=== PATIENT | male | born 1955 | race Caucasian/White ===

== ENCOUNTER 2018-07-28 13:56 | Inpatient (IN) | payer OTHER ==
[2018-07-28] MEDS ORDERED: ACETAMINOPHEN 1000 MG/100 ML VIAL (NON FORMULARY) IVPB ONE (15:03)
--- NOTE | 2018-07-28 15:04 | PDOC ---
History of Present Illness - General Chief Complaint: SIRS, Suspected/Possible Stated Complaint: FEVER/FAMILY REQUEST Time Seen by Provider: 07/28/18 15:02 History Source: Sibling (Sister), Care Home Records - History of Present Illness Initial Comments: Pt is a 62 yo M, with PMH of [facility]per family[facility]". Pt is accompanied by his sister, who states the pt has difficulty eating at baseline (on regular and thin liquid diet), but has not eaten or drank anything for the past 2 days. She states he has also had a fever, and that the residential has not been treating him. She states he has had "strokes in the past from his medications", and that over the past few months, the pt has become more non-verbal, does not follow commands, his extremities are flexed, and there are many days that he does not eat. Pt is not able to provide any history. Of note, the residential records state that the pt temperature was 100.5 on his vital signs, with no recorded Tylenol given today. Past history of alcohol abuse, no cigarettes or illicit drug use per family. No recent travel. Unknown sick contacts at the residential. Surgical: no relevant history. Family: no relevant history. 07/28/18 19:02 Past History - Travel Traveled outside of the country in the last 30 days: No Close contact w/someone who was outside of country & ill: No - Past Medical History Allergies/Adverse Reactions: Allergies Allergy/AdvReac Type Severity Reaction Status Date / Time No Known Allergies Allergy Verified 07/28/18 14:24 Home Medications: Ambulatory Orders Ascorbic Acid [C-500] 500 mg PO DAILY 07/28/18 Aspirin [ASA -] 81 mg PO DAILY 07/28/18 Atorvastatin Calcium [Lipitor] 10 mg PO HS 07/28/18 Divalproex Sodium 250 mg PO BID 07/28/18 Donepezil HCl 10 mg PO DAILY 07/28/18 Haloperidol 2.5 mg PO BID 07/28/18 Haloperidol Decanoate [Haloperidol Decanoate 100] 100 mg IM MONTHLY 07/28/18 Quetiapine Fumarate [Quetiapine Fumarate ER] 300 mg PO HS 07/28/18 Zinc Sulfate 220 mg PO DAILY 07/28/18 Cardiac Disorders: Yes (ashd) COPD: No Dementia: Yes Hypercholesterolemia: Yes Psychiatric Problems: Yes (anxiety schiophrenia bi polor) - Suicide/Smoking/Psychosocial Hx Smoking History: Never smoked Have you smoked in the past 12 months: No Information on smoking cessation initiated: No Hx Alcohol Use: No Drug/Substance Use Hx: No Review of Systems - Review of Systems Able to Perform ROS?: No (clinical condition) Is the patient limited Albanian proficient: Yes *Physical Exam - Vital Signs Last Vital Signs Temp Pulse Resp BP Pulse Ox 103.4 F H 101 H 20 123/64 94 L 07/28/18 14:25 07/28/18 14:25 07/28/18 14:25 07/28/18 14:25 07/28/18 14:25 - Physical Exam General Appearance: Yes: Nourished, Appropriately Dressed, Mild Distress (Pt febrile, diaphoretic, extremities held in flexion.) HEENT: positive: EOMI, VICTORIA, Normal ENT Inspection, Pharynx Normal. negative: Normal Voice (pt non-verbal), Scleral Icterus (R), Scleral Icterus (L), Pharyngeal Erythema, Tonsillar Exudate, Tonsillar Erythema, Nasal Congestion, Rhinorrhea Neck: positive: Trachea midline, Rigid (pt holding extremities and neck rigidly) , Supple. negative: Tender, Lymphadenopathy (R), Lymphadenopathy (L) Respiratory/Chest: positive: Lungs Clear, Normal Breath Sounds. negative: Chest Tender, Respiratory Distress, Accessory Muscle Use, Crackles, Wheezing Cardiovascular: positive: Regular Rhythm, S1, S2, Tachycardia. negative: Regular Rate, Edema, JVD, Murmur Vascular Pulses: Carotid (R): 4+, Carotid (L): 4+ Gastrointestinal/Abdominal: positive: Normal Bowel Sounds, Flat, Soft. negative : Tender, Organomegaly, Pulsatile Mass, Distended, Guarding, Rebound Rectal Exam: positive: deferred Lymphatic: negative: Adenopathy, Tenderness Musculoskeletal: positive: Normal Inspection. negative: CVA Tenderness Extremity: positive: Normal Capillary Refill, Normal Inspection, Pelvis Stable, Other (rigidity of arms and legs, pt will grab examiner's hands, but arms are held flexed). negative: Normal Range of Motion, Tender, Pedal Edema, Erythema Integumentary: positive: Normal Color, Warm, Clammy, Diaphoresis, Other (mild pressure ulcer (stage 1) on L heel that appears to have blood blister). negative: Dry, Jaundice, Cold, Rash Neurologic: positive: Alert, Normal Response, Motor Strength 5/5, Other (Pt will grab examiner's hands, non-verbal (at baseline), has eyes open during examination. Unable to assess lens maker as pt will not follow commands.). negative: lens maker II-XII NML intact, Fully Oriented, Normal Mood/Affect Moderate Sedation - Procedure Monitoring Vital Signs: Procedure Monitoring Vital Signs Temperature 103.4 F H 07/28/18 14:25 Pulse Rate 101 H 07/28/18 14:25 Respiratory Rate 20 07/28/18 14:25 Blood Pressure 123/64 07/28/18 14:25 O2 Sat by Pulse Oximetry (%) 94 L 07/28/18 14:25 ED Treatment Course - LABORATORY CBC & Chemistry Diagram: 07/28/18 15:25 07/28/18 15:25 Medical Decision Making - Medical Decision Making Pt was seen at bedside, also will be seen by attending Dr. Vu. Pt presenting from [facility] "per family's request". Pt is accompanied by his sister, who states the pt has difficulty eating at baseline (on regular and thin liquid diet), but has not eaten or drank anything for the past 2 days. She states he has also had a fever, and that the residential has not been treating him. She states he has had "strokes in the past from his medications", and that over the past few months, the pt has become more non-verbal, does not follow commands, his extremities are flexed, and there are many days that he does not eat. Pt is not able to provide any history. Of note, the residential records state that the pt temperature was 100.5 on his vital signs, with no recorded Tylenol given today. Rectal temp 103.4, 94% on RA. PE showed pt Considering sepsis (UTI vs pneumonia) vs viral infection (influenza) vs NMS (pt on Haldol, seroquel for bipolar) Ordered work-up including septic work-up/parra-cultures, influenza swab, CT head non-contrast and chest x-ray. Provided [interventions/meds] for improvement of [pain/symptom control]. Will continue to reassess pt and monitor for symptomatic improvement. ECG: HR 98, intervals WNL. No significant ST segment elevations or depressions. Flipped T wave in V3, no prior ECG for comparison. 07/28/18 15:57 CBC showed WBC 11.6 UA negative Trop .02 Pending chemistry and head CT read. 07/28/18 16:53 Moderate atrophy and moderate ventricular dilatation. The lateral and third ventricles are slightly more dilated than the fourth likely due to central atrophy and less likely due to normal pressure hydrocephalus or aqueduct of Sylvius narrowing/stenosis. Moderate periventricular chronic microvascular ischemic disease changes. No mass lesion, gross acute infarct or intracranial hemorrhage are identified. Correlate clinically to determine further evaluation and follow-up. 07/28/18 17:17 Chest x-ray also appears clear, no focal infiltrate. CMP: Na 150, Cl 119, AST 91, ALT 157 07/28/18 17:18 Considering no source of infection, likely NMS. Dantrolene contraindicated due to elevated liver enzymes (pt has history of alcohol abuse). Will provide 1 mg IV ativan. 07/28/18 17:25 CK 534 Spoke with Poison Control Center, other options may be bromocriptine and amantadine. Tox Fellow will return call. 07/28/18 18:05 Repeat rectal temp 102.5. Will continue with plan for passive re-cooling, fluid hydration, and ativan as needed. Spoke with Tox Fellow at Poison Control. Suggested step-up to ICU admission, as pt can become hyperthermic quickly, and needs frequent rectal temperature readings. Suggested to stick with ativan PRN as needed, fluid hydration, and to stop the haldol medication. Spoke with ICU resident who will come to see the pt. Repeat rectal temp 102.5. Will continue with plan for passive re-cooling, fluid hydration, and ativan as needed. 07/28/18 18:58 Pt has been accepted for ICU admission. Bed is ready upstairs. Pt is stable at this time. 07/28/18 19:43 *DC/Admit/Observation/Transfer Diagnosis at time of Disposition: Neuroleptic malignant syndrome, Fever of unknown origin - Discharge Dispostion Condition at time of disposition: Guarded Decision to Admit order: Yes - Referrals - Patient Instructions - Post Discharge Activity
[2018-07-28] MEDS ORDERED: ACETAMINOPHEN INJECTION 100 ML IVPB ONE (15:19)
[2018-07-28] MEDS ORDERED: SODIUM CHLORIDE 2,000 ML IV STA (15:20)
[2018-07-28 16:16] LABS: BASO % 0.5 % (0-2.0); HEMATOCRIT 41.3 % (35.4-49); HEMOGLOBIN 14.1 GM/dL (11.7-16.9); MCHC 34.2 g/dl (32.0-35.9); MEAN CELL VOLUME 90.7 fl (80-96); MEAN PLT VOLUME 10.2 fl (7.5-11.1); MONO % 8.3 % (3.8-10.2); NEUT % 73.2 % (42.8-82.8); PLATELET COUNT 287 K/MM3 (134-434); RBC 4.55 M/mm3 (4.00-5.60); RDW 14.4 % (11.9-15.9); WHITE BLOOD COUNT 11.6 K/mm3 (4.0-10.0)
--- NOTE | 2018-07-28 16:19 | EKG ---
Test Reason : Blood Pressure : / mmHG Vent. Rate : 098 BPM Atrial Rate : 098 BPM P-R Int : 130 ms QRS Dur : 074 ms QT Int : 354 ms P-R-T Axes : 051 -02 -05 degrees QTc Int : 451 ms NORMAL SINUS RHYTHM NONSPECIFIC ST ABNORMALITY NO PREVIOUS ECGS AVAILABLE Confirmed by MD ROGELIO, GABBIE ([id number]) on 07/28/2018 4:18:50 PM Referred By: Confirmed By:GABBIE MERCADO MD
[2018-07-28 16:35] LABS: INR 1.36 (0.83-1.09); PROTHROMBIN TIME (PATIENT) 16.1 SEC (9.7-13.0)
[2018-07-28 16:38] LABS: ACTIVATED PTT 28.2 SECONDS (25.2-36.5)
[2018-07-28 16:38] LABS: URINE APPEARANCE CLEAR; URINE BILIRUBIN NEGATIVE (<2.0 mg/dL); URINE COLOR AMBER; URINE GLUCOSE (UA) NEGATIVE (NEGATIVE); URINE KETONE TRACE (NEGATIVE); URINE LEUK ESTERASE NEGATIVE (NEGATIVE); URINE NITRITE NEGATIVE (NEGATIVE); URINE PROTEIN NEGATIVE (NEGATIVE); URINE UROBILINOGEN 4.0 E.U/dl mg/dL (0.2-1.0)
--- NOTE | 2018-07-28 16:47 | PDOC ---
Attending Attestation - Resident Resident Name: Crissy Hall - ED Attending Attestation I have performed the following: I have examined & evaluated the patient, The case was reviewed & discussed with the resident, I agree w/resident's findings & plan, Exceptions are as noted - HPI HPI: 07/28/18 16:42 62 M with h/o dementia, CVAs presenting to ED with altered mental status and poor PO. Pt is current resident at [facility]. Family member states that the pt has not eaten or drank anything in several days. She notes that pt was previously alert and ambulatory, though with baseline dementia. However, over the past few months, she notes that the [facility] has been giving him large amounts of medication to keep him sedated. Pt is on Haldol BID, as well as seroquel and weekly haldol depo injection. Pt now has been exhibiting muscle rigidity and not taking any PO due to difficulty swallowing. - Physicial Exam PE: 07/28/18 16:48 GENERAL: unresponsive HEAD: No signs of trauma EYES: PERRLA, EOMI, sclera anicteric, conjunctiva clear ENT: Auricles normal inspection, hearing grossly normal, nares patent, oropharynx clear without exudates. Moist mucosa NECK: Nontender, no stepoffs, Normal ROM, supple, no lymphadenopathy, JVD, or masses LUNGS: Breath sounds equal, clear to auscultation bilaterally. No wheezes, and no crackles HEART: Regular rate and rhythm, normal S1 and S2, no murmurs, rubs or gallops ABDOMEN: Soft, nontender, normoactive bowel sounds. No guarding, no rebound. No masses EXTREMITIES: no edema. No clubbing or cyanosis. No cords, erythema, or tenderness NEUROLOGICAL: + muscle rigidity SKIN: Warm, Dry, normal turgor, no rashes or lesions noted. - Critical Care Time Total Critical Care Time: 45 Critical Care Statement: The care of this patient involved high complexity decision making to prevent further life threatening deterioration of the patient 's condition and/or to evaluate & treat vital organ system(s) failure or risk of failure. - Medical Decision Making 07/28/18 16:48 62 M with fevers and AMS. Febrile and tachycardic in ED. Will perform septic work up. Pt with rigidity on exam, was given high dose antipsychotics at [facility] - consider NMS. - Labs, cultures - CXR, UA - CT head - IVF, tylenol, abx - admit 07/28/18 17:42 UA wnl CXR with no obvious consolidation. Source of fever unclear at this time. Cannot r/o meningitis as pt unable to cooperate with LP. Will empirically cover with vanc/zosyn Will also tx for neuroleptic malignant syndrome given high dose antipsychotics and muscle rigidity Cannot give dantrolene due to elevated LFTs and hepatotoxicity Will give ativan IV Will notify poison control Admit to hospital
[2018-07-28 17:05] LABS: ALK PHOS 212 U/L (45-117); ANION GAP 7 MMOL/L (8-16); BILIRUBIN,TOTAL 0.7 mg/dL (0.2-1); BLOOD UREA NITROGEN 18 mg/dL (7-18); CALCIUM 8.6 mg/dL (8.5-10.1); CHLORIDE 119 mmol/L (98-107); CO2 24 mmol/L (21-32); CREATININE 0.9 mg/dL (0.55-1.3); GLUCOSE,RANDOM 114 mg/dL (74-106); POTASSIUM 4.7 mmol/L (3.5-5.1); SGOT/AST 91 U/L (15-37); SGPT/ALT 157 U/L (13-61); SODIUM 150 mmol/L (136-145)
[2018-07-28] MEDS ORDERED: LORazepam 2 MG/ML SDV VIAL ONE (17:24)
[2018-07-28] MEDS ORDERED: ACETAMINOPHEN 325 MG TABLET (FP) PO PRN (18:15)
[2018-07-28] MEDS ORDERED: SODIUM CHLORIDE 1,000 ML IV SCH ×2 (18:15→19:54)
[2018-07-28] MEDS ORDERED: PIPERACILLIN/TAZOB 3.375 GM 3.375 GM in DEXTROSE 5%-WATER - 50 ML IVPB ONE (18:18)
[2018-07-28] MEDS ORDERED: VANCOMYCIN 1,250 MG in DEXTROSE 5%-WATER - 250 ML IVPB ONE (18:18)
[2018-07-28] MEDS ORDERED: PIPERACILLIN/TAZOB 3.375 GM 3.375 GM/50 ML BAG IVPB ONE (18:30)
--- NOTE | 2018-07-28 18:35 | HP ---
CHIEF COMPLAINT: altered mental status, poor intake of oral foods and fluids and high grade fever PCP: Dr. Theresa Estes HISTORY OF PRESENT ILLNESS: 62 year old male who is a resident at [facility] with history of dementia, prior alcohol abuse, CVA's, and hyperlipidemia who presented to the ER with an altered mental status, poor oral intake of oral foods and fluids. Family at bedside reported he has been on haldol and seroquel and has been more lethargic with increased muscle rigidity. He presents with a fever of 103.4. CXR and urinalysis is negative. Labs notable for WBC 11.6, normal lactic acid level, sodium 150, chloride 19, ast 91, alt 157 and creatine kinase 534 and a normal troponin. CT scan of head with moderate atrophy and no acute findings of infarct or hemorrhage. EKG showing a normal sinus rhythm with no signs of ischemia, nonspecific ST changes and no prolongation of Qtc. ER has spoke with Poison Control and was given one dosage of IV lorazepam. He has significant hyperthermia and is going to be evaluated by Critical Care Team for a possible ICU admission. He was started on broad spectrum IV antibiotics. He was admitted for a further sepsis workup. ER course was notable for: (1) Fever on unknown etiology / ?Neuroleptic Malignant Syndrome given was taking high dosages of antipsychotics and with increased muscle rigidity (2) Altered Mental Status/Lethargy /Poor Nutrition Recent Travel: Denies PAST MEDICAL HISTORY: Dementia Alcohol Abuse CVA's Hyperlipidemia PAST SURGICAL HISTORY: none Social History: Smoking:Family denies Alcohol:prior history of alcohol abuse Drugs: Family denies Family History: Allergies No Known Allergies Allergy (Verified 07/28/18 14:24) HOME MEDICATIONS: Home Medications Medication Instructions Recorded Ascorbic Acid [C-500] 500 mg PO DAILY 07/28/18 Aspirin [ASA -] 81 mg PO DAILY 07/28/18 Atorvastatin Calcium [Lipitor] 10 mg PO HS 07/28/18 Divalproex Sodium 250 mg PO BID 07/28/18 Donepezil HCl 10 mg PO DAILY 07/28/18 Haloperidol 2.5 mg PO BID 07/28/18 Haloperidol Decanoate [Haloperidol 100 mg IM MONTHLY 07/28/18 Decanoate 100] Quetiapine Fumarate [Quetiapine 300 mg PO HS 07/28/18 Fumarate ER] Zinc Sulfate 220 mg PO DAILY 07/28/18 REVIEW OF SYSTEMS Unable to obtain accurate ROS due to patient mental status CONSTITUTIONAL: Absent: fever, chills, diaphoresis, generalized weakness, malaise, loss of appetite, weight change HEENT: Absent: rhinorrhea, nasal congestion, throat pain, throat swelling, difficulty swallowing, mouth swelling, ear pain, eye pain, visual changes CARDIOVASCULAR: Absent: chest pain, syncope, palpitations, irregular heart rate, lightheadedness , peripheral edema RESPIRATORY: Absent: cough, shortness of breath, dyspnea with exertion, orthopnea, wheezing, stridor, hemoptysis GASTROINTESTINAL: Absent: abdominal pain, abdominal distension, nausea, vomiting, diarrhea, constipation, melena, hematochezia GENITOURINARY: Absent: dysuria, frequency, urgency, hesitancy, hematuria, flank pain, genital pain MUSCULOSKELETAL: Absent: myalgia, arthralgia, joint swelling, back pain, neck pain SKIN: Absent: rash, itching, pallor HEMATOLOGIC/IMMUNOLOGIC: Absent: easy bleeding, easy bruising, lymphadenopathy, frequent infections ENDOCRINE: Absent: unexplained weight gain, unexplained weight loss, heat intolerance, cold intolerance NEUROLOGIC: Absent: headache, focal weakness or paresthesias, dizziness, unsteady gait, seizure, mental status changes, bladder or bowel incontinence, muscle rigidity PSYCHIATRIC: Absent: anxiety, depression, suicidal or homicidal ideation, hallucinations. PHYSICAL EXAMINATION Vital Signs - 24 hr 07/28/18 07/28/18 07/28/18 14:25 16:05 18:07 Temperature 103.4 F H 102.5 F H Pulse Rate 101 H Pulse Rate [ 95 H Right Radial] Respiratory 20 20 20 Rate Blood Pressure 123/64 Blood Pressure 138/83 [Left Arm] O2 Sat by Pulse 94 L 98 98 Oximetry (%) GENERAL: febrile, awake, does not follow simple commands,no acute distress HEAD: normal with no signs of trauma EYES: eyes equal round and reactive EARS, NOSE, THROAT: ears normal, nares patent, no drainage NECK: supple LUNGS: breath sounds equal, no wheezes, and no crackles, no accessory muscle use HEART: rate tachycardic and rhythm normal, S1 and S2 without murmur ABDOMEN: soft, nontender, not distended, no acute abdomen MUSCULOSKELETAL: limited range of motion at all joints. UPPER EXTREMITIES: no cyanosis. No clubbing. no peripheral edema LOWER EXTREMITIES: 2+ pulses, warm, well-perfused. calf tenderness. No peripheral edema NEUROLOGICAL: no focal deficits SKIN: warm, dry, normal turgor, no rashes or lesions noted, normal capillary refill Laboratory Results - last 24 hr 07/28/18 07/28/18 07/28/18 15:25 15:25 15:25 WBC 11.6 H RBC 4.55 Hgb 14.1 Hct 41.3 MCV 90.7 MCH 31.0 MCHC 34.2 RDW 14.4 Plt Count 287 MPV 10.2 Absolute Neuts (auto) 8.4 H Neutrophils % 73.2 Lymphocytes % 18.0 Monocytes % 8.3 Eosinophils % 0.0 Basophils % 0.5 Nucleated RBC % 0 PT with INR 16.10 H INR 1.36 H PTT (Actin FS) 28.2 VBG pH POC VBG pCO2 POC VBG pO2 Mixed VBG HCO3 Sodium 150 H Potassium 4.7 Chloride 119 H Carbon Dioxide 24 Anion Gap 7 L BUN 18 Creatinine 0.9 Creat Clearance w eGFR > 60 Random Glucose 114 H Lactic Acid Calcium 8.6 Total Bilirubin 0.7 AST 91 H ALT 157 H Alkaline Phosphatase 212 H Creatine Kinase Creatine Kinase Index CK-MB (CK-2) Troponin I Total Protein 8.0 Albumin 3.0 L Urine Color Urine Appearance Urine pH Ur Specific Whitney Urine Protein Urine Glucose (UA) Urine Ketones Urine Blood Urine Nitrite Urine Bilirubin Urine Urobilinogen Ur Leukocyte Esterase 07/28/18 07/28/18 07/28/18 15:25 15:25 15:50 WBC RBC Hgb Hct MCV MCH MCHC RDW Plt Count MPV Absolute Neuts (auto) Neutrophils % Lymphocytes % Monocytes % Eosinophils % Basophils % Nucleated RBC % PT with INR INR PTT (Actin FS) VBG pH POC VBG pCO2 POC VBG pO2 Mixed VBG HCO3 Sodium Potassium Chloride Carbon Dioxide Anion Gap BUN Creatinine Creat Clearance w eGFR Random Glucose Lactic Acid 1.6 Calcium Total Bilirubin AST ALT Alkaline Phosphatase Creatine Kinase 534 H Creatine Kinase Index 0.3 CK-MB (CK-2) 1.9 Troponin I 0.02 Total Protein Albumin Urine Color Danya Urine Appearance Clear Urine pH 5.0 Ur Specific Whitney 1.028 Urine Protein Negative Urine Glucose (UA) Negative Urine Ketones Trace H Urine Blood Negative Urine Nitrite Negative Urine Bilirubin Negative Urine Urobilinogen 4.0 e.u/dl Ur Leukocyte Esterase Negative 07/28/18 16:00 WBC RBC Hgb Hct MCV MCH MCHC RDW Plt Count MPV Absolute Neuts (auto) Neutrophils % Lymphocytes % Monocytes % Eosinophils % Basophils % Nucleated RBC % PT with INR INR PTT (Actin FS) VBG pH Cancelled POC VBG pCO2 Cancelled POC VBG pO2 Cancelled Mixed VBG HCO3 Cancelled Sodium Potassium Chloride Carbon Dioxide Anion Gap BUN Creatinine Creat Clearance w eGFR Random Glucose Lactic Acid Calcium Total Bilirubin AST ALT Alkaline Phosphatase Creatine Kinase Creatine Kinase Index CK-MB (CK-2) Troponin I Total Protein Albumin Urine Color Urine Appearance Urine pH Ur Specific Whitney Urine Protein Urine Glucose (UA) Urine Ketones Urine Blood Urine Nitrite Urine Bilirubin Urine Urobilinogen Ur Leukocyte Esterase CT scan of head 07/28/2018 Moderate atrophy and moderate ventricular dilatation. The lateral and third ventricles are slightly more dilated than the fourth likely due to central atrophy and less likely due to normal pressure hydrocephalus or aqueduct of Sylvius narrowing/stenosis. Moderate periventricular chronic microvascular ischemic disease changes. No mass lesion, gross acute infarct or intracranial hemorrhage are identified. Correlate clinically to determine further evaluation and follow-up. ASSESSMENT/PLAN: This is a 62 year old male resident at [facility] with history of dementia, prior alcohol abuse, CVA's, and hyperlipidemia who presented to the ER with an altered mental status, poor oral intake of oral foods and fluids , increased lethargy and muscle rigidity. He presented with a fever of 103.4. CXR and urinalysis is negative. Labs notable for WBC 11.6, normal lactic acid level, sodium 150, chloride 119, ast 91,and alt 157. Fever of Unknown Etiology/?Neuroleptic Malignant Syndrome UA negative, CXR with no consolidations. Mild leukocytosis and differential is normal. Lactic acid level normal. Blood cultures are pending. No evidence of hypotension. ID consulted- Dr. Fontanez. Continue with IV vancomycin and pippercillin. Continue with Tylenol 650 mg every 4hr with close monitoring of liver enzymes. Repeat CMP in am. Will check echocardiogram to exclude vegetations. CVA Statin placed on hold in setting of elevated LFT's. Continue aspirin. Hyperlipidemia Stain placed on hold, elevated LFT's. Resume once LFT's improve. DVT Prophylaxsis Lovenox ordered. Malnutrition/Hypoalbuminia IVF started at NS at 50 cc/hr, monitor electrolytes. Altered Mental Status CT scan of head with no acute findings of infarct or hemorrhage. Haldol and Seroquel placed on hold. FEN NPO, IVF,monitor electrolytes. Advance as tolerated. Visit type - Emergency Visit Emergency Visit: Yes ED Registration Date: 07/28/18 Care time: The patient presented to the Emergency Department on the above date and was hospitalized for further evaluation of their emergent condition. - New Patient This patient is new to me today: Yes Date on this admission: 07/28/18 - Critical Care Critical Care patient: No
[2018-07-28] MEDS ORDERED: ACETAMINOPHEN 650 MG SUPP.RECT PR ONE (19:21)
[2018-07-28] MEDS ORDERED: ENOXAPARIN NA (PORCINE) 40 MG/0.4 ML DISP.SYRIN SQ SCH (19:45)
[2018-07-28] MEDS ORDERED: SODIUM CHLORIDE 1,000 ML IV STA (19:52)
[2018-07-28] MEDS ORDERED: ACETAMINOPHEN 650 MG SUPP.RECT ONE (19:53)
--- NOTE | 2018-07-28 20:09 | CONSULT ---
Consult Consult Specialty:: Pulm/CCM Referred by:: Madison Lopez Reason for Consultation:: Suspected NMS vs. Meningitis vs. Seizure - History of Present Illness Chief Complaint: Poor PO intake and AMS History of Present Illness: Briefly, 62 yo M [place] resident h/o dementia, ?seizure on depakote, psychiatric disorder on seroquel and haldol both IM depot and oral, alcohol abuse, CVA with unknown residual sequela p/w worsening AMS and poor PO intake. Per family at bedside, patient has poor food intake for 1 month and he has to be fed, his lower extremities have also appeared contracted for 1 month for unknown reason, at baseline he opens eyes but has been responsive to painful stimuli only in the past month. Family decided to bring the patient in for investigation. Patient is receiving PO haldol 2.5mg BID and depot IM injection weekly per chart. Family is uncertain how long the patient has been on anti-psychotic medications. At [place], pt's temp was 100F and did not decrease with tylenol. In the ED, his temp was 103.4F and improved marginally to 102.5F with IV tylenol. Sepsis work-up has been negative. Family denies pt having cough, diarrhea, URI, sacral ulcer. 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 Cardio/Vascular: Yes: Hyperlipdemia Gastrointestinal: Yes: Other (poor po intake) - Alcohol/Substance Use Hx Alcohol Use: No - Smoking History Smoking history: Never smoked Have you smoked in the past 12 months: No Home Medications - Allergies Allergies/Adverse Reactions: Allergies Allergy/AdvReac Type Severity Reaction Status Date / Time No Known Allergies Allergy Verified 07/28/18 14:24 - Home Medications Home Medications: Ambulatory Orders Ascorbic Acid [C-500] 500 mg PO DAILY 07/28/18 Aspirin [ASA -] 81 mg PO DAILY 07/28/18 Atorvastatin Calcium [Lipitor] 10 mg PO HS 07/28/18 Divalproex Sodium 250 mg PO BID 07/28/18 Donepezil HCl 10 mg PO DAILY 07/28/18 Haloperidol 2.5 mg PO BID 07/28/18 Haloperidol Decanoate [Haloperidol Decanoate 100] 100 mg IM MONTHLY 07/28/18 Quetiapine Fumarate [Quetiapine Fumarate ER] 300 mg PO HS 07/28/18 Zinc Sulfate 220 mg PO DAILY 07/28/18 Review of Systems Unable to obtain ROS, reason: Unresponsive Physical Exam Vital Signs: Vital Signs Temperature 102.5 F H 07/28/18 18:07 Pulse Rate 95 H 07/28/18 18:07 Respiratory Rate 20 07/28/18 18:07 Blood Pressure 138/83 07/28/18 18:07 O2 Sat by Pulse Oximetry (%) 98 07/28/18 18:07 HENT: Yes: Atraumatic, Normocephalic Neck: Yes: Supple, Trachea Midline Cardiovascular: Yes: Regular Rate and Rhythm, S1, S2. No: Murmur Respiratory: Yes: Regular, CTA Bilaterally Gastrointestinal: Yes: Normal Bowel Sounds, Soft. No: Distention, Tenderness Extremities: Yes: Other (both legs are hyperflexed, feet are plantarflexed) Edema: No Neurological: Yes: Lethargy, Unresponsive. No: Alert, Oriented Labs: CBC, BMP 07/28/18 15:25 07/28/18 15:25 Imaging - Results X-ray: Image Reviewed EKG: Image Reviewed Assessment/Plan 62 yo M [place] resident h/o dementia, ?seizure on depakote, psychiatric disorder on seroquel and haldol both IM depot and oral, alcohol abuse, CVA with unknown residual sequela admitted to ICU for acute on chronic AMS, hyperthermia, and possible meningitis. Neuro: Altered mental status ( NMS, meningitis or seizure disorder ) 1. worsening with chronic lower extremities rigidity, AMS, high grade temp refractory to IV tylenol 2. hold offending anti-psychotic medications 3. aggressive and supportive care: give dantrolene, fluids, cooling blankets, continuous temp monitoring, daily complete lab work, ativan PRN 4. low threshold for intubation and use of paralytics should severe dysautonomia occurs 5. EEG to r/o nonconvulsive status epilepticus 6. Neurology consult CVA 1. cont. asa Psychiatric disorder 1. hold all anti-psychotic medications ID: Fever of unknown origin 1. sepsis workup negative, need to r/o meningitis but LP is delayed due to pt unable to cooperate 2. fluid resusitation 4. will initiate empiric coverage for bacterial meningitis 5. isolation and droplet precaution for now 6. ID consult GI: Elevated LFTs 1. unknown baseline 2. alcohol abuse vs. drug/toxin vs. NAFLD vs. muscle injury 3. check GGT 3. cont. to trend LFTs and daily coag ppx: lovenox Dispo: will admit to ICU [place] PGY3 ICU resident Visit type - Emergency Visit Emergency Visit: Yes ED Registration Date: 07/28/18 Care time: The patient presented to the Emergency Department on the above date and was hospitalized for further evaluation of their emergent condition. - New Patient This patient is new to me today: Yes Date on this admission: 07/28/18 - Critical Care Critical Care patient: Yes Total Critical Care Time (in minutes): 40 Critical Care Statement: The care of this patient involved high complexity decision making to prevent further life threatening deterioration of the patient 's condition and/or to evaluate & treat vital organ system(s) failure or risk of failure.
[2018-07-28] MEDS ORDERED: DANTROLENE SODIUM 20 MG VIAL IVPUSH ONE (20:59)
[2018-07-28] MEDS ORDERED: PNEUMOC 13-VAL CONJ-DIP CRM/PF 0.5 ML DISP.SYRIN IM ONE (21:39)
[2018-07-28] MEDS ORDERED: DIVALPROEX SODIUM 250 MG TABLET E.C. PO SCH (22:00)
[2018-07-28] MEDS ORDERED: ATORVASTATIN CA 10 MG TABLET (FP) PO SCH (22:00)
[2018-07-28] MEDS: AMPICILLIN - 2 GM in SODIUM CHLORIDE 100 ML IVPB SCH (22:39)
[2018-07-28] MEDS: MUPIROCIN 2% TOPICAL OINTMENT FOR DECOLONIZATION NS SCH (22:40)
[2018-07-28] MEDS ORDERED: DEXTROSE 5%-WATER 100 ML IVPB ONE (22:44)
[2018-07-28] MEDS: CHLORHEXIDINE GLUCONATE 4% CLEANSER FOR DECOLONIZATION TP SCH (22:46)
[2018-07-28] MEDS: CEFTRIAXONE 2 GM in DEXTROSE 5%-WATER 100 ML IVPB SCH ×2 (22:46→22:47)
[2018-07-28] MEDS: DEXAMETHASONE SOD PHOSPHATE 10 MG/1 ML VIAL IVPB SCH (22:46)
[2018-07-28] MEDS ORDERED: DANTROLENE SODIUM IVPUSH ONE (23:45)
[2018-07-29] MEDS: VALPROATE SODIUM 500 MG/5 ML VIAL IVPB SCH ×3 (00:31→21:58)
[2018-07-29] MEDS ORDERED: PT OWN MED DRAWER 7, Y5N ONE ×5 (00:44→19:52)
[2018-07-29] MEDS: AMPICILLIN - 2 GM in SODIUM CHLORIDE 100 ML IVPB SCH ×6 (01:56→20:15)
[2018-07-29] MEDS: DEXAMETHASONE SOD PHOSPHATE 10 MG/1 ML VIAL IVPB SCH ×4 (02:19→21:58)
[2018-07-29 05:57] LABS: BASO % 0.2 % (0-2.0); HEMOGLOBIN 12.2 GM/dL (11.7-16.9); LYMPH % 7.8 % (8-40); MCH 31.6 pg (25.7-33.7); MCHC 34.9 g/dl (32.0-35.9); MEAN CELL VOLUME 90.3 fl (80-96); MEAN PLT VOLUME 10.1 fl (7.5-11.1); MONO % 1.1 % (3.8-10.2); NEUT % 90.9 % (42.8-82.8); PLATELET COUNT 214 K/MM3 (134-434); RBC 3.88 M/mm3 (4.00-5.60); RDW 13.9 % (11.9-15.9); WHITE BLOOD COUNT 7.7 K/mm3 (4.0-10.0)
[2018-07-29] MEDS ORDERED: VANCOMYCIN 1 GM in D5W (PRE-DOCKED) 1,000 MG/250 ML IVPB ONE (06:00)
[2018-07-29 06:24] LABS: INR 1.29 (0.83-1.09); PROTHROMBIN TIME (PATIENT) 15.3 SEC (9.7-13.0)
[2018-07-29 06:29] LABS: ALBUMIN 2.5 g/dl (3.4-5.0); BILIRUBIN,DIRECT 0.2 mg/dL (0.0-0.2); BILIRUBIN,TOTAL 0.6 mg/dL (0.2-1); TOT PROT 6.5 g/dl (6.4-8.2)
[2018-07-29 06:31] LABS: ALBUMIN 2.6 g/dl (3.4-5.0); ALK PHOS 162 U/L (45-117); ANION GAP 5 MMOL/L (8-16); BILIRUBIN,TOTAL 0.6 mg/dL (0.2-1); BLOOD UREA NITROGEN 15 mg/dL (7-18); CALCIUM 7.9 mg/dL (8.5-10.1); CHLORIDE 121 mmol/L (98-107); CO2 25 mmol/L (21-32); CREATININE 0.6 mg/dL (0.55-1.3); GLUCOSE,RANDOM 145 mg/dL (74-106); MAGNESIUM 2.5 mg/dL (1.8-2.4); POTASSIUM 4.3 mmol/L (3.5-5.1); SGOT/AST 64 U/L (15-37); SGPT/ALT 119 U/L (13-61); SODIUM 151 mmol/L (136-145); TOT PROT 6.6 g/dl (6.4-8.2)
[2018-07-29] MEDS: DEXTROSE 5%-WATER - 1,000 ML IV SCH (07:15)
--- NOTE | 2018-07-29 07:30 | PN ---
Physical Exam: SUBJECTIVE: Patient seen and examined OBJECTIVE: Vital Signs Period Temp Pulse Resp BP Sys/Cortes Pulse Ox Last 24 Hr 99.2 F-103.4 F 72-101 16-25 110-138/64-83 94-98 GENERAL: Awake, not responsive, opens eyes spontaneously HEAD: No signs of trauma, normocephalic, atraumatic EYES: pupils 2mm b/l, reactive, does not track ENT: Nares patent, oropharynx clear without exudates. Moist mucosa LUNGS: No distress, speaks full sentences, clear to auscultation bilaterally HEART: Regular rate and rhythm, normal S1 and S2, no murmurs appreciated, peripheral pulses normal and equal bilaterally ABDOMEN: Soft, non-distended, normoactive bowel sounds EXTREMITIES: Rigid extremities, does not move spontaneously, can passively range w/ moderate resistance NEUROLOGICAL: Not verbal, does not follow commands, does not withdraw to pain, rigid SKIN: Warm, Dry ASSESSMENT/PLAN: The patient is a 62[place] resident w/ a PMH of Alzheimer's dementia, seizure ( Depakote), EtOH abuse, Schizophrenia, BD, and anxiety disorder on seroquel and haldol (IM & PO), CVA with unknown residual sequela who was admitted to the ICU for acute on chronic AMS, hyperthermia, and possible meningitis. Neuro Altered mental status ( NMS, meningitis or seizure disorder ) Worsening with chronic lower extremities rigidity, AMS, high grade temp refractory to IV tylenol -Hold offending anti-psychotic medications -s/p dantrolene x1 -Plan for LP today -EEG ordered to r/o occult status epilepticus -Neurology consulted Hx of CVA -Aspirin 81mg PO DAILY Schizophrenia -Antipsychotics held BD Alzheimer's dementia -Valproate 250mg IV BID -Donepezil 10mg PO Qhs CV HLD -Hold home statin for transaminitis Pulm Maintaining oxygenation on 2L NC GI Transaminitis w/ unknown baseline EtOH abuse vs. drug/toxin vs. NAFLD vs. muscle injury -Banana bag -Thiamine, folate, MVI Nutrition Hx of Vit B deficiency, ascorbic acid deficiency -Ascorbic Acid (Vitamin C -) 500 mg PO DAILY ART -Zinc Sulfate (Orazinc -) 220 mg PO DAILY ART -Nutrition consulted IVF -D5W Heme DVT Ppx -Hep 5000u SQ Q8H to start s/p LP ID Fever of unknown origin -Cont. D5W -Ampicillin 2g IV Q4H -Ceftriaxone 2g IV BID -Acetaminophen 650 mg PO Q4H PRN -Isolation and droplet precaution -ID consulted Code status -Full code Dispo: Patient continues to require ICU level of care NOK: Patient w/ 2 sisters, no adult children Mary Kate Alejandre [phone] Visit type - Emergency Visit Emergency Visit: Yes ED Registration Date: 07/28/18 Care time: The patient presented to the Emergency Department on the above date and was hospitalized for further evaluation of their emergent condition. - New Patient This patient is new to me today: Yes Date on this admission: 07/29/18 - Critical Care Critical Care patient: Yes Total Critical Care Time (in minutes): 40 Critical Care Statement: The care of this patient involved high complexity decision making to prevent further life threatening deterioration of the patient 's condition and/or to evaluate & treat vital organ system(s) failure or risk of failure.
[2018-07-29] MEDS ORDERED: DEXTROSE 5%-WATER 100 ML IVPB ONE ×2 (09:49→19:53)
--- NOTE | 2018-07-29 09:57 | CON.NEURO ---
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 Cardio/Vascular: Yes: Hyperlipdemia Gastrointestinal: Yes: Other (poor po intake) - Alcohol/Substance Use Hx Alcohol Use: No - Smoking History Smoking history: Never smoked Have you smoked in the past 12 months: No Home Medications - Allergies Allergies/Adverse Reactions: Allergies Allergy/AdvReac Type Severity Reaction Status Date / Time No Known Allergies Allergy Verified 07/28/18 14:24 - Home Medications Home Medications: Ambulatory Orders Ascorbic Acid [C-500] 500 mg PO DAILY 07/28/18 Aspirin [ASA -] 81 mg PO DAILY 07/28/18 Atorvastatin Calcium [Lipitor] 10 mg PO HS 07/28/18 Divalproex Sodium 250 mg PO BID 07/28/18 Donepezil HCl 10 mg PO DAILY 07/28/18 Haloperidol 2.5 mg PO BID 07/28/18 Haloperidol Decanoate [Haloperidol Decanoate 100] 100 mg IM MONTHLY 07/28/18 Quetiapine Fumarate [Quetiapine Fumarate ER] 300 mg PO HS 07/28/18 Zinc Sulfate 220 mg PO DAILY 07/28/18 Physical Exam-Neuro Vital Signs: Vital Signs Temperature 99.2 F 07/29/18 06:00 Pulse Rate 72 07/29/18 06:00 Respiratory Rate 18 07/29/18 06:00 Blood Pressure 113/74 07/29/18 06:00 O2 Sat by Pulse Oximetry (%) 97 07/28/18 21:12 Labs: CBC, BMP 07/29/18 05:15 07/29/18 05:15 INR, PTT INR 1.29 (0.83-1.09) H 07/29/18 05:15 Assessment/Plan cc Altered mental status HPI 62 year old male history of Dementia, alcohol abuse, storke, HLD . Patient was in senior care and was brought to hospital as he was having mental status detioration. [place] has ct head showed cortical atrophy and found to have high grade fever and suspected to have NMS and dantrolene was given Patient was given medication for menigitis and no psinal tap was done. His wbc is coming dwon and has been febrile. He is not waking up . PAST MEDICAL HISTORY: Dementia Alcohol Abuse CVA's Hyperlipidemia PAST SURGICAL HISTORY: none Social History: Smoking:Family denies Alcohol:prior history of alcohol abuse Drugs: Family denies Family History: Allergies No Known Allergies Allergy (Verified 07/28/18 14:24) HOME MEDICATIONS: Home Medications Medication Instructions Recorded Ascorbic Acid [C-500] 500 mg PO DAILY 07/28/18 Aspirin [ASA -] 81 mg PO DAILY 07/28/18 Atorvastatin Calcium [Lipitor] 10 mg PO HS 07/28/18 Divalproex Sodium 250 mg PO BID 07/28/18 Donepezil HCl 10 mg PO DAILY 07/28/18 Haloperidol 2.5 mg PO BID 07/28/18 Haloperidol Decanoate [Haloperidol 100 mg IM MONTHLY 07/28/18 Decanoate 100] Quetiapine Fumarate [Quetiapine 300 mg PO HS 07/28/18 Fumarate ER] Zinc Sulfate 220 mg PO DAILY 07/28/18 ROS FH reviewed in chart NEUROLOGICAL EXAMINATION VSS and febrile Paitient is not responding to verbal stimuli He is wincing to pain, and there is less face movement to painful stimuli( due to previous stroke) There is rigidity in upper and lower extrmeity pupils reactive mild terminal neck stiffness( part of generalized rigidity) Assessment/Plan 62 year old male history of alcohol abuse, dementia with behavior disturbance on two antipsychotic medicaitons ( haldol and seroquel) in [place]. He is brought with high fever, rigidity , slightly high cpk and AMS. Suspected to have NMS and Possible Meningitis . My impression is Possible NMS ( Neuroleptic Malignant syndrome) vs Meningitis ( Less Likely) Plan: hold antipsychotic Medicaitons, iv fluid and supportive care - may obtain SPinal tap for rule out meningits - may add folic acid, thiamine and mvi - EEG to rule out subclinical status - MRI of brain can be obtained Thanking you so much Junior Heart MD
[2018-07-29] MEDS: CEFTRIAXONE 2 GM in DEXTROSE 5%-WATER 100 ML IVPB SCH ×2 (09:58→21:58)
[2018-07-29] MEDS: ASPIRIN 81 MG CHEWABLE TABLETS PO SCH (09:59)
[2018-07-29] MEDS: ASCORBIC ACID 500 MG TABLET (FP) PO SCH (10:00)
[2018-07-29] MEDS: MUPIROCIN 2% TOPICAL OINTMENT FOR DECOLONIZATION NS SCH ×2 (10:00→21:58)
[2018-07-29] MEDS ORDERED: ASCORBIC ACID 500 MG PO SCH (10:00)
[2018-07-29] MEDS ORDERED: PNEUMOCOCCAL 23 VACCINE 0.5 ML VIAL IM ONE (10:00)
[2018-07-29] MEDS: ZINC SULFATE 220 MG CAPSULE (FP) PO SCH (10:00)
[2018-07-29] MEDS ORDERED: FOLIC ACID INJECTION - 1 MG, THIAMINE HCL 100 MG, MULTIVIT INJECTION ADULT 10 ML in SOD... IVPB ONE (12:09)
--- NOTE | 2018-07-29 12:47 | PN ---
Teaching Attending Note Name of Resident: Boston Araujo ATTENDING PHYSICIAN STATEMENT I saw and evaluated the patient. I reviewed the resident's note and discussed the case with the resident. I agree with the resident's findings and plan as documented. SUBJECTIVE: Pt seen and examined in the ICU. Remains lethargic with rigidity. Fever curve trending down. OBJECTIVE: Vital Signs Period Temp Pulse Resp BP Sys/Cortes Pulse Ox Last 24 Hr 98.7 F-103.4 F 65-101 16-25 105-138/64-85 94-100 Intake & Output 07/26/18 07/27/18 07/28/18 07/29/18 23:59 23:59 23:59 23:59 Intake Total 1250 1450 Output Total 240 Balance 1010 1450 Weight 66.8 kg Gen: lethargic Heart: RRR Lung: decreased breath sounds at the bases Abd: soft, nontender Ext: no edema CBC, BMP 07/29/18 05:15 07/29/18 05:15 Active Medications Acetaminophen (Tylenol -) 650 mg PO Q4H PRN PRN Reason: FEVER Ascorbic Acid (Vitamin C -) 500 mg PO DAILY COUNT INCLUDES THE [facility] Last Admin: 07/29/18 10:00 Dose: Not Given Aspirin (Asa -) 81 mg PO DAILY COUNT INCLUDES THE [facility] Last Admin: 07/29/18 09:59 Dose: Not Given Chlorhexidine Gluconate (Hibiclens For Decolonization -) 1 applic TP HS COUNT INCLUDES THE [facility] Last Admin: 07/28/18 22:46 Dose: 1 applic Dexamethasone Sodium Phosphate (Decadron Injection -) 10 mg IVPB Q6H COUNT INCLUDES THE [facility] Last Admin: 07/29/18 09:59 Dose: 10 mg Donepezil HCl (Aricept -) 10 mg PO [facility] Ampicillin Sodium 2 gm/ Sodium (Chloride) 100 mls @ 200 mls/hr IVPB Q4H COUNT INCLUDES THE [facility]; Protocol Last Admin: 07/29/18 09:59 Dose: 200 mls/hr Ceftriaxone Sodium 2 gm/ (Dextrose) 100 mls @ 100 mls/hr IVPB BID COUNT INCLUDES THE [facility] Last Admin: 07/29/18 09:58 Dose: 100 mls/hr Dextrose (D5w -) 1,000 mls @ 42 mls/hr IV ASDIR COUNT INCLUDES THE [facility] Last Admin: 07/29/18 07:15 Dose: 42 mls/hr Folic Acid 1 mg/ Thiamine HCl 100 mg/ Multivitamins/Minerals 10 ml/ Sodium Chloride 1,000 mls @ 125 mls/hr IVPB ONCE ONE Stop: 07/29/18 20:08 Mupirocin (Bactroban Ointment (For Decolonization) -) 1 applic NS BID COUNT INCLUDES THE [facility] Stop: 08/02/18 21:59 Last Admin: 07/29/18 10:00 Dose: Not Given Thiamine HCl (Vitamin B1 Injection -) 200 mg IVPB DAILY COUNT INCLUDES THE [facility] Valproate Sodium (Depacon Injection -) 250 mg IVPB BID COUNT INCLUDES THE [facility] Last Admin: 07/29/18 10:00 Dose: 250 mg Zinc Sulfate (Orazinc -) 220 mg PO DAILY COUNT INCLUDES THE [facility] Last Admin: 07/29/18 10:00 Dose: Not Given ASSESSMENT AND PLAN: Altered Mental Status r/o Neuroleptic Malignant Syndrome r/o Acute Meningitis r/o Seizures Seizure Disorder h/o CVA Schizophrenia Alzheimer's Dementia - received dantrolene - IVF - LP if can obtain consent - EEG - continue empiric antibiotics - f/u cultures - O2 to keep SpO2 >90% - aspiration precautions - increase free water - DVT prophylaxis - continue ICU monitoring critical care time spent in reviewing chart, evaluating patient and formulating plan 35 min
--- NOTE | 2018-07-29 15:52 | CON.ID ---
Consult Consult Specialty:: infectious diseases Referred by:: hospitalist Reason for Consultation:: sepsis - History of Present Illness Chief Complaint: ams History of Present Illness: 62 year old male who is a resident at [facility] with history of dementia, prior alcohol abuse, CVA's, and hyperlipidemia who presented to the ER with an altered mental status, poor oral intake of oral foods and fluids. Family at bedside reported he has been on haldol and seroquel and has been more lethargic with increased muscle rigidity. He presents with a fever of 103.4. CXR and urinalysis is negative. Labs notable for WBC 11.6, normal lactic acid level, sodium 150, chloride 19, ast 91, alt 157 and creatine kinase 534 and a normal troponin. CT scan of head with moderate atrophy and no acute findings of infarct or hemorrhage. EKG showing a normal sinus rhythm with no signs of ischemia, nonspecific ST changes and no prolongation of Qtc. ER has spoke with Poison Control and was given one dosage of IV lorazepam. 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 Cardio/Vascular: Yes: Hyperlipdemia Gastrointestinal: Yes: Other (poor po intake) - Alcohol/Substance Use Hx Alcohol Use: No - Smoking History Smoking history: Never smoked Have you smoked in the past 12 months: No Home Medications - Allergies Allergies/Adverse Reactions: Allergies Allergy/AdvReac Type Severity Reaction Status Date / Time No Known Allergies Allergy Verified 07/28/18 14:24 - Home Medications Home Medications: Ambulatory Orders Ascorbic Acid [C-500] 500 mg PO DAILY 07/28/18 Aspirin [ASA -] 81 mg PO DAILY 07/28/18 Atorvastatin Calcium [Lipitor] 10 mg PO HS 07/28/18 Divalproex Sodium 250 mg PO BID 07/28/18 Donepezil HCl 10 mg PO DAILY 07/28/18 Haloperidol 2.5 mg PO BID 07/28/18 Haloperidol Decanoate [Haloperidol Decanoate 100] 100 mg IM MONTHLY 07/28/18 Quetiapine Fumarate [Quetiapine Fumarate ER] 300 mg PO HS 07/28/18 Zinc Sulfate 220 mg PO DAILY 07/28/18 Review of Systems Unable to obtain ROS, reason: unable to obtain Physical Exam Vital Signs: Vital Signs Temperature 99.7 F H 07/29/18 14:00 Pulse Rate 70 07/29/18 14:00 Respiratory Rate 18 07/29/18 14:00 Blood Pressure 108/76 07/29/18 14:00 O2 Sat by Pulse Oximetry (%) 100 07/29/18 09:00 Constitutional: Yes: Other (non verbal,contracted) Eyes: Yes: Conjunctiva Clear Cardiovascular: Yes: Regular Rate and Rhythm Respiratory: Yes: Regular, On Nasal O2, Poor Air Entry (bases), Rhonchi Gastrointestinal: Yes: Normal Bowel Sounds, Soft Musculoskeletal: Yes: WNL Extremities: Yes: Other (contracted) Neurological: Yes: Alert, Other Psychiatric: Yes: Other Labs: CBC, BMP 07/29/18 05:15 07/29/18 05:15 Imaging - Results Chest X-ray: Report Reviewed, Image Reviewed Cat Scan: Report Reviewed, Image Reviewed Assessment/Plan after looking at the history and to see how the patient came with along with infection i am worried that the symptoms could be due to drugs which patient was been given for agitation also now patient is coughing and producing sputum Altered Mental Status r/o Neuroleptic Malignant Syndrome r/o Seizures Seizure Disorder h/o CVA Schizophrenia Alzheimer's Dementia drug reaction plan would continue abx if patient does not spike then will pull of ampicillin also please send sputum cx hydration hyperthermia mgmt rest as per icu cc 45 min
--- NOTE | 2018-07-29 16:45 | PN ---
Physical Exam: SUBJECTIVE: Patient seen and examined Unable to obtain any ROS as patient being non verbal at this time. OBJECTIVE: Vital Signs Period Temp Pulse Resp BP Sys/Cortes Pulse Ox Last 24 Hr 98.7 F-102.5 F 65-95 16-25 105-138/69-85 96-100 GENERAL: in no acute distress. HEAD: Normal with no signs of trauma. EYES: PERRL, extraocular movements intact, sclera anicteric, conjunctiva clear. No ptosis. ENT: Ears normal, nares patent, oropharynx clear without exudates, moist mucous membranes. NECK: Trachea midline, full range of motion, supple. LUNGS: Breath sounds equal, clear to auscultation bilaterally, no wheezes, no crackles, no accessory muscle use. HEART: Regular rate and rhythm, S1, S2 without murmur, rub or gallop. ABDOMEN: Soft, nontender, nondistended, normoactive bowel sounds, no guarding, no rebound, no hepatosplenomegaly, no masses. EXTREMITIES: 2+ pulses, warm, well-perfused, no edema. NEUROLOGICAL: Cranial nerves II through XII grossly intact. gait not observed. AAOX1-2 SKIN: Warm, dry, normal turgor, no rashes or lesions noted Laboratory Results - last 24 hr 07/28/18 07/28/18 07/28/18 15:25 15:25 15:25 WBC 11.6 H RBC 4.55 Hgb 14.1 Hct 41.3 MCV 90.7 MCH 31.0 MCHC 34.2 RDW 14.4 Plt Count 287 MPV 10.2 Absolute Neuts (auto) 8.4 H Neutrophils % 73.2 Lymphocytes % 18.0 Monocytes % 8.3 Eosinophils % 0.0 Basophils % 0.5 Nucleated RBC % 0 PT with INR INR PTT (Actin FS) 28.2 Sodium 150 H Potassium 4.7 Chloride 119 H Carbon Dioxide 24 Anion Gap 7 L BUN 18 Creatinine 0.9 Creat Clearance w eGFR > 60 Random Glucose 114 H Lactic Acid Calcium 8.6 Magnesium Total Bilirubin 0.7 Direct Bilirubin GGT AST 91 H ALT 157 H Alkaline Phosphatase 212 H Creatine Kinase Creatine Kinase Index CK-MB (CK-2) Troponin I C-Reactive Protein Total Protein 8.0 Albumin 3.0 L Urine Color Urine Appearance Urine pH Ur Specific [place] Urine Protein Urine Glucose (UA) Urine Ketones Urine Blood Urine Nitrite Urine Bilirubin Urine Urobilinogen Ur Leukocyte Esterase Influenza A (Rapid) Influenza B (Rapid) RSV Rapid 07/28/18 07/28/18 07/28/18 15:25 15:25 15:50 WBC RBC Hgb Hct MCV MCH MCHC RDW Plt Count MPV Absolute Neuts (auto) Neutrophils % Lymphocytes % Monocytes % Eosinophils % Basophils % Nucleated RBC % PT with INR INR PTT (Actin FS) Sodium Potassium Chloride Carbon Dioxide Anion Gap BUN Creatinine Creat Clearance w eGFR Random Glucose Lactic Acid 1.6 Calcium Magnesium Total Bilirubin Direct Bilirubin GGT AST ALT Alkaline Phosphatase Creatine Kinase 534 H Creatine Kinase Index 0.3 CK-MB (CK-2) 1.9 Troponin I 0.02 C-Reactive Protein 4.2 H Total Protein Albumin Urine Color [place] Urine Appearance Clear Urine pH 5.0 Ur Specific [place] 1.028 Urine Protein Negative Urine Glucose (UA) Negative Urine Ketones Trace H Urine Blood Negative Urine Nitrite Negative Urine Bilirubin Negative Urine Urobilinogen 4.0 e.u/dl Ur Leukocyte Esterase Negative Influenza A (Rapid) Influenza B (Rapid) RSV Rapid 07/28/18 07/29/18 07/29/18 18:10 05:15 05:15 WBC 7.7 RBC 3.88 L Hgb 12.2 Hct 35.0 L D MCV 90.3 MCH 31.6 MCHC 34.9 RDW 13.9 Plt Count 214 D MPV 10.1 Absolute Neuts (auto) 7.0 Neutrophils % 90.9 H Lymphocytes % 7.8 L D Monocytes % 1.1 L D Eosinophils % 0.0 Basophils % 0.2 Nucleated RBC % 0 PT with INR INR PTT (Actin FS) Sodium 151 H Potassium 4.3 Chloride 121 H Carbon Dioxide 25 Anion Gap 5 L BUN 15 Creatinine 0.6 Creat Clearance w eGFR > 60 Random Glucose 145 H Lactic Acid Calcium 7.9 L Magnesium 2.5 H Total Bilirubin 0.6 Direct Bilirubin GGT AST 64 H ALT 119 H Alkaline Phosphatase 162 H Creatine Kinase Creatine Kinase Index CK-MB (CK-2) Troponin I C-Reactive Protein 2.9 H Total Protein 6.6 Albumin 2.6 L Urine Color Urine Appearance Urine pH Ur Specific [place] Urine Protein Urine Glucose (UA) Urine Ketones Urine Blood Urine Nitrite Urine Bilirubin Urine Urobilinogen Ur Leukocyte Esterase Influenza A (Rapid) Negative Influenza B (Rapid) Negative RSV Rapid 07/29/18 07/29/18 07/29/18 05:15 05:15 05:15 WBC RBC Hgb Hct MCV MCH MCHC RDW Plt Count MPV Absolute Neuts (auto) Neutrophils % Lymphocytes % Monocytes % Eosinophils % Basophils % Nucleated RBC % PT with INR 15.30 H INR 1.29 H PTT (Actin FS) 28.0 Sodium Potassium Chloride Carbon Dioxide Anion Gap BUN Creatinine Creat Clearance w eGFR Random Glucose Lactic Acid Calcium Magnesium Total Bilirubin 0.6 Direct Bilirubin 0.2 GGT 111 H AST 61 H ALT 121 H Alkaline Phosphatase 159 H Creatine Kinase 352 H Creatine Kinase Index 0.7 CK-MB (CK-2) 2.6 Troponin I C-Reactive Protein Total Protein 6.5 Albumin 2.5 L Urine Color Urine Appearance Urine pH Ur Specific [place] Urine Protein Urine Glucose (UA) Urine Ketones Urine Blood Urine Nitrite Urine Bilirubin Urine Urobilinogen Ur Leukocyte Esterase Influenza A (Rapid) Influenza B (Rapid) RSV Rapid 07/29/18 08:30 WBC RBC Hgb Hct MCV MCH MCHC RDW Plt Count MPV Absolute Neuts (auto) Neutrophils % Lymphocytes % Monocytes % Eosinophils % Basophils % Nucleated RBC % PT with INR INR PTT (Actin FS) Sodium Potassium Chloride Carbon Dioxide Anion Gap BUN Creatinine Creat Clearance w eGFR Random Glucose Lactic Acid Calcium Magnesium Total Bilirubin Direct Bilirubin GGT AST ALT Alkaline Phosphatase Creatine Kinase Creatine Kinase Index CK-MB (CK-2) Troponin I C-Reactive Protein Total Protein Albumin Urine Color Urine Appearance Urine pH Ur Specific [place] Urine Protein Urine Glucose (UA) Urine Ketones Urine Blood Urine Nitrite Urine Bilirubin Urine Urobilinogen Ur Leukocyte Esterase Influenza A (Rapid) Influenza B (Rapid) RSV Rapid Negative Active Medications Generic Name Dose Route Start Last Admin Trade Name Freq PRN Reason Stop Dose Admin Acetaminophen 650 mg 07/28/18 18:15 Tylenol - PO Q4H PRN FEVER Ascorbic Acid 500 mg 07/29/18 10:00 07/29/18 10:00 Vitamin C - PO Not Given DAILY ART Aspirin 81 mg 07/29/18 10:00 07/29/18 09:59 Asa - PO Not Given DAILY ART Chlorhexidine Gluconate 1 applic 07/28/18 22:00 07/28/18 22:46 Hibiclens For Decolonization - TP 1 applic HS ART Administration Dexamethasone Sodium Phosphate 10 mg 07/28/18 21:00 07/29/18 16:11 Decadron Injection - IVPB 10 mg Q6H ART Administration Donepezil HCl 10 mg 07/29/18 22:00 Aricept - PO HS ART Ampicillin Sodium 2 gm/ Sodium 100 mls @ 200 mls/hr 07/28/18 21:00 07/29/18 16:10 Chloride IVPB 200 mls/hr Q4H ART Administration Protocol Ceftriaxone Sodium 2 gm/ 100 mls @ 100 mls/hr 07/28/18 21:00 07/29/18 09:58 Dextrose IVPB 100 mls/hr BID ART Administration Dextrose 1,000 mls @ 42 mls/hr 07/29/18 06:45 07/29/18 07:15 D5w - IV 42 mls/hr ASDIR ART Administration Folic Acid 1 mg/ Thiamine HCl 1,000 mls @ 125 mls/hr 07/29/18 12:09 07/29/18 14:08 100 mg/ Multivitamins/Minerals IVPB 07/29/18 20:08 125 mls/hr 10 ml/ Sodium Chloride ONCE ONE Administration Vancomycin HCl 1,250 mg/ 250 mls @ 250 mls/2 hr 07/30/18 10:00 Dextrose IVPB Q24H [facility] Protocol Mupirocin 1 applic 07/28/18 22:00 07/29/18 10:00 Bactroban Ointment (For Decolonization) - NS 08/02/18 21:59 Not Given BID ART Thiamine HCl 200 mg 07/30/18 10:00 Vitamin B1 Injection - IVPB DAILY ART Valproate Sodium 250 mg 07/28/18 23:30 07/29/18 10:00 Depacon Injection - IVPB 250 mg BID ART Administration Zinc Sulfate 220 mg 07/29/18 10:00 07/29/18 10:00 Orazinc - PO Not Given DAILY ART ASSESSMENT/PLAN: 62 year old male who is a resident at [facility] with history of dementia, prior alcohol abuse, CVA's, and hyperlipidemia who presented to the ER with an altered mental status, poor oral intake of oral foods and fluids. Family at bedside reported he has been on haldol and seroquel and has been more lethargic with increased muscle rigidity. He presents with a fever of 103.4. CXR and urinalysis is negative. Labs notable for WBC 11.6, normal lactic acid level, sodium 150, chloride 19, ast 91, alt 157 and creatine kinase 534 and a normal troponin. CT scan of head with moderate atrophy and no acute findings of infarct or hemorrhage. EKG showing a normal sinus rhythm with no signs of ischemia, nonspecific ST changes and no prolongation of Qtc. ER has spoke with Poison Control and was given one dosage of IV lorazepam. patient hyperthermic and getting cooling blankets the above history obtained from the charts as patients mental condition is retarded and he is non verbal currently according to the staff it seems patient was initially agitated and his haldol dose was increased before patient had come to the hospital currently patient has also started rosie cough and patient has yellowish sputum production # AMS 2/2 metabolic encephalopathy 2/2 Possible NMS vs Meningitis. Agree with current abx regimen assuming Meningitis. Pending LP if clinically amenable. Would check blood cx, sputum cx to r/o bacterimia. Trend CPK. Check rEEG. # HLD/ CVA > keep holding statin for now. DVT/GI PPX. Case d/w house staff. Visit type - Emergency Visit Emergency Visit: Yes ED Registration Date: 07/28/18 Care time: The patient presented to the Emergency Department on the above date and was hospitalized for further evaluation of their emergent condition. - New Patient This patient is new to me today: Yes Date on this admission: 07/29/18 - Critical Care Critical Care patient: Yes Total Critical Care Time (in minutes): 35 Critical Care Statement: The care of this patient involved high complexity decision making to prevent further life threatening deterioration of the patient 's condition and/or to evaluate & treat vital organ system(s) failure or risk of failure. - Discharge Referral Referred to [facility] Med [facility].C.: No
[2018-07-29] MEDS: CHLORHEXIDINE GLUCONATE 4% CLEANSER FOR DECOLONIZATION TP SCH (21:58)
[2018-07-29] MEDS: DONEPEZIL HCL 10 MG TABLET (FP) PO SCH (21:58)
[2018-07-30] MEDS: AMPICILLIN - 2 GM in SODIUM CHLORIDE 100 ML IVPB SCH ×6 (00:18→21:42)
[2018-07-30] MEDS: DEXAMETHASONE SOD PHOSPHATE 10 MG/1 ML VIAL IVPB SCH ×4 (04:00→19:46)
[2018-07-30] MEDS ORDERED: PT OWN MED DRAWER 7, Y5N ONE ×5 (04:56→16:51)
[2018-07-30 05:46] LABS: BASO % 0.2 % (0-2.0); HEMOGLOBIN 11.8 GM/dL (11.7-16.9); MCHC 31.9 g/dl (32.0-35.9); MEAN CELL VOLUME 90.9 fl (80-96); MEAN PLT VOLUME 10.1 fl (7.5-11.1); NEUT % 86.8 % (42.8-82.8); PLATELET COUNT 230 K/MM3 (134-434); RBC 4.07 M/mm3 (4.00-5.60); RDW 13.5 % (11.9-15.9); WHITE BLOOD COUNT 10.2 K/mm3 (4.0-10.0)
[2018-07-30] MEDS: DEXTROSE 5%-WATER - 1,000 ML IV SCH (07:00)
--- NOTE | 2018-07-30 07:06 | PN ---
Physical Exam: SUBJECTIVE: Patient seen and examined. Non-verbal OBJECTIVE: Vital Signs Period Temp Pulse Resp BP Sys/Cortes Pulse Ox Last 24 Hr 98.7 F-100.2 F 65-79 13-24 104-130/65-85 100-100 GENERAL: Awake, not responsive, opens eyes spontaneously HEAD: No signs of trauma, normocephalic, atraumatic EYES: pupils 2mm b/l, reactive, does not track ENT: Nares patent, oropharynx clear without exudates. Moist mucosa LUNGS: No distress, speaks full sentences, clear to auscultation bilaterally HEART: Regular rate and rhythm, normal S1 and S2, no murmurs appreciated, peripheral pulses normal and equal bilaterally ABDOMEN: Soft, non-distended, normoactive bowel sounds EXTREMITIES: Rigid extremities, does not move spontaneously, can passively range w/ moderate resistance NEUROLOGICAL: Not verbal, does not follow commands, does not withdraw to pain, rigid SKIN: Warm, Dry ASSESSMENT/PLAN: The patient is a 62M [facility] resident w/ a PMH of Alzheimer's dementia, seizure ( Depakote), EtOH abuse, Schizophrenia, BD, and anxiety disorder on seroquel and haldol (IM & PO), CVA with unknown residual sequela who was admitted to the ICU for acute on chronic AMS, hyperthermia, and possible meningitis. Neuro Altered mental status ( NMS v seizure disorder, meningitis not likely) Worsening with chronic lower extremities rigidity, AMS, high grade temp refractory to IV tylenol -Anti-psychotic medications held -s/p dantrolene x1 -EEG performed, pending read -Neurology consulted -Dexamethasone 6mg IV Q8H -Pending MRI Seizure-like vs dystonic reaction activity 07/30/2018 -Improved s/p Ativan and Benztropine x1 each w/ subsequent improvement in rigidity and tremors Hx of CVA -Aspirin 81mg PO DAILY Schizophrenia -Antipsychotics held BD Alzheimer's dementia -Valproate 250mg IV BID -Donepezil 10mg PO Qhs CV HLD -Hold home statin for transaminitis Pulm Maintaining oxygenation on 2L NC GI Transaminitis w/ unknown baseline EtOH abuse vs. drug/toxin vs. NAFLD vs. muscle injury -s/p Banana bag -Thiamine, folate, MVI Nutrition Hx of Vit B deficiency, ascorbic acid deficiency -Ascorbic Acid (Vitamin C -) 500 mg PO DAILY ART -Zinc Sulfate (Orazinc -) 220 mg PO DAILY ART -Nutrition consulted --Plan for TF if pt unable to tolerate PO IVF -D5W Heme DVT Ppx -Hep 5000u SQ Q8H ID Fever of unknown origin -Cont. D5W -Ampicillin 2g IV Q4H -Ceftriaxone 2g IV BID -Acetaminophen 650 mg PO Q4H PRN -Isolation and droplet precaution -ID consulted -Blood Cx NGTD Code status -Full code Dispo: Patient continues to require ICU level of care NOK: Patient w/ 2 sisters, no adult children Mary Kate Alejandre [phone] Visit type - Emergency Visit Emergency Visit: Yes ED Registration Date: 07/28/18 Care time: The patient presented to the Emergency Department on the above date and was hospitalized for further evaluation of their emergent condition. - New Patient This patient is new to me today: No - Critical Care Critical Care patient: Yes Total Critical Care Time (in minutes): 35 Critical Care Statement: The care of this patient involved high complexity decision making to prevent further life threatening deterioration of the patient 's condition and/or to evaluate & treat vital organ system(s) failure or risk of failure.
[2018-07-30 07:25] LABS: ALBUMIN 2.4 g/dl (3.4-5.0); ALK PHOS 127 U/L (45-117); ANION GAP 7 MMOL/L (8-16); BILIRUBIN,TOTAL 0.4 mg/dL (0.2-1); BLOOD UREA NITROGEN 18 mg/dL (7-18); CALCIUM 8.2 mg/dL (8.5-10.1); CHLORIDE 116 mmol/L (98-107); CO2 28 mmol/L (21-32); CREATININE 0.7 mg/dL (0.55-1.3); GLUCOSE,RANDOM 133 mg/dL (74-106); MAGNESIUM 2.4 mg/dL (1.8-2.4); POTASSIUM 4.1 mmol/L (3.5-5.1); SGOT/AST 26 U/L (15-37); SGPT/ALT 82 U/L (13-61); SODIUM 151 mmol/L (136-145); TOT PROT 6.3 g/dl (6.4-8.2)
[2018-07-30] MEDS ORDERED: DEXTROSE 5%-WATER 100 ML IVPB ONE ×2 (08:24→21:32)
--- NOTE | 2018-07-30 09:03 | PN ---
Physical Exam: SUBJECTIVE: Patient seen and examined in the ICU. Eyes open, in no acute distress. slight response when i asked him to squeeze my hands, but otherwise, not responding OBJECTIVE: brain mri ordered to further evaluate Vital Signs Period Temp Pulse Resp BP Sys/Cortes Pulse Ox Last 24 Hr 98.7 F-100.2 F 68-79 13-24 104-130/65-85 100-100 GENERAL: in no acute distress. min responsive to verbal and tactile stimuli HEAD: Normal with no signs of trauma. EYES: PERRL, extraocular movements intact, sclera anicteric, conjunctiva clear. No ptosis. ENT: Ears normal, nares patent, oropharynx clear without exudates, moist mucous membranes. NECK: Trachea midline, full range of motion, supple. LUNGS: Breath sounds equal, clear to auscultation anteriorly HEART: Regular rate and rhythm per nuclear monitoring technician ABDOMEN: Soft, nontender, nondistended, normoactive bowel sounds EXTREMITIES: no edema. NEUROLOGICAL: AMS, unable to respond to commands PSYCH: calm Laboratory Results - last 24 hr 07/29/18 07/30/18 07/30/18 08:30 05:15 05:15 WBC 10.2 H RBC 4.07 Hgb 11.8 Hct 37.0 MCV 90.9 MCH 29.0 MCHC 31.9 L RDW 13.5 Plt Count 230 MPV 10.1 Absolute Neuts (auto) 8.8 H Neutrophils % 86.8 H Lymphocytes % 10.0 D Monocytes % 3.0 L D Eosinophils % 0.0 Basophils % 0.2 Nucleated RBC % 0 Sodium 151 H Potassium 4.1 Chloride 116 H Carbon Dioxide 28 Anion Gap 7 L BUN 18 Creatinine 0.7 Creat Clearance w eGFR > 60 Random Glucose 133 H Calcium 8.2 L Phosphorus 4.0 Magnesium 2.4 Total Bilirubin 0.4 AST 26 ALT 82 H Alkaline Phosphatase 127 H Total Protein 6.3 L Albumin 2.4 L RSV Rapid Negative Active Medications Generic Name Dose Route Start Last Admin Trade Name Freq PRN Reason Stop Dose Admin Acetaminophen 650 mg 07/28/18 18:15 Tylenol - PO Q4H PRN FEVER Ascorbic Acid 500 mg 07/29/18 10:00 07/29/18 10:00 Vitamin C - PO Not Given DAILY ART Aspirin 81 mg 07/29/18 10:00 07/29/18 09:59 Asa - PO Not Given DAILY ART Chlorhexidine Gluconate 1 applic 07/28/18 22:00 07/29/18 21:58 Hibiclens For Decolonization - TP 1 applic HS ART Administration Dexamethasone Sodium Phosphate 10 mg 07/28/18 21:00 07/30/18 04:00 Decadron Injection - IVPB 10 mg Q6H ART Administration Donepezil HCl 10 mg 07/29/18 22:00 07/29/18 21:58 Aricept - PO Not Given HS ART Ampicillin Sodium 2 gm/ Sodium 100 mls @ 200 mls/hr 07/28/18 21:00 07/30/18 05:42 Chloride IVPB 200 mls/hr Q4H ART Administration Protocol Ceftriaxone Sodium 2 gm/ 100 mls @ 100 mls/hr 07/28/18 21:00 07/29/18 21:58 Dextrose IVPB 100 mls/hr BID ART Administration Dextrose 1,000 mls @ 42 mls/hr 07/29/18 06:45 07/29/18 07:15 D5w - IV 42 mls/hr ASDIR ART Administration Vancomycin HCl 1,250 mg/ 250 mls @ 250 mls/2 hr 07/30/18 10:00 Dextrose IVPB Q24H ART Protocol Mupirocin 1 applic 07/28/18 22:00 07/29/18 21:58 Bactroban Ointment (For Decolonization) - NS 08/02/18 21:59 1 applic BID ART Administration Thiamine HCl 200 mg 07/30/18 10:00 Vitamin B1 Injection - IVPB DAILY ART Valproate Sodium 250 mg 07/28/18 23:30 07/29/18 21:58 Depacon Injection - IVPB 250 mg BID ART Administration Zinc Sulfate 220 mg 07/29/18 10:00 07/29/18 10:00 Orazinc - PO Not Given DAILY ART ASSESSMENT/PLAN: Patient is a 62 year old male with history of dementia, prior alcohol abuse, CVA 's, and hyperlipidemia. He presented to the ED with an altered mental status, poor oral intake of oral foods and fluids. Patient was reportedly on haldol and seroquel and has been more lethargic with increased muscle rigidity. He presents with a fever of 103.4. CXR and urinalysis is negative. Labs notable for WBC 11.6, normal lactic acid level, sodium 150, chloride 19, ast 91, alt 157 and creatine kinase 534 and a normal troponin. CT scan of head with moderate atrophy and no acute findings of infarct or hemorrhage. EKG showing a normal sinus rhythm with no signs of ischemia, nonspecific ST changes and no prolongation of Qtc. Per ED notes, patient was initially agitated and his haldol dose was increased ID: Acute metabolic encephalopathy of unclear etiology Meningitis vs neuroleptic malignant syndrome On ceftriaxone, ampicillin and vancomycin Possible LP Blood cultures and sputum cultures negative Trend CPK Neuro following head ct negative. Brain mri ordered Renal Hypernatremia @ 151 On D5 @ 42cc/hr Neuro: Seizure Disorder h/o CVA Schizophrenia Alzheimer's Dementia fen on d5 @ 42 cc/hr monitor electrolytes nutrition as tolerated, if unable: start clinimax full code Visit type - Emergency Visit Emergency Visit: Yes ED Registration Date: 07/28/18 Care time: The patient presented to the Emergency Department on the above date and was hospitalized for further evaluation of their emergent condition. - New Patient This patient is new to me today: Yes Date on this admission: 07/30/18 - Critical Care Critical Care patient: Yes Total Critical Care Time (in minutes): 45 Critical Care Statement: The care of this patient involved high complexity decision making to prevent further life threatening deterioration of the patient 's condition and/or to evaluate & treat vital organ system(s) failure or risk of failure.
[2018-07-30] MEDS: ZINC SULFATE 220 MG CAPSULE (FP) PO SCH (09:04)
[2018-07-30] MEDS: ASPIRIN 81 MG CHEWABLE TABLETS PO SCH (09:04)
[2018-07-30] MEDS: ASCORBIC ACID 500 MG TABLET (FP) PO SCH (09:04)
[2018-07-30] MEDS: CEFTRIAXONE 2 GM in DEXTROSE 5%-WATER 100 ML IVPB SCH ×2 (09:20→21:45)
[2018-07-30] MEDS: VALPROATE SODIUM 500 MG/5 ML VIAL IVPB SCH ×2 (09:20→21:44)
[2018-07-30] MEDS: VANCOMYCIN 1,250 MG in DEXTROSE 5%-WATER - 250 ML IVPB SCH (09:20)
[2018-07-30] MEDS: THIAMINE HCL 200 MG/2 ML VIAL IVPB SCH (09:21)
[2018-07-30] MEDS: MUPIROCIN 2% TOPICAL OINTMENT FOR DECOLONIZATION NS SCH ×2 (09:23→21:43)
[2018-07-30] MEDS ORDERED: ACETAMINOPHEN 1000 MG/100 ML VIAL (NON FORMULARY) IVPB PRN (09:24)
[2018-07-30] MEDS ORDERED: LORazepam 2 MG/ML SDV VIAL ONE (09:50)
[2018-07-30] MEDS ORDERED: LORazepam 2 MG/ML SDV VIAL IVPUSH ONE (09:50)
[2018-07-30] MEDS ORDERED: BENZTROPINE MESYLATE 2 MG/2 ML INJECTION IM ONE (09:52)
--- NOTE | 2018-07-30 11:58 | PN ---
Teaching Attending Note Name of Resident: Boston Araujo ATTENDING PHYSICIAN STATEMENT I saw and evaluated the patient. I reviewed the resident's note and discussed the case with the resident. I agree with the resident's findings and plan as documented. SUBJECTIVE: Pt seen and examined in the ICU. Episode of shaking with ?sustained contractions. Low grade temp this AM. Given ativan, benztropine and benadryl with improvement. OBJECTIVE: Vital Signs Period Temp Pulse Resp BP Sys/Cortes Pulse Ox Last 24 Hr 99.3 F-100.2 F 65-79 13-24 104-130/65-85 100-100 Intake & Output 07/27/18 07/28/18 07/29/18 07/30/18 23:59 23:59 23:59 23:59 Intake Total 1250 1918 2134 Output Total 240 Balance 1010 1918 2134 Weight 66.8 kg 66.678 kg Gen: nonverbal, less rigid Heart: RRR Lung: decreased breath sounds at the bases Abd: soft, nontender Ext: no edema CBC, BMP 07/30/18 05:15 07/30/18 05:15 Active Medications Acetaminophen (Tylenol -) 650 mg PO Q4H PRN PRN Reason: FEVER Acetaminophen (Ofirmev Injection -) 1,000 mg IVPB Q6H PRN PRN Reason: FEVER Ascorbic Acid (Vitamin C -) 500 mg PO DAILY [facility] Last Admin: 07/30/18 09:04 Dose: Not Given Aspirin (Asa -) 81 mg PO DAILY [facility] Last Admin: 07/30/18 09:04 Dose: Not Given Chlorhexidine Gluconate (Hibiclens For Decolonization -) 1 applic TP [facility] Last Admin: 07/29/18 21:58 Dose: 1 applic Dexamethasone Sodium Phosphate (Decadron Injection -) 10 mg IVPB Q6H [facility] Last Admin: 07/30/18 09:19 Dose: 10 mg Diphenhydramine HCl (Benadryl Injection -) 50 mg IVPUSH Q6HPO [facility] Last Admin: 07/30/18 11:32 Dose: Not Given Donepezil HCl (Aricept -) 10 mg PO [facility] Last Admin: 07/29/18 21:58 Dose: Not Given Ampicillin Sodium 2 gm/ Sodium (Chloride) 100 mls @ 200 mls/hr IVPB Q4H [facility]; Protocol Last Admin: 07/30/18 09:18 Dose: 200 mls/hr Ceftriaxone Sodium 2 gm/ (Dextrose) 100 mls @ 100 mls/hr IVPB BID [facility] Last Admin: 07/30/18 09:20 Dose: 100 mls/hr Dextrose (D5w -) 1,000 mls @ 42 mls/hr IV ASDIR [facility] Last Admin: 07/30/18 07:00 Dose: 42 mls/hr Vancomycin HCl 1,250 mg/ (Dextrose) 250 mls @ 250 mls/2 hr IVPB Q24H [facility]; Protocol Last Admin: 07/30/18 09:20 Dose: 250 mls/2 hr Mupirocin (Bactroban Ointment (For Decolonization) -) 1 applic NS BID [facility] Stop: 08/02/18 21:59 Last Admin: 07/30/18 09:23 Dose: 1 applic Thiamine HCl (Vitamin B1 Injection -) 200 mg IVPB DAILY [facility] Last Admin: 07/30/18 09:21 Dose: 200 mg Valproate Sodium (Depacon Injection -) 250 mg IVPB BID [facility] Last Admin: 07/30/18 09:20 Dose: 250 mg Zinc Sulfate (Orazinc -) 220 mg PO DAILY [facility] Last Admin: 07/30/18 09:04 Dose: Not Given ASSESSMENT AND PLAN: Altered Mental Status r/o Neuroleptic Malignant Syndrome r/o Dystonic Reaction r/o Acute Meningitis although less likely r/o Seizures Seizure Disorder h/o CVA Schizophrenia Alzheimer's Dementia - continue benztropine, benadryl x 2-3 days - IVF - EEG - will defer LP as less likely infectious at this time - empiric antibiotics per ID - f/u cultures - O2 to keep SpO2 >90% - aspiration precautions - increase free water - DVT prophylaxis - continue ICU monitoring critical care time spent in reviewing chart, evaluating patient and formulating plan 35 min
[2018-07-30] MEDS: HEPARIN NA (PORCINE) 5,000 UNITS/ML 1ML VIAL SQ SCH ×2 (13:09→21:43)
--- NOTE | 2018-07-30 14:22 | PN ---
Progress Note, Physician History of Present Illness: family in room patient remaining stable no other issues fever settling down - Current Medication List Current Medications: Active Medications Acetaminophen (Tylenol -) 650 mg PO Q4H PRN PRN Reason: FEVER Acetaminophen (Ofirmev Injection -) 1,000 mg IVPB Q6H PRN PRN Reason: FEVER Ascorbic Acid (Vitamin C -) 500 mg PO DAILY [facility] Last Admin: 07/30/18 09:04 Dose: Not Given Aspirin (Asa -) 81 mg PO DAILY [facility] Last Admin: 07/30/18 09:04 Dose: Not Given Benztropine Mesylate (Cogentin Injection -) 2 mg IM BID [facility] Stop: 08/02/18 21:59 Chlorhexidine Gluconate (Hibiclens For Decolonization -) 1 applic TP HS [facility] Last Admin: 07/29/18 21:58 Dose: 1 applic Dexamethasone Sodium Phosphate (Decadron Injection -) 6 mg IVPB Q8H [facility] Last Admin: 07/30/18 13:09 Dose: 6 mg Diphenhydramine HCl (Benadryl Injection -) 50 mg IVPUSH Q6HPO [facility] Last Admin: 07/30/18 11:32 Dose: Not Given Donepezil HCl (Aricept -) 10 mg PO HS [facility] Last Admin: 07/29/18 21:58 Dose: Not Given Heparin Sodium (Porcine) (Heparin -) 5,000 unit SQ TID [facility] Last Admin: 07/30/18 13:09 Dose: 5,000 unit Ampicillin Sodium 2 gm/ Sodium (Chloride) 100 mls @ 200 mls/hr IVPB Q4H [facility]; Protocol Last Admin: 07/30/18 12:57 Dose: 200 mls/hr Ceftriaxone Sodium 2 gm/ (Dextrose) 100 mls @ 100 mls/hr IVPB BID [facility] Last Admin: 07/30/18 09:20 Dose: 100 mls/hr Dextrose (D5w -) 1,000 mls @ 42 mls/hr IV ASDIR [facility] Last Admin: 07/30/18 07:00 Dose: 42 mls/hr Vancomycin HCl 1,250 mg/ (Dextrose) 250 mls @ 250 mls/2 hr IVPB Q24H [facility]; Protocol Last Admin: 07/30/18 09:20 Dose: 250 mls/2 hr Mupirocin (Bactroban Ointment (For Decolonization) -) 1 applic NS BID [facility] Stop: 08/02/18 21:59 Last Admin: 07/30/18 09:23 Dose: 1 applic Thiamine HCl (Vitamin B1 Injection -) 200 mg IVPB DAILY [facility] Last Admin: 07/30/18 09:21 Dose: 200 mg Valproate Sodium (Depacon Injection -) 250 mg IVPB BID [facility] Last Admin: 07/30/18 09:20 Dose: 250 mg Zinc Sulfate (Orazinc -) 220 mg PO DAILY [facility] Last Admin: 07/30/18 09:04 Dose: Not Given - Objective Vital Signs: Vital Signs Temperature 98.0 F 07/30/18 14:00 Pulse Rate 53 L 07/30/18 14:00 Respiratory Rate 20 07/30/18 14:00 Blood Pressure 111/85 07/30/18 14:00 O2 Sat by Pulse Oximetry (%) 100 07/30/18 08:00 Constitutional: Yes: No Distress, Calm Cardiovascular: Yes: Regular Rate and Rhythm Respiratory: Yes: Regular, Poor Air Entry Gastrointestinal: Yes: Normal Bowel Sounds, Soft Musculoskeletal: Yes: WNL Extremities: Yes: Other Neurological: Yes: Lethargy, Other Psychiatric: Yes: Other Labs: CBC, BMP 07/30/18 05:15 07/30/18 05:15 INR, PTT INR 1.29 (0.83-1.09) H 07/29/18 05:15 - ....Imaging Chest X-ray: Report Reviewed, Image Reviewed Assessment/Plan after looking at the history and to see how the patient came with along with infection i am worried that the symptoms could be due to drugs which patient was been given for agitation also now patient is coughing and producing sputum Altered Mental Status r/o Neuroleptic Malignant Syndrome r/o Seizures Seizure Disorder h/o CVA Schizophrenia Alzheimer's Dementia drug reaction plan can stop vanco and ceftriaxone continue amp nutrition rest as per icu close watch cc 40 min
--- NOTE | 2018-07-30 18:08 | PN ---
Progress Note (short form) - Note Progress Note: 62 year old male history of Dementia, alcohol abuse, storke, HLD . Patient was in prison and was brought to hospital as he was having mental status detioration. Compa has ct head showed cortical atrophy and found to have high grade fever and suspected to have NMS and dantrolene was given Patient was given medication for menigitis and no psinal tap was done. His wbc is coming dwon and has been febrile. Spoke to Sister at bedside, and he has been non verbal for a long time. After benztropine , his rigidity has improved. There is no high grade fever NEUROLOGICAL EXAMINATION VSS and febrile Paitient is not responding to verbal stimuli, winces to pain There is rigidity in upper and lower extrmeity, appears to be less rigid then yesterday. pupils reactive mild terminal neck stiffness( part of generalized rigidity) Assessment/Plan 62 year old male history of alcohol abuse, dementia with behavior disturbance on two antipsychotic medicaitons ( haldol and seroquel) in [place]. He has history of seizure disorder and schizophrenia. He is brought with high fever, rigidity , slightly high cpk and AMS. Suspected to have NMS and Possible Meningitis . My impression is Possible NMS ( Neuroleptic Malignant syndrome) vs Meningitis ( Less Likely) Plan: hold antipsychotic Medicaitons, iv fluid and supportive care and continue benztropine and benadryl - may add folic acid, thiamine and mvi -would follow up on EEG - MRI of brain can be obtained once stable Thanking you so much Junior [facility] MD
[2018-07-30] MEDS: DONEPEZIL HCL 10 MG TABLET (FP) PO SCH (21:28)
[2018-07-30] MEDS: CHLORHEXIDINE GLUCONATE 4% CLEANSER FOR DECOLONIZATION TP SCH (21:43)
[2018-07-30] MEDS: BENZTROPINE MESYLATE 2 MG/2 ML INJECTION IM SCH (21:44)
[2018-07-31] MEDS: AMPICILLIN - 2 GM in SODIUM CHLORIDE 100 ML IVPB SCH ×6 (00:17→20:49)
[2018-07-31] MEDS ORDERED: PT OWN MED DRAWER 7, Y5N ONE ×5 (00:22→21:33)
[2018-07-31] MEDS: DEXAMETHASONE SOD PHOSPHATE 10 MG/1 ML VIAL IVPB SCH ×3 (04:39→20:49)
[2018-07-31 06:25] LABS: BASO % 0.1 % (0-2.0); LYMPH % 12.7 % (8-40); MCH 29.4 pg (25.7-33.7); MCHC 32.4 g/dl (32.0-35.9); MEAN CELL VOLUME 90.8 fl (80-96); MEAN PLT VOLUME 10.6 fl (7.5-11.1); MONO % 6.5 % (3.8-10.2); NEUT % 80.7 % (42.8-82.8); PLATELET COUNT 173 K/MM3 (134-434); RBC 3.75 M/mm3 (4.00-5.60); RDW 13.4 % (11.9-15.9); WHITE BLOOD COUNT 7.2 K/mm3 (4.0-10.0)
[2018-07-31] MEDS: HEPARIN NA (PORCINE) 5,000 UNITS/ML 1ML VIAL SQ SCH ×3 (06:25→22:01)
[2018-07-31] MEDS: DEXTROSE 5%-WATER - 1,000 ML IV SCH (07:00)
[2018-07-31 07:21] LABS: ALBUMIN 2.2 g/dl (3.4-5.0); ALK PHOS 100 U/L (45-117); ANION GAP 9 MMOL/L (8-16); BILIRUBIN,TOTAL 0.3 mg/dL (0.2-1); BLOOD UREA NITROGEN 16 mg/dL (7-18); CHLORIDE 113 mmol/L (98-107); CO2 26 mmol/L (21-32); CREATININE 0.6 mg/dL (0.55-1.3); GLUCOSE,RANDOM 132 mg/dL (74-106); MAGNESIUM 2.4 mg/dL (1.8-2.4); PHOSPHOROUS 2.8 mg/dL (2.5-4.9); POTASSIUM 3.6 mmol/L (3.5-5.1); SGOT/AST 16 U/L (15-37); SGPT/ALT 57 U/L (13-61); SODIUM 148 mmol/L (136-145); TOT PROT 5.6 g/dl (6.4-8.2)
--- NOTE | 2018-07-31 09:05 | PN ---
Physical Exam: SUBJECTIVE: Patient seen and examined at bed side , o acute events over night , no seizure activity , had some rigidity responds to painful stimuli , non verbal , had some spontaneous swallowing movement and eyelid grimacing. OBJECTIVE: Vital Signs Period Temp Pulse Resp BP Sys/Cortes Pulse Ox Last 24 Hr 96 F-100.2 F 45-65 10-23 96-114/65-85 98 GENERAL: non verbal , responds to painful stimuli HEAD: NC/AT EYES: PERRL, sclera anicteric, ENT:dry mucous membranes. NECK: some rigidity with movement but better than day 1 LUNGS: CTA B/L HEART: sinus wanda , S1, S2 without murmur, rub or gallop. ABDOMEN: Soft, nontender, nondistended, normoactive bowel sounds,no guarding EXTREMITIES: 2+ pulses, warm, well-perfused, no edema. little rigidity withpassive movement , babinski upward NEUROLOGICAL:no focal deficit other vigil not able to assess , gait not observed. SKIN: Warm, dry, Laboratory Results - last 24 hr 07/31/18 07/31/18 05:30 05:30 WBC 7.2 RBC 3.75 L Hgb 11.0 L Hct 34.0 L MCV 90.8 MCH 29.4 MCHC 32.4 RDW 13.4 Plt Count 173 D MPV 10.6 Absolute Neuts (auto) 5.8 Neutrophils % 80.7 Lymphocytes % 12.7 D Monocytes % 6.5 D Eosinophils % 0.0 Basophils % 0.1 Nucleated RBC % 0 Sodium 148 H Potassium 3.6 Chloride 113 H Carbon Dioxide 26 Anion Gap 9 BUN 16 Creatinine 0.6 Creat Clearance w eGFR > 60 Random Glucose 132 H Calcium 8.0 L Phosphorus 2.8 Magnesium 2.4 Total Bilirubin 0.3 AST 16 ALT 57 Alkaline Phosphatase 100 Total Protein 5.6 L Albumin 2.2 L Active Medications Generic Name Dose Route Start Last Admin Trade Name Freq PRN Reason Stop Dose Admin Acetaminophen 650 mg 07/28/18 18:15 Tylenol - PO Q4H PRN FEVER Acetaminophen 1,000 mg 07/30/18 09:24 Ofirmev Injection - IVPB Q6H PRN FEVER Ascorbic Acid 500 mg 07/29/18 10:00 07/30/18 09:04 Vitamin C - PO Not Given DAILY [facility] Aspirin 81 mg 07/29/18 10:00 07/30/18 09:04 Asa - PO Not Given DAILY [facility] Benztropine Mesylate 2 mg 07/30/18 22:00 07/30/18 21:44 Cogentin Injection - IM 08/02/18 21:59 2 mg BID [facility] Administration Chlorhexidine Gluconate 1 applic 07/28/18 22:00 07/30/18 21:43 Hibiclens For Decolonization - TP 1 applic HS [facility] Administration Dexamethasone Sodium Phosphate 6 mg 07/30/18 12:15 07/31/18 04:39 Decadron Injection - IVPB 6 mg Q8H [facility] Administration Diphenhydramine HCl 50 mg 07/30/18 10:45 07/31/18 06:24 Benadryl Injection - IVPUSH 50 mg Q6HPO [facility] Administration Donepezil HCl 10 mg 07/29/18 22:00 07/30/18 21:28 Aricept - PO Not Given HS [facility] Heparin Sodium (Porcine) 5,000 unit 07/30/18 14:00 07/31/18 06:25 Heparin - SQ 5,000 unit TID [facility] Administration Ampicillin Sodium 2 gm/ Sodium 100 mls @ 200 mls/hr 07/28/18 21:00 07/31/18 04:39 Chloride IVPB 200 mls/hr Q4H [facility] Administration Protocol Ceftriaxone Sodium 2 gm/ 100 mls @ 100 mls/hr 07/28/18 21:00 07/30/18 21:45 Dextrose IVPB 100 mls/hr BID [facility] Administration Dextrose 1,000 mls @ 42 mls/hr 07/29/18 06:45 07/30/18 07:00 D5w - IV 42 mls/hr ASDIR [facility] Administration Vancomycin HCl 1,250 mg/ 250 mls @ 250 mls/2 hr 07/30/18 10:00 07/30/18 09:20 Dextrose IVPB 250 mls/2 hr Q24H [facility] Administration Protocol Mupirocin 1 applic 07/28/18 22:00 07/30/18 21:43 Bactroban Ointment (For Decolonization) - NS 08/02/18 21:59 1 applic BID [facility] Administration Thiamine HCl 200 mg 07/30/18 10:00 07/30/18 09:21 Vitamin B1 Injection - IVPB 200 mg DAILY [facility] Administration Valproate Sodium 250 mg 07/28/18 23:30 07/30/18 21:44 Depacon Injection - IVPB 250 mg BID [facility] Administration Zinc Sulfate 220 mg 07/29/18 10:00 07/30/18 09:04 Orazinc - PO Not Given DAILY [facility] CBC, BMP 07/31/18 05:30 07/31/18 05:30 ASSESSMENT/PLAN: The patient is a 62M [facility] resident w/ a PMH of Alzheimer's dementia, seizure ( Depakote), EtOH abuse, Schizophrenia, BD, and anxiety disorder on seroquel and haldol (IM & PO), CVA with unknown residual sequela who was admitted to the ICU for acute on chronic AMS, hyperthermia, and possible meningitis. #Neuro -Acute metabolic encephalopathy , Altered mental status ( NMS,vs dystonia less likely meningitis or seizure disorder ) * Hold Haloperidol and seraquel * given dantrolene NA x1 * deffer LP for now * EEG pending reading * MRI pending reading * Neurology consulted * cont Benadryl, Benztropin schedulled and Ativan PRN * pt is less regid today compare to day of admission -Hx of CVA * cont Aspirin 81mg PO DAILY -Schizophrenia * Antipsychotics held BD -Alzheimer's dementia * resume Valproate 250mg IV BID * resume Donepezil 10mg PO Qhs #CV -HLD * cont home statin #Pulm * Maintaining oxygenation on 2L NC #GI -Transaminitis w/ unknown baseline * EtOH abuse vs. drug/toxin vs. NAFLD vs. muscle injury * Banana bag * Thiamine, folate, MVI -Nutrition * Hx of Vit B deficiency, ascorbic acid deficiency * Ascorbic Acid (Vitamin C -) 500 mg PO DAILY [facility] * Zinc Sulfate (Orazinc -) 220 mg PO DAILY [facility] * Nutrition consulted will start NGT with enteral feed of Vitals 1.2 @ rate of 20 with goal of 40 for first 24 hours and free water 30 # * IVFD5W @ 42 CC * Enetral feed and free water #Heme * DVT Ppx Hep 5000u SQ Q8H to start s/p LP * GI protonix #ID -Fever of unknown origin, resolved * Cont. D5W * C/W Ampicillin 2g IV Q4H * cont Ceftriaxone 2g IV BID * Acetaminophen 650 mg PO Q4H PRN * DC Isolation * ID consulted Dr Reddy #Code status -Full code Dispo: monitor on regular floor Victor M Moore PGY 2 Visit type - Emergency Visit Emergency Visit: Yes ED Registration Date: 07/28/18 Care time: The patient presented to the Emergency Department on the above date and was hospitalized for further evaluation of their emergent condition. - New Patient This patient is new to me today: No - Critical Care Critical Care patient: Yes Total Critical Care Time (in minutes): 45 Critical Care Statement: The care of this patient involved high complexity decision making to prevent further life threatening deterioration of the patient 's condition and/or to evaluate & treat vital organ system(s) failure or risk of failure.
[2018-07-31] MEDS ORDERED: DEXTROSE 5%-WATER 100 ML IVPB ONE (09:20)
[2018-07-31] MEDS: ASPIRIN 81 MG CHEWABLE TABLETS PO SCH (09:23)
[2018-07-31] MEDS: ASCORBIC ACID 500 MG TABLET (FP) PO SCH (09:23)
[2018-07-31] MEDS: ZINC SULFATE 220 MG CAPSULE (FP) PO SCH (09:23)
[2018-07-31] MEDS: VANCOMYCIN 1,250 MG in DEXTROSE 5%-WATER - 250 ML IVPB SCH (09:25)
[2018-07-31] MEDS: CEFTRIAXONE 2 GM in DEXTROSE 5%-WATER 100 ML IVPB SCH (09:25)
[2018-07-31] MEDS: VALPROATE SODIUM 500 MG/5 ML VIAL IVPB SCH ×2 (09:25→21:58)
[2018-07-31] MEDS: BENZTROPINE MESYLATE 2 MG/2 ML INJECTION IM SCH ×2 (09:26→22:06)
[2018-07-31] MEDS: MUPIROCIN 2% TOPICAL OINTMENT FOR DECOLONIZATION NS SCH ×2 (09:26→22:06)
[2018-07-31] MEDS: THIAMINE HCL 200 MG/2 ML VIAL IVPB SCH (09:27)
[2018-07-31] MEDS ORDERED: LORazepam 2 MG/ML SDV VIAL IVPUSH ONE (11:24)
--- NOTE | 2018-07-31 12:27 | PN ---
Teaching Attending Note Name of Resident: Victor M Moore ATTENDING PHYSICIAN STATEMENT I saw and evaluated the patient. I reviewed the resident's note and discussed the case with the resident. I agree with the resident's findings and plan as documented. SUBJECTIVE: Pt seen and examined in the ICU. Still some rigidity. Pt nonverbal. No further fevers recorded. OBJECTIVE: Vital Signs Period Temp Pulse Resp BP Sys/Cortes Pulse Ox Last 24 Hr 96 F-98.8 F 45-53 10-20 96-119/66-85 96-98 Intake & Output 07/28/18 07/29/18 07/30/18 07/31/18 23:59 23:59 23:59 23:59 Intake Total 1250 1918 3258 220 Output Total 240 Balance 1010 1918 3258 220 Weight 66.8 kg 66.678 kg 69.536 kg Gen: nonverbal, NAD, rigid Heart: RRR Lung: decreased breath sounds at the bases Abd: soft, nontender Ext: no edema CBC, BMP 07/31/18 05:30 07/31/18 05:30 Active Medications Acetaminophen (Tylenol -) 650 mg PO Q4H PRN PRN Reason: FEVER Acetaminophen (Ofirmev Injection -) 1,000 mg IVPB Q6H PRN PRN Reason: FEVER Ascorbic Acid (Vitamin C -) 500 mg PO DAILY [facility] Last Admin: 07/31/18 09:23 Dose: Not Given Aspirin (Asa -) 81 mg PO DAILY [facility] Last Admin: 07/31/18 09:23 Dose: Not Given Benztropine Mesylate (Cogentin Injection -) 2 mg IM BID [facility] Stop: 08/02/18 21:59 Last Admin: 07/31/18 09:26 Dose: 2 mg Chlorhexidine Gluconate (Hibiclens For Decolonization -) 1 applic TP [facility] Last Admin: 07/30/18 21:43 Dose: 1 applic Dexamethasone Sodium Phosphate (Decadron Injection -) 6 mg IVPB Q8H [facility] Last Admin: 07/31/18 04:39 Dose: 6 mg Diphenhydramine HCl (Benadryl Injection -) 50 mg IVPUSH Q6HPO [facility] Last Admin: 07/31/18 06:24 Dose: 50 mg Donepezil HCl (Aricept -) 10 mg PO [facility] Last Admin: 07/30/18 21:28 Dose: Not Given Heparin Sodium (Porcine) (Heparin -) 5,000 unit SQ TID [facility] Last Admin: 07/31/18 06:25 Dose: 5,000 unit Ampicillin Sodium 2 gm/ Sodium (Chloride) 100 mls @ 200 mls/hr IVPB Q4H [facility]; Protocol Last Admin: 07/31/18 09:24 Dose: 200 mls/hr Ceftriaxone Sodium 2 gm/ (Dextrose) 100 mls @ 100 mls/hr IVPB BID [facility] Last Admin: 07/31/18 09:25 Dose: 100 mls/hr Dextrose (D5w -) 1,000 mls @ 42 mls/hr IV ASDIR [facility] Last Admin: 07/31/18 07:00 Dose: 42 mls/hr Vancomycin HCl 1,250 mg/ (Dextrose) 250 mls @ 250 mls/2 hr IVPB Q24H [facility]; Protocol Last Admin: 07/31/18 09:25 Dose: 250 mls/2 hr Mupirocin (Bactroban Ointment (For Decolonization) -) 1 applic NS BID [facility] Stop: 08/02/18 21:59 Last Admin: 07/31/18 09:26 Dose: 1 applic Thiamine HCl (Vitamin B1 Injection -) 200 mg IVPB DAILY [facility] Last Admin: 07/31/18 09:27 Dose: 200 mg Valproate Sodium (Depacon Injection -) 250 mg IVPB BID [facility] Last Admin: 07/31/18 09:25 Dose: 250 mg Zinc Sulfate (Orazinc -) 220 mg PO DAILY [facility] Last Admin: 07/31/18 09:23 Dose: Not Given ASSESSMENT AND PLAN: Altered Mental Status r/o Neuroleptic Malignant Syndrome r/o Dystonic Reaction r/o Acute Meningitis although less likely r/o Seizures Seizure Disorder h/o CVA Schizophrenia Alzheimer's Dementia - continue benztropine, benadryl x 2-3 days - will defer LP as less likely infectious at this time - empiric antibiotics per ID - f/u cultures - O2 to keep SpO2 >90% - aspiration precautions - place NGT and start enteral feeds - enteral free water - DVT prophylaxis - can monitor on floor
[2018-07-31] MEDS ORDERED: FOLIC ACID INJECTION - 1 MG, THIAMINE HCL 100 MG, MULTIVIT INJECTION ADULT 10 ML in SOD... IVPB ONE (14:26)
--- NOTE | 2018-07-31 14:40 | PN ---
Progress Note, Physician - Current Medication List Current Medications: Active Medications Acetaminophen (Tylenol -) 650 mg PO Q4H PRN PRN Reason: FEVER Acetaminophen (Ofirmev Injection -) 1,000 mg IVPB Q6H PRN PRN Reason: FEVER Ascorbic Acid (Vitamin C -) 500 mg PO DAILY [facility] Last Admin: 07/31/18 09:23 Dose: Not Given Aspirin (Asa -) 81 mg PO DAILY [facility] Last Admin: 07/31/18 09:23 Dose: Not Given Benztropine Mesylate (Cogentin Injection -) 2 mg IM BID [facility] Stop: 08/02/18 21:59 Last Admin: 07/31/18 09:26 Dose: 2 mg Chlorhexidine Gluconate (Hibiclens For Decolonization -) 1 applic TP HS [facility] Last Admin: 07/30/18 21:43 Dose: 1 applic Dexamethasone Sodium Phosphate (Decadron Injection -) 6 mg IVPB Q8H [facility] Last Admin: 07/31/18 12:31 Dose: 6 mg Diphenhydramine HCl (Benadryl Injection -) 50 mg IVPUSH Q6HPO [facility] Last Admin: 07/31/18 12:32 Dose: 50 mg Donepezil HCl (Aricept -) 10 mg PO HS [facility] Last Admin: 07/30/18 21:28 Dose: Not Given Heparin Sodium (Porcine) (Heparin -) 5,000 unit SQ TID [facility] Last Admin: 07/31/18 13:00 Dose: 5,000 unit Ampicillin Sodium 2 gm/ Sodium (Chloride) 100 mls @ 200 mls/hr IVPB Q4H [facility]; Protocol Last Admin: 07/31/18 12:36 Dose: 200 mls/hr Dextrose (D5w -) 1,000 mls @ 42 mls/hr IV ASDIR [facility] Last Admin: 07/31/18 07:00 Dose: 42 mls/hr Folic Acid 1 mg/ Thiamine HCl 100 mg/ Multivitamins/Minerals 10 ml/ Sodium Chloride 1,000 mls @ 125 mls/hr IVPB ONCE ONE Stop: 07/31/18 22:25 Mupirocin (Bactroban Ointment (For Decolonization) -) 1 applic NS BID [facility] Stop: 08/02/18 21:59 Last Admin: 07/31/18 09:26 Dose: 1 applic Thiamine HCl (Vitamin B1 Injection -) 200 mg IVPB DAILY [facility] Last Admin: 07/31/18 09:27 Dose: 200 mg Valproate Sodium (Depacon Injection -) 250 mg IVPB BID [facility] Last Admin: 07/31/18 09:25 Dose: 250 mg Zinc Sulfate (Orazinc -) 220 mg PO DAILY [facility] Last Admin: 07/31/18 09:23 Dose: Not Given - Objective Vital Signs: Vital Signs Temperature 99.8 F H 07/31/18 14:00 Pulse Rate 46 L 07/31/18 14:00 Respiratory Rate 18 07/31/18 14:00 Blood Pressure 117/76 07/31/18 14:00 O2 Sat by Pulse Oximetry (%) 96 07/31/18 08:00 Constitutional: Yes: No Distress, Calm Cardiovascular: Yes: Regular Rate and Rhythm Respiratory: Yes: Regular, Rhonchi Gastrointestinal: Yes: Normal Bowel Sounds, Soft, Other (ng tube in place) Musculoskeletal: Yes: WNL Extremities: Yes: Other Neurological: Yes: Alert, Other Labs: CBC, BMP 07/31/18 05:30 07/31/18 05:30 INR, PTT INR 1.29 (0.83-1.09) H 07/29/18 05:15 Assessment/Plan after looking at the history and to see how the patient came with along with infection i am worried that the symptoms could be due to drugs which patient was been given for agitation also now patient is coughing and producing sputum Altered Mental Status r/o Neuroleptic Malignant Syndrome r/o Seizures Seizure Disorder h/o CVA Schizophrenia Alzheimer's Dementia drug reaction plan can stop vanco and ceftriaxone continue amp nutrition patient improving will deescale all abx
--- NOTE | 2018-07-31 18:10 | PN ---
Physical Exam: SUBJECTIVE: Patient seen and examined at the bedside. discussed poc with sister who wishes patient not to return to same nursing facility. SW aware and provided her with a list of other facilities. per sister, patient can speak a few words and make his needs known. OBJECTIVE: ngt for tube feeds Vital Signs Period Temp Pulse Resp BP Sys/Cortes Pulse Ox Last 24 Hr 96 F-99.8 F 45-53 10-20 103-119/66-84 96-98 GENERAL: in no acute distress. min responsive to verbal and tactile stimuli HEAD: Normal with no signs of trauma. EYES: PERRL, extraocular movements intact, sclera anicteric, conjunctiva clear. No ptosis. ENT: Ears normal, nares patent, oropharynx clear without exudates, moist mucous membranes. NECK: Trachea midline, full range of motion, supple. LUNGS: Breath sounds equal, clear to auscultation anteriorly HEART: Regular rate and rhythm per personnel monitor ABDOMEN: Soft, nontender, nondistended, normoactive bowel sounds EXTREMITIES: no edema. NEUROLOGICAL: AMS, unable to respond to commands Laboratory Results - last 24 hr 07/31/18 07/31/18 05:30 05:30 WBC 7.2 RBC 3.75 L Hgb 11.0 L Hct 34.0 L MCV 90.8 MCH 29.4 MCHC 32.4 RDW 13.4 Plt Count 173 D MPV 10.6 Absolute Neuts (auto) 5.8 Neutrophils % 80.7 Lymphocytes % 12.7 D Monocytes % 6.5 D Eosinophils % 0.0 Basophils % 0.1 Nucleated RBC % 0 Sodium 148 H Potassium 3.6 Chloride 113 H Carbon Dioxide 26 Anion Gap 9 BUN 16 Creatinine 0.6 Creat Clearance w eGFR > 60 Random Glucose 132 H Calcium 8.0 L Phosphorus 2.8 Magnesium 2.4 Total Bilirubin 0.3 AST 16 ALT 57 Alkaline Phosphatase 100 Creatine Kinase 70 Total Protein 5.6 L Albumin 2.2 L Active Medications Generic Name Dose Route Start Last Admin Trade Name Freq PRN Reason Stop Dose Admin Acetaminophen 650 mg 07/28/18 18:15 Tylenol - PO Q4H PRN FEVER Acetaminophen 1,000 mg 07/30/18 09:24 Ofirmev Injection - IVPB Q6H PRN FEVER Ascorbic Acid 500 mg 07/29/18 10:00 07/31/18 09:23 Vitamin C - PO Not Given DAILY [facility] Aspirin 81 mg 07/29/18 10:00 07/31/18 09:23 Asa - PO Not Given DAILY [facility] Benztropine Mesylate 2 mg 07/30/18 22:00 07/31/18 09:26 Cogentin Injection - IM 08/02/18 21:59 2 mg BID [facility] Administration Chlorhexidine Gluconate 1 applic 07/28/18 22:00 07/30/18 21:43 Hibiclens For Decolonization - TP 1 applic HS [facility] Administration Dexamethasone Sodium Phosphate 6 mg 07/30/18 12:15 07/31/18 12:31 Decadron Injection - IVPB 6 mg Q8H [facility] Administration Diphenhydramine HCl 50 mg 07/30/18 10:45 07/31/18 17:10 Benadryl Injection - IVPUSH 50 mg Q6HPO [facility] Administration Donepezil HCl 10 mg 07/29/18 22:00 07/30/18 21:28 Aricept - PO Not Given HS [facility] Heparin Sodium (Porcine) 5,000 unit 07/30/18 14:00 07/31/18 13:00 Heparin - SQ 5,000 unit TID [facility] Administration Ampicillin Sodium 2 gm/ Sodium 100 mls @ 200 mls/hr 07/28/18 21:00 07/31/18 16:43 Chloride IVPB 200 mls/hr Q4H [facility] Administration Protocol Dextrose 1,000 mls @ 42 mls/hr 07/29/18 06:45 07/31/18 07:00 D5w - IV 42 mls/hr ASDIR ART Administration Folic Acid 1 mg/ Thiamine HCl 1,000 mls @ 125 mls/hr 07/31/18 14:26 07/31/18 16:42 100 mg/ Multivitamins/Minerals IVPB 07/31/18 22:25 125 mls/hr 10 ml/ Sodium Chloride ONCE ONE Administration Mupirocin 1 applic 07/28/18 22:00 07/31/18 09:26 Bactroban Ointment (For Decolonization) - NS 08/02/18 21:59 1 applic BID [facility] Administration Thiamine HCl 200 mg 07/30/18 10:00 07/31/18 09:27 Vitamin B1 Injection - IVPB 200 mg DAILY [facility] Administration Valproate Sodium 250 mg 07/28/18 23:30 07/31/18 09:25 Depacon Injection - IVPB 250 mg BID [facility] Administration Zinc Sulfate 220 mg 07/29/18 10:00 07/31/18 09:23 Orazinc - PO Not Given DAILY [facility] ASSESSMENT/PLAN: Patient is a 62 year old male with history of dementia, prior alcohol abuse, CVA 's, and hyperlipidemia. He presented to the ED with an altered mental status, poor oral intake of oral foods and fluids. Patient was reportedly on haldol and seroquel and has been more lethargic with increased muscle rigidity. He presents with a fever of 103.4. Labs notable for WBC 11.6, normal lactic acid level, sodium 150, chloride 19, ast 91, alt 157 and creatine kinase 534 and a normal troponin. CT scan of head with moderate atrophy and no acute findings of infarct or hemorrhage. EKG showing a normal sinus rhythm with no signs of ischemia, nonspecific ST changes and no prolongation of Qtc. Per ED notes, patient was initially agitated and his haldol dose was increased at nursing facility. ID: Acute metabolic encephalopathy of unclear etiology Meningitis vs neuroleptic malignant syndrome On ceftriaxone, ampicillin and vancomycin Possible LP Blood cultures and sputum cultures negative Trend CPK Neuro following head ct negative. Brain mri reviewed, no acute findings Renal Hypernatremia, improving On D5 @ 42cc/hr Neuro: Seizure Disorder h/o CVA Schizophrenia Alzheimer's Dementia Unable to assess neuro status in the setting of acute metabolic enceph. fen on d5 @ 42 cc/hr monitor electrolytes nutrition as tolerated, if unable: start clinimax full code Visit type - Emergency Visit Emergency Visit: Yes ED Registration Date: 07/28/18 Care time: The patient presented to the Emergency Department on the above date and was hospitalized for further evaluation of their emergent condition. - New Patient This patient is new to me today: No - Critical Care Critical Care patient: Yes Total Critical Care Time (in minutes): 60 Critical Care Statement: The care of this patient involved high complexity decision making to prevent further life threatening deterioration of the patient 's condition and/or to evaluate & treat vital organ system(s) failure or risk of failure.
[2018-07-31] MEDS: DONEPEZIL HCL 10 MG TABLET (FP) PO SCH (22:06)
[2018-07-31] MEDS: CHLORHEXIDINE GLUCONATE 4% CLEANSER FOR DECOLONIZATION TP SCH (22:06)
[2018-08-01] MEDS: AMPICILLIN - 2 GM in SODIUM CHLORIDE 100 ML IVPB SCH ×6 (00:34→21:47)
[2018-08-01] MEDS ORDERED: ACETAMINOPHEN 325 MG TABLET (FP) PO PRN (01:53)
[2018-08-01] MEDS: DEXAMETHASONE SOD PHOSPHATE 4 MG/1 ML VIAL IVPB SCH ×3 (03:47→21:51)
[2018-08-01] MEDS: DEXTROSE 5%-WATER - 1,000 ML IV SCH (04:42)
[2018-08-01] MEDS: HEPARIN NA (PORCINE) 5,000 UNITS/ML 1ML VIAL SQ SCH ×3 (05:49→21:50)
[2018-08-01 07:05] LABS: BASO % 0.3 % (0-2.0); HEMATOCRIT 38.4 % (35.4-49); HEMOGLOBIN 12.4 GM/dL (11.7-16.9); LYMPH % 4.7 % (8-40); MCHC 32.2 g/dl (32.0-35.9); MEAN PLT VOLUME 10.5 fl (7.5-11.1); MONO % 5.3 % (3.8-10.2); NEUT % 89.7 % (42.8-82.8); PLATELET COUNT 186 K/MM3 (134-434); RBC 4.27 M/mm3 (4.00-5.60); RDW 13.8 % (11.9-15.9); WHITE BLOOD COUNT 9.5 K/mm3 (4.0-10.0)
[2018-08-01 08:39] LABS: ALBUMIN 2.6 g/dl (3.4-5.0); ALK PHOS 109 U/L (45-117); ANION GAP 6 MMOL/L (8-16); BILIRUBIN,TOTAL 0.6 mg/dL (0.2-1); BLOOD UREA NITROGEN 13 mg/dL (7-18); CALCIUM 8.2 mg/dL (8.5-10.1); CHLORIDE 109 mmol/L (98-107); CO2 27 mmol/L (21-32); CREATININE 0.7 mg/dL (0.55-1.3); GLUCOSE,RANDOM 128 mg/dL (74-106); MAGNESIUM 2.3 mg/dL (1.8-2.4); PHOSPHOROUS 2.5 mg/dL (2.5-4.9); POTASSIUM 3.3 mmol/L (3.5-5.1); SGOT/AST 65 U/L (15-37); SGPT/ALT 83 U/L (13-61); SODIUM 142 mmol/L (136-145); TOT PROT 6.1 g/dl (6.4-8.2)
[2018-08-01] MEDS ORDERED: MUPIROCIN 2% TOPICAL OINTMENT FOR DECOLONIZATION NS SCH (10:00)
[2018-08-01] MEDS: ASPIRIN 81 MG CHEWABLE TABLETS PO SCH (10:29)
[2018-08-01] MEDS: ASCORBIC ACID 500 MG TABLET (FP) PO SCH (10:29)
[2018-08-01] MEDS: ZINC SULFATE 220 MG CAPSULE (FP) PO SCH (10:30)
[2018-08-01] MEDS: VALPROATE SODIUM 500 MG/5 ML VIAL IVPB SCH ×2 (10:31→21:48)
[2018-08-01] MEDS: BENZTROPINE MESYLATE 2 MG/2 ML INJECTION IM SCH ×2 (10:34→21:48)
--- NOTE | 2018-08-01 11:14 | PN ---
Progress Note (short form) - Note Progress Note: 62 year old male history of Dementia, alcohol abuse, storke, HLD . Patient was in long-term and was brought to hospital as he was having mental status detioration. Compa has ct head showed cortical atrophy and found to have high grade fever and suspected to have NMS and dantrolene was given Patient was given medication for menigitis and no psinal tap was done. His wbc is coming dwon and has been febrile. S There is no high grade fever now EEG reviewed there no epileptic seizure, there is muscle artifact vs sharp waves , suggest to rpeat Patient is trying to talk and has ng tube in place NEUROLOGICAL EXAMINATION VSS and febrile Paitient is not responding to verbal stimuli, winces to pain There is rigidity in upper and lower extrmeity, appears to be less rigid than admission pupils reactive mild terminal neck stiffness( part of generalized rigidity) mri of brain is normal eeg reviewed : generalized encephalopathy and muscle artifacts vs sharp wave, sugges to repeat Assessment/Plan 62 year old male history of alcohol abuse, dementia with behavior disturbance on two antipsychotic medicaitons ( haldol and seroquel) in [place]. He has history of seizure disorder and schizophrenia. He is brought with high fever, rigidity , slightly high cpk and AMS. Suspected to have NMS less likey to be meningitis clinically has improved. EEG showed multiple muslce artifacts, and ? sharp wave, but no epileptic seizure or status epilepticus . There is evidence of encephalopathy Suggest to repeat eeg continue supportive care Thanking you so much Toni Heart MD
--- NOTE | 2018-08-01 11:37 | PN ---
Physical Exam: SUBJECTIVE: Patient seen and examined at the bedside. more awake and alert. sister present. OBJECTIVE: patient more awake and alert, but not at his baseline per sister mittens applied so that patient does not pull at his feeding tube or IVF, he had attempted earlier. Vital Signs Period Temp Pulse Resp BP Sys/Cortes Pulse Ox Last 24 Hr 97.7 F-99.8 F 46-69 17-22 113-148/68-97 98 GENERAL: in no acute distress. eyes open, more awake, recognized his sister. HEAD: Normal with no signs of trauma. EYES: PERRL, extraocular movements intact, sclera anicteric, conjunctiva clear. No ptosis. ENT: Ears normal, nares patent, oropharynx clear without exudates, moist mucous membranes. NECK: Trachea midline, full range of motion, supple. LUNGS: Breath sounds equal, clear to auscultation anteriorly HEART: Regular rate and rhythm ABDOMEN: Soft, nontender, nondistended, normoactive bowel sounds EXTREMITIES: no edema. NEUROLOGICAL: lethargic, but overall more improved. Laboratory Results - last 24 hr 07/31/18 08/01/18 08/01/18 05:30 06:30 06:30 WBC 9.5 RBC 4.27 Hgb 12.4 Hct 38.4 MCV 90.0 MCH 29.0 MCHC 32.2 RDW 13.8 Plt Count 186 MPV 10.5 Absolute Neuts (auto) 8.5 H Neutrophils % 89.7 H Lymphocytes % 4.7 L D Monocytes % 5.3 Eosinophils % 0.0 Basophils % 0.3 Nucleated RBC % 0 Sodium 148 H 142 Potassium 3.6 3.3 L Chloride 113 H 109 H Carbon Dioxide 26 27 Anion Gap 9 6 L BUN 16 13 Creatinine 0.6 0.7 Creat Clearance w eGFR > 60 > 60 Random Glucose 132 H 128 H Calcium 8.0 L 8.2 L Phosphorus 2.8 2.5 Magnesium 2.4 2.3 Total Bilirubin 0.3 0.6 AST 16 65 H ALT 57 83 H Alkaline Phosphatase 100 109 Creatine Kinase 70 76 Total Protein 5.6 L 6.1 L Albumin 2.2 L 2.6 L Vitamin B12 992 H Serum Folate 14 Active Medications Generic Name Dose Route Start Last Admin Trade Name Freq PRN Reason Stop Dose Admin Acetaminophen 650 mg 08/01/18 01:53 Tylenol - PO Q4H PRN FEVER Ascorbic Acid 500 mg 08/01/18 10:00 08/01/18 10:29 Vitamin C - PO 500 mg DAILY ART Administration Aspirin 81 mg 08/01/18 10:00 08/01/18 10:29 Asa - PO 81 mg DAILY ART Administration Benztropine Mesylate 2 mg 08/01/18 10:00 08/01/18 10:34 Cogentin Injection - IM 08/02/18 21:59 2 mg BID ART Administration Dexamethasone Sodium Phosphate 6 mg 08/01/18 04:00 08/01/18 03:47 Decadron Injection - IVPB 6 mg Q8H ART Administration Diphenhydramine HCl 50 mg 08/01/18 06:00 08/01/18 05:48 Benadryl Injection - IVPUSH 50 mg Q6HPO ART Administration Donepezil HCl 10 mg 08/01/18 22:00 Aricept - PO HS ART Heparin Sodium (Porcine) 5,000 unit 08/01/18 06:00 08/01/18 05:49 Heparin - SQ 5,000 unit TID ART Administration Ampicillin Sodium 2 gm/ Sodium 100 mls @ 200 mls/hr 08/01/18 05:00 08/01/18 09:52 Chloride IVPB 200 mls/hr Q4H ART Administration Protocol Dextrose 1,000 mls @ 42 mls/hr 08/01/18 01:53 08/01/18 04:42 D5w - IV Not Given ASDIR ART Thiamine HCl 200 mg 08/01/18 10:00 Vitamin B1 Injection - IVPB DAILY [facility] Valproate Sodium 250 mg 08/01/18 10:00 08/01/18 10:31 Depacon Injection - IVPB 250 mg BID ART Administration Zinc Sulfate 220 mg 08/01/18 10:00 08/01/18 10:30 Orazinc - PO 220 mg DAILY ART Administration ASSESSMENT/PLAN: Patient is a 62 year old male with history of dementia, prior alcohol abuse, CVA 's, and hyperlipidemia. He presented to the ED with an altered mental status, poor oral intake of oral foods and fluids. Patient was reportedly on haldol and seroquel and has been more lethargic with increased muscle rigidity. He presents with a fever of 103.4. Labs notable for WBC 11.6, normal lactic acid level, sodium 150, chloride 19, ast 91, alt 157 and creatine kinase 534 and a normal troponin. CT scan of head with moderate atrophy and no acute findings of infarct or hemorrhage. EKG showing a normal sinus rhythm with no signs of ischemia, nonspecific ST changes and no prolongation of Qtc. Per ED notes, patient was initially agitated and his haldol dose was increased at nursing facility. ID: Acute metabolic encephalopathy of unclear etiology Meningitis vs neuroleptic malignant syndrome On ampicillin Hold seroquel and haldol cont Benadryl, Benztropin scheduled Blood cultures and sputum cultures negative Trend CPK Neuro following head ct negative. Brain mri reviewed, no acute findings Renal Hypernatremia, improving On D5 @ 42cc/hr Neuro: Seizure Disorder h/o CVA Schizophrenia Alzheimer's Dementia Unable to assess neuro status in the setting of acute metabolic enceph. however , he is more awake today. On ASA 81mg antisychotics held On Valproate 250mg IV BID, Donepezil 10mg PO hs Family reports patient is more awake and alert. GI elevated ast/alt hx of etoh abuse on thiamine, folate, multivitamin fen no ivf monitor electrolytes on vital 1.2 ngt feeds. swallow eval when more awake Visit type - Emergency Visit Emergency Visit: Yes ED Registration Date: 07/28/18 Care time: The patient presented to the Emergency Department on the above date and was hospitalized for further evaluation of their emergent condition. - New Patient This patient is new to me today: No - Critical Care Critical Care patient: No - Discharge Referral Referred to [facility] Med [facility].C.: No
[2018-08-01] MEDS: THIAMINE HCL 200 MG/2 ML VIAL IVPB SCH (12:14)
--- NOTE | 2018-08-01 16:32 | PN ---
Progress Note, Physician History of Present Illness: stable wbc is normal awake alert looks like base line - Current Medication List Current Medications: Active Medications Acetaminophen (Tylenol -) 650 mg PO Q4H PRN PRN Reason: FEVER Ascorbic Acid (Vitamin C -) 500 mg PO DAILY [facility] Last Admin: 08/01/18 10:29 Dose: 500 mg Aspirin (Asa -) 81 mg PO DAILY [facility] Last Admin: 08/01/18 10:29 Dose: 81 mg Benztropine Mesylate (Cogentin Injection -) 2 mg IM BID [facility] Stop: 08/02/18 21:59 Last Admin: 08/01/18 10:34 Dose: 2 mg Dexamethasone Sodium Phosphate (Decadron Injection -) 6 mg IVPB Q8H [facility] Last Admin: 08/01/18 13:13 Dose: 6 mg Diphenhydramine HCl (Benadryl Injection -) 50 mg IVPUSH Q6HPO [facility] Last Admin: 08/01/18 12:18 Dose: 50 mg Donepezil HCl (Aricept -) 10 mg PO [facility] Heparin Sodium (Porcine) (Heparin -) 5,000 unit SQ TID [facility] Last Admin: 08/01/18 14:15 Dose: 5,000 unit Ampicillin Sodium 2 gm/ Sodium (Chloride) 100 mls @ 200 mls/hr IVPB Q4H [facility]; Protocol Last Admin: 08/01/18 14:15 Dose: 200 mls/hr Dextrose (D5w -) 1,000 mls @ 42 mls/hr IV ASDIR [facility] Last Admin: 08/01/18 04:42 Dose: Not Given Thiamine HCl (Vitamin B1 Injection -) 200 mg IVPB DAILY [facility] Last Admin: 08/01/18 12:14 Dose: 200 mg Valproate Sodium (Depacon Injection -) 250 mg IVPB BID [facility] Last Admin: 08/01/18 10:31 Dose: 250 mg Zinc Sulfate (Orazinc -) 220 mg PO DAILY [facility] Last Admin: 08/01/18 10:30 Dose: 220 mg - Objective Vital Signs: Vital Signs Temperature 97.9 F 08/01/18 14:36 Pulse Rate 70 08/01/18 14:36 Respiratory Rate 18 08/01/18 14:36 Blood Pressure 103/53 L 08/01/18 14:36 O2 Sat by Pulse Oximetry (%) 100 08/01/18 09:00 Constitutional: Yes: No Distress, Calm Cardiovascular: Yes: S1, S2 Respiratory: Yes: Poor Air Entry Gastrointestinal: Yes: Normal Bowel Sounds, Soft, Other (ng tube in place) Musculoskeletal: Yes: WNL Extremities: Yes: Other Neurological: Yes: Alert, Other Psychiatric: Yes: Other Labs: CBC, BMP 08/01/18 06:30 08/01/18 06:30 INR, PTT INR 1.29 (0.83-1.09) H 07/29/18 05:15 Assessment/Plan after looking at the history and to see how the patient came with along with infection i am worried that the symptoms could be due to drugs which patient was been given for agitation also now patient is coughing and producing sputum Altered Mental Status r/o Neuroleptic Malignant Syndrome r/o Seizures Seizure Disorder h/o CVA Schizophrenia Alzheimer's Dementia drug reaction plan can stop vanco and ceftriaxone continue amp nutrition patient improving will stop abx
[2018-08-01] MEDS ORDERED: PT OWN MED DRAWER 7, Y5N ONE ×2 (16:46→21:13)
[2018-08-01] MEDS: DONEPEZIL HCL 10 MG TABLET (FP) PO SCH (21:50)
[2018-08-01] MEDS ORDERED: CHLORHEXIDINE GLUCONATE 4% CLEANSER FOR DECOLONIZATION TP SCH (22:00)
[2018-08-02] MEDS ORDERED: PT OWN MED DRAWER 7, Y5N ONE ×4 (01:38→20:40)
[2018-08-02] MEDS: DEXTROSE 5%-WATER - 1,000 ML IV SCH ×2 (01:44→21:57)
[2018-08-02] MEDS: AMPICILLIN - 2 GM in SODIUM CHLORIDE 100 ML IVPB SCH ×4 (01:44→15:22)
[2018-08-02] MEDS: DEXAMETHASONE SOD PHOSPHATE 4 MG/1 ML VIAL IVPB SCH ×3 (04:59→21:56)
[2018-08-02] MEDS: HEPARIN NA (PORCINE) 5,000 UNITS/ML 1ML VIAL SQ SCH ×3 (06:39→21:56)
[2018-08-02 07:47] LABS: BASO % 0.3 % (0-2.0); EOS % 0.1 % (0-4.5); HEMATOCRIT 39.5 % (35.4-49); HEMOGLOBIN 12.6 GM/dL (11.7-16.9); LYMPH % 7.4 % (8-40); MCH 28.7 pg (25.7-33.7); MCHC 31.8 g/dl (32.0-35.9); MEAN CELL VOLUME 90.3 fl (80-96); MEAN PLT VOLUME 11.2 fl (7.5-11.1); MONO % 5.1 % (3.8-10.2); NEUT % 87.1 % (42.8-82.8); PLATELET COUNT 199 K/MM3 (134-434); RBC 4.38 M/mm3 (4.00-5.60); RDW 13.9 % (11.9-15.9); WHITE BLOOD COUNT 14.8 K/mm3 (4.0-10.0)
[2018-08-02 08:14] LABS: ALBUMIN 2.8 g/dl (3.4-5.0); ALK PHOS 120 U/L (45-117); ANION GAP 9 MMOL/L (8-16); BILIRUBIN,TOTAL 0.5 mg/dL (0.2-1); BLOOD UREA NITROGEN 12 mg/dL (7-18); CALCIUM 8.3 mg/dL (8.5-10.1); CHLORIDE 103 mmol/L (98-107); CO2 28 mmol/L (21-32); CREATININE 0.6 mg/dL (0.55-1.3); GLUCOSE,RANDOM 127 mg/dL (74-106); MAGNESIUM 2.3 mg/dL (1.8-2.4); POTASSIUM 3.5 mmol/L (3.5-5.1); SGOT/AST 37 U/L (15-37); SGPT/ALT 79 U/L (13-61); SODIUM 139 mmol/L (136-145); TOT PROT 6.5 g/dl (6.4-8.2)
[2018-08-02] MEDS: ASPIRIN 81 MG CHEWABLE TABLETS PO SCH (12:16)
[2018-08-02] MEDS: ASCORBIC ACID 500 MG TABLET (FP) PO SCH (12:16)
[2018-08-02] MEDS: ZINC SULFATE 220 MG CAPSULE (FP) PO SCH (12:16)
[2018-08-02] MEDS: THIAMINE HCL 200 MG/2 ML VIAL IVPB SCH (12:17)
[2018-08-02] MEDS: VALPROATE SODIUM 500 MG/5 ML VIAL IVPB SCH ×2 (12:18→21:56)
[2018-08-02] MEDS: BENZTROPINE MESYLATE 2 MG/2 ML INJECTION IM SCH (12:19)
--- NOTE | 2018-08-02 13:39 | PN ---
Progress Note, Physician History of Present Illness: patient clinically looks stable wbc has jumped up but patient looks comfortable - Current Medication List Current Medications: Active Medications Acetaminophen (Tylenol -) 650 mg PO Q4H PRN PRN Reason: FEVER Ascorbic Acid (Vitamin C -) 500 mg PO DAILY [facility] Last Admin: 08/02/18 12:16 Dose: 500 mg Aspirin (Asa -) 81 mg PO DAILY [facility] Last Admin: 08/02/18 12:16 Dose: 81 mg Benztropine Mesylate (Cogentin Injection -) 2 mg IM BID [facility] Stop: 08/02/18 21:59 Last Admin: 08/02/18 12:19 Dose: 2 mg Dexamethasone Sodium Phosphate (Decadron Injection -) 6 mg IVPB Q8H [facility] Last Admin: 08/02/18 12:16 Dose: 6 mg Diphenhydramine HCl (Benadryl Injection -) 50 mg IVPUSH Q6HPO [facility] Last Admin: 08/02/18 12:16 Dose: 50 mg Donepezil HCl (Aricept -) 10 mg PO HS [facility] Last Admin: 08/01/18 21:50 Dose: 10 mg Heparin Sodium (Porcine) (Heparin -) 5,000 unit SQ TID [facility] Last Admin: 08/02/18 06:39 Dose: 5,000 unit Dextrose (D5w -) 1,000 mls @ 42 mls/hr IV ASDIR [facility] Last Admin: 08/02/18 01:44 Dose: 42 mls/hr Thiamine HCl (Vitamin B1 Injection -) 200 mg IVPB DAILY [facility] Last Admin: 08/02/18 12:17 Dose: 200 mg Valproate Sodium (Depacon Injection -) 250 mg IVPB BID [facility] Last Admin: 08/02/18 12:18 Dose: 250 mg Zinc Sulfate (Orazinc -) 220 mg PO DAILY [facility] Last Admin: 08/02/18 12:16 Dose: 220 mg - Objective Vital Signs: Vital Signs Temperature 97.7 F 08/02/18 06:00 Pulse Rate 58 L 08/02/18 06:00 Respiratory Rate 18 08/02/18 06:00 Blood Pressure 142/70 08/02/18 06:00 O2 Sat by Pulse Oximetry (%) 100 08/01/18 21:00 Constitutional: Yes: No Distress, Calm Cardiovascular: Yes: S1, S2 Respiratory: Yes: Regular Gastrointestinal: Yes: Normal Bowel Sounds, Soft, Other (ng tube in place) Musculoskeletal: Yes: WNL Extremities: Yes: Other Neurological: Yes: Alert, Other Psychiatric: Yes: Alert Labs: CBC, BMP 08/02/18 06:40 08/02/18 06:40 INR, PTT INR 1.29 (0.83-1.09) H 07/29/18 05:15 Assessment/Plan after looking at the history and to see how the patient came with along with infection i am worried that the symptoms could be due to drugs which patient was been given for agitation also now patient is coughing and producing sputum Altered Mental Status r/o Neuroleptic Malignant Syndrome r/o Seizures Seizure Disorder h/o CVA Schizophrenia Alzheimer's Dementia drug reaction mrsa pneumonia patient having mrsa in sputum plan will start patient on vanco close watch rest as per the team monitor wbc
[2018-08-02] MEDS: VANCOMYCIN 1,250 MG in DEXTROSE 5%-WATER - 250 ML IVPB SCH (16:06)
--- NOTE | 2018-08-02 16:25 | CONSULT ---
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 Cardiovascular: Yes: Hyperlipdemia Gastrointestinal: Yes: Other (poor po intake) - Smoking History Smoking history: Never smoked Have you smoked in the past 12 months: No - Alcohol/Substance Use Hx Alcohol Use: No History - Admission Reason For Visit: NEUROLEPTIC MALIGNANT SYND, FEVER OF UNKNOWN ORIGI - Hearing Hearing: Normal Hearing Aide: No With Patient: No Speech Evaluation - Communication Primary Language: KAZAKH Secondary Language: SWEDISH (little ) Communication: Yes: Language Barrier (primary language is [place]an), Visual Deficit (Not reactive to light) Oral Expression Ability: Yes: Moderate Impairment - Speech Production Dysarthria: Yes: Ataxic Apraxia: No Able to Make Needs Known: Yes: Moderately Impaired Intelligibility: Yes: Moderately Impaired - Speech Characteristics Voice Loudness: Mildly Soft/Quiet Voice Pitch: Yes: Limited Variation Voice Phonatory-based Quality: Yes: Tremor Speech Pattern: Impaired Speech Clarity: < 50% Nasal Resonance: Normal Articulation: Yes: Imprecise Rate of Speech: Too Slow Voice, Other Observations: Yes: Mouth Breathing - Language/Auditory Comprehension Follows: Yes: 1 Stage Simple Commands (WFL if directive given in [place]an) Observation: Able to respond to yes/no queries: Yes (intermittant), Yes/No Confusion: No, Comprehends Conversational Speech: Yes, Benefits from Slow Speech : Yes, Benefits from Repetiton: Yes, Benefits from Increased Volume of Speech: Yes - Language/Verbal Expression Aphasia: Yes: Apraxia Able to Respond to Simple Queries: Yes: Moderately Impaired Able to Communicate Wants and Needs: Yes: Moderately Impaired Functional Communication Status: Yes: Moderately Impaired Aware of Errors: No Attempts to Correct Errors: No Use of Gestures: No Written Expression: not examined Oral Expression: limited speech sample Reading Comprehension: not examined Calculations: not examined Attention: Yes: Intact - 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: Moderately Impaired Short Term Memory: Yes: Moderately Impaired - Swallow Evaluation/Bedside Assessment Current Nutritional Intake: NPO Oral Secretions: Yes: WFL Tracheostomy Present: No Patient on Ventilator: No Dentition: Yes: Adequate Facial Symmetry at Rest: Symmetrical Facial Symmetry on Retraction: Symmetrical Facial Movement: Involuntary Sensation: Normal Facial Comment: WFL for speech and swallowing purposes Jaw Position: Closed at Rest Against Resistance Opening: Normal Against Resistance Closing: Normal Lips, Comment: Limited study; appears WNL Lingual Movement: Symmetric, Apraxic Lingual Speed of Movement: Reduced Lingual Movement Strgth Against Opposition: Reduced Lingual Movement Characteristics: Spasms, Writhing, Fasciculations Lingual Comment: Reduced but appears WNL Bite Reflex: Present Velopharyngeal Movement: Normal Laryngeal Elevation: WFL Laryngeal Movement: Able to Palpate Needs Assistance: Yes Rate of Intake: Slow/Holding Bolus Size: Small (pt would not open mouth wide for large bolus) Sensation: Bite Reflex Chewing: WFL Oral Prep Time: WFL A-P Transit: WFL Pocketing: None Timing of Swallow: Delayed (2-4 seconds average, multiple swallow observed) Odynophagia: Pharyngeal Coughing/Throat Clear: No Change in Voice: No Other Findings/Remarks: 62 yo male seen at bedside for swallow eval to r/o dysphagia. 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 Pt is minimally verbal, A&Ox1 somewhat cooperative. PMHX includes advanced dementia, CVA admitted to [facility] for AMS. Limited oral motor examination. Tongue demonstrates spasm like behaviors. Current diet NPO, NGT in place Pt given po trials of pureed only with total assistance revealed reduced acceptance, bolus control adequate, pharyngeal swallow were delayed with multiple swallow observed. No cough observed. Limited study Pt given po trials of ice chips, thin liquids with total assistance was unremarkable for aspiration at this time. Limited study. Recommendations - Speech Evaluation, Impression/Plan Impression: 62 yo male presents with mild to moderate megan-pharyngeal dysphagia for solids and liquids. No overt s/s of aspiration. TIME CLOCK INSPECTOR did not notice a cough reflex. Expressive Language skills and also reduced secondary to advanced dementia. 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 Observe standard aspiration precautions. Continue NGT Short Term Goals: Tolerate NGT feeding at this time without s/s aspiration - Dysphagia Impressions/Plan Swallowing Skills: Impaired Dysphagia Impressions: Moderate Impairment, Risk of Aspiration, Refused PO Trials *Silent aspiration: cannot be R/O at bedside Dysphagia Treatment Plan: Other (Provide oral care as needed.) Dysphagia Evaluation Summary: Pt is more alert today. NO airway protection observed during this session. Continue NPO status at this time. Maintain NGT. Observe standard aspiration precautions. Results given verbally to extension service specialist in charge Liya and to pcp via chart. TIME CLOCK INSPECTOR to follow up. - Recommendations Diet Consistency: NPO Liquids: NPO
--- NOTE | 2018-08-02 16:52 | PN ---
Progress Note (short form) - Note Progress Note: 62 year old male history of Dementia, alcohol abuse, storke, HLD . Patient was in custodial and was brought to hospital as he was having mental status detioration. Compa has ct head showed cortical atrophy and found to have high grade fever and suspected to have NMS and dantrolene was given Patient was given medication for menigitis and no psinal tap was done. His wbc is coming dwon and has been febrile. EEG reviewed there no epileptic seizure, there is muscle artifact vs sharp waves , suggest to rpeat Patient is feeling better and able to respond, when I asked "how you doing" he said ," he is doing good" and smiled. NEUROLOGICAL EXAMINATION VSS and febrile He is repsonding to verbal stimuli There is rigidity in upper and lower extrmeity, appears to be less rigid than admission pupils reactive mild terminal neck stiffness( part of generalized rigidity) mri of brain is normal eeg reviewed : generalized encephalopathy and muscle artifacts vs sharp wave, sugges to repeat Assessment/Plan 62 year old male history of alcohol abuse, dementia with behavior disturbance on two antipsychotic medicaitons ( haldol and seroquel) in [place]. He has history of seizure disorder and schizophrenia. He is brought with high fever, rigidity , slightly high cpk and AMS. Suspected to have NMS less likey to be meningitis clinically has improved markedly and now responding to verbal stimuli repeat eeg Thanking you so much Toni Heart MD
--- NOTE | 2018-08-02 17:20 | PN ---
Physical Exam: SUBJECTIVE: Patient seen and examined at the bedside. OBJECTIVE: Vital Signs Period Temp Pulse Resp BP Sys/Cortes Pulse Ox Last 24 Hr 97.6 F-98 F 58-66 18-22 102-142/52-84 100-100 GENERAL: in no acute distress. eyes open, more awake, recognized his sister and saying some words in swedish. HEAD: Normal with no signs of trauma. EYES: PERRL, extraocular movements intact, sclera anicteric, conjunctiva clear. No ptosis. ENT: Ears normal, nares patent, oropharynx clear without exudates, moist mucous membranes. NECK: Trachea midline, full range of motion, supple. LUNGS: Breath sounds equal, clear to auscultation anteriorly HEART: Regular rate and rhythm ABDOMEN: Soft, nontender, nondistended, normoactive bowel sounds EXTREMITIES: no edema. NEUROLOGICAL: lethargic, but overall more improved. Laboratory Results - last 24 hr 08/02/18 08/02/18 06:40 06:40 WBC 14.8 H RBC 4.38 Hgb 12.6 Hct 39.5 MCV 90.3 MCH 28.7 MCHC 31.8 L RDW 13.9 Plt Count 199 MPV 11.2 H Absolute Neuts (auto) 12.9 H Neutrophils % 87.1 H Lymphocytes % 7.4 L D Monocytes % 5.1 Eosinophils % 0.1 D Basophils % 0.3 Nucleated RBC % 0 Sodium 139 Potassium 3.5 Chloride 103 Carbon Dioxide 28 Anion Gap 9 BUN 12 Creatinine 0.6 Creat Clearance w eGFR > 60 Random Glucose 127 H Calcium 8.3 L Magnesium 2.3 Total Bilirubin 0.5 AST 37 ALT 79 H Alkaline Phosphatase 120 H Total Protein 6.5 Albumin 2.8 L Active Medications Generic Name Dose Route Start Last Admin Trade Name Freq PRN Reason Stop Dose Admin Acetaminophen 650 mg 08/01/18 01:53 Tylenol - PO Q4H PRN FEVER Ascorbic Acid 500 mg 08/01/18 10:00 08/02/18 12:16 Vitamin C - PO 500 mg DAILY ART Administration Aspirin 81 mg 08/01/18 10:00 08/02/18 12:16 Asa - PO 81 mg DAILY ART Administration Benztropine Mesylate 2 mg 08/01/18 10:00 08/02/18 12:19 Cogentin Injection - IM 08/02/18 21:59 2 mg BID ART Administration Dexamethasone Sodium Phosphate 6 mg 08/01/18 04:00 08/02/18 12:16 Decadron Injection - IVPB 6 mg Q8H ART Administration Diphenhydramine HCl 50 mg 08/01/18 06:00 08/02/18 12:16 Benadryl Injection - IVPUSH 50 mg Q6HPO ART Administration Donepezil HCl 10 mg 08/01/18 22:00 08/01/18 21:50 Aricept - PO 10 mg HS ART Administration Heparin Sodium (Porcine) 5,000 unit 08/01/18 06:00 08/02/18 06:39 Heparin - SQ 5,000 unit TID ART Administration Dextrose 1,000 mls @ 42 mls/hr 08/01/18 01:53 08/02/18 01:44 D5w - IV 42 mls/hr ASDIR ART Administration Vancomycin HCl 1,250 mg/ 250 mls @ 250 mls/2 hr 08/02/18 15:00 Dextrose IVPB Q24H ART Protocol Thiamine HCl 200 mg 08/01/18 10:00 08/02/18 12:17 Vitamin B1 Injection - IVPB 200 mg DAILY ART Administration Valproate Sodium 250 mg 08/01/18 10:00 08/02/18 12:18 Depacon Injection - IVPB 250 mg BID ART Administration Zinc Sulfate 220 mg 08/01/18 10:00 08/02/18 12:16 Orazinc - PO 220 mg DAILY ART Administration ASSESSMENT/PLAN: Patient is a 62 year old male with history of dementia, prior alcohol abuse, CVA 's, and hyperlipidemia. He presented to the ED with an altered mental status, poor oral intake of oral foods and fluids. Patient was reportedly on haldol and seroquel and has been more lethargic with increased muscle rigidity. He presents with a fever of 103.4. Labs notable for WBC 11.6, normal lactic acid level, sodium 150, chloride 19, ast 91, alt 157 and creatine kinase 534 and a normal troponin. CT scan of head with moderate atrophy and no acute findings of infarct or hemorrhage. EKG showing a normal sinus rhythm with no signs of ischemia, nonspecific ST changes and no prolongation of Qtc. Per ED notes, patient was initially agitated and his haldol dose was increased at nursing facility. ID: Acute metabolic encephalopathy of unclear etiology Meningitis vs neuroleptic malignant syndrome cont Benadryl, Benztropin scheduled Blood cultures and sputum cultures negative, +mrsa on sputum, started back on vancomycin. Neuro following, ID following. head ct negative. Brain mri reviewed, no acute findings Renal Hypernatremia, improving On D5 @ 42cc/hr Neuro: Seizure Disorder h/o CVA Schizophrenia Alzheimer's Dementia Unable to assess neuro status in the setting of acute metabolic enceph. however , he is more awake today and attempting to speak to his sister. On ASA 81mg antisychotics held On Valproate 250mg IV BID, Donepezil 10mg PO hs Family reports patient is more awake and alert. GI elevated ast/alt hx of etoh abuse on thiamine, folate, multivitamin fen no ivf monitor electrolytes on vital 1.2 ngt feeds. swallow eval when more awake Visit type - Emergency Visit Emergency Visit: Yes ED Registration Date: 07/28/18 Care time: The patient presented to the Emergency Department on the above date and was hospitalized for further evaluation of their emergent condition. - New Patient This patient is new to me today: No - Critical Care Critical Care patient: No - Discharge Referral Referred to [facility] Med P.C.: No
[2018-08-02] MEDS: DONEPEZIL HCL 10 MG TABLET (FP) PO SCH (21:57)
[2018-08-03] MEDS: DEXTROSE 5%-WATER - 1,000 ML IV SCH (05:08)
[2018-08-03] MEDS: HEPARIN NA (PORCINE) 5,000 UNITS/ML 1ML VIAL SQ SCH ×3 (05:11→21:44)
[2018-08-03] MEDS: DEXAMETHASONE SOD PHOSPHATE 4 MG/1 ML VIAL IVPB SCH ×3 (05:11→20:42)
[2018-08-03 09:51] LABS: BASO % 0.1 % (0-2.0); HEMATOCRIT 39.3 % (35.4-49); HEMOGLOBIN 13.3 GM/dL (11.7-16.9); LYMPH % 2.8 % (8-40); MCH 30.3 pg (25.7-33.7); MCHC 33.7 g/dl (32.0-35.9); MEAN CELL VOLUME 89.9 fl (80-96); MEAN PLT VOLUME 11.7 fl (7.5-11.1); MONO % 2.5 % (3.8-10.2); NEUT % 94.6 % (42.8-82.8); PLATELET COUNT 209 K/MM3 (134-434); RBC 4.38 M/mm3 (4.00-5.60); RDW 14.3 % (11.9-15.9)
[2018-08-03] MEDS ORDERED: PT OWN MED DRAWER 7, Y5N ONE (09:55)
[2018-08-03] MEDS: ASPIRIN 81 MG CHEWABLE TABLETS PO SCH (10:02)
[2018-08-03] MEDS: ASCORBIC ACID 500 MG TABLET (FP) PO SCH (10:02)
[2018-08-03] MEDS: THIAMINE HCL 200 MG/2 ML VIAL IVPB SCH (10:02)
[2018-08-03] MEDS: ZINC SULFATE 220 MG CAPSULE (FP) PO SCH (10:02)
[2018-08-03] MEDS: VALPROATE SODIUM 500 MG/5 ML VIAL IVPB SCH ×2 (10:02→21:43)
[2018-08-03 10:24] LABS: ALBUMIN 2.8 g/dl (3.4-5.0); ALK PHOS 119 U/L (45-117); ANION GAP 7 MMOL/L (8-16); BILIRUBIN,TOTAL 0.4 mg/dL (0.2-1); BLOOD UREA NITROGEN 12 mg/dL (7-18); CALCIUM 8.5 mg/dL (8.5-10.1); CHLORIDE 99 mmol/L (98-107); CO2 28 mmol/L (21-32); CREATININE 0.6 mg/dL (0.55-1.3); GLUCOSE,RANDOM 142 mg/dL (74-106); MAGNESIUM 2.5 mg/dL (1.8-2.4); POTASSIUM 4.1 mmol/L (3.5-5.1); SGOT/AST 41 U/L (15-37); SGPT/ALT 73 U/L (13-61); SODIUM 135 mmol/L (136-145); TOT PROT 6.5 g/dl (6.4-8.2)
[2018-08-03 11:21] LABS: ANISOCYTOSIS 0; MACROCYTOSIS 0; PLATELET ESTIMATE NORMAL
[2018-08-03] MEDS: PANTOPRAZOLE SODIUM 40 MG VIAL IVPUSH SCH (13:47)
--- NOTE | 2018-08-03 14:31 | PN ---
Progress Note, Physician History of Present Illness: clinically patient looks stable more interactive wbc has jumped up - Current Medication List Current Medications: Active Medications Acetaminophen (Tylenol -) 650 mg PO Q4H PRN PRN Reason: FEVER Ascorbic Acid (Vitamin C -) 500 mg PO DAILY [facility] Last Admin: 08/03/18 10:02 Dose: 500 mg Aspirin (Asa -) 81 mg PO DAILY [facility] Last Admin: 08/03/18 10:02 Dose: 81 mg Dexamethasone Sodium Phosphate (Decadron Injection -) 6 mg IVPB Q8H [facility] Last Admin: 08/03/18 12:05 Dose: 6 mg Diphenhydramine HCl (Benadryl Injection -) 50 mg IVPUSH Q6HPO [facility] Last Admin: 08/03/18 12:07 Dose: 50 mg Donepezil HCl (Aricept -) 10 mg PO HS [facility] Last Admin: 08/02/18 21:57 Dose: 10 mg Heparin Sodium (Porcine) (Heparin -) 5,000 unit SQ TID [facility] Last Admin: 08/03/18 13:47 Dose: 5,000 unit Dextrose (D5w -) 1,000 mls @ 42 mls/hr IV ASDIR [facility] Last Admin: 08/03/18 05:08 Dose: Not Given Vancomycin HCl 1,250 mg/ (Dextrose) 250 mls @ 250 mls/2 hr IVPB Q24H [facility]; Protocol Last Admin: 08/02/18 16:06 Dose: 250 mls/2 hr Pantoprazole Sodium (Protonix Iv) 40 mg IVPUSH DAILY [facility] Last Admin: 08/03/18 13:47 Dose: 40 mg Thiamine HCl (Vitamin B1 Injection -) 200 mg IVPB DAILY [facility] Last Admin: 08/03/18 10:02 Dose: 200 mg Valproate Sodium (Depacon Injection -) 250 mg IVPB BID [facility] Last Admin: 08/03/18 10:02 Dose: 250 mg Zinc Sulfate (Orazinc -) 220 mg PO DAILY [facility] Last Admin: 08/03/18 10:02 Dose: 220 mg - Objective Vital Signs: Vital Signs Temperature 98 F 08/03/18 13:41 Pulse Rate 85 08/03/18 13:41 Respiratory Rate 16 08/03/18 13:41 Blood Pressure 116/77 08/03/18 13:41 O2 Sat by Pulse Oximetry (%) 98 08/03/18 10:00 Constitutional: Yes: No Distress, Calm Cardiovascular: Yes: Regular Rate and Rhythm Respiratory: Yes: Regular, Poor Air Entry Gastrointestinal: Yes: Normal Bowel Sounds, Soft, Other (ng tube in place) Musculoskeletal: Yes: WNL Extremities: Yes: WNL Neurological: Yes: Alert, Other Psychiatric: Yes: Other Labs: CBC, BMP 08/03/18 09:27 08/03/18 09:27 INR, PTT INR 1.29 (0.83-1.09) H 07/29/18 05:15 Assessment/Plan after looking at the history and to see how the patient came with along with infection i am worried that the symptoms could be due to drugs which patient was been given for agitation also now patient is coughing and producing sputum Altered Mental Status r/o Neuroleptic Malignant Syndrome r/o Seizures Seizure Disorder h/o CVA Schizophrenia Alzheimer's Dementia drug reaction mrsa pneumonia patients wbc is increasing i am worried if patient is aspirating plan continue vanco will add zosyn rest as per the team close monitoring of wbc if wbc goes up will panculture
[2018-08-03] MEDS ORDERED: DEXTROSE 5%-WATER - 50 ML IVPB ONE ×2 (14:57→17:42)
[2018-08-03] MEDS ORDERED: PIPERACILLIN/TAZOBACTAM 3.375 GM VIAL IVPB ONE ×2 (14:57→17:42)
[2018-08-03] MEDS: PIPERACILLIN/TAZOB 3.375 GM 3.375 GM in DEXTROSE 5%-WATER - 50 ML IVPB SCH ×2 (15:13→18:32)
[2018-08-03] MEDS: VANCOMYCIN 1,250 MG in DEXTROSE 5%-WATER - 250 ML IVPB SCH (16:20)
--- NOTE | 2018-08-03 16:41 | PN ---
Physical Exam: SUBJECTIVE: Patient seen and examined OBJECTIVE: Vital Signs Period Temp Pulse Resp BP Sys/Cortes Pulse Ox Last 24 Hr 97.9 F-99.1 F 67-85 16-20 116-150/69-88 98-100 GENERAL: in no acute distress. eyes open, more awake, recognized his sister and saying some words in gibraltarian. HEAD: Normal with no signs of trauma. EYES: PERRL, extraocular movements intact, sclera anicteric, conjunctiva clear. No ptosis. ENT: Ears normal, nares patent, oropharynx clear without exudates, moist mucous membranes. NECK: Trachea midline, full range of motion, supple. LUNGS: Breath sounds equal, clear to auscultation anteriorly HEART: Regular rate and rhythm ABDOMEN: Soft, nontender, nondistended, normoactive bowel sounds EXTREMITIES: no edema. bilateral hips with pressure associated redness, right ear with healed pressure sore, heals reddened. NEUROLOGICAL: lethargic, but overall more improved. Laboratory Results - last 24 hr 08/03/18 08/03/18 09:27 09:27 WBC 18.0 H RBC 4.38 Hgb 13.3 Hct 39.3 MCV 89.9 MCH 30.3 MCHC 33.7 RDW 14.3 Plt Count 209 MPV 11.7 H Absolute Neuts (auto) 17.1 H Neutrophils % 94.6 H Neutrophils % (Manual) 98.0 H Band Neutrophils % 0.0 Lymphocytes % 2.8 L D Lymphocytes % (Manual) 1.0 L Monocytes % 2.5 L Monocytes % (Manual) 1 L Eosinophils % 0.0 D Eosinophils % (Manual) 0.0 Basophils % 0.1 Basophils % (Manual) 0.0 Myelocytes % (Man) 0 Promyelocytes % (Man) 0 Blast Cells % (Manual) 0 Nucleated RBC % 0 Metamyelocytes 0 Hypochromia 0 Platelet Estimate Normal Polychromasia 0 Poikilocytosis 0 Anisocytosis 0 Microcytosis 0 Macrocytosis 0 Sodium 135 L Potassium 4.1 Chloride 99 Carbon Dioxide 28 Anion Gap 7 L BUN 12 Creatinine 0.6 Creat Clearance w eGFR > 60 Random Glucose 142 H Calcium 8.5 Magnesium 2.5 H Total Bilirubin 0.4 AST 41 H ALT 73 H Alkaline Phosphatase 119 H Total Protein 6.5 Albumin 2.8 L Active Medications Generic Name Dose Route Start Last Admin Trade Name Freq PRN Reason Stop Dose Admin Acetaminophen 650 mg 08/01/18 01:53 Tylenol - PO Q4H PRN FEVER Ascorbic Acid 500 mg 08/01/18 10:00 08/03/18 10:02 Vitamin C - PO 500 mg DAILY ART Administration Aspirin 81 mg 08/01/18 10:00 08/03/18 10:02 Asa - PO 81 mg DAILY ART Administration Dexamethasone Sodium Phosphate 6 mg 08/01/18 04:00 08/03/18 12:05 Decadron Injection - IVPB 6 mg Q8H ART Administration Diphenhydramine HCl 50 mg 08/01/18 06:00 08/03/18 12:07 Benadryl Injection - IVPUSH 50 mg Q6HPO ART Administration Donepezil HCl 10 mg 08/01/18 22:00 08/02/18 21:57 Aricept - PO 10 mg HS ART Administration Heparin Sodium (Porcine) 5,000 unit 08/01/18 06:00 08/03/18 13:47 Heparin - SQ 5,000 unit TID ART Administration Dextrose 1,000 mls @ 42 mls/hr 08/01/18 01:53 08/03/18 05:08 D5w - IV Not Given ASDIR ART Vancomycin HCl 1,250 mg/ 250 mls @ 250 mls/2 hr 08/02/18 15:00 08/03/18 16:20 Dextrose IVPB 250 mls/2 hr Q24H ART Administration Protocol Piperacillin Sod/Tazobactam 50 mls @ 100 mls/hr 08/03/18 14:45 08/03/18 15:13 Sod 3.375 gm/ Dextrose IVPB 100 mls/hr Q8H-IV ART Administration Protocol Pantoprazole Sodium 40 mg 08/03/18 13:30 08/03/18 13:47 Protonix Iv IVPUSH 40 mg DAILY ART Administration Thiamine HCl 200 mg 08/01/18 10:00 08/03/18 10:02 Vitamin B1 Injection - IVPB 200 mg DAILY ART Administration Valproate Sodium 250 mg 08/01/18 10:00 08/03/18 10:02 Depacon Injection - IVPB 250 mg BID ART Administration Zinc Sulfate 220 mg 08/01/18 10:00 08/03/18 10:02 Orazinc - PO 220 mg DAILY ART Administration ASSESSMENT/PLAN: Patient is a 62 year old male with history of dementia, prior alcohol abuse, CVA 's, and hyperlipidemia. He presented to the ED with an altered mental status, poor oral intake of oral foods and fluids. Patient was reportedly on haldol and seroquel and has been more lethargic with increased muscle rigidity from [place]. ID: Acute metabolic encephalopathy of unclear etiology, resolved Meningitis vs neuroleptic malignant syndrome cont Benadryl, Benztropin scheduled Blood cultures and sputum cultures negative, +mrsa on sputum, started back on vancomycin. Neuro following, ID following. head ct negative. Brain mri reviewed, no acute findings Renal Hypernatremia, resolving. Neuro: Seizure Disorder h/o CVA Schizophrenia Alzheimer's Dementia On ASA 81mg antisychotics held On Valproate 250mg IV BID, Donepezil 10mg PO hs Family reports patient is more awake and alert. GI elevated ast/alt hx of etoh abuse on thiamine, folate, multivitamin fen no ivf monitor electrolytes on vital 1.2 ngt feeds. swallow eval Visit type - Emergency Visit Emergency Visit: Yes ED Registration Date: 07/28/18 Care time: The patient presented to the Emergency Department on the above date and was hospitalized for further evaluation of their emergent condition. - New Patient This patient is new to me today: No - Critical Care Critical Care patient: No - Discharge Referral Referred to [facility] Med P.C.: No
[2018-08-03] MEDS: DONEPEZIL HCL 10 MG TABLET (FP) PO SCH (21:44)
[2018-08-04] MEDS ORDERED: PIPERACILLIN/TAZOBACTAM 3.375 GM VIAL IVPB ONE ×3 (00:23→17:05)
[2018-08-04] MEDS ORDERED: DEXTROSE 5%-WATER - 50 ML IVPB ONE ×3 (00:23→17:06)
[2018-08-04] MEDS: PIPERACILLIN/TAZOB 3.375 GM 3.375 GM in DEXTROSE 5%-WATER - 50 ML IVPB SCH ×3 (01:51→17:13)
[2018-08-04] MEDS: DEXAMETHASONE SOD PHOSPHATE 4 MG/1 ML VIAL IVPB SCH ×3 (03:51→20:07)
[2018-08-04] MEDS: HEPARIN NA (PORCINE) 5,000 UNITS/ML 1ML VIAL SQ SCH ×3 (05:56→22:16)
[2018-08-04] MEDS: DEXTROSE 5%-WATER - 1,000 ML IV SCH ×2 (05:59→19:30)
[2018-08-04 08:35] LABS: BASO % 0.3 % (0-2.0); HEMATOCRIT 39.3 % (35.4-49); HEMOGLOBIN 12.5 GM/dL (11.7-16.9); LYMPH % 3.2 % (8-40); MCH 28.8 pg (25.7-33.7); MCHC 31.7 g/dl (32.0-35.9); MEAN CELL VOLUME 90.9 fl (80-96); MEAN PLT VOLUME 11.1 fl (7.5-11.1); MONO % 2.7 % (3.8-10.2); NEUT % 93.8 % (42.8-82.8); PLATELET COUNT 197 K/MM3 (134-434); RBC 4.32 M/mm3 (4.00-5.60); WHITE BLOOD COUNT 17.5 K/mm3 (4.0-10.0)
[2018-08-04 09:17] LABS: ALBUMIN 2.6 g/dl (3.4-5.0); ALK PHOS 105 U/L (45-117); ANION GAP 7 MMOL/L (8-16); BILIRUBIN,TOTAL 0.4 mg/dL (0.2-1); BLOOD UREA NITROGEN 12 mg/dL (7-18); CALCIUM 8.3 mg/dL (8.5-10.1); CHLORIDE 103 mmol/L (98-107); CO2 27 mmol/L (21-32); CREATININE 0.5 mg/dL (0.55-1.3); GLUCOSE,RANDOM 140 mg/dL (74-106); MAGNESIUM 2.4 mg/dL (1.8-2.4); POTASSIUM 4.2 mmol/L (3.5-5.1); SGOT/AST 27 U/L (15-37); SGPT/ALT 62 U/L (13-61); SODIUM 138 mmol/L (136-145); TOT PROT 5.9 g/dl (6.4-8.2)
[2018-08-04] MEDS: THIAMINE HCL 200 MG/2 ML VIAL IVPB SCH (10:00)
[2018-08-04 10:03] LABS: ANISOCYTOSIS 0; HELMET CELLS 0; HOWELL-JOLLY BODIES 0; MACROCYTOSIS 0; OVALOCYTE 0; PLATELET ESTIMATE NORMAL; ROULEAU 0; SICKELED CELLS 0; TARGET CELLS 0; TEAR DROP CELLS 0; TOXIC GRANULATION 0
[2018-08-04] MEDS ORDERED: PT OWN MED DRAWER 7, Y5N ONE ×2 (10:17→11:41)
[2018-08-04] MEDS: ASPIRIN 81 MG CHEWABLE TABLETS PO SCH (10:41)
[2018-08-04] MEDS: PANTOPRAZOLE SODIUM 40 MG VIAL IVPUSH SCH (10:41)
[2018-08-04] MEDS: ZINC SULFATE 220 MG CAPSULE (FP) PO SCH (10:41)
[2018-08-04] MEDS: ASCORBIC ACID 500 MG TABLET (FP) PO SCH (10:41)
[2018-08-04] MEDS: VALPROATE SODIUM 500 MG/5 ML VIAL IVPB SCH ×2 (12:00→22:16)
--- NOTE | 2018-08-04 13:08 | PN ---
Progress Note, Physician History of Present Illness: clinically stable responsive awake and alert - Current Medication List Current Medications: Active Medications Acetaminophen (Tylenol -) 650 mg PO Q4H PRN PRN Reason: FEVER Ascorbic Acid (Vitamin C -) 500 mg PO DAILY [facility] Last Admin: 08/04/18 10:41 Dose: 500 mg Aspirin (Asa -) 81 mg PO DAILY [facility] Last Admin: 08/04/18 10:41 Dose: 81 mg Dexamethasone Sodium Phosphate (Decadron Injection -) 6 mg IVPB Q8H [facility] Last Admin: 08/04/18 12:14 Dose: 6 mg Diphenhydramine HCl (Benadryl Injection -) 50 mg IVPUSH Q6HPO [facility] Last Admin: 08/04/18 11:59 Dose: 50 mg Donepezil HCl (Aricept -) 10 mg PO HS [facility] Last Admin: 08/03/18 21:44 Dose: 10 mg Heparin Sodium (Porcine) (Heparin -) 5,000 unit SQ TID [facility] Last Admin: 08/04/18 05:56 Dose: 5,000 unit Dextrose (D5w -) 1,000 mls @ 42 mls/hr IV ASDIR [facility] Last Admin: 08/04/18 05:59 Dose: Not Given Vancomycin HCl 1,250 mg/ (Dextrose) 250 mls @ 250 mls/2 hr IVPB Q24H [facility]; Protocol Last Admin: 08/03/18 16:20 Dose: 250 mls/2 hr Piperacillin Sod/Tazobactam (Sod 3.375 gm/ Dextrose) 50 mls @ 100 mls/hr IVPB Q8H-IV ART; Protocol Last Admin: 08/04/18 10:40 Dose: 100 mls/hr Pantoprazole Sodium (Protonix Iv) 40 mg IVPUSH DAILY [facility] Last Admin: 08/04/18 10:41 Dose: 40 mg Thiamine HCl (Vitamin B1 Injection -) 200 mg IVPB DAILY [facility] Last Admin: 08/04/18 10:00 Dose: 200 mg Valproate Sodium (Depacon Injection -) 250 mg IVPB BID [facility] Last Admin: 08/04/18 12:00 Dose: 250 mg Zinc Sulfate (Orazinc -) 220 mg PO DAILY [facility] Last Admin: 08/04/18 10:41 Dose: 220 mg - Objective Vital Signs: Vital Signs Temperature 98.1 F 08/04/18 04:00 Pulse Rate 67 01/13/19 04:00 Respiratory Rate 18 08/04/18 04:00 Blood Pressure 105/67 08/04/18 04:00 O2 Sat by Pulse Oximetry (%) 98 08/03/18 21:00 Constitutional: Yes: No Distress, Calm Cardiovascular: Yes: Regular Rate and Rhythm Respiratory: Yes: Regular, CTA Bilaterally Gastrointestinal: Yes: Normal Bowel Sounds, Soft, Other (ng tube in place) Musculoskeletal: Yes: WNL Extremities: Yes: WNL Neurological: Yes: Alert, Other Psychiatric: Yes: Other Labs: CBC, BMP 08/04/18 07:30 08/04/18 07:30 INR, PTT INR 1.29 (0.83-1.09) H 07/29/18 05:15 Assessment/Plan after looking at the history and to see how the patient came with along with infection i am worried that the symptoms could be due to drugs which patient was been given for agitation also now patient is coughing and producing sputum Altered Mental Status r/o Neuroleptic Malignant Syndrome r/o Seizures Seizure Disorder h/o CVA Schizophrenia Alzheimer's Dementia drug reaction mrsa pneumonia wbc decreasing plan continue [facility] will add zosyn rest as per the team close monitoring of wbc
[2018-08-04] MEDS: VANCOMYCIN 1,250 MG in DEXTROSE 5%-WATER - 250 ML IVPB SCH (15:37)
--- NOTE | 2018-08-04 16:39 | PN ---
Physical Exam: SUBJECTIVE: Patient seen and examined. tolerating feeds, more awake, no overnight events. OBJECTIVE: repeat swallow evaluation Vital Signs Period Temp Pulse Resp BP Sys/Cortes Pulse Ox Last 24 Hr 97.5 F-98.2 F 63-85 18-18 102-127/56-68 98-98 GENERAL: in no acute distress. eyes open, more awake and alert. HEAD: Normal with no signs of trauma. EYES: PERRL, extraocular movements intact, sclera anicteric, conjunctiva clear. No ptosis. ENT: Ears normal, nares patent, oropharynx clear without exudates, moist mucous membranes. NECK: Trachea midline, full range of motion, supple. LUNGS: Breath sounds equal, clear to auscultation anteriorly HEART: Regular rate and rhythm ABDOMEN: Soft, nontender, nondistended, normoactive bowel sounds EXTREMITIES: no edema. bilateral hips with pressure associated redness, right ear with healed pressure sore, heals reddened. NEUROLOGICAL: lethargic, but overall more improved. Laboratory Results - last 24 hr 08/04/18 08/04/18 07:30 07:30 WBC 17.5 H RBC 4.32 Hgb 12.5 Hct 39.3 MCV 90.9 MCH 28.8 MCHC 31.7 L RDW 14.0 Plt Count 197 MPV 11.1 Absolute Neuts (auto) 16.4 H Neutrophils % 93.8 H Neutrophils % (Manual) 96.0 H Band Neutrophils % 0.0 Lymphocytes % 3.2 L Lymphocytes % (Manual) 1.0 L Monocytes % 2.7 L Monocytes % (Manual) 3 L D Eosinophils % 0.0 Eosinophils % (Manual) 0.0 Basophils % 0.3 Basophils % (Manual) 0.0 Myelocytes % (Man) 0 Promyelocytes % (Man) 0 Blast Cells % (Manual) 0 Nucleated RBC % 0 Metamyelocytes 0 Hypochromia 0 Toxic Granulation 0 Dohle Bodies 0 Platelet Estimate Normal Polychromasia 0 Poikilocytosis 0 Basophilic Stippling 0 Anisocytosis 0 Microcytosis 0 Macrocytosis 0 Spherocytes 0 Sickle Cells 0 Target Cells 0 Tear Drop Cells 0 Ovalocytes 0 Stomatocytes 0 Helmet Cells 0 Ramirez-Gueydan Bodies 0 [place] Rings 0 [place] Cells 0 Acanthocytes (Spur) 0 Rouleaux 0 Fragmented RBCs 0 Schistocytes 0 Sodium 138 Potassium 4.2 Chloride 103 Carbon Dioxide 27 Anion Gap 7 L BUN 12 Creatinine 0.5 L Creat Clearance w eGFR > 60 Random Glucose 140 H Calcium 8.3 L Magnesium 2.4 Total Bilirubin 0.4 AST 27 ALT 62 H Alkaline Phosphatase 105 Total Protein 5.9 L Albumin 2.6 L Active Medications Generic Name Dose Route Start Last Admin Trade Name Freq PRN Reason Stop Dose Admin Acetaminophen 650 mg 08/01/18 01:53 Tylenol - PO Q4H PRN FEVER Ascorbic Acid 500 mg 08/01/18 10:00 08/04/18 10:41 Vitamin C - PO 500 mg DAILY ART Administration Aspirin 81 mg 08/01/18 10:00 08/04/18 10:41 Asa - PO 81 mg DAILY ART Administration Dexamethasone Sodium Phosphate 6 mg 08/01/18 04:00 08/04/18 12:14 Decadron Injection - IVPB 6 mg Q8H ART Administration Diphenhydramine HCl 50 mg 08/01/18 06:00 08/04/18 11:59 Benadryl Injection - IVPUSH 50 mg Q6HPO ART Administration Donepezil HCl 10 mg 08/01/18 22:00 08/03/18 21:44 Aricept - PO 10 mg HS ART Administration Heparin Sodium (Porcine) 5,000 unit 08/01/18 06:00 08/04/18 14:26 Heparin - SQ 5,000 unit TID ART Administration Dextrose 1,000 mls @ 42 mls/hr 08/01/18 01:53 08/04/18 05:59 D5w - IV Not Given ASDIR ART Vancomycin HCl 1,250 mg/ 250 mls @ 250 mls/2 hr 08/02/18 15:00 08/04/18 15:37 Dextrose IVPB 250 mls/2 hr Q24H ART Administration Protocol Piperacillin Sod/Tazobactam 50 mls @ 100 mls/hr 08/03/18 14:45 08/04/18 10:40 Sod 3.375 gm/ Dextrose IVPB 100 mls/hr Q8H-IV ART Administration Protocol Pantoprazole Sodium 40 mg 08/03/18 13:30 08/04/18 10:41 Protonix Iv IVPUSH 40 mg DAILY ART Administration Thiamine HCl 200 mg 08/01/18 10:00 08/04/18 10:00 Vitamin B1 Injection - IVPB 200 mg DAILY ART Administration Valproate Sodium 250 mg 08/01/18 10:00 08/04/18 12:00 Depacon Injection - IVPB 250 mg BID ART Administration Zinc Sulfate 220 mg 08/01/18 10:00 08/04/18 10:41 Orazinc - PO 220 mg DAILY ART Administration ASSESSMENT/PLAN: Patient is a 62 year old male with history of dementia, prior alcohol abuse, CVA 's, and hyperlipidemia. He presented to the ED with an altered mental status, poor oral intake of oral foods and fluids. Patient was reportedly on haldol and seroquel and has been more lethargic with increased muscle rigidity from [place]. ID: Acute metabolic encephalopathy of unclear etiology, resolved Likely neuroleptic malignant syndrome per neurlogy cont Benadryl, Benztropin scheduled Blood cultures and sputum cultures negative, +mrsa on sputum, started back on vancomycin. Neuro following, ID following. head ct negative. Brain mri reviewed, no acute findings Renal Hypernatremia, resolved. Neuro: Seizure Disorder h/o CVA Schizophrenia Alzheimer's Dementia On ASA 81mg antisychotics held On Valproate 250mg IV BID, Donepezil 10mg PO hs GI elevated ast/alt hx of etoh abuse on thiamine, folate, multivitamin fen no ivf monitor electrolytes on vital 1.2 ngt feeds. swallow eval Visit type - Emergency Visit Emergency Visit: Yes ED Registration Date: 07/28/18 Care time: The patient presented to the Emergency Department on the above date and was hospitalized for further evaluation of their emergent condition. - New Patient This patient is new to me today: No - Critical Care Critical Care patient: No - Discharge Referral Referred to [facility] Med P.C.: No
[2018-08-04] MEDS: DONEPEZIL HCL 10 MG TABLET (FP) PO SCH (22:16)
[2018-08-05] MEDS ORDERED: DEXTROSE 5%-WATER - 50 ML IVPB ONE ×3 (00:48→17:59)
[2018-08-05] MEDS ORDERED: PIPERACILLIN/TAZOBACTAM 3.375 GM VIAL IVPB ONE ×3 (00:48→17:59)
[2018-08-05] MEDS: PIPERACILLIN/TAZOB 3.375 GM 3.375 GM in DEXTROSE 5%-WATER - 50 ML IVPB SCH ×3 (02:14→18:13)
[2018-08-05] MEDS: DEXAMETHASONE SOD PHOSPHATE 4 MG/1 ML VIAL IVPB SCH ×3 (03:44→21:53)
[2018-08-05] MEDS: HEPARIN NA (PORCINE) 5,000 UNITS/ML 1ML VIAL SQ SCH ×3 (05:54→21:53)
[2018-08-05 09:58] LABS: BASO % 0.2 % (0-2.0); HEMATOCRIT 40.9 % (35.4-49); HEMOGLOBIN 13.6 GM/dL (11.7-16.9); LYMPH % 3.3 % (8-40); MCH 30.2 pg (25.7-33.7); MCHC 33.4 g/dl (32.0-35.9); MEAN CELL VOLUME 90.6 fl (80-96); MONO % 3.6 % (3.8-10.2); NEUT % 92.9 % (42.8-82.8); PLATELET COUNT 212 K/MM3 (134-434); RBC 4.51 M/mm3 (4.00-5.60); RDW 14.8 % (11.9-15.9); WHITE BLOOD COUNT 15.4 K/mm3 (4.0-10.0)
[2018-08-05] MEDS: PANTOPRAZOLE SODIUM 40 MG VIAL IVPUSH SCH (10:27)
[2018-08-05] MEDS: ZINC SULFATE 220 MG CAPSULE (FP) PO SCH (10:27)
[2018-08-05] MEDS: ASCORBIC ACID 500 MG TABLET (FP) PO SCH (10:27)
[2018-08-05] MEDS: ASPIRIN 81 MG CHEWABLE TABLETS PO SCH (10:27)
[2018-08-05 10:36] LABS: ALK PHOS 112 U/L (45-117); ANION GAP 10 MMOL/L (8-16); BILIRUBIN,TOTAL 0.5 mg/dL (0.2-1); BLOOD UREA NITROGEN 16 mg/dL (7-18); CALCIUM 8.8 mg/dL (8.5-10.1); CHLORIDE 104 mmol/L (98-107); CO2 23 mmol/L (21-32); CREATININE 0.6 mg/dL (0.55-1.3); GLUCOSE,RANDOM 139 mg/dL (74-106); POTASSIUM 4.3 mmol/L (3.5-5.1); SGOT/AST 23 U/L (15-37); SGPT/ALT 64 U/L (13-61); SODIUM 136 mmol/L (136-145); TOT PROT 6.7 g/dl (6.4-8.2)
--- NOTE | 2018-08-05 10:42 | PN ---
Physical Exam: SUBJECTIVE: Patient seen and examined at the bedside. more awake and alert, tolerating feeds. attempting to talk. appears comfortable. OBJECTIVE: Vital Signs Period Temp Pulse Resp BP Sys/Cortes Pulse Ox Last 24 Hr 97.4 F-98.2 F 63-84 18-18 102-155/56-98 98 GENERAL: in no acute distress. eyes open, more awake and alert. HEAD: Normal with no signs of trauma. EYES: PERRL, extraocular movements intact, sclera anicteric, conjunctiva clear. No ptosis. ENT: Ears normal, nares patent, oropharynx clear without exudates, moist mucous membranes - ngt feeds NECK: Trachea midline, full range of motion, supple. LUNGS: Breath sounds equal, clear to auscultation anteriorly HEART: Regular rate and rhythm ABDOMEN: Soft, nontender, nondistended, normoactive bowel sounds EXTREMITIES: no edema. bilateral hips with pressure associated redness, right ear with healed pressure sore, heals reddened. NEUROLOGICAL: awake and more alert, brief eye contract Laboratory Results - last 24 hr 08/04/18 08/05/18 08/05/18 07:30 09:10 09:10 WBC 15.4 H RBC 4.51 Hgb 13.6 Hct 40.9 MCV 90.6 MCH 30.2 MCHC 33.4 RDW 14.8 Plt Count 212 MPV 11.0 Absolute Neuts (auto) 14.3 H Neutrophils % 92.9 H Neutrophils % (Manual) 96.0 H Band Neutrophils % 0.0 Lymphocytes % 3.3 L Lymphocytes % (Manual) 1.0 L Monocytes % 3.6 L Monocytes % (Manual) 3 L D Eosinophils % 0.0 Eosinophils % (Manual) 0.0 Basophils % 0.2 Basophils % (Manual) 0.0 Myelocytes % (Man) 0 Promyelocytes % (Man) 0 Blast Cells % (Manual) 0 Nucleated RBC % 0 Metamyelocytes 0 Hypochromia 0 Toxic Granulation 0 Dohle Bodies 0 Platelet Estimate Normal Polychromasia 0 Poikilocytosis 0 Basophilic Stippling 0 Anisocytosis 0 Microcytosis 0 Macrocytosis 0 Spherocytes 0 Sickle Cells 0 Target Cells 0 Tear Drop Cells 0 Ovalocytes 0 Stomatocytes 0 Helmet Cells 0 [place] Bodies 0 Vincent Rings 0 Darrion Cells 0 Acanthocytes (Spur) 0 Rouleaux 0 Fragmented RBCs 0 Schistocytes 0 Sodium 136 Potassium 4.3 Chloride 104 Carbon Dioxide 23 Anion Gap 10 BUN 16 Creatinine 0.6 Creat Clearance w eGFR > 60 Random Glucose 139 H Calcium 8.8 Total Bilirubin 0.5 AST 23 ALT 64 H Alkaline Phosphatase 112 Total Protein 6.7 Albumin 3.0 L Active Medications Generic Name Dose Route Start Last Admin Trade Name Freq PRN Reason Stop Dose Admin Acetaminophen 650 mg 08/01/18 01:53 Tylenol - PO Q4H PRN FEVER Ascorbic Acid 500 mg 08/01/18 10:00 08/05/18 10:27 Vitamin C - PO 500 mg DAILY ART Administration Aspirin 81 mg 08/01/18 10:00 08/05/18 10:27 Asa - PO 81 mg DAILY ART Administration Dexamethasone Sodium Phosphate 6 mg 08/01/18 04:00 08/05/18 03:44 Decadron Injection - IVPB 6 mg Q8H ART Administration Diphenhydramine HCl 50 mg 08/01/18 06:00 08/05/18 05:54 Benadryl Injection - IVPUSH 50 mg Q6HPO ART Administration Donepezil HCl 10 mg 08/01/18 22:00 08/04/18 22:16 Aricept - PO 10 mg HS ART Administration Heparin Sodium (Porcine) 5,000 unit 08/01/18 06:00 08/05/18 05:54 Heparin - SQ 5,000 unit TID ART Administration Dextrose 1,000 mls @ 42 mls/hr 08/01/18 01:53 08/04/18 19:30 D5w - IV 42 mls/hr ASDIR ART Administration Vancomycin HCl 1,250 mg/ 250 mls @ 250 mls/2 hr 08/02/18 15:00 08/04/18 15:37 Dextrose IVPB 250 mls/2 hr Q24H ART Administration Protocol Piperacillin Sod/Tazobactam 50 mls @ 100 mls/hr 08/03/18 14:45 08/05/18 10:26 Sod 3.375 gm/ Dextrose IVPB 100 mls/hr Q8H-IV ART Administration Protocol Pantoprazole Sodium 40 mg 08/03/18 13:30 08/05/18 10:27 Protonix Iv IVPUSH 40 mg DAILY ART Administration Thiamine HCl 200 mg 08/01/18 10:00 08/04/18 10:00 Vitamin B1 Injection - IVPB 200 mg DAILY ART Administration Valproate Sodium 250 mg 08/01/18 10:00 08/04/18 22:16 Depacon Injection - IVPB 250 mg BID ART Administration Zinc Sulfate 220 mg 08/01/18 10:00 08/05/18 10:27 Orazinc - PO 220 mg DAILY ART Administration ASSESSMENT/PLAN Patient is a 62 year old male with history of dementia, prior alcohol abuse, CVA 's, and hyperlipidemia. He presented to the ED with an altered mental status, poor oral intake of oral foods and fluids. Patient was reportedly on haldol and seroquel and has been more lethargic with increased muscle rigidity from NH. ID: Acute metabolic encephalopathy, Likely neuroleptic malignant syndrome per neurology Rule out seizures, Repeat EEG pending. speech and swallow evaluation. tolerating NGT feeds mental status has improved head ct negative. Brain mri reviewed, no acute findings Mrsa pneumonia Blood cultures negative, +mrsa on sputum, started on vancomycin. ID following. Renal Hypernatremia, resolved. Neuro: Seizure Disorder h/o CVA Schizophrenia Alzheimer's Dementia On ASA 81mg On Valproate 250mg IV BID, Donepezil 10mg PO hs GI elevated ast/alt, trending down hx of etoh abuse on thiamine, folate, multivitamin fen no ivf monitor electrolytes on vital 1.2 ngt feeds. swallow eval ongoing. ngt to be removed pending swallow eval. Visit type - Emergency Visit Emergency Visit: Yes ED Registration Date: 07/28/18 Care time: The patient presented to the Emergency Department on the above date and was hospitalized for further evaluation of their emergent condition. - New Patient This patient is new to me today: No - Critical Care Critical Care patient: No - Discharge Referral Referred to [facility] Med P.C.: No
--- NOTE | 2018-08-05 11:00 | PN ---
Progress Note (short form) - Note Progress Note: 62 year old male history of Dementia, alcohol abuse, storke, HLD . [facility] and was brought to hospital as he was having mental status detioration. Compa has ct head showed cortical atrophy and found to have high grade fever and suspected to have NMS and dantrolene was given Patient has clinically improved and now afebrile . He had swallowing test done , he was able to swallow partially and clinically he has been looking better. EEG reviewed there no epileptic seizure, there is muscle artifact vs sharp waves , suggest to rpeat NEUROLOGICAL EXAMINATION VSS and febrile He is repsonding to verbal stimuli , opens eye and stare. There is rigidity in upper and lower extrmeity, appears to be less rigid than admission pupils reactive mild terminal neck stiffness( part of generalized rigidity) mri of brain is normal eeg reviewed : generalized Encephalopathy likely to be NMS and EEG showed muscle artifacts vs sharp wave, sugges to repeat Assessment/Plan 62 year old male history of alcohol abuse, dementia with behavior disturbance on two antipsychotic medicaitons ( haldol and seroquel) in [place]. He has history of seizure disorder and schizophrenia. Patient has clinically improved. advice to avoid antipsychotic mediaiton. Continue abx as per ID Repeat EEG pending , and speech to follow for swallowing. Thanking you so much Toni Heart MD
[2018-08-05] MEDS: VALPROATE SODIUM 500 MG/5 ML VIAL IVPB SCH ×2 (11:25→22:11)
[2018-08-05 11:32] LABS: ANISOCYTOSIS 2+; MACROCYTOSIS 0; OVALOCYTE 1+; PLATELET ESTIMATE NORMAL; TEAR DROP CELLS 1+
--- NOTE | 2018-08-05 12:58 | PN ---
Progress Note, GENERAL OFFICE DISPATCHER - Note Progress Note: 62 year old male history of alcohol abuse, dementia with behavior disturbance on two antipsychotic medicaitons ( haldol and seroquel) in [place]. He has history of seizure disorder and schizophrenia. Much improved TIM/Responsiveness, readily accepted puree. (-) 3 oz water test. Pt was on puree/thin at [place]. Consider: D/C NGT, Trial of Dys puree/thin liquid/Ensure Enlive Monitor toloerance
[2018-08-05] MEDS: THIAMINE HCL 200 MG/2 ML VIAL IVPB SCH (13:59)
--- NOTE | 2018-08-05 14:34 | PN ---
Progress Note, Physician History of Present Illness: stable awake and alert according to family says he is sweating wbc trending down - Current Medication List Current Medications: Active Medications Acetaminophen (Tylenol -) 650 mg PO Q4H PRN PRN Reason: FEVER Ascorbic Acid (Vitamin C -) 500 mg PO DAILY [facility] Last Admin: 08/05/18 10:27 Dose: 500 mg Aspirin (Asa -) 81 mg PO DAILY [facility] Last Admin: 08/05/18 10:27 Dose: 81 mg Dexamethasone Sodium Phosphate (Decadron Injection -) 6 mg IVPB Q8H [facility] Last Admin: 08/05/18 12:49 Dose: 6 mg Donepezil HCl (Aricept -) 10 mg PO HS [facility] Last Admin: 08/04/18 22:16 Dose: 10 mg Heparin Sodium (Porcine) (Heparin -) 5,000 unit SQ TID [facility] Last Admin: 08/05/18 14:04 Dose: 5,000 unit Vancomycin HCl 1,250 mg/ (Dextrose) 250 mls @ 250 mls/2 hr IVPB Q24H [facility]; Protocol Last Admin: 08/04/18 15:37 Dose: 250 mls/2 hr Piperacillin Sod/Tazobactam (Sod 3.375 gm/ Dextrose) 50 mls @ 100 mls/hr IVPB Q8H-IV [facility]; Protocol Last Admin: 08/05/18 10:26 Dose: 100 mls/hr Pantoprazole Sodium (Protonix Iv) 40 mg IVPUSH DAILY [facility] Last Admin: 08/05/18 10:27 Dose: 40 mg Thiamine HCl (Vitamin B1 Injection -) 200 mg IVPB DAILY [facility] Last Admin: 08/05/18 13:59 Dose: 200 mg Valproate Sodium (Depacon Injection -) 250 mg IVPB BID [facility] Last Admin: 08/05/18 11:25 Dose: 250 mg Zinc Sulfate (Orazinc -) 220 mg PO DAILY [facility] Last Admin: 08/05/18 10:27 Dose: 220 mg - Objective Vital Signs: Vital Signs Temperature 97.4 F L 08/05/18 10:00 Pulse Rate 84 08/05/18 10:00 Respiratory Rate 18 08/05/18 10:00 Blood Pressure 136/86 08/05/18 10:00 O2 Sat by Pulse Oximetry (%) 98 08/04/18 21:00 Constitutional: Yes: No Distress, Calm Cardiovascular: Yes: Regular Rate and Rhythm Respiratory: Yes: Regular, Poor Air Entry Gastrointestinal: Yes: Normal Bowel Sounds, Soft, Other (ng tube in place) Musculoskeletal: Yes: WNL Extremities: Yes: WNL Neurological: Yes: Alert, Oriented Psychiatric: Yes: Alert, Oriented Labs: CBC, BMP 08/05/18 09:10 08/05/18 09:10 INR, PTT INR 1.29 (0.83-1.09) H 07/29/18 05:15 Assessment/Plan after looking at the history and to see how the patient came with along with infection i am worried that the symptoms could be due to drugs which patient was been given for agitation also now patient is coughing and producing sputum Altered Mental Status r/o Neuroleptic Malignant Syndrome r/o Seizures Seizure Disorder h/o CVA Schizophrenia Alzheimer's Dementia drug reaction mrsa pneumonia [facility] rest as per the team close monitoring of wbc check vano trough tomorrow
[2018-08-05] MEDS: VANCOMYCIN 1,250 MG in DEXTROSE 5%-WATER - 250 ML IVPB SCH (15:09)
[2018-08-05] MEDS ORDERED: PT OWN MED DRAWER 7, Y5N ONE (20:48)
[2018-08-05] MEDS: DONEPEZIL HCL 10 MG TABLET (FP) PO SCH (21:53)
[2018-08-06] MEDS ORDERED: DEXTROSE 5%-WATER - 50 ML IVPB ONE ×3 (00:55→18:50)
[2018-08-06] MEDS ORDERED: PIPERACILLIN/TAZOBACTAM 3.375 GM VIAL IVPB ONE ×3 (00:55→18:50)
[2018-08-06] MEDS: PIPERACILLIN/TAZOB 3.375 GM 3.375 GM in DEXTROSE 5%-WATER - 50 ML IVPB SCH ×3 (02:35→18:53)
[2018-08-06] MEDS: DEXAMETHASONE SOD PHOSPHATE 4 MG/1 ML VIAL IVPB SCH ×3 (04:58→21:50)
[2018-08-06] MEDS: HEPARIN NA (PORCINE) 5,000 UNITS/ML 1ML VIAL SQ SCH ×3 (05:00→21:53)
[2018-08-06 07:58] LABS: BASO % 0.1 % (0-2.0); HEMATOCRIT 37.9 % (35.4-49); HEMOGLOBIN 13.1 GM/dL (11.7-16.9); LYMPH % 4.6 % (8-40); MCH 30.8 pg (25.7-33.7); MCHC 34.6 g/dl (32.0-35.9); MEAN CELL VOLUME 89.1 fl (80-96); MONO % 6.7 % (3.8-10.2); NEUT % 88.6 % (42.8-82.8); PLATELET COUNT 295 K/MM3 (134-434); RBC 4.25 M/mm3 (4.00-5.60); RDW 14.7 % (11.9-15.9); WHITE BLOOD COUNT 13.8 K/mm3 (4.0-10.0)
[2018-08-06] MEDS ORDERED: PT OWN MED DRAWER 7, Y5N ONE ×2 (08:28→21:14)
[2018-08-06 08:39] LABS: ALK PHOS 107 U/L (45-117); ANION GAP 9 MMOL/L (8-16); BILIRUBIN,TOTAL 0.5 mg/dL (0.2-1); BLOOD UREA NITROGEN 17 mg/dL (7-18); CALCIUM 8.7 mg/dL (8.5-10.1); CHLORIDE 102 mmol/L (98-107); CO2 25 mmol/L (21-32); CREATININE 0.6 mg/dL (0.55-1.3); GLUCOSE,RANDOM 126 mg/dL (74-106); MAGNESIUM 2.4 mg/dL (1.8-2.4); POTASSIUM 4.4 mmol/L (3.5-5.1); SGOT/AST 19 U/L (15-37); SGPT/ALT 57 U/L (13-61); SODIUM 136 mmol/L (136-145); TOT PROT 6.6 g/dl (6.4-8.2)
[2018-08-06] MEDS: ASCORBIC ACID 500 MG TABLET (FP) PO SCH (10:09)
[2018-08-06] MEDS: ZINC SULFATE 220 MG CAPSULE (FP) PO SCH (10:09)
[2018-08-06] MEDS: PANTOPRAZOLE SODIUM 40 MG VIAL IVPUSH SCH (10:10)
[2018-08-06] MEDS: ASPIRIN 81 MG CHEWABLE TABLETS PO SCH (10:10)
[2018-08-06] MEDS: VALPROATE SODIUM 500 MG/5 ML VIAL IVPB SCH ×2 (11:21→21:52)
[2018-08-06] MEDS: THIAMINE HCL 200 MG/2 ML VIAL IVPB SCH (13:22)
--- NOTE | 2018-08-06 13:48 | PN ---
Progress Note, Physician History of Present Illness: stable wbc trending down removed ng tube now on feeds - Current Medication List Current Medications: Active Medications Acetaminophen (Tylenol -) 650 mg PO Q4H PRN PRN Reason: FEVER Ascorbic Acid (Vitamin C -) 500 mg PO DAILY [facility] Last Admin: 08/06/18 10:09 Dose: 500 mg Aspirin (Asa -) 81 mg PO DAILY [facility] Last Admin: 08/06/18 10:10 Dose: 81 mg Dexamethasone Sodium Phosphate (Decadron Injection -) 6 mg IVPB Q8H [facility] Last Admin: 08/06/18 12:39 Dose: 6 mg Donepezil HCl (Aricept -) 10 mg PO HS [facility] Last Admin: 08/05/18 21:53 Dose: 10 mg Heparin Sodium (Porcine) (Heparin -) 5,000 unit SQ TID [facility] Last Admin: 08/06/18 13:21 Dose: 5,000 unit Vancomycin HCl 1,250 mg/ (Dextrose) 250 mls @ 250 mls/2 hr IVPB Q24H [facility]; Protocol Last Admin: 08/05/18 15:09 Dose: 250 mls/2 hr Piperacillin Sod/Tazobactam (Sod 3.375 gm/ Dextrose) 50 mls @ 100 mls/hr IVPB Q8H-IV [facility]; Protocol Last Admin: 08/06/18 10:17 Dose: 100 mls/hr Pantoprazole Sodium (Protonix Iv) 40 mg IVPUSH DAILY [facility] Last Admin: 08/06/18 10:10 Dose: 40 mg Thiamine HCl (Vitamin B1 Injection -) 200 mg IVPB DAILY [facility] Last Admin: 08/06/18 13:22 Dose: 200 mg Valproate Sodium (Depacon Injection -) 250 mg IVPB BID [facility] Last Admin: 08/06/18 11:21 Dose: 250 mg Zinc Sulfate (Orazinc -) 220 mg PO DAILY [facility] Last Admin: 08/06/18 10:09 Dose: 220 mg - Objective Vital Signs: Vital Signs Temperature 98.7 F 08/06/18 10:00 Pulse Rate 90 08/06/18 10:00 Respiratory Rate 18 08/06/18 10:00 Blood Pressure 156/85 08/06/18 10:00 O2 Sat by Pulse Oximetry (%) 98 08/05/18 21:00 Constitutional: Yes: No Distress, Calm Cardiovascular: Yes: Regular Rate and Rhythm Respiratory: Yes: Regular Gastrointestinal: Yes: Normal Bowel Sounds, Soft Musculoskeletal: Yes: WNL Extremities: Yes: WNL Neurological: Yes: Alert, Other Psychiatric: Yes: Alert, Other Labs: CBC, BMP 08/06/18 06:35 08/06/18 06:35 INR, PTT INR 1.29 (0.83-1.09) H 07/29/18 05:15 Assessment/Plan after looking at the history and to see how the patient came with along with infection i am worried that the symptoms could be due to drugs which patient was been given for agitation also now patient is coughing and producing sputum Altered Mental Status r/o Neuroleptic Malignant Syndrome r/o Seizures Seizure Disorder h/o CVA Schizophrenia Alzheimer's Dementia drug reaction mrsa pneumonia wbc decreasing plan continue abx' asp precautions rest a per the gonzales upright positions
[2018-08-06] MEDS: VANCOMYCIN 1,250 MG in DEXTROSE 5%-WATER - 250 ML IVPB SCH (15:43)
--- NOTE | 2018-08-06 19:55 | PN ---
Progress Note, Physician Chief Complaint: Pt admitted with neuroleptic malignant syndrome. 24HR events: -NGT d/jose. pt tolerating orals -Zosyn added on 08/05, and vancomycin continued. -pt in need of NH placement, family does not want pt to return to his previous NH. -today vanco trough 4.7, - Current Medication List Current Medications: Active Medications Acetaminophen (Tylenol -) 650 mg PO Q4H PRN PRN Reason: FEVER Ascorbic Acid (Vitamin C -) 500 mg PO DAILY [facility] Last Admin: 08/06/18 10:09 Dose: 500 mg Aspirin (Asa -) 81 mg PO DAILY [facility] Last Admin: 08/06/18 10:10 Dose: 81 mg Dexamethasone Sodium Phosphate (Decadron Injection -) 6 mg IVPB Q8H [facility] Last Admin: 08/06/18 12:39 Dose: 6 mg Donepezil HCl (Aricept -) 10 mg PO HS [facility] Last Admin: 08/05/18 21:53 Dose: 10 mg Heparin Sodium (Porcine) (Heparin -) 5,000 unit SQ TID [facility] Last Admin: 08/06/18 13:21 Dose: 5,000 unit Vancomycin HCl 1,250 mg/ (Dextrose) 250 mls @ 250 mls/2 hr IVPB Q24H [facility]; Protocol Last Admin: 08/06/18 15:43 Dose: 250 mls/2 hr Piperacillin Sod/Tazobactam (Sod 3.375 gm/ Dextrose) 50 mls @ 100 mls/hr IVPB Q8H-IV [facility]; Protocol Last Admin: 08/06/18 18:53 Dose: 100 mls/hr Pantoprazole Sodium (Protonix Iv) 40 mg IVPUSH DAILY [facility] Last Admin: 08/06/18 10:10 Dose: 40 mg Thiamine HCl (Vitamin B1 Injection -) 200 mg IVPB DAILY [facility] Last Admin: 08/06/18 13:22 Dose: 200 mg Valproate Sodium (Depacon Injection -) 250 mg IVPB BID [facility] Last Admin: 08/06/18 11:21 Dose: 250 mg Zinc Sulfate (Orazinc -) 220 mg PO DAILY [facility] Last Admin: 08/06/18 10:09 Dose: 220 mg - Objective Vital Signs: Vital Signs Temperature 98 F 08/06/18 14:43 Pulse Rate 87 08/06/18 14:43 Respiratory Rate 18 08/06/18 14:43 Blood Pressure 141/67 08/06/18 14:43 O2 Sat by Pulse Oximetry (%) 98 08/06/18 09:00 Constitutional: Yes: No Distress, Calm Eyes: Yes: Conjunctiva Clear HENT: Yes: Atraumatic, Normocephalic Neck: Yes: Supple Cardiovascular: Yes: Regular Rate and Rhythm Respiratory: Yes: Regular Gastrointestinal: Yes: Normal Bowel Sounds, Soft ...Rectal Exam: Yes: Deferred Musculoskeletal: Yes: Joint Stiffness, Muscle Pain, Muscle Weakness Extremities: Yes: Other (legs are contracted, in addition to fingers on both hands) Edema: No Peripheral Pulses WNL: Yes Peripheral Pulses: Left Radial: 2+, Right Radial: 2+ Neurological: Yes: Alert ...Motor Strength: LUE, LLE, RUE, RLE (strength decreased in all four extremities) Psychiatric: Yes: Alert Labs: CBC, BMP 08/06/18 06:35 08/06/18 06:35 INR, PTT INR 1.29 (0.83-1.09) H 07/29/18 05:15 Problem List - Problems (1) PNA (pneumonia) Assessment/Plan: continue vanco/zosyn for 5day course monitor for aspiration PNA Code(s): J18.9 - PNEUMONIA, UNSPECIFIED ORGANISM (2) Neuroleptic malignant syndrome Assessment/Plan: depakote 250mg BID symptoms have significantly improved. SW will arrange placement to [facility]. Code(s): G21.0 - MALIGNANT NEUROLEPTIC SYNDROME Impression/Plan Impression/Plan: DISPO:transfer to [facility]itentiary care facility once placement is obtained. PPX ASA 81mg daily Dementia: aricept 10mg qhs GI: PPI daily Full code Visit type - Emergency Visit Emergency Visit: Yes ED Registration Date: 07/28/18 Care time: The patient presented to the Emergency Department on the above date and was hospitalized for further evaluation of their emergent condition. - New Patient This patient is new to me today: Yes Date on this admission: 08/06/18 - Critical Care Critical Care patient: No - Discharge Referral Referred to [facility] Med P.C.: No
[2018-08-06] MEDS: DONEPEZIL HCL 10 MG TABLET (FP) PO SCH (21:51)
[2018-08-07] MEDS ORDERED: DEXTROSE 5%-WATER - 50 ML IVPB ONE ×2 (00:56→09:15)
[2018-08-07] MEDS ORDERED: PIPERACILLIN/TAZOBACTAM 3.375 GM VIAL IVPB ONE ×2 (00:56→09:15)
[2018-08-07] MEDS: PIPERACILLIN/TAZOB 3.375 GM 3.375 GM in DEXTROSE 5%-WATER - 50 ML IVPB SCH ×2 (02:35→09:35)
[2018-08-07] MEDS: DEXAMETHASONE SOD PHOSPHATE 4 MG/1 ML VIAL IVPB SCH ×3 (05:13→20:00)
[2018-08-07] MEDS: HEPARIN NA (PORCINE) 5,000 UNITS/ML 1ML VIAL SQ SCH ×3 (05:14→22:27)
[2018-08-07] MEDS: ASCORBIC ACID 500 MG TABLET (FP) PO SCH (09:27)
[2018-08-07] MEDS: ASPIRIN 81 MG CHEWABLE TABLETS PO SCH (09:27)
[2018-08-07] MEDS: ZINC SULFATE 220 MG CAPSULE (FP) PO SCH (09:27)
[2018-08-07] MEDS: PANTOPRAZOLE SODIUM 40 MG VIAL IVPUSH SCH (09:27)
[2018-08-07 09:29] LABS: BASO % 0.1 % (0-2.0); HEMOGLOBIN 13.4 GM/dL (11.7-16.9); LYMPH % 3.7 % (8-40); MCH 30.8 pg (25.7-33.7); MCHC 34.4 g/dl (32.0-35.9); MEAN CELL VOLUME 89.5 fl (80-96); MEAN PLT VOLUME 10.2 fl (7.5-11.1); MONO % 5.6 % (3.8-10.2); NEUT % 90.6 % (42.8-82.8); PLATELET COUNT 320 K/MM3 (134-434); RBC 4.35 M/mm3 (4.00-5.60); WHITE BLOOD COUNT 14.5 K/mm3 (4.0-10.0)
[2018-08-07 10:13] LABS: ANION GAP 7 MMOL/L (8-16); BLOOD UREA NITROGEN 17 mg/dL (7-18); CALCIUM 9.5 mg/dL (8.5-10.1); CHLORIDE 102 mmol/L (98-107); CO2 26 mmol/L (21-32); CREATININE 0.6 mg/dL (0.55-1.3); GLUCOSE,RANDOM 127 mg/dL (74-106); MAGNESIUM 2.3 mg/dL (1.8-2.4); PHOSPHOROUS 3.8 mg/dL (2.5-4.9); POTASSIUM 4.5 mmol/L (3.5-5.1); SODIUM 136 mmol/L (136-145)
--- NOTE | 2018-08-07 10:17 | PN ---
Progress Note, Physician History of Present Illness: clinically patient looks stable wbc has increased patient eating orally - Current Medication List Current Medications: Active Medications Acetaminophen (Tylenol -) 650 mg PO Q4H PRN PRN Reason: FEVER Ascorbic Acid (Vitamin C -) 500 mg PO DAILY [facility] Last Admin: 08/07/18 09:27 Dose: 500 mg Aspirin (Asa -) 81 mg PO DAILY [facility] Last Admin: 08/07/18 09:27 Dose: 81 mg Dexamethasone Sodium Phosphate (Decadron Injection -) 6 mg IVPB Q8H [facility] Last Admin: 08/07/18 05:13 Dose: 6 mg Donepezil HCl (Aricept -) 10 mg PO HS [facility] Last Admin: 08/06/18 21:51 Dose: 10 mg Heparin Sodium (Porcine) (Heparin -) 5,000 unit SQ TID [facility] Last Admin: 08/07/18 05:14 Dose: 5,000 unit Vancomycin HCl 1,250 mg/ (Dextrose) 250 mls @ 250 mls/2 hr IVPB Q24H [facility]; Protocol Last Admin: 08/06/18 15:43 Dose: 250 mls/2 hr Piperacillin Sod/Tazobactam (Sod 3.375 gm/ Dextrose) 50 mls @ 100 mls/hr IVPB Q8H-IV [facility]; Protocol Last Admin: 08/07/18 09:35 Dose: 100 mls/hr Pantoprazole Sodium (Protonix Iv) 40 mg IVPUSH DAILY [facility] Last Admin: 08/07/18 09:27 Dose: 40 mg Thiamine HCl (Vitamin B1 Injection -) 200 mg IVPB DAILY [facility] Last Admin: 08/06/18 13:22 Dose: 200 mg Valproate Sodium (Depacon Injection -) 250 mg IVPB BID [facility] Last Admin: 08/06/18 21:52 Dose: 250 mg Zinc Sulfate (Orazinc -) 220 mg PO DAILY [facility] Last Admin: 08/07/18 09:27 Dose: 220 mg - Objective Vital Signs: Vital Signs Temperature 98.3 F 08/07/18 06:00 Pulse Rate 79 08/07/18 06:00 Respiratory Rate 18 08/07/18 06:00 Blood Pressure 135/76 08/07/18 06:00 O2 Sat by Pulse Oximetry (%) 98 08/06/18 21:00 Constitutional: Yes: No Distress, Calm Cardiovascular: Yes: Regular Rate and Rhythm Respiratory: Yes: Regular, CTA Bilaterally Gastrointestinal: Yes: Normal Bowel Sounds, Soft Musculoskeletal: Yes: WNL Extremities: Yes: WNL Neurological: Yes: Alert, Other Psychiatric: Yes: Other Labs: CBC, BMP 08/07/18 08:48 08/07/18 08:48 INR, PTT INR 1.29 (0.83-1.09) H 07/29/18 05:15 Assessment/Plan after looking at the history and to see how the patient came with along with infection i am worried that the symptoms could be due to drugs which patient was been given for agitation also now patient is coughing and producing sputum Altered Mental Status r/o Neuroleptic Malignant Syndrome r/o Seizures Seizure Disorder h/o CVA Schizophrenia Alzheimer's Dementia drug reaction mrsa pneumonia wbc decreasing plan will switch to oral doxy will switch to augmentin monitor wbc aspiration precautions if wbc increases then abx need to e monitored
[2018-08-07] MEDS ORDERED: PT OWN MED DRAWER 7, Y5N ONE (11:16)
--- NOTE | 2018-08-07 12:00 | PN ---
Progress Note, FINANCE CONTROLLER - Note Progress Note: Selected Entries 08/07/18 08/07/18 08/07/18 02:00 06:00 11:34 Breakfast 50% Temperature 98.2 F 98.3 F Laboratory Tests 08/05/18 08/06/18 08/07/18 09:10 06:35 08:48 WBC 15.4 H 13.8 H 14.5 H WBC noted. CXR (-) Swallow reassessed. Brisk swallow, able to tolerate puree/thin liquid without overt signs of aspiration demonstrated.
[2018-08-07] MEDS: VALPROATE SODIUM 500 MG/5 ML VIAL IVPB SCH (12:12)
[2018-08-07] MEDS: THIAMINE HCL 200 MG/2 ML VIAL IVPB SCH (14:15)
[2018-08-07] MEDS: AMOX TR/POT CLAV 875MG/125MG TABLETS (FP) PO SCH (17:42)
[2018-08-07] MEDS: DOXYCYCLINE HYCLATE 100 MG CAPSULE PO SCH (17:42)
--- NOTE | 2018-08-07 20:58 | PN ---
Progress Note, Physician History of Present Illness: 24 HR EVENTS: - pt being fed by mouth -slight increase in WBC -Discussed option of PEG with family (2 sisters) to decrease aspiration events They are amenable but appear to need more time before arriving at a final decision. -pt seen by language pathologist: conclusion was pt able to tolerate puree/thin liquid without overt signs of aspiration demonstrated. -IV abx switched to oral dosing in preparation for discharge. - Current Medication List Current Medications: Active Medications Acetaminophen (Tylenol -) 650 mg PO Q4H PRN PRN Reason: FEVER Amoxicillin/Clavulanate Potassium (Augmentin - 875mg Tablet) 1 tab PO BID@0800, 1730 [facility] Last Admin: 08/07/18 17:42 Dose: 1 tab Ascorbic Acid (Vitamin C -) 500 mg PO DAILY [facility] Last Admin: 08/07/18 09:27 Dose: 500 mg Aspirin (Asa -) 81 mg PO DAILY [facility] Last Admin: 08/07/18 09:27 Dose: 81 mg Dexamethasone Sodium Phosphate (Decadron Injection -) 6 mg IVPB Q8H [facility] Last Admin: 08/07/18 20:00 Dose: 6 mg Donepezil HCl (Aricept -) 10 mg PO HS [facility] Last Admin: 08/06/18 21:51 Dose: 10 mg Doxycycline Hyclate (Vibramycin -) 100 mg PO BID@1000,1800 [facility] Last Admin: 08/07/18 17:42 Dose: 100 mg Heparin Sodium (Porcine) (Heparin -) 5,000 unit SQ TID [facility] Last Admin: 08/07/18 14:56 Dose: 5,000 unit Pantoprazole Sodium (Protonix Iv) 40 mg IVPUSH DAILY [facility] Last Admin: 08/07/18 09:27 Dose: 40 mg Thiamine HCl (Vitamin B1 Injection -) 200 mg IVPB DAILY [facility] Last Admin: 08/07/18 14:15 Dose: 200 mg Valproate Sodium (Depacon Injection -) 250 mg IVPB BID [facility] Last Admin: 08/07/18 12:12 Dose: 250 mg Zinc Sulfate (Orazinc -) 220 mg PO DAILY@0800 [facility] - Objective Vital Signs: Vital Signs Temperature 99.6 F 08/07/18 18:45 Pulse Rate 89 08/07/18 18:45 Respiratory Rate 18 08/07/18 18:45 Blood Pressure 155/81 08/07/18 18:45 O2 Sat by Pulse Oximetry (%) 98 08/07/18 09:00 Constitutional: Yes: Calm Eyes: Yes: Conjunctiva Clear HENT: Yes: Atraumatic, Normocephalic Neck: Yes: Supple Cardiovascular: Yes: Regular Rate and Rhythm Respiratory: Yes: Regular, Diminished Gastrointestinal: Yes: Normal Bowel Sounds, Soft ...Rectal Exam: Yes: Deferred Musculoskeletal: Yes: Joint Stiffness, Muscle Weakness Extremities: Yes: Other (contracted) Edema: No Peripheral Pulses WNL: Yes Peripheral Pulses: Left Radial: 2+, Right Radial: 2+ Integumentary: Yes: WNL Neurological: Yes: Lethargy, Weakness ...Motor Strength: LUE (motor strength decreased in all four extremities), LLE, RUE, RLE Psychiatric: Yes: Other (non-verbal) Labs: CBC, BMP 08/07/18 08:48 08/07/18 08:48 INR, PTT INR 1.29 (0.83-1.09) H 07/29/18 05:15 Problem List - Problems (1) PNA (pneumonia) Assessment/Plan: pt transitioned to doxy and augmentin from [facility] monitor for aspiration PNA Code(s): J18.9 - PNEUMONIA, UNSPECIFIED ORGANISM (2) Neuroleptic malignant syndrome Assessment/Plan: depakote 250mg BID symptoms have significantly improved. pt to be discharged to [place] with oral decadron taper Code(s): G21.0 - MALIGNANT NEUROLEPTIC SYNDROME Impression/Plan Impression/Plan: DISPO:transfer to [place] in the morning, pt has [facility] [place] [facility] supplements to oral dosing PPX ASA 81mg daily Dementia: aricept 10mg qhs GI: PPI daily Full code Visit type - Emergency Visit Emergency Visit: Yes ED Registration Date: 07/28/18 Care time: The patient presented to the Emergency Department on the above date and was hospitalized for further evaluation of their emergent condition. - New Patient This patient is new to me today: No - Critical Care Critical Care patient: No - Discharge Referral Referred to [facility] Med P.C.: No
[2018-08-07] MEDS ORDERED: PANTOPRAZOLE SOD 40 MG SUSPENSION PACKET PO ONE (21:04)
[2018-08-07] MEDS ORDERED: DIVALPROEX SODIUM 250 MG TABLET E.C. PO SCH (22:00)
[2018-08-07] MEDS: THIAMINE HCL 100 MG TABLET (FP) PO SCH (22:27)
[2018-08-07] MEDS: DONEPEZIL HCL 10 MG TABLET (FP) PO SCH (22:28)
[2018-08-08] MEDS: DEXAMETHASONE SOD PHOSPHATE 4 MG/1 ML VIAL IVPB SCH (03:26)
[2018-08-08] MEDS ORDERED: PT OWN MED DRAWER 7, Y5N ONE (07:42)
[2018-08-08] MEDS: AMOX TR/POT CLAV 875MG/125MG TABLETS (FP) PO SCH (08:15)
[2018-08-08] MEDS: ZINC SULFATE 220 MG CAPSULE (FP) PO SCH (08:25)
[2018-08-08] MEDS: ASPIRIN 81 MG CHEWABLE TABLETS PO SCH (09:05)
[2018-08-08] MEDS: DOXYCYCLINE HYCLATE 100 MG CAPSULE PO SCH (09:06)
[2018-08-08] MEDS: ASCORBIC ACID 500 MG TABLET (FP) PO SCH (09:06)
--- NOTE | 2018-08-08 11:25 | PN ---
Physical Exam: SUBJECTIVE: Patient seen and examined - pt being fed by mouth -slight increase in WBC -Discussed option of PEG with family (2 sisters) to decrease aspiration events They are amenable but appear to need more time before arriving at a final decision. -pt seen by language pathologist: conclusion was pt able to tolerate puree/thin liquid without overt signs of aspiration demonstrated. -IV abx switched to oral dosing in preparation for discharge. OBJECTIVE: Vital Signs Period Temp Pulse Resp BP Sys/Cortes Pulse Ox Last 24 Hr 99.0 F-99.6 F 85-89 18-18 123-155/81-92 98 GENERAL: The patient is awake, alert, and fully oriented, in no acute distress. HEAD: Normal with no signs of trauma. EYES: PERRL, extraocular movements intact, sclera anicteric, conjunctiva clear. No ptosis. ENT: Ears normal, nares patent, oropharynx clear without exudates, moist mucous membranes. NECK: Trachea midline, full range of motion, supple. LUNGS: Breath sounds equal, clear to auscultation bilaterally, no wheezes, no crackles, no accessory muscle use. HEART: Regular rate and rhythm, S1, S2 without murmur, rub or gallop. ABDOMEN: Soft, nontender, nondistended, normoactive bowel sounds, no guarding, no rebound, no hepatosplenomegaly, no masses. EXTREMITIES: 2+ pulses, warm, well-perfused, no edema. NEUROLOGICAL: Cranial nerves II through XII grossly intact. Non verbal gait not observed. PSYCH: Not agitated, at his baseline.. SKIN: Warm, dry, normal turgor, no rashes or lesions noted Active Medications Generic Name Dose Route Start Last Admin Trade Name Freq PRN Reason Stop Dose Admin Acetaminophen 650 mg 08/01/18 01:53 Tylenol - PO Q4H PRN FEVER Amoxicillin/Clavulanate Potassium 1 tab 08/07/18 17:30 08/08/18 08:15 Augmentin - 875mg Tablet PO 1 tab BID@0800,1730 ART Administration Ascorbic Acid 500 mg 08/01/18 10:00 08/08/18 09:06 Vitamin C - PO 500 mg DAILY ART Administration Aspirin 81 mg 08/01/18 10:00 08/08/18 09:05 Asa - PO 81 mg DAILY ART Administration Donepezil HCl 10 mg 08/01/18 22:00 08/07/18 22:28 Aricept - PO 10 mg HS ART Administration Doxycycline Hyclate 100 mg 08/07/18 18:00 08/08/18 09:06 Vibramycin - PO 100 mg BID@1000,1800 ART Administration Heparin Sodium (Porcine) 5,000 unit 08/08/18 14:00 Heparin - SQ TID ART Prednisone 60 mg 08/08/18 10:00 Deltasone - PO DAILY ART Thiamine HCl 100 mg 08/07/18 22:00 08/07/18 22:27 Vitamin B1 - PO 100 mg HS ART Administration Valproate Sodium 250 mg 08/08/18 10:00 Depakene - PO BID ART Zinc Sulfate 220 mg 08/07/18 10:42 08/08/18 08:25 Orazinc - PO 220 mg DAILY@0800 ART Administration ASSESSMENT/PLAN: (1) PNA (pneumonia) pt transitioned to doxy and augmentin from vanco/Zosyn monitor for aspiration PNA (2) Neuroleptic malignant syndrome depakote 250mg BID symptoms have significantly improved. 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 -d/c mittens -transition IV supplements to oral dosing PPX ASA 81mg daily Dementia: aricept 10mg qhs GI: PPI daily Full code Visit type - Emergency Visit Emergency Visit: Yes ED Registration Date: 07/28/18 Care time: The patient presented to the Emergency Department on the above date and was hospitalized for further evaluation of their emergent condition. - New Patient This patient is new to me today: Yes Date on this admission: 08/08/18 - Critical Care Critical Care patient: No - Discharge Referral Referred to [facility] Med P.C.: No
[2018-08-08] MEDS: predniSONE 20 MG TABLET (UD) PO SCH (12:06)
[2018-08-08] MEDS: VALPROATE SODIUM 250 MG/5 ML UNIT DOSE CUP PO SCH ×2 (12:06→22:14)
--- NOTE | 2018-08-08 12:45 | PN ---
Progress Note, EPITAXIAL REACTOR TECHNICIAN - Note Progress Note: Selected Entries 08/07/18 08/07/18 08/07/18 02:00 06:00 11:34 Breakfast 50% Lunch Supper Temperature 98.2 F 98.3 F 08/07/18 08/07/18 08/08/18 13:46 18:45 02:00 Breakfast Lunch 50% Supper 50% Temperature 99.2 F 99.6 F 99.0 F 08/08/18 11:55 Breakfast 50% Lunch Supper Temperature Laboratory Tests 08/05/18 08/06/18 08/07/18 09:10 06:35 08:48 WBC 15.4 H 13.8 H 14.5 H Pt's sister reports that sometimes his mouth is full and he wont swallow. Pt tolerating puree and thin liquids. Educated sister on feeding pt slowly, single sips/1/2 tsn puree at a time, waiting for the swallow reflex beforept relaxes lips and allows more. Suggest: Defer peg. Puree/thin liquids with compensatory strategies. Continue swallowing tx at SNF
--- NOTE | 2018-08-08 13:50 | PN ---
Progress Note, Physician History of Present Illness: Pt seen and examined, events noted. at bedside states that he appears slightly more lethargic today. Temp currently 100.5F. No acute distress noted. - Current Medication List Current Medications: Active Medications Acetaminophen (Tylenol -) 650 mg PO Q4H PRN PRN Reason: FEVER Amoxicillin/Clavulanate Potassium (Augmentin - 875mg Tablet) 1 tab PO BID@0800, 1730 [facility] Last Admin: 08/08/18 08:15 Dose: 1 tab Ascorbic Acid (Vitamin C -) 500 mg PO DAILY [facility] Last Admin: 08/08/18 09:06 Dose: 500 mg Aspirin (Asa -) 81 mg PO DAILY [facility] Last Admin: 08/08/18 09:05 Dose: 81 mg Donepezil HCl (Aricept -) 10 mg PO HS [facility] Last Admin: 08/07/18 22:28 Dose: 10 mg Doxycycline Hyclate (Vibramycin -) 100 mg PO BID@1000,1800 [facility] Last Admin: 08/08/18 09:06 Dose: 100 mg Heparin Sodium (Porcine) (Heparin -) 5,000 unit SQ TID [facility] Prednisone (Deltasone -) 60 mg PO DAILY [facility] Last Admin: 08/08/18 12:06 Dose: 60 mg Thiamine HCl (Vitamin B1 -) 100 mg PO HS [facility] Last Admin: 08/07/18 22:27 Dose: 100 mg Valproate Sodium (Depakene -) 250 mg PO BID [facility] Last Admin: 08/08/18 12:06 Dose: 250 mg Zinc Sulfate (Orazinc -) 220 mg PO DAILY@0800 [facility] Last Admin: 08/08/18 08:25 Dose: 220 mg - Objective Vital Signs: Vital Signs Temperature 99.0 F 08/08/18 02:00 Pulse Rate 88 08/08/18 02:00 Respiratory Rate 18 08/08/18 02:00 Blood Pressure 123/82 08/08/18 02:00 O2 Sat by Pulse Oximetry (%) 98 08/07/18 21:00 Constitutional: Yes: No Distress Eyes: Yes: Conjunctiva Clear Cardiovascular: Yes: Regular Rate and Rhythm Respiratory: Yes: Other (poor inspiratory effort, no wheeze/rhonchi audible) Gastrointestinal: Yes: Normal Bowel Sounds, Soft Extremities: Yes: Other (contracted) Neurological: Yes: Lethargy Labs: CBC, BMP 08/07/18 08:48 08/07/18 08:48 INR, PTT INR 1.29 (0.83-1.09) H 07/29/18 05:15 - ....Imaging Chest X-ray: Report Reviewed Problem List - Problems (1) PNA (pneumonia) Code(s): J18.9 - PNEUMONIA, UNSPECIFIED ORGANISM Assessment/Plan PNA Alzheimers dementia Schizophrenia r/o neuroleptic malignant syndrom r/o seizure d.o. -- Pt with low grade fever today leukocytosis, on steroids -- will restart IV antibiotics -- repeat cbc -- suspect recurrent aspiration, family leaning towards GT placement monitor closely
[2018-08-08] MEDS ORDERED: PIPERACILLIN/TAZOB 3.375 GM 3.375 GM in DEXTROSE 5%-WATER - 50 ML IVPB SCH (14:00)
[2018-08-08] MEDS ORDERED: PIPERACILLIN/TAZOBACTAM 3.375 GM VIAL IVPB ONE ×2 (14:24→20:20)
[2018-08-08] MEDS ORDERED: DEXTROSE 5%-WATER - 50 ML IVPB ONE ×2 (14:24→20:20)
[2018-08-08] MEDS: PIPERACILLIN/TAZOB 3.375 GM 3.375 GM in DEXTROSE 5%-WATER - 50 ML IVPB SCH ×2 (14:40→20:31)
[2018-08-08] MEDS: HEPARIN NA (PORCINE) 5,000 UNITS/ML 1ML VIAL SQ SCH ×2 (14:42→22:15)
[2018-08-08] MEDS: VANCOMYCIN 1 GRAM (PRE-DOCKED) 1,000 MG/250 ML BAG IVPB SCH (15:16)
[2018-08-08 16:29] LABS: BASO % 0.2 % (0-2.0); HEMATOCRIT 39.9 % (35.4-49); HEMOGLOBIN 13.5 GM/dL (11.7-16.9); LYMPH % 3.8 % (8-40); MCH 30.6 pg (25.7-33.7); MCHC 33.8 g/dl (32.0-35.9); MEAN CELL VOLUME 90.7 fl (80-96); MEAN PLT VOLUME 9.9 fl (7.5-11.1); MONO % 5.4 % (3.8-10.2); NEUT % 90.6 % (42.8-82.8); PLATELET COUNT 341 K/MM3 (134-434); RDW 15.6 % (11.9-15.9); WHITE BLOOD COUNT 14.4 K/mm3 (4.0-10.0)
[2018-08-08] MEDS: THIAMINE HCL 100 MG TABLET (FP) PO SCH (22:15)
[2018-08-08] MEDS: DONEPEZIL HCL 10 MG TABLET (FP) PO SCH (22:15)
[2018-08-09] MEDS ORDERED: PIPERACILLIN/TAZOBACTAM 3.375 GM VIAL IVPB ONE ×3 (01:20→16:47)
[2018-08-09] MEDS ORDERED: DEXTROSE 5%-WATER - 50 ML IVPB ONE ×3 (01:20→16:47)
[2018-08-09] MEDS: PIPERACILLIN/TAZOB 3.375 GM 3.375 GM in DEXTROSE 5%-WATER - 50 ML IVPB SCH ×3 (01:47→18:16)
[2018-08-09] MEDS: VANCOMYCIN 1 GRAM (PRE-DOCKED) 1,000 MG/250 ML BAG IVPB SCH ×2 (02:08→17:01)
[2018-08-09] MEDS: HEPARIN NA (PORCINE) 5,000 UNITS/ML 1ML VIAL SQ SCH ×3 (05:17→22:59)
[2018-08-09] MEDS ORDERED: SODIUM CHLORIDE 1,000 ML IV SCH (05:45)
[2018-08-09] MEDS ORDERED: ACETAMINOPHEN 1000 MG/100 ML VIAL (NON FORMULARY) IVPB ONE (06:26)
[2018-08-09] MEDS ORDERED: PT OWN MED DRAWER 7, Y5N ONE (11:38)
[2018-08-09] MEDS: VALPROATE SODIUM 250 MG/5 ML UNIT DOSE CUP PO SCH ×2 (11:51→22:58)
[2018-08-09] MEDS: ZINC SULFATE 220 MG CAPSULE (FP) PO SCH (11:51)
[2018-08-09] MEDS: ASPIRIN 81 MG CHEWABLE TABLETS PO SCH (11:51)
[2018-08-09] MEDS: predniSONE 20 MG TABLET (UD) PO SCH (11:52)
[2018-08-09] MEDS: ASCORBIC ACID 500 MG TABLET (FP) PO SCH (11:52)
--- NOTE | 2018-08-09 12:59 | PN ---
Progress Note, Physician History of Present Illness: events noted from yesterday awake still with low grade fever abx were restarted - Current Medication List Current Medications: Active Medications Acetaminophen (Tylenol -) 650 mg PO Q4H PRN PRN Reason: FEVER Ascorbic Acid (Vitamin C -) 500 mg PO DAILY [facility] Last Admin: 08/09/18 11:52 Dose: 500 mg Aspirin (Asa -) 81 mg PO DAILY [facility] Last Admin: 08/09/18 11:51 Dose: 81 mg Donepezil HCl (Aricept -) 10 mg PO HS [facility] Last Admin: 08/08/18 22:15 Dose: 10 mg Heparin Sodium (Porcine) (Heparin -) 5,000 unit SQ TID [facility] Last Admin: 08/09/18 05:17 Dose: 5,000 unit Vancomycin HCl (Vancomycin (Pre-Docked)) 1,000 mg in 250 mls @ 166.667 mls/hr IVPB Q12H [facility]; Protocol Last Admin: 08/09/18 02:08 Dose: 166.667 mls/hr Piperacillin Sod/Tazobactam (Sod 3.375 gm/ Dextrose) 50 mls @ 100 mls/hr IVPB Q8H-IV [facility]; Protocol Last Admin: 08/09/18 11:50 Dose: 100 mls/hr Dextrose/Sodium Chloride (D5-1/2ns -) 1,000 mls @ 100 mls/hr IV ASDIR [facility] Stop: 08/10/18 10:00 Prednisone (Deltasone -) 60 mg PO DAILY [facility] Last Admin: 08/09/18 11:52 Dose: 60 mg Thiamine HCl (Vitamin B1 -) 100 mg PO HS [facility] Last Admin: 08/08/18 22:15 Dose: 100 mg Valproate Sodium (Depakene -) 250 mg PO BID [facility] Last Admin: 08/09/18 11:51 Dose: 250 mg Zinc Sulfate (Orazinc -) 220 mg PO DAILY@0800 [facility] Last Admin: 08/09/18 11:51 Dose: 220 mg - Objective Vital Signs: Vital Signs Temperature 100.2 F H 08/09/18 08:56 Pulse Rate 112 H 08/09/18 08:56 Respiratory Rate 20 08/09/18 08:56 Blood Pressure 141/92 08/09/18 08:56 O2 Sat by Pulse Oximetry (%) 97 08/08/18 21:00 Constitutional: Yes: No Distress, Calm Cardiovascular: Yes: Regular Rate and Rhythm Respiratory: Yes: Regular, Poor Air Entry Gastrointestinal: Yes: Normal Bowel Sounds, Soft Musculoskeletal: Yes: WNL Extremities: Yes: WNL Neurological: Yes: Alert, Other Labs: CBC, BMP 08/08/18 16:19 08/07/18 08:48 INR, PTT INR 1.29 (0.83-1.09) H 07/29/18 05:15 Assessment/Plan after looking at the history and to see how the patient came with along with infection i am worried that the symptoms could be due to drugs which patient was been given for agitation also now patient is coughing and producing sputum Altered Mental Status r/o Neuroleptic Malignant Syndrome r/o Seizures Seizure Disorder h/o CVA Schizophrenia Alzheimer's Dementia drug reaction mrsa pneumonia wbc decreasing plan continue current abx asp precautions rest as per the team follow trough
[2018-08-09] MEDS ORDERED: DEXTROSE 5%-0.45% SALINE 1,000 ML IV SCH (13:00)
--- NOTE | 2018-08-09 13:30 | PN ---
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 Cough noted, suspected sec tpillage of retained airway into phaynx with aspiration risk. When oral seal was broken, and pt suctioned, lips relaxed. With repeat trials, pt readily accepted single sips of juice puree made by family and ensure.Swallow was brisk without overt signs of aspiration. Upon reassessment, he continues to hold puree in his mouth. He has had a fever, likely which results in oral holding sec to encephalopathy. REC: For now, continue oral liquids, eg Ensure plus, Single sips, wait for swallow before next sip If lips tightly closed, suction oral cavity, r/o oral pooling hold pureed food for now Try to crush meds finely or provide i liquid form, mixed with sweet liquid eg maple syrup, cranberry, oj Consider PEG for supplemental nutrition, hydration, meds. MBS may be beneficial to r/o aspiration in order to continue thin liquids by mouth eg Ensure.
[2018-08-09 14:17] LABS: BASO % 0.1 % (0-2.0); HEMATOCRIT 42.7 % (35.4-49); HEMOGLOBIN 14.1 GM/dL (11.7-16.9); LYMPH % 6.6 % (8-40); MCH 30.3 pg (25.7-33.7); MCHC 33.1 g/dl (32.0-35.9); MEAN CELL VOLUME 91.7 fl (80-96); MEAN PLT VOLUME 9.6 fl (7.5-11.1); MONO % 8.3 % (3.8-10.2); PLATELET COUNT 321 K/MM3 (134-434); RBC 4.66 M/mm3 (4.00-5.60); RDW 15.2 % (11.9-15.9); WHITE BLOOD COUNT 14.8 K/mm3 (4.0-10.0)
[2018-08-09 14:47] LABS: ANION GAP 11 MMOL/L (8-16); BLOOD UREA NITROGEN 23 mg/dL (7-18); CALCIUM 9.1 mg/dL (8.5-10.1); CHLORIDE 104 mmol/L (98-107); CO2 23 mmol/L (21-32); GLUCOSE,RANDOM 172 mg/dL (74-106); MAGNESIUM 2.3 mg/dL (1.8-2.4); PHOSPHOROUS 4.3 mg/dL (2.5-4.9); POTASSIUM 3.9 mmol/L (3.5-5.1); SODIUM 138 mmol/L (136-145)
--- NOTE | 2018-08-09 17:21 | PN ---
Physical Exam: SUBJECTIVE: Patient seen and examined, he is not responsive at this time.he has been spiking fever since yesterday and antibiotics changed back to Iv from Po. OBJECTIVE: He does not look to be in distress, not tachypnic but is diaphoretic. Vital Signs Period Temp Pulse Resp BP Sys/Cortes Pulse Ox Last 24 Hr 99 F-101.2 F 86-112 18-20 117-141/78-92 97 GENERAL: The patient is non responsive, has spontaneous opening of his eyes but does not follow commands. HEAD: Normal with no signs of trauma. EYES: PERRL, extraocular movements intact, sclera anicteric, conjunctiva clear. No ptosis. ENT: Ears normal, nares patent, oropharynx clear without exudates, moist mucous membranes. NECK: Trachea midline, full range of motion, supple. LUNGS: Breath sounds equal, clear to auscultation bilaterally, no wheezes, no crackles, no accessory muscle use. HEART: Regular rate and rhythm, S1, S2 without murmur, rub or gallop. ABDOMEN: Soft, nontender, nondistended, normoactive bowel sounds, no guarding, no rebound, no hepatosplenomegaly, no masses. EXTREMITIES: 2+ pulses, warm, well-perfused, no edema. NEUROLOGICAL: he is contracted and d, moves the muscles of the face but dose not follow commands. PSYCH: Normal mood, normal affect. SKIN: Warm, dry, normal turgor, no rashes or lesions noted Laboratory Results - last 24 hr 08/06/18 08/06/18 08/07/18 16:13 22:01 06:11 WBC RBC Hgb Hct MCV MCH MCHC RDW Plt Count MPV Absolute Neuts (auto) Neutrophils % Lymphocytes % Monocytes % Eosinophils % Basophils % Nucleated RBC % Sodium Potassium Chloride Carbon Dioxide Anion Gap BUN Creatinine Creat Clearance w eGFR POC Glucometer 174 132 150 Random Glucose Calcium Phosphorus Magnesium Vancomycin Peak 08/07/18 08/07/18 08/08/18 11:31 17:40 05:34 WBC RBC Hgb Hct MCV MCH MCHC RDW Plt Count MPV Absolute Neuts (auto) Neutrophils % Lymphocytes % Monocytes % Eosinophils % Basophils % Nucleated RBC % Sodium Potassium Chloride Carbon Dioxide Anion Gap BUN Creatinine Creat Clearance w eGFR POC Glucometer 154 193 165 Random Glucose Calcium Phosphorus Magnesium Vancomycin Peak 01/08/08/18 08/09/18 17:18 22:59 05:21 WBC RBC Hgb Hct MCV MCH MCHC RDW Plt Count MPV Absolute Neuts (auto) Neutrophils % Lymphocytes % Monocytes % Eosinophils % Basophils % Nucleated RBC % Sodium Potassium Chloride Carbon Dioxide Anion Gap BUN Creatinine Creat Clearance w eGFR POC Glucometer 189 123 108 Random Glucose Calcium Phosphorus Magnesium Vancomycin Peak 08/09/18 08/09/18 08/09/18 11:47 13:30 13:30 WBC 14.8 H RBC 4.66 Hgb 14.1 Hct 42.7 MCV 91.7 MCH 30.3 MCHC 33.1 RDW 15.2 Plt Count 321 MPV 9.6 Absolute Neuts (auto) 12.6 H Neutrophils % 85.0 H Lymphocytes % 6.6 L D Monocytes % 8.3 Eosinophils % 0.0 Basophils % 0.1 Nucleated RBC % 0 Sodium 138 Potassium 3.9 Chloride 104 Carbon Dioxide 23 Anion Gap 11 BUN 23 H Creatinine 1.0 Creat Clearance w eGFR > 60 POC Glucometer 119 Random Glucose 172 H Calcium 9.1 Phosphorus Magnesium Vancomycin Peak 08/09/18 08/09/18 13:30 13:30 WBC RBC Hgb Hct MCV MCH MCHC RDW Plt Count MPV Absolute Neuts (auto) Neutrophils % Lymphocytes % Monocytes % Eosinophils % Basophils % Nucleated RBC % Sodium Potassium Chloride Carbon Dioxide Anion Gap BUN Creatinine Creat Clearance w eGFR POC Glucometer Random Glucose Calcium Phosphorus 4.3 Magnesium 2.3 Vancomycin Peak 11.3 L Active Medications Generic Name Dose Route Start Last Admin Trade Name Freq PRN Reason Stop Dose Admin Acetaminophen 650 mg 08/01/18 01:53 Tylenol - PO Q4H PRN FEVER Acetaminophen 1,000 mg 08/09/18 17:10 Ofirmev Injection - IVPB Q6H PRN FEVER Ascorbic Acid 500 mg 08/01/18 10:00 08/09/18 11:52 Vitamin C - PO 500 mg DAILY ART Administration Aspirin 81 mg 08/01/18 10:00 08/09/18 11:51 Asa - PO 81 mg DAILY ART Administration Donepezil HCl 10 mg 08/01/18 22:00 08/08/18 22:15 Aricept - PO 10 mg HS ART Administration Heparin Sodium (Porcine) 5,000 unit 08/08/18 14:00 08/09/18 17:00 Heparin - SQ 5,000 unit TID ART Administration Vancomycin HCl 1,000 mg in 250 mls @ 166.667 mls/hr 08/08/18 14:00 08/09/18 17:01 Vancomycin (Pre-Docked) IVPB 166.667 mls/hr Q12H ART Administration Protocol Piperacillin Sod/Tazobactam 50 mls @ 100 mls/hr 08/08/18 14:30 08/09/18 11:50 Sod 3.375 gm/ Dextrose IVPB 100 mls/hr Q8H-IV ART Administration Protocol Dextrose/Sodium Chloride 1,000 mls @ 100 mls/hr 08/09/18 13:00 08/09/18 17:00 D5-1/2ns - IV 08/10/18 10:00 100 mls/hr ASDIR ART Administration Prednisone 60 mg 08/08/18 10:00 08/09/18 11:52 Deltasone - PO 60 mg DAILY ART Administration Thiamine HCl 100 mg 08/07/18 22:00 08/08/18 22:15 Vitamin B1 - PO 100 mg HS ART Administration Valproate Sodium 250 mg 08/08/18 10:00 08/09/18 11:51 Depakene - PO 250 mg BID ART Administration Zinc Sulfate 220 mg 08/07/18 10:42 08/09/18 11:51 Orazinc - PO 220 mg DAILY@0800 ART Administration ASSESSMENT/PLAN: He is a 62 Y/O M who initially P/W NMS and PNA, was improving and was initiated on augmenting and doxy to be DCed to the [place] with plan for family further deciding on PEG placement as they were not ready to make this decision at this time. since yesterday he has been spiknig high fevers likely in the setting of aspiration pneumonia and per ID recs has been starte don VAnc and zosyn at this time. Fever most likely in the setting of aspiration pneumonia: back on vanco/Zosyn monitor for aspiration PNA pending CXs NMS: depakote 250mg BID symptoms have significantly improved. pt to be discharged to [place] with oral decadron taper Diet: is not taking enough by mouth an has been restarted on IV fluids Dementia: aricept 10mg qhs, unclear the benefit at this time GI: PPI daily Full code dispo: [place] when stable Visit type - Emergency Visit Emergency Visit: No - New Patient This patient is new to me today: No - Critical Care Critical Care patient: No - Discharge Referral Referred to [facility] Med P.C.: No
[2018-08-09] MEDS: ACETAMINOPHEN 1000 MG/100 ML VIAL (NON FORMULARY) IVPB PRN (18:15)
[2018-08-09] MEDS: THIAMINE HCL 100 MG TABLET (FP) PO SCH (22:58)
[2018-08-09] MEDS: DONEPEZIL HCL 10 MG TABLET (FP) PO SCH (22:59)
[2018-08-10] MEDS ORDERED: PIPERACILLIN/TAZOBACTAM 3.375 GM VIAL IVPB ONE ×3 (01:04→17:31)
[2018-08-10] MEDS ORDERED: DEXTROSE 5%-WATER - 50 ML IVPB ONE ×3 (01:04→17:31)
[2018-08-10] MEDS: VANCOMYCIN 1 GRAM (PRE-DOCKED) 1,000 MG/250 ML BAG IVPB SCH ×2 (01:42→16:06)
[2018-08-10] MEDS: PIPERACILLIN/TAZOB 3.375 GM 3.375 GM in DEXTROSE 5%-WATER - 50 ML IVPB SCH ×3 (02:59→19:20)
[2018-08-10] MEDS: HEPARIN NA (PORCINE) 5,000 UNITS/ML 1ML VIAL SQ SCH ×3 (06:53→22:19)
--- NOTE | 2018-08-10 11:47 | HOSP ---
Subjective - Review of Symptoms Events since last encounter: he is still non responsive no distress still running fever Other Systems: ros cant be done due to the mental status Physical Examination Vital Signs: Vital Signs Temperature 99.6 F 08/10/18 06:00 Pulse Rate 93 H 08/10/18 06:00 Respiratory Rate 10 08/10/18 06:00 Blood Pressure 146/75 08/10/18 06:00 O2 Sat by Pulse Oximetry (%) 97 08/09/18 21:00 Constitutional: Yes: No Distress, Calm Neck: Yes: WNL Respiratory: Yes: Regular Gastrointestinal: Yes: Normal Bowel Sounds Neurological: Yes: Unresponsive Labs: CBC, BMP 08/09/18 13:30 08/09/18 13:30 Hospitalist Encounter Assessment: He is a 62 Y/O M who initially P/W NMS and PNA, was improving and was initiated on augmenting and doxy to be DCed to the [facility] with plan for family further deciding on PEG placement as they were not ready to make this decision at this time. since yesterday he has been spiknig high fevers likely in the setting of aspiration pneumonia and per ID recs has been starte don VAnc and zosyn at this time. Fever most likely in the setting of aspiration pneumonia: back on abx vanco and zosyn depakote 250mg BID symptoms have significantly improved. Diet: is not taking enough by mouth an has been restarted on IV fluids Dementia: aricept 10mg qhs, unclear the benefit at this time GI: PPI daily
[2018-08-10] MEDS: VALPROATE SODIUM 250 MG/5 ML UNIT DOSE CUP PO SCH ×2 (12:11→22:19)
[2018-08-10] MEDS: ASPIRIN 81 MG CHEWABLE TABLETS PO SCH (12:11)
[2018-08-10] MEDS: predniSONE 20 MG TABLET (UD) PO SCH (12:11)
[2018-08-10] MEDS: ZINC SULFATE 220 MG CAPSULE (FP) PO SCH (12:12)
[2018-08-10] MEDS: ASCORBIC ACID 500 MG TABLET (FP) PO SCH (12:12)
--- NOTE | 2018-08-10 12:18 | PN ---
Progress Note, Physician History of Present Illness: Pt is less lethargic. No acute distress noted. - Current Medication List Current Medications: Active Medications Acetaminophen (Ofirmev Injection -) 1,000 mg IVPB Q6H PRN PRN Reason: FEVER Last Admin: 08/09/18 18:15 Dose: 1,000 mg Ascorbic Acid (Vitamin C -) 500 mg PO DAILY [facility] Last Admin: 08/10/18 12:12 Dose: 500 mg Aspirin (Asa -) 81 mg PO DAILY [facility] Last Admin: 08/10/18 12:11 Dose: 81 mg Donepezil HCl (Aricept -) 10 mg PO HS [facility] Last Admin: 08/09/18 22:59 Dose: 10 mg Heparin Sodium (Porcine) (Heparin -) 5,000 unit SQ TID [facility] Last Admin: 08/10/18 06:53 Dose: 5,000 unit Vancomycin HCl (Vancomycin (Pre-Docked)) 1,000 mg in 250 mls @ 166.667 mls/hr IVPB Q12H [facility]; Protocol Last Admin: 08/10/18 01:42 Dose: 166.667 mls/hr Piperacillin Sod/Tazobactam (Sod 3.375 gm/ Dextrose) 50 mls @ 100 mls/hr IVPB Q8H-IV [facility]; Protocol Last Admin: 08/10/18 12:11 Dose: 100 mls/hr Prednisone (Deltasone -) 60 mg PO DAILY [facility] Last Admin: 08/10/18 12:11 Dose: 60 mg Thiamine HCl (Vitamin B1 -) 100 mg PO HS [facility] Last Admin: 08/09/18 22:58 Dose: 100 mg Valproate Sodium (Depakene -) 250 mg PO BID [facility] Last Admin: 08/10/18 12:11 Dose: 250 mg Zinc Sulfate (Orazinc -) 220 mg PO DAILY@0800 [facility] Last Admin: 08/10/18 12:12 Dose: 220 mg - Objective Vital Signs: Vital Signs Temperature 99.6 F 08/10/18 06:00 Pulse Rate 93 H 08/10/18 06:00 Respiratory Rate 10 08/10/18 06:00 Blood Pressure 146/75 08/10/18 06:00 O2 Sat by Pulse Oximetry (%) 97 08/09/18 21:00 Constitutional: Yes: No Distress, Other (nonverbal, not following commands) Eyes: Yes: Conjunctiva Clear Cardiovascular: Yes: Regular Rate and Rhythm Respiratory: Yes: Regular Gastrointestinal: Yes: Normal Bowel Sounds, Soft Labs: CBC, BMP 08/09/18 13:30 08/09/18 13:30 INR, PTT INR 1.29 (0.83-1.09) H 07/29/18 05:15 Microbiology 07/30/18 16:30 Sputum - Oropharynx Suctioned Sputum Gram Stain - Final 07/30/18 16:30 Sputum - Oropharynx Suctioned Sputum Sputum Culture - Final S Aureus Yeast Like Organism 07/28/18 15:36 Blood - Peripheral Venous Blood Culture - Final NO GROWTH AFTER 5 DAYS INCUBATION 07/28/18 15:25 Blood - Peripheral Venous Blood Culture - Final NO GROWTH AFTER 5 DAYS INCUBATION 07/28/18 15:50 Urine - Urine - Catheterized Urine Culture - Final NO GROWTH OBTAINED Problem List - Problems (1) PNA (pneumonia) Code(s): J18.9 - PNEUMONIA, UNSPECIFIED ORGANISM Assessment/Plan PNA - likely aspiration Alzheimers dementia Schizophrenia r/o neuroleptic malignant syndrom r/o seizure d.o. -- Tmax 101.6 last night, wbc stable -- cont. antibiotics for now -- continue monitor temps, f/u blood culture results monitor closely
[2018-08-10] MEDS: ACETAMINOPHEN 1000 MG/100 ML VIAL (NON FORMULARY) IVPB PRN ×2 (12:58→22:19)
[2018-08-10 17:42] LABS: URINE APPEARANCE SLCLOUDY; URINE BILIRUBIN NEGATIVE (<2.0 mg/dL); URINE COLOR DKYELLOW; URINE GLUCOSE (UA) NEGATIVE (NEGATIVE); URINE KETONE NEGATIVE (NEGATIVE); URINE LEUK ESTERASE NEGATIVE (NEGATIVE); URINE NITRITE NEGATIVE (NEGATIVE); URINE PROTEIN NEGATIVE (NEGATIVE); URINE UROBILINOGEN NEGATIVE mg/dL (0.2-1.0)
[2018-08-10] MEDS: DONEPEZIL HCL 10 MG TABLET (FP) PO SCH (22:18)
[2018-08-10] MEDS: THIAMINE HCL 100 MG TABLET (FP) PO SCH (22:18)
[2018-08-11] MEDS ORDERED: PIPERACILLIN/TAZOBACTAM 3.375 GM VIAL IVPB ONE ×4 (00:44→23:52)
[2018-08-11] MEDS ORDERED: DEXTROSE 5%-WATER - 50 ML IVPB ONE ×4 (00:44→23:52)
[2018-08-11] MEDS: VANCOMYCIN 1 GRAM (PRE-DOCKED) 1,000 MG/250 ML BAG IVPB SCH ×2 (01:19→13:20)
[2018-08-11] MEDS: PIPERACILLIN/TAZOB 3.375 GM 3.375 GM in DEXTROSE 5%-WATER - 50 ML IVPB SCH ×3 (02:50→18:35)
[2018-08-11] MEDS: HEPARIN NA (PORCINE) 5,000 UNITS/ML 1ML VIAL SQ SCH ×3 (06:10→22:25)
--- NOTE | 2018-08-11 11:59 | PN ---
Physical Exam: SUBJECTIVE: Patient seen and examined still running fever and on abx no distress OBJECTIVE: Vital Signs Period Temp Pulse Resp BP Sys/Cortes Pulse Ox Last 24 Hr 99.2 F-101.8 F 93-112 14-22 111-133/71-77 98 GENERAL: The patient is awake, in no acute distress. HEAD: Normal with no signs of trauma. EYES: PERRL, extraocular movements intact, sclera anicteric, conjunctiva clear. No ptosis. ENT: Ears normal, nares patent, oropharynx clear without exudates, moist mucous membranes. NECK: Trachea midline, full range of motion, supple. LUNGS: Breath sounds equal, clear to auscultation bilaterally, no wheezes, no crackles, no accessory muscle use. HEART: Regular rate and rhythm, S1, S2 without murmur, rub or gallop. ABDOMEN: Soft, nontender, nondistended, normoactive bowel sounds, no guarding, no rebound, no hepatosplenomegaly, no masses. EXTREMITIES: 2+ pulses, warm, well-perfused, no edema. NEUROLOGICAL: alert but not responding PSYCH: Normal mood, normal affect. SKIN: Warm, dry, normal turgor, no rashes or lesions noted Laboratory Results - last 24 hr 08/10/18 08/10/18 16:30 17:57 POC Glucometer 258 Urine Color Dkyellow Urine Appearance Slcloudy Urine pH 5.0 Ur Specific [place] 1.025 Urine Protein Negative Urine Glucose (UA) Negative Urine Ketones Negative Urine Blood Negative Urine Nitrite Negative Urine Bilirubin Negative Urine Urobilinogen Negative Ur Leukocyte Esterase Negative Active Medications Generic Name Dose Route Start Last Admin Trade Name Luz PRN Reason Stop Dose Admin Acetaminophen 1,000 mg 08/09/18 17:10 08/10/18 22:19 Ofirmev Injection - IVPB 1,000 mg Q6H PRN Administration FEVER Ascorbic Acid 500 mg 08/01/18 10:00 08/10/18 12:12 Vitamin C - PO 500 mg DAILY ART Administration Aspirin 81 mg 08/01/18 10:00 08/10/18 12:11 Asa - PO 81 mg DAILY ART Administration Donepezil HCl 10 mg 08/01/18 22:00 08/10/18 22:18 Aricept - PO 10 mg HS ART Administration Heparin Sodium (Porcine) 5,000 unit 08/08/18 14:00 08/11/18 06:10 Heparin - SQ 5,000 unit TID ART Administration Vancomycin HCl 1,000 mg in 250 mls @ 166.667 mls/hr 08/08/18 14:00 08/11/18 01:19 Vancomycin (Pre-Docked) IVPB 166.667 mls/hr Q12H ART Administration Protocol Piperacillin Sod/Tazobactam 50 mls @ 100 mls/hr 08/08/18 14:30 08/11/18 02:50 Sod 3.375 gm/ Dextrose IVPB 100 mls/hr Q8H-IV ART Administration Protocol Potassium Chloride/Dextrose/Sod Cl 10 meq in 1,000 mls @ 100 mls/hr 08/11/18 11:45 D5-1/2ns+10 Meq Kcl - IV ASDIR ART Prednisone 50 mg 08/11/18 11:50 Deltasone - PO DAILY ART Thiamine HCl 100 mg 08/07/18 22:00 08/10/18 22:18 Vitamin B1 - PO 100 mg HS ART Administration Valproate Sodium 250 mg 08/08/18 10:00 08/10/18 22:19 Depakene - PO 250 mg BID ART Administration Zinc Sulfate 220 mg 08/07/18 10:42 08/10/18 12:12 Orazinc - PO 220 mg DAILY@0800 ART Administration ASSESSMENT/PLAN: He is a 62 Y/O M who initially P/W NMS and PNA, admitted for spiknig high fevers likely in the setting of aspiration pneumonia and per ID recs has been starte d on VAnc and zosyn at this time. Fever most likely in the setting of aspiration pneumonia: back on abx vanco and zosyn he is still running high fever despite the abx and seen by id and he is taking prednisone 60 daily and will start on lowering the dose and will lower to 50 and taper from there d/w nurse to use cooling blanket depakote 250mg BID symptoms have significantly improved. Diet: is not taking enough by mouth an has been on starting on IV fluids Dementia: aricept 10mg qhs, unclear the benefit at this time GI: PPI daily
[2018-08-11] MEDS: ZINC SULFATE 220 MG CAPSULE (FP) PO SCH (13:18)
[2018-08-11] MEDS: ASCORBIC ACID 500 MG TABLET (FP) PO SCH (13:18)
[2018-08-11] MEDS: VALPROATE SODIUM 250 MG/5 ML UNIT DOSE CUP PO SCH ×2 (13:18→22:26)
[2018-08-11] MEDS: predniSONE 20 MG TABLET (UD) PO SCH (13:19)
[2018-08-11] MEDS: ASPIRIN 81 MG CHEWABLE TABLETS PO SCH (13:20)
[2018-08-11] MEDS: D5-1/2NS+10 MEQ KCL - 10 MEQ/1,000 ML INFUS.BAG IV SCH (13:41)
--- NOTE | 2018-08-11 15:08 | PN ---
Progress Note, Physician History of Present Illness: Pt remains febrile Tmax 101.8F. Arousable, nonverbal. +occasional cough noted. - Current Medication List Current Medications: Active Medications Acetaminophen (Ofirmev Injection -) 1,000 mg IVPB Q6H PRN PRN Reason: FEVER Last Admin: 08/10/18 22:19 Dose: 1,000 mg Ascorbic Acid (Vitamin C -) 500 mg PO DAILY [facility] Last Admin: 08/11/18 13:18 Dose: 500 mg Aspirin (Asa -) 81 mg PO DAILY [facility] Last Admin: 08/11/18 13:20 Dose: 81 mg Donepezil HCl (Aricept -) 10 mg PO HS [facility] Last Admin: 08/10/18 22:18 Dose: 10 mg Heparin Sodium (Porcine) (Heparin -) 5,000 unit SQ TID [facility] Last Admin: 08/11/18 13:20 Dose: 5,000 unit Vancomycin HCl (Vancomycin (Pre-Docked)) 1,000 mg in 250 mls @ 166.667 mls/hr IVPB Q12H [facility]; Protocol Last Admin: 08/11/18 13:20 Dose: 166.667 mls/hr Piperacillin Sod/Tazobactam (Sod 3.375 gm/ Dextrose) 50 mls @ 100 mls/hr IVPB Q8H-IV ART; Protocol Last Admin: 08/11/18 13:19 Dose: 100 mls/hr Potassium Chloride/Dextrose/Sod Cl (D5-1/2ns+10 Meq Kcl -) 10 meq in 1,000 mls @ 100 mls/hr IV ASDIR [facility] Last Admin: 08/11/18 13:41 Dose: 100 mls/hr Prednisone (Deltasone -) 50 mg PO DAILY [facility] Thiamine HCl (Vitamin B1 -) 100 mg PO HS [facility] Last Admin: 08/10/18 22:18 Dose: 100 mg Valproate Sodium (Depakene -) 250 mg PO BID [facility] Last Admin: 08/11/18 13:18 Dose: 250 mg Zinc Sulfate (Orazinc -) 220 mg PO DAILY@0800 [facility] Last Admin: 08/11/18 13:18 Dose: 220 mg - Objective Vital Signs: Vital Signs Temperature 101 F H 08/11/18 14:00 Pulse Rate 108 H 08/11/18 14:00 Respiratory Rate 20 08/11/18 14:00 Blood Pressure 148/92 08/11/18 14:00 O2 Sat by Pulse Oximetry (%) 98 08/10/18 21:00 Constitutional: Yes: No Distress Eyes: Yes: Conjunctiva Clear Neck: Yes: Supple Cardiovascular: Yes: Tachycardia Respiratory: Yes: Diminished, Other (poor inspiratory effort) Gastrointestinal: Yes: Normal Bowel Sounds, Soft Extremities: Yes: Other (contracted LE) Integumentary: Yes: Other (no open wounds on LEs/Hips) Labs: CBC, BMP 08/09/18 13:30 08/09/18 13:30 INR, PTT INR 1.29 (0.83-1.09) H 07/29/18 05:15 Microbiology 08/09/18 13:55 Blood - Peripheral Venous Blood Culture - Preliminary NO GROWTH OBTAINED AFTER 48 HOURS, INCUBATION TO CONTINUE FOR 3 DAYS. 07/30/18 16:30 Sputum - Oropharynx Suctioned Sputum Gram Stain - Final 07/30/18 16:30 Sputum - Oropharynx Suctioned Sputum Sputum Culture - Final S Aureus Yeast Like Organism 07/28/18 15:36 Blood - Peripheral Venous Blood Culture - Final NO GROWTH AFTER 5 DAYS INCUBATION 07/28/18 15:25 Blood - Peripheral Venous Blood Culture - Final NO GROWTH AFTER 5 DAYS INCUBATION 07/28/18 15:50 Urine - Urine - Catheterized Urine Culture - Final NO GROWTH OBTAINED - ....Imaging Chest X-ray: Report Reviewed Problem List - Problems (1) PNA (pneumonia) Code(s): J18.9 - PNEUMONIA, UNSPECIFIED ORGANISM Assessment/Plan PNA - likely aspiration Alzheimers dementia Schizophrenia r/o neuroleptic malignant syndrom r/o seizure d.o. Pt remains febrile Blood cultures no growth in 48Hrs, f/u repeat Urine culture results pending Concern remains for recurrent aspiration Repeat cbc/bmp today, Vancomycin trough prior to tonight's dose Continue IV antibiotics Monitor closely
[2018-08-11 17:18] LABS: BASO % 0.3 % (0-2.0); HEMATOCRIT 37.5 % (35.4-49); HEMOGLOBIN 12.5 GM/dL (11.7-16.9); LYMPH % 1.8 % (8-40); MCH 30.7 pg (25.7-33.7); MCHC 33.4 g/dl (32.0-35.9); MEAN PLT VOLUME 9.7 fl (7.5-11.1); MONO % 2.8 % (3.8-10.2); NEUT % 95.1 % (42.8-82.8); PLATELET COUNT 214 K/MM3 (134-434); RBC 4.07 M/mm3 (4.00-5.60); RDW 15.7 % (11.9-15.9); WHITE BLOOD COUNT 22.8 K/mm3 (4.0-10.0)
[2018-08-11 17:38] LABS: ANION GAP 13 MMOL/L (8-16); BLOOD UREA NITROGEN 17 mg/dL (7-18); CALCIUM 8.4 mg/dL (8.5-10.1); CHLORIDE 104 mmol/L (98-107); CO2 23 mmol/L (21-32); CREATININE 0.9 mg/dL (0.55-1.3); GLUCOSE,RANDOM 228 mg/dL (74-106); POTASSIUM 3.8 mmol/L (3.5-5.1); SODIUM 139 mmol/L (136-145)
[2018-08-11 18:07] LABS: PLATELET ESTIMATE ADEQUATE
[2018-08-11] MEDS: DONEPEZIL HCL 10 MG TABLET (FP) PO SCH (22:25)
[2018-08-11] MEDS: THIAMINE HCL 100 MG TABLET (FP) PO SCH (22:25)
[2018-08-12] MEDS: VANCOMYCIN 1 GRAM (PRE-DOCKED) 1,000 MG/250 ML BAG IVPB SCH ×2 (01:28→13:17)
[2018-08-12] MEDS: D5-1/2NS+10 MEQ KCL - 10 MEQ/1,000 ML INFUS.BAG IV SCH ×3 (01:28→17:34)
[2018-08-12] MEDS: PIPERACILLIN/TAZOB 3.375 GM 3.375 GM in DEXTROSE 5%-WATER - 50 ML IVPB SCH ×3 (03:17→17:33)
[2018-08-12] MEDS: HEPARIN NA (PORCINE) 5,000 UNITS/ML 1ML VIAL SQ SCH ×3 (05:51→21:35)
[2018-08-12] MEDS ORDERED: PT OWN MED DRAWER 7, Y5N ONE (08:44)
[2018-08-12] MEDS ORDERED: PIPERACILLIN/TAZOBACTAM 3.375 GM VIAL IVPB ONE ×2 (08:52→17:30)
[2018-08-12] MEDS ORDERED: DEXTROSE 5%-WATER - 50 ML IVPB ONE ×2 (08:52→17:31)
[2018-08-12] MEDS: ZINC SULFATE 220 MG CAPSULE (FP) PO SCH (09:00)
[2018-08-12] MEDS: ACETAMINOPHEN 1000 MG/100 ML VIAL (NON FORMULARY) IVPB PRN (09:49)
[2018-08-12] MEDS: VALPROATE SODIUM 250 MG/5 ML UNIT DOSE CUP PO SCH ×2 (09:50→21:34)
[2018-08-12] MEDS: ASPIRIN 81 MG CHEWABLE TABLETS PO SCH (10:38)
[2018-08-12] MEDS: predniSONE 20 MG TABLET (UD) PO SCH (10:38)
[2018-08-12] MEDS: ASCORBIC ACID 500 MG TABLET (FP) PO SCH (10:38)
--- NOTE | 2018-08-12 12:14 | PN ---
Progress Note, [facility] - Note Progress Note: Selected Entries 08/10/18 08/11/18 08/11/18 15:20 02:00 07:00 Breakfast 0 Diet Tolerated Poor Lunch 25% Temperature 99.8 F H 101.8 F H 08/11/18 08/11/18 08/11/18 10:00 11:00 14:00 Breakfast 0 Diet Tolerated Poor Poor Lunch 0 Temperature 101.8 F H 101 F H 08/11/18 08/11/18 08/11/18 18:00 18:46 19:15 Breakfast Diet Tolerated Refused Lunch Temperature 101.0 F H 98.9 F 08/11/18 08/12/18 08/12/18 22:00 02:00 06:00 Breakfast Diet Tolerated Lunch Temperature 99.1 F 100.1 F H 99.4 F 08/12/18 08:59 Breakfast Diet Tolerated Lunch Temperature 101.4 F H Laboratory Tests 08/08/18 08/09/18 08/11/18 16:19 13:30 16:27 WBC 14.4 H 14.8 H 22.8 H Per EMR: Fever most likely in the setting of aspiration pneumonia: back on abx vanco and zosyn he is still running high fever despite the abx and seen by id and he is taking prednisone 60 daily and will start on lowering the dose and will lower to 50 and taper from there CXR (-) Pt presents with brisk swallow with thin liquid. However, Aspiration risk as pt does hold food/liquid in his mouth, with suspected spillage over base of tonque into airway before swallow is initiated. Pt not transferring pureed food with oral holding. Pt's sister feeding puree when I entered, with severe oral holding. REC: M[employer] TID, before meals. For now, continue oral liquids, eg Ensure plus, Single sips, wait for swallow before next sip If lips tightly closed, suction oral cavity, r/o oral pooling hold pureed food for now Try to crush meds finely or provide i liquid form, mixed with sweet liquid eg maple syrup, cranberry, oj Educate sister on using Yankower to suction oral residue. PEG recommended for hydration/medication, and to supplement PO in the future once infection is under control.
[2018-08-12] MEDS ORDERED: VANCOMYCIN 1 GRAM (PRE-DOCKED) 1,000 MG/250 ML BAG IVPB SCH (14:00)
[2018-08-12 14:05] LABS: HEMATOCRIT 35.5 % (35.4-49); MCH 30.8 pg (25.7-33.7); MCHC 33.7 g/dl (32.0-35.9); MEAN CELL VOLUME 91.6 fl (80-96); MEAN PLT VOLUME 9.7 fl (7.5-11.1); PLATELET COUNT 192 K/MM3 (134-434); RBC 3.88 M/mm3 (4.00-5.60); RDW 15.7 % (11.9-15.9); WHITE BLOOD COUNT 19.7 K/mm3 (4.0-10.0)
--- NOTE | 2018-08-12 14:22 | PN ---
Progress Note, Physician History of Present Illness: patient still continues to spike fever vanco trough noted - Current Medication List Current Medications: Active Medications Acetaminophen (Ofirmev Injection -) 1,000 mg IVPB Q6H PRN PRN Reason: FEVER Ascorbic Acid (Vitamin C -) 500 mg PO DAILY [facility] Last Admin: 08/12/18 10:38 Dose: 500 mg Aspirin (Asa -) 81 mg PO DAILY [facility] Last Admin: 08/12/18 10:38 Dose: 81 mg Donepezil HCl (Aricept -) 10 mg PO HS [facility] Last Admin: 08/11/18 22:25 Dose: 10 mg Heparin Sodium (Porcine) (Heparin -) 5,000 unit SQ TID [facility] Last Admin: 08/12/18 13:17 Dose: 5,000 unit Vancomycin HCl (Vancomycin (Pre-Docked)) 1,000 mg in 250 mls @ 166.667 mls/hr IVPB Q12H [facility]; Protocol Last Admin: 08/12/18 13:17 Dose: 166.667 mls/hr Piperacillin Sod/Tazobactam (Sod 3.375 gm/ Dextrose) 50 mls @ 100 mls/hr IVPB Q8H-IV [facility]; Protocol Last Admin: 08/12/18 10:38 Dose: 100 mls/hr Potassium Chloride/Dextrose/Sod Cl (D5-1/2ns+10 Meq Kcl -) 10 meq in 1,000 mls @ 100 mls/hr IV ASDIR [facility] Last Admin: 08/12/18 11:40 Dose: Not Given Prednisone (Deltasone -) 50 mg PO DAILY [facility] Last Admin: 08/12/18 10:38 Dose: 50 mg Thiamine HCl (Vitamin B1 -) 100 mg PO HS [facility] Last Admin: 08/11/18 22:25 Dose: 100 mg Valproate Sodium (Depakene -) 250 mg PO BID [facility] Last Admin: 08/12/18 09:50 Dose: 250 mg Zinc Sulfate (Orazinc -) 220 mg PO DAILY@0800 [facility] Last Admin: 08/12/18 09:00 Dose: 220 mg - Objective Vital Signs: Vital Signs Temperature 101.4 F H 08/12/18 08:59 Pulse Rate 94 H 08/12/18 08:59 Respiratory Rate 20 08/12/18 09:00 Blood Pressure 143/69 08/12/18 08:59 O2 Sat by Pulse Oximetry (%) 97 08/12/18 09:00 Constitutional: Yes: No Distress, Calm Cardiovascular: Yes: S1, S2 Gastrointestinal: Yes: Normal Bowel Sounds, Soft Musculoskeletal: Yes: WNL Extremities: Yes: WNL Neurological: Yes: Alert, Other Labs: CBC, BMP 08/12/18 13:30 INR, PTT INR 1.29 (0.83-1.09) H 07/29/18 05:15 Assessment/Plan after looking at the history and to see how the patient came with along with infection i am worried that the symptoms could be due to drugs which patient was been given for agitation also now patient is coughing and producing sputum Altered Mental Status r/o Neuroleptic Malignant Syndrome r/o Seizures Seizure Disorder h/o CVA Schizophrenia Alzheimer's Dementia drug reaction mrsa pneumonia wbc decreasing plan continue current abx asp precautions rest as per the team will adjust vanco dose
[2018-08-12 14:31] LABS: ALBUMIN 2.6 g/dl (3.4-5.0); ALK PHOS 99 U/L (45-117); ANION GAP 9 MMOL/L (8-16); BILIRUBIN,TOTAL 0.7 mg/dL (0.2-1); BLOOD UREA NITROGEN 16 mg/dL (7-18); CALCIUM 8.3 mg/dL (8.5-10.1); CHLORIDE 104 mmol/L (98-107); CO2 24 mmol/L (21-32); CREATININE 0.8 mg/dL (0.55-1.3); GLUCOSE,RANDOM 157 mg/dL (74-106); MAGNESIUM 2.3 mg/dL (1.8-2.4); PHOSPHOROUS 2.3 mg/dL (2.5-4.9); SGOT/AST 57 U/L (15-37); SGPT/ALT 70 U/L (13-61); SODIUM 138 mmol/L (136-145); TOT PROT 6.1 g/dl (6.4-8.2)
--- NOTE | 2018-08-12 17:27 | PN ---
Progress Note, Physician History of Present Illness: 24 HR events: -WBC downtrending from 22 -->19 -Pt continues to spike fever, Tmax 101.4 - as per speech and swallow, hold puree foods for now. Continue Ensure TID. - Current Medication List Current Medications: Active Medications Acetaminophen (Ofirmev Injection -) 1,000 mg IVPB Q6H PRN PRN Reason: FEVER Ascorbic Acid (Vitamin C -) 500 mg PO DAILY [facility] Last Admin: 08/12/18 10:38 Dose: 500 mg Aspirin (Asa -) 81 mg PO DAILY [facility] Last Admin: 08/12/18 10:38 Dose: 81 mg Donepezil HCl (Aricept -) 10 mg PO HS [facility] Last Admin: 08/11/18 22:25 Dose: 10 mg Heparin Sodium (Porcine) (Heparin -) 5,000 unit SQ TID [facility] Last Admin: 08/12/18 13:17 Dose: 5,000 unit Piperacillin Sod/Tazobactam (Sod 3.375 gm/ Dextrose) 50 mls @ 100 mls/hr IVPB Q8H-IV [facility]; Protocol Last Admin: 08/12/18 10:38 Dose: 100 mls/hr Potassium Chloride/Dextrose/Sod Cl (D5-1/2ns+10 Meq Kcl -) 10 meq in 1,000 mls @ 100 mls/hr IV ASDIR [facility] Last Admin: 08/12/18 11:40 Dose: Not Given Vancomycin HCl 1,250 mg/ (Dextrose) 250 mls @ 166.667 mls/hr IVPB Q24H [facility] Vancomycin HCl (Vancomycin (Pre-Docked)) 1,000 mg in 250 mls @ 166.667 mls/hr IVPB Q24H [facility]; Protocol Prednisone (Deltasone -) 50 mg PO DAILY [facility] Last Admin: 08/12/18 10:38 Dose: 50 mg Thiamine HCl (Vitamin B1 -) 100 mg PO HS [facility] Last Admin: 08/11/18 22:25 Dose: 100 mg Valproate Sodium (Depakene -) 250 mg PO BID [facility] Last Admin: 08/12/18 09:50 Dose: 250 mg Zinc Sulfate (Orazinc -) 220 mg PO DAILY@0800 [facility] Last Admin: 08/12/18 09:00 Dose: 220 mg - Objective Vital Signs: Vital Signs Temperature 98.2 F 08/12/18 15:41 Pulse Rate 91 H 08/12/18 15:41 Respiratory Rate 18 08/12/18 15:41 Blood Pressure 120/71 08/12/18 15:41 O2 Sat by Pulse Oximetry (%) 97 08/12/18 09:00 Constitutional: Yes: No Distress, Calm Eyes: Yes: Conjunctiva Clear HENT: Yes: Atraumatic Neck: Yes: Supple, Trachea Midline Cardiovascular: Yes: Regular Rate and Rhythm Respiratory: Yes: Other (coarse BS b/l) Gastrointestinal: Yes: Normal Bowel Sounds, Soft Musculoskeletal: Yes: Joint Stiffness, Muscle Pain (contractures x 1 extremities ), Muscle Weakness, Other Extremities: Yes: Other (moves only with assistance) Edema: No Peripheral Pulses WNL: Yes Peripheral Pulses: Left Radial: 2+, Right Radial: 2+, Left Doralis Pedis: 2+, Right Dorsalis Pedis: 2+ Integumentary: Yes: WNL Neurological: Yes: Lethargy, Weakness, Other (bedbound,) ...Motor Strength: WNL Psychiatric: Yes: Alert, Oriented Labs: CBC, BMP 08/12/18 13:30 08/12/18 13:30 INR, PTT INR 1.29 (0.83-1.09) H 07/29/18 05:15 Problem List - Problems (1) PNA (pneumonia) Assessment/Plan: continue vanco and Zosyn prednisone 50mg daily trend fever and WBC curve. Code(s): J18.9 - PNEUMONIA, UNSPECIFIED ORGANISM (2) Neuroleptic malignant syndrome Assessment/Plan: depakote 250mg BID continue Zinc/thiamine/vitamin C Code(s): G21.0 - MALIGNANT NEUROLEPTIC SYNDROME Impression/Plan Impression/Plan: DISPO:Full code PPX ASA 81mg daily, heparin SC TID Dementia: aricept 10mg qhs GI: PPI daily Visit type - Emergency Visit Emergency Visit: Yes ED Registration Date: 07/28/18 Care time: The patient presented to the Emergency Department on the above date and was hospitalized for further evaluation of their emergent condition. - New Patient This patient is new to me today: No - Critical Care Critical Care patient: No - Discharge Referral Referred to [facility] Med P.C.: No
[2018-08-12] MEDS: THIAMINE HCL 100 MG TABLET (FP) PO SCH (21:34)
[2018-08-12] MEDS: DONEPEZIL HCL 10 MG TABLET (FP) PO SCH (21:35)
[2018-08-12] MEDS ORDERED: VALPROATE SODIUM 500 MG/5 ML VIAL IVPB ONE (23:39)
[2018-08-13] MEDS ORDERED: PIPERACILLIN/TAZOBACTAM 3.375 GM VIAL IVPB ONE ×3 (00:50→16:49)
[2018-08-13] MEDS ORDERED: DEXTROSE 5%-WATER - 50 ML IVPB ONE ×3 (00:50→16:49)
[2018-08-13] MEDS: PIPERACILLIN/TAZOB 3.375 GM 3.375 GM in DEXTROSE 5%-WATER - 50 ML IVPB SCH ×3 (01:16→17:11)
[2018-08-13] MEDS: VANCOMYCIN 1,250 MG in DEXTROSE 5%-WATER - 250 ML IVPB SCH (02:01)
[2018-08-13] MEDS: HEPARIN NA (PORCINE) 5,000 UNITS/ML 1ML VIAL SQ SCH ×3 (05:15→21:39)
[2018-08-13] MEDS: D5-1/2NS+10 MEQ KCL - 10 MEQ/1,000 ML INFUS.BAG IV SCH ×2 (06:35→13:23)
[2018-08-13] MEDS ORDERED: ACETAMINOPHEN 1000 MG/100 ML VIAL (NON FORMULARY) IVPB ONE (10:22)
--- NOTE | 2018-08-13 10:23 | PN ---
Physical Exam: SUBJECTIVE: Patient seen and examined at the bedside I found him minimally responsive,eyes opened, diffused sweating with tremors. He is non verbal at baseline, but at times has been heard saying a few words. OBJECTIVE: patient minimally responsive, appears to be having seizure: stat head ct has fever of 102.f rectal, will give iv tylenol ativan 1mg pushed by me for possible seizure as he was noted to have tremors ekg stat trop, cbc, lactic, cmp ordered keep npo iv tylenol now flu swab chest xray plan: will review above after resulted. keep npo. discussed possible peg tube placement with his sister and hcp. seizure precautions. Vital Signs Period Temp Pulse Resp BP Sys/Cortes Pulse Ox Last 24 Hr 98.2 F-100.0 F 82-91 18-18 113-144/65-89 97 GENERAL: lethargic with diffused diaphoresis, rigid. appeared as if he was actively having seizure. HEAD: Normal with no signs of trauma. EYES: PERRL, extraocular movements intact, sclera anicteric, conjunctiva clear. No ptosis. ENT: Ears normal, nares patent, oropharynx clear without exudates, dry membranes NECK: Trachea midline, full range of motion, supple. LUNGS: Breath sounds equal, clear to auscultation anteriorly HEART: Regular rate and rhythm-with tachycardia ABDOMEN: Soft, nontender, nondistended, normoactive bowel sounds EXTREMITIES: no edema. bilateral hips with pressure associated redness, right ear with healed pressure sore, heals reddened. NEUROLOGICAL:lethargic, rigid, contracted with diaphoresis. blood sugar during event 124. Laboratory Results - last 24 hr 08/12/18 08/12/18 08/12/18 12:05 13:30 13:30 WBC 19.7 H RBC 3.88 L Hgb 12.0 Hct 35.5 MCV 91.6 MCH 30.8 MCHC 33.7 RDW 15.7 Plt Count 192 MPV 9.7 Sodium 138 Potassium 4.0 Chloride 104 Carbon Dioxide 24 Anion Gap 9 BUN 16 Creatinine 0.8 Creat Clearance w eGFR > 60 POC Glucometer 129 Random Glucose 157 H Calcium 8.3 L Phosphorus 2.3 L Magnesium 2.3 Total Bilirubin 0.7 AST 57 H ALT 70 H Alkaline Phosphatase 99 Total Protein 6.1 L Albumin 2.6 L 08/12/18 22:42 WBC RBC Hgb Hct MCV MCH MCHC RDW Plt Count MPV Sodium Potassium Chloride Carbon Dioxide Anion Gap BUN Creatinine Creat Clearance w eGFR POC Glucometer 114 Random Glucose Calcium Phosphorus Magnesium Total Bilirubin AST ALT Alkaline Phosphatase Total Protein Albumin Active Medications Generic Name Dose Route Start Last Admin Trade Name Freq PRN Reason Stop Dose Admin Acetaminophen 1,000 mg 08/12/18 12:27 Ofirmev Injection - IVPB Q6H PRN FEVER Acetaminophen 1,000 mg 08/13/18 10:22 Ofirmev Injection - IVPB 08/13/18 10:23 ONCE ONE Ascorbic Acid 500 mg 08/01/18 10:00 08/12/18 10:38 Vitamin C - PO 500 mg DAILY [facility] Administration Aspirin 81 mg 08/01/18 10:00 08/12/18 10:38 Asa - PO 81 mg DAILY [facility] Administration Donepezil HCl 10 mg 08/01/18 22:00 08/12/18 21:35 Aricept - PO 10 mg HS [facility] Administration Heparin Sodium (Porcine) 5,000 unit 08/08/18 14:00 08/13/18 05:15 Heparin - SQ 5,000 unit TID [facility] Administration Piperacillin Sod/Tazobactam 50 mls @ 100 mls/hr 08/08/18 14:30 08/13/18 01:16 Sod 3.375 gm/ Dextrose IVPB 100 mls/hr Q8H-IV [facility] Administration Protocol Potassium Chloride/Dextrose/Sod Cl 10 meq in 1,000 mls @ 100 mls/hr 08/11/18 11:45 08/13/18 06:35 D5-1/2ns+10 Meq Kcl - IV 100 mls/hr ASDIR ART Administration Vancomycin HCl 1,250 mg/ 250 mls @ 166.667 mls/hr 08/13/18 02:00 08/13/18 02: 01 Dextrose IVPB 166.667 mls/hr Q24H [facility] Administration Vancomycin HCl 1,000 mg in 250 mls @ 166.667 mls/hr 08/13/18 14:00 Vancomycin (Pre-Docked) IVPB Q24H [facility] Protocol Insulin Aspart 1 vial 08/13/18 11:00 Novolog Vial Sliding Scale - SQ ACHS [facility] Protocol Lorazepam 1 mg 08/13/18 10:30 Ativan Injection - IVPUSH 08/13/18 10:31 ONCE ONE Prednisone 50 mg 08/11/18 11:50 08/12/18 10:38 Deltasone - PO 50 mg DAILY [facility] Administration Thiamine HCl 100 mg 08/07/18 22:00 08/12/18 21:34 Vitamin B1 - PO 100 mg HS ART Administration Valproate Sodium 250 mg 08/13/18 10:15 Depacon Injection - IVPB BID ART Zinc Sulfate 220 mg 08/07/18 10:42 08/12/18 09:00 Orazinc - PO 220 mg DAILY@0800 [facility] Administration ASSESSMENT/PLAN: Patient is a 62 year old male with history of dementia, prior alcohol abuse, CVA 's, and hyperlipidemia. He presented to the ED with an altered mental status, poor oral intake of oral foods and fluids. Patient was reportedly on haldol and seroquel and has been more lethargic with increased muscle rigidity from NH. ID: Acute metabolic encephalopathy: During rounds, patient minimally responsive, appears to be having seizure: stat head ct negative has fever of 102.f rectal, given tylenol iv. parra cultured. on vanco and zosyn. ativan 1mg pushed by me for possible seizure as he was noted to have tremors. now ordered ativan q6 prn lactic acid 2.5, will fluid bolus and keep npo. repeat lactic acid this p.m. all labs reviewed. flu swab pending chest xray unchanged. plan: will review above after resulted. keep npo. discussed possible peg tube placement with his sister and hcp. seizure precautions. Mrsa pneumonia Blood cultures negative, +mrsa on sputum, on vancomycin and zosyn per id. Renal Hypernatremia, resolved. Neuro: Seizure Disorder h/o CVA Schizophrenia Alzheimer's Dementia On ASA 81mg On Valproate 250mg IV BID, Donepezil 10mg PO hs. will convert seizure medication to IV form. GI elevated ast/alt, trending down hx of etoh abuse on thiamine, folate, multivitamin fen no ivf monitor electrolytes keep npo, hydrate today, clinimax tomorrow. swallow eval ongoing. full code Visit type - Emergency Visit Emergency Visit: Yes ED Registration Date: 07/28/18 Care time: The patient presented to the Emergency Department on the above date and was hospitalized for further evaluation of their emergent condition. - New Patient This patient is new to me today: No - Critical Care Critical Care patient: No - Discharge Referral Referred to [facility] Med P.C.: No
[2018-08-13] MEDS ORDERED: LORazepam 2 MG/ML SDV VIAL IVPUSH ONE (10:30)
[2018-08-13] MEDS: ZINC SULFATE 220 MG CAPSULE (FP) PO SCH (10:46)
[2018-08-13] MEDS: ASCORBIC ACID 500 MG TABLET (FP) PO SCH (10:47)
[2018-08-13] MEDS: predniSONE 20 MG TABLET (UD) PO SCH (10:47)
[2018-08-13] MEDS: ASPIRIN 81 MG CHEWABLE TABLETS PO SCH (10:47)
[2018-08-13] MEDS: INSULIN SLIDING SCALE (NOVOLOG) 1 VIAL SQ SCH ×3 (10:48→21:46)
[2018-08-13] MEDS: VALPROATE SODIUM 500 MG/5 ML VIAL IVPB SCH ×2 (11:13→21:39)
[2018-08-13] MEDS: VALPROATE SODIUM 250 MG/5 ML UNIT DOSE CUP PO SCH (11:28)
[2018-08-13 12:01] LABS: BASO % 0.3 % (0-2.0); EOS % 0.2 % (0-4.5); HEMATOCRIT 35.6 % (35.4-49); HEMOGLOBIN 11.9 GM/dL (11.7-16.9); LYMPH % 8.4 % (8-40); MCH 30.7 pg (25.7-33.7); MCHC 33.3 g/dl (32.0-35.9); MEAN PLT VOLUME 9.8 fl (7.5-11.1); NEUT % 85.1 % (42.8-82.8); PLATELET COUNT 186 K/MM3 (134-434); RBC 3.87 M/mm3 (4.00-5.60); RDW 15.5 % (11.9-15.9); WHITE BLOOD COUNT 15.7 K/mm3 (4.0-10.0)
[2018-08-13] MEDS ORDERED: SODIUM CHLORIDE 500 ML IV STA (12:25)
[2018-08-13 12:33] LABS: ALBUMIN 2.6 g/dl (3.4-5.0); ALK PHOS 95 U/L (45-117); ANION GAP 10 MMOL/L (8-16); BILIRUBIN,TOTAL 0.8 mg/dL (0.2-1); BLOOD UREA NITROGEN 13 mg/dL (7-18); CALCIUM 8.5 mg/dL (8.5-10.1); CHLORIDE 106 mmol/L (98-107); CO2 24 mmol/L (21-32); CREATININE 0.7 mg/dL (0.55-1.3); GLUCOSE,RANDOM 118 mg/dL (74-106); SGOT/AST 38 U/L (15-37); SGPT/ALT 69 U/L (13-61); SODIUM 141 mmol/L (136-145)
--- NOTE | 2018-08-13 12:47 | PN ---
Progress Note, Physician History of Present Illness: no new changes says he is comfortable - Current Medication List Current Medications: Active Medications Acetaminophen (Ofirmev Injection -) 1,000 mg IVPB Q6H PRN PRN Reason: FEVER Ascorbic Acid (Vitamin C -) 500 mg PO DAILY [facility] Last Admin: 08/13/18 10:47 Dose: Not Given Aspirin (Asa -) 81 mg PO DAILY [facility] Last Admin: 08/13/18 10:47 Dose: Not Given Donepezil HCl (Aricept -) 10 mg PO HS [facility] Last Admin: 08/12/18 21:35 Dose: 10 mg Heparin Sodium (Porcine) (Heparin -) 5,000 unit SQ TID [facility] Last Admin: 08/13/18 05:15 Dose: 5,000 unit Piperacillin Sod/Tazobactam (Sod 3.375 gm/ Dextrose) 50 mls @ 100 mls/hr IVPB Q8H-IV [facility]; Protocol Last Admin: 08/13/18 10:46 Dose: 100 mls/hr Potassium Chloride/Dextrose/Sod Cl (D5-1/2ns+10 Meq Kcl -) 10 meq in 1,000 mls @ 100 mls/hr IV ASDIR [facility] Last Admin: 08/13/18 06:35 Dose: 100 mls/hr Vancomycin HCl 1,250 mg/ (Dextrose) 250 mls @ 166.667 mls/hr IVPB Q24H [facility] Last Admin: 08/13/18 02:01 Dose: 166.667 mls/hr Vancomycin HCl (Vancomycin (Pre-Docked)) 1,000 mg in 250 mls @ 166.667 mls/hr IVPB Q24H [facility]; Protocol Sodium Chloride (Normal Saline -) 500 mls @ 500 mls/hr IV ASDIR [facility] Stop: 08/13/18 13:24 Insulin Aspart (Novolog Vial Sliding Scale -) 1 vial SQ ACHS [facility]; Protocol Last Admin: 08/13/18 10:48 Dose: Not Given Lorazepam (Ativan Injection -) 1 mg IVPUSH Q6H PRN PRN Reason: seizures Prednisone (Deltasone -) 50 mg PO DAILY [facility] Last Admin: 08/13/18 10:47 Dose: Not Given Thiamine HCl (Vitamin B1 -) 100 mg PO HS [facility] Last Admin: 08/12/18 21:34 Dose: 100 mg Valproate Sodium (Depacon Injection -) 250 mg IVPB BID [facility] Last Admin: 08/13/18 11:13 Dose: 250 mg Zinc Sulfate (Orazinc -) 220 mg PO DAILY@0800 [facility] Last Admin: 08/13/18 10:46 Dose: Not Given - Objective Vital Signs: Vital Signs Temperature 102.0 F H 08/13/18 10:58 Pulse Rate 124 H 08/13/18 10:58 Respiratory Rate 20 08/13/18 10:58 Blood Pressure 148/70 08/13/18 10:58 O2 Sat by Pulse Oximetry (%) 97 08/12/18 21:00 Constitutional: Yes: No Distress, Calm Cardiovascular: Yes: S1, S2 Respiratory: Yes: Regular, CTA Bilaterally Gastrointestinal: Yes: Ascites, Other Musculoskeletal: Yes: WNL Extremities: Yes: Other Wound/Incision: Yes: Dressing Dry and Intact Psychiatric: Yes: Alert Labs: CBC, BMP 08/13/18 11:18 08/13/18 11:18 INR, PTT INR 1.29 (0.83-1.09) H 07/29/18 05:15 Assessment/Plan after looking at the history and to see how the patient came with along with infection i am worried that the symptoms could be due to drugs which patient was been given for agitation also now patient is coughing and producing sputum Altered Mental Status r/o Neuroleptic Malignant Syndrome r/o Seizures Seizure Disorder h/o CVA Schizophrenia Alzheimer's Dementia drug reaction mrsa pneumonia wbc decreasing plan continue current mgmt final plan needs to be made rest as per the team dialysis
--- NOTE | 2018-08-13 13:59 | PN ---
Progress Note, [employer] - Note Progress Note: Selected Entries 08/12/18 08/12/18 08/12/18 02:00 06:00 08:59 Lunch Temperature 100.1 F H 99.4 F 101.4 F H 08/12/18 08/12/18 08/12/18 15:27 15:41 19:00 Lunch 25% Temperature 98.2 F 100.0 F H 08/13/18 08/13/18 08/13/18 02:42 06:43 10:58 Lunch Temperature 99.4 F 98.9 F 102.0 F H Laboratory Tests 08/11/18 08/12/18 08/13/18 16:27 13:30 11:18 WBC 22.8 H 19.7 H 15.7 H Lactic Acid 08/13/18 11:18 WBC Lactic Acid 2.5 H* CT head (-) Medical events noted. Shaking this am. Pt has cough.Upper airway congestion? CXR (-) NPO pending further w/u Discussed PEG with possible PO intake in future following mbs to r/o aspiration.
[2018-08-13] MEDS: SODIUM CHLORIDE 1,000 ML IV SCH (14:45)
[2018-08-13] MEDS: VANCOMYCIN 1 GRAM (PRE-DOCKED) 1,000 MG/250 ML BAG IVPB SCH ×2 (14:47→15:04)
--- NOTE | 2018-08-13 16:20 | EKG ---
Test Reason : Blood Pressure : / mmHG Vent. Rate : 116 BPM Atrial Rate : 116 BPM P-R Int : 124 ms QRS Dur : 064 ms QT Int : 296 ms P-R-T Axes : 045 -30 036 degrees QTc Int : 411 ms POOR DATA QUALITY, INTERPRETATION MAY BE ADVERSELY AFFECTED SINUS TACHYCARDIA LEFT AXIS DEVIATION Tremor artifact ABNORMAL ECG Confirmed by MD ROGELIO, GABBIE ([id number]) on 08/13/2018 4:20:51 PM Referred By: [facility] Confirmed By:GABBIE MERCADO MD
[2018-08-13] MEDS ORDERED: INSULIN (NOVOLOG) ASPART 100 UNITS/ML 10ML VIAL ONE (17:14)
[2018-08-13] MEDS ORDERED: PT OWN MED DRAWER 7, Y5N ONE (17:14)
[2018-08-13] MEDS: DONEPEZIL HCL 10 MG TABLET (FP) PO SCH (21:26)
[2018-08-13] MEDS: THIAMINE HCL 100 MG TABLET (FP) PO SCH (21:27)
[2018-08-13 22:14] LABS: URINE APPEARANCE SLCLOUDY; URINE BILIRUBIN NEGATIVE (<2.0 mg/dL); URINE COLOR DKYELLOW; URINE GLUCOSE (UA) NEGATIVE (NEGATIVE); URINE KETONE NEGATIVE (NEGATIVE); URINE LEUK ESTERASE NEGATIVE (NEGATIVE); URINE NITRITE NEGATIVE (NEGATIVE); URINE PROTEIN 1+ (NEGATIVE); URINE UROBILINOGEN NEGATIVE mg/dL (0.2-1.0)
[2018-08-13 22:34] LABS: CALCIUM OXALATE CRYSTALS RARE /hpf (NONE SEEN); EPI CELLS RARE /HPF (FEW); URINE MUCUS RARE
[2018-08-14] MEDS ORDERED: PIPERACILLIN/TAZOBACTAM 3.375 GM VIAL IVPB ONE ×3 (00:24→18:52)
[2018-08-14] MEDS ORDERED: DEXTROSE 5%-WATER - 50 ML IVPB ONE ×3 (00:24→18:52)
[2018-08-14] MEDS: PIPERACILLIN/TAZOB 3.375 GM 3.375 GM in DEXTROSE 5%-WATER - 50 ML IVPB SCH ×3 (01:22→18:54)
[2018-08-14] MEDS: VANCOMYCIN 1,250 MG in DEXTROSE 5%-WATER - 250 ML IVPB SCH (02:06)
[2018-08-14] MEDS: SODIUM CHLORIDE 1,000 ML IV SCH (05:45)
[2018-08-14] MEDS: HEPARIN NA (PORCINE) 5,000 UNITS/ML 1ML VIAL SQ SCH ×3 (05:45→23:25)
[2018-08-14] MEDS: INSULIN SLIDING SCALE (NOVOLOG) 1 VIAL SQ SCH ×3 (06:03→17:30)
--- NOTE | 2018-08-14 11:14 | PN ---
Progress Note, Physician History of Present Illness: no changes still spiking for fevers - Current Medication List Current Medications: Active Medications Acetaminophen (Ofirmev Injection -) 1,000 mg IVPB Q6H PRN PRN Reason: FEVER Ascorbic Acid (Vitamin C -) 500 mg PO DAILY [facility] Last Admin: 08/13/18 10:47 Dose: Not Given Aspirin (Asa -) 81 mg PO DAILY [facility] Last Admin: 08/13/18 10:47 Dose: Not Given Donepezil HCl (Aricept -) 10 mg PO HS [facility] Last Admin: 08/13/18 21:26 Dose: Not Given Heparin Sodium (Porcine) (Heparin -) 5,000 unit SQ TID [facility] Last Admin: 08/14/18 05:45 Dose: 5,000 unit Piperacillin Sod/Tazobactam (Sod 3.375 gm/ Dextrose) 50 mls @ 100 mls/hr IVPB Q8H-IV [facility]; Protocol Last Admin: 08/14/18 01:22 Dose: 100 mls/hr Vancomycin HCl 1,250 mg/ (Dextrose) 250 mls @ 166.667 mls/hr IVPB Q24H [facility] Last Admin: 08/14/18 02:06 Dose: 166.667 mls/hr Vancomycin HCl (Vancomycin (Pre-Docked)) 1,000 mg in 250 mls @ 166.667 mls/hr IVPB Q24H [facility]; Protocol Last Admin: 08/13/18 15:04 Dose: 166.667 mls/hr Sodium Chloride (Normal Saline -) 1,000 mls @ 100 mls/hr IV ASDIR [facility] Last Admin: 08/14/18 05:45 Dose: 100 mls/hr Insulin Aspart (Novolog Vial Sliding Scale -) 1 vial SQ ACHS [facility]; Protocol Last Admin: 08/14/18 06:03 Dose: Not Given Lorazepam (Ativan Injection -) 1 mg IVPUSH Q6H PRN PRN Reason: seizures Prednisone (Deltasone -) 50 mg PO DAILY [facility] Last Admin: 08/13/18 10:47 Dose: Not Given Thiamine HCl (Vitamin B1 -) 100 mg PO HS [facility] Last Admin: 08/13/18 21:27 Dose: Not Given Valproate Sodium (Depacon Injection -) 250 mg IVPB BID [facility] Last Admin: 08/13/18 21:39 Dose: 250 mg Zinc Sulfate (Orazinc -) 220 mg PO DAILY@0800 [facility] Last Admin: 08/13/18 10:46 Dose: Not Given - Objective Vital Signs: Vital Signs Temperature 99.4 F 08/14/18 06:00 Pulse Rate 90 08/14/18 10:34 Respiratory Rate 20 08/14/18 10:34 Blood Pressure 145/80 08/14/18 10:34 O2 Sat by Pulse Oximetry (%) 98 08/13/18 09:00 Constitutional: Yes: Other Cardiovascular: Yes: S1, S2 Respiratory: Yes: Poor Air Entry Gastrointestinal: Yes: Normal Bowel Sounds, Soft Musculoskeletal: Yes: WNL Extremities: Yes: WNL Neurological: Yes: Alert, Other Labs: CBC, BMP 08/13/18 11:18 08/13/18 11:18 INR, PTT INR 1.29 (0.83-1.09) H 07/29/18 05:15 Assessment/Plan also now patient is coughing and producing sputum Altered Mental Status r/o Neuroleptic Malignant Syndrome r/o Seizures Seizure Disorder h/o CVA Schizophrenia Alzheimer's Dementia drug reaction mrsa pneumonia plan asp precautions final plan monitor fevers continue abx rest as per the team
[2018-08-14] MEDS: predniSONE 20 MG TABLET (UD) PO SCH (11:40)
[2018-08-14] MEDS: ZINC SULFATE 220 MG CAPSULE (FP) PO SCH (11:40)
[2018-08-14] MEDS: ASPIRIN 81 MG CHEWABLE TABLETS PO SCH (11:40)
[2018-08-14] MEDS: ASCORBIC ACID 500 MG TABLET (FP) PO SCH (11:41)
--- NOTE | 2018-08-14 11:56 | PN ---
Physical Exam: SUBJECTIVE: Patient seen and examined at the bedside. Sister present. patient more interactive, but remains rigid. OBJECTIVE: Vital Signs Period Temp Pulse Resp BP Sys/Cortes Pulse Ox Last 24 Hr 98.3 F-99.5 F 82-90 20-20 99-145/66-80 GENERAL: in no acute distress. eyes open, more awake and alert. HEAD: Normal with no signs of trauma. EYES: PERRL, extraocular movements intact, sclera anicteric, conjunctiva clear. No ptosis. ENT: Ears normal, nares patent, oropharynx clear without exudates, moist mucous membranes - ngt feeds NECK: Trachea midline, full range of motion, supple. LUNGS: Breath sounds equal, clear to auscultation anteriorly HEART: Regular rate and rhythm ABDOMEN: Soft, nontender, nondistended, normoactive bowel sounds EXTREMITIES: no edema. bilateral hips with pressure associated redness, right ear with healed pressure sore, heals reddened. NEUROLOGICAL: awake and more alert, brief eye contract Laboratory Results - last 24 hr 08/13/18 08/13/18 08/13/18 11:18 11:18 11:18 WBC 15.7 H RBC 3.87 L Hgb 11.9 Hct 35.6 MCV 92.0 MCH 30.7 MCHC 33.3 RDW 15.5 Plt Count 186 MPV 9.8 Absolute Neuts (auto) 13.3 H Neutrophils % 85.1 H Lymphocytes % 8.4 D Monocytes % 6.0 D Eosinophils % 0.2 D Basophils % 0.3 Nucleated RBC % 0 Sodium 141 Potassium 4.0 Chloride 106 Carbon Dioxide 24 Anion Gap 10 BUN 13 Creatinine 0.7 Creat Clearance w eGFR > 60 POC Glucometer Random Glucose 118 H Lactic Acid 2.5 H* Calcium 8.5 Total Bilirubin 0.8 AST 38 H ALT 69 H Alkaline Phosphatase 95 Troponin I 0.03 Total Protein 6.0 L Albumin 2.6 L Urine Color Urine Appearance Urine pH Ur Specific [place] Urine Protein Urine Glucose (UA) Urine Ketones Urine Blood Urine Nitrite Urine Bilirubin Urine Urobilinogen Ur Leukocyte Esterase Urine WBC (Auto) Urine RBC (Auto) Ur Epithelial Cells Calcium Oxalate Crystal Urine Mucus Influenza A (Rapid) Influenza B (Rapid) 08/13/18 08/13/18 08/13/18 11:20 16:27 20:00 WBC RBC Hgb Hct MCV MCH MCHC RDW Plt Count MPV Absolute Neuts (auto) Neutrophils % Lymphocytes % Monocytes % Eosinophils % Basophils % Nucleated RBC % Sodium Potassium Chloride Carbon Dioxide Anion Gap BUN Creatinine Creat Clearance w eGFR POC Glucometer 119 Random Glucose Lactic Acid Calcium Total Bilirubin AST ALT Alkaline Phosphatase Troponin I 0.05 Total Protein Albumin Urine Color Urine Appearance Urine pH Ur Specific [place] Urine Protein Urine Glucose (UA) Urine Ketones Urine Blood Urine Nitrite Urine Bilirubin Urine Urobilinogen Ur Leukocyte Esterase Urine WBC (Auto) Urine RBC (Auto) Ur Epithelial Cells Calcium Oxalate Crystal Urine Mucus Influenza A (Rapid) Negative Influenza B (Rapid) Negative 08/13/18 08/13/18 08/13/18 21:30 21:43 Unknown WBC RBC Hgb Hct MCV MCH MCHC RDW Plt Count MPV Absolute Neuts (auto) Neutrophils % Lymphocytes % Monocytes % Eosinophils % Basophils % Nucleated RBC % Sodium Potassium Chloride Carbon Dioxide Anion Gap BUN Creatinine Creat Clearance w eGFR POC Glucometer 97 Random Glucose Lactic Acid 1.1 Calcium Total Bilirubin AST ALT Alkaline Phosphatase Troponin I Total Protein Albumin Urine Color Dkyellow Urine Appearance Slcloudy Urine pH 5.0 Ur Specific [place] 1.036 H Urine Protein 1+ H Urine Glucose (UA) Negative Urine Ketones Negative Urine Blood 2+ H Urine Nitrite Negative Urine Bilirubin Negative Urine Urobilinogen Negative Ur Leukocyte Esterase Negative Urine WBC (Auto) 3 Urine RBC (Auto) 153 Ur Epithelial Cells Rare Calcium Oxalate Crystal Rare Urine Mucus Rare Influenza A (Rapid) Influenza B (Rapid) 08/14/18 05:47 WBC RBC Hgb Hct MCV MCH MCHC RDW Plt Count MPV Absolute Neuts (auto) Neutrophils % Lymphocytes % Monocytes % Eosinophils % Basophils % Nucleated RBC % Sodium Potassium Chloride Carbon Dioxide Anion Gap BUN Creatinine Creat Clearance w eGFR POC Glucometer 91 Random Glucose Lactic Acid Calcium Total Bilirubin AST ALT Alkaline Phosphatase Troponin I Total Protein Albumin Urine Color Urine Appearance Urine pH Ur Specific [place] Urine Protein Urine Glucose (UA) Urine Ketones Urine Blood Urine Nitrite Urine Bilirubin Urine Urobilinogen Ur Leukocyte Esterase Urine WBC (Auto) Urine RBC (Auto) Ur Epithelial Cells Calcium Oxalate Crystal Urine Mucus Influenza A (Rapid) Influenza B (Rapid) Active Medications Generic Name Dose Route Start Last Admin Trade Name Freq PRN Reason Stop Dose Admin Acetaminophen 1,000 mg 08/12/18 12:27 Ofirmev Injection - IVPB Q6H PRN FEVER Ascorbic Acid 500 mg 08/01/18 10:00 08/14/18 11:41 Vitamin C - PO Not Given DAILY [facility] Aspirin 81 mg 08/01/18 10:00 08/14/18 11:40 Asa - PO Not Given DAILY [facility] Donepezil HCl 10 mg 08/01/18 22:00 08/13/18 21:26 Aricept - PO Not Given HS [facility] Heparin Sodium (Porcine) 5,000 unit 08/08/18 14:00 08/14/18 05:45 Heparin - SQ 5,000 unit TID [facility] Administration Piperacillin Sod/Tazobactam 50 mls @ 100 mls/hr 08/08/18 14:30 08/14/18 01:22 Sod 3.375 gm/ Dextrose IVPB 100 mls/hr Q8H-IV [facility] Administration Protocol Vancomycin HCl 1,250 mg/ 250 mls @ 166.667 mls/hr 08/13/18 02:00 08/14/18 02: 06 Dextrose IVPB 166.667 mls/hr Q24H [facility] Administration Vancomycin HCl 1,000 mg in 250 mls @ 166.667 mls/hr 08/13/18 14:00 08/13/18 15:04 Vancomycin (Pre-Docked) IVPB 166.667 mls/hr Q24H [facility] Administration Protocol Sodium Chloride 1,000 mls @ 100 mls/hr 08/13/18 13:30 08/14/18 05:45 Normal Saline - IV 100 mls/hr ASDIR [facility] Administration Insulin Aspart 1 vial 08/13/18 11:00 08/14/18 06:03 Novolog Vial Sliding Scale - SQ Not Given ACHS [facility] Protocol Lorazepam 1 mg 08/13/18 10:54 Ativan Injection - IVPUSH Q6H PRN seizures Prednisone 50 mg 08/11/18 11:50 08/14/18 11:40 Deltasone - PO Not Given DAILY [facility] Thiamine HCl 100 mg 08/07/18 22:00 08/13/18 21:27 Vitamin B1 - PO Not Given HS [facility] Valproate Sodium 250 mg 08/13/18 10:15 08/13/18 21:39 Depacon Injection - IVPB 250 mg BID [facility] Administration Zinc Sulfate 220 mg 08/07/18 10:42 08/14/18 11:40 Orazinc - PO Not Given DAILY@0800 [facility] ASSESSMENT/PLAN: Patient is a 62 year old male with history of dementia, prior alcohol abuse, CVA 's, and hyperlipidemia. He presented to the ED with an altered mental status, poor oral intake of oral foods and fluids. Patient was reportedly on haldol and seroquel and has been more lethargic with increased muscle rigidity from [place]. ID: Acute metabolic encephalopathy, improving. mental status improved, but still lethargic and less interactive, febrile 101 today lactic acid now normalized all labs reviewed. flu swab negative chest xray unchanged. Patient to remain on seizure precautions. Mrsa pneumonia Blood cultures negative, +mrsa on sputum, on vancomycin and zosyn per id. monitor fever curve. repeat blood cultures negative. Renal Hypernatremia, resolved. Neuro: Seizure Disorder h/o CVA Schizophrenia Alzheimer's Dementia On ASA 81mg On Valproate 250mg IV BID, Donepezil 10mg PO hs. GI elevated ast/alt, trending down hx of etoh abuse on thiamine, folate, multivitamin fen NS @ 100cc/hr. started on clinimax monitor electrolytes keep npo swallow eval ongoing. full code Visit type - Emergency Visit Emergency Visit: Yes ED Registration Date: 07/28/18 Care time: The patient presented to the Emergency Department on the above date and was hospitalized for further evaluation of their emergent condition. - New Patient This patient is new to me today: No - Critical Care Critical Care patient: No - Discharge Referral Referred to [facility] Med P.C.: No
[2018-08-14] MEDS ORDERED: PT OWN MED DRAWER 7, Y5N ONE ×2 (12:55→22:45)
[2018-08-14] MEDS: VALPROATE SODIUM 500 MG/5 ML VIAL IVPB SCH ×2 (13:14→23:25)
[2018-08-14] MEDS: AMINO ACIDS 4.25%/D5W 1,000 ML IV SCH (14:45)
[2018-08-14] MEDS: VANCOMYCIN 1 GRAM (PRE-DOCKED) 1,000 MG/250 ML BAG IVPB SCH (15:12)
[2018-08-14] MEDS: ACETAMINOPHEN 1000 MG/100 ML VIAL (NON FORMULARY) IVPB PRN (18:55)
[2018-08-14] MEDS: DONEPEZIL HCL 10 MG TABLET (FP) PO SCH (22:47)
[2018-08-14] MEDS: THIAMINE HCL 100 MG TABLET (FP) PO SCH (22:47)
[2018-08-15] MEDS: INSULIN SLIDING SCALE (NOVOLOG) 1 VIAL SQ SCH ×5 (00:03→23:10)
[2018-08-15] MEDS ORDERED: DEXTROSE 5%-WATER - 50 ML IVPB ONE ×2 (01:48→11:48)
[2018-08-15] MEDS ORDERED: PIPERACILLIN/TAZOBACTAM 3.375 GM VIAL IVPB ONE ×2 (01:48→11:48)
[2018-08-15] MEDS: VANCOMYCIN 1,250 MG in DEXTROSE 5%-WATER - 250 ML IVPB SCH (02:30)
[2018-08-15] MEDS: PIPERACILLIN/TAZOB 3.375 GM 3.375 GM in DEXTROSE 5%-WATER - 50 ML IVPB SCH ×2 (03:45→11:51)
[2018-08-15] MEDS: HEPARIN NA (PORCINE) 5,000 UNITS/ML 1ML VIAL SQ SCH ×3 (07:04→22:26)
[2018-08-15] MEDS: AMINO ACIDS 4.25%/D5W 1,000 ML IV SCH ×2 (07:15→12:49)
--- NOTE | 2018-08-15 09:54 | PN ---
Physical Exam: SUBJECTIVE: Patient seen and examined at the bedside. lethargic, eyes opened, can track me at times. has increased temporal wasting. OBJECTIVE: on clinimax still with persistent fevers? has been pancultured. will order doppler to rule out dvt of possible cause of fevers Vital Signs Period Temp Pulse Resp BP Sys/Cortes Pulse Ox Last 24 Hr 98.3 F-101.8 F 82-97 18-20 127-155/68-82 97-97 GENERAL: in no acute distress. eyes open, more awake and alert. HEAD: Normal with no signs of trauma. EYES: PERRL, extraocular movements intact, sclera anicteric, conjunctiva clear. No ptosis. ENT: Ears normal, nares patent, oropharynx clear without exudates, moist mucous membranes - ngt feeds NECK: Trachea midline, full range of motion, supple. LUNGS: Breath sounds equal, clear to auscultation anteriorly HEART: Regular rate and rhythm ABDOMEN: Soft, nontender, nondistended, normoactive bowel sounds EXTREMITIES: no edema. bilateral hips with pressure associated redness, right ear with healed pressure sore, heals reddened. NEUROLOGICAL: awake and more alert, brief eye contract Laboratory Results - last 24 hr 08/14/18 08/14/18 08/14/18 12:06 17:28 23:56 POC Glucometer 88 130 117 08/15/18 07:06 POC Glucometer 101 Active Medications Generic Name Dose Route Start Last Admin Trade Name Freq PRN Reason Stop Dose Admin Acetaminophen 1,000 mg 08/12/18 12:27 08/14/18 18:55 Ofirmev Injection - IVPB 1,000 mg Q6H PRN Administration FEVER Ascorbic Acid 500 mg 08/01/18 10:00 08/14/18 11:41 Vitamin C - PO Not Given DAILY [facility] Aspirin 81 mg 08/01/18 10:00 08/14/18 11:40 Asa - PO Not Given DAILY [facility] Donepezil HCl 10 mg 08/01/18 22:00 08/14/18 22:47 Aricept - PO Not Given HS [facility] Heparin Sodium (Porcine) 5,000 unit 08/08/18 14:00 08/15/18 07:04 Heparin - SQ 5,000 unit TID [facility] Administration Piperacillin Sod/Tazobactam 50 mls @ 100 mls/hr 08/08/18 14:30 08/15/18 03:45 Sod 3.375 gm/ Dextrose IVPB 100 mls/hr Q8H-IV [facility] Administration Protocol Vancomycin HCl 1,250 mg/ 250 mls @ 166.667 mls/hr 08/13/18 02:00 08/15/18 02: 30 Dextrose IVPB 166.667 mls/hr Q24H [facility] Administration Vancomycin HCl 1,000 mg in 250 mls @ 166.667 mls/hr 08/13/18 14:00 08/14/18 15:12 Vancomycin (Pre-Docked) IVPB 166.667 mls/hr Q24H [facility] Administration Protocol Amino Acids 1,000 mls @ 42 mls/hr 08/14/18 12:00 08/15/18 07:15 Clinimix - IV Not Given Q12H [facility] Insulin Aspart 1 vial 08/13/18 11:00 08/15/18 07:15 Novolog Vial Sliding Scale - SQ Not Given ACHS [facility] Protocol Lorazepam 1 mg 08/13/18 10:54 Ativan Injection - IVPUSH Q6H PRN seizures Prednisone 40 mg 08/14/18 12:03 Deltasone - PO DAILY [facility] Thiamine HCl 100 mg 08/07/18 22:00 08/14/18 22:47 Vitamin B1 - PO Not Given HS [facility] Valproate Sodium 250 mg 08/13/18 10:15 08/14/18 23:25 Depacon Injection - IVPB 250 mg BID [facility] Administration Zinc Sulfate 220 mg 08/07/18 10:42 08/14/18 11:40 Orazinc - PO Not Given DAILY@0800 [facility] ASSESSMENT/PLAN: Patient is a 62 year old male with history of dementia, prior alcohol abuse, CVA 's, and hyperlipidemia. He presented to the ED with an altered mental status, poor oral intake of oral foods and fluids. Patient was reportedly on haldol and seroquel and has been more lethargic with increased muscle rigidity from [place]. ID: Acute metabolic encephalopathy, improving. mental status improved, but still lethargic and less interactive, febrile again 101 today. blood and urine cultures negative. lactic acid now normalized chest xray unchanged. Unclear why he is still having fevers. blood and urine cultures are negative and is being covered with vanco and zosyn. Fevers, persistent Patient under treatment for mrs pneumonia but fevers persist. blood and urine cultures negative. lactic acid normal has chronic wounds on hip and foot will order doppler of lower ext to rule out dvt. Mrsa pneumonia Blood cultures negative, +mrsa on sputum, on vancomycin and zosyn per id. repeat blood cultures negative. Renal Hypernatremia, resolved. Neuro: Seizure Disorder h/o CVA Schizophrenia Alzheimer's Dementia On ASA 81mg On Valproate 250mg IV BID, Donepezil 10mg PO hs. GI elevated ast/alt, trending down hx of etoh abuse fen started on clinimax monitor electrolytes keep npo, possible peg tube once no longer febrile. swallow eval ongoing. full code Visit type - Emergency Visit Emergency Visit: Yes ED Registration Date: 07/28/18 Care time: The patient presented to the Emergency Department on the above date and was hospitalized for further evaluation of their emergent condition. - New Patient This patient is new to me today: No - Critical Care Critical Care patient: No - Discharge Referral Referred to [facility] Med P.C.: No
[2018-08-15 10:20] LABS: BASO % 0.2 % (0-2.0); EOS % 0.5 % (0-4.5); HEMATOCRIT 33.4 % (35.4-49); HEMOGLOBIN 11.2 GM/dL (11.7-16.9); LYMPH % 11.1 % (8-40); MCH 30.8 pg (25.7-33.7); MCHC 33.4 g/dl (32.0-35.9); MEAN CELL VOLUME 92.3 fl (80-96); MEAN PLT VOLUME 9.9 fl (7.5-11.1); NEUT % 82.2 % (42.8-82.8); PLATELET COUNT 171 K/MM3 (134-434); RBC 3.62 M/mm3 (4.00-5.60); RDW 15.9 % (11.9-15.9)
[2018-08-15 11:03] LABS: ALBUMIN 2.5 g/dl (3.4-5.0); ALK PHOS 83 U/L (45-117); ANION GAP 6 MMOL/L (8-16); BILIRUBIN,TOTAL 0.6 mg/dL (0.2-1); BLOOD UREA NITROGEN 9 mg/dL (7-18); CHLORIDE 109 mmol/L (98-107); CO2 27 mmol/L (21-32); CREATININE 0.6 mg/dL (0.55-1.3); GLUCOSE,RANDOM 97 mg/dL (74-106); MAGNESIUM 2.6 mg/dL (1.8-2.4); POTASSIUM 3.5 mmol/L (3.5-5.1); SGOT/AST 40 U/L (15-37); SGPT/ALT 49 U/L (13-61); SODIUM 142 mmol/L (136-145); TOT PROT 5.7 g/dl (6.4-8.2)
[2018-08-15] MEDS: ZINC SULFATE 220 MG CAPSULE (FP) PO SCH (11:04)
[2018-08-15] MEDS: predniSONE 20 MG TABLET (UD) PO SCH (11:04)
[2018-08-15] MEDS: ASPIRIN 81 MG CHEWABLE TABLETS PO SCH (11:04)
[2018-08-15] MEDS: ASCORBIC ACID 500 MG TABLET (FP) PO SCH (11:05)
[2018-08-15] MEDS ORDERED: ACETAMINOPHEN 650 MG SUPP.RECT PR ONE (11:41)
[2018-08-15] MEDS ORDERED: PT OWN MED DRAWER 7, Y5N ONE ×4 (11:55→22:46)
[2018-08-15] MEDS: VALPROATE SODIUM 500 MG/5 ML VIAL IVPB SCH ×2 (12:56→22:59)
--- NOTE | 2018-08-15 14:04 | PN ---
Progress Note, Physician History of Present Illness: continues to spike fever clinically awake stable otherwise - Current Medication List Current Medications: Active Medications Acetaminophen (Ofirmev Injection -) 1,000 mg IVPB Q6H PRN PRN Reason: FEVER Last Admin: 08/14/18 18:55 Dose: 1,000 mg Ascorbic Acid (Vitamin C -) 500 mg PO DAILY [facility] Last Admin: 08/15/18 11:05 Dose: Not Given Aspirin (Asa -) 81 mg PO DAILY [facility] Last Admin: 08/15/18 11:04 Dose: Not Given Donepezil HCl (Aricept -) 10 mg PO HS [facility] Last Admin: 08/14/18 22:47 Dose: Not Given Heparin Sodium (Porcine) (Heparin -) 5,000 unit SQ TID [facility] Last Admin: 08/15/18 07:04 Dose: 5,000 unit Piperacillin Sod/Tazobactam (Sod 3.375 gm/ Dextrose) 50 mls @ 100 mls/hr IVPB Q8H-IV [facility]; Protocol Last Admin: 08/15/18 11:51 Dose: 100 mls/hr Vancomycin HCl 1,250 mg/ (Dextrose) 250 mls @ 166.667 mls/hr IVPB Q24H [facility] Last Admin: 08/15/18 02:30 Dose: 166.667 mls/hr Vancomycin HCl (Vancomycin (Pre-Docked)) 1,000 mg in 250 mls @ 166.667 mls/hr IVPB Q24H [facility]; Protocol Last Admin: 08/14/18 15:12 Dose: 166.667 mls/hr Amino Acids (Clinimix -) 1,000 mls @ 42 mls/hr IV Q24H [facility] Last Admin: 08/15/18 12:49 Dose: 42 mls/hr Insulin Aspart (Novolog Vial Sliding Scale -) 1 vial SQ ACHS [facility]; Protocol Last Admin: 08/15/18 13:18 Dose: Not Given Lorazepam (Ativan Injection -) 1 mg IVPUSH Q6H PRN PRN Reason: seizures Prednisone (Deltasone -) 40 mg PO DAILY [facility] Last Admin: 08/15/18 11:04 Dose: Not Given Thiamine HCl (Vitamin B1 -) 100 mg PO HS [facility] Last Admin: 08/14/18 22:47 Dose: Not Given Valproate Sodium (Depacon Injection -) 250 mg IVPB BID [facility] Last Admin: 08/15/18 12:56 Dose: 250 mg Zinc Sulfate (Orazinc -) 220 mg PO DAILY@0800 [facility] Last Admin: 08/15/18 11:04 Dose: Not Given - Objective Vital Signs: Vital Signs Temperature 101.9 F H 08/15/18 11:06 Pulse Rate 92 H 08/15/18 10:40 Respiratory Rate 20 08/15/18 10:40 Blood Pressure 137/71 08/15/18 10:40 O2 Sat by Pulse Oximetry (%) 97 08/14/18 21:00 Constitutional: Yes: No Distress Cardiovascular: Yes: Regular Rate and Rhythm Respiratory: Yes: Regular, On Nasal O2, Poor Air Entry Gastrointestinal: Yes: Normal Bowel Sounds, Soft Musculoskeletal: Yes: WNL Extremities: Yes: WNL Neurological: Yes: Alert, Other Labs: CBC, BMP 08/15/18 09:25 08/15/18 09:25 INR, PTT INR 1.29 (0.83-1.09) H 07/29/18 05:15 Assessment/Plan after looking at the history and to see how the patient came with along with infection i am worried that the symptoms could be due to drugs which patient was been given for agitation also now patient is coughing and producing sputum Altered Mental Status r/o Neuroleptic Malignant Syndrome r/o Seizures Seizure Disorder h/o CVA Schizophrenia Alzheimer's Dementia drug reaction mrsa pneumonia wbc decreasing plan will stop zosyn continue vanco if continues to spike will do imaging studies rest as per the team
[2018-08-15] MEDS: VANCOMYCIN 1 GRAM (PRE-DOCKED) 1,000 MG/250 ML BAG IVPB SCH (14:30)
[2018-08-15] MEDS: DONEPEZIL HCL 10 MG TABLET (FP) PO SCH (22:26)
[2018-08-15] MEDS: THIAMINE HCL 100 MG TABLET (FP) PO SCH (22:26)
[2018-08-16] MEDS ORDERED: PT OWN MED DRAWER 7, Y5N ONE ×4 (01:21→22:16)
[2018-08-16] MEDS: VANCOMYCIN 1,250 MG in DEXTROSE 5%-WATER - 250 ML IVPB SCH (01:35)
[2018-08-16] MEDS: HEPARIN NA (PORCINE) 5,000 UNITS/ML 1ML VIAL SQ SCH ×3 (06:32→22:27)
[2018-08-16] MEDS: INSULIN SLIDING SCALE (NOVOLOG) 1 VIAL SQ SCH ×4 (07:12→22:26)
[2018-08-16] MEDS: ZINC SULFATE 220 MG CAPSULE (FP) PO SCH (08:03)
[2018-08-16 10:30] LABS: BASO % 0.3 % (0-2.0); EOS % 0.2 % (0-4.5); HEMATOCRIT 36.7 % (35.4-49); HEMOGLOBIN 12.9 GM/dL (11.7-16.9); LYMPH % 7.7 % (8-40); MCH 32.4 pg (25.7-33.7); MCHC 35.1 g/dl (32.0-35.9); MEAN CELL VOLUME 92.4 fl (80-96); MEAN PLT VOLUME 9.4 fl (7.5-11.1); NEUT % 85.8 % (42.8-82.8); PLATELET COUNT 185 K/MM3 (134-434); RBC 3.97 M/mm3 (4.00-5.60); RDW 16.2 % (11.9-15.9); WHITE BLOOD COUNT 14.6 K/mm3 (4.0-10.0)
[2018-08-16] MEDS: ASCORBIC ACID 500 MG TABLET (FP) PO SCH (10:52)
[2018-08-16] MEDS: predniSONE 20 MG TABLET (UD) PO SCH (10:52)
[2018-08-16] MEDS: ASPIRIN 81 MG CHEWABLE TABLETS PO SCH (10:52)
[2018-08-16] MEDS: VALPROATE SODIUM 500 MG/5 ML VIAL IVPB SCH ×2 (10:54→22:27)
--- NOTE | 2018-08-16 11:14 | PN ---
Progress Note, Physician History of Present Illness: patient continues to spike fever on vanco no specific causes of fevers all cx are negative - Current Medication List Current Medications: Active Medications Acetaminophen (Ofirmev Injection -) 1,000 mg IVPB Q6H PRN PRN Reason: FEVER Last Admin: 08/14/18 18:55 Dose: 1,000 mg Ascorbic Acid (Vitamin C -) 500 mg PO DAILY [facility] Last Admin: 08/16/18 10:52 Dose: Not Given Aspirin (Asa -) 81 mg PO DAILY [facility] Last Admin: 08/16/18 10:52 Dose: Not Given Donepezil HCl (Aricept -) 10 mg PO HS [facility] Last Admin: 08/15/18 22:26 Dose: Not Given Heparin Sodium (Porcine) (Heparin -) 5,000 unit SQ TID [facility] Last Admin: 08/16/18 06:32 Dose: 5,000 unit Vancomycin HCl 1,250 mg/ (Dextrose) 250 mls @ 166.667 mls/hr IVPB Q24H [facility] Last Admin: 08/16/18 01:35 Dose: 166.667 mls/hr Vancomycin HCl (Vancomycin (Pre-Docked)) 1,000 mg in 250 mls @ 166.667 mls/hr IVPB Q24H [facility]; Protocol Last Admin: 08/15/18 14:30 Dose: 166.667 mls/hr Amino Acids (Clinimix -) 1,000 mls @ 42 mls/hr IV Q24H [facility] Last Admin: 08/15/18 12:49 Dose: 42 mls/hr Insulin Aspart (Novolog Vial Sliding Scale -) 1 vial SQ ACHS [facility]; Protocol Last Admin: 08/16/18 07:12 Dose: Not Given Lorazepam (Ativan Injection -) 1 mg IVPUSH Q6H PRN PRN Reason: seizures Prednisone (Deltasone -) 40 mg PO DAILY [facility] Last Admin: 08/16/18 10:52 Dose: Not Given Thiamine HCl (Vitamin B1 -) 100 mg PO HS [facility] Last Admin: 08/15/18 22:26 Dose: Not Given Valproate Sodium (Depacon Injection -) 250 mg IVPB BID [facility] Last Admin: 08/16/18 10:54 Dose: 250 mg Zinc Sulfate (Orazinc -) 220 mg PO DAILY@0800 [facility] Last Admin: 08/16/18 08:03 Dose: Not Given - Objective Vital Signs: Vital Signs Temperature 99.9 F H 08/16/18 09:29 Pulse Rate 102 H 08/16/18 09:29 Respiratory Rate 18 08/16/18 09:29 Blood Pressure 145/83 08/16/18 09:29 O2 Sat by Pulse Oximetry (%) 96 08/15/18 21:00 Constitutional: Yes: No Distress Cardiovascular: Yes: S1, S2 Respiratory: Yes: Poor Air Entry Gastrointestinal: Yes: Normal Bowel Sounds, Soft Musculoskeletal: Yes: WNL Extremities: Yes: WNL Neurological: Yes: Other Psychiatric: Yes: Other Labs: CBC, BMP 08/16/18 09:50 INR, PTT INR 1.29 (0.83-1.09) H 07/29/18 05:15 Assessment/Plan also now patient is coughing and producing sputum Altered Mental Status r/o Neuroleptic Malignant Syndrome r/o Seizures Seizure Disorder h/o CVA Schizophrenia Alzheimer's Dementia drug reaction mrsa pneumonia plan asp precautions final plan monitor fevers continue abx rest as per the team
[2018-08-16 11:18] LABS: ALBUMIN 2.8 g/dl (3.4-5.0); ALK PHOS 90 U/L (45-117); ANION GAP 11 MMOL/L (8-16); BILIRUBIN,TOTAL 0.6 mg/dL (0.2-1); BLOOD UREA NITROGEN 12 mg/dL (7-18); CALCIUM 8.1 mg/dL (8.5-10.1); CHLORIDE 110 mmol/L (98-107); CO2 24 mmol/L (21-32); CREATININE 0.9 mg/dL (0.55-1.3); GLUCOSE,RANDOM 121 mg/dL (74-106); POTASSIUM 3.7 mmol/L (3.5-5.1); SGOT/AST 36 U/L (15-37); SGPT/ALT 48 U/L (13-61); SODIUM 145 mmol/L (136-145); TOT PROT 6.5 g/dl (6.4-8.2)
--- NOTE | 2018-08-16 11:19 | PN ---
Progress Note, Physician History of Present Illness: patient continues to spike fever plan for g tube - Current Medication List Current Medications: Active Medications Acetaminophen (Ofirmev Injection -) 1,000 mg IVPB Q6H PRN PRN Reason: FEVER Last Admin: 08/14/18 18:55 Dose: 1,000 mg Ascorbic Acid (Vitamin C -) 500 mg PO DAILY [facility] Last Admin: 08/16/18 10:52 Dose: Not Given Aspirin (Asa -) 81 mg PO DAILY [facility] Last Admin: 08/16/18 10:52 Dose: Not Given Donepezil HCl (Aricept -) 10 mg PO HS [facility] Last Admin: 08/15/18 22:26 Dose: Not Given Heparin Sodium (Porcine) (Heparin -) 5,000 unit SQ TID [facility] Last Admin: 08/16/18 06:32 Dose: 5,000 unit Vancomycin HCl 1,250 mg/ (Dextrose) 250 mls @ 166.667 mls/hr IVPB Q24H [facility] Last Admin: 08/16/18 01:35 Dose: 166.667 mls/hr Vancomycin HCl (Vancomycin (Pre-Docked)) 1,000 mg in 250 mls @ 166.667 mls/hr IVPB Q24H [facility]; Protocol Last Admin: 08/15/18 14:30 Dose: 166.667 mls/hr Amino Acids (Clinimix -) 1,000 mls @ 42 mls/hr IV Q24H [facility] Last Admin: 08/15/18 12:49 Dose: 42 mls/hr Insulin Aspart (Novolog Vial Sliding Scale -) 1 vial SQ ACHS [facility]; Protocol Last Admin: 08/16/18 11:14 Dose: Not Given Lorazepam (Ativan Injection -) 1 mg IVPUSH Q6H PRN PRN Reason: seizures Prednisone (Deltasone -) 40 mg PO DAILY [facility] Last Admin: 08/16/18 10:52 Dose: Not Given Thiamine HCl (Vitamin B1 -) 100 mg PO [facility] Last Admin: 08/15/18 22:26 Dose: Not Given Valproate Sodium (Depacon Injection -) 250 mg IVPB BID [facility] Last Admin: 08/16/18 10:54 Dose: 250 mg Zinc Sulfate (Orazinc -) 220 mg PO DAILY@0800 [facility] Last Admin: 08/16/18 08:03 Dose: Not Given - Objective Vital Signs: Vital Signs Temperature 99.9 F H 08/16/18 09:29 Pulse Rate 102 H 08/16/18 09:29 Respiratory Rate 18 08/16/18 09:29 Blood Pressure 145/83 08/16/18 09:29 O2 Sat by Pulse Oximetry (%) 96 08/15/18 21:00 Constitutional: Yes: No Distress Cardiovascular: Yes: Regular Rate and Rhythm Respiratory: Yes: Regular, CTA Bilaterally Gastrointestinal: Yes: Normal Bowel Sounds, Soft Musculoskeletal: Yes: WNL Extremities: Yes: Other Neurological: Yes: Alert, Other Labs: CBC, BMP 08/16/18 09:50 INR, PTT INR 1.29 (0.83-1.09) H 07/29/18 05:15 Assessment/Plan also now patient is coughing and producing sputum Altered Mental Status r/o Neuroleptic Malignant Syndrome r/o Seizures Seizure Disorder h/o CVA Schizophrenia Alzheimer's Dementia drug reaction mrsa pneumonia plan asp precautions final plan monitor fevers continue abx rest as per the team will check vanco trough
--- NOTE | 2018-08-16 12:03 | PN ---
Physical Exam: SUBJECTIVE: Patient seen and examined at the bedside. fevers persist. discussed with id. OBJECTIVE: sinus ct chest/abd/pelvis to rule out abscess - reason for persistent fevers? santyl to right unsteageable Vital Signs Period Temp Pulse Resp BP Sys/Cortes Pulse Ox Last 24 Hr 98.3 F-101.3 F 79-102 15-18 127-164/77-94 96 GENERAL: in no acute distress. eyes open, more awake and alert. HEAD: Normal with no signs of trauma. EYES: PERRL, extraocular movements intact, sclera anicteric, conjunctiva clear. No ptosis. ENT: Ears normal, nares patent, oropharynx clear without exudates, moist mucous membranes - ngt feeds NECK: Trachea midline, full range of motion, supple. LUNGS: Breath sounds equal, clear to auscultation anteriorly HEART: Regular rate and rhythm ABDOMEN: Soft, nontender, nondistended, normoactive bowel sounds EXTREMITIES: no edema. bilateral hips with pressure associated redness, right ear with healed pressure sore, heals reddened. unsteageable on right heel NEUROLOGICAL: awake and more alert, brief eye contract Laboratory Results - last 24 hr 08/15/18 08/15/18 08/15/18 13:04 18:40 23:07 WBC RBC Hgb Hct MCV MCH MCHC RDW Plt Count MPV Absolute Neuts (auto) Neutrophils % Lymphocytes % Monocytes % Eosinophils % Basophils % Nucleated RBC % Sodium Potassium Chloride Carbon Dioxide Anion Gap BUN Creatinine Creat Clearance w eGFR POC Glucometer 113 104 108 Random Glucose Calcium Total Bilirubin AST ALT Alkaline Phosphatase Total Protein Albumin 08/16/18 08/16/18 08/16/18 07:05 09:50 09:50 WBC 14.6 H RBC 3.97 L Hgb 12.9 Hct 36.7 MCV 92.4 MCH 32.4 MCHC 35.1 RDW 16.2 H Plt Count 185 MPV 9.4 Absolute Neuts (auto) 12.5 H Neutrophils % 85.8 H Lymphocytes % 7.7 L D Monocytes % 6.0 Eosinophils % 0.2 Basophils % 0.3 Nucleated RBC % 0 Sodium 145 Potassium 3.7 Chloride 110 H Carbon Dioxide 24 Anion Gap 11 BUN 12 Creatinine 0.9 Creat Clearance w eGFR > 60 POC Glucometer 125 Random Glucose 121 H Calcium 8.1 L Total Bilirubin 0.6 AST 36 ALT 48 Alkaline Phosphatase 90 Total Protein 6.5 Albumin 2.8 L 08/16/18 11:06 WBC RBC Hgb Hct MCV MCH MCHC RDW Plt Count MPV Absolute Neuts (auto) Neutrophils % Lymphocytes % Monocytes % Eosinophils % Basophils % Nucleated RBC % Sodium Potassium Chloride Carbon Dioxide Anion Gap BUN Creatinine Creat Clearance w eGFR POC Glucometer 124 Random Glucose Calcium Total Bilirubin AST ALT Alkaline Phosphatase Total Protein Albumin Active Medications Generic Name Dose Route Start Last Admin Trade Name Freq PRN Reason Stop Dose Admin Acetaminophen 1,000 mg 08/12/18 12:27 08/14/18 18:55 Ofirmev Injection - IVPB 1,000 mg Q6H PRN Administration FEVER Ascorbic Acid 500 mg 08/01/18 10:00 08/16/18 10:52 Vitamin C - PO Not Given DAILY [facility] Aspirin 81 mg 08/01/18 10:00 08/16/18 10:52 Asa - PO Not Given DAILY [facility] Donepezil HCl 10 mg 08/01/18 22:00 08/15/18 22:26 Aricept - PO Not Given HS [facility] Heparin Sodium (Porcine) 5,000 unit 08/08/18 14:00 08/16/18 06:32 Heparin - SQ 5,000 unit TID [facility] Administration Vancomycin HCl 1,250 mg/ 250 mls @ 166.667 mls/hr 08/13/18 02:00 08/16/18 01: 35 Dextrose IVPB 166.667 mls/hr Q24H [facility] Administration Vancomycin HCl 1,000 mg in 250 mls @ 166.667 mls/hr 08/13/18 14:00 08/15/18 14:30 Vancomycin (Pre-Docked) IVPB 166.667 mls/hr Q24H [facility] Administration Protocol Amino Acids 1,000 mls @ 42 mls/hr 08/15/18 11:33 08/15/18 12:49 Clinimix - IV 42 mls/hr Q24H [facility] Administration Insulin Aspart 1 vial 08/13/18 11:00 08/16/18 11:14 Novolog Vial Sliding Scale - SQ Not Given ACHS [facility] Protocol Lorazepam 1 mg 08/13/18 10:54 Ativan Injection - IVPUSH Q6H PRN seizures Prednisone 40 mg 08/14/18 12:03 08/16/18 10:52 Deltasone - PO Not Given DAILY [facility] Thiamine HCl 100 mg 08/07/18 22:00 08/15/18 22:26 Vitamin B1 - PO Not Given HS [facility] Valproate Sodium 250 mg 08/13/18 10:15 08/16/18 10:54 Depacon Injection - IVPB 250 mg BID [facility] Administration Zinc Sulfate 220 mg 08/07/18 10:42 08/16/18 08:03 Orazinc - PO Not Given DAILY@0800 [facility] ASSESSMENT/PLAN: Patient is a 62 year old male with history of dementia, prior alcohol abuse, CVA 's, and hyperlipidemia. He presented to the ED with an altered mental status, poor oral intake of oral foods and fluids. Patient was reportedly on haldol and seroquel and has been more lethargic with increased muscle rigidity from NH. ID: Acute metabolic encephalopathy, improving. mental status improved, but still lethargic and less interactive, febrile again 101 today. blood and urine cultures negative. lactic acid now normalized chest xray unchanged. Unclear why he is still having fevers. blood and urine cultures are negative and is being covered with vanco and zosyn. ct chest, abd/pelvis ordered to further evaluate Negative for dvt Fevers, persistent Patient under treatment for mrs pneumonia but fevers persist despite treatment blood and urine cultures negative. lactic acid normal has chronic wounds on hip and foot right heel with unsteageable wound, will order santyl Mrsa pneumonia Blood cultures negative, +mrsa on sputum, on vancomycin and zosyn per id. repeat blood cultures negative. Renal Hypernatremia, resolved. Neuro: Seizure Disorder h/o CVA Schizophrenia Alzheimer's Dementia On ASA 81mg On Valproate 250mg IV BID, Donepezil 10mg PO hs. GI elevated ast/alt, trending down hx of etoh abuse fen started on clinimax, will order for ngt feeds. and start vital per dietary monitor electrolytes keep npo, possible peg tube next week swallow eval ongoing. full code Visit type - Emergency Visit Emergency Visit: Yes ED Registration Date: 07/28/18 Care time: The patient presented to the Emergency Department on the above date and was hospitalized for further evaluation of their emergent condition. - New Patient This patient is new to me today: No - Critical Care Critical Care patient: No - Discharge Referral Referred to [facility] Med P.C.: No
[2018-08-16] MEDS: ACETAMINOPHEN 1000 MG/100 ML VIAL (NON FORMULARY) IVPB PRN ×2 (13:18→22:36)
[2018-08-16] MEDS: COLLAGENASE CLOSTRIDIUM HIST. 30 GRAMS TUBE TP SCH (16:02)
[2018-08-16] MEDS: VANCOMYCIN 1 GRAM (PRE-DOCKED) 1,000 MG/250 ML BAG IVPB SCH (16:02)
[2018-08-16] MEDS: AMINO ACIDS 4.25%/D5W 1,000 ML IV SCH (16:03)
[2018-08-16] MEDS: DONEPEZIL HCL 10 MG TABLET (FP) PO SCH (21:12)
[2018-08-16] MEDS: THIAMINE HCL 100 MG TABLET (FP) PO SCH (21:12)
[2018-08-17] MEDS: HEPARIN NA (PORCINE) 5,000 UNITS/ML 1ML VIAL SQ SCH ×3 (06:47→22:08)
[2018-08-17] MEDS: INSULIN SLIDING SCALE (NOVOLOG) 1 VIAL SQ SCH ×4 (06:50→22:49)
[2018-08-17 09:41] LABS: BASO % 0.6 % (0-2.0); EOS % 0.5 % (0-4.5); HEMATOCRIT 36.1 % (35.4-49); HEMOGLOBIN 12.3 GM/dL (11.7-16.9); LYMPH % 7.3 % (8-40); MCH 31.4 pg (25.7-33.7); MCHC 34.2 g/dl (32.0-35.9); MEAN CELL VOLUME 91.8 fl (80-96); MEAN PLT VOLUME 9.2 fl (7.5-11.1); MONO % 4.8 % (3.8-10.2); NEUT % 86.8 % (42.8-82.8); PLATELET COUNT 200 K/MM3 (134-434); RBC 3.93 M/mm3 (4.00-5.60); RDW 16.5 % (11.9-15.9); WHITE BLOOD COUNT 12.7 K/mm3 (4.0-10.0)
--- NOTE | 2018-08-17 10:02 | PN ---
Physical Exam: SUBJECTIVE: Patient seen and examined at the bedside. OBJECTIVE: chest xray to confirm ngt placement pending-start feeds all imaging reviewed, no obvious source of fevers Vital Signs Period Temp Pulse Resp BP Sys/Cortes Pulse Ox Last 24 Hr 99.0 F-101.5 F 81-93 18-18 131-140/78-92 98 GENERAL: in no acute distress. eyes open, more awake and alert. HEAD: Normal with no signs of trauma. EYES: PERRL, extraocular movements intact, sclera anicteric, conjunctiva clear. No ptosis. ENT: Ears normal, nares patent, oropharynx clear without exudates, moist mucous membranes - ngt feeds NECK: Trachea midline, full range of motion, supple. LUNGS: Breath sounds equal, clear to auscultation anteriorly HEART: Regular rate and rhythm ABDOMEN: Soft, nontender, nondistended, normoactive bowel sounds EXTREMITIES: no edema. bilateral hips with pressure associated redness, right ear with healed pressure sore, heals reddened. unsteageable on right heel NEUROLOGICAL: awake and more alert, brief eye contract Laboratory Results - last 24 hr 08/16/18 08/16/18 08/16/18 09:50 09:50 11:06 WBC 14.6 H RBC 3.97 L Hgb 12.9 Hct 36.7 MCV 92.4 MCH 32.4 MCHC 35.1 RDW 16.2 H Plt Count 185 MPV 9.4 Absolute Neuts (auto) 12.5 H Neutrophils % 85.8 H Lymphocytes % 7.7 L D Monocytes % 6.0 Eosinophils % 0.2 Basophils % 0.3 Nucleated RBC % 0 Sodium 145 Potassium 3.7 Chloride 110 H Carbon Dioxide 24 Anion Gap 11 BUN 12 Creatinine 0.9 Creat Clearance w eGFR > 60 POC Glucometer 124 Random Glucose 121 H Calcium 8.1 L Total Bilirubin 0.6 AST 36 ALT 48 Alkaline Phosphatase 90 Total Protein 6.5 Albumin 2.8 L Vancomycin Pre-Dose 08/16/18 08/16/18 08/16/18 12:50 16:40 22:21 WBC RBC Hgb Hct MCV MCH MCHC RDW Plt Count MPV Absolute Neuts (auto) Neutrophils % Lymphocytes % Monocytes % Eosinophils % Basophils % Nucleated RBC % Sodium Potassium Chloride Carbon Dioxide Anion Gap BUN Creatinine Creat Clearance w eGFR POC Glucometer 111 118 Random Glucose Calcium Total Bilirubin AST ALT Alkaline Phosphatase Total Protein Albumin Vancomycin Pre-Dose 22.9 08/17/18 08/17/18 06:49 09:10 WBC 12.7 H RBC 3.93 L Hgb 12.3 Hct 36.1 MCV 91.8 MCH 31.4 MCHC 34.2 RDW 16.5 H Plt Count 200 MPV 9.2 Absolute Neuts (auto) 11.0 H Neutrophils % 86.8 H Lymphocytes % 7.3 L Monocytes % 4.8 Eosinophils % 0.5 D Basophils % 0.6 Nucleated RBC % 0 Sodium Potassium Chloride Carbon Dioxide Anion Gap BUN Creatinine Creat Clearance w eGFR POC Glucometer 102 Random Glucose Calcium Total Bilirubin AST ALT Alkaline Phosphatase Total Protein Albumin Vancomycin Pre-Dose Active Medications Generic Name Dose Route Start Last Admin Trade Name Freq PRN Reason Stop Dose Admin Acetaminophen 1,000 mg 08/12/18 12:27 08/16/18 22:36 Ofirmev Injection - IVPB 1,000 mg Q6H PRN Administration FEVER Ascorbic Acid 500 mg 08/01/18 10:00 08/16/18 10:52 Vitamin C - PO Not Given DAILY [facility] Aspirin 81 mg 08/01/18 10:00 08/16/18 10:52 Asa - PO Not Given DAILY [facility] Collagenase 1 applic 08/16/18 12:15 08/16/18 16:02 Santyl - TP 1 applic DAILY [facility] Administration Protocol Donepezil HCl 10 mg 08/01/18 22:00 08/16/18 21:12 Aricept - PO Not Given HS [facility] Heparin Sodium (Porcine) 5,000 unit 08/08/18 14:00 08/17/18 06:47 Heparin - SQ 5,000 unit TID [facility] Administration Insulin Aspart 1 vial 08/13/18 11:00 08/17/18 06:50 Novolog Vial Sliding Scale - SQ Not Given ACHS [facility] Protocol Lorazepam 1 mg 08/13/18 10:54 Ativan Injection - IVPUSH Q6H PRN seizures Prednisone 40 mg 08/14/18 12:03 08/16/18 10:52 Deltasone - PO Not Given DAILY [facility] Thiamine HCl 100 mg 08/07/18 22:00 08/16/18 21:12 Vitamin B1 - PO Not Given HS [facility] Valproate Sodium 250 mg 08/13/18 10:15 08/16/18 22:27 Depacon Injection - IVPB 250 mg BID [facility] Administration Zinc Sulfate 220 mg 08/07/18 10:42 08/16/18 08:03 Orazinc - PO Not Given DAILY@0800 [facility] ASSESSMENT/PLAN: Patient is a 62 year old male with history of dementia, prior alcohol abuse, CVA 's, and hyperlipidemia. He presented to the ED with an altered mental status, poor oral intake of oral foods and fluids. Patient was reportedly on haldol and seroquel and has been more lethargic with increased muscle rigidity from [place]. ID: Acute metabolic encephalopathy lethargic and less interactive, febrile overnight. blood and urine cultures negative. lactic acid now normalized chest xray unchanged. Unclear why he is still having fevers. blood and urine cultures are negative and is being covered with vanco and zosyn. Fevers, persistent Patient under treatment for mrsa pneumonia but fevers persist. blood and urine cultures negative. lactic acid normal has chronic wounds on hip and foot negative for dvt all imaging reviewed chest ct, abd/pelvis ct, sinus ct. no obvious source of infection. some dental disease noted on report Mrsa pneumonia Blood cultures negative, +mrsa on sputum, on vancomycin and zosyn per id. repeat blood cultures negative. Renal Hypernatremia, resolved. Neuro: Seizure Disorder h/o CVA Schizophrenia Alzheimer's Dementia On ASA 81mg On Valproate 250mg IV BID, Donepezil 10mg PO hs. GI elevated ast/alt, trending down hx of etoh abuse fen monitor electrolytes ngt feeds with vital 1.2 with uptitrate as tolerated swallow eval ongoing. full code Visit type - Emergency Visit Emergency Visit: Yes ED Registration Date: 07/28/18 Care time: The patient presented to the Emergency Department on the above date and was hospitalized for further evaluation of their emergent condition. - New Patient This patient is new to me today: No - Critical Care Critical Care patient: No - Discharge Referral Referred to [facility] Med P.C.: No
[2018-08-17 10:21] LABS: ALBUMIN 2.9 g/dl (3.4-5.0); ALK PHOS 84 U/L (45-117); ANION GAP 8 MMOL/L (8-16); BLOOD UREA NITROGEN 15 mg/dL (7-18); CALCIUM 8.2 mg/dL (8.5-10.1); CHLORIDE 114 mmol/L (98-107); CO2 23 mmol/L (21-32); CREATININE 0.9 mg/dL (0.55-1.3); GLUCOSE,RANDOM 117 mg/dL (74-106); POTASSIUM 3.6 mmol/L (3.5-5.1); SGOT/AST 30 U/L (15-37); SGPT/ALT 40 U/L (13-61); SODIUM 145 mmol/L (136-145); TOT PROT 6.4 g/dl (6.4-8.2)
[2018-08-17] MEDS ORDERED: PT OWN MED DRAWER 7, Y5N ONE ×2 (10:36→17:10)
[2018-08-17] MEDS: VALPROATE SODIUM 500 MG/5 ML VIAL IVPB SCH ×2 (11:15→22:08)
[2018-08-17] MEDS: ACETAMINOPHEN 1000 MG/100 ML VIAL (NON FORMULARY) IVPB PRN (11:22)
[2018-08-17] MEDS: ZINC SULFATE 220 MG CAPSULE (FP) PO SCH (12:23)
[2018-08-17] MEDS: ASPIRIN 81 MG CHEWABLE TABLETS PO SCH (12:23)
[2018-08-17] MEDS: ASCORBIC ACID 500 MG TABLET (FP) PO SCH (12:23)
[2018-08-17] MEDS: predniSONE 20 MG TABLET (UD) PO SCH (12:23)
[2018-08-17] MEDS: COLLAGENASE CLOSTRIDIUM HIST. 30 GRAMS TUBE TP SCH (12:27)
--- NOTE | 2018-08-17 13:11 | PN ---
Progress Note, Physician History of Present Illness: fevers continues no other changes ng tube in place - Current Medication List Current Medications: Active Medications Ascorbic Acid (Vitamin C -) 500 mg PO DAILY [facility] Last Admin: 08/17/18 12:23 Dose: 500 mg Aspirin (Asa -) 81 mg PO DAILY [facility] Last Admin: 08/17/18 12:23 Dose: 81 mg Collagenase (Santyl -) 1 applic TP DAILY [facility]; Protocol Last Admin: 08/17/18 12:27 Dose: 1 applic Donepezil HCl (Aricept -) 10 mg PO HS [facility] Last Admin: 08/16/18 21:12 Dose: Not Given Heparin Sodium (Porcine) (Heparin -) 5,000 unit SQ TID [facility] Last Admin: 08/17/18 06:47 Dose: 5,000 unit Insulin Aspart (Novolog Vial Sliding Scale -) 1 vial SQ ACHS [facility]; Protocol Last Admin: 08/17/18 12:23 Dose: Not Given Lorazepam (Ativan Injection -) 1 mg IVPUSH Q6H PRN PRN Reason: seizures Prednisone (Deltasone -) 40 mg PO DAILY [facility] Last Admin: 08/17/18 12:23 Dose: 40 mg Thiamine HCl (Vitamin B1 -) 100 mg PO HS [facility] Last Admin: 08/16/18 21:12 Dose: Not Given Valproate Sodium (Depacon Injection -) 250 mg IVPB BID [facility] Last Admin: 08/17/18 11:15 Dose: 250 mg Zinc Sulfate (Orazinc -) 220 mg PO DAILY@0800 [facility] Last Admin: 08/17/18 12:23 Dose: 220 mg - Objective Vital Signs: Vital Signs Temperature 101.9 F H 08/17/18 10:00 Pulse Rate 109 H 08/17/18 10:00 Respiratory Rate 20 08/17/18 10:00 Blood Pressure 140/80 08/17/18 10:00 O2 Sat by Pulse Oximetry (%) 98 08/16/18 21:00 Constitutional: Yes: No Distress, Calm Cardiovascular: Yes: S1, S2 Respiratory: Yes: Regular, CTA Bilaterally Gastrointestinal: Yes: Normal Bowel Sounds, Soft Musculoskeletal: Yes: WNL Extremities: Yes: WNL Neurological: Yes: Alert, Other Labs: CBC, BMP 08/17/18 09:10 08/17/18 09:10 INR, PTT INR 1.29 (0.83-1.09) H 07/29/18 05:15 Assessment/Plan also now patient is coughing and producing sputum Altered Mental Status r/o Neuroleptic Malignant Syndrome r/o Seizures Seizure Disorder h/o CVA Schizophrenia Alzheimer's Dementia drug reaction mrsa pneumonia plan asp precautions final plan monitor fevers will hold vanco for now will check levels tomorrow
[2018-08-17] MEDS: THIAMINE HCL 100 MG TABLET (FP) PO SCH (22:09)
[2018-08-17] MEDS: DONEPEZIL HCL 10 MG TABLET (FP) PO SCH (22:09)
[2018-08-18] MEDS ORDERED: ACETAMINOPHEN 1000 MG/100 ML VIAL (NON FORMULARY) IVPB ONE (00:01)
[2018-08-18] MEDS: HEPARIN NA (PORCINE) 5,000 UNITS/ML 1ML VIAL SQ SCH ×3 (06:26→21:58)
[2018-08-18] MEDS: INSULIN SLIDING SCALE (NOVOLOG) 1 VIAL SQ SCH ×4 (06:27→22:34)
[2018-08-18] MEDS ORDERED: predniSONE 10 MG TABLET (UD) PO SCH ×2 (07:59→14:57)
[2018-08-18] MEDS: ZINC SULFATE 220 MG CAPSULE (FP) PO SCH (08:00)
[2018-08-18] MEDS ORDERED: PT OWN MED DRAWER 7, Y5N ONE (10:46)
[2018-08-18] MEDS: ASCORBIC ACID 500 MG TABLET (FP) PO SCH (10:51)
[2018-08-18] MEDS: ASPIRIN 81 MG CHEWABLE TABLETS PO SCH (10:51)
[2018-08-18] MEDS: VALPROATE SODIUM 500 MG/5 ML VIAL IVPB SCH (10:51)
--- NOTE | 2018-08-18 12:16 | PN ---
Progress Note, Physician History of Present Illness: fevers continues neuro on case might need a Lp lethargy - Current Medication List Current Medications: Active Medications Acetaminophen (Ofirmev Injection -) 1,000 mg IVPB Q6H PRN PRN Reason: FEVER Ascorbic Acid (Vitamin C -) 500 mg PO DAILY [facility] Last Admin: 08/18/18 10:51 Dose: 500 mg Aspirin (Asa -) 81 mg PO DAILY [facility] Last Admin: 08/18/18 10:51 Dose: 81 mg Collagenase (Santyl -) 1 applic TP DAILY [facility]; Protocol Last Admin: 08/17/18 12:27 Dose: 1 applic Donepezil HCl (Aricept -) 10 mg PO HS [facility] Last Admin: 08/17/18 22:09 Dose: 10 mg Heparin Sodium (Porcine) (Heparin -) 5,000 unit SQ TID [facility] Last Admin: 08/18/18 06:26 Dose: 5,000 unit Insulin Aspart (Novolog Vial Sliding Scale -) 1 vial SQ ACHS [facility]; Protocol Last Admin: 08/18/18 06:27 Dose: Not Given Lorazepam (Ativan Injection -) 1 mg IVPUSH Q6H PRN PRN Reason: seizures Prednisone (Deltasone -) 30 mg PO DAILY [facility] Last Admin: 08/18/18 10:50 Dose: 30 mg Thiamine HCl (Vitamin B1 -) 100 mg PO HS [facility] Last Admin: 08/17/18 22:09 Dose: 100 mg Valproate Sodium (Depacon Injection -) 250 mg IVPB BID [facility] Last Admin: 08/18/18 10:51 Dose: 250 mg Zinc Sulfate (Orazinc -) 220 mg PO DAILY@0800 [facility] Last Admin: 08/18/18 08:00 Dose: 220 mg - Objective Vital Signs: Vital Signs Temperature 98.4 F 08/18/18 10:00 Pulse Rate 107 H 08/18/18 10:00 Respiratory Rate 20 08/18/18 10:00 Blood Pressure 142/85 08/18/18 10:00 O2 Sat by Pulse Oximetry (%) 98 08/17/18 21:00 Constitutional: Yes: No Distress, Calm Cardiovascular: Yes: S1, S2 Respiratory: Yes: Regular, CTA Bilaterally Gastrointestinal: Yes: Normal Bowel Sounds, Soft Musculoskeletal: Yes: WNL Extremities: Yes: WNL Labs: CBC, BMP 08/17/18 09:10 08/17/18 09:10 INR, PTT INR 1.29 (0.83-1.09) H 07/29/18 05:15 Assessment/Plan also now patient is coughing and producing sputum Altered Mental Status r/o Neuroleptic Malignant Syndrome r/o Seizures Seizure Disorder h/o CVA Schizophrenia Alzheimer's Dementia drug reaction mrsa pneumonia plan asp precautions final plan monitor fevers will hold vanco for now will check levels tomorrow
--- NOTE | 2018-08-18 14:53 | PN ---
Physical Exam: SUBJECTIVE: Patient seen and examined at the bedside. OBJECTIVE: neuro follow up appreciated Vital Signs Period Temp Pulse Resp BP Sys/Cortes Pulse Ox Last 24 Hr 98.4 F-102.6 F 96-108 18-20 118-142/67-85 98-98 GENERAL: in no acute distress. eyes open, more awake and alert. HEAD: Normal with no signs of trauma. EYES: PERRL, extraocular movements intact, sclera anicteric, conjunctiva clear. No ptosis. ENT: Ears normal, nares patent, oropharynx clear without exudates, moist mucous membranes - ngt feeds NECK: Trachea midline, full range of motion, supple. LUNGS: Breath sounds equal, clear to auscultation anteriorly HEART: Regular rate and rhythm ABDOMEN: Soft, nontender, nondistended, normoactive bowel sounds EXTREMITIES: no edema. bilateral hips with pressure associated redness, right ear with healed pressure sore, heals reddened. unsteageable on right heel NEUROLOGICAL: awake and more alert, brief eye contract Laboratory Results - last 24 hr 08/17/18 08/17/18 08/18/18 17:32 22:45 05:49 POC Glucometer 139 131 126 Random Vancomycin Vancomycin Pre-Dose 08/18/18 08/18/18 08/18/18 08:00 12:08 12:50 POC Glucometer 129 Random Vancomycin 6.5 L Vancomycin Pre-Dose 7.3 L Active Medications Generic Name Dose Route Start Last Admin Trade Name Freq PRN Reason Stop Dose Admin Acetaminophen 1,000 mg 08/18/18 07:08 Ofirmev Injection - IVPB Q6H PRN FEVER Ascorbic Acid 500 mg 08/01/18 10:00 08/18/18 10:51 Vitamin C - PO 500 mg DAILY [facility] Administration Aspirin 81 mg 08/01/18 10:00 08/18/18 10:51 Asa - PO 81 mg DAILY [facility] Administration Collagenase 1 applic 08/16/18 12:15 08/17/18 12:27 Santyl - TP 1 applic DAILY [facility] Administration Protocol Donepezil HCl 10 mg 08/01/18 22:00 08/17/18 22:09 Aricept - PO 10 mg HS [facility] Administration Heparin Sodium (Porcine) 5,000 unit 08/08/18 14:00 08/18/18 06:26 Heparin - SQ 5,000 unit TID [facility] Administration Insulin Aspart 1 vial 08/13/18 11:00 08/18/18 11:30 Novolog Vial Sliding Scale - SQ Not Given ACHS [facility] Protocol Lorazepam 1 mg 08/13/18 10:54 Ativan Injection - IVPUSH Q6H PRN seizures Prednisone 30 mg 08/18/18 07:59 08/18/18 10:50 Deltasone - PO 30 mg DAILY [facility] Administration Thiamine HCl 100 mg 08/07/18 22:00 08/17/18 22:09 Vitamin B1 - PO 100 mg HS [facility] Administration Valproate Sodium 250 mg 08/13/18 10:15 08/18/18 10:51 Depacon Injection - IVPB 250 mg BID [facility] Administration Zinc Sulfate 220 mg 08/07/18 10:42 08/18/18 08:00 Orazinc - PO 220 mg DAILY@0800 [facility] Administration ASSESSMENT/PLAN: Patient is a 62 year old male with history of dementia, prior alcohol abuse, CVA 's, and hyperlipidemia. He presented to the ED with an altered mental status, poor oral intake of oral foods and fluids. Patient was reportedly on haldol and seroquel and has been more lethargic with increased muscle rigidity from NH. ID: Acute metabolic encephalopathy Neuroleptic malignant syndrome/fevers lethargic and less interactive, febrile overnight. blood and urine cultures negative. Neuro follow up appreciated Fevers, persistent Patient under treatment for mrsa pneumonia but fevers persist. ID following. On vancomycin based on vanco levels. vanco trough completed. will follow up with ID. Mrsa pneumonia Blood cultures negative, +mrsa on sputum, on vancomycin, zosyn discontinued. Neuro: Seizure Disorder h/o CVA Schizophrenia Alzheimer's Dementia On ASA 81mg On Valproate 250mg IV BID, Donepezil 10mg PO hs. neuro to re evaluate GI elevated ast/alt, trending down fen monitor electrolytes ngt feeds with vital 1.2 with uptitrate as tolerated swallow eval ongoing. full code Visit type - Emergency Visit Emergency Visit: Yes ED Registration Date: 07/28/18 Care time: The patient presented to the Emergency Department on the above date and was hospitalized for further evaluation of their emergent condition. - New Patient This patient is new to me today: No - Critical Care Critical Care patient: No - Discharge Referral Referred to [facility] No
[2018-08-18] MEDS: COLLAGENASE CLOSTRIDIUM HIST. 30 GRAMS TUBE TP SCH (14:56)
[2018-08-18] MEDS: VALPROATE SODIUM 250 MG/5 ML UNIT DOSE CUP GT SCH (21:57)
[2018-08-18] MEDS: THIAMINE HCL 100 MG TABLET (FP) PO SCH (21:57)
[2018-08-18] MEDS: DONEPEZIL HCL 10 MG TABLET (FP) GT SCH (21:58)
[2018-08-18] MEDS: ACETAMINOPHEN 1000 MG/100 ML VIAL (NON FORMULARY) IVPB PRN (21:59)
[2018-08-19] MEDS: ACETAMINOPHEN 1000 MG/100 ML VIAL (NON FORMULARY) IVPB PRN ×2 (03:55→10:51)
[2018-08-19] MEDS: HEPARIN NA (PORCINE) 5,000 UNITS/ML 1ML VIAL SQ SCH ×3 (05:27→22:51)
[2018-08-19] MEDS: INSULIN SLIDING SCALE (NOVOLOG) 1 VIAL SQ SCH ×3 (06:09→18:06)
[2018-08-19 08:21] LABS: BASO % 0.6 % (0-2.0); HEMOGLOBIN 12.6 GM/dL (11.7-16.9); LYMPH % 12.6 % (8-40); MCH 31.7 pg (25.7-33.7); MCHC 34.2 g/dl (32.0-35.9); MEAN CELL VOLUME 92.6 fl (80-96); MEAN PLT VOLUME 9.9 fl (7.5-11.1); MONO % 5.1 % (3.8-10.2); NEUT % 81.7 % (42.8-82.8); PLATELET COUNT 189 K/MM3 (134-434); RBC 3.99 M/mm3 (4.00-5.60); RDW 17.1 % (11.9-15.9)
[2018-08-19 08:56] LABS: ALBUMIN 2.9 g/dl (3.4-5.0); ALK PHOS 127 U/L (45-117); ANION GAP 8 MMOL/L (8-16); BILIRUBIN,TOTAL 0.8 mg/dL (0.2-1); BLOOD UREA NITROGEN 25 mg/dL (7-18); CALCIUM 8.3 mg/dL (8.5-10.1); CHLORIDE 114 mmol/L (98-107); CO2 27 mmol/L (21-32); CREATININE 1.2 mg/dL (0.55-1.3); GLUCOSE,RANDOM 119 mg/dL (74-106); MAGNESIUM 2.8 mg/dL (1.8-2.4); POTASSIUM 3.9 mmol/L (3.5-5.1); SGOT/AST 49 U/L (15-37); SGPT/ALT 63 U/L (13-61); SODIUM 149 mmol/L (136-145); TOT PROT 7.1 g/dl (6.4-8.2)
--- NOTE | 2018-08-19 10:05 | PN ---
Physical Exam: SUBJECTIVE: Patient seen and examined at the bedside. OBJECTIVE: for an LP today per neurology. remains lethargic, mostly non engaging. patient was sent for NMS from [place], was in icu. mental status improved, then now gradually worsening mental status multiple head cts and brain mri negative for acute process. continues with fevers 102F despite antibiotics. all cultures negative. all imaging negative. for an LP today Vital Signs Period Temp Pulse Resp BP Sys/Cortes Pulse Ox Last 24 Hr 100 F-102.8 F 87-103 18-20 121-131/72-86 GENERAL: in no acute distress. lethargic, opens eyes intermittently. HEAD: Normal with no signs of trauma. has increased temporal wasting. EYES: PERRL, extraocular movements intact, sclera anicteric, conjunctiva clear. No ptosis. ENT: Ears normal, nares patent, oropharynx clear without exudates, moist mucous membranes - ngt feeds NECK: Trachea midline, full range of motion, supple. LUNGS: congestion noted anteriorly. HEART: Regular rate and rhythm ABDOMEN: Soft, nontender, nondistended, normoactive bowel sounds EXTREMITIES: no edema. bilateral hips with pressure associated redness, right ear with healed pressure sore, heals reddened. unsteageable on right heel NEUROLOGICAL: lethargic, for LP today Laboratory Results - last 24 hr 08/18/18 08/18/18 08/18/18 12:08 12:50 17:38 WBC RBC Hgb Hct MCV MCH MCHC RDW Plt Count MPV Absolute Neuts (auto) Neutrophils % Lymphocytes % Monocytes % Eosinophils % Basophils % Nucleated RBC % Sodium Potassium Chloride Carbon Dioxide Anion Gap BUN Creatinine Creat Clearance w eGFR POC Glucometer 129 195 Random Glucose Calcium Magnesium Total Bilirubin AST ALT Alkaline Phosphatase Total Protein Albumin Random Vancomycin 6.5 L 08/18/18 08/19/18 08/19/18 22:26 05:26 06:15 WBC 14.0 H RBC 3.99 L Hgb 12.6 Hct 37.0 MCV 92.6 MCH 31.7 MCHC 34.2 RDW 17.1 H Plt Count 189 MPV 9.9 Absolute Neuts (auto) 11.4 H Neutrophils % 81.7 Lymphocytes % 12.6 D Monocytes % 5.1 Eosinophils % 0.0 D Basophils % 0.6 Nucleated RBC % 0 Sodium Potassium Chloride Carbon Dioxide Anion Gap BUN Creatinine Creat Clearance w eGFR POC Glucometer 178 136 Random Glucose Calcium Magnesium Total Bilirubin AST ALT Alkaline Phosphatase Total Protein Albumin Random Vancomycin 08/19/18 06:15 WBC RBC Hgb Hct MCV MCH MCHC RDW Plt Count MPV Absolute Neuts (auto) Neutrophils % Lymphocytes % Monocytes % Eosinophils % Basophils % Nucleated RBC % Sodium 149 H Potassium 3.9 Chloride 114 H Carbon Dioxide 27 Anion Gap 8 BUN 25 H Creatinine 1.2 Creat Clearance w eGFR > 60 POC Glucometer Random Glucose 119 H Calcium 8.3 L Magnesium 2.8 H Total Bilirubin 0.8 AST 49 H ALT 63 H Alkaline Phosphatase 127 H Total Protein 7.1 Albumin 2.9 L Random Vancomycin Active Medications Generic Name Dose Route Start Last Admin Trade Name Freq PRN Reason Stop Dose Admin Acetaminophen 1,000 mg 08/18/18 07:08 08/19/18 03:55 Ofirmev Injection - IVPB 1,000 mg Q6H PRN Administration FEVER Ascorbic Acid 500 mg 08/18/18 14:59 Vitamin C - GT DAILY [facility] Aspirin 81 mg 08/01/18 10:00 08/18/18 10:51 Asa - PO 81 mg DAILY ART Administration Collagenase 1 applic 08/16/18 12:15 08/18/18 14:56 Santyl - TP 1 applic DAILY ART Administration Protocol Donepezil HCl 10 mg 08/18/18 14:59 08/18/18 21:58 Aricept - GT 10 mg HS ART Administration Heparin Sodium (Porcine) 5,000 unit 08/08/18 14:00 08/19/18 05:27 Heparin - SQ 5,000 unit TID ART Administration Insulin Aspart 1 vial 08/13/18 11:00 08/19/18 06:09 Novolog Vial Sliding Scale - SQ Not Given ACHS ART Protocol Prednisone 20 mg 08/18/18 14:57 Deltasone - PO DAILY ART Thiamine HCl 100 mg 08/07/18 22:00 08/18/18 21:57 Vitamin B1 - PO 100 mg HS ART Administration Valproate Sodium 250 mg 08/18/18 22:00 08/18/18 21:57 Depakene - GT 250 mg BID ART Administration Zinc Sulfate 220 mg 08/18/18 15:00 Orazinc - GT DAILY@0800 [facility] ASSESSMENT/PLAN: Patient is a 62 year old male with history of dementia, prior alcohol abuse, CVA 's, and hyperlipidemia. He presented to the ED with an altered mental status, poor oral intake of oral foods and fluids. Patient was reportedly on haldol and seroquel and has been more lethargic with increased muscle rigidity from NH. ID: Acute metabolic encephalopathy. Neuroleptic malignant syndrome/fevers mental status initially improved a few days after admission, now with worsening mental status Sleeps most of day, withdraws to painful stimuli. at times opens eyes spontaneously lethargic and less interactive, febrile overnight. blood and urine cultures negative. vascular duplex negative for dvt, chest ct/abd/pelvis negative for acute process and does not explain the fevers. He does have pneumonia and has been treated with vanco and zosyn, but fevers persist despite antibiotics Neuro follow up appreciated Fevers, persistent Patient under treatment for mrsa pneumonia but fevers persist. Has been on Zosyn, Vanco will follow up with ID if Vanco to be resumed. Mrsa pneumonia Blood cultures negative, +mrsa on sputum, on vancomycin, zosyn discontinued. Neuro: Seizure Disorder h/o CVA Schizophrenia Alzheimer's Dementia Shingles history On ASA 81mg On Valproate 250mg IV BID, Donepezil 10mg PO hs. neuro to re evaluate with LP GI elevated ast/alt, resolved fen monitor electrolytes ngt feeds with vital 1.2 with uptitrate as tolerated - hold for now and restart after LP swallow eval ongoing. possible MBS full code. Visit type - Emergency Visit Emergency Visit: Yes ED Registration Date: 07/28/18 Care time: The patient presented to the Emergency Department on the above date and was hospitalized for further evaluation of their emergent condition. - New Patient This patient is new to me today: No - Critical Care Critical Care patient: No - Discharge Referral Referred to [facility] Med P.C.: No
[2018-08-19] MEDS ORDERED: PT OWN MED DRAWER 7, Y5N ONE (10:36)
[2018-08-19] MEDS ORDERED: LIDOCAINE HCL 1%, 10 MG/ML (20ML VIAL) NR ONE (10:45)
[2018-08-19] MEDS: ASPIRIN 81 MG CHEWABLE TABLETS PO SCH (10:50)
[2018-08-19] MEDS: ASCORBIC ACID 500 MG TABLET (FP) GT SCH (10:50)
[2018-08-19] MEDS: VALPROATE SODIUM 250 MG/5 ML UNIT DOSE CUP GT SCH ×2 (10:50→22:51)
[2018-08-19] MEDS: ZINC SULFATE 220 MG CAPSULE (FP) GT SCH (10:51)
--- NOTE | 2018-08-19 11:35 | PN ---
Progress Note (short form) - Note Progress Note: 62 year old male history of Dementia, alcohol abuse, storke, HLD . Patient was in correction and was brought to hospital as he was having mental status detioration. Compa has ct head showed cortical atrophy and found to have high grade fever and suspected to have NMS and dantrolene was given Patient is still spiking fever and has been off antibitic and ID thinks it could be ? central in origin. Patient usually opens eye and follow command when his sister is around . He has ng tube in place and not able to eat by hiself. Repeat eeg showed there is multiple artifacts. NEUROLOGICAL EXAMINATION VSS and febrile He laying in bed and no acute distress, not following command. withdraws to pain There is rigidity in upper and lower extrmeity. pupils reactive mild terminal neck stiffness( part of generalized rigidity) mri of brain is normal, two ct head were unremarkable eeg reviewed : repeat eeg did not show any epileptiform discharges and there is lot of muscle artifacts were seen. Assessment/Plan 62 year old male history of alcohol abuse, dementia with behavior disturbance on two antipsychotic medicaitons ( haldol and seroquel) in [place]. Initial diagnosis was Neuroleptic malignant syndrome. He do have history of seizure and there has not been any twitcing or focal seizure activity since admission , he is on depakote 250 mg bid . Most likely patient has delirium , given his diagnosis of dementia. PLan Spoke to [place] and would plan for spinal tap , as he keep spiking fever, he has been treated with abx and ID thinking about central origin of fever I would do spinal tap today. continue supportive care Thanking you so much Toni Heart MD
--- NOTE | 2018-08-19 11:37 | PN ---
Progress Note, ONCOLOGY ACCOUNT SPECIALIST - Note Progress Note: pt eyes open spontaneously, NG tube in place and patent feeding tolerated well. Selected Entries 08/15/18 08/15/18 08/15/18 02:00 06:00 10:56 Supper Temperature 100.1 F H 99.9 F H 99.5 F 08/15/18 08/15/18 08/15/18 11:06 14:32 15:44 Supper Temperature 101.9 F H 99.7 F H 101.3 F H 08/15/18 08/15/18 08/16/18 18:32 22:00 02:00 Supper Temperature 99.8 F H 98.3 F 100.8 F H 08/16/18 08/16/18 08/16/18 06:00 09:29 15:47 Supper Temperature 100.6 F H 99.9 F H 101.5 F H 08/16/18 08/16/18 08/17/18 18:30 21:06 02:00 Supper Temperature 99.6 F 101.0 F H 99.0 F 08/17/18 08/17/18 08/17/18 06:00 10:00 15:27 Supper Temperature 99.5 F 101.9 F H 100.9 F H 08/17/18 08/18/18 08/18/18 19:46 02:05 05:32 Supper Temperature 101.2 F H 100.1 F H 100.8 F H 08/18/18 08/18/18 08/18/18 06:06 10:00 15:06 Supper Temperature 102.6 F H 98.4 F 100.9 F H 08/18/18 08/18/18 08/19/18 18:40 22:00 02:19 Supper NPO Temperature 101.0 F H 102.5 F H 102.8 F H 08/19/18 08/19/18 08/19/18 02:29 04:41 10:30 Supper Temperature 101.3 F H 100 F H 101 F H Laboratory Tests 08/15/18 08/16/18 08/17/18 09:25 09:50 09:10 WBC 12.0 H 14.6 H 12.7 H 08/19/18 06:15 WBC 14.0 H NPO/NGT Continued w/u in progress re source of infection. Defer PO trials until fevers are down and WBC improved. Possibly MBS once clinically improved.
--- NOTE | 2018-08-19 14:39 | PN ---
Progress Note, Physician History of Present Illness: fevers plan for lp today vanco level noted all cx are negative - Current Medication List Current Medications: Active Medications Acetaminophen (Ofirmev Injection -) 1,000 mg IVPB Q6H PRN PRN Reason: FEVER Last Admin: 08/19/18 10:51 Dose: 1,000 mg Ascorbic Acid (Vitamin C -) 500 mg GT DAILY [facility] Last Admin: 08/19/18 10:50 Dose: 500 mg Aspirin (Asa -) 81 mg PO DAILY [facility] Last Admin: 08/19/18 10:50 Dose: 81 mg Collagenase (Santyl -) 1 applic TP DAILY [facility]; Protocol Last Admin: 08/18/18 14:56 Dose: 1 applic Donepezil HCl (Aricept -) 10 mg GT HS [facility] Last Admin: 08/18/18 21:58 Dose: 10 mg Heparin Sodium (Porcine) (Heparin -) 5,000 unit SQ TID [facility] Last Admin: 08/19/18 05:27 Dose: 5,000 unit Insulin Aspart (Novolog Vial Sliding Scale -) 1 vial SQ ACHS [facility]; Protocol Last Admin: 08/19/18 11:09 Dose: Not Given Thiamine HCl (Vitamin B1 -) 100 mg PO HS [facility] Last Admin: 08/18/18 21:57 Dose: 100 mg Valproate Sodium (Depakene -) 250 mg GT BID [facility] Last Admin: 08/19/18 10:50 Dose: 250 mg Zinc Sulfate (Orazinc -) 220 mg GT DAILY@0800 [facility] Last Admin: 08/19/18 10:51 Dose: 220 mg - Objective Vital Signs: Vital Signs Temperature 101 F H 08/19/18 10:30 Pulse Rate 114 H 08/19/18 10:30 Respiratory Rate 20 08/19/18 10:30 Blood Pressure 128/77 08/19/18 10:30 O2 Sat by Pulse Oximetry (%) 94 L 08/19/18 09:00 Constitutional: Yes: No Distress, Calm Cardiovascular: Yes: S1, S2 Respiratory: Yes: Regular, On Nasal O2 Gastrointestinal: Yes: Normal Bowel Sounds, Soft, Other (ng tube in place) Extremities: Yes: WNL Neurological: Yes: Other Psychiatric: Yes: Other Labs: CBC, BMP 08/19/18 06:15 08/19/18 06:15 INR, PTT INR 1.29 (0.83-1.09) H 07/29/18 05:15 Assessment/Plan also now patient is coughing and producing sputum Altered Mental Status r/o Neuroleptic Malignant Syndrome r/o Seizures Seizure Disorder h/o CVA Schizophrenia Alzheimer's Dementia drug reaction mrsa pneumonia plan will start vanco again nutrition LP rest as per the team
[2018-08-19 17:45] LABS: CSF APPEARANCE CLEAR; CSF COLOR COLORLESS
[2018-08-19 17:46] LABS: CSF WBC 1
[2018-08-19] MEDS: VANCOMYCIN 1,250 MG in DEXTROSE 5%-WATER - 250 ML IVPB SCH (18:03)
[2018-08-19] MEDS: COLLAGENASE CLOSTRIDIUM HIST. 30 GRAMS TUBE TP SCH (18:03)
[2018-08-19 18:28] LABS: BF GLUCOSE (CSF ONLY) 71 mg/dL (40-70)
[2018-08-19] MEDS: DONEPEZIL HCL 10 MG TABLET (FP) GT SCH (22:51)
[2018-08-19] MEDS: THIAMINE HCL 100 MG TABLET (FP) PO SCH (22:51)
[2018-08-20] MEDS: INSULIN SLIDING SCALE (NOVOLOG) 1 VIAL SQ SCH ×4 (00:07→23:42)
[2018-08-20] MEDS: HEPARIN NA (PORCINE) 5,000 UNITS/ML 1ML VIAL SQ SCH ×3 (06:00→23:41)
[2018-08-20] MEDS: ACETAMINOPHEN 650 MG SUPP.RECT PR PRN ×3 (06:05→19:25)
[2018-08-20] MEDS ORDERED: PT OWN MED DRAWER 7, Y5N ONE ×2 (10:44→16:20)
[2018-08-20] MEDS: ASPIRIN 81 MG CHEWABLE TABLETS PO SCH (10:56)
[2018-08-20] MEDS: VALPROATE SODIUM 250 MG/5 ML UNIT DOSE CUP GT SCH ×2 (10:56→23:41)
[2018-08-20] MEDS: ZINC SULFATE 220 MG CAPSULE (FP) GT SCH (10:56)
[2018-08-20] MEDS: ASCORBIC ACID 500 MG TABLET (FP) GT SCH (10:56)
[2018-08-20 11:01] LABS: BASO % 0.7 % (0-2.0); EOS % 0.1 % (0-4.5); HEMATOCRIT 39.3 % (35.4-49); HEMOGLOBIN 12.9 GM/dL (11.7-16.9); LYMPH % 12.7 % (8-40); MCHC 32.9 g/dl (32.0-35.9); MEAN CELL VOLUME 94.3 fl (80-96); MEAN PLT VOLUME 9.4 fl (7.5-11.1); NEUT % 80.5 % (42.8-82.8); PLATELET COUNT 171 K/MM3 (134-434); RBC 4.17 M/mm3 (4.00-5.60); RDW 17.6 % (11.9-15.9); WHITE BLOOD COUNT 12.4 K/mm3 (4.0-10.0)
[2018-08-20 11:40] LABS: ALK PHOS 109 U/L (45-117); ANION GAP 9 MMOL/L (8-16); BILIRUBIN,TOTAL 0.8 mg/dL (0.2-1); BLOOD UREA NITROGEN 25 mg/dL (7-18); CALCIUM 8.6 mg/dL (8.5-10.1); CHLORIDE 116 mmol/L (98-107); CO2 27 mmol/L (21-32); CREATININE 1.1 mg/dL (0.55-1.3); GLUCOSE,RANDOM 126 mg/dL (74-106); MAGNESIUM 2.8 mg/dL (1.8-2.4); POTASSIUM 3.7 mmol/L (3.5-5.1); SGOT/AST 42 U/L (15-37); SGPT/ALT 56 U/L (13-61); SODIUM 152 mmol/L (136-145); TOT PROT 6.8 g/dl (6.4-8.2)
[2018-08-20] MEDS: COLLAGENASE CLOSTRIDIUM HIST. 30 GRAMS TUBE TP SCH (11:41)
--- NOTE | 2018-08-20 13:55 | PN ---
Progress Note, Physician History of Present Illness: fevers continue patient has been worked up couple of times all his results have been negative so far neuro on the case - Current Medication List Current Medications: Active Medications Acetaminophen (Tylenol Suppository -) 650 mg [place] Q6H PRN PRN Reason: FEVER Last Admin: 08/20/18 12:14 Dose: 650 mg Ascorbic Acid (Vitamin C -) 500 mg GT DAILY [facility] Last Admin: 08/20/18 10:56 Dose: 500 mg Aspirin (Asa -) 81 mg PO DAILY [facility] Last Admin: 08/20/18 10:56 Dose: 81 mg Collagenase (Santyl -) 1 applic TP DAILY [facility]; Protocol Last Admin: 08/20/18 11:41 Dose: 1 applic Donepezil HCl (Aricept -) 10 mg GT HS [facility] Last Admin: 08/19/18 22:51 Dose: 10 mg Heparin Sodium (Porcine) (Heparin -) 5,000 unit SQ TID [facility] Last Admin: 08/20/18 06:00 Dose: 5,000 unit Vancomycin HCl 1,250 mg/ (Dextrose) 250 mls @ 150 mls/hr IVPB DAILY@1600 [facility]; Protocol Last Admin: 08/19/18 18:03 Dose: 150 mls/hr Insulin Aspart (Novolog Vial Sliding Scale -) 1 vial SQ ACHS [facility]; Protocol Last Admin: 08/20/18 11:43 Dose: Not Given Thiamine HCl (Vitamin B1 -) 100 mg PO [facility] Last Admin: 08/19/18 22:51 Dose: 100 mg Valproate Sodium (Depakene -) 250 mg GT BID [facility] Last Admin: 08/20/18 10:56 Dose: 250 mg Zinc Sulfate (Orazinc -) 220 mg GT DAILY@0800 [facility] Last Admin: 08/20/18 10:56 Dose: 220 mg - Objective Vital Signs: Vital Signs Temperature 100.1 F H 08/20/18 06:00 Pulse Rate 102 H 08/20/18 06:00 Respiratory Rate 20 08/20/18 06:00 Blood Pressure 140/83 08/20/18 06:00 O2 Sat by Pulse Oximetry (%) 94 L 08/19/18 21:00 Constitutional: Yes: Other Cardiovascular: Yes: S1, S2 Gastrointestinal: Yes: Normal Bowel Sounds, Soft, Other Musculoskeletal: Yes: WNL Extremities: Yes: Other (contracted) Neurological: Yes: Other Psychiatric: Yes: Other Labs: CBC, BMP 08/20/18 10:16 08/20/18 10:16 INR, PTT INR 1.29 (0.83-1.09) H 07/29/18 05:15 Assessment/Plan also now patient is coughing and producing sputum Altered Mental Status r/o Neuroleptic Malignant Syndrome r/o Seizures Seizure Disorder h/o CVA Schizophrenia Alzheimer's Dementia drug reaction mrsa pneumonia plan continue abx might switch him to oral monitor fevers nutrition rest as per the team
[2018-08-20] MEDS: VANCOMYCIN 1,250 MG in DEXTROSE 5%-WATER - 250 ML IVPB SCH (16:26)
--- NOTE | 2018-08-20 17:15 | PN ---
Physical Exam: SUBJECTIVE: Patient seen and examined. Asleep, appears comfortable Fever this afternoon OBJECTIVE: Vital Signs Period Temp Pulse Resp BP Sys/Cortes Pulse Ox Last 24 Hr 99.8 F-102.2 F 98-104 20-22 123-144/76-86 94-97 PE Neuro: min responsive, NAD HEENT: NGT Pulm: diminished clear CV: s1 s2 rrr Abd: s nt nd + bs Ext: contracted UE Laboratory Results - last 24 hr 08/19/18 08/19/18 08/19/18 17:00 17:00 18:05 WBC RBC Hgb Hct MCV MCH MCHC RDW Plt Count MPV Absolute Neuts (auto) Neutrophils % Lymphocytes % Monocytes % Eosinophils % Basophils % Nucleated RBC % Sodium Potassium Chloride Carbon Dioxide Anion Gap BUN Creatinine Creat Clearance w eGFR POC Glucometer 148 Random Glucose Calcium Magnesium Total Bilirubin AST ALT Alkaline Phosphatase Total Protein Albumin CSF Appearance Clear CSF Color Colorless CSF WBC 1 CSF RBC 65 CSF Neutrophils No Result Required. CSF Lymphocytes No Result Required. CSF Eosinophils No Result Required. CSF Basophils No Result Required. CSF Macrophages No Result Required. CSF Plasma Cells No Result Required. CSF Diff Comment No Result Required. CSF Comment Tube#4 CSF Glucose 71 H Cancelled CSF Total Protein 49 H Cancelled 08/20/18 08/20/18 08/20/18 00:02 06:11 10:16 WBC 12.4 H RBC 4.17 Hgb 12.9 Hct 39.3 MCV 94.3 MCH 31.0 MCHC 32.9 RDW 17.6 H Plt Count 171 MPV 9.4 Absolute Neuts (auto) 10.0 H Neutrophils % 80.5 Lymphocytes % 12.7 Monocytes % 6.0 Eosinophils % 0.1 D Basophils % 0.7 Nucleated RBC % 0 Sodium Potassium Chloride Carbon Dioxide Anion Gap BUN Creatinine Creat Clearance w eGFR POC Glucometer 110 118 Random Glucose Calcium Magnesium Total Bilirubin AST ALT Alkaline Phosphatase Total Protein Albumin CSF Appearance CSF Color CSF WBC CSF RBC CSF Neutrophils CSF Lymphocytes CSF Eosinophils CSF Basophils CSF Macrophages CSF Plasma Cells CSF Diff Comment CSF Comment CSF Glucose CSF Total Protein 08/20/18 08/20/18 08/20/18 10:16 11:33 16:35 WBC RBC Hgb Hct MCV MCH MCHC RDW Plt Count MPV Absolute Neuts (auto) Neutrophils % Lymphocytes % Monocytes % Eosinophils % Basophils % Nucleated RBC % Sodium 152 H Potassium 3.7 Chloride 116 H Carbon Dioxide 27 Anion Gap 9 BUN 25 H Creatinine 1.1 Creat Clearance w eGFR > 60 POC Glucometer 149 151 Random Glucose 126 H Calcium 8.6 Magnesium 2.8 H Total Bilirubin 0.8 AST 42 H ALT 56 Alkaline Phosphatase 109 Total Protein 6.8 Albumin 3.0 L CSF Appearance CSF Color CSF WBC CSF RBC CSF Neutrophils CSF Lymphocytes CSF Eosinophils CSF Basophils CSF Macrophages CSF Plasma Cells CSF Diff Comment CSF Comment CSF Glucose CSF Total Protein Active Medications Generic Name Dose Route Start Last Admin Trade Name Freq PRN Reason Stop Dose Admin Acetaminophen 650 mg 08/19/18 21:45 08/20/18 12:14 Tylenol Suppository - RI 650 mg Q6H PRN Administration FEVER Ascorbic Acid 500 mg 08/18/18 14:59 08/20/18 10:56 Vitamin C - GT 500 mg DAILY [facility] Administration Aspirin 81 mg 08/01/18 10:00 08/20/18 10:56 Asa - PO 81 mg DAILY [facility] Administration Collagenase 1 applic 08/16/18 12:15 08/20/18 11:41 Santyl - TP 1 applic DAILY [facility] Administration Protocol Donepezil HCl 10 mg 08/18/18 14:59 08/19/18 22:51 Aricept - GT 10 mg HS ART Administration Heparin Sodium (Porcine) 5,000 unit 08/08/18 14:00 08/20/18 16:27 Heparin - SQ 5,000 unit TID [facility] Administration Vancomycin HCl 1,250 mg/ 250 mls @ 150 mls/hr 08/19/18 16:00 08/20/18 16:26 Dextrose IVPB 150 mls/hr DAILY@1600 [facility] Administration Protocol Insulin Aspart 1 vial 08/13/18 11:00 08/20/18 11:43 Novolog Vial Sliding Scale - SQ Not Given ACHS ART Protocol Thiamine HCl 100 mg 08/07/18 22:00 08/19/18 22:51 Vitamin B1 - PO 100 mg HS ART Administration Valproate Sodium 250 mg 08/18/18 22:00 08/20/18 10:56 Depakene - GT 250 mg BID [facility] Administration Zinc Sulfate 220 mg 08/18/18 15:00 08/20/18 10:56 Orazinc - GT 220 mg DAILY@0800 [facility] Administration Assessment: 62 year old male with history of dementia, prior alcohol abuse, CVA' s, and hyperlipidemia. He presented to the ED with an altered mental status, poor oral intake of oral foods and fluids. Patient was reportedly on haldol and seroquel and has been more lethargic with increased muscle rigidity from NH. Plan: 1. Acute metabolic encephalopathy/fevers - Etiology unclear ?Neuroleptic malignant syndrom - LP results pending - [facility] imaging negative - Neuro following 2. Fevers, persistent - Vanco restarted yesterday 3. MRSA pneumonia - Blood cultures negative - +mrsa on sputum - Vanco as above 4. Hypernatremia with fever - Water deficit 4L - Start d5 1.2 NS, increase free water flushes - Check bmp 5. Nutrition - NGT feeds with vital 1.2 with uptitrate as tolerated - Change free water flushes to 50 cc for hypernatremia, re evaluate tomorrow, decrease to 30 if sodium wnl 6. Seizure Disorder - Valproate 250mg IV BID, Donepezil 10mg PO hs. 7. h/o CVA - ASA 8. Schizophrenia/ Alzheimer's Dementia - Meds as listed Visit type - Emergency Visit Emergency Visit: Yes ED Registration Date: 07/28/18 Care time: The patient presented to the Emergency Department on the above date and was hospitalized for further evaluation of their emergent condition. - New Patient This patient is new to me today: Yes Date on this admission: 08/22/18 - Critical Care Critical Care patient: No
[2018-08-20] MEDS ORDERED: DEXTROSE 5%-0.45% SALINE 1,000 ML IV SCH (17:30)
[2018-08-20] MEDS: IBUPROFEN 800 MG/8 ML IJ IVPB PRN (21:35)
[2018-08-20] MEDS: THIAMINE HCL 100 MG TABLET (FP) PO SCH (23:41)
[2018-08-20] MEDS: DONEPEZIL HCL 10 MG TABLET (FP) GT SCH (23:42)
[2018-08-21] MEDS: IBUPROFEN 800 MG/8 ML IJ IVPB PRN ×2 (07:08→15:32)
[2018-08-21] MEDS: HEPARIN NA (PORCINE) 5,000 UNITS/ML 1ML VIAL SQ SCH ×3 (07:09→21:48)
[2018-08-21] MEDS: INSULIN SLIDING SCALE (NOVOLOG) 1 VIAL SQ SCH ×4 (07:09→21:48)
[2018-08-21 08:16] LABS: BASO % 0.3 % (0-2.0); EOS % 0.1 % (0-4.5); HEMATOCRIT 33.4 % (35.4-49); HEMOGLOBIN 10.9 GM/dL (11.7-16.9); LYMPH % 13.4 % (8-40); MCH 30.9 pg (25.7-33.7); MCHC 32.8 g/dl (32.0-35.9); MEAN CELL VOLUME 94.3 fl (80-96); MEAN PLT VOLUME 10.6 fl (7.5-11.1); MONO % 4.8 % (3.8-10.2); NEUT % 81.4 % (42.8-82.8); PLATELET COUNT 139 K/MM3 (134-434); RBC 3.54 M/mm3 (4.00-5.60); RDW 17.9 % (11.9-15.9); WHITE BLOOD COUNT 11.6 K/mm3 (4.0-10.0)
--- NOTE | 2018-08-21 09:50 | PN ---
Progress Note (short form) - Note Progress Note: SUBJECTIVE: Patient seen and examined. Opens eyes, non-verbal Tmax 102.2 Current Medications Generic Name Dose Route Start Last Admin Trade Name Freq PRN Reason Stop Dose Admin Acetaminophen 650 mg 08/19/18 21:45 08/20/18 19:25 Tylenol Suppository - IN 650 mg Q6H PRN Administration FEVER Ascorbic Acid 500 mg 08/18/18 14:59 08/20/18 10:56 Vitamin C - GT 500 mg DAILY [facility] Administration Aspirin 81 mg 08/01/18 10:00 08/20/18 10:56 Asa - PO 81 mg DAILY [facility] Administration Collagenase 1 applic 08/16/18 12:15 08/20/18 11:41 Santyl - TP 1 applic DAILY [facility] Administration Protocol Donepezil HCl 10 mg 08/18/18 14:59 08/20/18 23:42 Aricept - GT 10 mg HS ART Administration Heparin Sodium (Porcine) 5,000 unit 08/08/18 14:00 08/21/18 07:09 Heparin - SQ 5,000 unit TID [facility] Administration Vancomycin HCl 1,250 mg/ 250 mls @ 150 mls/hr 08/19/18 16:00 08/20/18 16:26 Dextrose IVPB 150 mls/hr DAILY@1600 [facility] Administration Protocol Ibuprofen 400 mg 08/20/18 17:25 08/21/18 07:08 Caldolor Injection - IVPB 08/22/18 17:24 400 mg Q8H PRN Administration PAIN LEVEL 1 - 3 Insulin Aspart 1 vial 08/13/18 11:00 08/21/18 07:09 Novolog Vial Sliding Scale - SQ Not Given ACHS ART Protocol Thiamine HCl 100 mg 08/07/18 22:00 08/20/18 23:41 Vitamin B1 - PO 100 mg HS ART Administration Valproate Sodium 250 mg 08/18/18 22:00 08/20/18 23:41 Depakene - GT 250 mg BID ART Administration Zinc Sulfate 220 mg 08/18/18 15:00 08/20/18 10:56 Orazinc - GT 220 mg DAILY@0800 [facility] Administration OBJECTIVE: Vital Signs Period Temp Pulse Resp BP Sys/Cortes Pulse Ox Last 24 Hr 100.3 F-102.2 F 74-114 20-22 123-147/68-112 PE Neuro: min responsive, NAD HEENT: NGT Pulm: diminished clear CV: s1 s2 rrr Abd: s nt nd + bs Ext: contracted upper and lower extremities CBCD WBC 11.6 K/mm3 (4.0-10.0) H 08/21/18 06:30 RBC 3.54 M/mm3 (4.00-5.60) L 08/21/18 06:30 Hgb 10.9 GM/dL (11.7-16.9) L 08/21/18 06:30 Hct 33.4 % (35.4-49) L D 08/21/18 06:30 MCV 94.3 fl (80-96) 08/21/18 06:30 MCHC 32.8 g/dl (32.0-35.9) 08/21/18 06:30 RDW 17.9 % (11.9-15.9) H 08/21/18 06:30 Plt Count 139 K/MM3 (134-434) 08/21/18 06:30 MPV 10.6 fl (7.5-11.1) D 08/21/18 06:30 CMP Sodium 152 mmol/L (136-145) H 08/20/18 10:16 Potassium 3.7 mmol/L (3.5-5.1) 08/20/18 10:16 Chloride 116 mmol/L (98-107) H 08/20/18 10:16 Carbon Dioxide 27 mmol/L (21-32) 08/20/18 10:16 Anion Gap 9 MMOL/L (8-16) 08/20/18 10:16 BUN 25 mg/dL (7-18) H 08/20/18 10:16 Creatinine 1.1 mg/dL (0.55-1.3) 08/20/18 10:16 Creat Clearance w eGFR > 60 (>60) 08/20/18 10:16 Random Glucose 126 mg/dL (74-106) H 08/20/18 10:16 Calcium 8.6 mg/dL (8.5-10.1) 08/20/18 10:16 Total Bilirubin 0.8 mg/dL (0.2-1) 08/20/18 10:16 AST 42 U/L (15-37) H 08/20/18 10:16 ALT 56 U/L (13-61) 08/20/18 10:16 Alkaline Phosphatase 109 U/L (45-117) 08/20/18 10:16 Total Protein 6.8 g/dl (6.4-8.2) 08/20/18 10:16 Albumin 3.0 g/dl (3.4-5.0) L 08/20/18 10:16 CARDIAC ENZYMES Creatine Kinase 76 IU/L (26-308) 08/01/18 06:30 Troponin I 0.05 ng/ml (0.00-0.05) 08/13/18 20:00 Assessment: This is a 62 year old male with PMHx of dementia, prior alcohol abuse, CVA's, and hyperlipidemia. He presented to the ED with an altered mental status, poor oral intake of oral foods and fluids. Patient was reportedly on haldol and seroquel and has been more lethargic with increased muscle rigidity from NH. Plan: 1. Acute metabolic encephalopathy/fevers - Etiology unclear ?Neuroleptic malignant syndrom - LP results pending - [facility] imaging negative - Neuro following 2. Fevers, persistent - Vanco restarted yesterday 3. MRSA pneumonia - Blood cultures negative - +mrsa on sputum - Vanco as above 4. Hypernatremia - Start d5 1.2 ns @75cc/hr x1L yesterday, awaiting labs from this morning 5. Nutrition - NGT feeds with vital 1.2 with uptitrate as tolerated - Change free water flushes to 50 cc for hypernatremia, re evaluate tomorrow, decrease to 30 if sodium wnl 6. Seizure Disorder - Valproate 250mg IV BID, Donepezil 10mg PO hs. 7. h/o CVA - ASA 8. Schizophrenia/ Alzheimer's Dementia - Meds as listed Visit type - Emergency Visit Emergency Visit: Yes ED Registration Date: 07/28/18 Care time: The patient presented to the Emergency Department on the above date and was hospitalized for further evaluation of their emergent condition. - New Patient This patient is new to me today: Yes Date on this admission: 08/21/18 - Critical Care Critical Care patient: No
[2018-08-21 09:55] LABS: ANION GAP 5 MMOL/L (8-16); BLOOD UREA NITROGEN 22 mg/dL (7-18); CHLORIDE 119 mmol/L (98-107); CO2 30 mmol/L (21-32); CREATININE 0.9 mg/dL (0.55-1.3); GLUCOSE,RANDOM 146 mg/dL (74-106); POTASSIUM 3.7 mmol/L (3.5-5.1); SODIUM 154 mmol/L (136-145)
[2018-08-21] MEDS: ACETAMINOPHEN 650 MG SUPP.RECT PR PRN (10:50)
[2018-08-21] MEDS: ZINC SULFATE 220 MG CAPSULE (FP) GT SCH (11:33)
[2018-08-21] MEDS: ASCORBIC ACID 500 MG TABLET (FP) GT SCH (11:34)
[2018-08-21] MEDS: VALPROATE SODIUM 250 MG/5 ML UNIT DOSE CUP GT SCH ×2 (11:34→21:48)
[2018-08-21] MEDS: ASPIRIN 81 MG CHEWABLE TABLETS PO SCH (11:34)
--- NOTE | 2018-08-21 12:36 | CONSULT ---
Consult - text type - Consultation Consultation Note: Renal consult for hypernatremia This is a 62 year old gentleman with hx of CVA, Dementia, Hx of ETOH abuse, HLD who presented with AMS, Fevers and poor oral intake with encephlopathy/MRSA PNA/Persistent fevers and hypernatremia. Pt seen at the bedside. No in distress but not awake. Unable to obtain further history. on NGT feeds. Was on 1/2 NS. No loose BMs. Fevers persistent. PMHx: as above Allergies: NKDA Family Hx: NC social Hx: No T/A/D ROS: unable to obtain because of mental status Home Medications Medication Instructions Recorded Ascorbic Acid [C-500] 500 mg PO DAILY 07/28/18 Aspirin [ASA -] 81 mg PO DAILY 07/28/18 Atorvastatin Calcium [Lipitor] 10 mg PO HS 07/28/18 Divalproex Sodium 250 mg PO BID 07/28/18 Donepezil HCl 10 mg PO DAILY 07/28/18 Haloperidol 2.5 mg PO BID 07/28/18 Haloperidol Decanoate [Haloperidol 100 mg IM MONTHLY 07/28/18 Decanoate 100] Quetiapine Fumarate [Quetiapine 300 mg PO HS 07/28/18 Fumarate ER] Zinc Sulfate 220 mg PO DAILY 07/28/18 Vital Signs Temperature 102.3 F H 08/21/18 10:00 Pulse Rate 95 H 08/21/18 06:00 Respiratory Rate 20 08/21/18 06:00 Blood Pressure 130/68 08/21/18 06:00 O2 Sat by Pulse Oximetry (%) 97 08/20/18 09:00 Intake & Output 08/18/18 08/19/18 08/20/18 08/21/18 23:59 23:59 23:59 23:59 Intake Total 1640 1380 1800 Balance 1640 1380 1800 NAD, Febrile not alert NGT in place Neck supple RRR CTA soft NT/ND Contracted no LE edema, clubbing or cyanosis CBC, BMP 08/21/18 06:30 08/21/18 09:05 Current Medications Acetaminophen (Tylenol Suppository -) 650 mg ID Q6H PRN PRN Reason: FEVER Last Admin: 08/21/18 10:50 Dose: 650 mg Ascorbic Acid (Vitamin C -) 500 mg GT DAILY [facility] Last Admin: 08/21/18 11:34 Dose: 500 mg Aspirin (Asa -) 81 mg PO DAILY [facility] Last Admin: 08/21/18 11:34 Dose: 81 mg Collagenase (Santyl -) 1 applic TP DAILY [facility]; Protocol Last Admin: 08/20/18 11:41 Dose: 1 applic Donepezil HCl (Aricept -) 10 mg GT HS [facility] Last Admin: 08/20/18 23:42 Dose: 10 mg Heparin Sodium (Porcine) (Heparin -) 5,000 unit SQ TID [facility] Last Admin: 08/21/18 07:09 Dose: 5,000 unit Vancomycin HCl 1,250 mg/ (Dextrose) 250 mls @ 150 mls/hr IVPB DAILY@1600 [facility]; Protocol Last Admin: 08/20/18 16:26 Dose: 150 mls/hr Ibuprofen (Caldolor Injection -) 400 mg IVPB Q8H PRN PRN Reason: PAIN LEVEL 1 - 3 Stop: 08/22/18 17:24 Last Admin: 08/21/18 07:08 Dose: 400 mg Insulin Aspart (Novolog Vial Sliding Scale -) 1 vial SQ ACHS [facility]; Protocol Last Admin: 08/21/18 07:09 Dose: Not Given Thiamine HCl (Vitamin B1 -) 100 mg PO [facility] Last Admin: 08/20/18 23:41 Dose: 100 mg Valproate Sodium (Depakene -) 250 mg GT BID [facility] Last Admin: 08/21/18 11:34 Dose: 250 mg Zinc Sulfate (Orazinc -) 220 mg GT DAILY@0800 [facility] Last Admin: 08/21/18 11:33 Dose: 220 mg 62 year old gentleman with hx of CVA, Dementia, Hx of ETOH abuse, HLD who presented with AMS, Fevers and poor oral intake with encephlopathy/MRSA PNA/ Persistent fevers and hypernatremia. #Hypernatremia (free water deficit ~4L) in setting of persistent fevers #AMS/Encephlopathy #Fevers #MRSA PNA #Dementia with hx of CVA Change IVF to D5W at 130cc per hour Trend serum Na Q12h goal to correct Na 6-8 in 24 hours continue tube feeds with free water as ordered continue abx as per ID Trend Vanco levels Continue supportive care Thank you Gregorio Aldrich DO
[2018-08-21] MEDS: DEXTROSE 5%-WATER - 1,000 ML IV SCH ×2 (12:56→21:49)
--- NOTE | 2018-08-21 14:13 | PN ---
Progress Note, Physician History of Present Illness: still spiking fever - Current Medication List Current Medications: Active Medications Acetaminophen (Tylenol Suppository -) 650 mg [place] Q6H PRN PRN Reason: FEVER Last Admin: 08/21/18 10:50 Dose: 650 mg Ascorbic Acid (Vitamin C -) 500 mg GT DAILY [facility] Last Admin: 08/21/18 11:34 Dose: 500 mg Aspirin (Asa -) 81 mg PO DAILY [facility] Last Admin: 08/21/18 11:34 Dose: 81 mg Collagenase (Santyl -) 1 applic TP DAILY [facility]; Protocol Last Admin: 08/20/18 11:41 Dose: 1 applic Donepezil HCl (Aricept -) 10 mg GT HS [facility] Last Admin: 08/20/18 23:42 Dose: 10 mg Heparin Sodium (Porcine) (Heparin -) 5,000 unit SQ TID [facility] Last Admin: 08/21/18 07:09 Dose: 5,000 unit Dextrose (D5w -) 1,000 mls @ 130 mls/hr IV Q8H [facility] Last Admin: 08/21/18 12:56 Dose: 130 mls/hr Ibuprofen (Caldolor Injection -) 400 mg IVPB Q8H PRN PRN Reason: PAIN LEVEL 1 - 3 Stop: 08/22/18 17:24 Last Admin: 08/21/18 07:08 Dose: 400 mg Insulin Aspart (Novolog Vial Sliding Scale -) 1 vial SQ ACHS [facility]; Protocol Last Admin: 08/21/18 13:04 Dose: Not Given Thiamine HCl (Vitamin B1 -) 100 mg PO HS [facility] Last Admin: 08/20/18 23:41 Dose: 100 mg Valproate Sodium (Depakene -) 250 mg GT BID [facility] Last Admin: 08/21/18 11:34 Dose: 250 mg Zinc Sulfate (Orazinc -) 220 mg GT DAILY@0800 [facility] Last Admin: 08/21/18 11:33 Dose: 220 mg - Objective Vital Signs: Vital Signs Temperature 102.3 F H 08/21/18 10:00 Pulse Rate 95 H 08/21/18 06:00 Respiratory Rate 20 08/21/18 06:00 Blood Pressure 130/68 08/21/18 06:00 O2 Sat by Pulse Oximetry (%) 97 08/20/18 09:00 Constitutional: Yes: Other Cardiovascular: Yes: S1, S2 Respiratory: Yes: Poor Air Entry, Other Gastrointestinal: Yes: Soft, Other (ng tube in place) Musculoskeletal: Yes: WNL Extremities: Yes: WNL Neurological: Yes: Alert, Other Labs: CBC, BMP 08/21/18 06:30 08/21/18 09:05 INR, PTT INR 1.29 (0.83-1.09) H 07/29/18 05:15 Assessment/Plan also now patient is coughing and producing sputum Altered Mental Status r/o Neuroleptic Malignant Syndrome r/o Seizures Seizure Disorder h/o CVA Schizophrenia Alzheimer's Dementia drug reaction mrsa pneumonia plan will stop vanco soto tart on oral doxy rest as per the team nutrition neuro on case
[2018-08-21] MEDS: COLLAGENASE CLOSTRIDIUM HIST. 30 GRAMS TUBE TP SCH (15:33)
[2018-08-21] MEDS: DOXYCYCLINE HYCLATE 100 MG CAPSULE PO SCH (17:09)
[2018-08-21] MEDS: DONEPEZIL HCL 10 MG TABLET (FP) GT SCH (21:48)
[2018-08-21] MEDS: THIAMINE HCL 100 MG TABLET (FP) PO SCH (21:49)
[2018-08-22] MEDS: DEXTROSE 5%-WATER - 1,000 ML IV SCH ×4 (01:05→16:19)
[2018-08-22] MEDS: IBUPROFEN 800 MG/8 ML IJ IVPB PRN (01:13)
[2018-08-22] MEDS ORDERED: ACETAMINOPHEN 1000 MG/100 ML VIAL (NON FORMULARY) IVPB ONE (03:57)
--- NOTE | 2018-08-22 04:33 | RAPID ---
Physical Examination Vital Signs: Vital Signs Temperature 101 F H 08/22/18 02:00 Pulse Rate 115 H 08/22/18 02:00 Respiratory Rate 20 08/22/18 02:00 Blood Pressure 126/78 08/22/18 02:00 O2 Sat by Pulse Oximetry (%) 100 08/21/18 21:00 Labs: CBC, BMP 08/21/18 06:30 08/21/18 17:00 Rapid Response - Rapid Response Assessment: rapid response called at 3;48 patient was shivering perspiring and had a fever of note patient has been here over 3 weeks with fever of unknown origin and AMS vitals at 3: 49 101.2 rectal; bp 122/63, sp02 87% on room air; after non- rebreather 94% gen: distressed; rigors CV: RRR; s1 s2 lungs:lungs: CTA B/L extremities: contracted B/L plan: 1gram IV tylenol; recheck vital patients sodium was 152 this am- increased his additional tube feed water to 250 ml from 50 ml
[2018-08-22] MEDS: INSULIN SLIDING SCALE (NOVOLOG) 1 VIAL SQ SCH ×4 (06:52→22:23)
[2018-08-22] MEDS: HEPARIN NA (PORCINE) 5,000 UNITS/ML 1ML VIAL SQ SCH ×3 (06:52→22:22)
[2018-08-22] MEDS: ZINC SULFATE 220 MG CAPSULE (FP) GT SCH (07:44)
[2018-08-22 07:54] LABS: BASO % 0.5 % (0-2.0); EOS % 0.1 % (0-4.5); MCH 31.1 pg (25.7-33.7); MCHC 32.3 g/dl (32.0-35.9); MEAN CELL VOLUME 96.3 fl (80-96); MONO % 5.1 % (3.8-10.2); NEUT % 86.3 % (42.8-82.8); PLATELET COUNT 179 K/MM3 (134-434); RBC 3.84 M/mm3 (4.00-5.60); RDW 17.3 % (11.9-15.9); WHITE BLOOD COUNT 12.2 K/mm3 (4.0-10.0)
[2018-08-22 08:25] LABS: ANION GAP 15 MMOL/L (8-16); BLOOD UREA NITROGEN 24 mg/dL (7-18); CALCIUM 8.4 mg/dL (8.5-10.1); CHLORIDE 110 mmol/L (98-107); CO2 24 mmol/L (21-32); CREATININE 1.1 mg/dL (0.55-1.3); GLUCOSE,RANDOM 190 mg/dL (74-106); MAGNESIUM 2.4 mg/dL (1.8-2.4); PHOSPHOROUS 2.4 mg/dL (2.5-4.9); POTASSIUM 3.6 mmol/L (3.5-5.1); SODIUM 148 mmol/L (136-145)
[2018-08-22] MEDS ORDERED: PT OWN MED DRAWER 7, Y5N ONE ×2 (11:22→17:54)
[2018-08-22] MEDS: ASPIRIN 81 MG CHEWABLE TABLETS PO SCH (11:23)
[2018-08-22] MEDS: VALPROATE SODIUM 250 MG/5 ML UNIT DOSE CUP GT SCH ×2 (11:23→22:22)
[2018-08-22] MEDS: DOXYCYCLINE HYCLATE 100 MG CAPSULE PO SCH ×2 (11:23→17:59)
[2018-08-22] MEDS: ASCORBIC ACID 500 MG TABLET (FP) GT SCH (11:23)
--- NOTE | 2018-08-22 11:30 | PN ---
Progress Note (short form) - Note Progress Note: Renal follow up for Hypernatremia Pt seen and examined at the bedside s/p SCRIPT GIRL for Fever and shivering earlier this am remains febrile now on NGT feeds and IVF Vital Signs Temperature 100.9 F H 08/22/18 11:25 Pulse Rate 101 H 08/22/18 11:25 Respiratory Rate 22 H 08/22/18 11:25 Blood Pressure 119/78 08/22/18 11:25 O2 Sat by Pulse Oximetry (%) 100 08/21/18 21:00 Intake & Output 08/19/18 08/20/18 08/21/18 08/22/18 23:59 23:59 23:59 23:59 Intake Total 1380 2800 2500 Balance 1380 2800 2500 NAD, Febrile not alert NGT in place Neck supple RRR Course BS soft NT/ND Contracted no LE edema, clubbing or cyanosis CBC, BMP 08/22/18 06:00 08/22/18 06:00 Current Medications Acetaminophen (Tylenol Suppository -) 650 mg AR Q6H PRN PRN Reason: FEVER Last Admin: 08/21/18 10:50 Dose: 650 mg Ascorbic Acid (Vitamin C -) 500 mg GT DAILY [facility] Last Admin: 08/22/18 11:23 Dose: 500 mg Aspirin (Asa -) 81 mg PO DAILY [facility] Last Admin: 08/22/18 11:23 Dose: 81 mg Collagenase (Santyl -) 1 applic TP DAILY [facility]; Protocol Last Admin: 08/21/18 15:33 Dose: 1 applic Donepezil HCl (Aricept -) 10 mg GT HS [facility] Last Admin: 08/21/18 21:48 Dose: 10 mg Doxycycline Hyclate (Vibramycin -) 100 mg PO BID@1000,1800 [facility] Last Admin: 08/22/18 11:23 Dose: 100 mg Heparin Sodium (Porcine) (Heparin -) 5,000 unit SQ TID [facility] Last Admin: 08/22/18 06:52 Dose: 5,000 unit Dextrose (D5w -) 1,000 mls @ 130 mls/hr IV Q8H [facility] Last Admin: 08/22/18 06:50 Dose: Not Given Ibuprofen (Caldolor Injection -) 400 mg IVPB Q8H PRN PRN Reason: PAIN LEVEL 1 - 3 Stop: 08/22/18 17:24 Last Admin: 08/22/18 01:13 Dose: 400 mg Insulin Aspart (Novolog Vial Sliding Scale -) 1 vial SQ ACHS [facility]; Protocol Last Admin: 08/22/18 06:52 Dose: 4 units Thiamine HCl (Vitamin B1 -) 100 mg PO HS [facility] Last Admin: 08/21/18 21:49 Dose: 100 mg Valproate Sodium (Depakene -) 250 mg GT BID [facility] Last Admin: 08/22/18 11:23 Dose: 250 mg Zinc Sulfate (Orazinc -) 220 mg GT DAILY@0800 [facility] Last Admin: 08/22/18 07:44 Dose: 220 mg 62 year old gentleman with hx of CVA, Dementia, Hx of ETOH abuse, HLD who presented with AMS, Fevers and poor oral intake with encephlopathy/MRSA PNA/ Persistent fevers and hypernatremia. #Hypernatremia (free water deficit ~4L) in setting of persistent fevers #AMS/Encephlopathy #Fevers #MRSA PNA #Dementia with hx of CVA Serum na is improving however pt with coruse BS on examination. Will get stat CXR to r/o fluid overload. If CXR is normal can resume IVF at 125cc per hour Trend Na daily water via NGT as tolerated as well Abx as per ID antipyretics as needed Thank you Gregorio Aldrich DO
[2018-08-22] MEDS ORDERED: POTASSIUM PHOSPHATE 15 MM in DEXTROSE 5%-WATER - 250 ML IVPB ONE (13:00)
--- NOTE | 2018-08-22 13:04 | PN ---
Progress Note, Physician History of Present Illness: fevers continue sister in room xray report noted events noted from yesterday - Current Medication List Current Medications: Active Medications Acetaminophen (Tylenol Suppository -) 650 mg MA Q6H PRN PRN Reason: FEVER Last Admin: 08/21/18 10:50 Dose: 650 mg Ascorbic Acid (Vitamin C -) 500 mg GT DAILY [facility] Last Admin: 08/22/18 11:23 Dose: 500 mg Aspirin (Asa -) 81 mg PO DAILY [facility] Last Admin: 08/22/18 11:23 Dose: 81 mg Collagenase (Santyl -) 1 applic TP DAILY [facility]; Protocol Last Admin: 08/21/18 15:33 Dose: 1 applic Donepezil HCl (Aricept -) 10 mg GT HS [facility] Last Admin: 08/21/18 21:48 Dose: 10 mg Doxycycline Hyclate (Vibramycin -) 100 mg PO BID@1000,1800 [facility] Last Admin: 08/22/18 11:23 Dose: 100 mg Heparin Sodium (Porcine) (Heparin -) 5,000 unit SQ TID [facility] Last Admin: 08/22/18 06:52 Dose: 5,000 unit Dextrose (D5w -) 1,000 mls @ 130 mls/hr IV Q8H [facility] Last Admin: 08/22/18 06:50 Dose: Not Given Potassium Phosphate 15 mm/ (Dextrose) 255 mls @ 62.5 mls/hr IVPB ONCE ONE Stop: 08/22/18 17:04 Ibuprofen (Caldolor Injection -) 400 mg IVPB Q8H PRN PRN Reason: PAIN LEVEL 1 - 3 Stop: 08/22/18 17:24 Last Admin: 08/22/18 01:13 Dose: 400 mg Insulin Aspart (Novolog Vial Sliding Scale -) 1 vial SQ ACHS [facility]; Protocol Last Admin: 08/22/18 11:59 Dose: 2 units Thiamine HCl (Vitamin B1 -) 100 mg PO HS [facility] Last Admin: 08/21/18 21:49 Dose: 100 mg Valproate Sodium (Depakene -) 250 mg GT BID [facility] Last Admin: 08/22/18 11:23 Dose: 250 mg Zinc Sulfate (Orazinc -) 220 mg GT DAILY@0800 [facility] Last Admin: 08/22/18 07:44 Dose: 220 mg - Objective Vital Signs: Vital Signs Temperature 100.9 F H 08/22/18 11:25 Pulse Rate 101 H 08/22/18 11:25 Respiratory Rate 22 H 08/22/18 11:25 Blood Pressure 119/78 08/22/18 11:25 O2 Sat by Pulse Oximetry (%) 100 08/22/18 10:00 Constitutional: Yes: No Distress, Calm Cardiovascular: Yes: S1, S2 Respiratory: Yes: Regular, Poor Air Entry Gastrointestinal: Yes: Normal Bowel Sounds, Soft Musculoskeletal: Yes: WNL Extremities: Yes: Other Neurological: Yes: Other Labs: CBC, BMP 08/22/18 06:00 08/22/18 06:00 INR, PTT INR 1.29 (0.83-1.09) H 07/29/18 05:15 Assessment/Plan also now patient is coughing and producing sputum Altered Mental Status r/o Neuroleptic Malignant Syndrome r/o Seizures Seizure Disorder h/o CVA Schizophrenia Alzheimer's Dementia drug reaction mrsa pneumonia plan continue oral abx consider ng tube advanced looking at the xray nutrition rest as per the team
--- NOTE | 2018-08-22 13:27 | PN ---
Physical Exam: SUBJECTIVE: Patient seen and examined. He is awake today. No meaningful changes. rapid response noted OBJECTIVE: Vital Signs Period Temp Pulse Resp BP Sys/Cortes Pulse Ox Last 24 Hr 98.8 F-103.0 F 85-123 18-22 110-126/60-78 100-100 PE Neuro: awake, non verbal HEENT: NGT Pulm: upper resp rhonchi CV: s1 s2 rrr Abd: s nt nd + bs Ext: contracted UE Laboratory Results - last 24 hr 08/22/18 08/22/18 08/22/18 01:46 05:30 06:00 WBC RBC Hgb Hct MCV MCH MCHC RDW Plt Count MPV Absolute Neuts (auto) Neutrophils % Lymphocytes % Monocytes % Eosinophils % Basophils % Nucleated RBC % Sodium 148 H Potassium 3.6 Chloride 110 H Carbon Dioxide 24 Anion Gap 15 BUN 24 H Creatinine 1.1 Creat Clearance w eGFR > 60 POC Glucometer 155 211 Random Glucose 190 H Calcium 8.4 L Phosphorus 2.4 L Magnesium 2.4 08/22/18 08/22/18 06:00 11:46 WBC 12.2 H RBC 3.84 L Hgb 12.0 Hct 37.0 MCV 96.3 H MCH 31.1 MCHC 32.3 RDW 17.3 H Plt Count 179 D MPV 11.0 Absolute Neuts (auto) 10.5 H Neutrophils % 86.3 H Lymphocytes % 8.0 D Monocytes % 5.1 Eosinophils % 0.1 Basophils % 0.5 Nucleated RBC % 0 Sodium Potassium Chloride Carbon Dioxide Anion Gap BUN Creatinine Creat Clearance w eGFR POC Glucometer 175 Random Glucose Calcium Phosphorus Magnesium Active Medications Generic Name Dose Route Start Last Admin Trade Name Reginoq PRN Reason Stop Dose Admin Acetaminophen 650 mg 08/19/18 21:45 08/21/18 10:50 Tylenol Suppository - [place] 650 mg Q6H PRN Administration FEVER Ascorbic Acid 500 mg 08/18/18 14:59 08/22/18 11:23 Vitamin C - GT 500 mg DAILY [facility] Administration Aspirin 81 mg 08/01/18 10:00 08/22/18 11:23 Asa - PO 81 mg DAILY [facility] Administration Collagenase 1 applic 08/16/18 12:15 08/21/18 15:33 Santyl - TP 1 applic DAILY [facility] Administration Protocol Donepezil HCl 10 mg 08/18/18 14:59 08/21/18 21:48 Aricept - GT 10 mg HS [facility] Administration Doxycycline Hyclate 100 mg 08/21/18 18:00 08/22/18 11:23 Vibramycin - PO 100 mg BID@1000,1800 [facility] Administration Heparin Sodium (Porcine) 5,000 unit 08/08/18 14:00 08/22/18 06:52 Heparin - SQ 5,000 unit TID [facility] Administration Dextrose 1,000 mls @ 130 mls/hr 08/21/18 12:45 08/22/18 06:50 D5w - IV Not Given Q8H [facility] Potassium Phosphate 15 mm/ 255 mls @ 62.5 mls/hr 08/22/18 13:00 Dextrose IVPB 08/22/18 17:04 ONCE ONE Ibuprofen 400 mg 08/20/18 17:25 08/22/18 01:13 Caldolor Injection - IVPB 08/22/18 17:24 400 mg Q8H PRN Administration PAIN LEVEL 1 - 3 Insulin Aspart 1 vial 08/13/18 11:00 08/22/18 11:59 Novolog Vial Sliding Scale - SQ 2 units ACHS [facility] Administration Protocol Thiamine HCl 100 mg 08/07/18 22:00 08/21/18 21:49 Vitamin B1 - PO 100 mg HS [facility] Administration Valproate Sodium 250 mg 08/18/18 22:00 08/22/18 11:23 Depakene - GT 250 mg BID [facility] Administration Zinc Sulfate 220 mg 08/18/18 15:00 08/22/18 07:44 Orazinc - GT 220 mg DAILY@0800 [facility] Administration Microbiology 08/19/18 17:00 Gram Stain - Final Cerebral Spinal Fluid - Lumbar Puncture CSF Culture - Final NO GROWTH AFTER 48 HOURS INCUBATION Imaging: CXR 08/22: some congestive changes Assessment: This is a 62 year old male with PMHx of dementia, prior alcohol abuse, CVA's, and hyperlipidemia. He presented to the ED with an altered mental status, poor oral intake of oral foods and fluids. Patient was reportedly on haldol and seroquel and has been more lethargic with increased muscle rigidity from NH. Plan: 1. Acute metabolic encephalopathy/fevers - Etiology unclear ?Neuroleptic malignant syndrome - LP results NGTD - [facility]le imaging negative - Defer to neuro for further recs 2. Fevers, persistent - Vanco stopped - No further abx at this time per d/w ID 3. MRSA pneumonia - Blood cultures negative - +mrsa on sputum - s/p course of vanco 4. Hypernatremia - Improved following D5W infusion - 2.3L deficit today - Decrease D5W @84cc/hr - Renal following 5. Nutrition - NGT feeds with vital 1.2 with uptitrate as tolerated - Change free water flushes to 65cc - Obtain KUB eval for NGT placement 6. Seizure Disorder - Valproate 250mg IV BID, Donepezil 10mg PO hs. 7. h/o CVA - ASA 8. Schizophrenia/ Alzheimer's Dementia - Meds as listed Visit type - Emergency Visit Emergency Visit: Yes ED Registration Date: 07/28/18 Care time: The patient presented to the Emergency Department on the above date and was hospitalized for further evaluation of their emergent condition. - New Patient This patient is new to me today: No - Critical Care Critical Care patient: No
[2018-08-22] MEDS ORDERED: DEXTROSE 5%-WATER - 1,000 ML IV SCH (13:31)
[2018-08-22 14:47] VITALS: BMI 23.1
[2018-08-22] MEDS: LORATADINE 10 MG TABLET PO SCH (16:16)
[2018-08-22] MEDS: COLLAGENASE CLOSTRIDIUM HIST. 30 GRAMS TUBE TP SCH (17:39)
[2018-08-22] MEDS: ACETAMINOPHEN 650 MG SUPP.RECT PR PRN (19:55)
[2018-08-22] MEDS: DONEPEZIL HCL 10 MG TABLET (FP) GT SCH (22:22)
[2018-08-22] MEDS: THIAMINE HCL 100 MG TABLET (FP) PO SCH (22:22)
[2018-08-23] MEDS: HEPARIN NA (PORCINE) 5,000 UNITS/ML 1ML VIAL SQ SCH ×3 (06:25→22:43)
[2018-08-23] MEDS: INSULIN SLIDING SCALE (NOVOLOG) 1 VIAL SQ SCH ×4 (06:26→22:44)
--- NOTE | 2018-08-23 07:46 | PN ---
Progress Note, Physician Chief Complaint: Patient remained at his base line, altered, , failed speech and swallow , throat secretions History of Present Illness: 62 year old male with PMHx of dementia, prior alcohol abuse, CVA's, and hyperlipidemia. He presented to the ED with an altered mental status, poor oral intake of oral foods and fluids. Patient was reportedly on haldol and seroquel and has been more lethargic with increased muscle rigidity from NH. - Current Medication List Current Medications: Active Medications Acetaminophen (Tylenol Suppository -) 650 mg AR Q6H PRN PRN Reason: FEVER Last Admin: 08/22/18 19:55 Dose: 650 mg Ascorbic Acid (Vitamin C -) 500 mg GT DAILY [facility] Last Admin: 08/22/18 11:23 Dose: 500 mg Aspirin (Asa -) 81 mg PO DAILY [facility] Last Admin: 08/22/18 11:23 Dose: 81 mg Collagenase (Santyl -) 1 applic TP DAILY [facility]; Protocol Last Admin: 08/22/18 17:39 Dose: 1 applic Donepezil HCl (Aricept -) 10 mg GT HS [facility] Last Admin: 08/22/18 22:22 Dose: 10 mg Doxycycline Hyclate (Vibramycin -) 100 mg PO BID@1000,1800 [facility] Last Admin: 08/22/18 17:59 Dose: 100 mg Heparin Sodium (Porcine) (Heparin -) 5,000 unit SQ TID [facility] Last Admin: 08/23/18 06:25 Dose: 5,000 unit Dextrose (D5w -) 1,000 mls @ 84 mls/hr IV ASDIR [facility] Last Admin: 08/22/18 16:19 Dose: 84 mls/hr Insulin Aspart (Novolog Vial Sliding Scale -) 1 vial SQ ACHS [facility]; Protocol Last Admin: 08/23/18 06:26 Dose: Not Given Loratadine (Claritin -) 10 mg PO DAILY [facility] Last Admin: 08/22/18 16:16 Dose: 10 mg Thiamine HCl (Vitamin B1 -) 100 mg PO HS [facility] Last Admin: 08/22/18 22:22 Dose: 100 mg Valproate Sodium (Depakene -) 250 mg GT BID [facility] Last Admin: 08/22/18 22:22 Dose: 250 mg Zinc Sulfate (Orazinc -) 220 mg GT DAILY@0800 [facility] Last Admin: 08/22/18 07:44 Dose: 220 mg - Objective Vital Signs: Vital Signs Temperature 99.1 F 08/23/18 06:00 Pulse Rate 90 08/23/18 06:00 Respiratory Rate 20 08/23/18 06:00 Blood Pressure 128/57 L 08/23/18 06:00 O2 Sat by Pulse Oximetry (%) 97 08/22/18 21:00 Elderly man oriented to self , throat secretions + HEENT: MM moist, throat secretions, NG tube at place NECK: No JVD No Bruit CHEST: Conducted sounds CVS: s1S2 R ABD: No distention BS EXT: Contracture, Decubitus ulcers B/L trochanteric ulceration, Left Heel ulcer [employer]: Oriented to self , no interval changes Labs: CBC, BMP 08/23/18 06:00 08/23/18 06:00 - ....Imaging X-ray: Report Reviewed Problem List - Problems (1) Toxic metabolic encephalopathy Assessment/Plan: Patient has base line Dementia present with worsening alertness, failed speech and swallow, EEG, MRI unremarkable, still altered, on NG tube feeding, off Psychotropic meds will discuss with family about Goals of acre. Code(s): G92 - TOXIC ENCEPHALOPATHY (2) Hypernatremia Assessment/Plan: Resolved now on NG tube free water cont same F/U BMP Code(s): E87.0 - HYPEROSMOLALITY AND HYPERNATREMIA (3) Neuroleptic malignant syndrome Code(s): G21.0 - MALIGNANT NEUROLEPTIC SYNDROME (4) PNA (pneumonia) Assessment/Plan: MRSA treated with Vancomycin now on Doxycycline Code(s): J18.9 - PNEUMONIA, UNSPECIFIED ORGANISM (5) Schizophrenia Assessment/Plan: Chronic Code(s): F20.9 - SCHIZOPHRENIA, UNSPECIFIED (6) Seizures Assessment/Plan: Cont current meds Code(s): R56.9 - UNSPECIFIED CONVULSIONS (7) Fever of unknown origin Assessment/Plan: as per ID no infectious sourse will call Surgery to evalute wound and consider PEG after discussing with HCP Code(s): R50.9 - FEVER, UNSPECIFIED (8) Excessive mucus secretion Assessment/Plan: Will add scopolamine patch and observe Code(s): [id number] - (9) Hypokalemia Assessment/Plan: repleted Code(s): E87.6 - HYPOKALEMIA (10) MEE (acute kidney injury) Assessment/Plan: Resoved Code(s): N17.9 - ACUTE KIDNEY FAILURE, UNSPECIFIED
[2018-08-23 07:52] LABS: BASO % 0.1 % (0-2.0); EOS % 1.4 % (0-4.5); HEMATOCRIT 28.7 % (35.4-49); HEMOGLOBIN 9.7 GM/dL (11.7-16.9); LYMPH % 13.7 % (8-40); MCH 31.7 pg (25.7-33.7); MCHC 33.9 g/dl (32.0-35.9); MEAN CELL VOLUME 93.3 fl (80-96); MEAN PLT VOLUME 10.4 fl (7.5-11.1); MONO % 4.8 % (3.8-10.2); PLATELET COUNT 132 K/MM3 (134-434); RBC 3.08 M/mm3 (4.00-5.60); RDW 17.1 % (11.9-15.9); WHITE BLOOD COUNT 10.2 K/mm3 (4.0-10.0)
[2018-08-23] MEDS: ZINC SULFATE 220 MG CAPSULE (FP) GT SCH (08:00)
[2018-08-23 08:11] LABS: ANION GAP 7 MMOL/L (8-16); BLOOD UREA NITROGEN 17 mg/dL (7-18); CALCIUM 7.6 mg/dL (8.5-10.1); CHLORIDE 104 mmol/L (98-107); CO2 29 mmol/L (21-32); CREATININE 0.7 mg/dL (0.55-1.3); GLUCOSE,RANDOM 165 mg/dL (74-106); POTASSIUM 3.2 mmol/L (3.5-5.1); SODIUM 140 mmol/L (136-145)
[2018-08-23 10:14] LABS: ANISOCYTOSIS 2+; MACROCYTOSIS 0; OVALOCYTE 1+; PLATELET ESTIMATE DECREASED
[2018-08-23] MEDS ORDERED: PT OWN MED DRAWER 7, Y5N ONE ×2 (10:20→17:22)
[2018-08-23] MEDS: ASPIRIN 81 MG CHEWABLE TABLETS PO SCH (10:57)
[2018-08-23] MEDS: VALPROATE SODIUM 250 MG/5 ML UNIT DOSE CUP GT SCH ×2 (10:57→22:43)
[2018-08-23] MEDS: LORATADINE 10 MG TABLET PO SCH (10:57)
[2018-08-23] MEDS: ASCORBIC ACID 500 MG TABLET (FP) GT SCH (10:57)
[2018-08-23] MEDS: DOXYCYCLINE HYCLATE 100 MG CAPSULE PO SCH ×2 (10:57→17:29)
[2018-08-23] MEDS: COLLAGENASE CLOSTRIDIUM HIST. 30 GRAMS TUBE TP SCH (10:58)
[2018-08-23] MEDS ORDERED: POTASSIUM CHLORIDE ORAL LIQUID 20 MEQ/15 ML PO ONE (12:13)
--- NOTE | 2018-08-23 13:35 | PN ---
Progress Note, Physician History of Present Illness: stable starting to remain afebrile - Current Medication List Current Medications: Active Medications Acetaminophen (Tylenol Suppository -) 650 mg [place] Q6H PRN PRN Reason: FEVER Last Admin: 08/22/18 19:55 Dose: 650 mg Ascorbic Acid (Vitamin C -) 500 mg GT DAILY [facility] Last Admin: 08/23/18 10:57 Dose: 500 mg Aspirin (Asa -) 81 mg PO DAILY [facility] Last Admin: 08/23/18 10:57 Dose: 81 mg Collagenase (Santyl -) 1 applic TP DAILY [facility]; Protocol Last Admin: 08/23/18 10:58 Dose: 1 applic Donepezil HCl (Aricept -) 10 mg GT HS [facility] Last Admin: 08/22/18 22:22 Dose: 10 mg Doxycycline Hyclate (Vibramycin -) 100 mg PO BID@1000,1800 [facility] Last Admin: 08/23/18 10:57 Dose: 100 mg Heparin Sodium (Porcine) (Heparin -) 5,000 unit SQ TID [facility] Last Admin: 08/23/18 06:25 Dose: 5,000 unit Dextrose (D5w -) 1,000 mls @ 84 mls/hr IV ASDIR [facility] Last Admin: 08/22/18 16:19 Dose: 84 mls/hr Insulin Aspart (Novolog Vial Sliding Scale -) 1 vial SQ ACHS [facility]; Protocol Last Admin: 08/23/18 11:52 Dose: Not Given Loratadine (Claritin -) 10 mg PO DAILY [facility] Last Admin: 08/23/18 10:57 Dose: 10 mg Scopolamine HBr (Transderm-Scop -) 1 patch TD Q72H [facility] Thiamine HCl (Vitamin B1 -) 100 mg PO HS [facility] Last Admin: 08/22/18 22:22 Dose: 100 mg Valproate Sodium (Depakene -) 250 mg GT BID [facility] Last Admin: 08/23/18 10:57 Dose: 250 mg Zinc Sulfate (Orazinc -) 220 mg GT DAILY@0800 [facility] Last Admin: 08/23/18 08:00 Dose: 220 mg - Objective Vital Signs: Vital Signs Temperature 99.1 F 08/23/18 09:51 Pulse Rate 90 08/23/18 09:51 Respiratory Rate 0 L 08/23/18 09:51 Blood Pressure 128/82 08/23/18 09:51 O2 Sat by Pulse Oximetry (%) 97 08/22/18 21:00 Constitutional: Yes: No Distress, Calm Cardiovascular: Yes: S1, S2 Respiratory: Yes: Regular, Poor Air Entry Gastrointestinal: Yes: Normal Bowel Sounds, Soft, Other (ng in place) Musculoskeletal: Yes: Other Extremities: Yes: Other Neurological: Yes: Alert, Other Psychiatric: Yes: Other Labs: CBC, BMP 08/23/18 06:00 08/23/18 06:00 INR, PTT INR 1.29 (0.83-1.09) H 07/29/18 05:15 Assessment/Plan also now patient is coughing and producing sputum Altered Mental Status r/o Neuroleptic Malignant Syndrome r/o Seizures Seizure Disorder h/o CVA Schizophrenia Alzheimer's Dementia drug reaction mrsa pneumonia plan continue oral abx will need peg tube nutrition rest as per the team
--- NOTE | 2018-08-23 13:44 | PN ---
Progress Note (short form) - Note Progress Note: Renal follow up for Hypernatremia Pt seen and examined at the bedside sleeping off IVF on tube feeds Vital Signs Temperature 99.1 F 08/23/18 09:51 Pulse Rate 90 08/23/18 09:51 Respiratory Rate 0 L 08/23/18 09:51 Blood Pressure 128/82 08/23/18 09:51 O2 Sat by Pulse Oximetry (%) 97 08/22/18 21:00 Intake & Output 08/20/18 08/21/18 08/22/18 08/23/18 23:59 23:59 23:59 23:59 Intake Total 2800 5000 2408 Balance 2800 5000 2408 NAD, Febrile not alert NGT in place Neck supple RRR Course BS soft NT/ND Contracted no LE edema, clubbing or cyanosis CBC, BMP 08/23/18 06:00 08/23/18 06:00 Laboratory Tests 08/23/18 06:00 Calcium 7.6 L Current Medications Acetaminophen (Tylenol Suppository -) 650 mg [place] Q6H PRN PRN Reason: FEVER Last Admin: 08/22/18 19:55 Dose: 650 mg Ascorbic Acid (Vitamin C -) 500 mg GT DAILY [facility] Last Admin: 08/23/18 10:57 Dose: 500 mg Aspirin (Asa -) 81 mg PO DAILY [facility] Last Admin: 08/23/18 10:57 Dose: 81 mg Collagenase (Santyl -) 1 applic TP DAILY [facility]; Protocol Last Admin: 08/23/18 10:58 Dose: 1 applic Donepezil HCl (Aricept -) 10 mg GT HS [facility] Last Admin: 08/22/18 22:22 Dose: 10 mg Doxycycline Hyclate (Vibramycin -) 100 mg PO BID@1000,1800 [facility] Last Admin: 08/23/18 10:57 Dose: 100 mg Heparin Sodium (Porcine) (Heparin -) 5,000 unit SQ TID [facility] Last Admin: 08/23/18 06:25 Dose: 5,000 unit Dextrose (D5w -) 1,000 mls @ 84 mls/hr IV ASDIR [facility] Last Admin: 08/22/18 16:19 Dose: 84 mls/hr Insulin Aspart (Novolog Vial Sliding Scale -) 1 vial SQ ACHS [facility]; Protocol Last Admin: 08/23/18 11:52 Dose: Not Given Loratadine (Claritin -) 10 mg PO DAILY [facility] Last Admin: 08/23/18 10:57 Dose: 10 mg Scopolamine HBr (Transderm-Scop -) 1 patch TD Q72H [facility] Thiamine HCl (Vitamin B1 -) 100 mg PO HS [facility] Last Admin: 08/22/18 22:22 Dose: 100 mg Valproate Sodium (Depakene -) 250 mg GT BID [facility] Last Admin: 08/23/18 10:57 Dose: 250 mg Zinc Sulfate (Orazinc -) 220 mg GT DAILY@0800 [facility] Last Admin: 08/23/18 08:00 Dose: 220 mg 62 year old gentleman with hx of CVA, Dementia, Hx of ETOH abuse, HLD who presented with AMS, Fevers and poor oral intake with encephlopathy/MRSA PNA/ Persistent fevers and hypernatremia. #Hypernatremia (free water deficit ~4L) in setting of persistent fevers #AMS/Encephlopathy #Fevers #MRSA PNA #Dementia with hx of CVA serum Na now improved to normal limits off IVF continue free water with NGT PRN lasix as needed for congestion Trend electrolytes daily Thank you Gregorio Aldrich DO
[2018-08-23] MEDS: SCOPOLAMINE HYDROBROMIDE 1 PATCH PATCH.TD72 TD SCH (14:44)
[2018-08-23] MEDS: DEXTROSE 5%-WATER - 1,000 ML IV SCH (14:46)
[2018-08-23] MEDS: DONEPEZIL HCL 10 MG TABLET (FP) GT SCH (22:43)
[2018-08-23] MEDS: THIAMINE HCL 100 MG TABLET (FP) PO SCH (22:43)
[2018-08-24] MEDS: HEPARIN NA (PORCINE) 5,000 UNITS/ML 1ML VIAL SQ SCH ×3 (06:20→22:46)
[2018-08-24] MEDS: INSULIN SLIDING SCALE (NOVOLOG) 1 VIAL SQ SCH ×4 (06:20→22:46)
--- NOTE | 2018-08-24 07:59 | PN ---
Progress Note, Physician Chief Complaint: Patient remained at his base line, altered, , failed speech and swallow , History of Present Illness: 62 year old male with PMHx of dementia, prior alcohol abuse, CVA's, and hyperlipidemia. He presented to the ED with an altered mental status, poor oral intake of oral foods and fluids. Patient was reportedly on haldol and seroquel and has been more lethargic with increased muscle rigidity from NH. - Current Medication List Current Medications: Active Medications Acetaminophen (Tylenol Suppository -) [address] Q6H PRN PRN Reason: FEVER Last Admin: 08/22/18 19:55 Dose: 650 mg Ascorbic Acid (Vitamin C -) 500 mg GT DAILY [facility] Last Admin: 08/23/18 10:57 Dose: 500 mg Aspirin (Asa -) 81 mg PO DAILY [facility] Last Admin: 08/23/18 10:57 Dose: 81 mg Collagenase (Santyl -) 1 applic TP DAILY [facility]; Protocol Last Admin: 08/23/18 10:58 Dose: 1 applic Donepezil HCl (Aricept -) 10 mg GT HS [facility] Last Admin: 08/23/18 22:43 Dose: 10 mg Doxycycline Hyclate (Vibramycin -) 100 mg PO BID@1000,1800 [facility] Last Admin: 08/23/18 17:29 Dose: 100 mg Heparin Sodium (Porcine) (Heparin -) 5,000 unit SQ TID [facility] Last Admin: 08/24/18 06:20 Dose: 5,000 unit Dextrose (D5w -) 1,000 mls @ 84 mls/hr IV ASDIR [facility] Last Admin: 08/23/18 14:46 Dose: 84 mls/hr Insulin Aspart (Novolog Vial Sliding Scale -) 1 vial SQ ACHS [facility]; Protocol Last Admin: 08/24/18 06:20 Dose: Not Given Loratadine (Claritin -) 10 mg PO DAILY [facility] Last Admin: 08/23/18 10:57 Dose: 10 mg Scopolamine HBr (Transderm-Scop -) 1 patch TD Q72H [facility] Last Admin: 08/23/18 14:44 Dose: 1 patch Thiamine HCl (Vitamin B1 -) 100 mg PO HS [facility] Last Admin: 08/23/18 22:43 Dose: 100 mg Valproate Sodium (Depakene -) 250 mg GT BID [facility] Last Admin: 08/23/18 22:43 Dose: 250 mg Zinc Sulfate (Orazinc -) 220 mg GT DAILY@0800 [facility] Last Admin: 08/23/18 08:00 Dose: 220 mg - Objective Vital Signs: Vital Signs Temperature 98.0 F 08/24/18 06:00 Pulse Rate 82 08/24/18 06:00 Respiratory Rate 19 08/24/18 06:00 Blood Pressure 109/62 08/24/18 06:00 O2 Sat by Pulse Oximetry (%) 97 08/23/18 21:00 Elderly man oriented to self , throat secretions + HEENT: MM moist, throat secretions, NG tube at place NECK: No JVD No Bruit CHEST: Conducted sounds CVS: s1S2 R ABD: No distention BS EXT: Contracture, Decubitus ulcers B/L trochanteric ulceration, Left Heel ulcer SURGICAL PATHOLOGIST: Oriented to self , no interval changes Labs: CBC, BMP CBC, BMP 08/24/18 07:15 08/24/18 07:15 Problem List - Problems (1) Toxic metabolic encephalopathy Assessment/Plan: Patient has base line Dementia present with worsening alertness, failed speech and swallow, EEG, MRI unremarkable, still altered, on NG tube feeding, off Psychotropic meds will discuss with family about Goals of care Code(s): G92 - TOXIC ENCEPHALOPATHY (2) Hypernatremia Assessment/Plan: Resolved now on NG tube free water cont same F/U BMP Code(s): E87.0 - HYPEROSMOLALITY AND HYPERNATREMIA (3) PNA (pneumonia) Assessment/Plan: MRSA treated with Vancomycin now on Doxycycline Code(s): J18.9 - PNEUMONIA, UNSPECIFIED ORGANISM (4) Schizophrenia Assessment/Plan: Chronic Code(s): F20.9 - SCHIZOPHRENIA, UNSPECIFIED (5) Seizures Assessment/Plan: Cont current meds Code(s): R56.9 - UNSPECIFIED CONVULSIONS (6) Fever of unknown origin Assessment/Plan: as per ID no infectious sourse will call Surgery to evalute wound and consider PEG after discussing with HCP Code(s): R50.9 - FEVER, UNSPECIFIED (7) Excessive mucus secretion Assessment/Plan: improved on scopolamine patch and observe Code(s): [id number] - (8) Hypokalemia Assessment/Plan: repleted Code(s): E87.6 - HYPOKALEMIA (9) MEE (acute kidney injury) Assessment/Plan: Resoved Code(s): N17.9 - ACUTE KIDNEY FAILURE, UNSPECIFIED
[2018-08-24] MEDS: ZINC SULFATE 220 MG CAPSULE (FP) GT SCH (08:10)
[2018-08-24 09:01] LABS: BASO % 0.2 % (0-2.0); EOS % 1.2 % (0-4.5); HEMATOCRIT 29.3 % (35.4-49); HEMOGLOBIN 9.7 GM/dL (11.7-16.9); MCHC 33.1 g/dl (32.0-35.9); MEAN CELL VOLUME 93.7 fl (80-96); MEAN PLT VOLUME 11.4 fl (7.5-11.1); MONO % 3.6 % (3.8-10.2); PLATELET COUNT 161 K/MM3 (134-434); RBC 3.13 M/mm3 (4.00-5.60); RDW 17.8 % (11.9-15.9); WHITE BLOOD COUNT 12.5 K/mm3 (4.0-10.0)
[2018-08-24] MEDS ORDERED: PT OWN MED DRAWER 7, Y5N ONE ×2 (09:59→23:25)
[2018-08-24] MEDS: VALPROATE SODIUM 250 MG/5 ML UNIT DOSE CUP GT SCH ×2 (10:06→22:46)
[2018-08-24] MEDS: LORATADINE 10 MG TABLET PO SCH (10:06)
[2018-08-24] MEDS: COLLAGENASE CLOSTRIDIUM HIST. 30 GRAMS TUBE TP SCH (10:06)
[2018-08-24] MEDS: ASCORBIC ACID 500 MG TABLET (FP) GT SCH (10:06)
[2018-08-24] MEDS: ASPIRIN 81 MG CHEWABLE TABLETS PO SCH (10:06)
[2018-08-24 10:14] LABS: ANION GAP 9 MMOL/L (8-16); BLOOD UREA NITROGEN 12 mg/dL (7-18); CHLORIDE 105 mmol/L (98-107); CO2 27 mmol/L (21-32); CREATININE 0.5 mg/dL (0.55-1.3); GLUCOSE,RANDOM 119 mg/dL (74-106); POTASSIUM 3.7 mmol/L (3.5-5.1); SODIUM 141 mmol/L (136-145)
[2018-08-24] MEDS: DOXYCYCLINE HYCLATE 100 MG CAPSULE PO SCH ×2 (10:14→17:47)
--- NOTE | 2018-08-24 13:48 | PN ---
Progress Note, Physician Chief Complaint: The patient is in his bed. Clinical status unchanged. Tube feeding well tolerated. Afebrile. History of Present Illness: 62 year old gentleman with hx of CVA, Dementia, Hx of ETOH abuse, HLD who presented with AMS, Fevers and poor oral intake with encephlopathy/MRSA PNA/ Persistent fevers and hypernatremia. - Current Medication List Current Medications: Active Medications Acetaminophen (Tylenol Suppository -) 650 mg [place] Q6H PRN PRN Reason: FEVER Last Admin: 08/22/18 19:55 Dose: 650 mg Ascorbic Acid (Vitamin C -) 500 mg GT DAILY [facility] Last Admin: 08/24/18 10:06 Dose: 500 mg Aspirin (Asa -) 81 mg PO DAILY [facility] Last Admin: 08/24/18 10:06 Dose: 81 mg Collagenase (Santyl -) 1 applic TP DAILY [facility]; Protocol Last Admin: 08/24/18 10:06 Dose: 1 applic Donepezil HCl (Aricept -) 10 mg GT HS [facility] Last Admin: 08/23/18 22:43 Dose: 10 mg Doxycycline Hyclate (Vibramycin -) 100 mg PO BID@1000,1800 [facility] Last Admin: 08/24/18 10:14 Dose: 100 mg Heparin Sodium (Porcine) (Heparin -) 5,000 unit SQ TID [facility] Last Admin: 08/24/18 06:20 Dose: 5,000 unit Dextrose (D5w -) 1,000 mls @ 84 mls/hr IV ASDIR [facility] Last Admin: 08/23/18 14:46 Dose: 84 mls/hr Insulin Aspart (Novolog Vial Sliding Scale -) 1 vial SQ ACHS [facility]; Protocol Last Admin: 08/24/18 11:36 Dose: Not Given Loratadine (Claritin -) 10 mg PO DAILY [facility] Last Admin: 08/24/18 10:06 Dose: 10 mg Scopolamine HBr (Transderm-Scop -) 1 patch TD Q72H [facility] Last Admin: 08/23/18 14:44 Dose: 1 patch Thiamine HCl (Vitamin B1 -) 100 mg PO HS [facility] Last Admin: 08/23/18 22:43 Dose: 100 mg Valproate Sodium (Depakene -) 250 mg GT BID [facility] Last Admin: 08/24/18 10:06 Dose: 250 mg Zinc Sulfate (Orazinc -) 220 mg GT DAILY@0800 [facility] Last Admin: 08/24/18 08:10 Dose: 220 mg - Objective Vital Signs: Vital Signs Temperature 98.9 F 08/24/18 10:00 Pulse Rate 75 08/24/18 10:00 Respiratory Rate 20 08/24/18 10:00 Blood Pressure 108/54 L 08/24/18 10:00 O2 Sat by Pulse Oximetry (%) 100 08/24/18 09:00 Constitutional: Yes: Pallor, Thin Eyes: Yes: Conjunctiva Clear HENT: Yes: Atraumatic Neck: Yes: Trachea Midline Cardiovascular: Yes: Tachycardia, S1, S2 Respiratory: Yes: CTA Bilaterally, Diminished Gastrointestinal: Yes: Normal Bowel Sounds Edema: No Integumentary: Yes: Erythema Neurological: Yes: Unresponsive Labs: CBC, BMP 08/24/18 07:15 08/24/18 07:15 INR, PTT INR 1.29 (0.83-1.09) H 07/29/18 05:15 Assessment/Plan 62 year old gentleman with hx of CVA, Dementia, Hx of ETOH abuse, HLD who presented with AMS, Fevers and poor oral intake with encephlopathy/MRSA PNA/ Persistent fevers and hypernatremia. #Hypernatremia ...slowly resolving. #AMS/Encephlopathy #Fevers #MRSA PNA #Dementia with hx of CVA Serum Na now improved to within normal limits continue free water with NGT PRN lasix as needed for congestion Trend electrolytes daily Thanks again. Sarai Gusman MD
[2018-08-24] MEDS: DEXTROSE 5%-WATER - 1,000 ML IV SCH ×2 (14:00→22:46)
--- NOTE | 2018-08-24 14:13 | PN ---
Progress Note, Physician History of Present Illness: Pt seen and examined. Now afebrile. Remains nonverbal but without acute distress. - Current Medication List Current Medications: Active Medications Acetaminophen (Tylenol Suppository -) 650 mg [place] Q6H PRN PRN Reason: FEVER Last Admin: 08/22/18 19:55 Dose: 650 mg Ascorbic Acid (Vitamin C -) 500 mg GT DAILY [facility] Last Admin: 08/24/18 10:06 Dose: 500 mg Aspirin (Asa -) 81 mg PO DAILY [facility] Last Admin: 08/24/18 10:06 Dose: 81 mg Collagenase (Santyl -) 1 applic TP DAILY [facility]; Protocol Last Admin: 08/24/18 10:06 Dose: 1 applic Donepezil HCl (Aricept -) 10 mg GT HS [facility] Last Admin: 08/23/18 22:43 Dose: 10 mg Doxycycline Hyclate (Vibramycin -) 100 mg PO BID@1000,1800 [facility] Last Admin: 08/24/18 10:14 Dose: 100 mg Heparin Sodium (Porcine) (Heparin -) 5,000 unit SQ TID [facility] Last Admin: 08/24/18 13:55 Dose: 5,000 unit Dextrose (D5w -) 1,000 mls @ 84 mls/hr IV ASDIR [facility] Last Admin: 08/23/18 14:46 Dose: 84 mls/hr Insulin Aspart (Novolog Vial Sliding Scale -) 1 vial SQ ACHS [facility]; Protocol Last Admin: 08/24/18 11:36 Dose: Not Given Loratadine (Claritin -) 10 mg PO DAILY [facility] Last Admin: 08/24/18 10:06 Dose: 10 mg Scopolamine HBr (Transderm-Scop -) 1 patch TD Q72H [facility] Last Admin: 08/23/18 14:44 Dose: 1 patch Thiamine HCl (Vitamin B1 -) 100 mg PO HS [facility] Last Admin: 08/23/18 22:43 Dose: 100 mg Valproate Sodium (Depakene -) 250 mg GT BID [facility] Last Admin: 08/24/18 10:06 Dose: 250 mg Zinc Sulfate (Orazinc -) 220 mg GT DAILY@0800 [facility] Last Admin: 08/24/18 08:10 Dose: 220 mg - Objective Vital Signs: Vital Signs Temperature 98.9 F 08/24/18 10:00 Pulse Rate 75 08/24/18 10:00 Respiratory Rate 20 08/24/18 10:00 Blood Pressure 108/54 L 08/24/18 10:00 O2 Sat by Pulse Oximetry (%) 100 08/24/18 09:00 Constitutional: Yes: No Distress Cardiovascular: Yes: Regular Rate and Rhythm Respiratory: Yes: Regular Gastrointestinal: Yes: Normal Bowel Sounds, Soft Extremities: Yes: WNL Integumentary: Yes: Other (heel dressing) Labs: CBC, BMP 08/24/18 07:15 08/24/18 07:15 INR, PTT INR 1.29 (0.83-1.09) H 07/29/18 05:15 Microbiology 08/19/18 17:00 Cerebral Spinal Fluid - Lumbar Puncture Gram Stain - Final 08/19/18 17:00 Cerebral Spinal Fluid - Lumbar Puncture CSF Culture - Final NO GROWTH AFTER 48 HOURS INCUBATION 08/13/18 11:30 Blood - Peripheral Venous Blood Culture - Final NO GROWTH AFTER 5 DAYS INCUBATION 08/13/18 11:18 Blood - Peripheral Venous Blood Culture - Final NO GROWTH AFTER 5 DAYS INCUBATION 08/12/18 13:36 Blood - Peripheral Venous Blood Culture - Final NO GROWTH AFTER 5 DAYS INCUBATION 08/12/18 13:30 Blood - Peripheral Venous Blood Culture - Final NO GROWTH AFTER 5 DAYS INCUBATION 08/10/18 15:00 Blood - Peripheral Venous Blood Culture - Final NO GROWTH AFTER 5 DAYS INCUBATION 08/13/18 21:30 Urine - Urine Clean Catch Urine Culture - Final NO GROWTH OBTAINED 08/09/18 13:55 Blood - Peripheral Venous Blood Culture - Final NO GROWTH AFTER 5 DAYS INCUBATION 08/10/18 16:30 Urine - Urine - Catheterized Urine Culture - Final NO GROWTH OBTAINED 07/30/18 16:30 Sputum - Oropharynx Suctioned Sputum Gram Stain - Final 07/30/18 16:30 Sputum - Oropharynx Suctioned Sputum Sputum Culture - Final Mr S Aureus Yeast Like Organism 07/28/18 15:36 Blood - Peripheral Venous Blood Culture - Final NO GROWTH AFTER 5 DAYS INCUBATION 07/28/18 15:25 Blood - Peripheral Venous Blood Culture - Final NO GROWTH AFTER 5 DAYS INCUBATION 07/28/18 15:50 Urine - Urine - Catheterized Urine Culture - Final NO GROWTH OBTAINED Problem List - Problems (1) PNA (pneumonia) Code(s): J18.9 - PNEUMONIA, UNSPECIFIED ORGANISM Assessment/Plan PNA - Aspiration and MRSA isolation Alzheimers dementia Schizophrenia Fever r/o seizure d.o. Lab/Culture results noted wbc mildly elevated but currently afebrile Continue Doxycycline for now Monitor
[2018-08-24] MEDS: DONEPEZIL HCL 10 MG TABLET (FP) GT SCH (22:45)
[2018-08-24] MEDS: THIAMINE HCL 100 MG TABLET (FP) PO SCH (22:46)
[2018-08-25] MEDS: HEPARIN NA (PORCINE) 5,000 UNITS/ML 1ML VIAL SQ SCH ×3 (07:01→22:57)
[2018-08-25] MEDS: INSULIN SLIDING SCALE (NOVOLOG) 1 VIAL SQ SCH ×4 (07:01→23:17)
[2018-08-25 07:08] LABS: BASO % 0.4 % (0-2.0); EOS % 0.8 % (0-4.5); HEMOGLOBIN 10.7 GM/dL (11.7-16.9); LYMPH % 9.7 % (8-40); MCH 31.4 pg (25.7-33.7); MCHC 33.3 g/dl (32.0-35.9); MEAN CELL VOLUME 94.3 fl (80-96); MEAN PLT VOLUME 10.8 fl (7.5-11.1); MONO % 5.1 % (3.8-10.2); PLATELET COUNT 221 K/MM3 (134-434); RBC 3.39 M/mm3 (4.00-5.60); RDW 17.7 % (11.9-15.9)
[2018-08-25 07:33] LABS: ANION GAP 5 MMOL/L (8-16); BLOOD UREA NITROGEN 9 mg/dL (7-18); CALCIUM 8.2 mg/dL (8.5-10.1); CHLORIDE 105 mmol/L (98-107); CO2 31 mmol/L (21-32); CREATININE 0.5 mg/dL (0.55-1.3); GLUCOSE,RANDOM 116 mg/dL (74-106); POTASSIUM 3.9 mmol/L (3.5-5.1); SODIUM 142 mmol/L (136-145)
[2018-08-25] MEDS: ZINC SULFATE 220 MG CAPSULE (FP) GT SCH (07:49)
[2018-08-25] MEDS ORDERED: PT OWN MED DRAWER 7, Y5N ONE ×2 (09:02→17:09)
[2018-08-25] MEDS: DOXYCYCLINE HYCLATE 100 MG CAPSULE PO SCH ×2 (09:50→17:33)
[2018-08-25] MEDS: VALPROATE SODIUM 250 MG/5 ML UNIT DOSE CUP GT SCH ×2 (09:50→22:57)
[2018-08-25] MEDS: COLLAGENASE CLOSTRIDIUM HIST. 30 GRAMS TUBE TP SCH (09:51)
[2018-08-25] MEDS: ASPIRIN 81 MG CHEWABLE TABLETS PO SCH (09:51)
[2018-08-25] MEDS: LORATADINE 10 MG TABLET PO SCH (09:51)
[2018-08-25] MEDS: ASCORBIC ACID 500 MG TABLET (FP) GT SCH (09:51)
--- NOTE | 2018-08-25 10:17 | PN ---
Progress Note, Physician Chief Complaint: Patient remained at his base line, failed speech and swallow on NG tube History of Present Illness: 62 year old male with PMHx of dementia, prior alcohol abuse, CVA's, and hyperlipidemia. He presented to the ED with an altered mental status, poor oral intake of oral foods and fluids. Patient was reportedly on haldol and seroquel and has been more lethargic with increased muscle rigidity from NH. CT. MRI, EEG unremarkable, LP CSF analysis shows no infectious etiology. - Current Medication List Current Medications: Active Medications Acetaminophen (Tylenol Suppository -) 650 mg [place] Q6H PRN PRN Reason: FEVER Last Admin: 08/22/18 19:55 Dose: 650 mg Ascorbic Acid (Vitamin C -) 500 mg GT DAILY [facility] Last Admin: 08/25/18 09:51 Dose: 500 mg Aspirin (Asa -) 81 mg PO DAILY [facility] Last Admin: 08/25/18 09:51 Dose: 81 mg Collagenase (Santyl -) 1 applic TP DAILY [facility]; Protocol Last Admin: 08/25/18 09:51 Dose: 1 applic Donepezil HCl (Aricept -) 10 mg GT HS [facility] Last Admin: 08/24/18 22:45 Dose: 10 mg Doxycycline Hyclate (Vibramycin -) 100 mg PO BID@1000,1800 [facility] Last Admin: 08/25/18 09:50 Dose: 100 mg Heparin Sodium (Porcine) (Heparin -) 5,000 unit SQ TID [facility] Last Admin: 08/25/18 07:01 Dose: 5,000 unit Dextrose (D5w -) 1,000 mls @ 84 mls/hr IV ASDIR [facility] Last Admin: 08/24/18 22:46 Dose: 84 mls/hr Insulin Aspart (Novolog Vial Sliding Scale -) 1 vial SQ ACHS [facility]; Protocol Last Admin: 08/25/18 07:01 Dose: Not Given Loratadine (Claritin -) 10 mg PO DAILY [facility] Last Admin: 08/25/18 09:51 Dose: 10 mg Scopolamine HBr (Transderm-Scop -) 1 patch TD Q72H [facility] Last Admin: 08/23/18 14:44 Dose: 1 patch Thiamine HCl (Vitamin B1 -) 100 mg PO HS [facility] Last Admin: 08/24/18 22:46 Dose: 100 mg Valproate Sodium (Depakene -) 250 mg GT BID [facility] Last Admin: 08/25/18 09:50 Dose: 250 mg Zinc Sulfate (Orazinc -) 220 mg GT DAILY@0800 [facility] Last Admin: 08/25/18 07:49 Dose: 220 mg - Objective Vital Signs: Vital Signs Temperature 97.9 F 08/25/18 06:00 Pulse Rate 90 08/25/18 06:00 Respiratory Rate 20 08/25/18 06:00 Blood Pressure 116/60 08/25/18 06:00 O2 Sat by Pulse Oximetry (%) 100 08/24/18 21:00 Elderly man oriented to self , throat secretions + HEENT: MM moist, throat secretions, NG tube at place NECK: No JVD No Bruit CHEST: Conducted sounds CVS: s1S2 R ABD: No distention BS EXT: Contracture, Decubitus ulcers B/L trochanteric ulceration, Left Heel ulcer TRAINING ASSISTANT: Oriented to self , no interval changes Labs: CBC, BMP 08/25/18 06:00 08/25/18 06:00 INR, PTT INR 1.29 (0.83-1.09) H 07/29/18 05:15 Problem List - Problems (1) Toxic metabolic encephalopathy Assessment/Plan: Patient has base line Dementia present with worsening alertness, failed speech and swallow, EEG, MRI unremarkable, still altered, on NG tube feeding, off Psychotropic meds will discuss with family about Goals of care Code(s): G92 - TOXIC ENCEPHALOPATHY (2) Hypernatremia Assessment/Plan: Resolved now on NG tube free water cont same F/U BMP Code(s): E87.0 - HYPEROSMOLALITY AND HYPERNATREMIA (3) PNA (pneumonia) Assessment/Plan: MRSA treated with Vancomycin now on Doxycycline Code(s): J18.9 - PNEUMONIA, UNSPECIFIED ORGANISM (4) Schizophrenia Assessment/Plan: Chronic Code(s): F20.9 - SCHIZOPHRENIA, UNSPECIFIED (5) Seizures Assessment/Plan: Cont current meds Code(s): R56.9 - UNSPECIFIED CONVULSIONS (6) Fever of unknown origin Assessment/Plan: Resolved now will call family to get permission for PEG Code(s): R50.9 - FEVER, UNSPECIFIED (7) Excessive mucus secretion Assessment/Plan: improved on scopolamine patch and observe Code(s): [id number] - (8) Hypokalemia Assessment/Plan: Resolved Code(s): E87.6 - HYPOKALEMIA (9) MEE (acute kidney injury) Assessment/Plan: Resolved Code(s): N17.9 - ACUTE KIDNEY FAILURE, UNSPECIFIED Assessment/Plan PEG placement and can be DC home
--- NOTE | 2018-08-25 12:10 | PN ---
Progress Note, Physician Chief Complaint: The patient examined in his bed. Clinical status unchanged. Tube feeding well tolerated. Afebrile. Awake. Trying to respond to questions. History of Present Illness: 62 year old gentleman with hx of CVA, Dementia, Hx of ETOH abuse, HLD who presented with AMS, Fevers and poor oral intake with encephlopathy/MRSA PNA/ Persistent fevers and Hypernatremia. - Current Medication List Current Medications: Active Medications Acetaminophen (Tylenol Suppository -) 650 mg [place] Q6H PRN PRN Reason: FEVER Last Admin: 08/22/18 19:55 Dose: 650 mg Ascorbic Acid (Vitamin C -) 500 mg GT DAILY [facility] Last Admin: 08/25/18 09:51 Dose: 500 mg Aspirin (Asa -) 81 mg PO DAILY [facility] Last Admin: 08/25/18 09:51 Dose: 81 mg Collagenase (Santyl -) 1 applic TP DAILY [facility]; Protocol Last Admin: 08/25/18 09:51 Dose: 1 applic Donepezil HCl (Aricept -) 10 mg GT HS [facility] Last Admin: 08/24/18 22:45 Dose: 10 mg Doxycycline Hyclate (Vibramycin -) 100 mg PO BID@1000,1800 [facility] Last Admin: 08/25/18 09:50 Dose: 100 mg Heparin Sodium (Porcine) (Heparin -) 5,000 unit SQ TID [facility] Last Admin: 08/25/18 07:01 Dose: 5,000 unit Dextrose (D5w -) 1,000 mls @ 84 mls/hr IV ASDIR [facility] Last Admin: 08/24/18 22:46 Dose: 84 mls/hr Insulin Aspart (Novolog Vial Sliding Scale -) 1 vial SQ ACHS [facility]; Protocol Last Admin: 08/25/18 11:40 Dose: Not Given Loratadine (Claritin -) 10 mg PO DAILY [facility] Last Admin: 08/25/18 09:51 Dose: 10 mg Scopolamine HBr (Transderm-Scop -) 1 patch TD Q72H [facility] Last Admin: 08/23/18 14:44 Dose: 1 patch Thiamine HCl (Vitamin B1 -) 100 mg PO HS [facility] Last Admin: 08/24/18 22:46 Dose: 100 mg Valproate Sodium (Depakene -) 250 mg GT BID [facility] Last Admin: 08/25/18 09:50 Dose: 250 mg Zinc Sulfate (Orazinc -) 220 mg GT DAILY@0800 [facility] Last Admin: 08/25/18 07:49 Dose: 220 mg - Objective Vital Signs: Vital Signs Temperature 98.7 F 08/25/18 10:00 Pulse Rate 88 08/25/18 10:00 Respiratory Rate 22 H 08/25/18 10:00 Blood Pressure 132/98 08/25/18 10:00 O2 Sat by Pulse Oximetry (%) 100 08/25/18 09:00 Constitutional: Yes: Mild Distress, Pallor Eyes: Yes: Conjunctiva Clear HENT: Yes: Atraumatic Neck: Yes: Trachea Midline Cardiovascular: Yes: Tachycardia, Pulse Irregular Respiratory: Yes: Regular, Diminished, Rhonchi Gastrointestinal: Yes: Soft, Other (NG tube in place) Edema: No Labs: CBC, BMP 08/25/18 06:00 08/25/18 06:00 INR, PTT INR 1.29 (0.83-1.09) H 07/29/18 05:15 Assessment/Plan 62 year old gentleman with hx of CVA, Dementia, Hx of ETOH abuse, HLD who presented with AMS, Fevers and poor oral intake with encephlopathy/MRSA PNA/ Persistent fevers and Hypernatremia. #Hypernatremia ...Normal now. #AMS/Encephlopathy #Fevers #MRSA PNA #Dementia with hx of CVA Serum Na now improved. Continue free water with NGT PRN Lasix as needed for congestion. Will monitor the Renal functions with you. Thanks again. Sarai Gusman MD
[2018-08-25] MEDS: DEXTROSE 5%-WATER - 1,000 ML IV SCH (14:33)
--- NOTE | 2018-08-25 15:03 | PN ---
Progress Note, Physician History of Present Illness: No new events. Pt afebrile, without distress. - Current Medication List Current Medications: Active Medications Acetaminophen (Tylenol Suppository -) 650 mg AR Q6H PRN PRN Reason: FEVER Last Admin: 08/22/18 19:55 Dose: 650 mg Ascorbic Acid (Vitamin C -) 500 mg GT DAILY [facility] Last Admin: 08/25/18 09:51 Dose: 500 mg Aspirin (Asa -) 81 mg PO DAILY [facility] Last Admin: 08/25/18 09:51 Dose: 81 mg Collagenase (Santyl -) 1 applic TP DAILY [facility]; Protocol Last Admin: 08/25/18 09:51 Dose: 1 applic Donepezil HCl (Aricept -) 10 mg GT HS [facility] Last Admin: 08/24/18 22:45 Dose: 10 mg Doxycycline Hyclate (Vibramycin -) 100 mg PO BID@1000,1800 [facility] Last Admin: 08/25/18 09:50 Dose: 100 mg Heparin Sodium (Porcine) (Heparin -) 5,000 unit SQ TID [facility] Last Admin: 08/25/18 14:12 Dose: 5,000 unit Dextrose (D5w -) 1,000 mls @ 84 mls/hr IV ASDIR [facility] Last Admin: 08/24/18 22:46 Dose: 84 mls/hr Insulin Aspart (Novolog Vial Sliding Scale -) 1 vial SQ ACHS [facility]; Protocol Last Admin: 08/25/18 11:40 Dose: Not Given Loratadine (Claritin -) 10 mg PO DAILY [facility] Last Admin: 08/25/18 09:51 Dose: 10 mg Scopolamine HBr (Transderm-Scop -) 1 patch TD Q72H [facility] Last Admin: 08/23/18 14:44 Dose: 1 patch Thiamine HCl (Vitamin B1 -) 100 mg PO HS [facility] Last Admin: 08/24/18 22:46 Dose: 100 mg Valproate Sodium (Depakene -) 250 mg GT BID [facility] Last Admin: 08/25/18 09:50 Dose: 250 mg Zinc Sulfate (Orazinc -) 220 mg GT DAILY@0800 [facility] Last Admin: 08/25/18 07:49 Dose: 220 mg - Objective Vital Signs: Vital Signs Temperature 98.7 F 08/25/18 10:00 Pulse Rate 88 08/25/18 10:00 Respiratory Rate 22 H 08/25/18 10:00 Blood Pressure 132/98 08/25/18 10:00 O2 Sat by Pulse Oximetry (%) 100 08/25/18 09:00 Constitutional: Yes: No Distress Cardiovascular: Yes: Regular Rate and Rhythm Respiratory: Yes: Regular Gastrointestinal: Yes: Normal Bowel Sounds, Soft Integumentary: Yes: WNL Labs: CBC, BMP 08/25/18 06:00 08/25/18 06:00 INR, PTT INR 1.29 (0.83-1.09) H 07/29/18 05:15 Microbiology 08/19/18 17:00 Cerebral Spinal Fluid - Lumbar Puncture Gram Stain - Final 08/19/18 17:00 Cerebral Spinal Fluid - Lumbar Puncture CSF Culture - Final NO GROWTH AFTER 48 HOURS INCUBATION 08/13/18 11:30 Blood - Peripheral Venous Blood Culture - Final NO GROWTH AFTER 5 DAYS INCUBATION 08/13/18 11:18 Blood - Peripheral Venous Blood Culture - Final NO GROWTH AFTER 5 DAYS INCUBATION 08/12/18 13:36 Blood - Peripheral Venous Blood Culture - Final NO GROWTH AFTER 5 DAYS INCUBATION 08/12/18 13:30 Blood - Peripheral Venous Blood Culture - Final NO GROWTH AFTER 5 DAYS INCUBATION 08/10/18 15:00 Blood - Peripheral Venous Blood Culture - Final NO GROWTH AFTER 5 DAYS INCUBATION 08/13/18 21:30 Urine - Urine Clean Catch Urine Culture - Final NO GROWTH OBTAINED 08/09/18 13:55 Blood - Peripheral Venous Blood Culture - Final NO GROWTH AFTER 5 DAYS INCUBATION 08/10/18 16:30 Urine - Urine - Catheterized Urine Culture - Final NO GROWTH OBTAINED 07/30/18 16:30 Sputum - Oropharynx Suctioned Sputum Gram Stain - Final 07/30/18 16:30 Sputum - Oropharynx Suctioned Sputum Sputum Culture - Final Mr S Aureus Yeast Like Organism 07/28/18 15:36 Blood - Peripheral Venous Blood Culture - Final NO GROWTH AFTER 5 DAYS INCUBATION 07/28/18 15:25 Blood - Peripheral Venous Blood Culture - Final NO GROWTH AFTER 5 DAYS INCUBATION 07/28/18 15:50 Urine - Urine - Catheterized Urine Culture - Final NO GROWTH OBTAINED Problem List - Problems (1) PNA (pneumonia) Code(s): J18.9 - PNEUMONIA, UNSPECIFIED ORGANISM Assessment/Plan PNA - Aspiration and MRSA Alzheimers dementia Schizophrenia Fever r/o seizure d.o. -- Pt afebrile, leukocytosis -- Continue Doxycycline supportive care
[2018-08-25 15:33] LABS: ANISOCYTOSIS 1+; MACROCYTOSIS 0; OVALOCYTE 1+; PLATELET ESTIMATE NORMAL
[2018-08-25] MEDS: THIAMINE HCL 100 MG TABLET (FP) PO SCH (22:57)
[2018-08-25] MEDS: DONEPEZIL HCL 10 MG TABLET (FP) GT SCH (22:57)
[2018-08-26] MEDS: DEXTROSE 5%-WATER - 1,000 ML IV SCH ×2 (04:06→16:35)
[2018-08-26] MEDS: HEPARIN NA (PORCINE) 5,000 UNITS/ML 1ML VIAL SQ SCH (06:35)
[2018-08-26] MEDS: INSULIN SLIDING SCALE (NOVOLOG) 1 VIAL SQ SCH ×4 (06:37→22:52)
[2018-08-26 07:08] LABS: BASO % 0.5 % (0-2.0); HEMATOCRIT 31.9 % (35.4-49); HEMOGLOBIN 10.7 GM/dL (11.7-16.9); LYMPH % 10.6 % (8-40); MCH 31.5 pg (25.7-33.7); MCHC 33.7 g/dl (32.0-35.9); MEAN CELL VOLUME 93.4 fl (80-96); MEAN PLT VOLUME 10.1 fl (7.5-11.1); MONO % 5.5 % (3.8-10.2); NEUT % 82.4 % (42.8-82.8); PLATELET COUNT 292 K/MM3 (134-434); RBC 3.41 M/mm3 (4.00-5.60); RDW 17.9 % (11.9-15.9); WHITE BLOOD COUNT 12.3 K/mm3 (4.0-10.0)
[2018-08-26 07:32] LABS: ANION GAP 4 MMOL/L (8-16); BLOOD UREA NITROGEN 9 mg/dL (7-18); CALCIUM 8.5 mg/dL (8.5-10.1); CHLORIDE 103 mmol/L (98-107); CO2 34 mmol/L (21-32); CREATININE 0.5 mg/dL (0.55-1.3); GLUCOSE,RANDOM 114 mg/dL (74-106); POTASSIUM 3.7 mmol/L (3.5-5.1); SODIUM 141 mmol/L (136-145)
[2018-08-26] MEDS ORDERED: PT OWN MED DRAWER 7, Y5N ONE ×2 (10:13→17:33)
[2018-08-26] MEDS: ASPIRIN 81 MG CHEWABLE TABLETS PO SCH (10:15)
[2018-08-26] MEDS: VALPROATE SODIUM 250 MG/5 ML UNIT DOSE CUP GT SCH ×2 (10:15→22:52)
[2018-08-26] MEDS: ASCORBIC ACID 500 MG TABLET (FP) GT SCH (10:15)
[2018-08-26] MEDS: ZINC SULFATE 220 MG CAPSULE (FP) GT SCH (10:15)
[2018-08-26] MEDS: DOXYCYCLINE HYCLATE 100 MG CAPSULE PO SCH ×2 (10:16→17:34)
[2018-08-26] MEDS: LORATADINE 10 MG TABLET PO SCH (10:16)
[2018-08-26 10:29] LABS: ANISOCYTOSIS 1+; MACROCYTOSIS 0; PLATELET ESTIMATE NORMAL
[2018-08-26] MEDS: COLLAGENASE CLOSTRIDIUM HIST. 30 GRAMS TUBE TP SCH (10:36)
[2018-08-26] MEDS: SCOPOLAMINE HYDROBROMIDE 1 PATCH PATCH.TD72 TD SCH (11:59)
--- NOTE | 2018-08-26 12:33 | PN ---
Physical Exam: SUBJECTIVE: Patient seen and examined. He appears comfortable. He is non-verbal. OBJECTIVE: Vital Signs Period Temp Pulse Resp BP Sys/Cortes Pulse Ox Last 24 Hr 97.2 F-99.3 F 81-92 18-22 102-127/59-74 100 GENERAL: The patient is awake, alert, non-verbal, in no acute distress. LUNGS: Breath sounds equal, clear to auscultation bilaterally, no wheezes, no crackles, no accessory muscle use. HEART: Regular rate and rhythm, S1, S2 without murmur, rub or gallop. ABDOMEN: Soft, nondistended, normoactive bowel sounds, no guarding, no rebound, no hepatosplenomegaly, no masses. EXTREMITIES: 2+ pulses, warm, well-perfused, no edema. Laboratory Results - last 24 hr 08/25/18 08/25/18 08/25/18 06:00 16:51 23:14 WBC RBC Hgb Hct MCV MCH MCHC RDW Plt Count MPV Absolute Neuts (auto) Neutrophils % Neutrophils % (Manual) 85.5 H D Band Neutrophils % 0.0 Lymphocytes % Lymphocytes % (Manual) 8.9 D Monocytes % Monocytes % (Manual) 6 D Eosinophils % Eosinophils % (Manual) 0.0 D Basophils % Basophils % (Manual) 0.0 Myelocytes % (Man) 0 D Promyelocytes % (Man) 0 Blast Cells % (Manual) 0 Nucleated RBC % 0 Metamyelocytes 0 D Hypochromia 0 Platelet Estimate Normal Polychromasia 0 Poikilocytosis 1+ Anisocytosis 1+ Microcytosis 0 Macrocytosis 0 Ovalocytes 1+ [place] Cells 2+ Sodium Potassium Chloride Carbon Dioxide Anion Gap BUN Creatinine Creat Clearance w eGFR POC Glucometer 116 126 Random Glucose Calcium 08/26/18 08/26/18 08/26/18 06:00 06:00 06:36 WBC 12.3 H RBC 3.41 L Hgb 10.7 L Hct 31.9 L MCV 93.4 MCH 31.5 MCHC 33.7 RDW 17.9 H Plt Count 292 D MPV 10.1 Absolute Neuts (auto) 10.1 H Neutrophils % 82.4 Neutrophils % (Manual) 79.3 Band Neutrophils % 2.5 Lymphocytes % 10.6 Lymphocytes % (Manual) 10.8 D Monocytes % 5.5 Monocytes % (Manual) 3 L Eosinophils % 1.0 Eosinophils % (Manual) 2.5 D Basophils % 0.5 Basophils % (Manual) 0.0 Myelocytes % (Man) 2 D Promyelocytes % (Man) 0 Blast Cells % (Manual) 0 Nucleated RBC % 0 Metamyelocytes 0 Hypochromia 0 Platelet Estimate Normal Polychromasia 1+ Poikilocytosis 1+ Anisocytosis 1+ Microcytosis 1+ Macrocytosis 0 Ovalocytes [place] Cells Sodium 141 Potassium 3.7 Chloride 103 Carbon Dioxide 34 H Anion Gap 4 L BUN 9 Creatinine 0.5 L Creat Clearance w eGFR > 60 POC Glucometer 133 Random Glucose 114 H Calcium 8.5 08/26/18 11:55 WBC RBC Hgb Hct MCV MCH MCHC RDW Plt Count MPV Absolute Neuts (auto) Neutrophils % Neutrophils % (Manual) Band Neutrophils % Lymphocytes % Lymphocytes % (Manual) Monocytes % Monocytes % (Manual) Eosinophils % Eosinophils % (Manual) Basophils % Basophils % (Manual) Myelocytes % (Man) Promyelocytes % (Man) Blast Cells % (Manual) Nucleated RBC % Metamyelocytes Hypochromia Platelet Estimate Polychromasia Poikilocytosis Anisocytosis Microcytosis Macrocytosis Ovalocytes [place] Cells Sodium Potassium Chloride Carbon Dioxide Anion Gap BUN Creatinine Creat Clearance w eGFR POC Glucometer 117 Random Glucose Calcium Active Medications Generic Name Dose Route Start Last Admin Trade Name Reginoq PRN Reason Stop Dose Admin Acetaminophen 650 mg 08/19/18 21:45 08/22/18 19:55 Tylenol Suppository - NE 650 mg Q6H PRN Administration FEVER Ascorbic Acid 500 mg 08/18/18 14:59 08/26/18 10:15 Vitamin C - GT 500 mg DAILY [facility] Administration Aspirin 81 mg 08/01/18 10:00 08/26/18 10:15 Asa - PO 81 mg DAILY [facility] Administration Collagenase 1 applic 08/16/18 12:15 08/25/18 09:51 Santyl - TP 1 applic DAILY [facility] Administration Protocol Donepezil HCl 10 mg 08/18/18 14:59 08/25/18 22:57 Aricept - GT 10 mg HS [facility] Administration Doxycycline Hyclate 100 mg 08/21/18 18:00 08/26/18 10:16 Vibramycin - PO 100 mg BID@1000,1800 [facility] Administration Heparin Sodium (Porcine) 5,000 unit 08/08/18 14:00 08/26/18 06:35 Heparin - SQ 5,000 unit TID [facility] Administration Dextrose 1,000 mls @ 84 mls/hr 08/22/18 13:38 08/26/18 04:06 D5w - IV 84 mls/hr ASDIR [facility] Administration Insulin Aspart 1 vial 08/13/18 11:00 08/26/18 11:57 Novolog Vial Sliding Scale - SQ Not Given ACHS [facility] Protocol Loratadine 10 mg 08/22/18 13:45 08/26/18 10:16 Claritin - PO 10 mg DAILY [facility] Administration Scopolamine HBr 1 patch 08/23/18 12:00 08/26/18 11:59 Transderm-Scop - TD 1 patch Q72H [facility] Administration Thiamine HCl 100 mg 08/07/18 22:00 08/25/18 22:57 Vitamin B1 - PO 100 mg HS [facility] Administration Valproate Sodium 250 mg 08/18/18 22:00 08/26/18 10:15 Depakene - GT 250 mg BID [facility] Administration Zinc Sulfate 220 mg 08/18/18 15:00 08/26/18 10:15 Orazinc - GT 220 mg DAILY@0800 [facility] Administration ASSESSMENT/PLAN: This is a 62 year old man with a history of dementia, alcohol abuse, CVAs, hyperlipidemia who presented to the ED with poor oral intake and change in mental status. 1. Acute toxic metabolic encephalopathy 2. Dementia - Continue Aricept 3. Schizophrenia 4. Dysphagia - Plan for PEG - will discuss with IR - Hold aspirin 5. Hypernatremia - Improved 6. Hypokalemia - Improved 7. Pneumonia, aspiration with MRSA - Continue Doxycycline 8. Seizure disorder - Continue Depakene 9. History of CVA - Hold aspirin in preparation for PEG placement 10. Hyperlipidemia 11. History of alcohol abuse Visit type - Emergency Visit Emergency Visit: Yes ED Registration Date: 07/28/18 Care time: The patient presented to the Emergency Department on the above date and was hospitalized for further evaluation of their emergent condition. - New Patient This patient is new to me today: Yes Date on this admission: 08/26/18 - Critical Care Critical Care patient: No - Discharge Referral Referred to [facility] Med P.C.: No
--- NOTE | 2018-08-26 13:21 | PN ---
Progress Note, Physician Chief Complaint: patient stable awake and alert ng tube in place - Current Medication List Current Medications: Active Medications Acetaminophen (Tylenol Suppository -) 650 mg [place] Q6H PRN PRN Reason: FEVER Last Admin: 08/22/18 19:55 Dose: 650 mg Ascorbic Acid (Vitamin C -) 500 mg GT DAILY [facility] Last Admin: 08/26/18 10:15 Dose: 500 mg Aspirin (Asa -) 81 mg PO DAILY [facility] Last Admin: 08/26/18 10:15 Dose: 81 mg Collagenase (Santyl -) 1 applic TP DAILY [facility]; Protocol Last Admin: 08/25/18 09:51 Dose: 1 applic Donepezil HCl (Aricept -) 10 mg GT HS [facility] Last Admin: 08/25/18 22:57 Dose: 10 mg Doxycycline Hyclate (Vibramycin -) 100 mg PO BID@1000,1800 [facility] Last Admin: 08/26/18 10:16 Dose: 100 mg Heparin Sodium (Porcine) (Heparin -) 5,000 unit SQ TID [facility] Last Admin: 08/26/18 06:35 Dose: 5,000 unit Dextrose (D5w -) 1,000 mls @ 84 mls/hr IV ASDIR [facility] Last Admin: 08/26/18 04:06 Dose: 84 mls/hr Insulin Aspart (Novolog Vial Sliding Scale -) 1 vial SQ ACHS [facility]; Protocol Last Admin: 08/26/18 11:57 Dose: Not Given Loratadine (Claritin -) 10 mg PO DAILY [facility] Last Admin: 08/26/18 10:16 Dose: 10 mg Scopolamine HBr (Transderm-Scop -) 1 patch TD Q72H [facility] Last Admin: 08/26/18 11:59 Dose: 1 patch Thiamine HCl (Vitamin B1 -) 100 mg PO HS [facility] Last Admin: 08/25/18 22:57 Dose: 100 mg Valproate Sodium (Depakene -) 250 mg GT BID [facility] Last Admin: 08/26/18 10:15 Dose: 250 mg Zinc Sulfate (Orazinc -) 220 mg GT DAILY@0800 [facility] Last Admin: 08/26/18 10:15 Dose: 220 mg - Objective Vital Signs: Vital Signs Temperature 98.6 F 08/26/18 09:30 Pulse Rate 84 08/26/18 09:30 Respiratory Rate 19 08/26/18 09:30 Blood Pressure 124/74 08/26/18 09:30 O2 Sat by Pulse Oximetry (%) 100 08/25/18 21:00 Constitutional: Yes: No Distress, Calm Cardiovascular: Yes: S1, S2 Respiratory: Yes: Regular, Poor Air Entry Gastrointestinal: Yes: Normal Bowel Sounds, Soft, Other (ng in place) Musculoskeletal: Yes: WNL Extremities: Yes: Other Neurological: Yes: Alert, Other Labs: CBC, BMP 08/26/18 06:00 08/26/18 06:00 INR, PTT INR 1.29 (0.83-1.09) H 07/29/18 05:15 Assessment/Plan also now patient is coughing and producing sputum Altered Mental Status r/o Neuroleptic Malignant Syndrome r/o Seizures Seizure Disorder h/o CVA Schizophrenia Alzheimer's Dementia drug reaction mrsa pneumonia plan continue oral abx plan for peg tube nutrition rest as per the team
--- NOTE | 2018-08-26 14:29 | CON.GI ---
Consult Consult Specialty:: GI Referred by:: Medicine Reason for Consultation:: PEG - History of Present Illness History of Present Illness: 62M with h/o CVA, dementia, ETOH, HL, admitted with fevers, found to have pneumonia and hypernatremia. Hospital course c/b inability to tolerate PO, now receiving NGT feeds. Per RN, feeds are at goal. GI asked to consult regarding PEG tube. No prior abdominal surgeries. Patient is very contracted but can get patient to lie supine and access the abdomen. - History Source History Provided By: Family Member, Medical Record - Past Medical History TWISTER HAND: Yes: CVA, Dementia Cardio/Vascular: Yes: Hyperlipdemia Gastrointestinal: Yes: Other (poor po intake) - Alcohol/Substance Use Hx Alcohol Use: No - Smoking History Smoking history: Never smoked Have you smoked in the past 12 months: No Home Medications - Allergies Allergies/Adverse Reactions: Allergies Allergy/AdvReac Type Severity Reaction Status Date / Time No Known Allergies Allergy Verified 07/28/18 14:24 - Home Medications Home Medications: Ambulatory Orders Ascorbic Acid [C-500] 500 mg PO DAILY 07/28/18 Aspirin [ASA -] 81 mg PO DAILY 07/28/18 Atorvastatin Calcium [Lipitor] 10 mg PO HS 07/28/18 Divalproex Sodium 250 mg PO BID 07/28/18 Donepezil HCl 10 mg PO DAILY 07/28/18 Haloperidol 2.5 mg PO BID 07/28/18 Haloperidol Decanoate [Haloperidol Decanoate 100] 100 mg IM MONTHLY 07/28/18 Quetiapine Fumarate [Quetiapine Fumarate ER] 300 mg PO HS 07/28/18 Zinc Sulfate 220 mg PO DAILY 07/28/18 Review of Systems Unable to obtain ROS, reason: dementia Physical Exam-GI Vital Signs: Vital Signs Temperature 98.6 F 08/26/18 09:30 Pulse Rate 84 08/26/18 09:30 Respiratory Rate 19 08/26/18 09:30 Blood Pressure 124/74 08/26/18 09:30 O2 Sat by Pulse Oximetry (%) 100 08/25/18 21:00 Constitutional: Yes: No Distress, Calm Cardiovascular: Yes: Regular Rate and Rhythm Respiratory: Yes: CTA Bilaterally ...Palpate: Yes: Soft. No: Tenderness ...Rectal Exam: Yes: Deferred Neurological: Yes: Alert. No: Oriented Labs: CBC, BMP 08/26/18 06:00 08/26/18 06:00 INR, PTT INR 1.29 (0.83-1.09) H 07/29/18 05:15 Assessment/Plan Pt unable to tolerate PO. PEG is appropriate. WBC has been stable and patient has been afebrile. Discussed at bedside with sister/surrogate Bonnie Alejandre, her cell is . She consents to PEG. Discussed R/B/L/A at length including bleeding, infection, missed lesions, perforation requiring surgery. Will tentatively plan for PEG tomorrow (Sunday) Hold SQH in am Will discuss with ID need for any additional periprocedural antibiotic coverage
[2018-08-26] MEDS: THIAMINE HCL 100 MG TABLET (FP) PO SCH (22:52)
[2018-08-26] MEDS: DONEPEZIL HCL 10 MG TABLET (FP) GT SCH (22:53)
[2018-08-27] MEDS: ACETAMINOPHEN 650 MG SUPP.RECT PR PRN ×3 (01:23→15:30)
[2018-08-27] MEDS: DEXTROSE 5%-WATER - 1,000 ML IV SCH (05:15)
[2018-08-27] MEDS: INSULIN SLIDING SCALE (NOVOLOG) 1 VIAL SQ SCH ×4 (06:02→23:25)
[2018-08-27] MEDS: ZINC SULFATE 220 MG CAPSULE (FP) GT SCH ×2 (08:22→17:15)
[2018-08-27] MEDS ORDERED: PT OWN MED DRAWER 7, Y5N ONE ×2 (09:50→17:13)
[2018-08-27] MEDS: LORATADINE 10 MG TABLET PO SCH (09:53)
[2018-08-27] MEDS: VALPROATE SODIUM 250 MG/5 ML UNIT DOSE CUP GT SCH ×2 (09:53→23:26)
[2018-08-27] MEDS: ASCORBIC ACID 500 MG TABLET (FP) GT SCH (09:53)
[2018-08-27] MEDS: DOXYCYCLINE HYCLATE 100 MG CAPSULE PO SCH ×2 (09:54→17:15)
--- NOTE | 2018-08-27 10:16 | PN ---
Physical Exam: SUBJECTIVE: Patient seen and examined at the bedside. still having fevers non verbal at baseline, but mumbles a few words OBJECTIVE: chest xray now echo pending Vital Signs Period Temp Pulse Resp BP Sys/Cortes Pulse Ox Last 24 Hr 97.9 F-101.3 F 80-125 18-20 92-133/48-72 96 GENERAL: lethargic, opens eyes intermittently. mumbles a few words HEAD: Normal with no signs of trauma. has increased temporal wasting. EYES: PERRL, extraocular movements intact, sclera anicteric, conjunctiva clear. No ptosis. ENT: Ears normal, nares patent, oropharynx clear without exudates, moist mucous membranes - ngt feeds NECK: Trachea midline, full range of motion, supple. LUNGS: congested bilaterally will xray. HEART: Regular rate and rhythm ABDOMEN: Soft, nontender, nondistended, normoactive bowel sounds EXTREMITIES: no edema. right hip with evidence of deep tissue injury, left hip with large 6cm x 8cm pressure ulcer unstageable. unstegeable left heal pressure ulcer. NEUROLOGICAL: lethargic Laboratory Results - last 24 hr 08/26/18 08/26/18 08/26/18 06:00 11:55 17:31 Neutrophils % (Manual) 79.3 Band Neutrophils % 2.5 Lymphocytes % (Manual) 10.8 D Monocytes % (Manual) 3 L Eosinophils % (Manual) 2.5 D Basophils % (Manual) 0.0 Myelocytes % (Man) 2 D Promyelocytes % (Man) 0 Blast Cells % (Manual) 0 Metamyelocytes 0 Hypochromia 0 Platelet Estimate Normal Polychromasia 1+ Poikilocytosis 1+ Anisocytosis 1+ Microcytosis 1+ Macrocytosis 0 POC Glucometer 117 138 08/26/18 08/27/18 22:51 06:00 Neutrophils % (Manual) Band Neutrophils % Lymphocytes % (Manual) Monocytes % (Manual) Eosinophils % (Manual) Basophils % (Manual) Myelocytes % (Man) Promyelocytes % (Man) Blast Cells % (Manual) Metamyelocytes Hypochromia Platelet Estimate Polychromasia Poikilocytosis Anisocytosis Microcytosis Macrocytosis POC Glucometer 101 159 Active Medications Generic Name Dose Route Start Last Admin Trade Name Freq PRN Reason Stop Dose Admin Acetaminophen 650 mg 08/19/18 21:45 08/27/18 09:05 Tylenol Suppository - [place] 650 mg Q6H PRN Administration FEVER Ascorbic Acid 500 mg 08/18/18 14:59 08/27/18 09:53 Vitamin C - GT 500 mg DAILY [facility] Administration Aspirin 81 mg 08/01/18 10:00 08/26/18 10:15 Asa - PO 81 mg DAILY [facility] Administration Collagenase 1 applic 08/16/18 12:15 08/26/18 10:36 Santyl - TP 1 applic DAILY [facility] Administration Protocol Donepezil HCl 10 mg 08/18/18 14:59 08/26/18 22:53 Aricept - GT 10 mg HS [facility] Administration Doxycycline Hyclate 100 mg 08/21/18 18:00 08/27/18 09:54 Vibramycin - PO 100 mg BID@1000,1800 [facility] Administration Insulin Aspart 1 vial 08/13/18 11:00 08/27/18 06:02 Novolog Vial Sliding Scale - SQ Not Given ACHS [facility] Protocol Loratadine 10 mg 08/22/18 13:45 08/27/18 09:53 Claritin - PO 10 mg DAILY [facility] Administration Scopolamine HBr 1 patch 08/23/18 12:00 08/26/18 11:59 Transderm-Scop - TD 1 patch Q72H [facility] Administration Thiamine HCl 100 mg 08/07/18 22:00 08/26/18 22:52 Vitamin B1 - PO 100 mg HS [facility] Administration Valproate Sodium 250 mg 08/18/18 22:00 08/27/18 09:53 Depakene - GT 250 mg BID [facility] Administration Zinc Sulfate 220 mg 08/18/18 15:00 08/27/18 08:22 Orazinc - GT Not Given DAILY@0800 [facility] ASSESSMENT/PLAN: Patient is a 62 year old male with history of dementia, prior alcohol abuse, CVA 's, and hyperlipidemia. He presented to the ED with an altered mental status, poor oral intake of oral foods and fluids. Patient was reportedly on haldol and seroquel and has been more lethargic with increased muscle rigidity from [place]. ID: Acute metabolic encephalopathy. Neuroleptic malignant syndrome/fevers Advanced dementia mental status waxes and wanes. At times alert, at times lethargic. continues to spike fevers blood and urine cultures negative. vascular duplex negative for dvt, chest ct/abd/pelvis negative for acute process and does not explain the fevers. He does have pneumonia and has been treated with vanco and zosyn Discussed with ID, re-start Zosyn Neuro follow up appreciated Fevers, persistent Fevers of unknown origin Patient under treatment for mrsa pneumonia but fevers persisted. ID stopped vanco with close monitoring. Was afebrile for 3 days, now fevers returned. Per ID, start Zosyn antibiotics. Mrsa pneumonia Blood cultures negative, +mrsa on sputum, on vancomycin, zosyn discontinued. Vascular Large unstageable left hip wound Large left heel wound On Santyl Vascular consulted Neuro: Seizure Disorder h/o CVA Schizophrenia Alzheimer's Dementia Shingles history On ASA 81mg On Valproate 250mg IV BID, Donepezil 10mg PO hs. neuro to re evaluate with LP GI elevated ast/alt, resolved fen monitor electrolytes ngt feeds with vital 1.2 with uptitrate as tolerated full code. Visit type - Emergency Visit Emergency Visit: Yes ED Registration Date: 07/28/18 Care time: The patient presented to the Emergency Department on the above date and was hospitalized for further evaluation of their emergent condition. - New Patient This patient is new to me today: No - Critical Care Critical Care patient: No - Discharge Referral Referred to [facility] Med P.C.: No
--- NOTE | 2018-08-27 11:30 | PN ---
Progress Note (short form) - Note Progress Note: Temp 102.3 reported by nurse. PEG cancelled for today
--- NOTE | 2018-08-27 13:02 | PN ---
Progress Note, Physician - Current Medication List Current Medications: Active Medications Acetaminophen (Tylenol Suppository -) 650 mg [place] Q6H PRN PRN Reason: FEVER Last Admin: 08/27/18 09:05 Dose: 650 mg Ascorbic Acid (Vitamin C -) 500 mg GT DAILY [facility] Last Admin: 08/27/18 09:53 Dose: 500 mg Aspirin (Asa -) 81 mg PO DAILY [facility] Last Admin: 08/26/18 10:15 Dose: 81 mg Collagenase (Santyl -) 1 applic TP DAILY [facility]; Protocol Last Admin: 08/26/18 10:36 Dose: 1 applic Donepezil HCl (Aricept -) 10 mg GT HS [facility] Last Admin: 08/26/18 22:53 Dose: 10 mg Doxycycline Hyclate (Vibramycin -) 100 mg PO BID@1000,1800 [facility] Last Admin: 08/27/18 09:54 Dose: 100 mg Insulin Aspart (Novolog Vial Sliding Scale -) 1 vial SQ ACHS [facility]; Protocol Last Admin: 08/27/18 11:27 Dose: Not Given Loratadine (Claritin -) 10 mg PO DAILY [facility] Last Admin: 08/27/18 09:53 Dose: 10 mg Scopolamine HBr (Transderm-Scop -) 1 patch TD Q72H [facility] Last Admin: 08/26/18 11:59 Dose: 1 patch Thiamine HCl (Vitamin B1 -) 100 mg PO [facility] Last Admin: 08/26/18 22:52 Dose: 100 mg Valproate Sodium (Depakene -) 250 mg GT BID [facility] Last Admin: 08/27/18 09:53 Dose: 250 mg Zinc Sulfate (Orazinc -) 220 mg GT DAILY@0800 [facility] Last Admin: 08/27/18 08:22 Dose: Not Given - Objective Vital Signs: Vital Signs Temperature 102.5 F H 08/27/18 10:00 Pulse Rate 116 H 08/27/18 10:00 Respiratory Rate 18 08/27/18 10:00 Blood Pressure 154/96 08/27/18 10:00 O2 Sat by Pulse Oximetry (%) 96 08/26/18 21:00 Labs: CBC, BMP 08/26/18 06:00 08/26/18 06:00 INR, PTT INR 1.29 (0.83-1.09) H 07/29/18 05:15
[2018-08-27] MEDS ORDERED: FUROSEMIDE 40 MG/4 ML INJECTABLE VIAL IVPUSH ONE (14:30)
[2018-08-27] MEDS: COLLAGENASE CLOSTRIDIUM HIST. 30 GRAMS TUBE TP SCH (15:12)
[2018-08-27] MEDS ORDERED: PIPERACILLIN/TAZOB 3.375 GM 3.375 GM in DEXTROSE 5%-WATER - 50 ML IVPB SCH (16:00)
[2018-08-27] MEDS ORDERED: PIPERACILLIN/TAZOBACTAM 3.375 GM VIAL IVPB ONE (17:13)
[2018-08-27] MEDS ORDERED: DEXTROSE 5%-WATER - 50 ML IVPB ONE (17:14)
[2018-08-27] MEDS: PIPERACILLIN/TAZOB 3.375 GM 3.375 GM in DEXTROSE 5%-WATER - 50 ML IVPB SCH (17:15)
[2018-08-27] MEDS ORDERED: SODIUM CHLORIDE 500 ML IV STA (17:49)
[2018-08-27] MEDS ORDERED: SODIUM CHLORIDE 1,000 ML IV SCH (18:00)
[2018-08-27] MEDS: SODIUM CHLORIDE 1,000 ML IV SCH (21:53)
[2018-08-27] MEDS: THIAMINE HCL 100 MG TABLET (FP) PO SCH (23:26)
[2018-08-27] MEDS: DONEPEZIL HCL 10 MG TABLET (FP) GT SCH (23:26)
[2018-08-28] MEDS ORDERED: DEXTROSE 5%-WATER - 50 ML IVPB ONE ×3 (02:40→17:00)
[2018-08-28] MEDS ORDERED: PIPERACILLIN/TAZOBACTAM 3.375 GM VIAL IVPB ONE ×3 (02:40→16:59)
[2018-08-28] MEDS: PIPERACILLIN/TAZOB 3.375 GM 3.375 GM in DEXTROSE 5%-WATER - 50 ML IVPB SCH ×3 (02:50→17:13)
[2018-08-28] MEDS: ACETAMINOPHEN 650 MG SUPP.RECT PR PRN ×3 (02:51→18:33)
[2018-08-28] MEDS: INSULIN SLIDING SCALE (NOVOLOG) 1 VIAL SQ SCH ×4 (06:18→22:41)
[2018-08-28] MEDS ORDERED: PT OWN MED DRAWER 7, Y5N ONE ×2 (08:37→18:14)
[2018-08-28] MEDS: ZINC SULFATE 220 MG CAPSULE (FP) GT SCH (08:39)
--- NOTE | 2018-08-28 08:52 | PN ---
Physical Exam: SUBJECTIVE: Patient seen and examined at the bedside. non verbal at baseline. answers "yes" in fijian when I ask him if he is feeling better. OBJECTIVE: vascular consult hypotensive overnight, back on ivf and antibiotics restart tube feeds peg once afebrile Vital Signs Period Temp Pulse Resp BP Sys/Cortes Pulse Ox Last 24 Hr 99.9 F-102.5 F 98-124 18-20 70-154/40-96 97-98 GENERAL: more awake, opens eyes intermittently. mumbles a few words HEAD: Normal with no signs of trauma. has increased temporal wasting. EYES: PERRL, extraocular movements intact, sclera anicteric, conjunctiva clear. No ptosis. ENT: Ears normal, nares patent, oropharynx clear without exudates, moist mucous membranes - ngt feeds NECK: Trachea midline, full range of motion, supple. LUNGS: congested bilaterally anterior, improved HEART: Regular rate and rhythm ABDOMEN: Soft, nontender, nondistended, normoactive bowel sounds - possible peg tube EXTREMITIES: no edema. right hip with evidence of deep tissue injury, left hip with large 6cm x 8cm pressure ulcer unstageable. unstegeable left heal pressure ulcer. NEUROLOGICAL: more awake and alert today, answering questions appropriately Laboratory Results - last 24 hr 08/28/18 06:17 POC Glucometer 115 Active Medications Generic Name Dose Route Start Last Admin Trade Name Freq PRN Reason Stop Dose Admin Acetaminophen 650 mg 08/19/18 21:45 08/28/18 02:51 Tylenol Suppository - [place] 650 mg Q6H PRN Administration FEVER Ascorbic Acid 500 mg 08/18/18 14:59 08/27/18 09:53 Vitamin C - GT 500 mg DAILY ART Administration Aspirin 81 mg 08/01/18 10:00 08/26/18 10:15 Asa - PO 81 mg DAILY ART Administration Collagenase 1 applic 08/27/18 15:55 Santyl - TP DAILY ART Protocol Donepezil HCl 10 mg 08/18/18 14:59 08/27/18 23:26 Aricept - GT 10 mg HS ART Administration Doxycycline Hyclate 100 mg 08/21/18 18:00 08/27/18 17:15 Vibramycin - PO 100 mg BID@1000,1800 ART Administration Piperacillin Sod/Tazobactam 50 mls @ 100 mls/hr 08/28/18 18:00 Sod 3.375 gm/ Dextrose IVPB Q8H-IV ART Protocol Piperacillin Sod/Tazobactam 50 mls @ 100 mls/hr 08/27/18 18:00 08/28/18 02:50 Sod 3.375 gm/ Dextrose IVPB 08/28/18 10:29 100 mls/hr Q8H-IV ART Administration Protocol Sodium Chloride 1,000 mls @ 10 mls/hr 08/27/18 21:30 08/27/18 21:53 Normal Saline - IV 10 mls/hr ASDIR ART Administration Insulin Aspart 1 vial 08/13/18 11:00 08/28/18 06:18 Novolog Vial Sliding Scale - SQ Not Given ACHS ART Protocol Loratadine 10 mg 08/22/18 13:45 08/27/18 09:53 Claritin - PO 10 mg DAILY ART Administration Scopolamine HBr 1 patch 08/23/18 12:00 08/26/18 11:59 Transderm-Scop - TD 1 patch Q72H ART Administration Thiamine HCl 100 mg 08/07/18 22:00 08/27/18 23:26 Vitamin B1 - PO 100 mg HS ART Administration Valproate Sodium 250 mg 08/18/18 22:00 08/27/18 23:26 Depakene - GT 250 mg BID ART Administration Zinc Sulfate 220 mg 08/18/18 15:00 08/28/18 08:39 Orazinc - GT 220 mg DAILY@0800 ART Administration ASSESSMENT/PLAN: Patient is a 62 year old male with history of dementia, prior alcohol abuse, CVA 's, and hyperlipidemia. He presented to the ED with an altered mental status, poor oral intake of oral foods and fluids. Patient was reportedly on haldol and seroquel and has been more lethargic with increased muscle rigidity from GA. ID: Acute metabolic encephalopathy. Neuroleptic malignant syndrome/fevers Advanced dementia mental status waxes and wanes. At times alert, at times lethargic. continues to spike fevers blood and urine cultures negative. vascular duplex negative for dvt, chest ct/abd/pelvis negative for acute process and does not explain the fevers. He does have mrsa pneumonia and has been treated with vanco and zosyn, was afebrile x 3 days, but spiked fevers again yesterday and overnight. Restarted on Zosyn Neuro follow up appreciated ID following Fevers, persistent Fevers of unknown origin Patient under treatment for mrsa pneumonia but fevers persisted. ID stopped vanco with close monitoring. Was afebrile for 3 days, now fevers returned. Per ID, start Zosyn antibiotics. Mrsa pneumonia Blood cultures negative, +mrsa on sputum, on vancomycin, zosyn discontinued. Vascular Large unstageable left hip wound Large left heel wound On Santyl Vascular consulted Possible source of fevers? wound appears wet and discolored. Neuro: Seizure Disorder h/o CVA Schizophrenia Alzheimer's Dementia Shingles history On ASA 81mg On Valproate 250mg IV BID, Donepezil 10mg PO hs. GI elevated ast/alt, resolved fen monitor electrolytes ngt feeds with vital 1.2 with uptitrate as tolerated full code. Visit type - Emergency Visit Emergency Visit: Yes ED Registration Date: 07/28/18 Care time: The patient presented to the Emergency Department on the above date and was hospitalized for further evaluation of their emergent condition. - New Patient This patient is new to me today: No - Critical Care Critical Care patient: No - Discharge Referral Referred to [facility] Med [facility].C.: No
--- NOTE | 2018-08-28 10:17 | PN ---
Progress Note (short form) - Note Progress Note: Pt still febrile, restarted on zosyn yesterday. Also hypotensive yesterday evening/overnight though had been npo and also given dose of lasix. PEG therefore deferred for now. Please check cbc, bmp, pt/inr. Will continue to reassess and determine timing of EGD/PEG accordingly.
[2018-08-28] MEDS: VALPROATE SODIUM 250 MG/5 ML UNIT DOSE CUP GT SCH ×2 (10:27→22:40)
[2018-08-28] MEDS: DOXYCYCLINE HYCLATE 100 MG CAPSULE PO SCH ×2 (10:27→18:14)
[2018-08-28] MEDS: LORATADINE 10 MG TABLET PO SCH (10:27)
[2018-08-28] MEDS: ASCORBIC ACID 500 MG TABLET (FP) GT SCH (10:27)
[2018-08-28 10:56] LABS: BASO % 0.3 % (0-2.0); EOS % 0.1 % (0-4.5); HEMATOCRIT 26.4 % (35.4-49); HEMOGLOBIN 9.1 GM/dL (11.7-16.9); LYMPH % 2.9 % (8-40); MCH 31.3 pg (25.7-33.7); MCHC 34.3 g/dl (32.0-35.9); MEAN CELL VOLUME 91.1 fl (80-96); MEAN PLT VOLUME 9.6 fl (7.5-11.1); MONO % 1.4 % (3.8-10.2); NEUT % 95.3 % (42.8-82.8); PLATELET COUNT 231 K/MM3 (134-434); RDW 18.5 % (11.9-15.9)
[2018-08-28 11:01] LABS: WHITE BLOOD COUNT 32.5 K/mm3 (4.0-10.0)
[2018-08-28] MEDS: COLLAGENASE CLOSTRIDIUM HIST. 30 GRAMS TUBE TP SCH (11:28)
[2018-08-28 11:30] LABS: ALBUMIN 2.2 g/dl (3.4-5.0); ALK PHOS 225 U/L (45-117); ANION GAP 8 MMOL/L (8-16); BILIRUBIN,TOTAL 0.5 mg/dL (0.2-1); BLOOD UREA NITROGEN 33 mg/dL (7-18); CALCIUM 7.9 mg/dL (8.5-10.1); CHLORIDE 107 mmol/L (98-107); CO2 28 mmol/L (21-32); CREATININE 1.3 mg/dL (0.55-1.3); GLUCOSE,RANDOM 98 mg/dL (74-106); MAGNESIUM 2.1 mg/dL (1.8-2.4); POTASSIUM 3.4 mmol/L (3.5-5.1); SGOT/AST 86 U/L (15-37); SGPT/ALT 95 U/L (13-61); SODIUM 143 mmol/L (136-145); TOT PROT 5.5 g/dl (6.4-8.2)
--- NOTE | 2018-08-28 11:32 | CONSULT ---
- Consultation REQUESTING PROVIDER: CONSULT REQUEST: We have been asked to surgically evaluate this patient for (L hip DTI). PCP:Mirtha Up NP HISTORY OF PRESENT ILLNESS: 62 y/o M, resident at [facility], w/ PMHx dementia, prior alcohol abuse, CVA's, and hyperlipidemia admitted 07/28 for ams and poor PO intake. Pt being treated for acute metabolic encephalopathy and mrsa pneumonia. Vascular consulted for L hip DTI. Pt unable to provide any information due to current medical state. PMHx: as above PSHx: unknown Home Medications Medication Instructions Recorded Ascorbic Acid [C-500] 500 mg PO DAILY 07/28/18 Aspirin [ASA -] 81 mg PO DAILY 07/28/18 Atorvastatin Calcium [Lipitor] 10 mg PO HS 07/28/18 Divalproex Sodium 250 mg PO BID 07/28/18 Donepezil HCl 10 mg PO DAILY 07/28/18 Haloperidol 2.5 mg PO BID 07/28/18 Haloperidol Decanoate [Haloperidol 100 mg IM MONTHLY 07/28/18 Decanoate 100] Quetiapine Fumarate [Quetiapine 300 mg PO HS 07/28/18 Fumarate ER] Zinc Sulfate 220 mg PO DAILY 07/28/18 Allergies Allergy/AdvReac Type Severity Reaction Status Date / Time No Known Allergies Allergy Verified 07/28/18 14:24 REVIEW OF SYSTEMS: unable to obtain PHYSICAL EXAM: GENERAL: Asleep, opens eyes to name, mumbles. In NAD HIP: L hip with large DTI approx 8.5x6cm, skin intact overlying. Some surrounding erythema. Sacrum: stage 1 ulcer sacrum, approx 5x5cm. R hip with small excoriation, approx .5x1cm. Ext: L heel with large eschar, half peeled off at time of exam. Remainder of eschar removed, small (approx .5x.5cm eschar remaining on medial heel) Remainder of heel intact with no open ulcer present. R heel with no ulcers present. Vital Signs Temperature 100.3 F H 08/28/18 06:00 Pulse Rate 100 H 08/28/18 06:00 Respiratory Rate 20 08/28/18 06:00 Blood Pressure 101/49 L 08/28/18 06:00 O2 Sat by Pulse Oximetry (%) 97 08/27/18 21:00 Lab Results WBC 32.5 K/mm3 (4.0-10.0) H* 08/28/18 10:50 RBC 2.90 M/mm3 (4.00-5.60) L 08/28/18 10:50 Hgb 9.1 GM/dL (11.7-16.9) L 08/28/18 10:50 Hct 26.4 % (35.4-49) L D 08/28/18 10:50 MCV 91.1 fl (80-96) 08/28/18 10:50 MCHC 34.3 g/dl (32.0-35.9) 08/28/18 10:50 RDW 18.5 % (11.9-15.9) H 08/28/18 10:50 Plt Count 231 K/MM3 (134-434) D 08/28/18 10:50 Sodium 143 mmol/L (136-145) 08/28/18 10:50 Potassium 3.4 mmol/L (3.5-5.1) L 08/28/18 10:50 Chloride 107 mmol/L (98-107) 08/28/18 10:50 Carbon Dioxide 28 mmol/L (21-32) 08/28/18 10:50 Anion Gap 8 MMOL/L (8-16) 08/28/18 10:50 BUN 33 mg/dL (7-18) H 08/28/18 10:50 Creatinine 1.3 mg/dL (0.55-1.3) 08/28/18 10:50 Random Glucose 98 mg/dL (74-106) 08/28/18 10:50 Calcium 7.9 mg/dL (8.5-10.1) L 08/28/18 10:50 INR 1.29 (0.83-1.09) H 07/29/18 05:15 A/P: 62 y/o M, resident at [facility], w/ PMHx dementia, prior alcohol abuse, CVA's, and hyperlipidemia admitted 07/28 for ams and poor PO intake. Pt being treated for acute metabolic encephalopathy and mrsa pneumonia. Vascular consulted for L hip DTI. Pt unable to provide any information due to current medical state. L Hip with large DTI, stage 1 sacral ulcer. -Bacitracin to L hip DTI -Reposition every two hours while in bed -Air mattress recommended -Use drawsheets and Trendelenburg when repositioning to reduce friction and shear -Manageincontinence via timely cleansing, use of appropriate incontinence disposables and use of barrier ointment to intact skin -Ensure adequate hydration/nutrition, supplementation per primary team -Ensure off-loading to all bony areas (heels, ankles, hips and tailbone) with Allevyn/Optifoam above d/w attending Dr Oseguera
[2018-08-28] MEDS ORDERED: BACITRACIN 15 GM TUBE TOPICAL OINTMENT TP ONE (12:00)
[2018-08-28 12:19] LABS: ANISOCYTOSIS 0; MACROCYTOSIS 0; PLATELET ESTIMATE NORMAL
--- NOTE | 2018-08-28 13:13 | PN ---
Progress Note, Physician History of Present Illness: patient continues to spike fever had been afebrile for quite some time also wbc has jumped up - Current Medication List Current Medications: Active Medications Acetaminophen (Tylenol Suppository -) 650 mg [place] Q6H PRN PRN Reason: FEVER Last Admin: 08/28/18 11:27 Dose: 650 mg Ascorbic Acid (Vitamin C -) 500 mg GT DAILY [facility] Last Admin: 08/28/18 10:27 Dose: 500 mg Aspirin (Asa -) 81 mg PO DAILY [facility] Last Admin: 08/26/18 10:15 Dose: 81 mg Collagenase (Santyl -) 1 applic TP DAILY [facility]; Protocol Last Admin: 08/28/18 11:28 Dose: 1 applic Donepezil HCl (Aricept -) 10 mg GT HS [facility] Last Admin: 08/27/18 23:26 Dose: 10 mg Doxycycline Hyclate (Vibramycin -) 100 mg PO BID@1000,1800 [facility] Last Admin: 08/28/18 10:27 Dose: 100 mg Piperacillin Sod/Tazobactam (Sod 3.375 gm/ Dextrose) 50 mls @ 100 mls/hr IVPB Q8H-IV ART; Protocol Sodium Chloride (Normal Saline -) 1,000 mls @ 10 mls/hr IV ASDIR [facility] Last Admin: 08/27/18 21:53 Dose: 10 mls/hr Metronidazole (Flagyl 500mg Premixed Ivpb -) 500 mg in 100 mls @ 100 mls/hr IVPB Q8H-IV ART Insulin Aspart (Novolog Vial Sliding Scale -) 1 vial SQ ACHS [facility]; Protocol Last Admin: 08/28/18 11:40 Dose: Not Given Loratadine (Claritin -) 10 mg PO DAILY [facility] Last Admin: 08/28/18 10:27 Dose: 10 mg Scopolamine HBr (Transderm-Scop -) 1 patch TD Q72H [facility] Last Admin: 08/26/18 11:59 Dose: 1 patch Thiamine HCl (Vitamin B1 -) 100 mg PO HS [facility] Last Admin: 08/27/18 23:26 Dose: 100 mg Valproate Sodium (Depakene -) 250 mg GT BID [facility] Last Admin: 08/28/18 10:27 Dose: 250 mg Zinc Sulfate (Orazinc -) 220 mg GT DAILY@0800 [facility] Last Admin: 08/28/18 08:39 Dose: 220 mg - Objective Vital Signs: Vital Signs Temperature 100.3 F H 08/28/18 06:00 Pulse Rate 100 H 08/28/18 06:00 Respiratory Rate 20 08/28/18 06:00 Blood Pressure 101/49 L 08/28/18 06:00 O2 Sat by Pulse Oximetry (%) 97 08/27/18 21:00 Constitutional: Yes: No Distress, Calm Cardiovascular: Yes: S1, S2 Respiratory: Yes: Poor Air Entry Gastrointestinal: Yes: Normal Bowel Sounds, Soft Musculoskeletal: Yes: WNL Extremities: Yes: Other Wound/Incision: Yes: Dressing Dry and Intact Neurological: Yes: Alert, Other Labs: CBC, BMP 08/28/18 10:50 08/28/18 10:50 INR, PTT INR 1.29 (0.83-1.09) H 07/29/18 05:15 Assessment/Plan also now patient is coughing and producing sputum Altered Mental Status r/o Neuroleptic Malignant Syndrome r/o Seizures Seizure Disorder h/o CVA Schizophrenia Alzheimer's Dementia drug reaction mrsa pneumonia plan repeat blood cx have been send if patient has any loose stools pls send cdiff will add zosyn and flagyl for now monitor wbc repeat wbc monitor fevers rest as per the team
--- NOTE | 2018-08-28 16:11 | ECHO ---
Name: DIANEJACK GRISSOM Exam:Adult Echocardiogram Study Date: 08/28/2018 03:24 PM Age: 62 yrs Reason For Study: EVALUATE PERICARDIAL EFFUSION Height: 67 in Weight: 148 lb BSA: 1.8 m2 MMode/2D Measurements & Calculations IVSd: 0.83 cm Ao root diam: 2.8 cm LVIDd: 4.4 cm LA dimension: 2.5 cm LVIDs: 3.2 cm LVPWd: 0.73 cm EDV(Teich): 86.8 ml TAPSE: 2.2 cm ESV(Teich): 40.3 ml Doppler Measurements & Calculations MV E max larry: 51.8 cm/sec Ao V2 max: 138.7 cm/sec MV A max larry: 68.1 cm/sec Ao max P.7 mmHg MV E/A: 0.76 MV dec time: 0.19 sec LV V1 max P.0 mmHg TR max larry: 241.3 cm/sec LV V1 max: 85.9 cm/sec TR max P.3 mmHg PI end-d larry: 129.0 cm/sec Med Peak E' Larry: 5.3 cm/sec Med E/e': 9.7 Lat Peak E' Larry: 10.2 cm/sec Lat E/e': 5.1 Procedure A two-dimensional transthoracic echocardiogram with color flow and Doppler was performed. The study w as technically difficult with many images being suboptimal in quality. Left Ventricle The left ventricular size, thickness and function are normal. The left ventricular ejection fraction is normal. E/A reversal consistent with but not diagnostic of poor LV compliance. Regional wall motion abnormalities cannot be excluded due to limited visualization. Right Ventricle The right ventricle is not well visualized. Atria Normal left and right atrial size and function. Mitral Valve The mitral valve is not well visualized. There is no mitral valve stenosis. There is trace mitral regurgitation. Tricuspid Valve The tricuspid valve is not well visualized. There is no tricuspid stenosis. There is trace tricuspid regurgitation. Right ventricular systolic pressure is normal. Aortic Valve The aortic valve is not well visualized. No hemodynamically significant valvular aortic stenosis. No aortic regurgitation is present. Pulmonic Valve The pulmonic valve is not well visualized. There is no pulmonic valvular stenosis. Trace pulmonic imer vular regurgitation. Great Vessels The aortic root is normal size. Pericardium/Pleura Trivial pericardial effusion not hemodynamically significant. Interpretation Summary The left ventricular size, thickness and function are normal The study was technically difficult with many images being suboptimal in quality. The left ventricular ejection fraction is normal. Regional wall motion abnormalities cannot be excluded due to limited visualization. Trivial pericardial effusion not hemodynamically significant There is trace tricuspid regurgitation. Right ventricular systolic pressure is normal. E/A reversal consistent with but not diagnostic of poor LV compliance There is trace mitral regurgitation. MD Cory Jorgensen 08/28/2018 04:11 PM
[2018-08-28 17:52] LABS: URINE APPEARANCE CLOUDY; URINE BILIRUBIN NEGATIVE (<2.0 mg/dL); URINE COLOR YELLOW; URINE GLUCOSE (UA) NEGATIVE (NEGATIVE); URINE KETONE NEGATIVE (NEGATIVE); URINE LEUK ESTERASE NEGATIVE (NEGATIVE); URINE NITRITE NEGATIVE (NEGATIVE); URINE PROTEIN NEGATIVE (NEGATIVE); URINE UROBILINOGEN NEGATIVE mg/dL (0.2-1.0)
[2018-08-28] MEDS ORDERED: PIPERACILLIN/TAZOB 3.375 GM 3.375 GM in DEXTROSE 5%-WATER - 50 ML IVPB SCH (18:00)
--- NOTE | 2018-08-28 19:12 | PN ---
Progress Note (short form) - Note Progress Note: 62 year old male history of Dementia, alcohol abuse, storke, HLD . Patient was in alf and was brought to hospital as he was having mental status detioration. Compa has ct head showed cortical atrophy and found to have high grade fever and suspected to have NMS and dantrolene was given Patient has been having generalized rigidity and he was on antipsychotic medication before comign to hospital and was stopped. Patient csf was benign. Now he continue to have confusion and stiffness. Patient has fever and high wbc. NEUROLOGICAL EXAMINATION febrile upto 101.2 He laying in bed and no acute distress, not following command. withdraws to pain There is rigidity in upper and lower extrmeity. pupils reactive mild terminal neck stiffness( part of generalized rigidity) mri of brain is normal, two ct head were unremarkable Previous eeg showed multiple muscle artifact. Assessment/Plan 62 year old male history of alcohol abuse, dementia with behavior disturbance was on two antipsychotic medicaitons ( haldol and seroquel ) in [place]. Initial diagnosis was Neuroleptic malignant syndrome. He do have history of seizure and there has not been any twitcing or focal seizure activity since admission , he is on depakote 250 mg bid . 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 His mental status change due to multiple factor( hospitalization, septicemia,and Dementia) Plan: continue treatment of fever and high wbc as per ID - For rigidity , artane 1 mg po/ng can be added, though it would not help mental status change Thanking you so much, would continue to follow with primary Thanking you so much Toni Heart MD
[2018-08-28] MEDS: SODIUM CHLORIDE 1,000 ML IV SCH (22:40)
[2018-08-28] MEDS: THIAMINE HCL 100 MG TABLET (FP) PO SCH (22:40)
[2018-08-28] MEDS: DONEPEZIL HCL 10 MG TABLET (FP) GT SCH (22:41)
[2018-08-28] MEDS: TRIHEXYPHENIDYL HCL 2 MG TABLET PO SCH (22:41)
[2018-08-29] MEDS ORDERED: DEXTROSE 5%-WATER - 50 ML IVPB ONE ×2 (02:40→17:07)
[2018-08-29] MEDS ORDERED: PIPERACILLIN/TAZOBACTAM 3.375 GM VIAL IVPB ONE ×3 (02:40→17:07)
[2018-08-29] MEDS: PIPERACILLIN/TAZOB 3.375 GM 3.375 GM in DEXTROSE 5%-WATER - 50 ML IVPB SCH ×3 (02:53→18:11)
[2018-08-29] MEDS: ACETAMINOPHEN 650 MG SUPP.RECT PR PRN ×2 (02:53→09:36)
[2018-08-29] MEDS: INSULIN SLIDING SCALE (NOVOLOG) 1 VIAL SQ SCH ×4 (06:56→22:20)
[2018-08-29] MEDS ORDERED: INSULIN (NOVOLOG) ASPART 100 UNITS/ML 10ML VIAL ONE ×2 (07:11→11:30)
[2018-08-29] MEDS ORDERED: INSULIN (LEVEMIR) 100 UNITS/ML UNITS SQ ONE (07:11)
[2018-08-29 08:32] LABS: BASO % 0.4 % (0-2.0); HEMATOCRIT 25.7 % (35.4-49); HEMOGLOBIN 8.8 GM/dL (11.7-16.9); LYMPH % 5.1 % (8-40); MCH 31.1 pg (25.7-33.7); MEAN CELL VOLUME 91.3 fl (80-96); MONO % 2.6 % (3.8-10.2); NEUT % 91.9 % (42.8-82.8); PLATELET COUNT 200 K/MM3 (134-434); RBC 2.82 M/mm3 (4.00-5.60); RDW 18.3 % (11.9-15.9); WHITE BLOOD COUNT 21.3 K/mm3 (4.0-10.0)
[2018-08-29] MEDS: ZINC SULFATE 220 MG CAPSULE (FP) GT SCH (08:36)
[2018-08-29] MEDS ORDERED: DEXTROSE 5%-WATER - 100 ML IVPB ONE (09:12)
[2018-08-29 09:20] LABS: ALBUMIN 2.2 g/dl (3.4-5.0); ALK PHOS 186 U/L (45-117); ANION GAP 8 MMOL/L (8-16); BILIRUBIN,TOTAL 0.4 mg/dL (0.2-1); BLOOD UREA NITROGEN 25 mg/dL (7-18); CALCIUM 7.8 mg/dL (8.5-10.1); CHLORIDE 110 mmol/L (98-107); CO2 28 mmol/L (21-32); CREATININE 0.9 mg/dL (0.55-1.3); GLUCOSE,RANDOM 91 mg/dL (74-106); MAGNESIUM 2.3 mg/dL (1.8-2.4); POTASSIUM 3.5 mmol/L (3.5-5.1); SGOT/AST 53 U/L (15-37); SGPT/ALT 73 U/L (13-61); SODIUM 146 mmol/L (136-145); TOT PROT 5.5 g/dl (6.4-8.2)
[2018-08-29] MEDS: ASCORBIC ACID 500 MG TABLET (FP) GT SCH (09:36)
[2018-08-29] MEDS: LORATADINE 10 MG TABLET PO SCH (09:36)
[2018-08-29] MEDS: VALPROATE SODIUM 250 MG/5 ML UNIT DOSE CUP GT SCH ×2 (09:36→22:19)
[2018-08-29] MEDS: TRIHEXYPHENIDYL HCL 2 MG TABLET PO SCH ×2 (09:40→22:19)
[2018-08-29] MEDS: DOXYCYCLINE HYCLATE 100 MG CAPSULE PO SCH ×2 (09:40→18:46)
[2018-08-29] MEDS: COLLAGENASE CLOSTRIDIUM HIST. 30 GRAMS TUBE TP SCH (10:18)
--- NOTE | 2018-08-29 10:49 | PN ---
GI Progress Note Subjective: Temp spike this morning to 102 with peristent fevers overnight - Objective Vital Signs: Vital Signs Temperature 102 F H 08/29/18 09:00 Pulse Rate 91 H 08/29/18 09:00 Respiratory Rate 19 08/29/18 09:00 Blood Pressure 111/65 08/29/18 09:00 O2 Sat by Pulse Oximetry (%) 97 08/28/18 21:00 Constitutional: Calm Eyes: No: Sclera Icterus (had to open his eyelids) Cardiovascular: Yes: Other (obscured by upper airway noise) Respiratory: Yes: Diminished (at bases with poor insp effort) Gastrointestinal Inspection: Yes: Other (limited evaluation as patient contracted). No: Distention ...Auscultate: Yes: Normoactive Bowel Sounds ...Palpate: Yes: Soft. No: Tenderness (No grimacing or verbalization upon palpation) ...Percussion: No: Tympanitic Edema: No (No LE edema) Labs: CBC, BMP 08/29/18 07:40 08/29/18 07:40 INR, PTT INR 1.29 (0.83-1.09) H 07/29/18 05:15 Hepatic Panel Total Bilirubin 0.4 mg/dL (0.2-1) 08/29/18 07:40 Direct Bilirubin 0.2 mg/dL (0.0-0.2) 07/29/18 05:15 AST 53 U/L (15-37) H 08/29/18 07:40 ALT 73 U/L (13-61) H 08/29/18 07:40 Alkaline Phosphatase 186 U/L (45-117) H 08/29/18 07:40 Albumin 2.2 g/dl (3.4-5.0) L 08/29/18 07:40 - ....Imaging Cat Scan: Report Reviewed (last imaging of abdomen was 08/16/18: Non obstructing left renal calculus), Image Reviewed (Gallbladder present) Problem List - Problems (1) Abnormal liver function tests Assessment/Plan: No grimacing or verbalization noted upon palaption of RUQ. Awaiting US Avoid hepatotoxic agents: minimize use of acetaminophen GI prophylaxis PEG on hold due to infectious issues Check baseline hepatitis screening serologies: Hepatitis A serologies, hepatitis B surface antibody/antigen, hepatitis C antibody Code(s): R94.5 - ABNORMAL RESULTS OF LIVER FUNCTION STUDIES
[2018-08-29] MEDS: PANTOPRAZOLE SODIUM 40 MG VIAL IVPUSH SCH (11:49)
[2018-08-29] MEDS: SCOPOLAMINE HYDROBROMIDE 1 PATCH PATCH.TD72 TD SCH (11:50)
[2018-08-29 12:45] LABS: ANISOCYTOSIS 1+; MACROCYTOSIS 0; PLATELET ESTIMATE NORMAL
--- NOTE | 2018-08-29 12:52 | PN ---
Progress Note (short form) - Note Progress Note: Renal follow up for Hypernatremia Pt seen and examined at the bedside sleeping NGT feeds being held on very low rate IVF continues to have fever Vital Signs Temperature 102 F H 08/29/18 09:00 Pulse Rate 91 H 08/29/18 09:00 Respiratory Rate 08/29/18 09:00 Blood Pressure 111/65 08/29/18 09:00 O2 Sat by Pulse Oximetry (%) 97 08/29/18 09:00 Intake & Output 08/26/18 08/27/18 08/28/18 08/29/18 23:59 23:59 23:59 23:59 Intake Total 1008 1631 1095 450 Balance 1008 1631 1095 450 NAD, Febrile not alert NGT in place Neck supple RRR CTA soft NT/ND no LE edema, clubbing or cyanosis CBC, BMP 08/29/18 07:40 08/29/18 07:40 Current Medications Acetaminophen (Tylenol Suppository -) 650 mg [place] Q6H PRN PRN Reason: FEVER Last Admin: 08/29/18 09:36 Dose: 650 mg Amino Acids (Prosource No Carb Liquid Pkt) 30 ml PO BID@0800,1730 [facility] Ascorbic Acid (Vitamin C -) 500 mg GT DAILY [facility] Last Admin: 08/29/18 09:36 Dose: 500 mg Aspirin (Asa -) 81 mg PO DAILY [facility] Last Admin: 08/26/18 10:15 Dose: 81 mg Collagenase (Santyl -) 1 applic TP DAILY [facility]; Protocol Last Admin: 08/28/18 11:28 Dose: 1 applic Donepezil HCl (Aricept -) 10 mg GT HS [facility] Last Admin: 08/28/18 22:41 Dose: 10 mg Doxycycline Hyclate (Vibramycin -) 100 mg PO BID@1000,1800 [facility] Last Admin: 08/29/18 09:40 Dose: 100 mg Metronidazole (Flagyl 500mg Premixed Ivpb -) 500 mg in 100 mls @ 100 mls/hr IVPB Q8H-IV [facility] Last Admin: 08/29/18 09:36 Dose: 100 mls/hr Piperacillin Sod/Tazobactam (Sod 3.375 gm/ Dextrose) 50 mls @ 100 mls/hr IVPB Q8H-IV [facility]; Protocol Last Admin: 08/29/18 09:35 Dose: 100 mls/hr Dextrose/Sodium Chloride (D5-1/2ns+40 Meq Kcl -) 40 meq in 1,000 mls @ 60 mls/ hr IV ASDIR [facility] Insulin Aspart (Novolog Vial Sliding Scale -) 1 vial SQ ACHS [facility]; Protocol Last Admin: 08/29/18 12:30 Dose: Not Given Loratadine (Claritin -) 10 mg PO DAILY [facility] Last Admin: 08/29/18 09:36 Dose: 10 mg Pantoprazole Sodium (Protonix Iv) 40 mg IVPUSH DAILY [facility] Last Admin: 08/29/18 11:49 Dose: 40 mg Scopolamine HBr (Transderm-Scop -) 1 patch TD Q72H [facility] Last Admin: 08/29/18 11:50 Dose: 1 patch Thiamine HCl (Vitamin B1 -) 100 mg PO HS [facility] Last Admin: 08/28/18 22:40 Dose: 100 mg Trihexyphenidyl HCl (Artane -) 1 mg PO BID [facility] Last Admin: 08/29/18 09:40 Dose: 1 mg Valproate Sodium (Depakene -) 250 mg GT BID [facility] Last Admin: 08/29/18 09:36 Dose: 250 mg Zinc Sulfate (Orazinc -) 220 mg GT DAILY@0800 [facility] Last Admin: 08/29/18 08:36 Dose: 220 mg 62 year old gentleman with hx of CVA, Dementia, Hx of ETOH abuse, HLD who presented with AMS, Fevers and poor oral intake with encephlopathy/MRSA PNA/ Persistent fevers and hypernatremia. #Hypernatremia (free water deficit ~4L) in setting of persistent fevers #AMS/Encephlopathy #Fevers #MRSA PNA #Dementia with hx of CVA serum Na rising again with fevers given NGT feeds held will restart hypotonic IVF Trend serum Na and other electrolytes daily Thank you Gregorio Aldrich DO
[2018-08-29] MEDS ORDERED: IBUPROFEN 800 MG/8 ML IJ IVPB ONE (12:57)
[2018-08-29] MEDS ORDERED: D5-1/2NS+40 MEQ KCL - 40 MEQ/1,000 ML INFUS.BAG IV SCH ×2 (13:00→15:30)
--- NOTE | 2018-08-29 13:55 | PN ---
Physical Exam: SUBJECTIVE: Patient seen and examined at the bedside. Sister at the bedside. discussed POC with her. Patient is awake and attempts to talk, but his fevers persists which renders him weak tmax 103F OBJECTIVE: for liver ultrasound Vital Signs Period Temp Pulse Resp BP Sys/Cortes Pulse Ox Last 24 Hr 99.9 F-103 F 86-100 18-20 90-111/47-65 97-97 GENERAL: more awake, opens eyes intermittently. mumbles a few words HEAD: Normal with no signs of trauma. has increased temporal wasting. EYES: PERRL, extraocular movements intact, sclera anicteric, conjunctiva clear. No ptosis. ENT: Ears normal, nares patent, oropharynx clear without exudates, moist mucous membranes - ngt feeds NECK: Trachea midline, full range of motion, supple. LUNGS: congested bilaterally anterior, improved HEART: Regular rate and rhythm ABDOMEN: Soft, nontender, nondistended, normoactive bowel sounds - possible peg tube EXTREMITIES: no edema. right hip with evidence of deep tissue injury, left hip with large 6cm x 8cm pressure ulcer unstageable. unstegeable left heal pressure ulcer. NEUROLOGICAL: more awake and alert today, answering questions appropriately Laboratory Results - last 24 hr 08/28/18 08/28/18 08/29/18 14:10 17:15 07:40 WBC 21.3 H RBC 2.82 L Hgb 8.8 L Hct 25.7 L MCV 91.3 MCH 31.1 MCHC 34.0 RDW 18.3 H Plt Count 200 MPV 10.0 Absolute Neuts (auto) 19.5 H Neutrophils % 91.9 H Neutrophils % (Manual) 90.4 H Band Neutrophils % 0.0 Lymphocytes % 5.1 L D Lymphocytes % (Manual) 9.6 D Monocytes % 2.6 L D Monocytes % (Manual) 0 L D Eosinophils % 0.0 D Eosinophils % (Manual) 0.0 Basophils % 0.4 Basophils % (Manual) 0.0 Myelocytes % (Man) 0 Promyelocytes % (Man) 0 Blast Cells % (Manual) 0 Nucleated RBC % 0 Metamyelocytes 0 Hypochromia 0 Platelet Estimate Normal Polychromasia 1+ Poikilocytosis 0 Anisocytosis 1+ Microcytosis 1+ Macrocytosis 0 Sodium Potassium Chloride Carbon Dioxide Anion Gap BUN Creatinine Creat Clearance w eGFR Random Glucose Lactic Acid 1.1 Calcium Magnesium Total Bilirubin AST ALT Alkaline Phosphatase Total Protein Albumin Urine Color Yellow Urine Appearance Cloudy Urine pH 5.0 Ur Specific [place] 1.023 Urine Protein Negative Urine Glucose (UA) Negative Urine Ketones Negative Urine Blood Negative Urine Nitrite Negative Urine Bilirubin Negative Urine Urobilinogen Negative Ur Leukocyte Esterase Negative 08/29/18 07:40 WBC RBC Hgb Hct MCV MCH MCHC RDW Plt Count MPV Absolute Neuts (auto) Neutrophils % Neutrophils % (Manual) Band Neutrophils % Lymphocytes % Lymphocytes % (Manual) Monocytes % Monocytes % (Manual) Eosinophils % Eosinophils % (Manual) Basophils % Basophils % (Manual) Myelocytes % (Man) Promyelocytes % (Man) Blast Cells % (Manual) Nucleated RBC % Metamyelocytes Hypochromia Platelet Estimate Polychromasia Poikilocytosis Anisocytosis Microcytosis Macrocytosis Sodium 146 H Potassium 3.5 Chloride 110 H Carbon Dioxide 28 Anion Gap 8 BUN 25 H Creatinine 0.9 Creat Clearance w eGFR > 60 Random Glucose 91 Lactic Acid Calcium 7.8 L Magnesium 2.3 Total Bilirubin 0.4 AST 53 H ALT 73 H Alkaline Phosphatase 186 H Total Protein 5.5 L Albumin 2.2 L Urine Color Urine Appearance Urine pH Ur Specific [place] Urine Protein Urine Glucose (UA) Urine Ketones Urine Blood Urine Nitrite Urine Bilirubin Urine Urobilinogen Ur Leukocyte Esterase Active Medications Generic Name Dose Route Start Last Admin Trade Name Freq PRN Reason Stop Dose Admin Acetaminophen 650 mg 08/19/18 21:45 08/29/18 09:36 Tylenol Suppository - [place] 650 mg Q6H PRN Administration FEVER Amino Acids 30 ml 08/29/18 17:30 Prosource No Carb Liquid Pkt PO BID@0800,1730 [facility] Ascorbic Acid 500 mg 08/18/18 14:59 08/29/18 09:36 Vitamin C - GT 500 mg DAILY ART Administration Aspirin 81 mg 08/01/18 10:00 08/26/18 10:15 Asa - PO 81 mg DAILY ART Administration Collagenase 1 applic 08/27/18 15:55 08/28/18 11:28 Santyl - TP 1 applic DAILY ART Administration Protocol Donepezil HCl 10 mg 08/18/18 14:59 08/28/18 22:41 Aricept - GT 10 mg HS ART Administration Doxycycline Hyclate 100 mg 08/21/18 18:00 08/29/18 09:40 Vibramycin - PO 100 mg BID@1000,1800 ART Administration Metronidazole 500 mg in 100 mls @ 100 mls/hr 08/28/18 18:00 08/29/18 09:36 Flagyl 500mg Premixed Ivpb - IVPB 100 mls/hr Q8H-IV ART Administration Piperacillin Sod/Tazobactam 50 mls @ 100 mls/hr 08/28/18 18:00 08/29/18 09:35 Sod 3.375 gm/ Dextrose IVPB 100 mls/hr Q8H-IV ART Administration Protocol Dextrose/Sodium Chloride 40 meq in 1,000 mls @ 60 mls/hr 08/29/18 13:00 D5-1/2ns+40 Meq Kcl - IV ASDIR ART Insulin Aspart 1 vial 08/13/18 11:00 08/29/18 12:30 Novolog Vial Sliding Scale - SQ Not Given ACHS ART Protocol Loratadine 10 mg 08/22/18 13:45 08/29/18 09:36 Claritin - PO 10 mg DAILY ART Administration Pantoprazole Sodium 40 mg 08/29/18 11:15 08/29/18 11:49 Protonix Iv IVPUSH 40 mg DAILY ART Administration Scopolamine HBr 1 patch 08/23/18 12:00 08/29/18 11:50 Transderm-Scop - TD 1 patch Q72H ART Administration Thiamine HCl 100 mg 08/07/18 22:00 08/28/18 22:40 Vitamin B1 - PO 100 mg HS ART Administration Trihexyphenidyl HCl 1 mg 08/28/18 22:00 08/29/18 09:40 Artane - PO 1 mg BID ART Administration Valproate Sodium 250 mg 08/18/18 22:00 08/29/18 09:36 Depakene - GT 250 mg BID ART Administration Zinc Sulfate 220 mg 08/18/18 15:00 08/29/18 08:36 Orazinc - GT 220 mg DAILY@0800 ART Administration ASSESSMENT/PLAN: Patient is a 62 year old male with history of dementia, prior alcohol abuse, CVA 's, and hyperlipidemia. He presented to the ED with an altered mental status, poor oral intake of oral foods and fluids. Patient was reportedly on haldol and seroquel and has been more lethargic with increased muscle rigidity from NH. ID: Severe Sepsis WBC 32.5>21, tachycardia, fevers continue to have fevers of unknown origin. Previous imaging of abd/ct/chest does not explain fevers. Negative for DVT. Blood culture x 1 bottle pending organism Tmax 103F Re started on Zosyn and Flagyl added Abd/pelvis CT ordered to rule out abscess and look for source of fever Liver ultrasound pending Fevers of unknown origin Patient under treatment for mrsa pneumonia but fevers persisted despite antibiotics. ID stopped vanco with close monitoring. Was afebrile for 3 days, now fevers returned. Restarted on Zosyn and Flagyl Mrsa pneumonia +mrsa on sputum, On Zosyn per ID. Vanco discontinued. Neuro: Acute metabolic encephalopathy. Neuroleptic malignant syndrome/fevers Advanced dementia mental status waxes and wanes. At times alert, at times lethargic, continues to spike fevers tmax 103.F rectal. Neuro following Vascular Large unstageable left hip wound Large left heel wound On Santyl daily Vascular consulted Possible source of fevers? wound appears wet and discolored. Neuro: Seizure Disorder h/o CVA Schizophrenia Alzheimer's Dementia Shingles history On ASA 81mg On Valproate 250mg IV BID, Donepezil 10mg PO hs. Started on Artane bid GI elevated ast/alt, liver ultrasound ordered Peg placement once afebrile and more stable. fen monitor electrolytes ngt feeds with vital 1.2 with uptitrate as tolerated full code. Disposition. peg tube placement once afebrile. Visit type - Emergency Visit Emergency Visit: Yes ED Registration Date: 07/28/18 Care time: The patient presented to the Emergency Department on the above date and was hospitalized for further evaluation of their emergent condition. - New Patient This patient is new to me today: No - Critical Care Critical Care patient: No - Discharge Referral Referred to [facility] Med P.C.: No
[2018-08-29] MEDS ORDERED: PT OWN MED DRAWER 7, Y5N ONE ×3 (16:10→18:41)
--- NOTE | 2018-08-29 16:22 | PN ---
Progress Note, Physician History of Present Illness: patient continues to spike fever now with blood cx positive - Current Medication List Current Medications: Active Medications Acetaminophen (Tylenol Suppository -) 650 mg ND Q6H PRN PRN Reason: FEVER Last Admin: 08/29/18 09:36 Dose: 650 mg Amino Acids (Prosource No Carb Liquid Pkt) 30 ml PO BID@0800,1730 [facility] 234 BEDS AT THE [facility] Ascorbic Acid (Vitamin C -) 500 mg GT DAILY COUNTS INCLUDE 234 BEDS AT THE [facility] Last Admin: 08/29/18 09:36 Dose: 500 mg Aspirin (Asa -) 81 mg PO DAILY COUNTS INCLUDE 234 BEDS AT THE [facility] Last Admin: 08/26/18 10:15 Dose: 81 mg Collagenase (Santyl -) 1 applic TP DAILY COUNTS [facility]CLUDE 234 BEDS AT THE [facility]; Protocol Last Admin: 08/28/18 11:28 Dose: 1 applic Donepezil HCl (Aricept -) 10 mg GT HS COUNTS INCLUDE 234 BEDS AT THE [facility] Last Admin: 08/28/18 22:41 Dose: 10 mg Doxycycline Hyclate (Vibramycin -) 100 mg PO BID@1000,1800 [facility]S [facility]CLUDE 234 BEDS AT THE [facility] Last Admin: 08/29/18 09:40 Dose: 100 mg Metronidazole (Flagyl 500mg Premixed Ivpb -) 500 mg in 100 mls @ 100 mls/hr IVPB Q8H-IV ART Last Admin: 08/29/18 09:36 Dose: 100 mls/hr Piperacillin Sod/Tazobactam (Sod 3.375 gm/ Dextrose) 50 mls @ 100 mls/hr IVPB Q8H-IV ART; Protocol Last Admin: 08/29/18 09:35 Dose: 100 mls/hr Dextrose/Sodium Chloride (D5-1/2ns+40 Meq Kcl -) 40 meq in 1,000 mls @ 60 mls/ hr IV ASDIR COUNTS INCLUDE 234 [facility]S AT THE [facility] Insulin Aspart (Novolog Vial Sliding Scale -) 1 vial SQ ACHS COUNTS INCLUDE 234 BEDS AT THE [facility]; Protocol Last Admin: 08/29/18 12:30 Dose: Not Given Loratadine (Claritin -) 10 mg PO DAILY COUNTS [facility]CLUDE 234 BEDS AT THE [facility] Last Admin: 08/29/18 09:36 Dose: 10 mg Multivitamins/Minerals (Infuvite Adult -) 10 ml IV DAILY COUNTS [facility]CLUDE 234 BEDS AT THE [facility] Pantoprazole Sodium (Protonix Iv) 40 mg IVPUSH DAILY COUNTS INCLUDE 234 BEDS AT THE [facility] Last Admin: 08/29/18 11:49 Dose: 40 mg Scopolamine HBr (Transderm-Scop -) 1 patch TD Q72H COUNTS INCLUDE 234 BEDS AT THE [facility] Last Admin: 08/29/18 11:50 Dose: 1 patch Thiamine HCl (Vitamin B1 -) 100 mg PO [facility] Last Admin: 08/28/18 22:40 Dose: 100 mg Trihexyphenidyl HCl (Artane -) 1 mg PO BID COUNTS INCLUDE 234 BEDS AT THE [facility] Last Admin: 08/29/18 09:40 Dose: 1 mg Valproate Sodium (Depakene -) 250 mg GT BID COUNTS INCLUDE 234 BEDS AT THE [facility] Last Admin: 08/29/18 09:36 Dose: 250 mg Zinc Sulfate (Orazinc -) 220 mg GT DAILY@0800 COUNTS [facility]CLUDE 234 BEDS AT THE [facility] Last Admin: 08/29/18 08:36 Dose: 220 mg - Objective Vital Signs: Vital Signs Temperature 102.8 F H 08/29/18 14:38 Pulse Rate 89 08/29/18 14:38 Respiratory Rate 20 08/29/18 14:38 Blood Pressure 127/73 08/29/18 14:38 O2 Sat by Pulse Oximetry (%) 97 08/29/18 09:00 Constitutional: Yes: No Distress, Calm Cardiovascular: Yes: S1, S2 Respiratory: Yes: Regular, Poor Air Entry Gastrointestinal: Yes: Normal Bowel Sounds, Soft Musculoskeletal: Yes: WNL Extremities: Yes: Other Neurological: Yes: Alert, Other Psychiatric: Yes: Other Labs: CBC, BMP 08/29/18 07:40 08/29/18 07:40 INR, PTT INR 1.29 (0.83-1.09) H 07/29/18 05:15 Assessment/Plan also now patient is coughing and producing sputum Altered Mental Status r/o Neuroleptic Malignant Syndrome r/o Seizures Seizure Disorder h/o CVA Schizophrenia Alzheimer's Dementia drug reaction mrsa pneumonia gm negative bactermia plan will repeat blood cx u/s of liver and gall bladder might have to do ct scan of abd and pelvis nutrition rest as per the team monitor fevers
[2018-08-29] MEDS ORDERED: ACETAMINOPHEN 1000 MG/100 ML VIAL (NON FORMULARY) IVPB ONE (16:44)
--- NOTE | 2018-08-29 17:46 | PN ---
Progress Note (short form) - Note Progress Note: 62 year old male history of Dementia, alcohol abuse, storke, HLD . Patient was in assisted and was brought to hospital as he was having mental status detioration. Compa has ct head showed cortical atrophy and found to have high grade fever and suspected to have NMS and dantrolene was given Patient has been having generalized rigidity and he was on antipsychotic medication before comign to hospital and was stopped. Patient csf was benign. He remained confused and do not open eyes, respond to painful stimuli. No acute disterss. Continue to spike fever. NEUROLOGICAL EXAMINATION febrile upto 101.2 He laying in bed and no acute distress, not following command. withdraws to pain There is rigidity in upper and lower extrmeity. pupils reactive mild terminal neck stiffness( part of generalized rigidity) mri of brain is normal, two ct head were unremarkable Previous eeg showed multiple muscle artifact. Assessment/Plan 62 year old male history of alcohol abuse, dementia with behavior disturbance was on two antipsychotic medicaitons ( haldol and seroquel ) in [place]. Initial diagnosis was Neuroleptic malignant syndrome. He do have history of seizure and there has not been any twitcing or focal seizure activity since admission , he is on depakote 250 mg bid . 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 His mental status change due to multiple factor( hospitalization, septicemia,and Dementia) continue to spike fever, wbc is coming doen Plan: continue treatment of fever and high wbc as per ID - For rigidity , continue artane 1 mg po/ng was added, no significant change. Thanking you so much, would continue to follow with primary Thanking you so much Toni Heart MD
[2018-08-29] MEDS: MULTIVIT INJ. ADULT COMBO WITH VIT K 1 COMBO 10 ML VIAL IV SCH (18:14)
[2018-08-29] MEDS: D5-1/2NS+40 MEQ KCL - 40 MEQ/1,000 ML INFUS.BAG IV SCH (18:14)
[2018-08-29] MEDS: AMINO ACIDS/PROTEIN HYDROLYS 30 ML LIQUID.PKT PO SCH (18:45)
[2018-08-29] MEDS: DONEPEZIL HCL 10 MG TABLET (FP) GT SCH (22:17)
[2018-08-29] MEDS: THIAMINE HCL 100 MG TABLET (FP) PO SCH (22:18)
[2018-08-30] MEDS ORDERED: DEXTROSE 5%-WATER - 50 ML IVPB ONE ×4 (00:37→23:07)
[2018-08-30] MEDS ORDERED: PIPERACILLIN/TAZOBACTAM 3.375 GM VIAL IVPB ONE ×4 (00:37→23:06)
[2018-08-30] MEDS: PIPERACILLIN/TAZOB 3.375 GM 3.375 GM in DEXTROSE 5%-WATER - 50 ML IVPB SCH ×3 (02:00→20:16)
[2018-08-30] MEDS: ACETAMINOPHEN 650 MG SUPP.RECT PR PRN ×3 (05:03→23:33)
[2018-08-30] MEDS: INSULIN SLIDING SCALE (NOVOLOG) 1 VIAL SQ SCH ×4 (06:45→22:29)
[2018-08-30 07:59] LABS: ANION GAP 6 MMOL/L (8-16); BLOOD UREA NITROGEN 20 mg/dL (7-18); CALCIUM 7.8 mg/dL (8.5-10.1); CHLORIDE 116 mmol/L (98-107); CO2 27 mmol/L (21-32); CREATININE 0.8 mg/dL (0.55-1.3); GLUCOSE,RANDOM 129 mg/dL (74-106); POTASSIUM 3.7 mmol/L (3.5-5.1); SODIUM 148 mmol/L (136-145)
[2018-08-30] MEDS: ZINC SULFATE 220 MG CAPSULE (FP) GT SCH (08:00)
[2018-08-30] MEDS: AMINO ACIDS/PROTEIN HYDROLYS 30 ML LIQUID.PKT PO SCH ×2 (09:00→18:13)
--- NOTE | 2018-08-30 09:26 | PN ---
Physical Exam: SUBJECTIVE: Patient seen and examined, non verbal at baseline. contracted. rigid. fevers overnight. OBJECTIVE: awaiting todays labs abd/ct pelvis w/o abscess, distended gallbladder with sludge Vital Signs Period Temp Pulse Resp BP Sys/Cortes Pulse Ox Last 24 Hr 99.3 F-103.0 F 83-90 20-22 117-139/73-75 97 GENERAL: more awake, opens eyes intermittently. mumbles a few words HEAD: Normal with no signs of trauma. has increased temporal wasting. EYES: PERRL, extraocular movements intact, sclera anicteric, conjunctiva clear. No ptosis. ENT: Ears normal, nares patent, oropharynx clear without exudates, moist mucous membranes - ngt feeds NECK: Trachea midline, full range of motion, supple. LUNGS: congested bilaterally anterior, wet cough HEART: Regular rate and rhythm ABDOMEN: Soft, nontender, nondistended, normoactive bowel sounds - possible peg tube placement once afebrile EXTREMITIES: no edema. right hip with evidence of deep tissue injury, left hip with large 6cm x 8cm pressure ulcer unstageable. healing unstegeable left heal pressure ulcer. NEUROLOGICAL: lethargic, at times more awake Laboratory Results - last 24 hr 08/29/18 08/30/18 07:40 06:40 Neutrophils % (Manual) 90.4 H Band Neutrophils % 0.0 Lymphocytes % (Manual) 9.6 D Monocytes % (Manual) 0 L D Eosinophils % (Manual) 0.0 Basophils % (Manual) 0.0 Myelocytes % (Man) 0 Promyelocytes % (Man) 0 Blast Cells % (Manual) 0 Metamyelocytes 0 Hypochromia 0 Platelet Estimate Normal Polychromasia 1+ Poikilocytosis 0 Anisocytosis 1+ Microcytosis 1+ Macrocytosis 0 Sodium 148 H Potassium 3.7 Chloride 116 H Carbon Dioxide 27 Anion Gap 6 L BUN 20 H Creatinine 0.8 Creat Clearance w eGFR > 60 Random Glucose 129 H Calcium 7.8 L Active Medications Generic Name Dose Route Start Last Admin Trade Name Freq PRN Reason Stop Dose Admin Acetaminophen 650 mg 08/19/18 21:45 08/30/18 05:03 Tylenol Suppository - [place] 650 mg Q6H PRN Administration FEVER Amino Acids 30 ml 08/29/18 17:30 08/29/18 18:45 Prosource No Carb Liquid Pkt PO 30 ml BID@0800,1730 ART Administration Ascorbic Acid 500 mg 08/18/18 14:59 08/29/18 09:36 Vitamin C - GT 500 mg DAILY ART Administration Aspirin 81 mg 08/01/18 10:00 08/26/18 10:15 Asa - PO 81 mg DAILY ART Administration Collagenase 1 applic 08/27/18 15:55 08/29/18 10:18 Santyl - TP 1 applic DAILY ART Administration Protocol Donepezil HCl 10 mg 08/18/18 14:59 08/29/18 22:17 Aricept - GT 10 mg HS ART Administration Doxycycline Hyclate 100 mg 08/21/18 18:00 08/29/18 18:46 Vibramycin - PO 100 mg BID@1000,1800 ART Administration Metronidazole 500 mg in 100 mls @ 100 mls/hr 08/28/18 18:00 08/30/18 02:00 Flagyl 500mg Premixed Ivpb - IVPB 100 mls/hr Q8H-IV ART Administration Piperacillin Sod/Tazobactam 50 mls @ 100 mls/hr 08/28/18 18:00 08/30/18 02:00 Sod 3.375 gm/ Dextrose IVPB 100 mls/hr Q8H-IV ART Administration Protocol Dextrose/Sodium Chloride 40 meq in 1,000 mls @ 60 mls/hr 08/29/18 15:30 08/29 18:14 D5-1/2ns+40 Meq Kcl - IV 60 mls/hr ASDIR ART Administration Insulin Aspart 1 vial 08/13/18 11:00 08/30/18 06:45 Novolog Vial Sliding Scale - SQ Not Given ACHS ART Protocol Loratadine 10 mg 08/22/18 13:45 08/29/18 09:36 Claritin - PO 10 mg DAILY ART Administration Multivitamins/Minerals 10 ml 08/29/18 14:15 08/29/18 18:14 Infuvite Adult - IV 10 ml DAILY ART Administration Pantoprazole Sodium 40 mg 08/29/18 11:15 08/29/18 11:49 Protonix Iv IVPUSH 40 mg DAILY ART Administration Scopolamine HBr 1 patch 08/23/18 12:00 08/29/18 11:50 Transderm-Scop - TD 1 patch Q72H ART Administration Thiamine HCl 100 mg 08/07/18 22:00 08/29/18 22:18 Vitamin B1 - PO 100 mg HS ART Administration Trihexyphenidyl HCl 1 mg 08/28/18 22:00 08/29/18 22:19 Artane - PO 1 mg BID ART Administration Valproate Sodium 250 mg 08/18/18 22:00 08/29/18 22:19 Depakene - GT 250 mg BID ART Administration Zinc Sulfate 220 mg 08/18/18 15:00 08/29/18 08:36 Orazinc - GT 220 mg DAILY@0800 ART Administration ASSESSMENT/PLAN: Patient is a 62 year old male with history of dementia, prior alcohol abuse, CVA 's, and hyperlipidemia. He presented to the ED with an altered mental status, poor oral intake of oral foods and fluids. Patient was reportedly on haldol and seroquel and has been more lethargic with increased muscle rigidity from NH. ID: Sepsis Fevers of unknown origin, persist. WBC 32.5>21 > ____, tachycardia, fevers continue to have fevers of unknown origin. imaging of abd/ct/chest does not explain fevers, no abscess. Negative for DVT. Blood culture x 1 bottle with lactose fermenting neg baci. awaiting sensitivities Tmax 103F. On Zoyn and flagyl. Liver u/s with sludge, no acute geoff seen Neuro: Acute metabolic encephalopathy. Neuroleptic malignant syndrome/fevers Advanced dementia mental status waxes and wanes. At times alert, at times lethargic, continues to spike fevers tmax 103.F rectal. Neuro following. started on artane Vascular Large unstageable left hip wound, cleansed and santyl applied daily. Large left heel wound, healed unsteageable. santyl applied. Neuro: Seizure Disorder h/o CVA Schizophrenia Alzheimer's Dementia Shingles history On ASA 81mg On Valproate 250mg IV BID, Donepezil 10mg PO hs. on Artane bid GI elevated ast/alt, liver ultrasound ordered and reviewed hep panel ordered for peg tube placement once afebrile fen monitor electrolytes ngt feeds with vital 1.2 with uptitrate as tolerated full code. Disposition. peg tube placement once afebrile. Visit type - Emergency Visit Emergency Visit: Yes ED Registration Date: 07/28/18 Care time: The patient presented to the Emergency Department on the above date and was hospitalized for further evaluation of their emergent condition. - New Patient This patient is new to me today: No - Critical Care Critical Care patient: No - Discharge Referral Referred to [facility] No
[2018-08-30] MEDS: ASCORBIC ACID 500 MG TABLET (FP) GT SCH (10:00)
[2018-08-30] MEDS: VALPROATE SODIUM 250 MG/5 ML UNIT DOSE CUP GT SCH ×2 (11:00→22:28)
[2018-08-30] MEDS: PANTOPRAZOLE SODIUM 40 MG VIAL IVPUSH SCH (11:00)
[2018-08-30] MEDS: DOXYCYCLINE HYCLATE 100 MG CAPSULE PO SCH ×2 (11:00→18:10)
[2018-08-30] MEDS: LORATADINE 10 MG TABLET PO SCH (11:00)
[2018-08-30] MEDS: TRIHEXYPHENIDYL HCL 2 MG TABLET PO SCH ×2 (11:00→23:00)
[2018-08-30 12:10] LABS: BASO % 0.4 % (0-2.0); EOS % 0.1 % (0-4.5); HEMATOCRIT 29.1 % (35.4-49); HEMOGLOBIN 9.8 GM/dL (11.7-16.9); LYMPH % 4.9 % (8-40); MCH 31.3 pg (25.7-33.7); MCHC 33.7 g/dl (32.0-35.9); NEUT % 91.6 % (42.8-82.8); PLATELET COUNT 171 K/MM3 (134-434); RBC 3.12 M/mm3 (4.00-5.60); RDW 18.3 % (11.9-15.9); WHITE BLOOD COUNT 12.1 K/mm3 (4.0-10.0)
[2018-08-30 13:22] LABS: ANISOCYTOSIS 1+; MACROCYTOSIS 1+; OVALOCYTE 1+; PLATELET ESTIMATE NORMAL
--- NOTE | 2018-08-30 14:48 | PN ---
Progress Note, Physician - Current Medication List Current Medications: Active Medications Acetaminophen (Tylenol Suppository -) 650 mg [place] Q6H PRN PRN Reason: FEVER Last Admin: 08/30/18 05:03 Dose: 650 mg Amino Acids (Prosource No Carb Liquid Pkt) 30 ml PO BID@0800,1730 [facility] Last Admin: 08/30/18 09:00 Dose: 30 ml Ascorbic Acid (Vitamin C -) 500 mg GT DAILY [facility] Last Admin: 08/30/18 10:00 Dose: 500 mg Aspirin (Asa -) 81 mg PO DAILY [facility] Last Admin: 08/26/18 10:15 Dose: 81 mg Collagenase (Santyl -) 1 applic TP DAILY [facility]; Protocol Last Admin: 08/29/18 10:18 Dose: 1 applic Donepezil HCl (Aricept -) 10 mg GT HS [facility] Last Admin: 08/29/18 22:17 Dose: 10 mg Doxycycline Hyclate (Vibramycin -) 100 mg PO BID@1000,1800 [facility] Last Admin: 08/30/18 11:00 Dose: 100 mg Metronidazole (Flagyl 500mg Premixed Ivpb -) 500 mg in 100 mls @ 100 mls/hr IVPB Q8H-IV ART Last Admin: 08/30/18 11:00 Dose: 100 mls/hr Piperacillin Sod/Tazobactam (Sod 3.375 gm/ Dextrose) 50 mls @ 100 mls/hr IVPB Q8H-IV [facility]; Protocol Last Admin: 08/30/18 11:00 Dose: 100 mls/hr Dextrose/Sodium Chloride (D5-1/2ns+40 Meq Kcl -) 40 meq in 1,000 mls @ 60 mls/ hr IV ASDIR [facility] Last Admin: 08/29/18 18:14 Dose: 60 mls/hr Insulin Aspart (Novolog Vial Sliding Scale -) 1 vial SQ ACHS [facility]; Protocol Last Admin: 08/30/18 12:24 Dose: Not Given Loratadine (Claritin -) 10 mg PO DAILY [facility] Last Admin: 08/30/18 11:00 Dose: 10 mg Multivitamins/Minerals (Infuvite Adult -) 10 ml IV DAILY [facility] Last Admin: 08/29/18 18:14 Dose: 10 ml Pantoprazole Sodium (Protonix Iv) 40 mg IVPUSH DAILY [facility] Last Admin: 08/30/18 11:00 Dose: 40 mg Scopolamine HBr (Transderm-Scop -) 1 patch TD Q72H [facility] Last Admin: 08/29/18 11:50 Dose: 1 patch Thiamine HCl (Vitamin B1 -) 100 mg PO HS [facility] Last Admin: 08/29/18 22:18 Dose: 100 mg Trihexyphenidyl HCl (Artane -) 1 mg PO BID [facility] Last Admin: 08/30/18 11:00 Dose: 1 mg Valproate Sodium (Depakene -) 250 mg GT BID [facility] Last Admin: 08/30/18 11:00 Dose: 250 mg Zinc Sulfate (Orazinc -) 220 mg GT DAILY@0800 [facility] Last Admin: 08/30/18 08:00 Dose: 220 mg - Objective Vital Signs: Vital Signs Temperature 101.1 F H 08/30/18 05:03 Pulse Rate 83 08/30/18 06:00 Respiratory Rate 20 08/30/18 06:00 Blood Pressure 139/74 08/30/18 06:00 O2 Sat by Pulse Oximetry (%) 97 08/29/18 21:00 Labs: CBC, BMP 08/30/18 11:45 08/30/18 06:40 INR, PTT INR 1.29 (0.83-1.09) H 07/29/18 05:15
--- NOTE | 2018-08-30 15:07 | PN ---
Progress Note (short form) - Note Progress Note: Renal follow up for Hypernatremia Pt seen and examined at the bedside awake not verbal has secretions in mouth Tube feeds held on IVF Febrile overnight Vital Signs Temperature 101.1 F H 08/30/18 05:03 Pulse Rate 83 08/30/18 06:00 Respiratory Rate 20 08/30/18 06:00 Blood Pressure 139/74 08/30/18 06:00 O2 Sat by Pulse Oximetry (%) 97 08/29/18 21:00 Intake & Output 08/27/18 08/28/18 08/29/18 08/30/18 23:59 23:59 23:59 23:59 Intake Total 1631 1095 1080 1220 Balance 1631 1095 1080 1220 NAD not alert NGT in place Neck supple RRR Course BS soft NT/ND no LE edema, clubbing or cyanosis CBC, BMP 08/30/18 11:45 08/30/18 06:40 Current Medications Acetaminophen (Tylenol Suppository -) 650 mg MD Q6H PRN PRN Reason: FEVER Last Admin: 08/30/18 05:03 Dose: 650 mg Amino Acids (Prosource No Carb Liquid Pkt) 30 ml PO BID@0800,1730 [facility] Last Admin: 08/30/18 09:00 Dose: 30 ml Ascorbic Acid (Vitamin C -) 500 mg GT DAILY [facility] Last Admin: 08/30/18 10:00 Dose: 500 mg Aspirin (Asa -) 81 mg PO DAILY ART Last Admin: 08/26/18 10:15 Dose: 81 mg Collagenase (Santyl -) 1 applic TP DAILY ART; Protocol Last Admin: 08/29/18 10:18 Dose: 1 applic Donepezil HCl (Aricept -) 10 mg GT HS [facility] Last Admin: 08/29/18 22:17 Dose: 10 mg Doxycycline Hyclate (Vibramycin -) 100 mg PO BID@1000,1800 ART Last Admin: 08/30/18 11:00 Dose: 100 mg Metronidazole (Flagyl 500mg Premixed Ivpb -) 500 mg in 100 mls @ 100 mls/hr IVPB Q8H-IV ART Last Admin: 08/30/18 11:00 Dose: 100 mls/hr Piperacillin Sod/Tazobactam (Sod 3.375 gm/ Dextrose) 50 mls @ 100 mls/hr IVPB Q8H-IV ART; Protocol Last Admin: 08/30/18 11:00 Dose: 100 mls/hr Dextrose/Sodium Chloride (D5-1/2ns+40 Meq Kcl -) 40 meq in 1,000 mls @ 60 mls/ hr IV ASDIR [facility] Last Admin: 08/29/18 18:14 Dose: 60 mls/hr Insulin Aspart (Novolog Vial Sliding Scale -) 1 vial SQ ACHS [facility]; Protocol Last Admin: 08/30/18 12:24 Dose: Not Given Loratadine (Claritin -) 10 mg PO DAILY [facility] Last Admin: 08/30/18 11:00 Dose: 10 mg Multivitamins/Minerals (Infuvite Adult -) 10 ml IV DAILY [facility] Last Admin: 08/29/18 18:14 Dose: 10 ml Pantoprazole Sodium (Protonix Iv) 40 mg IVPUSH DAILY [facility] Last Admin: 08/30/18 11:00 Dose: 40 mg Scopolamine HBr (Transderm-Scop -) 1 patch TD Q72H [facility] Last Admin: 08/29/18 11:50 Dose: 1 patch Thiamine HCl (Vitamin B1 -) 100 mg PO HS [facility] Last Admin: 08/29/18 22:18 Dose: 100 mg Trihexyphenidyl HCl (Artane -) 1 mg PO BID [facility] Last Admin: 08/30/18 11:00 Dose: 1 mg Valproate Sodium (Depakene -) 250 mg GT BID [facility] Last Admin: 08/30/18 11:00 Dose: 250 mg Zinc Sulfate (Orazinc -) 220 mg GT DAILY@0800 [facility] Last Admin: 08/30/18 08:00 Dose: 220 mg 62 year old gentleman with hx of CVA, Dementia, Hx of ETOH abuse, HLD who presented with AMS, Fevers and poor oral intake with encephlopathy/MRSA PNA/ Persistent fevers and hypernatremia. #Hypernatremia (free water deficit ~4L) in setting of persistent fevers #AMS/Encephlopathy #Fevers #MRSA PNA #Dementia with hx of CVA Continue gentle Hypotonic fluid infusion resume free water via NGT when tube feeds resumed continue Abx supportive care Thank you Gregorio Aldrich DO
[2018-08-30 17:13] LABS: MUMPS AB IGG CSF < 5.0 AU/mL (<=10.9)
--- NOTE | 2018-08-30 17:33 | PN ---
Progress Note (short form) - Note Progress Note: 62 year old male history of Dementia, alcohol abuse, storke, HLD . Patient was in [facility] and was brought to hospital as he was having mental status detioration. Compa has ct head showed cortical atrophy and found to have high grade fever and suspected to have NMS and dantrolene was given Patient has been having generalized rigidity and he was on antipsychotic medication before comign to hospital and was stopped. Patient csf was benign. He remained confused and do not open eyes, respond to painful stimuli. No acute disterss. Continue to spike fever. Patient wbc is coming donw. He seems to open eye and do not communicate NEUROLOGICAL EXAMINATION febrile upto 101.2 He laying in bed and no acute distress, not following command. withdraws to pain There is rigidity in upper and lower extrmeity. pupils reactive mild terminal neck stiffness( part of generalized rigidity) mri of brain is normal, two ct head were unremarkable Previous eeg showed multiple muscle artifact. Assessment/Plan 62 year old male history of alcohol abuse, dementia with behavior disturbance was on two antipsychotic medicaitons ( haldol and seroquel ) in [place]. Initial diagnosis was Neuroleptic malignant syndrome. He do have history of seizure and there has not been any twitcing or focal seizure activity since admission , he is on depakote 250 mg bid . 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 His mental status change due to multiple factor( hospitalization, septicemia,and Dementia) continue to spike fever and wbc is noraml. Plan: Treatment of fever as per ID, - For rigidity , continue artane 1 mg po/ng was added, no significant change, may consider increase the dose Thanking you so much, would continue to follow with primary Thanking you so much Toni Heart MD
[2018-08-30] MEDS: MULTIVIT INJ. ADULT COMBO WITH VIT K 1 COMBO 10 ML VIAL IV SCH (18:09)
[2018-08-30] MEDS: D5-1/2NS+40 MEQ KCL - 40 MEQ/1,000 ML INFUS.BAG IV SCH (18:09)
[2018-08-30] MEDS: COLLAGENASE CLOSTRIDIUM HIST. 30 GRAMS TUBE TP SCH (18:10)
[2018-08-30] MEDS ORDERED: VANCOMYCIN 1,250 MG in DEXTROSE 5%-WATER - 250 ML IVPB ONE (21:45)
[2018-08-30] MEDS ORDERED: PT OWN MED DRAWER 7, Y5N ONE (22:24)
[2018-08-30] MEDS: THIAMINE HCL 100 MG TABLET (FP) PO SCH (22:28)
[2018-08-30] MEDS: DONEPEZIL HCL 10 MG TABLET (FP) GT SCH (22:29)
[2018-08-31] MEDS: PIPERACILLIN/TAZOB 3.375 GM 3.375 GM in DEXTROSE 5%-WATER - 50 ML IVPB SCH ×3 (02:07→18:00)
[2018-08-31] MEDS ORDERED: ACETAMINOPHEN 325 MG SUPP.RECT PR ONE (02:09)
[2018-08-31] MEDS: ACETAMINOPHEN 650 MG SUPP.RECT PR PRN (06:52)
[2018-08-31] MEDS: INSULIN SLIDING SCALE (NOVOLOG) 1 VIAL SQ SCH ×4 (07:25→23:30)
[2018-08-31] MEDS: ZINC SULFATE 220 MG CAPSULE (FP) GT SCH (08:41)
[2018-08-31] MEDS: AMINO ACIDS/PROTEIN HYDROLYS 30 ML LIQUID.PKT PO SCH ×2 (08:41→19:01)
[2018-08-31] MEDS ORDERED: VANCOMYCIN HCL 1,500 MG in DEXTROSE 5%-WATER - 500 ML IVPB ONE (09:17)
--- NOTE | 2018-08-31 09:19 | PN ---
Physical Exam: SUBJECTIVE: Patient seen and examined at the bedside. informed that patient's rectal temp was 105. OBJECTIVE: awaiting todays labs he will need a cooling blanket and possible transfer back to ICU. discussed with ICU, no beds currently. Wll continue to manage with ice packs, will give Linezolid and meropenem. will order lactic acid and chest xray Vital Signs Period Temp Pulse Resp BP Sys/Cortes Pulse Ox Last 24 Hr 101.4 F-103.3 F 95-103 20-20 124-160/63-79 97 GENERAL: awake, opens eyes intermittently. mumbles a few words HEAD: Normal with no signs of trauma. has increased temporal wasting. EYES: PERRL, extraocular movements intact, sclera anicteric, conjunctiva clear. No ptosis. ENT: Ears normal, nares patent, oropharynx clear without exudates, moist mucous membranes - ngt feeds NECK: Trachea midline, full range of motion, supple. LUNGS: congested bilaterally anterior, wet cough HEART: Regular rate and rhythm ABDOMEN: Soft, nontender, nondistended, normoactive bowel sounds - possible peg tube placement once afebrile EXTREMITIES: no edema. right hip with evidence of deep tissue injury, left hip with large 6cm x 8cm pressure ulcer unstageable. healing unstegeable left heal pressure ulcer. NEUROLOGICAL: lethargic, at times more awake Laboratory Results - last 24 hr 08/30/18 08/30/18 08/30/18 11:45 18:14 21:21 WBC 12.1 H RBC 3.12 L Hgb 9.8 L Hct 29.1 L MCV 93.0 MCH 31.3 MCHC 33.7 RDW 18.3 H Plt Count 171 MPV 10.0 Absolute Neuts (auto) 11.1 H Neutrophils % 91.6 H Neutrophils % (Manual) 89.1 H Band Neutrophils % 0.0 Lymphocytes % 4.9 L Lymphocytes % (Manual) 5.9 L D Monocytes % 3.0 L Monocytes % (Manual) 5 D Eosinophils % 0.1 D Eosinophils % (Manual) 0.0 Basophils % 0.4 Basophils % (Manual) 0.0 Myelocytes % (Man) 0 Promyelocytes % (Man) 0 Blast Cells % (Manual) 0 Nucleated RBC % 0 Metamyelocytes 0 Hypochromia 0 Platelet Estimate Normal Polychromasia 0 Poikilocytosis 0 Anisocytosis 1+ Microcytosis 0 Macrocytosis 1+ Ovalocytes 1+ POC Glucometer 136 135 Active Medications Generic Name Dose Route Start Last Admin Trade Name Luz PRN Reason Stop Dose Admin Acetaminophen 650 mg 08/19/18 21:45 08/31/18 06:52 Tylenol Suppository - DE 650 mg Q6H PRN Administration FEVER Amino Acids 30 ml 08/29/18 17:30 08/31/18 08:41 Prosource No Carb Liquid Pkt PO 30 ml BID@0800,1730 ART Administration Ascorbic Acid 500 mg 08/18/18 14:59 08/30/18 10:00 Vitamin C - GT 500 mg DAILY ART Administration Aspirin 81 mg 08/01/18 10:00 08/26/18 10:15 Asa - PO 81 mg DAILY ART Administration Collagenase 1 applic 08/27/18 15:55 08/30/18 18:10 Santyl - TP 1 applic DAILY ART Administration Protocol Donepezil HCl 10 mg 08/18/18 14:59 08/30/18 22:29 Aricept - GT 10 mg HS ART Administration Doxycycline Hyclate 100 mg 08/21/18 18:00 08/30/18 18:10 Vibramycin - PO 100 mg BID@1000,1800 ART Administration Metronidazole 500 mg in 100 mls @ 100 mls/hr 08/28/18 18:00 08/31/18 02:06 Flagyl 500mg Premixed Ivpb - IVPB 100 mls/hr Q8H-IV ART Administration Piperacillin Sod/Tazobactam 50 mls @ 100 mls/hr 08/28/18 18:00 08/31/18 02:07 Sod 3.375 gm/ Dextrose IVPB 100 mls/hr Q8H-IV ART Administration Protocol Dextrose/Sodium Chloride 40 meq in 1,000 mls @ 60 mls/hr 08/29/18 15:30 08/30 18:09 D5-1/2ns+40 Meq Kcl - IV 60 mls/hr ASDIR ART Administration Vancomycin HCl 1,500 mg/ 500 mls @ 250 mls/hr 08/31/18 09:17 Dextrose IVPB 08/31/18 11:16 ONCE ONE Protocol Insulin Aspart 1 vial 08/13/18 11:00 08/31/18 07:25 Novolog Vial Sliding Scale - SQ 2 units ACHS ART Administration Protocol Loratadine 10 mg 08/22/18 13:45 08/30/18 11:00 Claritin - PO 10 mg DAILY ART Administration Multivitamins/Minerals 10 ml 08/29/18 14:15 08/30/18 18:09 Infuvite Adult - IV 10 ml DAILY ART Administration Pantoprazole Sodium 40 mg 08/29/18 11:15 08/30/18 11:00 Protonix Iv IVPUSH 40 mg DAILY ART Administration Scopolamine HBr 1 patch 08/23/18 12:00 08/29/18 11:50 Transderm-Scop - TD 1 patch Q72H RAT Administration Thiamine HCl 100 mg 08/07/18 22:00 08/30/18 22:28 Vitamin B1 - PO 100 mg HS ART Administration Trihexyphenidyl HCl 1 mg 08/28/18 22:00 08/30/18 23:00 Artane - PO 1 mg BID ART Administration Valproate Sodium 250 mg 08/18/18 22:00 08/30/18 22:28 Depakene - GT 250 mg BID ART Administration Zinc Sulfate 220 mg 08/18/18 15:00 08/31/18 08:41 Orazinc - GT 220 mg DAILY@0800 ART Administration ASSESSMENT/PLAN: Patient is a 62 year old male with history of dementia, prior alcohol abuse, CVA 's, and hyperlipidemia. He presented to the ED with an altered mental status, poor oral intake of oral foods and fluids. Patient was reportedly on haldol and seroquel and has been more lethargic with increased muscle rigidity from NH. ID: Sepsis Fevers of unknown origin, persist. WBC 32.5>21 > 12.5 tachycardia, high fevers continue to have fevers of unknown origin. imaging of abd/ct/chest does not explain fevers, no abscess. Negative for DVT. Blood culture + 2 bottles, will await final sensitivities Will give one dose of meropenem, Linezolid, repeat lactic and xray Neuro: Acute metabolic encephalopathy. Neuroleptic malignant syndrome/fevers Advanced dementia mental status waxes and wanes. At times alert, at times lethargic Neuro following. started on artane Vascular Large unstageable left hip wound, cleansed and santyl applied daily. Large left heel wound, healed unsteageable. santyl applied. This wound may be source of fevers. May need to be debrided. Applying Santyl Neuro: Seizure Disorder h/o CVA Schizophrenia Alzheimer's Dementia Shingles history On ASA 81mg On Valproate 250mg IV BID, Donepezil 10mg PO hs. on Artane bid GI elevated ast/alt, liver ultrasound ordered and reviewed hep panel ordered for peg tube placement once afebrile fen monitor electrolytes ngt feeds with vital 1.2 with uptitrate as tolerated full code. Disposition. peg tube placement once afebrile. Visit type - Emergency Visit Emergency Visit: Yes ED Registration Date: 07/28/18 Care time: The patient presented to the Emergency Department on the above date and was hospitalized for further evaluation of their emergent condition. - New Patient This patient is new to me today: No - Critical Care Critical Care patient: No - Discharge Referral Referred to [facility] Med P.C.: No
[2018-08-31] MEDS ORDERED: IBUPROFEN 800 MG/8 ML IJ IVPB ONE (09:26)
[2018-08-31 09:34] LABS: BASO % 0.4 % (0-2.0); HEMATOCRIT 28.7 % (35.4-49); HEMOGLOBIN 9.5 GM/dL (11.7-16.9); LYMPH % 3.8 % (8-40); MCH 30.7 pg (25.7-33.7); MCHC 33.2 g/dl (32.0-35.9); MEAN CELL VOLUME 92.5 fl (80-96); MEAN PLT VOLUME 10.4 fl (7.5-11.1); MONO % 0.9 % (3.8-10.2); NEUT % 94.9 % (42.8-82.8); PLATELET COUNT 152 K/MM3 (134-434); WHITE BLOOD COUNT 16.5 K/mm3 (4.0-10.0)
[2018-08-31] MEDS ORDERED: MEROPENEM 1 GM in DEXTROSE 5%-WATER - 250 ML IVPB ONE (09:36)
[2018-08-31] MEDS ORDERED: LINEZOLID 600 MG PREMIX BAG 600 MG/300 ML BAG IV ONE (09:37)
[2018-08-31 10:09] LABS: ALBUMIN 2.2 g/dl (3.4-5.0); ALK PHOS 165 U/L (45-117); ANION GAP 8 MMOL/L (8-16); BILIRUBIN,TOTAL 0.5 mg/dL (0.2-1); BLOOD UREA NITROGEN 12 mg/dL (7-18); CALCIUM 7.7 mg/dL (8.5-10.1); CHLORIDE 116 mmol/L (98-107); CO2 24 mmol/L (21-32); CREATININE 0.9 mg/dL (0.55-1.3); GLUCOSE,RANDOM 188 mg/dL (74-106); MAGNESIUM 1.9 mg/dL (1.8-2.4); POTASSIUM 3.9 mmol/L (3.5-5.1); SGOT/AST 24 U/L (15-37); SGPT/ALT 43 U/L (13-61); SODIUM 147 mmol/L (136-145); TOT PROT 5.7 g/dl (6.4-8.2)
[2018-08-31 10:10] LABS: HBSAG SCREEN Negative (Negative); HEP A AB, IGM Negative (Negative); HEP B CORE AB, TOT Negative (Negative)
[2018-08-31] MEDS ORDERED: PT OWN MED DRAWER 7, Y5N ONE ×2 (10:39→12:43)
[2018-08-31] MEDS: LORATADINE 10 MG TABLET PO SCH (10:41)
[2018-08-31] MEDS: VALPROATE SODIUM 250 MG/5 ML UNIT DOSE CUP GT SCH ×2 (10:41→22:27)
[2018-08-31] MEDS: ASPIRIN 81 MG CHEWABLE TABLETS PO SCH (10:41)
[2018-08-31] MEDS: ASCORBIC ACID 500 MG TABLET (FP) GT SCH (10:41)
[2018-08-31] MEDS: TRIHEXYPHENIDYL HCL 2 MG TABLET PO SCH ×2 (10:42→22:29)
[2018-08-31] MEDS: DOXYCYCLINE HYCLATE 100 MG CAPSULE PO SCH (10:42)
[2018-08-31] MEDS ORDERED: MEROPENEM 1 GM in DEXTROSE 5%-WATER 100 ML IVPB ONE (11:00)
[2018-08-31] MEDS: ACETAMINOPHEN 650 MG/20.3 ML ORAL SOLUTION (CUPS) GT PRN ×3 (11:01→19:02)
--- NOTE | 2018-08-31 11:02 | PN ---
Progress Note (short form) - Note Progress Note: Renal follow up for Hypernatremia Pt seen and examined at the bedside awake non-verbal febrile on NGT tube feeds Vital Signs Temperature 102 F H 08/31/18 06:52 Pulse Rate 101 H 08/31/18 02:00 Respiratory Rate 20 08/31/18 02:00 Blood Pressure 124/63 08/31/18 02:00 O2 Sat by Pulse Oximetry (%) 97 08/30/18 21:00 Intake & Output 08/28/18 08/29/18 08/30/18 08/31/18 23:59 23:59 23:59 23:59 Intake Total 1095 1080 1470 850 Balance 1095 1080 1470 850 NAD not alert NGT in place Neck supple RRR Course BS soft NT/ND no LE edema, clubbing or cyanosis CBC, BMP 08/31/18 09:00 08/31/18 09:00 Current Medications Acetaminophen (Tylenol Oral Solution -) 650 mg GT Q4H PRN PRN Reason: FEVER Amino Acids (Prosource No Carb Liquid Pkt) 30 ml PO BID@0800,1730 [facility] Last Admin: 08/31/18 08:41 Dose: 30 ml Ascorbic Acid (Vitamin C -) 500 mg GT DAILY ART Last Admin: 08/31/18 10:41 Dose: 500 mg Aspirin (Asa -) 81 mg PO DAILY ART Last Admin: 08/31/18 10:41 Dose: 81 mg Collagenase (Santyl -) 1 applic TP DAILY ART; Protocol Last Admin: 08/30/18 18:10 Dose: 1 applic Donepezil HCl (Aricept -) 10 mg GT HS [facility] Last Admin: 08/30/18 22:29 Dose: 10 mg Doxycycline Hyclate (Vibramycin -) 100 mg PO BID@1000,1800 ART Last Admin: 08/31/18 10:42 Dose: 100 mg Metronidazole (Flagyl 500mg Premixed Ivpb -) 500 mg in 100 mls @ 100 mls/hr IVPB Q8H-IV ART Last Admin: 08/31/18 02:06 Dose: 100 mls/hr Piperacillin Sod/Tazobactam (Sod 3.375 gm/ Dextrose) 50 mls @ 100 mls/hr IVPB Q8H-IV ART; Protocol Last Admin: 08/31/18 02:07 Dose: 100 mls/hr Meropenem 1 gm/ Dextrose 100 mls @ 200 mls/hr IVPB ONCE ONE Stop: 08/31/18 11:29 Insulin Aspart (Novolog Vial Sliding Scale -) 1 vial SQ ACHS [facility]; Protocol Last Admin: 08/31/18 07:25 Dose: 2 units Loratadine (Claritin -) 10 mg PO DAILY [facility] Last Admin: 08/31/18 10:41 Dose: 10 mg Multivitamins/Minerals (Infuvite Adult -) 10 ml IV DAILY [facility] Last Admin: 08/30/18 18:09 Dose: 10 ml Pantoprazole Sodium (Protonix Iv) 40 mg IVPUSH DAILY [facility] Last Admin: 08/30/18 11:00 Dose: 40 mg Scopolamine HBr (Transderm-Scop -) 1 patch TD Q72H [facility] Last Admin: 08/29/18 11:50 Dose: 1 patch Thiamine HCl (Vitamin B1 -) 100 mg PO HS [facility] Last Admin: 08/30/18 22:28 Dose: 100 mg Trihexyphenidyl HCl (Artane -) 1 mg PO BID [facility] Last Admin: 08/31/18 10:42 Dose: 1 mg Valproate Sodium (Depakene -) 250 mg GT BID [facility] Last Admin: 08/31/18 10:41 Dose: 250 mg Zinc Sulfate (Orazinc -) 220 mg GT DAILY@0800 [facility] Last Admin: 08/31/18 08:41 Dose: 220 mg 62 year old gentleman with hx of CVA, Dementia, Hx of ETOH abuse, HLD who presented with AMS, Fevers and poor oral intake with encephlopathy/MRSA PNA/ Persistent fevers and hypernatremia. #Hypernatremia (free water deficit ~4L) in setting of persistent fevers #AMS/Encephlopathy #Sepsis/Gram negative bacteremia #Lactic acidosis #Fevers #MRSA PNA #Dementia with hx of CVA Serum na stable give elevated lactic acid level, change IVF to isotonic saline x 24 hours increase free water via NGT Abx as per ID supportive care Thank you Gregorio Aldrich DO
[2018-08-31] MEDS: PANTOPRAZOLE SODIUM 40 MG VIAL IVPUSH SCH (12:30)
[2018-08-31] MEDS: SODIUM CHLORIDE 1,000 ML IV SCH (12:47)
[2018-08-31] MEDS: COLLAGENASE CLOSTRIDIUM HIST. 30 GRAMS TUBE TP SCH (15:00)
--- NOTE | 2018-08-31 15:21 | PN ---
Progress Note, Physician Chief Complaint: patient awake continued to spike high grade fever reached as high as 105 now 101 \blood cx results noted sensitivities noted repeat cx negative - Current Medication List Current Medications: Active Medications Acetaminophen (Tylenol Oral Solution -) 650 mg GT Q4H PRN PRN Reason: FEVER Last Admin: 08/31/18 15:07 Dose: 650 mg Amino Acids (Prosource No Carb Liquid Pkt) 30 ml PO BID@0800,1730 [facility] Last Admin: 08/31/18 08:41 Dose: 30 ml Ascorbic Acid (Vitamin C -) 500 mg GT DAILY ART Last Admin: 08/31/18 10:41 Dose: 500 mg Aspirin (Asa -) 81 mg PO DAILY ART Last Admin: 08/31/18 10:41 Dose: 81 mg Collagenase (Santyl -) 1 applic TP DAILY [facility]; Protocol Last Admin: 08/30/18 18:10 Dose: 1 applic Donepezil HCl (Aricept -) 10 mg GT HS [facility] Last Admin: 08/30/18 22:29 Dose: 10 mg Metronidazole (Flagyl 500mg Premixed Ivpb -) 500 mg in 100 mls @ 100 mls/hr IVPB Q8H-IV ART Last Admin: 08/31/18 02:06 Dose: 100 mls/hr Piperacillin Sod/Tazobactam (Sod 3.375 gm/ Dextrose) 50 mls @ 100 mls/hr IVPB Q8H-IV ART; Protocol Last Admin: 08/31/18 02:07 Dose: 100 mls/hr Sodium Chloride (Normal Saline -) 1,000 mls @ 75 mls/hr IV ASDIR [facility] Last Admin: 08/31/18 12:47 Dose: 75 mls/hr Vancomycin HCl 1,000 mg/ (Dextrose) 250 mls @ 166.667 mls/hr IVPB Q12H ART; Protocol Insulin Aspart (Novolog Vial Sliding Scale -) 1 vial SQ ACHS [facility]; Protocol Last Admin: 08/31/18 12:40 Dose: 2 units Loratadine (Claritin -) 10 mg PO DAILY [facility] Last Admin: 08/31/18 10:41 Dose: 10 mg Multivitamins/Minerals (Infuvite Adult -) 10 ml IV DAILY [facility] Last Admin: 08/30/18 18:09 Dose: 10 ml Pantoprazole Sodium (Protonix Iv) 40 mg IVPUSH DAILY [facility] Last Admin: 08/30/18 11:00 Dose: 40 mg Scopolamine HBr (Transderm-Scop -) 1 patch TD Q72H [facility] Last Admin: 08/29/18 11:50 Dose: 1 patch Thiamine HCl (Vitamin B1 -) 100 mg PO HS [facility] Last Admin: 08/30/18 22:28 Dose: 100 mg Trihexyphenidyl HCl (Artane -) 1 mg PO BID [facility] Last Admin: 08/31/18 10:42 Dose: 1 mg Valproate Sodium (Depakene -) 250 mg GT BID [facility] Last Admin: 08/31/18 10:41 Dose: 250 mg Zinc Sulfate (Orazinc -) 220 mg GT DAILY@0800 [facility] Last Admin: 08/31/18 08:41 Dose: 220 mg - Objective Vital Signs: Vital Signs Temperature 103.6 F H 08/31/18 12:00 Pulse Rate 120 H 08/31/18 10:00 Respiratory Rate 22 H 08/31/18 10:00 Blood Pressure 100/60 08/31/18 10:00 O2 Sat by Pulse Oximetry (%) 100 08/31/18 09:00 Constitutional: Yes: No Distress, Calm Cardiovascular: Yes: Regular Rate and Rhythm Respiratory: Yes: Regular, CTA Bilaterally Gastrointestinal: Yes: Normal Bowel Sounds, Soft, Other (ng tube in place) Musculoskeletal: Yes: WNL Extremities: Yes: Other (contracted) Neurological: Yes: Alert Psychiatric: Yes: Alert, Other Labs: CBC, BMP 08/31/18 09:00 08/31/18 09:00 INR, PTT INR 1.29 (0.83-1.09) H 07/29/18 05:15 Assessment/Plan also now patient is coughing and producing sputum Altered Mental Status r/o Neuroleptic Malignant Syndrome r/o Seizures Seizure Disorder h/o CVA Schizophrenia Alzheimer's Dementia drug reaction mrsa pneumonia gm negative bactermia plan will start patient on iv vanco continue zosyn and flagyl asp precautions rest as per the team
[2018-08-31] MEDS ORDERED: DEXTROSE 5%-WATER - 50 ML IVPB ONE (16:03)
[2018-08-31] MEDS ORDERED: PIPERACILLIN/TAZOBACTAM 3.375 GM VIAL IVPB ONE (16:03)
--- NOTE | 2018-08-31 17:09 | PN ---
Progress Note (short form) - Note Progress Note: PULM/CCM
[2018-08-31] MEDS: VANCOMYCIN 1 GRAM (PRE-DOCKED) 1,000 MG/250 ML BAG IVPB SCH (18:01)
[2018-08-31] MEDS: THIAMINE HCL 100 MG TABLET (FP) PO SCH (22:27)
[2018-08-31] MEDS: DONEPEZIL HCL 10 MG TABLET (FP) GT SCH (22:27)
[2018-08-31] MEDS: MULTIVIT INJ. ADULT COMBO WITH VIT K 1 COMBO 10 ML VIAL IV SCH (23:55)
[2018-09-01] MEDS ORDERED: PIPERACILLIN/TAZOBACTAM 3.375 GM VIAL IVPB ONE ×3 (01:08→17:44)
[2018-09-01] MEDS ORDERED: DEXTROSE 5%-WATER - 50 ML IVPB ONE ×3 (01:08→17:44)
[2018-09-01] MEDS: ACETAMINOPHEN 650 MG/20.3 ML ORAL SOLUTION (CUPS) GT PRN ×2 (01:52→17:51)
[2018-09-01] MEDS: PIPERACILLIN/TAZOB 3.375 GM 3.375 GM in DEXTROSE 5%-WATER - 50 ML IVPB SCH ×3 (02:51→18:54)
[2018-09-01] MEDS: VANCOMYCIN 1 GRAM (PRE-DOCKED) 1,000 MG/250 ML BAG IVPB SCH ×2 (04:03→16:08)
[2018-09-01] MEDS: INSULIN SLIDING SCALE (NOVOLOG) 1 VIAL SQ SCH ×4 (06:04→22:58)
[2018-09-01] MEDS: ZINC SULFATE 220 MG CAPSULE (FP) GT SCH (08:18)
[2018-09-01] MEDS: AMINO ACIDS/PROTEIN HYDROLYS 30 ML LIQUID.PKT PO SCH ×2 (08:19→17:50)
--- NOTE | 2018-09-01 10:31 | PN ---
Physical Exam: SUBJECTIVE: Patient seen and examined at the bedside. coughing this morning, about to be suctioned. OBJECTIVE: +blood cultures on 2 sets. fever curve improving possible peg placement tomorrow if remains afebrile will make npo tonight in preparation Vital Signs Period Temp Pulse Resp BP Sys/Cortes Pulse Ox Last 24 Hr 100.2 F-103.6 F 94-98 20-20 96-122/55-64 98 GENERAL: awake, opens eyes intermittently. mumbles a few words HEAD: Normal with no signs of trauma. has increased temporal wasting. EYES: PERRL, extraocular movements intact, sclera anicteric, conjunctiva clear. No ptosis. ENT: Ears normal, nares patent, oropharynx clear without exudates, moist mucous membranes - ngt feeds NECK: Trachea midline, full range of motion, supple. LUNGS: congested bilaterally anterior, wet cough - suctioning prn HEART: Regular rate and rhythm ABDOMEN: Soft, nontender, nondistended, normoactive bowel sounds - possible peg tube placement once afebrile EXTREMITIES: no edema. right hip with evidence of deep tissue injury, left hip with large 6cm x 8cm pressure ulcer unstageable. healing unstegeable left heel pressure ulcer. NEUROLOGICAL: lethargic, at times more awake Laboratory Results - last 24 hr 08/31/18 08/31/18 08/31/18 09:00 10:07 11:56 Neutrophils % (Manual) 95.0 H Band Neutrophils % 3.0 Lymphocytes % (Manual) 2.0 L D Monocytes % (Manual) 0 L D Eosinophils % (Manual) 0.0 Basophils % (Manual) 0.0 Myelocytes % (Man) 0 Promyelocytes % (Man) 0 Blast Cells % (Manual) 0 Metamyelocytes 0 POC Glucometer 194 Lactic Acid 2.6 H* 08/31/18 08/31/18 17:36 20:14 Neutrophils % (Manual) Band Neutrophils % Lymphocytes % (Manual) Monocytes % (Manual) Eosinophils % (Manual) Basophils % (Manual) Myelocytes % (Man) Promyelocytes % (Man) Blast Cells % (Manual) Metamyelocytes POC Glucometer 129 Lactic Acid 1.6 Active Medications Generic Name Dose Route Start Last Admin Trade Name Freq PRN Reason Stop Dose Admin Acetaminophen 650 mg 08/31/18 09:54 09/01/18 01:52 Tylenol Oral Solution - GT 650 mg Q4H PRN Administration FEVER Amino Acids 30 ml 08/29/18 17:30 09/01/18 08:19 Prosource No Carb Liquid Pkt PO 30 ml BID@0800,1730 ART Administration Ascorbic Acid 500 mg 08/18/18 14:59 08/31/18 10:41 Vitamin C - GT 500 mg DAILY ART Administration Aspirin 81 mg 08/01/18 10:00 08/31/18 10:41 Asa - PO 81 mg DAILY ART Administration Collagenase 1 applic 08/27/18 15:55 08/31/18 15:00 Santyl - TP 1 applic DAILY ART Administration Protocol Donepezil HCl 10 mg 08/18/18 14:59 08/31/18 22:27 Aricept - GT 10 mg HS ART Administration Metronidazole 500 mg in 100 mls @ 100 mls/hr 08/28/18 18:00 09/01/18 09:27 Flagyl 500mg Premixed Ivpb - IVPB 100 mls/hr Q8H-IV ART Administration Piperacillin Sod/Tazobactam 50 mls @ 100 mls/hr 08/28/18 18:00 09/01/18 09:27 Sod 3.375 gm/ Dextrose IVPB 100 mls/hr Q8H-IV ART Administration Protocol Sodium Chloride 1,000 mls @ 75 mls/hr 08/31/18 11:15 08/31/18 12:47 Normal Saline - IV 75 mls/hr ASDIR ATR Administration Vancomycin HCl 1,000 mg in 250 mls @ 166.667 mls/hr 08/31/18 16:30 09/01/18 04:03 Vancomycin (Pre-Docked) IVPB 166.667 mls/hr Q12H ART Administration Protocol Insulin Aspart 1 vial 08/13/18 11:00 09/01/18 06:04 Novolog Vial Sliding Scale - SQ Not Given ACHS ART Protocol Loratadine 10 mg 08/22/18 13:45 08/31/18 10:41 Claritin - PO 10 mg DAILY ART Administration Multivitamins/Minerals 10 ml 08/29/18 14:15 08/31/18 23:55 Infuvite Adult - IV 10 ml DAILY ART Administration Pantoprazole Sodium 40 mg 08/29/18 11:15 08/31/18 12:30 Protonix Iv IVPUSH 40 mg DAILY ART Administration Scopolamine HBr 1 patch 08/23/18 12:00 08/29/18 11:50 Transderm-Scop - TD 1 patch Q72H ART Administration Thiamine HCl 100 mg 08/07/18 22:00 08/31/18 22:27 Vitamin B1 - PO 100 mg HS ART Administration Trihexyphenidyl HCl 1 mg 08/28/18 22:00 08/31/18 22:29 Artane - PO 1 mg BID ART Administration Valproate Sodium 250 mg 08/18/18 22:00 08/31/18 22:27 Depakene - GT 250 mg BID ART Administration Zinc Sulfate 220 mg 08/18/18 15:00 09/01/18 08:18 Orazinc - GT 220 mg DAILY@0800 ART Administration ASSESSMENT/PLAN: Patient is a 62 year old male with history of dementia, prior alcohol abuse, CVA 's, and hyperlipidemia. He presented to the ED with an altered mental status, poor oral intake of oral foods and fluids. Patient was reportedly on haldol and seroquel and has been more lethargic with increased muscle rigidity from NH. ID: Sepsis/Bacteremia/mrsa pneumonia Fevers of unknown origin, tmax 102.4 WBC 32.5>21 > 12.5 > 16.5 tachycardia, high fevers Imaging of abd/ct/chest does not explain fevers, no abscess. Negative for DVT. Growing kleb in blood cultures. on Zosyn. ID following. Neuro: Acute metabolic encephalopathy. Neuroleptic malignant syndrome/fevers Advanced dementia mental status waxes and wanes. At times alert, at times lethargic Vascular Large unstageable left hip wound, cleansed and santyl applied daily. Large left heel wound, healed unsteageable. santyl applied. This wound may be source of fevers. May need to be debrided. Applying Santyl Neuro: Seizure Disorder h/o CVA Schizophrenia Alzheimer's Dementia Shingles history On ASA 81mg On Valproate 250mg IV BID, Donepezil 10mg PO hs. on Artane bid GI elevated ast/alt, liver ultrasound ordered and reviewed hep panel ordered for peg tube placement once afebrile fen monitor electrolytes ngt feeds with vital 1.2 with uptitrate as tolerated full code. Disposition. peg tube placement once afebrile. Visit type - Emergency Visit Emergency Visit: Yes ED Registration Date: 07/28/18 Care time: The patient presented to the Emergency Department on the above date and was hospitalized for further evaluation of their emergent condition. - New Patient This patient is new to me today: No - Critical Care Critical Care patient: No - Discharge Referral Referred to [facility] No
[2018-09-01] MEDS ORDERED: PT OWN MED DRAWER 7, Y5N ONE (10:38)
[2018-09-01 10:59] LABS: BASO % 0.4 % (0-2.0); EOS % 0.1 % (0-4.5); HEMOGLOBIN 8.9 GM/dL (11.7-16.9); LYMPH % 12.5 % (8-40); MCH 30.5 pg (25.7-33.7); MEAN CELL VOLUME 92.6 fl (80-96); MEAN PLT VOLUME 11.5 fl (7.5-11.1); MONO % 7.3 % (3.8-10.2); NEUT % 79.7 % (42.8-82.8); PLATELET COUNT 111 K/MM3 (134-434); RBC 2.91 M/mm3 (4.00-5.60); RDW 19.6 % (11.9-15.9); WHITE BLOOD COUNT 12.5 K/mm3 (4.0-10.0)
[2018-09-01] MEDS: LORATADINE 10 MG TABLET PO SCH (11:00)
[2018-09-01] MEDS: ASCORBIC ACID 500 MG TABLET (FP) GT SCH (11:00)
[2018-09-01] MEDS: TRIHEXYPHENIDYL HCL 2 MG TABLET PO SCH ×2 (11:00→22:39)
[2018-09-01] MEDS: VALPROATE SODIUM 250 MG/5 ML UNIT DOSE CUP GT SCH ×2 (11:00→22:38)
[2018-09-01] MEDS: ASPIRIN 81 MG CHEWABLE TABLETS PO SCH (11:00)
[2018-09-01] MEDS: PANTOPRAZOLE SODIUM 40 MG VIAL IVPUSH SCH (11:01)
[2018-09-01 11:40] LABS: ALK PHOS 124 U/L (45-117); ANION GAP 7 MMOL/L (8-16); BILIRUBIN,TOTAL 0.4 mg/dL (0.2-1); BLOOD UREA NITROGEN 15 mg/dL (7-18); CALCIUM 7.4 mg/dL (8.5-10.1); CHLORIDE 116 mmol/L (98-107); CO2 24 mmol/L (21-32); CREATININE 0.6 mg/dL (0.55-1.3); GLUCOSE,RANDOM 119 mg/dL (74-106); POTASSIUM 3.4 mmol/L (3.5-5.1); SGOT/AST 28 U/L (15-37); SGPT/ALT 37 U/L (13-61); SODIUM 146 mmol/L (136-145); TOT PROT 5.1 g/dl (6.4-8.2)
[2018-09-01] MEDS ORDERED: POTASSIUM CHLORIDE ORAL LIQUID 20 MEQ/15 ML GT ONE (11:56)
[2018-09-01] MEDS: SCOPOLAMINE HYDROBROMIDE 1 PATCH PATCH.TD72 TD SCH (12:34)
[2018-09-01 12:40] LABS: ANISOCYTOSIS 0; MACROCYTOSIS 0; PLATELET ESTIMATE DECREASED
--- NOTE | 2018-09-01 13:07 | PN ---
Progress Note, Physician History of Present Illness: continued to spike,but has been afebrile since early this morning clinically stable - Current Medication List Current Medications: Active Medications Acetaminophen (Tylenol Oral Solution -) 650 mg GT Q4H PRN PRN Reason: FEVER Last Admin: 09/01/18 01:52 Dose: 650 mg Amino Acids (Prosource No Carb Liquid Pkt) 30 ml PO BID@0800,1730 ART Last Admin: 09/01/18 08:19 Dose: 30 ml Ascorbic Acid (Vitamin C -) 500 mg GT DAILY ART Last Admin: 09/01/18 11:00 Dose: 500 mg Aspirin (Asa -) 81 mg PO DAILY ART Last Admin: 09/01/18 11:00 Dose: 81 mg Collagenase (Santyl -) 1 applic TP DAILY ART; Protocol Last Admin: 08/31/18 15:00 Dose: 1 applic Donepezil HCl (Aricept -) 10 mg GT HS [facility] Last Admin: 08/31/18 22:27 Dose: 10 mg Metronidazole (Flagyl 500mg Premixed Ivpb -) 500 mg in 100 mls @ 100 mls/hr IVPB Q8H-IV ART Last Admin: 09/01/18 09:27 Dose: 100 mls/hr Piperacillin Sod/Tazobactam (Sod 3.375 gm/ Dextrose) 50 mls @ 100 mls/hr IVPB Q8H-IV ART; Protocol Last Admin: 09/01/18 09:27 Dose: 100 mls/hr Sodium Chloride (Normal Saline -) 1,000 mls @ 75 mls/hr IV ASDIR [facility] Last Admin: 08/31/18 12:47 Dose: 75 mls/hr Vancomycin HCl (Vancomycin (Pre-Docked)) 1,000 mg in 250 mls @ 166.667 mls/hr IVPB Q12H ART; Protocol Last Admin: 09/01/18 04:03 Dose: 166.667 mls/hr Insulin Aspart (Novolog Vial Sliding Scale -) 1 vial SQ ACHS ART; Protocol Last Admin: 09/01/18 11:08 Dose: Not Given Loratadine (Claritin -) 10 mg PO DAILY [facility] Last Admin: 09/01/18 11:00 Dose: 10 mg Multivitamins/Minerals (Infuvite Adult -) 10 ml IV DAILY ART Last Admin: 08/31/18 23:55 Dose: 10 ml Pantoprazole Sodium (Protonix Iv) 40 mg IVPUSH DAILY [facility] Last Admin: 09/01/18 11:01 Dose: 40 mg Scopolamine HBr (Transderm-Scop -) 1 patch TD Q72H [facility] Last Admin: 09/01/18 12:34 Dose: 1 patch Thiamine HCl (Vitamin B1 -) 100 mg PO HS [facility] Last Admin: 08/31/18 22:27 Dose: 100 mg Trihexyphenidyl HCl (Artane -) 1 mg PO BID [facility] Last Admin: 09/01/18 11:00 Dose: 1 mg Valproate Sodium (Depakene -) 250 mg GT BID [facility] Last Admin: 09/01/18 11:00 Dose: 250 mg Zinc Sulfate (Orazinc -) 220 mg GT DAILY@0800 [facility] Last Admin: 09/01/18 08:18 Dose: 220 mg - Objective Vital Signs: Vital Signs Temperature 100.4 F H 09/01/18 11:58 Pulse Rate 92 H 09/01/18 10:00 Respiratory Rate 18 09/01/18 10:00 Blood Pressure 130/80 09/01/18 10:00 O2 Sat by Pulse Oximetry (%) 100 09/01/18 09:00 Constitutional: Yes: No Distress, Calm Cardiovascular: Yes: S1, S2 Respiratory: Yes: Regular, CTA Bilaterally Gastrointestinal: Yes: Normal Bowel Sounds, Soft, Other (ng tube in place) Musculoskeletal: Yes: WNL Extremities: Yes: Other Neurological: Yes: Alert, Other Psychiatric: Yes: Other Labs: CBC, BMP 09/01/18 10:25 09/01/18 10:25 INR, PTT INR 1.29 (0.83-1.09) H 07/29/18 05:15 Assessment/Plan also now patient is coughing and producing sputum Altered Mental Status r/o Neuroleptic Malignant Syndrome r/o Seizures Seizure Disorder h/o CVA Schizophrenia Alzheimer's Dementia drug reaction mrsa pneumonia gm negative bactermia plan continue current abx monitor vanco levels peg tube hydration nutrition rest as per the team
[2018-09-01] MEDS: COLLAGENASE CLOSTRIDIUM HIST. 30 GRAMS TUBE TP SCH (18:00)
[2018-09-01] MEDS: SODIUM CHLORIDE 1,000 ML IV SCH (20:57)
[2018-09-01] MEDS: THIAMINE HCL 100 MG TABLET (FP) PO SCH (22:38)
[2018-09-01] MEDS: MULTIVIT INJ. ADULT COMBO WITH VIT K 1 COMBO 10 ML VIAL IV SCH (22:40)
[2018-09-01] MEDS: DONEPEZIL HCL 10 MG TABLET (FP) GT SCH (22:40)
[2018-09-02] MEDS ORDERED: PIPERACILLIN/TAZOBACTAM 3.375 GM VIAL IVPB ONE ×3 (00:50→17:26)
[2018-09-02] MEDS ORDERED: DEXTROSE 5%-WATER - 50 ML IVPB ONE ×3 (00:51→17:26)
[2018-09-02] MEDS: PIPERACILLIN/TAZOB 3.375 GM 3.375 GM in DEXTROSE 5%-WATER - 50 ML IVPB SCH ×3 (01:42→17:45)
[2018-09-02] MEDS: VANCOMYCIN 1 GRAM (PRE-DOCKED) 1,000 MG/250 ML BAG IVPB SCH ×2 (04:01→17:42)
[2018-09-02] MEDS: INSULIN SLIDING SCALE (NOVOLOG) 1 VIAL SQ SCH ×4 (06:03→23:09)
[2018-09-02 08:23] LABS: BASO % 0.6 % (0-2.0); EOS % 0.1 % (0-4.5); LYMPH % 14.4 % (8-40); MCH 30.7 pg (25.7-33.7); MCHC 33.4 g/dl (32.0-35.9); MEAN CELL VOLUME 91.9 fl (80-96); MEAN PLT VOLUME 11.4 fl (7.5-11.1); MONO % 9.3 % (3.8-10.2); NEUT % 75.6 % (42.8-82.8); PLATELET COUNT 145 K/MM3 (134-434); RBC 2.61 M/mm3 (4.00-5.60); RDW 18.7 % (11.9-15.9); WHITE BLOOD COUNT 9.2 K/mm3 (4.0-10.0)
[2018-09-02 08:52] LABS: ALBUMIN 1.9 g/dl (3.4-5.0); ALK PHOS 99 U/L (45-117); ANION GAP 5 MMOL/L (8-16); BILIRUBIN,TOTAL 0.5 mg/dL (0.2-1); BLOOD UREA NITROGEN 12 mg/dL (7-18); CALCIUM 7.5 mg/dL (8.5-10.1); CHLORIDE 115 mmol/L (98-107); CO2 25 mmol/L (21-32); CREATININE 0.6 mg/dL (0.55-1.3); GLUCOSE,RANDOM 111 mg/dL (74-106); MAGNESIUM 1.9 mg/dL (1.8-2.4); POTASSIUM 3.2 mmol/L (3.5-5.1); SGOT/AST 26 U/L (15-37); SGPT/ALT 31 U/L (13-61); SODIUM 146 mmol/L (136-145)
[2018-09-02] MEDS: AMINO ACIDS/PROTEIN HYDROLYS 30 ML LIQUID.PKT PO SCH ×2 (08:52→17:44)
[2018-09-02] MEDS: ZINC SULFATE 220 MG CAPSULE (FP) GT SCH (08:52)
[2018-09-02 08:55] LABS: INR 1.21 (0.83-1.09); PROTHROMBIN TIME (PATIENT) 14.3 SEC (9.7-13.0)
[2018-09-02] MEDS: COLLAGENASE CLOSTRIDIUM HIST. 30 GRAMS TUBE TP SCH (10:52)
[2018-09-02] MEDS: PANTOPRAZOLE SODIUM 40 MG VIAL IVPUSH SCH (11:39)
[2018-09-02] MEDS: TRIHEXYPHENIDYL HCL 2 MG TABLET PO SCH ×2 (11:41→23:04)
[2018-09-02] MEDS: LORATADINE 10 MG TABLET PO SCH (11:43)
[2018-09-02] MEDS: ASCORBIC ACID 500 MG TABLET (FP) GT SCH (11:44)
[2018-09-02] MEDS ORDERED: ACETAMINOPHEN 650 MG SUPP.RECT PR ONE (12:13)
[2018-09-02] MEDS: VALPROATE SODIUM 250 MG/5 ML UNIT DOSE CUP GT SCH ×2 (12:20→23:05)
--- NOTE | 2018-09-02 12:28 | PN ---
Physical Exam: SUBJECTIVE: Patient seen and examined at the bedside. OBJECTIVE: for a peg tube insertion today, still with fevers but overall improved fever curve. discussed with ID. patient received ASA 81mg for past two days. Can still get PEG tube and will give 1 unit of platelets after. will monitor post peg placement for any signs of bleeding. After peg tube (and if cleared by IR), may start patient on jevity vs vital 1.2 feeds. to be discussed with dietary, although he is tolerating vital. Vital Signs Period Temp Pulse Resp BP Sys/Cortes Pulse Ox Last 24 Hr 99.2 F-101.2 F 89-119 20-20 109-130/62-80 100 GENERAL: awake, opens eyes intermittently. mumbles a few words HEAD: Normal with no signs of trauma. has increased temporal wasting. EYES: PERRL, extraocular movements intact, sclera anicteric, conjunctiva clear. No ptosis. ENT: Ears normal, nares patent, oropharynx clear without exudates, moist mucous membranes - ngt feeds NECK: Trachea midline, full range of motion, supple. LUNGS: congested bilaterally anterior, wet cough - suctioning prn HEART: Regular rate and rhythm ABDOMEN: Soft, nontender, nondistended, normoactive bowel sounds - possible peg tube placement once afebrile EXTREMITIES: no edema. right hip with evidence of deep tissue injury, left hip with large 6cm x 8cm pressure ulcer unstageable. healing unstegeable left heel pressure ulcer. NEUROLOGICAL: lethargic, at times more awake Laboratory Results - last 24 hr 09/01/18 09/02/18 09/02/18 10:25 07:45 07:45 WBC 9.2 RBC 2.61 L Hgb 8.0 L Hct 24.0 L MCV 91.9 MCH 30.7 MCHC 33.4 RDW 18.7 H Plt Count 145 D MPV 11.4 H Absolute Neuts (auto) 7.0 Neutrophils % 75.6 Neutrophils % (Manual) 77.0 Band Neutrophils % 2.0 Lymphocytes % 14.4 Lymphocytes % (Manual) 13.0 D Monocytes % 9.3 Monocytes % (Manual) 7 D Eosinophils % 0.1 Eosinophils % (Manual) 1.0 D Basophils % 0.6 Basophils % (Manual) 0.0 Myelocytes % (Man) 0 Promyelocytes % (Man) 0 Blast Cells % (Manual) 0 Nucleated RBC % 0 Metamyelocytes 0 Hypochromia 0 Platelet Estimate Decreased Polychromasia 0 Poikilocytosis 1+ Anisocytosis 0 Microcytosis 0 Macrocytosis 0 PT with INR INR Sodium 146 H Potassium 3.2 L Chloride 115 H Carbon Dioxide 25 Anion Gap 5 L BUN 12 Creatinine 0.6 Creat Clearance w eGFR > 60 Random Glucose 111 H Calcium 7.5 L Magnesium 1.9 Total Bilirubin 0.5 AST 26 ALT 31 Alkaline Phosphatase 99 Total Protein 5.0 L Albumin 1.9 L 09/02/18 07:45 WBC RBC Hgb Hct MCV MCH MCHC RDW Plt Count MPV Absolute Neuts (auto) Neutrophils % Neutrophils % (Manual) Band Neutrophils % Lymphocytes % Lymphocytes % (Manual) Monocytes % Monocytes % (Manual) Eosinophils % Eosinophils % (Manual) Basophils % Basophils % (Manual) Myelocytes % (Man) Promyelocytes % (Man) Blast Cells % (Manual) Nucleated RBC % Metamyelocytes Hypochromia Platelet Estimate Polychromasia Poikilocytosis Anisocytosis Microcytosis Macrocytosis PT with INR 14.30 H INR 1.21 H Sodium Potassium Chloride Carbon Dioxide Anion Gap BUN Creatinine Creat Clearance w eGFR Random Glucose Calcium Magnesium Total Bilirubin AST ALT Alkaline Phosphatase Total Protein Albumin Active Medications Generic Name Dose Route Start Last Admin Trade Name Luz PRN Reason Stop Dose Admin Acetaminophen 650 mg 08/31/18 09:54 09/01/18 17:51 Tylenol Oral Solution - GT 650 mg Q4H PRN Administration FEVER Amino Acids 30 ml 08/29/18 17:30 09/02/18 08:52 Prosource No Carb Liquid Pkt PO Not Given BID@0800,1730 ART Ascorbic Acid 500 mg 08/18/18 14:59 09/01/18 11:00 Vitamin C - GT 500 mg DAILY ART Administration Collagenase 1 applic 08/27/18 15:55 09/01/18 18:00 Santyl - TP 1 applic DAILY ART Administration Protocol Donepezil HCl 10 mg 08/18/18 14:59 09/01/18 22:40 Aricept - GT 10 mg HS ART Administration Metronidazole 500 mg in 100 mls @ 100 mls/hr 08/28/18 18:00 09/02/18 02:30 Flagyl 500mg Premixed Ivpb - IVPB 100 mls/hr Q8H-IV ART Administration Piperacillin Sod/Tazobactam 50 mls @ 100 mls/hr 08/28/18 18:00 09/02/18 01:42 Sod 3.375 gm/ Dextrose IVPB 100 mls/hr Q8H-IV ART Administration Protocol Sodium Chloride 1,000 mls @ 75 mls/hr 08/31/18 11:15 09/01/18 20:57 Normal Saline - IV Not Given ASDIR ART Vancomycin HCl 1,000 mg in 250 mls @ 166.667 mls/hr 08/31/18 16:30 09/02/18 04:01 Vancomycin (Pre-Docked) IVPB 166.667 mls/hr Q12H ART Administration Protocol Insulin Aspart 1 vial 08/13/18 11:00 09/02/18 06:03 Novolog Vial Sliding Scale - SQ Not Given ACHS RAT Protocol Loratadine 10 mg 08/22/18 13:45 09/01/18 11:00 Claritin - PO 10 mg DAILY ART Administration Multivitamins/Minerals 10 ml 08/29/18 14:15 09/01/18 22:40 Infuvite Adult - IV 10 ml DAILY ART Administration Pantoprazole Sodium 40 mg 08/29/18 11:15 09/01/18 11:01 Protonix Iv IVPUSH 40 mg DAILY ART Administration Scopolamine HBr 1 patch 08/23/18 12:00 09/01/18 12:34 Transderm-Scop - TD 1 patch Q72H ART Administration Thiamine HCl 100 mg 08/07/18 22:00 09/01/18 22:38 Vitamin B1 - PO 100 mg HS ATR Administration Trihexyphenidyl HCl 1 mg 08/28/18 22:00 09/01/18 22:39 Artane - PO 1 mg BID ART Administration Valproate Sodium 250 mg 08/18/18 22:00 09/01/18 22:38 Depakene - GT 250 mg BID ART Administration Zinc Sulfate 220 mg 08/18/18 15:00 09/02/18 08:52 Orazinc - GT Not Given DAILY@0800 [facility] ASSESSMENT/PLAN: Patient is a 62 year old male with history of dementia, prior alcohol abuse, CVA 's, and hyperlipidemia. He presented to the ED with an altered mental status, poor oral intake of oral foods and fluids. Patient was reportedly on haldol and seroquel and has been more lethargic with increased muscle rigidity from NH. ID: Sepsis/Bacteremia/mrsa pneumonia Fevers of unknown origin, tmax 101f WBC normalized Imaging of abd/ct/chest does not explain fevers, no abscess. Negative for DVT. Growing kleb in blood cultures. on Zosyn, Vanco, Flagyl. ID following. Neuro: Acute metabolic encephalopathy. Neuroleptic malignant syndrome/fevers Advanced dementia mental status waxes and wanes. At times alert, at times lethargic Vascular Large unstageable left hip wound, cleansed and santyl applied daily. Large left heel wound, healed unsteageable. santyl applied. Seen by vascular. Neuro: Seizure Disorder h/o CVA Schizophrenia Alzheimer's Dementia Advanced Dementia Shingles history On ASA 81mg On Valproate 250mg IV BID, Donepezil 10mg PO hs. on Artane bid GI elevated ast/alt, liver ultrasound ordered and reviewed hep panel ordered peg placed today. will get 1 unit of platelets after. fen monitor electrolytes ngt feeds with vital 1.2 with uptitrate as tolerated full code. Disposition. peg placed today. Visit type - Emergency Visit Emergency Visit: Yes ED Registration Date: 07/28/18 Care time: The patient presented to the Emergency Department on the above date and was hospitalized for further evaluation of their emergent condition. - New Patient This patient is new to me today: No - Critical Care Critical Care patient: No - Discharge Referral Referred to [facility] No
--- NOTE | 2018-09-02 14:10 | PN ---
Progress Note, Physician History of Present Illness: continues to spike fever wbc has normalized - Current Medication List Current Medications: Active Medications Acetaminophen (Tylenol Oral Solution -) 650 mg GT Q4H PRN PRN Reason: FEVER Last Admin: 09/01/18 17:51 Dose: 650 mg Amino Acids (Prosource No Carb Liquid Pkt) 30 ml PO BID@0800,1730 ART Last Admin: 09/02/18 08:52 Dose: Not Given Ascorbic Acid (Vitamin C -) 500 mg GT DAILY ART Last Admin: 09/01/18 11:00 Dose: 500 mg Collagenase (Santyl -) 1 applic TP DAILY ART; Protocol Last Admin: 09/01/18 18:00 Dose: 1 applic Donepezil HCl (Aricept -) 10 mg GT HS ART Last Admin: 09/01/18 22:40 Dose: 10 mg Metronidazole (Flagyl 500mg Premixed Ivpb -) 500 mg in 100 mls @ 100 mls/hr IVPB Q8H-IV ART Last Admin: 09/02/18 12:20 Dose: 100 mls/hr Piperacillin Sod/Tazobactam (Sod 3.375 gm/ Dextrose) 50 mls @ 100 mls/hr IVPB Q8H-IV ART; Protocol Last Admin: 09/02/18 12:20 Dose: 100 mls/hr Sodium Chloride (Normal Saline -) 1,000 mls @ 75 mls/hr IV ASDIR ART Last Admin: 09/01/18 20:57 Dose: Not Given Vancomycin HCl (Vancomycin (Pre-Docked)) 1,000 mg in 250 mls @ 166.667 mls/hr IVPB Q12H ART; Protocol Last Admin: 09/02/18 04:01 Dose: 166.667 mls/hr Insulin Aspart (Novolog Vial Sliding Scale -) 1 vial SQ ACHS ART; Protocol Last Admin: 09/02/18 12:31 Dose: Not Given Loratadine (Claritin -) 10 mg PO DAILY [facility] Last Admin: 09/01/18 11:00 Dose: 10 mg Multivitamins/Minerals (Infuvite Adult -) 10 ml IV DAILY ART Last Admin: 09/01/18 22:40 Dose: 10 ml Pantoprazole Sodium (Protonix Iv) 40 mg IVPUSH DAILY [facility] Last Admin: 09/01/18 11:01 Dose: 40 mg Scopolamine HBr (Transderm-Scop -) 1 patch TD Q72H [facility] Last Admin: 09/01/18 12:34 Dose: 1 patch Thiamine HCl (Vitamin B1 -) 100 mg PO HS [facility] Last Admin: 09/01/18 22:38 Dose: 100 mg Trihexyphenidyl HCl (Artane -) 1 mg PO BID [facility] Last Admin: 09/01/18 22:39 Dose: 1 mg Valproate Sodium (Depakene -) 250 mg GT BID [facility] Last Admin: 09/02/18 12:20 Dose: 250 mg Zinc Sulfate (Orazinc -) 220 mg GT DAILY@0800 [facility] Last Admin: 09/02/18 08:52 Dose: Not Given - Objective Vital Signs: Vital Signs Temperature 100.9 F H 09/02/18 12:00 Pulse Rate 92 H 09/02/18 12:00 Respiratory Rate 20 09/02/18 12:00 Blood Pressure 113/57 L 09/02/18 12:00 O2 Sat by Pulse Oximetry (%) 100 09/01/18 21:00 Constitutional: Yes: No Distress, Calm Cardiovascular: Yes: S1, S2 Respiratory: Yes: Regular, Poor Air Entry Gastrointestinal: Yes: Normal Bowel Sounds, Soft Musculoskeletal: Yes: WNL Extremities: Yes: Other (contracted) Neurological: Yes: Alert, Other Psychiatric: Yes: Other Labs: CBC, BMP 09/02/18 07:45 09/02/18 07:45 INR, PTT INR 1.21 (0.83-1.09) H 09/02/18 07:45 Assessment/Plan also now patient is coughing and producing sputum Altered Mental Status r/o Neuroleptic Malignant Syndrome r/o Seizures Seizure Disorder h/o CVA Schizophrenia Alzheimer's Dementia drug reaction mrsa pneumonia gm negative bactermia plan continue current abx monitor vanco levels peg tube awaited hydration nutrition rest as per the team
[2018-09-02] MEDS ORDERED: PT OWN MED DRAWER 7, Y5N ONE ×2 (17:25→22:44)
[2018-09-02] MEDS: MULTIVIT INJ. ADULT COMBO WITH VIT K 1 COMBO 10 ML VIAL IV SCH (19:59)
[2018-09-02] MEDS: SODIUM CHLORIDE 1,000 ML IV SCH (19:59)
[2018-09-02] MEDS: DONEPEZIL HCL 10 MG TABLET (FP) GT SCH (23:04)
[2018-09-02] MEDS: ACETAMINOPHEN 650 MG/20.3 ML ORAL SOLUTION (CUPS) GT PRN (23:05)
[2018-09-02] MEDS: THIAMINE HCL 100 MG TABLET (FP) PO SCH (23:05)
[2018-09-03] MEDS ORDERED: PIPERACILLIN/TAZOBACTAM 3.375 GM VIAL IVPB ONE ×3 (00:41→18:05)
[2018-09-03] MEDS ORDERED: DEXTROSE 5%-WATER - 50 ML IVPB ONE ×3 (00:41→18:06)
[2018-09-03] MEDS: PIPERACILLIN/TAZOB 3.375 GM 3.375 GM in DEXTROSE 5%-WATER - 50 ML IVPB SCH ×5 (02:31→19:07)
[2018-09-03] MEDS: VANCOMYCIN 1 GRAM (PRE-DOCKED) 1,000 MG/250 ML BAG IVPB SCH ×2 (04:30→16:44)
[2018-09-03 06:06] LABS: FIBROSIS SCORE. 0.22 (0.00-0.21); HCV ALPHA 2 MACRO CHART 115 mg/dL (110-276); HCV GGT 123 IU/L (0-65); NECROINFLAM. ACTIVITY GRADE A1-Minimal activity (.)
[2018-09-03] MEDS: INSULIN SLIDING SCALE (NOVOLOG) 1 VIAL SQ SCH ×3 (07:07→18:16)
[2018-09-03] MEDS: ACETAMINOPHEN 1000 MG/100 ML VIAL (NON FORMULARY) IVPB PRN (07:07)
[2018-09-03 07:42] LABS: BASO % 0.3 % (0-2.0); EOS % 0.3 % (0-4.5); HEMATOCRIT 23.9 % (35.4-49); HEMOGLOBIN 7.9 GM/dL (11.7-16.9); LYMPH % 13.4 % (8-40); MCH 30.9 pg (25.7-33.7); MCHC 33.2 g/dl (32.0-35.9); MEAN CELL VOLUME 92.9 fl (80-96); MEAN PLT VOLUME 10.9 fl (7.5-11.1); MONO % 8.3 % (3.8-10.2); NEUT % 77.7 % (42.8-82.8); PLATELET COUNT 189 K/MM3 (134-434); RBC 2.57 M/mm3 (4.00-5.60); WHITE BLOOD COUNT 9.3 K/mm3 (4.0-10.0)
[2018-09-03] MEDS: AMINO ACIDS/PROTEIN HYDROLYS 30 ML LIQUID.PKT PO SCH ×2 (08:56→18:16)
[2018-09-03] MEDS: ZINC SULFATE 220 MG CAPSULE (FP) GT SCH (08:56)
[2018-09-03 09:02] LABS: ALBUMIN 2.1 g/dl (3.4-5.0); ALK PHOS 93 U/L (45-117); ANION GAP 8 MMOL/L (8-16); BILIRUBIN,TOTAL 0.7 mg/dL (0.2-1); CALCIUM 7.8 mg/dL (8.5-10.1); CHLORIDE 117 mmol/L (98-107); CO2 23 mmol/L (21-32); CREATININE 0.5 mg/dL (0.55-1.3); GLUCOSE,RANDOM 119 mg/dL (74-106); POTASSIUM 3.1 mmol/L (3.5-5.1); SGPT/ALT 26 U/L (13-61); SODIUM 149 mmol/L (136-145); TOT PROT 5.2 g/dl (6.4-8.2)
[2018-09-03] MEDS: DEXTROSE 5%-WATER - 1,000 ML IV SCH ×2 (10:30→19:07)
--- NOTE | 2018-09-03 11:26 | PN ---
Progress Note (short form) - Note Progress Note: Renal follow up for Hypernatremia Pt seen and examined at the bedside awake non-verbal remains febrile s/p peg tube placement Vital Signs Temperature 101.1 F H 09/03/18 06:00 Pulse Rate 72 09/03/18 06:00 Respiratory Rate 18 09/03/18 06:00 Blood Pressure 111/64 09/03/18 06:00 O2 Sat by Pulse Oximetry (%) 100 09/02/18 21:00 Intake & Output 08/31/18 09/01/18 09/02/18 09/03/18 23:59 23:59 23:59 23:59 Intake Total 1700 2670 2975 Output Total 3 Balance 1700 2667 2975 NAD no LE edema, clubbing or cyanosis CBC, BMP 09/03/18 06:50 09/03/18 06:50 Current Medications Acetaminophen (Ofirmev Injection -) 1,000 mg IVPB Q6H PRN PRN Reason: PAIN LEVEL 7 - 10 Last Admin: 09/03/18 07:07 Dose: 1,000 mg Acetaminophen (Tylenol Oral Solution -) 650 mg GT Q6H PRN PRN Reason: FEVER Last Admin: 09/02/18 23:05 Dose: 650 mg Amino Acids (Prosource No Carb Liquid Pkt) 30 ml PO BID@0800,1730 ART Last Admin: 09/03/18 08:56 Dose: 30 ml Ascorbic Acid (Vitamin C -) 500 mg GT DAILY ART Last Admin: 09/02/18 11:44 Dose: Not Given Collagenase (Santyl -) 1 applic TP DAILY ART; Protocol Last Admin: 09/02/18 10:52 Dose: 1 applic Donepezil HCl (Aricept -) 10 mg GT HS ART Last Admin: 09/02/18 23:04 Dose: 10 mg Metronidazole (Flagyl 500mg Premixed Ivpb -) 500 mg in 100 mls @ 100 mls/hr IVPB Q8H-IV ART Last Admin: 09/03/18 01:59 Dose: 100 mls/hr Piperacillin Sod/Tazobactam (Sod 3.375 gm/ Dextrose) 50 mls @ 100 mls/hr IVPB Q8H-IV ART; Protocol Last Admin: 09/03/18 02:31 Dose: 100 mls/hr Vancomycin HCl (Vancomycin (Pre-Docked)) 1,000 mg in 250 mls @ 166.667 mls/hr IVPB Q12H [facility]; Protocol Last Admin: 09/03/18 04:30 Dose: 166.667 mls/hr Dextrose (D5w -) 1,000 mls @ 75 mls/hr IV Q13H [facility] Insulin Aspart (Novolog Vial Sliding Scale -) 1 vial SQ ACHS [facility]; Protocol Last Admin: 09/03/18 07:07 Dose: Not Given Loratadine (Claritin -) 10 mg PO DAILY [facility] Last Admin: 09/02/18 11:43 Dose: Not Given Multivitamins/Minerals (Infuvite Adult -) 10 ml IV DAILY [facility] Last Admin: 09/02/18 19:59 Dose: 10 ml Pantoprazole Sodium (Protonix Iv) 40 mg IVPUSH DAILY [facility] Last Admin: 09/02/18 11:39 Dose: 40 mg Scopolamine HBr (Transderm-Scop -) 1 patch TD Q72H [facility] Last Admin: 09/01/18 12:34 Dose: 1 patch Thiamine HCl (Vitamin B1 -) 100 mg PO HS [facility] Last Admin: 09/02/18 23:05 Dose: 100 mg Trihexyphenidyl HCl (Artane -) 1 mg PO BID [facility] Last Admin: 09/02/18 23:04 Dose: 1 mg Valproate Sodium (Depakene -) 250 mg GT BID [facility] Last Admin: 09/02/18 23:05 Dose: 250 mg Zinc Sulfate (Orazinc -) 220 mg GT DAILY@0800 [facility] Last Admin: 09/03/18 08:56 Dose: 220 mg 62 year old gentleman with hx of CVA, Dementia, Hx of ETOH abuse, HLD who presented with AMS, Fevers and poor oral intake with encephlopathy/MRSA PNA/ Persistent fevers and hypernatremia. #Hypernatremia (free water deficit ~4L) in setting of persistent fevers #AMS/Encephlopathy #Sepsis/Gram negative bacteremia #Lactic acidosis #Fevers #MRSA PNA #Dementia with hx of CVA BP stable, will discontinue NS start D5W for management of hypernatremia trend Na daily continue Abx as per ID supportive care Thank you Gregorio Aldrich DO
[2018-09-03] MEDS: LORATADINE 10 MG TABLET PO SCH (11:38)
[2018-09-03] MEDS: PANTOPRAZOLE SODIUM 40 MG VIAL IVPUSH SCH ×3 (11:38→12:47)
[2018-09-03] MEDS: ASCORBIC ACID 500 MG TABLET (FP) GT SCH (11:38)
[2018-09-03] MEDS: VALPROATE SODIUM 250 MG/5 ML UNIT DOSE CUP GT SCH ×2 (11:38→23:40)
[2018-09-03] MEDS ORDERED: PT OWN MED DRAWER 7, Y5N ONE (11:40)
[2018-09-03] MEDS: TRIHEXYPHENIDYL HCL 2 MG TABLET PO SCH ×2 (11:41→23:55)
[2018-09-03 13:13] LABS: BLOOD UREA NITROGEN 8 mg/dL (7-18); SGOT/AST 24 U/L (15-37)
--- NOTE | 2018-09-03 15:20 | PN ---
Progress Note, Physician - Current Medication List Current Medications: Active Medications Acetaminophen (Ofirmev Injection -) 1,000 mg IVPB Q6H PRN PRN Reason: PAIN LEVEL 7 - 10 Last Admin: 09/03/18 07:07 Dose: 1,000 mg Acetaminophen (Tylenol Oral Solution -) 650 mg GT Q6H PRN PRN Reason: FEVER Last Admin: 09/02/18 23:05 Dose: 650 mg Amino Acids (Prosource No Carb Liquid Pkt) 30 ml PO BID@0800,1730 [facility] Last Admin: 09/03/18 08:56 Dose: 30 ml Ascorbic Acid (Vitamin C -) 500 mg GT DAILY [facility] Last Admin: 09/03/18 11:38 Dose: 500 mg Collagenase (Santyl -) 1 applic TP DAILY [facility]; Protocol Last Admin: 09/02/18 10:52 Dose: 1 applic Donepezil HCl (Aricept -) 10 mg GT HS ART Last Admin: 09/02/18 23:04 Dose: 10 mg Piperacillin Sod/Tazobactam (Sod 3.375 gm/ Dextrose) 50 mls @ 100 mls/hr IVPB Q8H-IV [facility]; Protocol Last Admin: 09/03/18 12:48 Dose: 100 mls/hr Vancomycin HCl (Vancomycin (Pre-Docked)) 1,000 mg in 250 mls @ 166.667 mls/hr IVPB Q12H [facility]; Protocol Last Admin: 09/03/18 04:30 Dose: 166.667 mls/hr Dextrose (D5w -) 1,000 mls @ 75 mls/hr IV Q13H [facility] Insulin Aspart (Novolog Vial Sliding Scale -) 1 vial SQ ACHS [facility]; Protocol Last Admin: 09/03/18 12:22 Dose: Not Given Loratadine (Claritin -) 10 mg PO DAILY [facility] Last Admin: 09/03/18 11:38 Dose: 10 mg Multivitamins/Minerals (Infuvite Adult -) 10 ml IV DAILY [facility] Last Admin: 09/02/18 19:59 Dose: 10 ml Pantoprazole Sodium (Protonix Iv) 40 mg IVPUSH DAILY [facility] Last Admin: 09/03/18 12:47 Dose: 40 mg Scopolamine HBr (Transderm-Scop -) 1 patch TD Q72H [facility] Last Admin: 09/01/18 12:34 Dose: 1 patch Thiamine HCl (Vitamin B1 -) 100 mg PO HS [facility] Last Admin: 09/02/18 23:05 Dose: 100 mg Trihexyphenidyl HCl (Artane -) 1 mg PO BID [facility] Last Admin: 09/03/18 11:41 Dose: 1 mg Valproate Sodium (Depakene -) 250 mg GT BID [facility] Last Admin: 09/03/18 11:38 Dose: 250 mg Zinc Sulfate (Orazinc -) 220 mg GT DAILY@0800 [facility] Last Admin: 09/03/18 08:56 Dose: 220 mg - Objective Vital Signs: Vital Signs Temperature 99.6 F 09/03/18 11:51 Pulse Rate 92 H 09/03/18 11:51 Respiratory Rate 20 09/03/18 11:51 Blood Pressure 118/81 09/03/18 11:51 O2 Sat by Pulse Oximetry (%) 100 09/02/18 21:00 Labs: CBC, BMP 09/03/18 06:50 09/03/18 06:50 INR, PTT INR 1.21 (0.83-1.09) H 09/02/18 07:45
[2018-09-03] MEDS: COLLAGENASE CLOSTRIDIUM HIST. 30 GRAMS TUBE TP SCH ×2 (18:16→23:41)
--- NOTE | 2018-09-03 18:34 | PN ---
Progress Note, Physician - Current Medication List Current Medications: Active Medications Acetaminophen (Ofirmev Injection -) 1,000 mg IVPB Q6H PRN PRN Reason: PAIN LEVEL 7 - 10 Last Admin: 09/03/18 07:07 Dose: 1,000 mg Acetaminophen (Tylenol Oral Solution -) 650 mg GT Q6H PRN PRN Reason: FEVER Last Admin: 09/02/18 23:05 Dose: 650 mg Amino Acids (Prosource No Carb Liquid Pkt) 30 ml PO BID@0800,1730 [facility] Last Admin: 09/03/18 18:16 Dose: 30 ml Ascorbic Acid (Vitamin C -) 500 mg GT DAILY [facility] Last Admin: 09/03/18 11:38 Dose: 500 mg Collagenase (Santyl -) 1 applic TP DAILY [facility]; Protocol Last Admin: 09/03/18 18:16 Dose: 1 applic Donepezil HCl (Aricept -) 10 mg GT HS [facility] Last Admin: 09/02/18 23:04 Dose: 10 mg Piperacillin Sod/Tazobactam (Sod 3.375 gm/ Dextrose) 50 mls @ 100 mls/hr IVPB Q8H-IV [facility]; Protocol Last Admin: 09/03/18 12:48 Dose: 100 mls/hr Vancomycin HCl (Vancomycin (Pre-Docked)) 1,000 mg in 250 mls @ 166.667 mls/hr IVPB Q12H [facility]; Protocol Last Admin: 09/03/18 16:44 Dose: 166.667 mls/hr Dextrose (D5w -) 1,000 mls @ 75 mls/hr IV Q13H [facility] Last Admin: 09/03/18 10:30 Dose: Not Given Insulin Aspart (Novolog Vial Sliding Scale -) 1 vial SQ ACHS [facility]; Protocol Last Admin: 09/03/18 18:16 Dose: Not Given Loratadine (Claritin -) 10 mg PO DAILY [facility] Last Admin: 09/03/18 11:38 Dose: 10 mg Multivitamins/Minerals (Infuvite Adult -) 10 ml IV DAILY [facility] Last Admin: 09/02/18 19:59 Dose: 10 ml Pantoprazole Sodium (Protonix Iv) 40 mg IVPUSH DAILY [facility] Last Admin: 09/03/18 12:47 Dose: 40 mg Scopolamine HBr (Transderm-Scop -) 1 patch TD Q72H [facility] Last Admin: 09/01/18 12:34 Dose: 1 patch Thiamine HCl (Vitamin B1 -) 100 mg PO HS [facility] Last Admin: 09/02/18 23:05 Dose: 100 mg Trihexyphenidyl HCl (Artane -) 1 mg PO BID [facility] Last Admin: 09/03/18 11:41 Dose: 1 mg Valproate Sodium (Depakene -) 250 mg GT BID [facility] Last Admin: 09/03/18 11:38 Dose: 250 mg Zinc Sulfate (Orazinc -) 220 mg GT DAILY@0800 [facility] Last Admin: 09/03/18 08:56 Dose: 220 mg - Objective Vital Signs: Vital Signs Temperature 100.9 F H 09/03/18 14:45 Pulse Rate 98 H 09/03/18 14:45 Respiratory Rate 21 H 09/03/18 14:45 Blood Pressure 129/76 09/03/18 14:45 O2 Sat by Pulse Oximetry (%) 100 09/02/18 21:00 Constitutional: Yes: Other (contracted Male, noted to have rigors at time of exam) Eyes: Yes: Conjunctiva Clear, PERRL HENT: Yes: Atraumatic Neck: Yes: Supple Cardiovascular: Yes: Regular Rate and Rhythm Respiratory: Yes: Regular, Diminished Gastrointestinal: Yes: Soft, Other (PEG in situ) ...Rectal Exam: Yes: Deferred Musculoskeletal: Yes: Joint Stiffness, Muscle Weakness Extremities: Yes: Other (contracted) Edema: No Peripheral Pulses: Left Radial: 2+, Right Radial: 2+ Integumentary: Yes: Other (moist clammy skin) Neurological: Yes: Tremors Labs: CBC, BMP 09/03/18 06:50 09/03/18 06:50 INR, PTT INR 1.21 (0.83-1.09) H 09/02/18 07:45 - ....Imaging Other: Report Reviewed (abd Xray 09/03/2018 5pm: repeat xray of the abdomen following additional administration of oral contrast through the gastrostomy tube is needed. Abd -KUB 09/03/2018 NGT in stomach. gastrostomy tube is in the left abdomen contrast media within the colon is seen. Gas pattern appears non-specific and non-obstructive.) Problem List - Problems (1) PNA (pneumonia) Code(s): J18.9 - PNEUMONIA, UNSPECIFIED ORGANISM (2) Neuroleptic malignant syndrome Code(s): G21.0 - MALIGNANT NEUROLEPTIC SYNDROME (3) S/P percutaneous endoscopic gastrostomy (PEG) tube placement Code(s): Z93.1 - GASTROSTOMY STATUS (4) Seizure disorder Code(s): G40.909 - EPILEPSY, UNSP, NOT INTRACTABLE, WITHOUT STATUS EPILEPTICUS (5) Diabetes type 2, controlled Code(s): E11.9 - TYPE 2 DIABETES MELLITUS WITHOUT COMPLICATIONS (6) Abnormal liver function tests Code(s): R94.5 - ABNORMAL RESULTS OF LIVER FUNCTION STUDIES (7) Fever of unknown origin Code(s): R50.9 - FEVER, UNSPECIFIED Impression/Plan Impression/Plan: 62 year old male with history of dementia, prior alcohol abuse, CVA's, and hyperlipidemia. He presented to the ED with an altered mental status, poor oral intake of oral foods and fluids. Patient was reportedly on haldol and seroquel and has been more lethargic with increased muscle rigidity from NH. during hospital course pt noted to have chronic aspiration PNA and is s/p PEG . He continues to have persistent fever, blood w/ Kleb PNA and pt has developed DTI to left hip and buttocks ID: Sepsis/Bacteremia/mrsa pneumonia, Fevers of unknown origin, cont to trend WBC and temp curve Growing kleb in blood cultures. on Zosyn, Vanco, ID following. d/c Flagyl. Neuro:Acute metabolic encephalopathy, Neuroleptic malignant syndrome/fevers, Advanced dementia/seizure disorder freq neuro checks fall precautions pt is bed bound-Turn q2 On ASA 81mg On Valproate 250mg IV BID, Donepezil 10mg PO hs. on Artane bid DERM: Deep Tissue injury Large unstageable left hip wound, cleansed and santyl applied daily. Large left heel wound, healed unsteageable. santyl applied. followed by vascular. GI: abnl LFTs, chronic aspiration -trend LFTs -start feeds once PEG placement confirmed fen monitor electrolytes ngt feeds with vital 1.2 with uptitrate as tolerated full code. Disposition: Full code. Visit type - Emergency Visit Emergency Visit: Yes ED Registration Date: 07/28/18 Care time: The patient presented to the Emergency Department on the above date and was hospitalized for further evaluation of their emergent condition. - New Patient This patient is new to me today: No - Critical Care Critical Care patient: No - Discharge Referral Referred to [facility] No
[2018-09-03] MEDS ORDERED: POTASSIUM CHLORIDE TABS 10 MEQ TABLET.ER (FP) PO ONE (18:46)
[2018-09-03] MEDS: MULTIVIT INJ. ADULT COMBO WITH VIT K 1 COMBO 10 ML VIAL IV SCH (19:07)
[2018-09-03] MEDS ORDERED: POTASSIUM CHLORIDE ORAL LIQUID 20 MEQ/15 ML GT ONE (20:45)
[2018-09-03] MEDS: THIAMINE HCL 100 MG TABLET (FP) PO SCH (23:40)
[2018-09-03] MEDS: ACETAMINOPHEN 650 MG/20.3 ML ORAL SOLUTION (CUPS) GT PRN (23:41)
[2018-09-03] MEDS: DONEPEZIL HCL 10 MG TABLET (FP) GT SCH (23:41)
[2018-09-04] MEDS: INSULIN SLIDING SCALE (NOVOLOG) 1 VIAL SQ SCH ×5 (00:08→22:44)
[2018-09-04] MEDS: DEXTROSE 5%-WATER - 1,000 ML IV SCH (01:09)
[2018-09-04] MEDS ORDERED: PIPERACILLIN/TAZOBACTAM 3.375 GM VIAL IVPB ONE ×3 (01:14→17:29)
[2018-09-04] MEDS ORDERED: DEXTROSE 5%-WATER - 50 ML IVPB ONE ×3 (01:14→17:29)
[2018-09-04] MEDS: PIPERACILLIN/TAZOB 3.375 GM 3.375 GM in DEXTROSE 5%-WATER - 50 ML IVPB SCH ×3 (02:48→18:42)
[2018-09-04] MEDS: VANCOMYCIN 1 GRAM (PRE-DOCKED) 1,000 MG/250 ML BAG IVPB SCH ×2 (04:20→20:25)
[2018-09-04] MEDS ORDERED: SODIUM CHLORIDE 500 ML IV STA (07:04)
--- NOTE | 2018-09-04 07:14 | RAPID ---
Physical Examination Vital Signs: Vital Signs Temperature 100.9 F H 09/03/18 22:00 Pulse Rate 85 09/03/18 22:00 Respiratory Rate 15 09/03/18 22:00 Blood Pressure 124/71 09/03/18 22:00 O2 Sat by Pulse Oximetry (%) 97 09/03/18 21:00 Labs: CBC, BMP 09/03/18 06:50 09/03/18 06:50 Rapid Response - Rapid Response Assessment: rapid response called' patient qas desaturating to the 70's and was diaphoretic and tremulous initial vitals: BP 137/73 HR 122 95percent on room air; BGM 155 patient placed on non- rebreather plan: stat ABG, EKG, chest xray 500 cc bolus of NS
[2018-09-04 07:17] LABS: ALLENS TEST POSITIVE
[2018-09-04 07:20] LABS: ARTERIAL BLD GAS O2 SATURATION 95.1 % (90-98.9); ARTERIAL BLOOD GAS BASE EXCESS -0.5 meq/l (-2-2); ARTERIAL BLOOD GAS PCO2 29.4 mmHg (35-45); ARTERIAL BLOOD GAS PO2 72.4 mmHg (80-100); ARTERIAL BLOOD GAS pH 7.49 (7.35-7.45)
[2018-09-04] MEDS: ACETAMINOPHEN 1000 MG/100 ML VIAL (NON FORMULARY) IVPB PRN (07:25)
[2018-09-04] MEDS ORDERED: FUROSEMIDE 40 MG/4 ML INJECTABLE VIAL IVPUSH ONE (07:29)
--- NOTE | 2018-09-04 07:48 | PN ---
Progress Note, Physician History of Present Illness: 24 HR events -rapid response called at 7AM for hypoxia (O2 sat mid 70s) on 5L NS. Pt tachycardic (HR 112bpm, Temp 101.5, BP 143/77mmHg). PT with rigors and diaphoresis.Pt placed on NRB and started on Fluid bolus. - STAT CXR revealed mod pulm congestion. -pt remains NPO, NGT in use. Awaiting confirmation for PEG to be used STAT labs: WBC 9.3>>11.5; K 3.1 (40meq x 2 doses repletion ordered); -pt remains hypernatremic and hyperchloremic (Na 149, Cl 116); currently being followed by nephrology -phos 1.9, Mg 1.6 (repletion ordered) -BNP 878 -d-dimer 7530, CTA done--> negative for PE, small b/l pleural effusions - Current Medication List Current Medications: Active Medications Acetaminophen (Ofirmev Injection -) 1,000 mg IVPB Q6H PRN PRN Reason: PAIN LEVEL 7 - 10 Last Admin: 09/03/18 07:07 Dose: 1,000 mg Acetaminophen (Tylenol Oral Solution -) 650 mg GT Q6H PRN PRN Reason: FEVER Last Admin: 09/03/18 23:41 Dose: 650 mg Amino Acids (Prosource No Carb Liquid Pkt) 30 ml PO BID@0800,1730 [facility] Last Admin: 09/03/18 18:16 Dose: 30 ml Ascorbic Acid (Vitamin C -) 500 mg GT DAILY [facility] Last Admin: 09/03/18 11:38 Dose: 500 mg Collagenase (Santyl -) 1 applic TP DAILY [facility]; Protocol Last Admin: 09/03/18 23:41 Dose: 1 applic Donepezil HCl (Aricept -) 10 mg GT HS [facility] Last Admin: 09/03/18 23:41 Dose: 10 mg Furosemide (Lasix Injection -) 20 mg IVPUSH ONCE ONE Stop: 09/04/18 07:30 Piperacillin Sod/Tazobactam (Sod 3.375 gm/ Dextrose) 50 mls @ 100 mls/hr IVPB Q8H-IV [facility]; Protocol Last Admin: 09/04/18 02:48 Dose: 100 mls/hr Vancomycin HCl (Vancomycin (Pre-Docked)) 1,000 mg in 250 mls @ 166.667 mls/hr IVPB Q12H [facility]; Protocol Last Admin: 09/04/18 04:20 Dose: 166.667 mls/hr Dextrose (D5w -) 1,000 mls @ 75 mls/hr IV Q13H [facility] Last Admin: 09/04/18 01:09 Dose: Not Given Sodium Chloride (Normal Saline -) 500 mls @ 500 mls/hr IV ASDIR STA Stop: 09/04/18 08:03 Insulin Aspart (Novolog Vial Sliding Scale -) 1 vial SQ ACHS [facility]; Protocol Last Admin: 09/04/18 00:08 Dose: Not Given Loratadine (Claritin -) 10 mg PO DAILY [facility] Last Admin: 09/03/18 11:38 Dose: 10 mg Multivitamins/Minerals (Infuvite Adult -) 10 ml IV DAILY [facility] Last Admin: 09/03/18 19:07 Dose: 10 ml Pantoprazole Sodium (Protonix Iv) 40 mg IVPUSH DAILY [facility] Last Admin: 09/03/18 12:47 Dose: 40 mg Scopolamine HBr (Transderm-Scop -) 1 patch TD Q72H [facility] Last Admin: 09/01/18 12:34 Dose: 1 patch Thiamine HCl (Vitamin B1 -) 100 mg PO HS [facility] Last Admin: 09/03/18 23:40 Dose: 100 mg Trihexyphenidyl HCl (Artane -) 1 mg PO BID [facility] Last Admin: 09/03/18 23:55 Dose: 1 mg Valproate Sodium (Depakene -) 250 mg GT BID [facility] Last Admin: 09/03/18 23:40 Dose: 250 mg Zinc Sulfate (Orazinc -) 220 mg GT DAILY@0800 [facility] Last Admin: 09/03/18 08:56 Dose: 220 mg - Objective Vital Signs: Vital Signs Temperature 100.9 F H 09/03/18 22:00 Pulse Rate 85 09/03/18 22:00 Respiratory Rate 15 09/03/18 22:00 Blood Pressure 124/71 09/03/18 22:00 O2 Sat by Pulse Oximetry (%) 97 09/03/18 21:00 Constitutional: Yes: Calm, Pallor Eyes: Yes: Conjunctiva Clear, PERRL HENT: Yes: Atraumatic, Normocephalic Neck: Yes: Supple Cardiovascular: Yes: Tachycardia Respiratory: Yes: Rales, Rhonchi Gastrointestinal: Yes: Soft, Hypoactive Bowel Sounds, Other (PEG in situ) ...Rectal Exam: Yes: Deferred Genitourinary: Yes: Incontinence Musculoskeletal: Yes: Joint Stiffness, Muscle Weakness Extremities: Yes: Cool Edema: No Peripheral Pulses WNL: No Peripheral Pulses: Left Radial: 2+, Right Radial: 2+, Left Doralis Pedis: 1+, Right Dorsalis Pedis: 1+ Integumentary: Yes: WNL Wound/Incision: Yes: Other (LEft hip DTI, sacral DTI) Neurological: Yes: Alert, Other (bedbound non-verbal) Psychiatric: Yes: Alert Labs: CBC, BMP 09/03/18 06:50 09/03/18 06:50 INR, PTT INR 1.21 (0.83-1.09) H 09/02/18 07:45 - ....Imaging Cat Scan: Report Reviewed (CTA chest 09/04/2018 IMPRESSION: No definite CT evidence of pulmonary embolism. Evaluation of the lower lobe subsegmental and distal segmental vessels is somewhat limited due to respiratory motion artifact. In comparison to an abdomen CT study of 08/29/2018 note is made of increased bibasilar multisegment atelectasis. Development of very small bilateral pleural effusions is seen. In comparison to a chest CT exam of 2018 interval development of 1 cm right upper lobe and 0.5 cm right middle lobe rounded opacities are seen probably on the basis of atelectasis versus very small infiltrates. Correlate with follow-up CT to document resolution. Reported By: Earl Drake MD) Problem List - Problems (1) Neuroleptic malignant syndrome Assessment/Plan: continue Artane 1mg BID fever control with IV tylenol Code(s): G21.0 - MALIGNANT NEUROLEPTIC SYNDROME (2) S/P percutaneous endoscopic gastrostomy (PEG) tube placement Assessment/Plan: PEG tube placement confirmed and ok to use as per ID dept (LEONOR Shannon and Dr. Palacio) start vital 1.2 10ml, titrate 10ml/hr for goal 50ml/hr. d/c NGT Nutrition consult Code(s): Z93.1 - GASTROSTOMY STATUS (3) Seizure disorder Assessment/Plan: continue with depakote 250mg BID check depakote level in AM Code(s): G40.909 - EPILEPSY, UNSP, NOT INTRACTABLE, WITHOUT STATUS EPILEPTICUS (4) Diabetes type 2, controlled Assessment/Plan: insulin SS Code(s): E11.9 - TYPE 2 DIABETES MELLITUS WITHOUT COMPLICATIONS (5) Fever of unknown origin Assessment/Plan: wound/blood/sputum/urine cultures sent will discuss with ID change in Abx coverage Code(s): R50.9 - FEVER, UNSPECIFIED (6) Low hemoglobin and low hematocrit Assessment/Plan: trend H/H, goal hgb > 7.5, transfuse PRN continue MVI, thiamine and vitamin c Code(s): D64.9 - ANEMIA, UNSPECIFIED (7) Diarrhea Assessment/Plan: c.diff sent LR @ 75ml/hr x1L, switch to isotonic saline after 1L infusion is completed restart flagyl IV q8hrs Code(s): R19.7 - DIARRHEA, UNSPECIFIED (8) Sepsis Assessment/Plan: ID following Vanco/ Zosyn Vanco level at 3pm prior to 4pm dose cont to trend WBC and temp curve Code(s): A41.9 - SEPSIS, UNSPECIFIED ORGANISM (9) Electrolyte abnormality Assessment/Plan: Mag 1.6 today, 2gm ordered Phos 1.9, KPOHS 22mm ordered pt remains hypertremic and hyperchloremic, start free water bolus 250ml q8hrs K = 3.1, KCL 40meq now and 40meq at 5pm Code(s): E87.8 - OTH DISORDERS OF ELECTROLYTE AND FLUID BALANCE, NEC Impression/Plan Impression/Plan: Advanced dementia/seizure disorder: freq neuro checks fall precautions pt is bed bound-Turn q2 On ASA 81mg Donepezil 10mg PO hs. on Artane bid DERM: Deep Tissue injury Large unstageable left hip wound, cleansed and santyl applied daily. Large left heel wound, healed unsteageable. santyl applied. vascular (Dr. Zafar Nuñez) reconsulted for possible debdridement. Disposition: Full code. Visit type - Emergency Visit Emergency Visit: Yes ED Registration Date: 07/28/18 Care time: The patient presented to the Emergency Department on the above date and was hospitalized for further evaluation of their emergent condition. - New Patient This patient is new to me today: No - Critical Care Critical Care patient: No - Discharge Referral Referred to [facility] No
[2018-09-04 08:27] LABS: HEMATOCRIT 25.4 % (35.4-49); HEMOGLOBIN 8.5 GM/dL (11.7-16.9); MCH 30.7 pg (25.7-33.7); MCHC 33.3 g/dl (32.0-35.9); MEAN CELL VOLUME 92.1 fl (80-96); MEAN PLT VOLUME 10.3 fl (7.5-11.1); PLATELET COUNT 339 K/MM3 (134-434); RBC 2.75 M/mm3 (4.00-5.60); RDW 19.2 % (11.9-15.9); WHITE BLOOD COUNT 11.5 K/mm3 (4.0-10.0)
[2018-09-04] MEDS: LACTATED RINGERS SOLUTION 1,000 ML/1,000 ML INFUS.BAG IV SCH (08:51)
[2018-09-04 09:03] LABS: ALBUMIN 2.3 g/dl (3.4-5.0); ALK PHOS 94 U/L (45-117); ANION GAP 7 MMOL/L (8-16); BILIRUBIN,TOTAL 0.5 mg/dL (0.2-1); BLOOD UREA NITROGEN 7 mg/dL (7-18); CHLORIDE 116 mmol/L (98-107); CO2 25 mmol/L (21-32); CREATININE 0.7 mg/dL (0.55-1.3); GLUCOSE,RANDOM 142 mg/dL (74-106); MAGNESIUM 1.6 mg/dL (1.8-2.4); N-TERMINAL BNP 876.8 pg/ml (5-125); PHOSPHOROUS 1.9 mg/dL (2.5-4.9); POTASSIUM 3.1 mmol/L (3.5-5.1); SGOT/AST 20 U/L (15-37); SGPT/ALT 26 U/L (13-61); SODIUM 149 mmol/L (136-145); TOT PROT 5.8 g/dl (6.4-8.2)
[2018-09-04 09:49] LABS: ERYTHROCYTE SEDIMENTATION RATE 44 mm/hr (0-20)
--- NOTE | 2018-09-04 09:52 | EKG ---
Test Reason : Blood Pressure : / mmHG Vent. Rate : 115 BPM Atrial Rate : 115 BPM P-R Int : 146 ms QRS Dur : 084 ms QT Int : 380 ms P-R-T Axes : 040 020 083 degrees QTc Int : 525 ms POOR DATA QUALITY, INTERPRETATION MAY BE ADVERSELY AFFECTED SINUS TACHYCARDIA NONSPECIFIC T WAVE ABNORMALITY ABNORMAL ECG WHEN COMPARED WITH ECG OF 13-AUG-2018 10:40, ST NO LONGER DEPRESSED IN INFERIOR LEADS NONSPECIFIC T WAVE ABNORMALITY NO LONGER EVIDENT IN INFERIOR LEADS NONSPECIFIC T WAVE ABNORMALITY, WORSE IN LATERAL LEADS Confirmed by GLORIA ESPAÑA, ODESSA ([id number]) on 09/04/2018 9:51:38 AM Referred By: Confirmed By:ODESSA CASTRO MD
[2018-09-04] MEDS ORDERED: POTASSIUM CHLORIDE TABS 20 MEQ TABLET.ER (FP) PO ONE (10:00)
[2018-09-04] MEDS ORDERED: MAGNESIUM SULF 50% (8.12 MEQ/2 ML-1 GM VIAL) IVPB ONE (10:30)
[2018-09-04] MEDS ORDERED: POTASSIUM PHOSPHATE 22 MM in DEXTROSE 5%-WATER - 250 ML IVPB ONE (11:00)
[2018-09-04 11:02] LABS: URINE APPEARANCE CLOUDY; URINE BILIRUBIN NEGATIVE (<2.0 mg/dL); URINE COLOR AMBER; URINE GLUCOSE (UA) NEGATIVE (NEGATIVE); URINE KETONE NEGATIVE (NEGATIVE); URINE LEUK ESTERASE NEGATIVE (NEGATIVE); URINE NITRITE NEGATIVE (NEGATIVE); URINE PROTEIN NEGATIVE (NEGATIVE); URINE UROBILINOGEN NEGATIVE mg/dL (0.2-1.0)
[2018-09-04] MEDS ORDERED: PT OWN MED DRAWER 7, Y5N ONE ×2 (11:18→13:44)
[2018-09-04] MEDS: ASCORBIC ACID 500 MG TABLET (FP) GT SCH (11:20)
[2018-09-04] MEDS: ZINC SULFATE 220 MG CAPSULE (FP) GT SCH (11:20)
[2018-09-04] MEDS: VALPROATE SODIUM 250 MG/5 ML UNIT DOSE CUP GT SCH ×2 (11:21→22:44)
[2018-09-04] MEDS: LORATADINE 10 MG TABLET PO SCH (11:21)
[2018-09-04] MEDS: AMINO ACIDS/PROTEIN HYDROLYS 30 ML LIQUID.PKT PO SCH ×2 (11:22→17:30)
[2018-09-04] MEDS: TRIHEXYPHENIDYL HCL 2 MG TABLET PO SCH ×2 (11:22→22:45)
[2018-09-04] MEDS: PANTOPRAZOLE SODIUM 40 MG VIAL IVPUSH SCH (11:35)
[2018-09-04] MEDS ORDERED: POTASSIUM CHLORIDE ORAL LIQUID 20 MEQ/15 ML PO ONE (12:00)
[2018-09-04] MEDS ORDERED: POTASSIUM CHLORIDE ORAL LIQUID 20 MEQ/15 ML GT ONE ×2 (12:00→17:00)
--- NOTE | 2018-09-04 12:20 | PN ---
Progress Note (short form) - Note Progress Note: Renal follow up for Hypernatremia Pt seen and examined at the bedside on NRB s/p [employer] this am for hypoxia on LR now remains febrile Vital Signs Temperature 100.7 F H 09/04/18 09:50 Pulse Rate 83 09/04/18 11:05 Respiratory Rate 24 H 09/04/18 11:05 Blood Pressure 121/67 09/04/18 11:05 O2 Sat by Pulse Oximetry (%) 97 09/03/18 21:00 Intake & Output 09/01/18 09/02/18 09/03/18 09/04/18 23:59 23:59 23:59 23:59 Intake Total 2670 2975 1075 1400 Output Total 3 2 63 Balance 2667 2975 1073 1337 NAD no LE edema, clubbing or cyanosis CBC, BMP 09/04/18 07:35 09/04/18 07:35 Current Medications Acetaminophen (Tylenol Oral Solution -) 650 mg GT Q6H PRN PRN Reason: FEVER Last Admin: 09/03/18 23:41 Dose: 650 mg Amino Acids (Prosource No Carb Liquid Pkt) 30 ml PO BID@0800,1730 [facility] Last Admin: 09/04/18 11:22 Dose: 30 ml Ascorbic Acid (Vitamin C -) 500 mg GT DAILY [facility] Last Admin: 09/04/18 11:20 Dose: 500 mg Collagenase (Santyl -) 1 applic TP DAILY [facility]; Protocol Last Admin: 09/03/18 23:41 Dose: 1 applic Donepezil HCl (Aricept -) 10 mg GT HS [facility] Last Admin: 09/03/18 23:41 Dose: 10 mg Piperacillin Sod/Tazobactam (Sod 3.375 gm/ Dextrose) 50 mls @ 100 mls/hr IVPB Q8H-IV [facility]; Protocol Last Admin: 09/04/18 11:24 Dose: 100 mls/hr Vancomycin HCl (Vancomycin (Pre-Docked)) 1,000 mg in 250 mls @ 166.667 mls/hr IVPB Q12H [facility]; Protocol Last Admin: 09/04/18 04:20 Dose: 166.667 mls/hr Lactated Ringer's (Lactated Ringers Solution) 1,000 ml in 1,000 mls @ 75 mls/ hr IV ASDIR [facility] Last Admin: 09/04/18 08:51 Dose: 75 mls/hr Metronidazole (Flagyl 500mg Premixed Ivpb -) 500 mg in 100 mls @ 100 mls/hr IVPB Q8H-IV [facility] Last Admin: 09/04/18 11:23 Dose: 100 mls/hr Potassium Phosphate 22 mm/ (Dextrose) 257.3333 mls @ 62.5 mls/hr IVPB ONCE ONE Stop: 09/04/18 15:07 Insulin Aspart (Novolog Vial Sliding Scale -) 1 vial SQ ACHS [facility]; Protocol Last Admin: 09/04/18 07:25 Dose: 2 units Loratadine (Claritin -) 10 mg PO DAILY [facility] Last Admin: 09/04/18 11:21 Dose: 10 mg Multivitamins/Minerals (Infuvite Adult -) 10 ml IV DAILY [facility] Last Admin: 09/03/18 19:07 Dose: 10 ml Pantoprazole Sodium (Protonix Iv) 40 mg IVPUSH DAILY [facility] Last Admin: 09/04/18 11:35 Dose: 40 mg Potassium Chloride (Potassium Chloride Oral Liquid) 40 meq GT ONCE ONE Stop: 09/04/18 17:01 Scopolamine HBr (Transderm-Scop -) 1 patch TD Q72H [facility] Last Admin: 09/01/18 12:34 Dose: 1 patch Thiamine HCl (Vitamin B1 -) 100 mg PO HS [facility] Last Admin: 09/03/18 23:40 Dose: 100 mg Trihexyphenidyl HCl (Artane -) 1 mg PO BID [facility] Last Admin: 09/04/18 11:22 Dose: 1 mg Valproate Sodium (Depakene -) 250 mg GT BID [facility] Last Admin: 09/04/18 11:21 Dose: 250 mg Zinc Sulfate (Orazinc -) 220 mg GT DAILY@0800 [facility] Last Admin: 09/04/18 11:20 Dose: 220 mg 62 year old gentleman with hx of CVA, Dementia, Hx of ETOH abuse, HLD who presented with AMS, Fevers and poor oral intake with encephlopathy/MRSA PNA/ Persistent fevers and hypernatremia. #Hypernatremia (free water deficit ~4L) in setting of persistent fevers #AMS/Encephlopathy #Sepsis/Gram negative bacteremia #Lactic acidosis #Fevers #MRSA PNA #Dementia with hx of CVA Continue isotonic saline for now for hemodynamic support supplement K and Phos Continue Abx as per ID supportive care Thank you Gregorio Aldrich DO
[2018-09-04] MEDS: SCOPOLAMINE HYDROBROMIDE 1 PATCH PATCH.TD72 TD SCH (13:47)
[2018-09-04] MEDS: MULTIVIT INJ. ADULT COMBO WITH VIT K 1 COMBO 10 ML VIAL IV SCH (14:00)
--- NOTE | 2018-09-04 14:29 | PN ---
Progress Note, Physician History of Present Illness: events noted rapid response was called - Current Medication List Current Medications: Active Medications Acetaminophen (Tylenol Oral Solution -) 650 mg GT Q6H PRN PRN Reason: FEVER Last Admin: 09/03/18 23:41 Dose: 650 mg Amino Acids (Prosource No Carb Liquid Pkt) 30 ml PO BID@0800,1730 [facility] Last Admin: 09/04/18 11:22 Dose: 30 ml Ascorbic Acid (Vitamin C -) 500 mg GT DAILY [facility] Last Admin: 09/04/18 11:20 Dose: 500 mg Collagenase (Santyl -) 1 applic TP DAILY [facility]; Protocol Last Admin: 09/03/18 23:41 Dose: 1 applic Donepezil HCl (Aricept -) 10 mg GT HS [facility] Last Admin: 09/03/18 23:41 Dose: 10 mg Piperacillin Sod/Tazobactam (Sod 3.375 gm/ Dextrose) 50 mls @ 100 mls/hr IVPB Q8H-IV [facility]; Protocol Last Admin: 09/04/18 11:24 Dose: 100 mls/hr Vancomycin HCl (Vancomycin (Pre-Docked)) 1,000 mg in 250 mls @ 166.667 mls/hr IVPB Q12H [facility]; Protocol Last Admin: 09/04/18 04:20 Dose: 166.667 mls/hr Lactated Ringer's (Lactated Ringers Solution) 1,000 ml in 1,000 mls @ 75 mls/ hr IV ASDIR [facility] Last Admin: 09/04/18 08:51 Dose: 75 mls/hr Metronidazole (Flagyl 500mg Premixed Ivpb -) 500 mg in 100 mls @ 100 mls/hr IVPB Q8H-IV [facility] Last Admin: 09/04/18 11:23 Dose: 100 mls/hr Potassium Phosphate 22 mm/ (Dextrose) 257.3333 mls @ 62.5 mls/hr IVPB ONCE ONE Stop: 09/04/18 15:07 Insulin Aspart (Novolog Vial Sliding Scale -) 1 vial SQ ACHS [facility]; Protocol Last Admin: 09/04/18 12:47 Dose: 2 units Loratadine (Claritin -) 10 mg PO DAILY [facility] Last Admin: 09/04/18 11:21 Dose: 10 mg Multivitamins/Minerals (Infuvite Adult -) 10 ml IV DAILY [facility] Last Admin: 09/03/18 19:07 Dose: 10 ml Pantoprazole Sodium (Protonix Iv) 40 mg IVPUSH DAILY [facility] Last Admin: 09/04/18 11:35 Dose: 40 mg Potassium Chloride (Potassium Chloride Oral Liquid) 40 meq GT ONCE ONE Stop: 09/04/18 17:01 Scopolamine HBr (Transderm-Scop -) 1 patch TD Q72H [facility] Last Admin: 09/04/18 13:47 Dose: 1 patch Thiamine HCl (Vitamin B1 -) 100 mg PO HS [facility] Last Admin: 09/03/18 23:40 Dose: 100 mg Trihexyphenidyl HCl (Artane -) 1 mg PO BID [facility] Last Admin: 09/04/18 11:22 Dose: 1 mg Valproate Sodium (Depakene -) 250 mg GT BID [facility] Last Admin: 09/04/18 11:21 Dose: 250 mg Zinc Sulfate (Orazinc -) 220 mg GT DAILY@0800 [facility] Last Admin: 09/04/18 11:20 Dose: 220 mg - Objective Vital Signs: Vital Signs Temperature 100.7 F H 09/04/18 09:50 Pulse Rate 83 09/04/18 11:05 Respiratory Rate 24 H 09/04/18 11:05 Blood Pressure 121/67 09/04/18 11:05 O2 Sat by Pulse Oximetry (%) 97 09/03/18 21:00 Constitutional: Yes: Calm Cardiovascular: Yes: Regular Rate and Rhythm Respiratory: Yes: Regular, Poor Air Entry Gastrointestinal: Yes: Normal Bowel Sounds, Soft Musculoskeletal: Yes: WNL Extremities: Yes: WNL Neurological: Yes: Other Psychiatric: Yes: Other Labs: CBC, BMP 09/04/18 07:35 09/04/18 07:35 INR, PTT INR 1.21 (0.83-1.09) H 09/02/18 07:45 Assessment/Plan also now patient is coughing and producing sputum Altered Mental Status r/o Neuroleptic Malignant Syndrome r/o Seizures Seizure Disorder h/o CVA Schizophrenia Alzheimer's Dementia drug reaction mrsa pneumonia gm negative bactermia plan continue current abx monitor vanco levels peg tube awaited hydration nutrition rest as per the team monitor fevers
[2018-09-04 16:20] LABS: ARTERIAL BLOOD GAS BASE EXCESS 0.8 meq/l (-2-2); ARTERIAL BLOOD GAS PCO2 35.8 mmHg (35-45); ARTERIAL BLOOD GAS pH 7.45 (7.35-7.45)
[2018-09-04 16:32] LABS: ALLENS TEST POSITIVE; ARTERIAL BLD GAS O2 SATURATION 99.9 % (90-98.9)
[2018-09-04] MEDS: COLLAGENASE CLOSTRIDIUM HIST. 30 GRAMS TUBE TP SCH (18:17)
[2018-09-04] MEDS: THIAMINE HCL 100 MG TABLET (FP) PO SCH (22:44)
[2018-09-04] MEDS: DONEPEZIL HCL 10 MG TABLET (FP) GT SCH (22:45)
[2018-09-04] MEDS: ACETAMINOPHEN 650 MG/20.3 ML ORAL SOLUTION (CUPS) GT PRN (22:47)
[2018-09-05] MEDS ORDERED: DEXTROSE 5%-WATER - 50 ML IVPB ONE ×4 (01:29→18:19)
[2018-09-05] MEDS ORDERED: PIPERACILLIN/TAZOBACTAM 3.375 GM VIAL IVPB ONE ×4 (01:29→18:19)
[2018-09-05] MEDS: PIPERACILLIN/TAZOB 3.375 GM 3.375 GM in DEXTROSE 5%-WATER - 50 ML IVPB SCH ×3 (02:27→18:26)
[2018-09-05] MEDS: VANCOMYCIN 1 GRAM (PRE-DOCKED) 1,000 MG/250 ML BAG IVPB SCH ×2 (05:57→17:25)
[2018-09-05] MEDS: ACETAMINOPHEN 650 MG/20.3 ML ORAL SOLUTION (CUPS) GT PRN (07:08)
[2018-09-05 07:37] LABS: HEMATOCRIT 21.4 % (35.4-49); MCH 30.6 pg (25.7-33.7); MCHC 32.9 g/dl (32.0-35.9); MEAN PLT VOLUME 9.8 fl (7.5-11.1); PLATELET COUNT 296 K/MM3 (134-434); RDW 19.2 % (11.9-15.9); WHITE BLOOD COUNT 11.6 K/mm3 (4.0-10.0)
[2018-09-05 08:05] LABS: ALK PHOS 75 U/L (45-117); ANION GAP 6 MMOL/L (8-16); BILIRUBIN,TOTAL 0.3 mg/dL (0.2-1); BLOOD UREA NITROGEN 7 mg/dL (7-18); CALCIUM 7.6 mg/dL (8.5-10.1); CHLORIDE 119 mmol/L (98-107); CO2 26 mmol/L (21-32); CREATININE 0.6 mg/dL (0.55-1.3); GLUCOSE,RANDOM 112 mg/dL (74-106); PHOSPHOROUS 2.5 mg/dL (2.5-4.9); POTASSIUM 3.4 mmol/L (3.5-5.1); SGOT/AST 16 U/L (15-37); SGPT/ALT 21 U/L (13-61); SODIUM 151 mmol/L (136-145); TOT PROT 4.9 g/dl (6.4-8.2)
[2018-09-05] MEDS: INSULIN SLIDING SCALE (NOVOLOG) 1 VIAL SQ SCH ×4 (08:07→22:32)
[2018-09-05] MEDS: AMINO ACIDS/PROTEIN HYDROLYS 30 ML LIQUID.PKT PO SCH ×2 (08:11→19:05)
[2018-09-05] MEDS: ZINC SULFATE 220 MG CAPSULE (FP) GT SCH (09:10)
[2018-09-05] MEDS ORDERED: PT OWN MED DRAWER 7, Y5N ONE (09:59)
[2018-09-05] MEDS: ASCORBIC ACID 500 MG TABLET (FP) GT SCH (10:10)
[2018-09-05] MEDS: VALPROATE SODIUM 250 MG/5 ML UNIT DOSE CUP GT SCH ×2 (10:11→22:21)
[2018-09-05] MEDS: LORATADINE 10 MG TABLET PO SCH (10:11)
[2018-09-05] MEDS: PANTOPRAZOLE SODIUM 40 MG VIAL IVPUSH SCH (10:13)
[2018-09-05] MEDS: TRIHEXYPHENIDYL HCL 2 MG TABLET PO SCH ×2 (10:13→22:23)
[2018-09-05] MEDS: COLLAGENASE CLOSTRIDIUM HIST. 30 GRAMS TUBE TP SCH (10:27)
--- NOTE | 2018-09-05 12:39 | PN ---
Physical Exam: SUBJECTIVE: Patient seen and examined. He is awake and alert. He appears comfortable. OBJECTIVE: Vital Signs Period Temp Pulse Resp BP Sys/Cortes Pulse Ox Last 24 Hr 99.7 F-101.1 F 84-91 20-22 119-128/68-78 GENERAL: The patient is awake, alert, non-verbal, in no acute distress. LUNGS: Breath sounds equal, bilateral rhonchi, no accessory muscle use. HEART: Regular rate and rhythm, S1, S2 without murmur, rub or gallop. ABDOMEN: Soft, nondistended, normoactive bowel sounds, no guarding, no rebound, no hepatosplenomegaly, no masses. EXTREMITIES: 2+ pulses, warm, well-perfused, no edema. Laboratory Results - last 24 hr 08/30/18 09/04/18 09/04/18 09:45 12:45 16:08 WBC RBC Hgb Hct MCV MCH MCHC RDW Plt Count MPV Anticoagulation Therapy No Result Required. Puncture Site No Result Required. ABG pH 7.45 ABG pCO2 at Pt Temp 35.8 D ABG pO2 at Pt Temp 366.0 H* ABG HCO3 24.3 ABG O2 Sat (Measured) 99.9 H* ABG O2 Content 11.1 L ABG Base Excess 0.8 Geoffrey Test Positive O2 Delivery Device Nrb mask Oxygen Flow Rate 100 Vent Mode No Result Required. Vent Rate No Result Required. Mechanical Rate No Result Required. Pressure Support Vent No Result Required. Sodium Potassium Chloride Carbon Dioxide Anion Gap BUN Creatinine Creat Clearance w eGFR POC Glucometer 181 Random Glucose Calcium Phosphorus Magnesium Total Bilirubin AST ALT Alkaline Phosphatase Total Protein Albumin Vancomycin Pre-Dose Valproic Acid TB Test (QFT) Nil 0.06 TB Test (QFT) Mitogen 0.30 TB Test (QFT) Antigen 0.05 TB Test (QFT) Indeterminate TB Positive Criteria 09/04/18 09/04/18 09/04/18 17:46 18:13 22:38 WBC RBC Hgb Hct MCV MCH MCHC RDW Plt Count MPV Anticoagulation Therapy Puncture Site ABG pH ABG pCO2 at Pt Temp ABG pO2 at Pt Temp ABG HCO3 ABG O2 Sat (Measured) ABG O2 Content ABG Base Excess Geoffrey Test O2 Delivery Device Oxygen Flow Rate Vent Mode Vent Rate Mechanical Rate Pressure Support Vent Sodium Potassium Chloride Carbon Dioxide Anion Gap BUN Creatinine Creat Clearance w eGFR POC Glucometer 84 121 Random Glucose Calcium Phosphorus Magnesium Total Bilirubin AST ALT Alkaline Phosphatase Total Protein Albumin Vancomycin Pre-Dose 15.4 L Valproic Acid TB Test (QFT) Nil TB Test (QFT) Mitogen TB Test (QFT) Antigen TB Test (QFT) TB Positive Criteria 09/05/18 09/05/18 09/05/18 06:03 06:20 06:20 WBC 11.6 H RBC 2.30 L Hgb 7.0 L Hct 21.4 L D MCV 93.0 MCH 30.6 MCHC 32.9 RDW 19.2 H Plt Count 296 MPV 9.8 Anticoagulation Therapy Puncture Site ABG pH ABG pCO2 at Pt Temp ABG pO2 at Pt Temp ABG HCO3 ABG O2 Sat (Measured) ABG O2 Content ABG Base Excess Geoffrey Test O2 Delivery Device Oxygen Flow Rate Vent Mode Vent Rate Mechanical Rate Pressure Support Vent Sodium 151 H Potassium 3.4 L Chloride 119 H Carbon Dioxide 26 Anion Gap 6 L BUN 7 Creatinine 0.6 Creat Clearance w eGFR > 60 POC Glucometer 109 Random Glucose 112 H Calcium 7.6 L Phosphorus 2.5 Magnesium 2.0 Total Bilirubin 0.3 AST 16 ALT 21 Alkaline Phosphatase 75 Total Protein 4.9 L Albumin 2.0 L Vancomycin Pre-Dose Valproic Acid TB Test (QFT) Nil TB Test (QFT) Mitogen TB Test (QFT) Antigen TB Test (QFT) TB Positive Criteria 09/05/18 06:20 WBC RBC Hgb Hct MCV MCH MCHC RDW Plt Count MPV Anticoagulation Therapy Puncture Site ABG pH ABG pCO2 at Pt Temp ABG pO2 at Pt Temp ABG HCO3 ABG O2 Sat (Measured) ABG O2 Content ABG Base Excess Geoffrey Test O2 Delivery Device Oxygen Flow Rate Vent Mode Vent Rate Mechanical Rate Pressure Support Vent Sodium Potassium Chloride Carbon Dioxide Anion Gap BUN Creatinine Creat Clearance w eGFR POC Glucometer Random Glucose Calcium Phosphorus Magnesium Total Bilirubin AST ALT Alkaline Phosphatase Total Protein Albumin Vancomycin Pre-Dose Valproic Acid 21.3 L TB Test (QFT) Nil TB Test (QFT) Mitogen TB Test (QFT) Antigen TB Test (QFT) TB Positive Criteria Active Medications Generic Name Dose Route Start Last Admin Trade Name Freq PRN Reason Stop Dose Admin Acetaminophen 650 mg 09/02/18 20:56 09/05/18 07:08 Tylenol Oral Solution - GT 650 mg Q6H PRN Administration FEVER Amino Acids 30 ml 08/29/18 17:30 09/05/18 08:11 Prosource No Carb Liquid Pkt PO 30 ml BID@0800,1730 ART Administration Ascorbic Acid 500 mg 08/18/18 14:59 09/05/18 10:10 Vitamin C - GT 500 mg DAILY ART Administration Collagenase 1 applic 08/27/18 15:55 09/04/18 18:17 Santyl - TP 1 applic DAILY ART Administration Protocol Donepezil HCl 10 mg 08/18/18 14:59 09/04/18 22:45 Aricept - GT 10 mg HS ART Administration Piperacillin Sod/Tazobactam 50 mls @ 100 mls/hr 08/28/18 18:00 09/05/18 10:13 Sod 3.375 gm/ Dextrose IVPB 100 mls/hr Q8H-IV ART Administration Protocol Vancomycin HCl 1,000 mg in 250 mls @ 166.667 mls/hr 08/31/18 16:30 09/05/18 05:57 Vancomycin (Pre-Docked) IVPB 166.667 mls/hr Q12H ART Administration Protocol Lactated Ringer's 1,000 ml in 1,000 mls @ 75 mls/hr 09/04/18 08:00 09/04/18 08:51 Lactated Ringers Solution IV 75 mls/hr ASDIR ART Administration Metronidazole 500 mg in 100 mls @ 100 mls/hr 09/04/18 10:00 09/05/18 10:13 Flagyl 500mg Premixed Ivpb - IVPB 100 mls/hr Q8H-IV ART Administration Insulin Aspart 1 vial 08/13/18 11:00 09/05/18 08:07 Novolog Vial Sliding Scale - SQ Not Given ACHS ART Protocol Loratadine 10 mg 08/22/18 13:45 09/05/18 10:11 Claritin - PO 10 mg DAILY ART Administration Multivitamins/Minerals 10 ml 08/29/18 14:15 09/04/18 14:00 Infuvite Adult - IV Not Given DAILY ART Pantoprazole Sodium 40 mg 08/29/18 11:15 09/05/18 10:13 Protonix Iv IVPUSH 40 mg DAILY ART Administration Scopolamine HBr 1 patch 08/23/18 12:00 09/04/18 13:47 Transderm-Scop - TD 1 patch Q72H ART Administration Thiamine HCl 100 mg 08/07/18 22:00 09/04/18 22:44 Vitamin B1 - PO 100 mg HS ART Administration Trihexyphenidyl HCl 1 mg 08/28/18 22:00 09/05/18 10:13 Artane - PO 1 mg BID ART Administration Valproate Sodium 250 mg 08/18/18 22:00 09/05/18 10:11 Depakene - GT 250 mg BID ART Administration Zinc Sulfate 220 mg 08/18/18 15:00 09/05/18 09:10 Orazinc - GT 220 mg DAILY@0800 ART Administration ASSESSMENT/PLAN: This is a 62 year old man with a history of dementia, alcohol abuse, CVAs, hyperlipidemia who presented to the ED with poor oral intake and change in mental status. 1. Persistent fevers - ? neuroleptic malignant syndrome - ? MRSA/aspiration pneumonia - C. diff Ag and toxin negative 2. MRSA/aspiration pneumonia - Continue Zosyn, Vancomycin, Flagyl 3. Neuroleptic malignant syndrome - Continue Artane 4. Acute toxic metabolic encephalopathy - Resolved 5. Dementia - Continue Aricept 6. Schizophrenia 7. Dysphagia - s/p G-tube placement by IR on 09/02 8. Hypernatremia - Sodium increasing - Receiving free water via GT - Start IV 07/24 NS - Monitor electrolytes 9. Hypokalemia - Replete potassium 10. Seizure disorder - Continue Depakene 11. History of CVA - Hold aspirin in preparation for PEG placement 12. Hyperlipidemia 13. History of alcohol abuse 14. Hypomagnesemia - Improved 15. Hypophosphatemia - Improved 16. Anemia - Likely secondary to acute illness - Continue to monitor hgb and transfuse to keep >7.0 17. Thrombocytopenia - Improved 18. Nutrition - Change GT feeds to Jevity 1.5 - Continue MVI, ProSource 19. Unstageable pressure ulcers of left hip and left heel, stage I pressure ulcers of right hip and bilateral buttocks - Continue wound care Visit type - Emergency Visit Emergency Visit: Yes ED Registration Date: 07/28/18 Care time: The patient presented to the Emergency Department on the above date and was hospitalized for further evaluation of their emergent condition. - New Patient This patient is new to me today: No - Critical Care Critical Care patient: No - Discharge Referral Referred to [facility] Med [facility].C[facility] No
[2018-09-05] MEDS: MULTIVIT INJ. ADULT COMBO WITH VIT K 1 COMBO 10 ML VIAL IV SCH (12:43)
[2018-09-05] MEDS: LACTATED RINGERS SOLUTION 1,000 ML/1,000 ML INFUS.BAG IV SCH (12:46)
--- NOTE | 2018-09-05 15:04 | PN ---
Progress Note (short form) - Note Progress Note: Renal follow up for Hypernatremia Pt seen and examined at the bedside awake not alert was febrile overnight making urine on tube feeds, on IVF Vital Signs Temperature 100.8 F H 09/05/18 06:00 Pulse Rate 91 H 09/05/18 06:00 Respiratory Rate 20 09/05/18 06:00 Blood Pressure 128/72 09/05/18 06:00 O2 Sat by Pulse Oximetry (%) 100 09/04/18 10:15 Intake & Output 09/02/18 09/03/18 09/04/18 09/05/18 23:59 23:59 23:59 23:59 Intake Total 2975 1075 2810 Output Total 2 63 Balance 2975 1073 2747 NAD no LE edema, clubbing or cyanosis CBC, BMP 09/05/18 06:20 09/05/18 06:20 Current Medications Acetaminophen (Tylenol Oral Solution -) 650 mg GT Q6H PRN PRN Reason: FEVER Last Admin: 09/05/18 07:08 Dose: 650 mg Amino Acids (Prosource No Carb Liquid Pkt) 30 ml PO BID@0800,1730 ART Last Admin: 09/05/18 08:11 Dose: 30 ml Ascorbic Acid (Vitamin C -) 500 mg GT DAILY ART Last Admin: 09/05/18 10:10 Dose: 500 mg Collagenase (Santyl -) 1 applic TP DAILY ART; Protocol Last Admin: 09/04/18 18:17 Dose: 1 applic Donepezil HCl (Aricept -) 10 mg GT HS ART Last Admin: 09/04/18 22:45 Dose: 10 mg Piperacillin Sod/Tazobactam (Sod 3.375 gm/ Dextrose) 50 mls @ 100 mls/hr IVPB Q8H-IV ART; Protocol Last Admin: 09/05/18 10:13 Dose: 100 mls/hr Vancomycin HCl (Vancomycin (Pre-Docked)) 1,000 mg in 250 mls @ 166.667 mls/hr IVPB Q12H ART; Protocol Last Admin: 09/05/18 05:57 Dose: 166.667 mls/hr Lactated Ringer's (Lactated Ringers Solution) 1,000 ml in 1,000 mls @ 75 mls/ hr IV ASDIR ART Last Admin: 09/05/18 12:46 Dose: 75 mls/hr Metronidazole (Flagyl 500mg Premixed Ivpb -) 500 mg in 100 mls @ 100 mls/hr IVPB Q8H-IV [facility] Last Admin: 09/05/18 10:13 Dose: 100 mls/hr Insulin Aspart (Novolog Vial Sliding Scale -) 1 vial SQ ACHS [facility]; Protocol Last Admin: 09/05/18 12:45 Dose: Not Given Loratadine (Claritin -) 10 mg PO DAILY [facility] Last Admin: 09/05/18 10:11 Dose: 10 mg Multivitamins/Minerals (Infuvite Adult -) 10 ml IV DAILY [facility] Last Admin: 09/05/18 12:43 Dose: 10 ml Pantoprazole Sodium (Protonix Iv) 40 mg IVPUSH DAILY [facility] Last Admin: 09/05/18 10:13 Dose: 40 mg Scopolamine HBr (Transderm-Scop -) 1 patch TD Q72H [facility] Last Admin: 09/04/18 13:47 Dose: 1 patch Thiamine HCl (Vitamin B1 -) 100 mg PO HS [facility] Last Admin: 09/04/18 22:44 Dose: 100 mg Trihexyphenidyl HCl (Artane -) 1 mg PO BID [facility] Last Admin: 09/05/18 10:13 Dose: 1 mg Valproate Sodium (Depakene -) 250 mg GT BID [facility] Last Admin: 09/05/18 10:11 Dose: 250 mg Zinc Sulfate (Orazinc -) 220 mg GT DAILY@0800 [facility] Last Admin: 09/05/18 09:10 Dose: 220 mg 62 year old gentleman with hx of CVA, Dementia, Hx of ETOH abuse, HLD who presented with AMS, Fevers and poor oral intake with encephlopathy/MRSA PNA/ Persistent fevers and hypernatremia. #Hypernatremia (free water deficit ~4L) in setting of persistent fevers #AMS/Encephlopathy #Sepsis/Gram negative bacteremia #Lactic acidosis #Fevers #MRSA PNA #Dementia with hx of CVA BP/MAP at goal, will change IVF to hypotonic saline with KCL for management of hypernatremia continue free water via G-tube Trend electrolytes daily Supportive care Thank you Gregorio Aldrich DO
[2018-09-05] MEDS: SODIUM CHLORIDE 0.45%/POT 20 MEQ/1,000 ML INFUS.BAG IV SCH (16:26)
--- NOTE | 2018-09-05 16:40 | PN ---
Progress Note, Physician - Current Medication List Current Medications: Active Medications Acetaminophen (Tylenol Oral Solution -) 650 mg GT Q6H PRN PRN Reason: FEVER Last Admin: 09/05/18 07:08 Dose: 650 mg Amino Acids (Prosource No Carb Liquid Pkt) 30 ml PO BID@0800,1730 ART Last Admin: 09/05/18 08:11 Dose: 30 ml Ascorbic Acid (Vitamin C -) 500 mg GT DAILY ART Last Admin: 09/05/18 10:10 Dose: 500 mg Collagenase (Santyl -) 1 applic TP DAILY ART; Protocol Last Admin: 09/04/18 18:17 Dose: 1 applic Donepezil HCl (Aricept -) 10 mg GT HS ART Last Admin: 09/04/18 22:45 Dose: 10 mg Piperacillin Sod/Tazobactam (Sod 3.375 gm/ Dextrose) 50 mls @ 100 mls/hr IVPB Q8H-IV ART; Protocol Last Admin: 09/05/18 10:13 Dose: 100 mls/hr Vancomycin HCl (Vancomycin (Pre-Docked)) 1,000 mg in 250 mls @ 166.667 mls/hr IVPB Q12H ART; Protocol Last Admin: 09/05/18 05:57 Dose: 166.667 mls/hr Metronidazole (Flagyl 500mg Premixed Ivpb -) 500 mg in 100 mls @ 100 mls/hr IVPB Q8H-IV ART Last Admin: 09/05/18 10:13 Dose: 100 mls/hr Potassium Chloride/Sodium Chloride (1/2ns+20meq Kcl) 20 meq in 1,000 mls @ 83 mls/hr IV ASDIR ART Insulin Aspart (Novolog Vial Sliding Scale -) 1 vial SQ ACHS ART; Protocol Last Admin: 09/05/18 12:45 Dose: Not Given Loratadine (Claritin -) 10 mg PO DAILY [facility] Last Admin: 09/05/18 10:11 Dose: 10 mg Multivitamins/Minerals (Infuvite Adult -) 10 ml IV DAILY ART Last Admin: 09/05/18 12:43 Dose: 10 ml Pantoprazole Sodium (Protonix Iv) 40 mg IVPUSH DAILY [facility] Last Admin: 09/05/18 10:13 Dose: 40 mg Scopolamine HBr (Transderm-Scop -) 1 patch TD Q72H ART Last Admin: 09/04/18 13:47 Dose: 1 patch Thiamine HCl (Vitamin B1 -) 100 mg PO HS [facility] Last Admin: 09/04/18 22:44 Dose: 100 mg Trihexyphenidyl HCl (Artane -) 1 mg PO BID [facility] Last Admin: 09/05/18 10:13 Dose: 1 mg Valproate Sodium (Depakene -) 250 mg GT BID [facility] Last Admin: 09/05/18 10:11 Dose: 250 mg Zinc Sulfate (Orazinc -) 220 mg GT DAILY@0800 [facility] Last Admin: 09/05/18 09:10 Dose: 220 mg - Objective Vital Signs: Vital Signs Temperature 99.9 F H 09/05/18 14:48 Pulse Rate 87 09/05/18 14:48 Respiratory Rate 22 H 09/05/18 14:48 Blood Pressure 105/62 09/05/18 14:48 O2 Sat by Pulse Oximetry (%) 100 09/04/18 10:15 Labs: CBC, BMP 09/05/18 06:20 09/05/18 06:20 INR, PTT INR 1.21 (0.83-1.09) H 09/02/18 07:45
[2018-09-05 18:14] LABS: CK-MM 100 % (97-100)
[2018-09-05] MEDS: DONEPEZIL HCL 10 MG TABLET (FP) GT SCH (22:22)
[2018-09-05] MEDS: THIAMINE HCL 100 MG TABLET (FP) PO SCH (22:22)
[2018-09-06] MEDS ORDERED: PIPERACILLIN/TAZOBACTAM 3.375 GM VIAL IVPB ONE ×3 (00:47→17:18)
[2018-09-06] MEDS ORDERED: DEXTROSE 5%-WATER - 50 ML IVPB ONE ×3 (00:48→17:18)
[2018-09-06] MEDS: PIPERACILLIN/TAZOB 3.375 GM 3.375 GM in DEXTROSE 5%-WATER - 50 ML IVPB SCH ×3 (02:31→17:23)
[2018-09-06] MEDS: VANCOMYCIN 1 GRAM (PRE-DOCKED) 1,000 MG/250 ML BAG IVPB SCH ×2 (03:50→18:49)
[2018-09-06] MEDS: SODIUM CHLORIDE 0.45%/POT 20 MEQ/1,000 ML INFUS.BAG IV SCH (05:25)
[2018-09-06] MEDS: INSULIN SLIDING SCALE (NOVOLOG) 1 VIAL SQ SCH ×4 (06:06→23:11)
[2018-09-06 08:20] LABS: BASO % 0.3 % (0-2.0); EOS % 0.9 % (0-4.5); HEMATOCRIT 22.1 % (35.4-49); HEMOGLOBIN 7.3 GM/dL (11.7-16.9); LYMPH % 11.8 % (8-40); MCHC 32.9 g/dl (32.0-35.9); MEAN CELL VOLUME 94.4 fl (80-96); MEAN PLT VOLUME 9.6 fl (7.5-11.1); MONO % 7.5 % (3.8-10.2); NEUT % 79.5 % (42.8-82.8); PLATELET COUNT 331 K/MM3 (134-434); RBC 2.34 M/mm3 (4.00-5.60); RDW 20.3 % (11.9-15.9); WHITE BLOOD COUNT 10.7 K/mm3 (4.0-10.0)
[2018-09-06 09:13] LABS: ANION GAP 6 MMOL/L (8-16); BLOOD UREA NITROGEN 6 mg/dL (7-18); CALCIUM 7.3 mg/dL (8.5-10.1); CHLORIDE 114 mmol/L (98-107); CO2 25 mmol/L (21-32); CREATININE 0.5 mg/dL (0.55-1.3); GLUCOSE,RANDOM 121 mg/dL (74-106); MAGNESIUM 2.2 mg/dL (1.8-2.4); PHOSPHOROUS 1.9 mg/dL (2.5-4.9); POTASSIUM 3.7 mmol/L (3.5-5.1); SODIUM 144 mmol/L (136-145)
[2018-09-06] MEDS ORDERED: PT OWN MED DRAWER 7, Y5N ONE (10:16)
--- NOTE | 2018-09-06 10:23 | PN ---
Progress Note, Physician - Current Medication List Current Medications: Active Medications Acetaminophen (Tylenol Oral Solution -) 650 mg GT Q6H PRN PRN Reason: FEVER Last Admin: 09/05/18 07:08 Dose: 650 mg Amino Acids (Prosource No Carb Liquid Pkt) 30 ml PO DAILY [facility] Ascorbic Acid (Vitamin C -) 500 mg GT DAILY ART Last Admin: 09/05/18 10:10 Dose: 500 mg Collagenase (Santyl -) 1 applic TP DAILY ART; Protocol Last Admin: 09/05/18 10:27 Dose: 1 applic Donepezil HCl (Aricept -) 10 mg GT HS ART Last Admin: 09/05/18 22:22 Dose: 10 mg Piperacillin Sod/Tazobactam (Sod 3.375 gm/ Dextrose) 50 mls @ 100 mls/hr IVPB Q8H-IV ART; Protocol Last Admin: 09/06/18 02:31 Dose: 100 mls/hr Vancomycin HCl (Vancomycin (Pre-Docked)) 1,000 mg in 250 mls @ 166.667 mls/hr IVPB Q12H ART; Protocol Last Admin: 09/06/18 03:50 Dose: 166.667 mls/hr Metronidazole (Flagyl 500mg Premixed Ivpb -) 500 mg in 100 mls @ 100 mls/hr IVPB Q8H-IV ART Last Admin: 09/06/18 01:11 Dose: 100 mls/hr Potassium Chloride/Sodium Chloride (1/2ns+20meq Kcl) 20 meq in 1,000 mls @ 83 mls/hr IV ASDIR ART Last Admin: 09/06/18 05:25 Dose: 83 mls/hr Insulin Aspart (Novolog Vial Sliding Scale -) 1 vial SQ ACHS ART; Protocol Last Admin: 09/06/18 06:06 Dose: Not Given Lactobacillus Acidophilus (Bacid -) 1 tab PO DAILY ART Loratadine (Claritin -) 10 mg PO DAILY [facility] Last Admin: 09/05/18 10:11 Dose: 10 mg Multivitamins/Minerals (Infuvite Adult -) 10 ml IV DAILY ART Last Admin: 09/05/18 12:43 Dose: 10 ml Pantoprazole Sodium (Protonix Iv) 40 mg IVPUSH DAILY [facility] Last Admin: 09/05/18 10:13 Dose: 40 mg Scopolamine HBr (Transderm-Scop -) 1 patch TD Q72H [facility] Last Admin: 09/04/18 13:47 Dose: 1 patch Thiamine HCl (Vitamin B1 -) 100 mg PO HS [facility] Last Admin: 09/05/18 22:22 Dose: 100 mg Trihexyphenidyl HCl (Artane -) 1 mg PO BID [facility] Last Admin: 09/05/18 22:23 Dose: 1 mg Valproate Sodium (Depakene -) 250 mg GT BID [facility] Last Admin: 09/05/18 22:21 Dose: 250 mg Zinc Sulfate (Orazinc -) 220 mg GT DAILY@0800 [facility] Last Admin: 09/05/18 09:10 Dose: 220 mg - Objective Vital Signs: Vital Signs Temperature 99.6 F 09/06/18 09:55 Pulse Rate 85 09/06/18 09:55 Respiratory Rate 20 09/06/18 09:55 Blood Pressure 115/62 09/06/18 09:55 O2 Sat by Pulse Oximetry (%) 100 09/05/18 21:00 Labs: CBC, BMP 09/06/18 06:20 09/06/18 06:20 INR, PTT INR 1.21 (0.83-1.09) H 09/02/18 07:45
[2018-09-06] MEDS: ASCORBIC ACID 500 MG TABLET (FP) GT SCH (10:26)
[2018-09-06] MEDS: LORATADINE 10 MG TABLET PO SCH (10:26)
[2018-09-06] MEDS: VALPROATE SODIUM 250 MG/5 ML UNIT DOSE CUP GT SCH ×2 (10:26→22:42)
[2018-09-06] MEDS: ZINC SULFATE 220 MG CAPSULE (FP) GT SCH (10:26)
[2018-09-06] MEDS: LACTOBACILLUS ACIDOPHILUS 1 TABLET PO SCH (10:26)
[2018-09-06] MEDS: AMINO ACIDS/PROTEIN HYDROLYS 30 ML LIQUID.PKT PO SCH (10:26)
[2018-09-06] MEDS: PANTOPRAZOLE SODIUM 40 MG VIAL IVPUSH SCH (10:27)
[2018-09-06] MEDS: TRIHEXYPHENIDYL HCL 2 MG TABLET PO SCH ×2 (10:28→22:43)
--- NOTE | 2018-09-06 10:36 | PN ---
Progress Note (short form) - Note Progress Note: resting comfortable Current Medications Generic Name Dose Route Start Last Admin Trade Name Freq PRN Reason Stop Dose Admin Acetaminophen 650 mg 09/02/18 20:56 09/05/18 07:08 Tylenol Oral Solution - GT 650 mg Q6H PRN Administration FEVER Amino Acids 30 ml 09/06/18 10:00 09/06/18 10:26 Prosource No Carb Liquid Pkt PO 30 ml DAILY ART Administration Ascorbic Acid 500 mg 08/18/18 14:59 09/06/18 10:26 Vitamin C - GT 500 mg DAILY ART Administration Collagenase 1 applic 08/27/18 15:55 09/05/18 10:27 Santyl - TP 1 applic DAILY ART Administration Protocol Donepezil HCl 10 mg 08/18/18 14:59 09/05/18 22:22 Aricept - GT 10 mg HS ART Administration Piperacillin Sod/Tazobactam 50 mls @ 100 mls/hr 08/28/18 18:00 09/06/18 10:26 Sod 3.375 gm/ Dextrose IVPB 100 mls/hr Q8H-IV ART Administration Protocol Vancomycin HCl 1,000 mg in 250 mls @ 166.667 mls/hr 08/31/18 16:30 09/06/18 03:50 Vancomycin (Pre-Docked) IVPB 166.667 mls/hr Q12H ART Administration Protocol Metronidazole 500 mg in 100 mls @ 100 mls/hr 09/04/18 10:00 09/06/18 10:26 Flagyl 500mg Premixed Ivpb - IVPB 100 mls/hr Q8H-IV ART Administration Potassium Chloride/Sodium Chloride 20 meq in 1,000 mls @ 83 mls/hr 09/05/18 15 :15 09/06/18 05:25 1/2ns+20meq Kcl IV 83 mls/hr ASDIR ART Administration Insulin Aspart 1 vial 08/13/18 11:00 09/06/18 06:06 Novolog Vial Sliding Scale - SQ Not Given ACHS ART Protocol Lactobacillus Acidophilus 1 tab 09/06/18 10:00 09/06/18 10:26 Bacid - PO 1 tab DAILY ART Administration Loratadine 10 mg 08/22/18 13:45 09/06/18 10:26 Claritin - PO 10 mg DAILY ART Administration Multivitamins/Minerals 10 ml 08/29/18 14:15 09/05/18 12:43 Infuvite Adult - IV 10 ml DAILY ART Administration Pantoprazole Sodium 40 mg 08/29/18 11:15 09/06/18 10:27 Protonix Iv IVPUSH 40 mg DAILY ART Administration Scopolamine HBr 1 patch 08/23/18 12:00 09/04/18 13:47 Transderm-Scop - TD 1 patch Q72H ART Administration Thiamine HCl 100 mg 08/07/18 22:00 09/05/18 22:22 Vitamin B1 - PO 100 mg HS ART Administration Trihexyphenidyl HCl 1 mg 08/28/18 22:00 09/06/18 10:28 Artane - PO 1 mg BID ART Administration Valproate Sodium 250 mg 08/18/18 22:00 09/06/18 10:26 Depakene - GT 250 mg BID ART Administration Zinc Sulfate 220 mg 08/18/18 15:00 09/06/18 10:26 Orazinc - GT 220 mg DAILY@0800 ART Administration Last Vital Signs Temp Pulse Resp BP Pulse Ox 99.6 F 85 20 115/62 100 09/06/18 09:55 09/06/18 09:55 09/06/18 09:55 09/06/18 09:55 09/05/18 21:00 General NAD, +diaphoretic, withdraws to movement. non verbal CV S1 S2 RRR no murmur/rub/gallop Lungs CTA anteriorly Abdomen soft NT/ND +PEG Extremities contracted all extremities CBCD WBC 10.7 K/mm3 (4.0-10.0) H 09/06/18 06:20 RBC 2.34 M/mm3 (4.00-5.60) L 09/06/18 06:20 Hgb 7.3 GM/dL (11.7-16.9) L 09/06/18 06:20 Hct 22.1 % (35.4-49) L 09/06/18 06:20 MCV 94.4 fl (80-96) 09/06/18 06:20 MCHC 32.9 g/dl (32.0-35.9) 09/06/18 06:20 RDW 20.3 % (11.9-15.9) H 09/06/18 06:20 Plt Count 331 K/MM3 (134-434) 09/06/18 06:20 MPV 9.6 fl (7.5-11.1) 09/06/18 06:20 CMP Sodium 144 mmol/L (136-145) 09/06/18 06:20 Potassium 3.7 mmol/L (3.5-5.1) 09/06/18 06:20 Chloride 114 mmol/L (98-107) H 09/06/18 06:20 Carbon Dioxide 25 mmol/L (21-32) 09/06/18 06:20 Anion Gap 6 MMOL/L (8-16) L 09/06/18 06:20 BUN 6 mg/dL (7-18) L 09/06/18 06:20 Creatinine 0.5 mg/dL (0.55-1.3) L 09/06/18 06:20 Creat Clearance w eGFR > 60 (>60) 09/06/18 06:20 Calcium 7.3 mg/dL (8.5-10.1) L 09/06/18 06:20 Total Bilirubin 0.3 mg/dL (0.2-1) 09/05/18 06:20 AST 16 U/L (15-37) 09/05/18 06:20 ALT 21 U/L (13-61) 09/05/18 06:20 Alkaline Phosphatase 75 U/L (45-117) 09/05/18 06:20 Total Protein 4.9 g/dl (6.4-8.2) L 09/05/18 06:20 Albumin 2.0 g/dl (3.4-5.0) L 09/05/18 06:20 Microbiology 09/04/18 18:30 Hip - Left Gram Stain - Final 09/04/18 18:30 Hip - Left Wound Culture - Preliminary Presumptive Ps Aeruginosa Lactose Fermenting Neg Bacilli Staphylococcus Coagulase Neg 09/04/18 08:22 Blood - Peripheral Venous Blood Culture - Preliminary NO GROWTH OBTAINED AFTER 48 HOURS, INCUBATION TO CONTINUE FOR 3 DAYS. 09/04/18 07:35 Blood - Peripheral Venous Blood Culture - Preliminary NO GROWTH OBTAINED AFTER 48 HOURS, INCUBATION TO CONTINUE FOR 3 DAYS. 09/05/18 02:25 Stool Clostridium difficile Antigen (ANIYA) - Final 09/05/18 02:25 Stool Clostridium difficile Toxin Assay - Final 09/04/18 12:52 Sputum - Oropharynx Suctioned Sputum Gram Stain - Final 09/04/18 12:52 Sputum - Oropharynx Suctioned Sputum Sputum Culture - Preliminary Presumptive Ps Aeruginosa 09/04/18 09:45 Urine - Urine - Catheterized Urine Culture - Final NO GROWTH OBTAINED 08/29/18 21:15 Blood - Peripheral Venous Blood Culture - Final NO GROWTH AFTER 5 DAYS INCUBATION 08/29/18 20:50 Blood - Peripheral Venous Blood Culture - Final NO GROWTH AFTER 5 DAYS INCUBATION 08/28/18 14:20 Blood - Peripheral Venous Blood Culture - Final Klebsiella Pneumoniae 08/28/18 14:20 Blood - Peripheral Venous Blood Culture - Final Klebsiella Pneumoniae 08/28/18 17:15 Urine - Urine Clean Catch Urine Culture - Final NO GROWTH OBTAINED 08/19/18 17:00 Cerebral Spinal Fluid - Lumbar Puncture Gram Stain - Final 08/19/18 17:00 Cerebral Spinal Fluid - Lumbar Puncture CSF Culture - Final NO GROWTH AFTER 48 HOURS INCUBATION 08/13/18 11:30 Blood - Peripheral Venous Blood Culture - Final NO GROWTH AFTER 5 DAYS INCUBATION 08/13/18 11:18 Blood - Peripheral Venous Blood Culture - Final NO GROWTH AFTER 5 DAYS INCUBATION 08/12/18 13:36 Blood - Peripheral Venous Blood Culture - Final NO GROWTH AFTER 5 DAYS INCUBATION 08/12/18 13:30 Blood - Peripheral Venous Blood Culture - Final NO GROWTH AFTER 5 DAYS INCUBATION 08/10/18 15:00 Blood - Peripheral Venous Blood Culture - Final NO GROWTH AFTER 5 DAYS INCUBATION 08/13/18 21:30 Urine - Urine Clean Catch Urine Culture - Final NO GROWTH OBTAINED 08/09/18 13:55 Blood - Peripheral Venous Blood Culture - Final NO GROWTH AFTER 5 DAYS INCUBATION 08/10/18 16:30 Urine - Urine - Catheterized Urine Culture - Final NO GROWTH OBTAINED 07/30/18 16:30 Sputum - Oropharynx Suctioned Sputum Gram Stain - Final 07/30/18 16:30 Sputum - Oropharynx Suctioned Sputum Sputum Culture - Final Mr S Aureus Yeast Like Organism 07/28/18 15:36 Blood - Peripheral Venous Blood Culture - Final NO GROWTH AFTER 5 DAYS INCUBATION 07/28/18 15:25 Blood - Peripheral Venous Blood Culture - Final NO GROWTH AFTER 5 DAYS INCUBATION 07/28/18 15:50 Urine - Urine - Catheterized Urine Culture - Final NO GROWTH OBTAINED Assessment and PLan 62 year old man with a history of dementia, alcohol abuse, CVAs, hyperlipidemia who presented to the ED with poor oral intake and change in mental status. 1. Persistent fevers- NMS vs MSRA/aspiration PNA. Tm 100.4. fever curve coming down. leukocytosis improving. monitor. 2. MRSA/aspiration pneumonia-clinically improving. cont frequent suctioning. Continue Zosyn, Vancomycin, Flagyl 3. Klebsiella bacteremia- repeat Cx negative. parra-sensitive. cont zosyn. will need Colonoscopy in the future to r/o malignancy as has high incidence with colorectal malignancy 4. Neuroleptic malignant syndrome- Continue Artane. neurology on board 5. Acute toxic metabolic encephalopathy- as per RN more verbal today (grunting today) diaphoretic is baseline. 6. Dementia- Continue Aricept 7. Schizophrenia 8. Dysphagia- s/p G-tube placement by IR on 09/02 tolerating tube feeds 9. Hypernatremia- due to dehydration. now resolved. will d/c IVF and cont flushes per PEG tube. monitor 10. Hypokalemia-KCl via peg 11. Seizure disorder- Continue Depakene 12. History of CVA- ASA was on hold for PEG. will re-start at this time. 13. Hyperlipidemia 14. History of alcohol abuse 15. Hypomagnesemia- Improved 16. Hypophosphatemia- Improved 17. Anemia- Likely secondary to acute illness. no indication for transfusion at this time 18. Thrombocytopenia- Improved 19. Unstageable pressure ulcers of left hip and left heel, stage I pressure ulcers of right hip and bilateral buttocks- Continue wound care 20.DVT ppx- will start hep sq. Visit type - Emergency Visit Emergency Visit: Yes ED Registration Date: 07/28/18 Care time: The patient presented to the Emergency Department on the above date and was hospitalized for further evaluation of their emergent condition. - New Patient This patient is new to me today: Yes Date on this admission: 09/06/18 - Critical Care Critical Care patient: No - Discharge Referral Referred to [facility] Med P.C.: No
[2018-09-06] MEDS: MULTIVIT INJ. ADULT COMBO WITH VIT K 1 COMBO 10 ML VIAL IV SCH (10:53)
[2018-09-06] MEDS: ASPIRIN 81 MG CHEWABLE TABLETS PEG SCH (12:11)
[2018-09-06] MEDS: COLLAGENASE CLOSTRIDIUM HIST. 30 GRAMS TUBE TP SCH (12:12)
[2018-09-06] MEDS: HEPARIN NA (PORCINE) 5,000 UNITS/ML 1ML VIAL SQ SCH ×2 (13:04→22:42)
--- NOTE | 2018-09-06 13:45 | PN ---
Progress Note (short form) - Note Progress Note: Renal follow up for Hypernatremia Pt seen and examined at the bedside awake not alert off IVF, on tube feeds Vital Signs Temperature 99.6 F 09/06/18 09:55 Pulse Rate 85 09/06/18 09:55 Respiratory Rate 20 09/06/18 09:55 Blood Pressure 115/62 09/06/18 09:55 O2 Sat by Pulse Oximetry (%) 100 09/05/18 21:00 Intake & Output 09/03/18 09/04/18 09/05/18 09/06/18 23:59 23:59 23:59 23:59 Intake Total 1075 2810 Output Total 2 63 Balance 1073 2747 NAD no LE edema, clubbing or cyanosis CBC, BMP 09/06/18 06:20 09/06/18 06:20 Current Medications Acetaminophen (Tylenol Oral Solution -) 650 mg GT Q6H PRN PRN Reason: FEVER Last Admin: 09/05/18 07:08 Dose: 650 mg Amino Acids (Prosource No Carb Liquid Pkt) 30 ml PO DAILY ART Last Admin: 09/06/18 10:26 Dose: 30 ml Ascorbic Acid (Vitamin C -) 500 mg GT DAILY ART Last Admin: 09/06/18 10:26 Dose: 500 mg Aspirin (Asa -) 81 mg PEG DAILY ART Last Admin: 09/06/18 12:11 Dose: 81 mg Collagenase (Santyl -) 1 applic TP DAILY ART; Protocol Last Admin: 09/06/18 12:12 Dose: 1 applic Donepezil HCl (Aricept -) 10 mg GT HS ART Last Admin: 09/05/18 22:22 Dose: 10 mg Heparin Sodium (Porcine) (Heparin -) 5,000 unit SQ TID ART Last Admin: 09/06/18 13:04 Dose: 5,000 unit Piperacillin Sod/Tazobactam (Sod 3.375 gm/ Dextrose) 50 mls @ 100 mls/hr IVPB Q8H-IV ART; Protocol Last Admin: 09/06/18 10:26 Dose: 100 mls/hr Vancomycin HCl (Vancomycin (Pre-Docked)) 1,000 mg in 250 mls @ 166.667 mls/hr IVPB Q12H ART; Protocol Last Admin: 09/06/18 03:50 Dose: 166.667 mls/hr Metronidazole (Flagyl 500mg Premixed Ivpb -) 500 mg in 100 mls @ 100 mls/hr IVPB Q8H-IV [facility] Last Admin: 09/06/18 10:26 Dose: 100 mls/hr Insulin Aspart (Novolog Vial Sliding Scale -) 1 vial SQ ACHS [facility]; Protocol Last Admin: 09/06/18 12:14 Dose: Not Given Lactobacillus Acidophilus (Bacid -) 1 tab PO DAILY [facility] Last Admin: 09/06/18 10:26 Dose: 1 tab Loratadine (Claritin -) 10 mg PO DAILY [facility] Last Admin: 09/06/18 10:26 Dose: 10 mg Pantoprazole Sodium (Protonix Iv) 40 mg IVPUSH DAILY [facility] Last Admin: 09/06/18 10:27 Dose: 40 mg Scopolamine HBr (Transderm-Scop -) 1 patch TD Q72H [facility] Last Admin: 09/04/18 13:47 Dose: 1 patch Thiamine HCl (Vitamin B1 -) 100 mg PO HS [facility] Last Admin: 09/05/18 22:22 Dose: 100 mg Trihexyphenidyl HCl (Artane -) 1 mg PO BID [facility] Last Admin: 09/06/18 10:28 Dose: 1 mg Valproate Sodium (Depakene -) 250 mg GT BID [facility] Last Admin: 09/06/18 10:26 Dose: 250 mg Zinc Sulfate (Orazinc -) 220 mg GT DAILY@0800 [facility] Last Admin: 09/06/18 10:26 Dose: 220 mg 62 year old gentleman with hx of CVA, Dementia, Hx of ETOH abuse, HLD who presented with AMS, Fevers and poor oral intake with encephlopathy/MRSA PNA/ Persistent fevers and hypernatremia. #Hypernatremia (free water deficit ~4L) in setting of persistent fevers #AMS/Encephlopathy #Sepsis/Gram negative bacteremia #Lactic acidosis #Fevers #MRSA PNA #Dementia with hx of CVA Serum Na stable continue free water via NGT Trend Na dialy Thank you Gregorio Aldrich DO
[2018-09-06] MEDS: ACETAMINOPHEN 650 MG/20.3 ML ORAL SOLUTION (CUPS) GT PRN (17:23)
[2018-09-06] MEDS: DONEPEZIL HCL 10 MG TABLET (FP) GT SCH (22:43)
[2018-09-06] MEDS: THIAMINE HCL 100 MG TABLET (FP) PO SCH (22:43)
[2018-09-07] MEDS ORDERED: PIPERACILLIN/TAZOBACTAM 3.375 GM VIAL IVPB ONE ×3 (01:00→17:40)
[2018-09-07] MEDS ORDERED: DEXTROSE 5%-WATER - 50 ML IVPB ONE ×3 (01:00→17:41)
[2018-09-07] MEDS: PIPERACILLIN/TAZOB 3.375 GM 3.375 GM in DEXTROSE 5%-WATER - 50 ML IVPB SCH ×3 (01:13→19:32)
[2018-09-07] MEDS: VANCOMYCIN 1 GRAM (PRE-DOCKED) 1,000 MG/250 ML BAG IVPB SCH ×2 (03:37→17:07)
[2018-09-07] MEDS: HEPARIN NA (PORCINE) 5,000 UNITS/ML 1ML VIAL SQ SCH ×3 (05:29→23:41)
[2018-09-07] MEDS: INSULIN SLIDING SCALE (NOVOLOG) 1 VIAL SQ SCH ×4 (06:03→23:42)
[2018-09-07 09:25] LABS: ANION GAP 6 MMOL/L (8-16); BLOOD UREA NITROGEN 7 mg/dL (7-18); CALCIUM 7.4 mg/dL (8.5-10.1); CHLORIDE 113 mmol/L (98-107); CO2 26 mmol/L (21-32); CREATININE 0.5 mg/dL (0.55-1.3); GLUCOSE,RANDOM 88 mg/dL (74-106); POTASSIUM 4.1 mmol/L (3.5-5.1); SODIUM 145 mmol/L (136-145)
[2018-09-07] MEDS: ZINC SULFATE 220 MG CAPSULE (FP) GT SCH (09:33)
--- NOTE | 2018-09-07 09:38 | PN ---
Physical Exam: SUBJECTIVE: Patient seen and examined patient is comfortable he did not had fever last night on feeding tube OBJECTIVE: Vital Signs Period Temp Pulse Resp BP Sys/Cortes Pulse Ox Last 24 Hr 98.7 F-99.9 F 82-92 20-24 105-138/60-82 100 GENERAL: The patient is awake, alert, HEAD: Normal with no signs of trauma. EYES: PERRL, NECK: Trachea midline, full range of motion, supple. LUNGS: Breath sounds equal, Has coarse bs bilateral HEART: Regular rate and rhythm, S1, S2 without murmur, rub or gallop. ABDOMEN: Soft, nontender, nondistended, normoactive bowel sounds, no guarding, no rebound, no hepatosplenomegaly, no masses. EXTREMITIES: 2+ pulses, warm, well-perfused, no edema. NEUROLOGICAL: He is alert and awake and responds to vocal commands by opening his eyes SKIN: Warm, dry, normal turgor, no rashes or lesions noted Laboratory Results - last 24 hr 09/06/18 09/06/18 09/06/18 12:12 15:30 17:02 WBC Corrected WBC (auto) RBC Hgb Hct MCV MCH MCHC RDW Plt Count MPV Manual Slide Review Platelet Comment Sodium Potassium Chloride Carbon Dioxide Anion Gap BUN Creatinine Creat Clearance w eGFR POC Glucometer 116 129 Random Glucose Calcium Vancomycin Pre-Dose 16.6 L 09/06/18 09/07/18 09/07/18 23:09 05:25 06:00 WBC Cancelled Corrected WBC (auto) Cancelled RBC Cancelled Hgb Cancelled Hct Cancelled MCV Cancelled MCH Cancelled MCHC Cancelled RDW Cancelled Plt Count Cancelled MPV Cancelled Manual Slide Review Cancelled Platelet Comment Cancelled Sodium Potassium Chloride Carbon Dioxide Anion Gap BUN Creatinine Creat Clearance w eGFR POC Glucometer 195 159 Random Glucose Calcium Vancomycin Pre-Dose 09/07/18 06:00 WBC Corrected WBC (auto) RBC Hgb Hct MCV MCH MCHC RDW Plt Count MPV Manual Slide Review Platelet Comment Sodium 145 Potassium 4.1 Chloride 113 H Carbon Dioxide 26 Anion Gap 6 L BUN 7 Creatinine 0.5 L Creat Clearance w eGFR > 60 POC Glucometer Random Glucose 88 Calcium 7.4 L Vancomycin Pre-Dose Active Medications Generic Name Dose Route Start Last Admin Trade Name Freq PRN Reason Stop Dose Admin Acetaminophen 650 mg 09/02/18 20:56 09/06/18 17:23 Tylenol Oral Solution - GT 650 mg Q6H PRN Administration FEVER Amino Acids 30 ml 09/06/18 10:00 09/06/18 10:26 Prosource No Carb Liquid Pkt PO 30 ml DAILY ART Administration Ascorbic Acid 500 mg 08/18/18 14:59 09/06/18 10:26 Vitamin C - GT 500 mg DAILY ART Administration Aspirin 81 mg 09/06/18 11:30 09/06/18 12:11 Asa - PEG 81 mg DAILY ART Administration Collagenase 1 applic 08/27/18 15:55 09/06/18 12:12 Santyl - TP 1 applic DAILY ART Administration Protocol Donepezil HCl 10 mg 08/18/18 14:59 09/06/18 22:43 Aricept - GT 10 mg HS ART Administration Heparin Sodium (Porcine) 5,000 unit 09/06/18 14:00 09/07/18 05:29 Heparin - SQ 5,000 unit TID ART Administration Piperacillin Sod/Tazobactam 50 mls @ 100 mls/hr 08/28/18 18:00 09/07/18 01:13 Sod 3.375 gm/ Dextrose IVPB 100 mls/hr Q8H-IV ART Administration Protocol Vancomycin HCl 1,000 mg in 250 mls @ 166.667 mls/hr 08/31/18 16:30 09/07/18 03:37 Vancomycin (Pre-Docked) IVPB 166.667 mls/hr Q12H ART Administration Protocol Metronidazole 500 mg in 100 mls @ 100 mls/hr 09/04/18 10:00 09/07/18 02:23 Flagyl 500mg Premixed Ivpb - IVPB 100 mls/hr Q8H-IV ART Administration Insulin Aspart 1 vial 08/13/18 11:00 09/07/18 06:03 Novolog Vial Sliding Scale - SQ 2 units ACHS ART Administration Protocol Lactobacillus Acidophilus 1 tab 09/06/18 10:00 09/06/18 10:26 Bacid - PO 1 tab DAILY ART Administration Loratadine 10 mg 08/22/18 13:45 09/06/18 10:26 Claritin - PO 10 mg DAILY ART Administration Pantoprazole Sodium 40 mg 08/29/18 11:15 09/06/18 10:27 Protonix Iv IVPUSH 40 mg DAILY ART Administration Scopolamine HBr 1 patch 08/23/18 12:00 09/04/18 13:47 Transderm-Scop - TD 1 patch Q72H ART Administration Thiamine HCl 100 mg 08/07/18 22:00 09/06/18 22:43 Vitamin B1 - PO 100 mg HS ART Administration Trihexyphenidyl HCl 1 mg 08/28/18 22:00 09/06/18 22:43 Artane - PO 1 mg BID ART Administration Valproate Sodium 250 mg 08/18/18 22:00 09/06/18 22:42 Depakene - GT 250 mg BID ART Administration Zinc Sulfate 220 mg 08/18/18 15:00 09/07/18 09:33 Orazinc - GT 220 mg DAILY@0800 ART Administration ASSESSMENT/PLAN: This is a 62 year old man with a history of dementia, alcohol abuse, CVAs, hyperlipidemia who presented to the ED with poor oral intake and change in mental status. 1. MRSA/aspiration pneumonia - Continue Zosyn, Vancomycin, Flagyl 2. Neuroleptic malignant syndrome - Continue Artane 3. Dementia - Continue Aricept 4. Hypernatremia - Sodium increasing - Receiving free water via GT - Start IV 07/24 NS - Monitor electrolytes 5. Seizure disorder - Continue Depakene 6. Hyperlipidemia 7. Anemia - Likely secondary to acute illness - Continue to monitor hgb and transfuse to keep >7.0 8. Unstageable pressure ulcers of left hip and left heel, stage I pressure ulcers of right hip and bilateral buttocks - Continue wound care Visit type - Emergency Visit Emergency Visit: Yes ED Registration Date: 07/28/18 Care time: The patient presented to the Emergency Department on the above date and was hospitalized for further evaluation of their emergent condition. - New Patient This patient is new to me today: No - Critical Care Critical Care patient: No - Discharge Referral Referred to [facility] Med P.C.: No
--- NOTE | 2018-09-07 09:49 | PN ---
Progress Note (short form) - Note Progress Note: Renal follow up for Hypernatremia Pt seen and examined at the bedside awake no fevers overnight tolerating tube feeds with free water Vital Signs Temperature 98.7 F 09/07/18 06:00 Pulse Rate 92 H 09/07/18 09:28 Respiratory Rate 24 H 09/07/18 09:28 Blood Pressure 138/82 09/07/18 09:28 O2 Sat by Pulse Oximetry (%) 100 09/06/18 21:00 Intake & Output 09/04/18 09/05/18 09/06/18 09/07/18 23:59 23:59 23:59 23:59 Intake Total 2810 965 1450 Output Total 63 Balance 2747 965 1450 NAD no LE or sacral edema CBC, BMP 09/07/18 06:00 09/07/18 06:00 Current Medications Acetaminophen (Tylenol Oral Solution -) 650 mg GT Q6H PRN PRN Reason: FEVER Last Admin: 09/06/18 17:23 Dose: 650 mg Amino Acids (Prosource No Carb Liquid Pkt) 30 ml PO DAILY ART Last Admin: 09/06/18 10:26 Dose: 30 ml Ascorbic Acid (Vitamin C -) 500 mg GT DAILY ART Last Admin: 09/06/18 10:26 Dose: 500 mg Aspirin (Asa -) 81 mg PEG DAILY ART Last Admin: 09/06/18 12:11 Dose: 81 mg Collagenase (Santyl -) 1 applic TP DAILY ART; Protocol Last Admin: 09/06/18 12:12 Dose: 1 applic Donepezil HCl (Aricept -) 10 mg GT HS ART Last Admin: 09/06/18 22:43 Dose: 10 mg Heparin Sodium (Porcine) (Heparin -) 5,000 unit SQ TID ART Last Admin: 09/07/18 05:29 Dose: 5,000 unit Piperacillin Sod/Tazobactam (Sod 3.375 gm/ Dextrose) 50 mls @ 100 mls/hr IVPB Q8H-IV [facility]; Protocol Last Admin: 09/07/18 01:13 Dose: 100 mls/hr Vancomycin HCl (Vancomycin (Pre-Docked)) 1,000 mg in 250 mls @ 166.667 mls/hr IVPB Q12H ART; Protocol Last Admin: 09/07/18 03:37 Dose: 166.667 mls/hr Metronidazole (Flagyl 500mg Premixed Ivpb -) 500 mg in 100 mls @ 100 mls/hr IVPB Q8H-IV [facility] Last Admin: 09/07/18 02:23 Dose: 100 mls/hr Insulin Aspart (Novolog Vial Sliding Scale -) 1 vial SQ ACHS [facility]; Protocol Last Admin: 09/07/18 06:03 Dose: 2 units Lactobacillus Acidophilus (Bacid -) 1 tab PO DAILY [facility] Last Admin: 09/06/18 10:26 Dose: 1 tab Loratadine (Claritin -) 10 mg PO DAILY [facility] Last Admin: 09/06/18 10:26 Dose: 10 mg Pantoprazole Sodium (Protonix Iv) 40 mg IVPUSH DAILY [facility] Last Admin: 09/06/18 10:27 Dose: 40 mg Scopolamine HBr (Transderm-Scop -) 1 patch TD Q72H [facility] Last Admin: 09/04/18 13:47 Dose: 1 patch Thiamine HCl (Vitamin B1 -) 100 mg PO HS [facility] Last Admin: 09/06/18 22:43 Dose: 100 mg Trihexyphenidyl HCl (Artane -) 1 mg PO BID [facility] Last Admin: 09/06/18 22:43 Dose: 1 mg Valproate Sodium (Depakene -) 250 mg GT BID [facility] Last Admin: 09/06/18 22:42 Dose: 250 mg Zinc Sulfate (Orazinc -) 220 mg GT DAILY@0800 [facility] Last Admin: 09/07/18 09:33 Dose: 220 mg 62 year old gentleman with hx of CVA, Dementia, Hx of ETOH abuse, HLD who presented with AMS, Fevers and poor oral intake with encephlopathy/MRSA PNA/ Persistent fevers and hypernatremia. #Hypernatremia in setting of persistent fevers #AMS/Encephlopathy #Sepsis/Gram negative bacteremia #Lactic acidosis #Fevers #MRSA PNA #Dementia with hx of CVA serum sodium stable continue free water via NGT Trend electrolytes daily for now Abx as per ID Thank you Gregorio Aldrich DO
[2018-09-07] MEDS ORDERED: PT OWN MED DRAWER 7, Y5N ONE ×2 (10:50→20:54)
[2018-09-07] MEDS: VALPROATE SODIUM 250 MG/5 ML UNIT DOSE CUP GT SCH ×2 (10:56→23:42)
[2018-09-07] MEDS: LORATADINE 10 MG TABLET PO SCH (10:56)
[2018-09-07] MEDS: ASCORBIC ACID 500 MG TABLET (FP) GT SCH (10:57)
[2018-09-07] MEDS: LACTOBACILLUS ACIDOPHILUS 1 TABLET PO SCH (10:57)
[2018-09-07] MEDS: ASPIRIN 81 MG CHEWABLE TABLETS PEG SCH (10:58)
[2018-09-07] MEDS: PANTOPRAZOLE SODIUM 40 MG VIAL IVPUSH SCH (11:13)
[2018-09-07] MEDS: TRIHEXYPHENIDYL HCL 2 MG TABLET PO SCH ×2 (11:13→23:42)
[2018-09-07] MEDS: AMINO ACIDS/PROTEIN HYDROLYS 30 ML LIQUID.PKT PO SCH (11:13)
[2018-09-07] MEDS: SCOPOLAMINE HYDROBROMIDE 1 PATCH PATCH.TD72 TD SCH (12:15)
[2018-09-07 12:23] LABS: HEMATOCRIT 22.7 % (35.4-49); HEMOGLOBIN 7.6 GM/dL (11.7-16.9); MCH 31.3 pg (25.7-33.7); MCHC 33.5 g/dl (32.0-35.9); MEAN CELL VOLUME 93.4 fl (80-96); MEAN PLT VOLUME 9.6 fl (7.5-11.1); PLATELET COUNT 352 K/MM3 (134-434); RBC 2.43 M/mm3 (4.00-5.60); RDW 20.6 % (11.9-15.9); WHITE BLOOD COUNT 8.1 K/mm3 (4.0-10.0)
--- NOTE | 2018-09-07 13:11 | EKG ---
Test Reason : Blood Pressure : / mmHG Vent. Rate : 069 BPM Atrial Rate : 069 BPM P-R Int : 110 ms QRS Dur : 062 ms QT Int : 358 ms P-R-T Axes : 040 005 008 degrees QTc Int : 383 ms POOR DATA QUALITY, INTERPRETATION MAY BE ADVERSELY AFFECTED SINUS RHYTHM WITH SHORT OH CANNOT RULE OUT SEPTAL INFARCT , AGE UNDETERMINED Confirmed by DORIS KEYES MD ([id number]) on 09/07/2018 1:10:34 PM Referred By: Confirmed By:DORIS KEYES MD
--- NOTE | 2018-09-07 14:07 | PN ---
Progress Note, Physician History of Present Illness: Pt seen and examined. Events noted. Continues to have recurrence of fevers. 100.7F this am. No acute distress noted. Family at bedside. - Current Medication List Current Medications: Active Medications Acetaminophen (Tylenol Oral Solution -) 650 mg GT Q6H PRN PRN Reason: FEVER Last Admin: 09/06/18 17:23 Dose: 650 mg Amino Acids (Prosource No Carb Liquid Pkt) 30 ml PO DAILY [facility] Last Admin: 09/07/18 11:13 Dose: 30 ml Ascorbic Acid (Vitamin C -) 500 mg GT DAILY [facility] Last Admin: 09/07/18 10:57 Dose: 500 mg Aspirin (Asa -) 81 mg PEG DAILY [facility] Last Admin: 09/07/18 10:58 Dose: 81 mg Collagenase (Santyl -) 1 applic TP DAILY [facility]; Protocol Last Admin: 09/06/18 12:12 Dose: 1 applic Donepezil HCl (Aricept -) 10 mg GT HS ART Last Admin: 09/06/18 22:43 Dose: 10 mg Heparin Sodium (Porcine) (Heparin -) 5,000 unit SQ TID ART Last Admin: 09/07/18 05:29 Dose: 5,000 unit Piperacillin Sod/Tazobactam (Sod 3.375 gm/ Dextrose) 50 mls @ 100 mls/hr IVPB Q8H-IV ART; Protocol Last Admin: 09/07/18 11:14 Dose: 100 mls/hr Vancomycin HCl (Vancomycin (Pre-Docked)) 1,000 mg in 250 mls @ 166.667 mls/hr IVPB Q12H ART; Protocol Last Admin: 09/07/18 03:37 Dose: 166.667 mls/hr Metronidazole (Flagyl 500mg Premixed Ivpb -) 500 mg in 100 mls @ 100 mls/hr IVPB Q8H-IV ART Last Admin: 09/07/18 12:06 Dose: 100 mls/hr Insulin Aspart (Novolog Vial Sliding Scale -) 1 vial SQ ACHS ART; Protocol Last Admin: 09/07/18 12:06 Dose: Not Given Lactobacillus Acidophilus (Bacid -) 1 tab PO DAILY ART Last Admin: 09/07/18 10:57 Dose: 1 tab Loratadine (Claritin -) 10 mg PO DAILY [facility] Last Admin: 09/07/18 10:56 Dose: 10 mg Pantoprazole Sodium (Protonix Iv) 40 mg IVPUSH DAILY [facility] Last Admin: 09/07/18 11:13 Dose: 40 mg Scopolamine HBr (Transderm-Scop -) 1 patch TD Q72H [facility] Last Admin: 09/07/18 12:15 Dose: 1 patch Thiamine HCl (Vitamin B1 -) 100 mg PO HS [facility] Last Admin: 09/06/18 22:43 Dose: 100 mg Trihexyphenidyl HCl (Artane -) 1 mg PO BID [facility] Last Admin: 09/07/18 11:13 Dose: 1 mg Valproate Sodium (Depakene -) 250 mg GT BID [facility] Last Admin: 09/07/18 10:56 Dose: 250 mg Zinc Sulfate (Orazinc -) 220 mg GT DAILY@0800 [facility] Last Admin: 09/07/18 09:33 Dose: 220 mg - Objective Vital Signs: Vital Signs Temperature 100.7 F H 09/07/18 11:50 Pulse Rate 92 H 09/07/18 09:28 Respiratory Rate 24 H 09/07/18 09:28 Blood Pressure 138/82 09/07/18 09:28 O2 Sat by Pulse Oximetry (%) 100 09/06/18 21:00 Constitutional: Yes: No Distress Cardiovascular: Yes: Regular Rate and Rhythm Respiratory: Yes: CTA Bilaterally Gastrointestinal: Yes: Normal Bowel Sounds, Soft Wound/Incision: Yes: Other (Lt hip necrotic ulcer unstageable/eschar, no current drainage noted, mild klaus-wound erythema) Labs: CBC, BMP 09/07/18 11:20 09/07/18 06:00 INR, PTT INR 1.21 (0.83-1.09) H 09/02/18 07:45 Microbiology 09/04/18 18:30 Hip - Left Gram Stain - Final 09/04/18 18:30 Hip - Left Wound Culture - Preliminary Pseudomonas Aeruginosa Lactose Fermenting Neg Bacilli Staphylococcus Coagulase Neg 09/04/18 08:22 Blood - Peripheral Venous Blood Culture - Preliminary NO GROWTH OBTAINED AFTER 72 HOURS, INCUBATION TO CONTINUE FOR 2 DAYS. 09/04/18 07:35 Blood - Peripheral Venous Blood Culture - Preliminary NO GROWTH OBTAINED AFTER 72 HOURS, INCUBATION TO CONTINUE FOR 2 DAYS. 09/04/18 12:52 Sputum - Oropharynx Suctioned Sputum Gram Stain - Final 09/04/18 12:52 Sputum - Oropharynx Suctioned Sputum Sputum Culture - Final Pseudomonas Aeruginosa 09/05/18 02:25 Stool Clostridium difficile Antigen (ANIYA) - Final 09/05/18 02:25 Stool Clostridium difficile Toxin Assay - Final 09/04/18 09:45 Urine - Urine - Catheterized Urine Culture - Final NO GROWTH OBTAINED 08/29/18 21:15 Blood - Peripheral Venous Blood Culture - Final NO GROWTH AFTER 5 DAYS INCUBATION 08/29/18 20:50 Blood - Peripheral Venous Blood Culture - Final NO GROWTH AFTER 5 DAYS INCUBATION 08/28/18 14:20 Blood - Peripheral Venous Blood Culture - Final Klebsiella Pneumoniae 08/28/18 14:20 Blood - Peripheral Venous Blood Culture - Final Klebsiella Pneumoniae 08/28/18 17:15 Urine - Urine Clean Catch Urine Culture - Final NO GROWTH OBTAINED 08/19/18 17:00 Cerebral Spinal Fluid - Lumbar Puncture Gram Stain - Final 08/19/18 17:00 Cerebral Spinal Fluid - Lumbar Puncture CSF Culture - Final NO GROWTH AFTER 48 HOURS INCUBATION 08/13/18 11:30 Blood - Peripheral Venous Blood Culture - Final NO GROWTH AFTER 5 DAYS INCUBATION 08/13/18 11:18 Blood - Peripheral Venous Blood Culture - Final NO GROWTH AFTER 5 DAYS INCUBATION 08/12/18 13:36 Blood - Peripheral Venous Blood Culture - Final NO GROWTH AFTER 5 DAYS INCUBATION 08/12/18 13:30 Blood - Peripheral Venous Blood Culture - Final NO GROWTH AFTER 5 DAYS INCUBATION 08/10/18 15:00 Blood - Peripheral Venous Blood Culture - Final NO GROWTH AFTER 5 DAYS INCUBATION 08/13/18 21:30 Urine - Urine Clean Catch Urine Culture - Final NO GROWTH OBTAINED 08/09/18 13:55 Blood - Peripheral Venous Blood Culture - Final NO GROWTH AFTER 5 DAYS INCUBATION 08/10/18 16:30 Urine - Urine - Catheterized Urine Culture - Final NO GROWTH OBTAINED 07/30/18 16:30 Sputum - Oropharynx Suctioned Sputum Gram Stain - Final 07/30/18 16:30 Sputum - Oropharynx Suctioned Sputum Sputum Culture - Final Mr S Aureus Yeast Like Organism 07/28/18 15:36 Blood - Peripheral Venous Blood Culture - Final NO GROWTH AFTER 5 DAYS INCUBATION 07/28/18 15:25 Blood - Peripheral Venous Blood Culture - Final NO GROWTH AFTER 5 DAYS INCUBATION 07/28/18 15:50 Urine - Urine - Catheterized Urine Culture - Final NO GROWTH OBTAINED Problem List - Problems (1) PNA (pneumonia) Code(s): J18.9 - PNEUMONIA, UNSPECIFIED ORGANISM Assessment/Plan Persistent Fevers Klebsiella Bacteremia Pseudomonas PNA Infected Lt hip DU NMS Seizure d.o. Dementia -- lab results noted -- continue current antibiotics -- monitor wbc trend latest blood cultures no growth monitor for persistent diarrhea
[2018-09-07] MEDS: COLLAGENASE CLOSTRIDIUM HIST. 30 GRAMS TUBE TP SCH (14:30)
[2018-09-07] MEDS: THIAMINE HCL 100 MG TABLET (FP) PO SCH (23:41)
[2018-09-07] MEDS: DONEPEZIL HCL 10 MG TABLET (FP) GT SCH (23:41)
[2018-09-08] MEDS ORDERED: PIPERACILLIN/TAZOBACTAM 3.375 GM VIAL IVPB ONE ×3 (02:10→17:21)
[2018-09-08] MEDS ORDERED: DEXTROSE 5%-WATER - 50 ML IVPB ONE ×3 (02:10→17:21)
[2018-09-08] MEDS: PIPERACILLIN/TAZOB 3.375 GM 3.375 GM in DEXTROSE 5%-WATER - 50 ML IVPB SCH ×3 (02:25→17:32)
[2018-09-08] MEDS: VANCOMYCIN 1 GRAM (PRE-DOCKED) 1,000 MG/250 ML BAG IVPB SCH ×2 (05:46→19:37)
[2018-09-08] MEDS: HEPARIN NA (PORCINE) 5,000 UNITS/ML 1ML VIAL SQ SCH ×3 (06:37→22:59)
[2018-09-08] MEDS: INSULIN SLIDING SCALE (NOVOLOG) 1 VIAL SQ SCH ×4 (06:40→23:01)
[2018-09-08] MEDS ORDERED: PT OWN MED DRAWER 7, Y5N ONE ×2 (09:42→17:21)
[2018-09-08] MEDS: PANTOPRAZOLE SODIUM 40 MG VIAL IVPUSH SCH (10:05)
[2018-09-08] MEDS: LACTOBACILLUS ACIDOPHILUS 1 TABLET PO SCH (10:06)
[2018-09-08] MEDS: ASPIRIN 81 MG CHEWABLE TABLETS PEG SCH (10:06)
[2018-09-08] MEDS: ASCORBIC ACID 500 MG TABLET (FP) GT SCH (10:06)
[2018-09-08] MEDS: AMINO ACIDS/PROTEIN HYDROLYS 30 ML LIQUID.PKT PO SCH (10:06)
[2018-09-08] MEDS: TRIHEXYPHENIDYL HCL 2 MG TABLET PO SCH ×2 (10:06→23:01)
[2018-09-08] MEDS: ZINC SULFATE 220 MG CAPSULE (FP) GT SCH (10:06)
[2018-09-08] MEDS: LORATADINE 10 MG TABLET PO SCH (10:06)
[2018-09-08] MEDS: VALPROATE SODIUM 250 MG/5 ML UNIT DOSE CUP GT SCH ×2 (10:08→22:59)
[2018-09-08] MEDS: COLLAGENASE CLOSTRIDIUM HIST. 30 GRAMS TUBE TP SCH (10:45)
--- NOTE | 2018-09-08 13:52 | PN ---
Progress Note, Physician History of Present Illness: Pt alert today, without distress. 1 BM reported today. Tmax 100.1F. - Current Medication List Current Medications: Active Medications Acetaminophen (Tylenol Oral Solution -) 650 mg GT Q6H PRN PRN Reason: FEVER Last Admin: 09/06/18 17:23 Dose: 650 mg Amino Acids (Prosource No Carb Liquid Pkt) 30 ml PO DAILY [facility] Last Admin: 09/08/18 10:06 Dose: 30 ml Ascorbic Acid (Vitamin C -) 500 mg GT DAILY [facility] Last Admin: 09/08/18 10:06 Dose: 500 mg Aspirin (Asa -) 81 mg PEG DAILY [facility] Last Admin: 09/08/18 10:06 Dose: 81 mg Collagenase (Santyl -) 1 applic TP DAILY [facility]; Protocol Last Admin: 09/07/18 14:30 Dose: 1 applic Donepezil HCl (Aricept -) 10 mg GT HS ART Last Admin: 09/07/18 23:41 Dose: 10 mg Heparin Sodium (Porcine) (Heparin -) 5,000 unit SQ TID [facility] Last Admin: 09/08/18 06:37 Dose: 5,000 unit Vancomycin HCl (Vancomycin (Pre-Docked)) 1,000 mg in 250 mls @ 166.667 mls/hr IVPB Q12H [facility]; Protocol Last Admin: 09/08/18 05:46 Dose: 166.667 mls/hr Metronidazole (Flagyl 500mg Premixed Ivpb -) 500 mg in 100 mls @ 100 mls/hr IVPB Q8H-IV [facility] Last Admin: 09/08/18 10:05 Dose: 100 mls/hr Piperacillin Sod/Tazobactam (Sod 3.375 gm/ Dextrose) 50 mls @ 100 mls/hr IVPB Q8H-IV [facility]; Protocol Last Admin: 09/08/18 10:06 Dose: 100 mls/hr Insulin Aspart (Novolog Vial Sliding Scale -) 1 vial SQ ACHS [facility]; Protocol Last Admin: 09/08/18 12:18 Dose: Not Given Lactobacillus Acidophilus (Bacid -) 1 tab PO DAILY [facility] Last Admin: 09/08/18 10:06 Dose: 1 tab Loratadine (Claritin -) 10 mg PO DAILY [facility] Last Admin: 09/08/18 10:06 Dose: 10 mg Pantoprazole Sodium (Protonix Iv) 40 mg IVPUSH DAILY [facility] Last Admin: 09/08/18 10:05 Dose: 40 mg Scopolamine HBr (Transderm-Scop -) 1 patch TD Q72H [facility] Last Admin: 09/07/18 12:15 Dose: 1 patch Thiamine HCl (Vitamin B1 -) 100 mg PO HS [facility] Last Admin: 09/07/18 23:41 Dose: 100 mg Trihexyphenidyl HCl (Artane -) 1 mg PO BID [facility] Last Admin: 09/08/18 10:06 Dose: 1 mg Valproate Sodium (Depakene -) 250 mg GT BID [facility] Last Admin: 09/08/18 10:08 Dose: 250 mg Zinc Sulfate (Orazinc -) 220 mg GT DAILY@0800 [facility] Last Admin: 09/08/18 10:06 Dose: 220 mg - Objective Vital Signs: Vital Signs Temperature 99.7 F H 09/08/18 10:00 Pulse Rate 81 09/08/18 10:00 Respiratory Rate 17 09/08/18 10:00 Blood Pressure 123/71 09/08/18 10:00 O2 Sat by Pulse Oximetry (%) 100 09/07/18 21:00 Constitutional: Yes: No Distress Cardiovascular: Yes: Regular Rate and Rhythm Respiratory: Yes: Regular Gastrointestinal: Yes: Normal Bowel Sounds, Soft Integumentary: Yes: Other (Hip necrotic/unstageable ulcer) Neurological: Yes: Alert Labs: CBC, BMP 09/07/18 11:20 09/07/18 06:00 INR, PTT INR 1.21 (0.83-1.09) H 09/02/18 07:45 Microbiology 09/04/18 18:30 Hip - Left Gram Stain - Final 09/04/18 18:30 Hip - Left Wound Culture - Final Pseudomonas Aeruginosa Klebsiella Pneumoniae Staphylococcus Coagulase Neg 09/04/18 08:22 Blood - Peripheral Venous Blood Culture - Preliminary NO GROWTH OBTAINED AFTER 96 HOURS, INCUBATION TO CONTINUE FOR 1 DAYS. 09/04/18 07:35 Blood - Peripheral Venous Blood Culture - Preliminary NO GROWTH OBTAINED AFTER 96 HOURS, INCUBATION TO CONTINUE FOR 1 DAYS. 09/04/18 12:52 Sputum - Oropharynx Suctioned Sputum Gram Stain - Final 09/04/18 12:52 Sputum - Oropharynx Suctioned Sputum Sputum Culture - Final Pseudomonas Aeruginosa 09/05/18 02:25 Stool Clostridium difficile Antigen (ANIYA) - Final 09/05/18 02:25 Stool Clostridium difficile Toxin Assay - Final 09/04/18 09:45 Urine - Urine - Catheterized Urine Culture - Final NO GROWTH OBTAINED 08/29/18 21:15 Blood - Peripheral Venous Blood Culture - Final NO GROWTH AFTER 5 DAYS INCUBATION 08/29/18 20:50 Blood - Peripheral Venous Blood Culture - Final NO GROWTH AFTER 5 DAYS INCUBATION 08/28/18 14:20 Blood - Peripheral Venous Blood Culture - Final Klebsiella Pneumoniae 08/28/18 14:20 Blood - Peripheral Venous Blood Culture - Final Klebsiella Pneumoniae 08/28/18 17:15 Urine - Urine Clean Catch Urine Culture - Final NO GROWTH OBTAINED 08/19/18 17:00 Cerebral Spinal Fluid - Lumbar Puncture Gram Stain - Final 08/19/18 17:00 Cerebral Spinal Fluid - Lumbar Puncture CSF Culture - Final NO GROWTH AFTER 48 HOURS INCUBATION 08/13/18 11:30 Blood - Peripheral Venous Blood Culture - Final NO GROWTH AFTER 5 DAYS INCUBATION 08/13/18 11:18 Blood - Peripheral Venous Blood Culture - Final NO GROWTH AFTER 5 DAYS INCUBATION 08/12/18 13:36 Blood - Peripheral Venous Blood Culture - Final NO GROWTH AFTER 5 DAYS INCUBATION 08/12/18 13:30 Blood - Peripheral Venous Blood Culture - Final NO GROWTH AFTER 5 DAYS INCUBATION 08/10/18 15:00 Blood - Peripheral Venous Blood Culture - Final NO GROWTH AFTER 5 DAYS INCUBATION 08/13/18 21:30 Urine - Urine Clean Catch Urine Culture - Final NO GROWTH OBTAINED 08/09/18 13:55 Blood - Peripheral Venous Blood Culture - Final NO GROWTH AFTER 5 DAYS INCUBATION 08/10/18 16:30 Urine - Urine - Catheterized Urine Culture - Final NO GROWTH OBTAINED 07/30/18 16:30 Sputum - Oropharynx Suctioned Sputum Gram Stain - Final 07/30/18 16:30 Sputum - Oropharynx Suctioned Sputum Sputum Culture - Final Mr S Aureus Yeast Like Organism 07/28/18 15:36 Blood - Peripheral Venous Blood Culture - Final NO GROWTH AFTER 5 DAYS INCUBATION 07/28/18 15:25 Blood - Peripheral Venous Blood Culture - Final NO GROWTH AFTER 5 DAYS INCUBATION 07/28/18 15:50 Urine - Urine - Catheterized Urine Culture - Final NO GROWTH OBTAINED Problem List - Problems (1) PNA (pneumonia) Code(s): J18.9 - PNEUMONIA, UNSPECIFIED ORGANISM Assessment/Plan Klebsiella Bacteremia Pseudomonas PNA Fever Infected Lt hip DU NMS Seizure d.o. Dementia -- pt with low grade fevers -- continue antibiotics -- evaluate for debridement -- leukocytosis resolved -- no current diarrhea latest blood cultures no growth
--- NOTE | 2018-09-08 15:03 | PN ---
Physical Exam: SUBJECTIVE: Patient seen and examined was afibrile yesterday and last night he had fever again , no distress no fever or chills OBJECTIVE: Vital Signs Period Temp Pulse Resp BP Sys/Cortes Pulse Ox Last 24 Hr 99.0 F-100.1 F 81-86 17-20 111-131/57-80 100 GENERAL: The patient is awake, HEAD: Normal with no signs of trauma. ENT: Ears normal, nares patent, oropharynx clear without exudates, moist mucous membranes. NECK: supple. LUNGS: Breath sounds equal, clear to auscultation bilaterally, no wheezes, no crackles, no accessory muscle use. HEART: Regular rate and rhythm, S1, S2 without murmur, rub or gallop. ABDOMEN: Soft, EXTREMITIES: 2+ pulses, warm, well-perfused, no edema. NEUROLOGICAL: awake Laboratory Results - last 24 hr 09/07/18 09/07/18 09/08/18 17:34 21:33 06:38 POC Glucometer 137 127 143 09/08/18 11:30 POC Glucometer 120 Active Medications Generic Name Dose Route Start Last Admin Trade Name Reginoq PRN Reason Stop Dose Admin Acetaminophen 650 mg 09/02/18 20:56 09/06/18 17:23 Tylenol Oral Solution - GT 650 mg Q6H PRN Administration FEVER Amino Acids 30 ml 09/06/18 10:00 09/08/18 10:06 Prosource No Carb Liquid Pkt PO 30 ml DAILY ART Administration Ascorbic Acid 500 mg 08/18/18 14:59 09/08/18 10:06 Vitamin C - GT 500 mg DAILY ART Administration Aspirin 81 mg 09/06/18 11:30 09/08/18 10:06 Asa - PEG 81 mg DAILY ART Administration Collagenase 1 applic 08/27/18 15:55 09/07/18 14:30 Santyl - TP 1 applic DAILY ART Administration Protocol Donepezil HCl 10 mg 08/18/18 14:59 09/07/18 23:41 Aricept - GT 10 mg HS ART Administration Heparin Sodium (Porcine) 5,000 unit 09/06/18 14:00 09/08/18 06:37 Heparin - SQ 5,000 unit TID ART Administration Vancomycin HCl 1,000 mg in 250 mls @ 166.667 mls/hr 08/31/18 16:30 09/08/18 05:46 Vancomycin (Pre-Docked) IVPB 166.667 mls/hr Q12H ART Administration Protocol Metronidazole 500 mg in 100 mls @ 100 mls/hr 09/04/18 10:00 09/08/18 10:05 Flagyl 500mg Premixed Ivpb - IVPB 100 mls/hr Q8H-IV ART Administration Piperacillin Sod/Tazobactam 50 mls @ 100 mls/hr 09/07/18 18:00 09/08/18 10:06 Sod 3.375 gm/ Dextrose IVPB 100 mls/hr Q8H-IV ART Administration Protocol Insulin Aspart 1 vial 08/13/18 11:00 09/08/18 12:18 Novolog Vial Sliding Scale - SQ Not Given ACHS ART Protocol Lactobacillus Acidophilus 1 tab 09/06/18 10:00 09/08/18 10:06 Bacid - PO 1 tab DAILY ART Administration Loratadine 10 mg 08/22/18 13:45 09/08/18 10:06 Claritin - PO 10 mg DAILY ART Administration Pantoprazole Sodium 40 mg 08/29/18 11:15 09/08/18 10:05 Protonix Iv IVPUSH 40 mg DAILY ART Administration Scopolamine HBr 1 patch 08/23/18 12:00 09/07/18 12:15 Transderm-Scop - TD 1 patch Q72H ART Administration Thiamine HCl 100 mg 08/07/18 22:00 09/07/18 23:41 Vitamin B1 - PO 100 mg HS ART Administration Trihexyphenidyl HCl 1 mg 08/28/18 22:00 09/08/18 10:06 Artane - PO 1 mg BID ART Administration Valproate Sodium 250 mg 08/18/18 22:00 09/08/18 10:08 Depakene - GT 250 mg BID ART Administration Zinc Sulfate 220 mg 08/18/18 15:00 09/08/18 10:06 Orazinc - GT 220 mg DAILY@0800 [facility] Administration ASSESSMENT/PLAN: ASSESSMENT/PLAN: This is a 62 year old man with a history of dementia, alcohol abuse, CVAs, hyperlipidemia who presented to the ED with poor oral intake and change in mental status. 1. MRSA/aspiration pneumonia - Continue Zosyn, Vancomycin, Flagyl 2. Neuroleptic malignant syndrome - Continue Artane 3. Dementia - Continue Aricept 4. Hypernatremia - better - Receiving free water via GT - Start IV 1/2 NS - Monitor electrolytes 5. Seizure disorder - Continue Depakene 6. Hyperlipidemia 7. Anemia - Likely secondary to acute illness - Continue to monitor hgb and transfuse to keep >7.0 8. Unstageable pressure ulcers of left hip and left heel, stage I pressure ulcers of right hip and bilateral buttocks - Continue wound care Visit type - Emergency Visit Emergency Visit: Yes ED Registration Date: 07/28/18 Care time: The patient presented to the Emergency Department on the above date and was hospitalized for further evaluation of their emergent condition. - New Patient This patient is new to me today: No - Critical Care Critical Care patient: No - Discharge Referral Referred to [facility] Med [facility].C[facility] No
[2018-09-08] MEDS: THIAMINE HCL 100 MG TABLET (FP) PO SCH (23:00)
[2018-09-08] MEDS: DONEPEZIL HCL 10 MG TABLET (FP) GT SCH (23:01)
[2018-09-09] MEDS ORDERED: DEXTROSE 5%-WATER - 50 ML IVPB ONE ×3 (01:07→17:21)
[2018-09-09] MEDS ORDERED: PIPERACILLIN/TAZOBACTAM 3.375 GM VIAL IVPB ONE ×3 (01:07→17:21)
[2018-09-09] MEDS: PIPERACILLIN/TAZOB 3.375 GM 3.375 GM in DEXTROSE 5%-WATER - 50 ML IVPB SCH ×3 (01:14→17:49)
[2018-09-09] MEDS: VANCOMYCIN 1 GRAM (PRE-DOCKED) 1,000 MG/250 ML BAG IVPB SCH (05:24)
[2018-09-09] MEDS: HEPARIN NA (PORCINE) 5,000 UNITS/ML 1ML VIAL SQ SCH ×3 (05:24→21:58)
[2018-09-09] MEDS: INSULIN SLIDING SCALE (NOVOLOG) 1 VIAL SQ SCH ×4 (08:04→22:08)
[2018-09-09] MEDS: ASCORBIC ACID 500 MG TABLET (FP) GT SCH (09:01)
[2018-09-09] MEDS: LORATADINE 10 MG TABLET PO SCH (09:01)
[2018-09-09] MEDS: VALPROATE SODIUM 250 MG/5 ML UNIT DOSE CUP GT SCH ×2 (09:01→21:57)
[2018-09-09] MEDS: ZINC SULFATE 220 MG CAPSULE (FP) GT SCH (09:01)
[2018-09-09] MEDS: AMINO ACIDS/PROTEIN HYDROLYS 30 ML LIQUID.PKT PO SCH (09:01)
[2018-09-09] MEDS: LACTOBACILLUS ACIDOPHILUS 1 TABLET PO SCH (09:01)
[2018-09-09] MEDS: ASPIRIN 81 MG CHEWABLE TABLETS PEG SCH (09:01)
[2018-09-09] MEDS: PANTOPRAZOLE SODIUM 40 MG VIAL IVPUSH SCH (09:01)
[2018-09-09] MEDS: COLLAGENASE CLOSTRIDIUM HIST. 30 GRAMS TUBE TP SCH (09:02)
[2018-09-09] MEDS: TRIHEXYPHENIDYL HCL 2 MG TABLET PO SCH ×2 (09:09→21:57)
--- NOTE | 2018-09-09 10:55 | PN ---
Progress Note, Physician History of Present Illness: patient stable afebrile now talking - Current Medication List Current Medications: Active Medications Acetaminophen (Tylenol Oral Solution -) 650 mg GT Q6H PRN PRN Reason: FEVER Last Admin: 09/06/18 17:23 Dose: 650 mg Amino Acids (Prosource No Carb Liquid Pkt) 30 ml PO DAILY [facility] Last Admin: 09/09/18 09:01 Dose: 30 ml Ascorbic Acid (Vitamin C -) 500 mg GT DAILY [facility] Last Admin: 09/09/18 09:01 Dose: 500 mg Aspirin (Asa -) 81 mg PEG DAILY [facility] Last Admin: 09/09/18 09:01 Dose: 81 mg Collagenase (Santyl -) 1 applic TP DAILY [facility]; Protocol Last Admin: 09/09/18 09:02 Dose: 1 applic Donepezil HCl (Aricept -) 10 mg GT HS [facility] Last Admin: 09/08/18 23:01 Dose: 10 mg Heparin Sodium (Porcine) (Heparin -) 5,000 unit SQ TID [facility] Last Admin: 09/09/18 05:24 Dose: 5,000 unit Metronidazole (Flagyl 500mg Premixed Ivpb -) 500 mg in 100 mls @ 100 mls/hr IVPB Q8H-IV [facility] Last Admin: 09/09/18 09:02 Dose: 100 mls/hr Piperacillin Sod/Tazobactam (Sod 3.375 gm/ Dextrose) 50 mls @ 100 mls/hr IVPB Q8H-IV [facility]; Protocol Last Admin: 09/09/18 09:02 Dose: 100 mls/hr Insulin Aspart (Novolog Vial Sliding Scale -) 1 vial SQ ACHS [facility]; Protocol Last Admin: 09/09/18 08:04 Dose: Not Given Lactobacillus Acidophilus (Bacid -) 1 tab PO DAILY [facility] Last Admin: 09/09/18 09:01 Dose: 1 tab Loratadine (Claritin -) 10 mg PO DAILY [facility] Last Admin: 09/09/18 09:01 Dose: 10 mg Pantoprazole Sodium (Protonix Iv) 40 mg IVPUSH DAILY [facility] Last Admin: 09/09/18 09:01 Dose: 40 mg Scopolamine HBr (Transderm-Scop -) 1 patch TD Q72H [facility] Last Admin: 09/07/18 12:15 Dose: 1 patch Thiamine HCl (Vitamin B1 -) 100 mg PO HS [facility] Last Admin: 09/08/18 23:00 Dose: 100 mg Trihexyphenidyl HCl (Artane -) 1 mg PO BID [facility] Last Admin: 09/09/18 09:09 Dose: 1 mg Valproate Sodium (Depakene -) 250 mg GT BID [facility] Last Admin: 09/09/18 09:01 Dose: 250 mg Zinc Sulfate (Orazinc -) 220 mg GT DAILY@0800 [facility] Last Admin: 09/09/18 09:01 Dose: 220 mg - Objective Vital Signs: Vital Signs Temperature 99.4 F 09/09/18 07:00 Pulse Rate 87 09/09/18 07:00 Respiratory Rate 18 09/09/18 07:00 Blood Pressure 112/63 09/09/18 07:00 O2 Sat by Pulse Oximetry (%) 100 09/08/18 21:00 Constitutional: Yes: No Distress, Calm Cardiovascular: Yes: Regular Rate and Rhythm Respiratory: Yes: Regular, CTA Bilaterally Gastrointestinal: Yes: Normal Bowel Sounds, Soft Musculoskeletal: Yes: WNL Extremities: Yes: WNL Neurological: Yes: Alert, Other Psychiatric: Yes: Other Labs: CBC, BMP 09/07/18 11:20 09/07/18 06:00 INR, PTT INR 1.21 (0.83-1.09) H 09/02/18 07:45 Assessment/Plan also now patient is coughing and producing sputum Altered Mental Status r/o Neuroleptic Malignant Syndrome r/o Seizures Seizure Disorder h/o CVA Schizophrenia Alzheimer's Dementia drug reaction mrsa pneumonia gm negative bactermia plan will stop vanco and monitor nutrition rest continue current mgmt improving close watch
--- NOTE | 2018-09-09 12:19 | PN ---
Progress Note, Physician Chief Complaint: The patient examined in his bed. Nonverbal. Clinical status unchanged. Tube feeding well tolerated. Awake. T Max 99.4 History of Present Illness: 62 year old gentleman with hx of CVA, Dementia, Hx of ETOH abuse, HLD who presented with AMS, Fevers and poor oral intake with encephlopathy/MRSA PNA/ Persistent fevers and Hypernatremia - Current Medication List Current Medications: Active Medications Acetaminophen (Tylenol Oral Solution -) 650 mg GT Q6H PRN PRN Reason: FEVER Last Admin: 09/06/18 17:23 Dose: 650 mg Amino Acids (Prosource No Carb Liquid Pkt) 30 ml PO DAILY [facility] Last Admin: 09/09/18 09:01 Dose: 30 ml Ascorbic Acid (Vitamin C -) 500 mg GT DAILY [facility] Last Admin: 09/09/18 09:01 Dose: 500 mg Aspirin (Asa -) 81 mg PEG DAILY [facility] Last Admin: 09/09/18 09:01 Dose: 81 mg Collagenase (Santyl -) 1 applic TP DAILY [facility]; Protocol Last Admin: 09/09/18 09:02 Dose: 1 applic Donepezil HCl (Aricept -) 10 mg GT HS [facility] Last Admin: 09/08/18 23:01 Dose: 10 mg Heparin Sodium (Porcine) (Heparin -) 5,000 unit SQ TID [facility] Last Admin: 09/09/18 05:24 Dose: 5,000 unit Metronidazole (Flagyl 500mg Premixed Ivpb -) 500 mg in 100 mls @ 100 mls/hr IVPB Q8H-IV [facility] Last Admin: 09/09/18 09:02 Dose: 100 mls/hr Piperacillin Sod/Tazobactam (Sod 3.375 gm/ Dextrose) 50 mls @ 100 mls/hr IVPB Q8H-IV [facility]; Protocol Last Admin: 09/09/18 09:02 Dose: 100 mls/hr Insulin Aspart (Novolog Vial Sliding Scale -) 1 vial SQ ACHS [facility]; Protocol Last Admin: 09/09/18 12:13 Dose: Not Given Lactobacillus Acidophilus (Bacid -) 1 tab PO DAILY [facility] Last Admin: 09/09/18 09:01 Dose: 1 tab Loratadine (Claritin -) 10 mg PO DAILY [facility] Last Admin: 09/09/18 09:01 Dose: 10 mg Pantoprazole Sodium (Protonix Iv) 40 mg IVPUSH DAILY [facility] Last Admin: 09/09/18 09:01 Dose: 40 mg Scopolamine HBr (Transderm-Scop -) 1 patch TD Q72H [facility] Last Admin: 09/07/18 12:15 Dose: 1 patch Thiamine HCl (Vitamin B1 -) 100 mg PO HS [facility] Last Admin: 09/08/18 23:00 Dose: 100 mg Trihexyphenidyl HCl (Artane -) 1 mg PO BID [facility] Last Admin: 09/09/18 09:09 Dose: 1 mg Valproate Sodium (Depakene -) 250 mg GT BID [facility] Last Admin: 09/09/18 09:01 Dose: 250 mg Zinc Sulfate (Orazinc -) 220 mg GT DAILY@0800 [facility] Last Admin: 09/09/18 09:01 Dose: 220 mg - Objective Vital Signs: Vital Signs Temperature 99.4 F 09/09/18 07:00 Pulse Rate 87 09/09/18 07:00 Respiratory Rate 18 09/09/18 07:00 Blood Pressure 112/63 09/09/18 07:00 O2 Sat by Pulse Oximetry (%) 100 09/08/18 21:00 Constitutional: Yes: No Distress Eyes: Yes: Conjunctiva Clear HENT: Yes: Atraumatic Neck: Yes: Trachea Midline Cardiovascular: Yes: Tachycardia, S1, S2 Respiratory: Yes: CTA Bilaterally, Diminished Gastrointestinal: Yes: Soft, Other (G tube feeding in progress.) Genitourinary: No: Bladder Distention, CVA Tenderness - Left, CVA Tenderness - Right Edema: No Neurological: Yes: Alert, Other (aphasic) Labs: CBC, BMP 09/07/18 11:20 09/07/18 06:00 INR, PTT INR 1.21 (0.83-1.09) H 09/02/18 07:45 Problem List - Problems (1) MEE (acute kidney injury) Code(s): N17.9 - ACUTE KIDNEY FAILURE, UNSPECIFIED (2) Diabetes type 2, controlled Code(s): E11.9 - TYPE 2 DIABETES MELLITUS WITHOUT COMPLICATIONS (3) Electrolyte abnormality Code(s): E87.8 - OTH DISORDERS OF ELECTROLYTE AND FLUID BALANCE, NEC (4) Hypernatremia Code(s): E87.0 - HYPEROSMOLALITY AND HYPERNATREMIA (5) PNA (pneumonia) Code(s): J18.9 - PNEUMONIA, UNSPECIFIED ORGANISM (6) Sepsis Code(s): A41.9 - SEPSIS, UNSPECIFIED ORGANISM Assessment/Plan 62 year old gentleman with hx of CVA, Dementia, Hx of ETOH abuse, HLD who presented with AMS, Fevers and poor oral intake with encephlopathy/MRSA PNA/ Persistent fevers and Hypernatremia. #Hypernatremia ...trending towards normal. Will monitor periodically. #AMS/Encephlopathy. Seems at his baseline now. #Renal functions normal at this point. Serum Na now improved. Continue free water with NGT as needed. Antibiotics as ordered Will monitor the Renal functions with you. Thanks again. Sarai Gusman MD
--- NOTE | 2018-09-09 15:08 | PN ---
Physical Exam: SUBJECTIVE: Patient seen and examined, no over night events at this time. OBJECTIVE: Vital Signs Period Temp Pulse Resp BP Sys/Cortes Pulse Ox Last 24 Hr 98.4 F-99.4 F 83-91 18-18 112-129/63-88 100 GENERAL: He is awake, not in any distress, is not oriented to any thing which is at his baseline HEAD: Normal with no signs of trauma. EYES: PERRL, extraocular movements intact, sclera anicteric, conjunctiva clear. No ptosis. ENT: Ears normal, nares patent, oropharynx clear without exudates, moist mucous membranes. NECK: Trachea midline, full range of motion, supple. LUNGS: Breath sounds equal, clear to auscultation bilaterally, no wheezes, no crackles, no accessory muscle use. HEART: Regular rate and rhythm, S1, S2 without murmur, rub or gallop. ABDOMEN: Soft, nontender, nondistended, normoactive bowel sounds, no guarding, no rebound, no hepatosplenomegaly, no masses. EXTREMITIES: 2+ pulses, warm, well-perfused, no edema. moves all limbs but is contracted. NEUROLOGICAL: Cranial nerves II through XII grossly intact. Normal speech, gait not observed. PSYCH: Normal mood, normal affect. SKIN: Warm, dry, normal turgor, no rashes or lesions noted Laboratory Results - last 24 hr 09/08/18 09/08/18 09/09/18 17:29 22:57 05:21 POC Glucometer 89 126 125 09/09/18 12:12 POC Glucometer 100 Active Medications Generic Name Dose Route Start Last Admin Trade Name Luz PRN Reason Stop Dose Admin Acetaminophen 650 mg 09/02/18 20:56 09/06/18 17:23 Tylenol Oral Solution - GT 650 mg Q6H PRN Administration FEVER Amino Acids 30 ml 09/06/18 10:00 09/09/18 09:01 Prosource No Carb Liquid Pkt PO 30 ml DAILY ART Administration Ascorbic Acid 500 mg 08/18/18 14:59 09/09/18 09:01 Vitamin C - GT 500 mg DAILY ART Administration Aspirin 81 mg 09/06/18 11:30 09/09/18 09:01 Asa - PEG 81 mg DAILY ART Administration Collagenase 1 applic 08/27/18 15:55 02/18/19 09:02 Santyl - TP 1 applic DAILY ART Administration Protocol Donepezil HCl 10 mg 08/18/18 14:59 09/08/18 23:01 Aricept - GT 10 mg HS ART Administration Heparin Sodium (Porcine) 5,000 unit 09/06/18 14:00 09/09/18 05:24 Heparin - SQ 5,000 unit TID ART Administration Metronidazole 500 mg in 100 mls @ 100 mls/hr 09/04/18 10:00 09/09/18 09:02 Flagyl 500mg Premixed Ivpb - IVPB 100 mls/hr Q8H-IV ART Administration Piperacillin Sod/Tazobactam 50 mls @ 100 mls/hr 09/07/18 18:00 09/09/18 09:02 Sod 3.375 gm/ Dextrose IVPB 100 mls/hr Q8H-IV ART Administration Protocol Insulin Aspart 1 vial 08/13/18 11:00 09/09/18 12:13 Novolog Vial Sliding Scale - SQ Not Given ACHS ART Protocol Lactobacillus Acidophilus 1 tab 09/06/18 10:00 09/09/18 09:01 Bacid - PO 1 tab DAILY ART Administration Loratadine 10 mg 08/22/18 13:45 09/09/18 09:01 Claritin - PO 10 mg DAILY ART Administration Pantoprazole Sodium 40 mg 08/29/18 11:15 09/09/18 09:01 Protonix Iv IVPUSH 40 mg DAILY ART Administration Scopolamine HBr 1 patch 08/23/18 12:00 09/07/18 12:15 Transderm-Scop - TD 1 patch Q72H ART Administration Thiamine HCl 100 mg 08/07/18 22:00 09/08/18 23:00 Vitamin B1 - PO 100 mg HS ART Administration Trihexyphenidyl HCl 1 mg 08/28/18 22:00 09/09/18 09:09 Artane - PO 1 mg BID ART Administration Valproate Sodium 250 mg 08/18/18 22:00 09/09/18 09:01 Depakene - GT 250 mg BID ART Administration Zinc Sulfate 220 mg 08/18/18 15:00 09/09/18 09:01 Orazinc - GT 220 mg DAILY@0800 ART Administration ASSESSMENT/PLAN: He is a 62 y/o M W dementia, alcohol abuse, CVAs, hyperlipidemia P/W poor oral intake and change in mental status was found to have NML. complicated with aspiration PNA. 1. MRSA/aspiration pneumonia: per ID service will DC vancomycin. C/W zosyn and flagyl. No labs for today. He is likely to be DC ready tomorrow pending the final discharge planning. 2. Neuroleptic malignant syndrome - Continue Artane 3. Dementia - Continue Aricept 4. Hypernatremia - better - Receiving free water via GT - Start IV 1/2 NS - Monitor electrolytes 5. Seizure disorder - Continue Depakene 6. Hyperlipidemia: C/W current regimen 7. Anemia - Likely secondary to acute illness - Continue to monitor hgb and transfuse to keep >7.0 8. Unstageable pressure ulcers of left hip and left heel, stage I pressure ulcers of right hip and bilateral buttocks - Continue wound care Visit type - Emergency Visit Emergency Visit: Yes ED Registration Date: 07/28/18 Care time: The patient presented to the Emergency Department on the above date and was hospitalized for further evaluation of their emergent condition. - New Patient This patient is new to me today: No - Critical Care Critical Care patient: No - Discharge Referral Referred to [facility] Med P.C.: No
[2018-09-09] MEDS ORDERED: PT OWN MED DRAWER 7, Y5N ONE (20:52)
[2018-09-09] MEDS: THIAMINE HCL 100 MG TABLET (FP) PO SCH (21:58)
[2018-09-09] MEDS: DONEPEZIL HCL 10 MG TABLET (FP) GT SCH (22:10)
[2018-09-10] MEDS ORDERED: PIPERACILLIN/TAZOBACTAM 3.375 GM VIAL IVPB ONE ×3 (00:44→17:44)
[2018-09-10] MEDS ORDERED: DEXTROSE 5%-WATER - 50 ML IVPB ONE ×3 (00:44→17:44)
[2018-09-10] MEDS: PIPERACILLIN/TAZOB 3.375 GM 3.375 GM in DEXTROSE 5%-WATER - 50 ML IVPB SCH ×3 (02:44→17:51)
[2018-09-10] MEDS: INSULIN SLIDING SCALE (NOVOLOG) 1 VIAL SQ SCH ×4 (06:07→23:18)
[2018-09-10] MEDS: HEPARIN NA (PORCINE) 5,000 UNITS/ML 1ML VIAL SQ SCH ×3 (06:07→23:17)
[2018-09-10 07:30] LABS: ALBUMIN 2.2 g/dl (3.4-5.0); ALK PHOS 88 U/L (45-117); ANION GAP 4 MMOL/L (8-16); BILIRUBIN,TOTAL 0.3 mg/dL (0.2-1); BLOOD UREA NITROGEN 7 mg/dL (7-18); CHLORIDE 109 mmol/L (98-107); CO2 29 mmol/L (21-32); CREATININE 0.5 mg/dL (0.55-1.3); GLUCOSE,RANDOM 108 mg/dL (74-106); POTASSIUM 4.5 mmol/L (3.5-5.1); SGOT/AST 19 U/L (15-37); SGPT/ALT 16 U/L (13-61); SODIUM 142 mmol/L (136-145); TOT PROT 5.3 g/dl (6.4-8.2)
[2018-09-10] MEDS: ZINC SULFATE 220 MG CAPSULE (FP) GT SCH (08:54)
--- NOTE | 2018-09-10 10:02 | PN ---
Physical Exam: SUBJECTIVE: Patient seen and examined at the bedside. contracted. attempting to speak. OBJECTIVE: discharge planning Vital Signs Period Temp Pulse Resp BP Sys/Cortes Pulse Ox Last 24 Hr 98.0 F-99 F 84-91 18-19 119-154/69-88 100 GENERAL: awake, opens eyes intermittently. mumbles a few words HEAD: Normal with no signs of trauma. has increased temporal wasting. EYES: PERRL, extraocular movements intact, sclera anicteric, conjunctiva clear. No ptosis. ENT: Ears normal, nares patent, oropharynx clear without exudates, moist mucous membranes - ngt feeds NECK: Trachea midline, full range of motion, supple. LUNGS: mild congestion anteriorly HEART: Regular rate and rhythm ABDOMEN: Soft, nontender, nondistended, normoactive bowel sounds +peg tube EXTREMITIES: foot edema bilaterally. right hip with evidence of deep tissue injury, left hip with large 6cm x 8cm pressure ulcer unstageable. healing unstegeable left heel pressure ulcer. NEUROLOGICAL: lethargic, at times more awake Laboratory Results - last 24 hr 09/09/18 09/09/18 09/09/18 12:12 17:47 22:04 Sodium Potassium Chloride Carbon Dioxide Anion Gap BUN Creatinine Creat Clearance w eGFR POC Glucometer 100 116 106 Random Glucose Calcium Total Bilirubin AST ALT Alkaline Phosphatase Total Protein Albumin 09/10/18 09/10/18 06:00 06:05 Sodium 142 Potassium 4.5 Chloride 109 H Carbon Dioxide 29 Anion Gap 4 L BUN 7 Creatinine 0.5 L Creat Clearance w eGFR > 60 POC Glucometer 116 Random Glucose 108 H Calcium 8.0 L Total Bilirubin 0.3 AST 19 ALT 16 Alkaline Phosphatase 88 Total Protein 5.3 L Albumin 2.2 L Active Medications Generic Name Dose Route Start Last Admin Trade Name Freq PRN Reason Stop Dose Admin Acetaminophen 650 mg 09/02/18 20:56 09/06/18 17:23 Tylenol Oral Solution - GT 650 mg Q6H PRN Administration FEVER Amino Acids 30 ml 09/06/18 10:00 09/09/18 09:01 Prosource No Carb Liquid Pkt PO 30 ml DAILY ART Administration Ascorbic Acid 500 mg 08/18/18 14:59 09/09/18 09:01 Vitamin C - GT 500 mg DAILY ART Administration Aspirin 81 mg 09/06/18 11:30 09/09/18 09:01 Asa - PEG 81 mg DAILY ART Administration Collagenase 1 applic 08/27/18 15:55 09/09/18 09:02 Santyl - TP 1 applic DAILY ART Administration Protocol Donepezil HCl 10 mg 08/18/18 14:59 09/09/18 22:10 Aricept - GT 10 mg HS ART Administration Heparin Sodium (Porcine) 5,000 unit 09/06/18 14:00 09/10/18 06:07 Heparin - SQ 5,000 unit TID ART Administration Metronidazole 500 mg in 100 mls @ 100 mls/hr 09/04/18 10:00 09/10/18 01:30 Flagyl 500mg Premixed Ivpb - IVPB 100 mls/hr Q8H-IV ART Administration Piperacillin Sod/Tazobactam 50 mls @ 100 mls/hr 09/07/18 18:00 09/10/18 02:44 Sod 3.375 gm/ Dextrose IVPB 100 mls/hr Q8H-IV ART Administration Protocol Insulin Aspart 1 vial 08/13/18 11:00 09/10/18 06:07 Novolog Vial Sliding Scale - SQ Not Given ACHS ART Protocol Lactobacillus Acidophilus 1 tab 09/06/18 10:00 09/09/18 09:01 Bacid - PO 1 tab DAILY ART Administration Loratadine 10 mg 08/22/18 13:45 09/09/18 09:01 Claritin - PO 10 mg DAILY ART Administration Pantoprazole Sodium 40 mg 08/29/18 11:15 09/09/18 09:01 Protonix Iv IVPUSH 40 mg DAILY ART Administration Scopolamine HBr 1 patch 08/23/18 12:00 09/07/18 12:15 Transderm-Scop - TD 1 patch Q72H ART Administration Thiamine HCl 100 mg 08/07/18 22:00 09/09/18 21:58 Vitamin B1 - PO 100 mg HS ART Administration Trihexyphenidyl HCl 1 mg 08/28/18 22:00 09/09/18 21:57 Artane - PO 1 mg BID ART Administration Valproate Sodium 250 mg 08/18/18 22:00 09/09/18 21:57 Depakene - GT 250 mg BID ART Administration Zinc Sulfate 220 mg 08/18/18 15:00 09/10/18 08:54 Orazinc - GT 220 mg DAILY@0800 ART Administration ASSESSMENT/PLAN: Patient is a 62 year old male with history of dementia, prior alcohol abuse, CVA 's, and hyperlipidemia. He presented to the ED with an altered mental status, poor oral intake of oral foods and fluids. Patient was reportedly on haldol and seroquel and has been more lethargic with increased muscle rigidity from NH. ID: Sepsis/Bacteremia/mrsa pneumonia, resolved WBC normalized. on Zosyn, Vanco, Flagyl. ID following. Neuro: Acute metabolic encephalopathy. resolved mental status back to baseline. Neuroleptic malignant syndrome/fevers On artane bid Advanced dementia mental status waxes and wanes. At times alert, at times lethargic Vascular Large unstageable left hip wound and Large left heel wound. continue Santyl Neuro: Seizure Disorder h/o CVA Schizophrenia Alzheimer's Dementia Advanced Dementia Shingles history On ASA 81mg On Valproate 250mg IV BID, Donepezil 10mg PO hs. on Artane bid GI elevated ast/alt, resolved fen monitor electrolytes jevity 1.5 feeds full code. Disposition. awaiting placement. Visit type - Emergency Visit Emergency Visit: Yes ED Registration Date: 07/28/18 Care time: The patient presented to the Emergency Department on the above date and was hospitalized for further evaluation of their emergent condition. - New Patient This patient is new to me today: No - Critical Care Critical Care patient: No - Discharge Referral Referred to [facility] Med P.C.: No
[2018-09-10] MEDS ORDERED: PT OWN MED DRAWER 7, Y5N ONE ×2 (10:14→22:30)
[2018-09-10] MEDS: PANTOPRAZOLE SODIUM 40 MG VIAL IVPUSH SCH (10:32)
[2018-09-10] MEDS: ASCORBIC ACID 500 MG TABLET (FP) GT SCH (10:34)
[2018-09-10] MEDS: LACTOBACILLUS ACIDOPHILUS 1 TABLET PO SCH (10:34)
[2018-09-10] MEDS: AMINO ACIDS/PROTEIN HYDROLYS 30 ML LIQUID.PKT PO SCH (10:34)
[2018-09-10] MEDS: VALPROATE SODIUM 250 MG/5 ML UNIT DOSE CUP GT SCH ×2 (10:34→23:17)
[2018-09-10] MEDS: ASPIRIN 81 MG CHEWABLE TABLETS PEG SCH (10:34)
[2018-09-10] MEDS: LORATADINE 10 MG TABLET PO SCH (10:34)
[2018-09-10] MEDS: COLLAGENASE CLOSTRIDIUM HIST. 30 GRAMS TUBE TP SCH (10:35)
[2018-09-10] MEDS: TRIHEXYPHENIDYL HCL 2 MG TABLET PO SCH ×2 (10:35→23:18)
--- NOTE | 2018-09-10 10:39 | PN ---
Progress Note, Physician Chief Complaint: The patient examined in his bed. Nonverbal. Seems comfortable. Clinical status unchanged. Tube feeding well tolerated. Awake. Afebrile. History of Present Illness: 62 year old gentleman with hx of CVA, Dementia, Hx of ETOH abuse, HLD who presented with AMS, Fevers and poor oral intake with encephlopathy/MRSA Pneumonia/Persistent fevers and Hypernatremia. The IV Antibiotics well tolerated. Renal/Electrolyte profile improving. - Current Medication List Current Medications: Active Medications Acetaminophen (Tylenol Oral Solution -) 650 mg GT Q6H PRN PRN Reason: FEVER Last Admin: 09/06/18 17:23 Dose: 650 mg Amino Acids (Prosource No Carb Liquid Pkt) 30 ml PO DAILY [facility] Last Admin: 09/09/18 09:01 Dose: 30 ml Ascorbic Acid (Vitamin C -) 500 mg GT DAILY ART Last Admin: 09/09/18 09:01 Dose: 500 mg Aspirin (Asa -) 81 mg PEG DAILY ART Last Admin: 09/09/18 09:01 Dose: 81 mg Collagenase (Santyl -) 1 applic TP DAILY [facility]; Protocol Last Admin: 09/09/18 09:02 Dose: 1 applic Donepezil HCl (Aricept -) 10 mg GT HS ART Last Admin: 09/09/18 22:10 Dose: 10 mg Heparin Sodium (Porcine) (Heparin -) 5,000 unit SQ TID ART Last Admin: 09/10/18 06:07 Dose: 5,000 unit Metronidazole (Flagyl 500mg Premixed Ivpb -) 500 mg in 100 mls @ 100 mls/hr IVPB Q8H-IV ART Last Admin: 09/10/18 01:30 Dose: 100 mls/hr Piperacillin Sod/Tazobactam (Sod 3.375 gm/ Dextrose) 50 mls @ 100 mls/hr IVPB Q8H-IV ART; Protocol Last Admin: 09/10/18 02:44 Dose: 100 mls/hr Insulin Aspart (Novolog Vial Sliding Scale -) 1 vial SQ ACHS ART; Protocol Last Admin: 09/10/18 06:07 Dose: Not Given Lactobacillus Acidophilus (Bacid -) 1 tab PO DAILY ART Last Admin: 09/09/18 09:01 Dose: 1 tab Loratadine (Claritin -) 10 mg PO DAILY ART Last Admin: 09/09/18 09:01 Dose: 10 mg Pantoprazole Sodium (Protonix Iv) 40 mg IVPUSH DAILY [facility] Last Admin: 09/09/18 09:01 Dose: 40 mg Scopolamine HBr (Transderm-Scop -) 1 patch TD Q72H [facility] Last Admin: 09/07/18 12:15 Dose: 1 patch Thiamine HCl (Vitamin B1 -) 100 mg PO HS [facility] Last Admin: 09/09/18 21:58 Dose: 100 mg Trihexyphenidyl HCl (Artane -) 1 mg PO BID [facility] Last Admin: 09/09/18 21:57 Dose: 1 mg Valproate Sodium (Depakene -) 250 mg GT BID [facility] Last Admin: 09/09/18 21:57 Dose: 250 mg Zinc Sulfate (Orazinc -) 220 mg GT DAILY@0800 [facility] Last Admin: 09/10/18 08:54 Dose: 220 mg - Objective Vital Signs: Vital Signs Temperature 98.4 F 09/10/18 06:00 Pulse Rate 86 09/10/18 06:00 Respiratory Rate 19 09/10/18 06:00 Blood Pressure 134/83 09/10/18 06:00 O2 Sat by Pulse Oximetry (%) 100 09/09/18 21:00 Constitutional: Yes: No Distress, Calm HENT: Yes: Normocephalic Neck: Yes: Trachea Midline Cardiovascular: Yes: S1, S2 Respiratory: Yes: CTA Bilaterally Gastrointestinal: Yes: Normal Bowel Sounds, Soft, Other (G tube feeding in progress.) Genitourinary: No: CVA Tenderness - Left, CVA Tenderness - Right Edema: No Labs: CBC, BMP 09/07/18 11:20 09/10/18 06:00 INR, PTT INR 1.21 (0.83-1.09) H 09/02/18 07:45 Problem List - Problems (1) MEE (acute kidney injury) Code(s): N17.9 - ACUTE KIDNEY FAILURE, UNSPECIFIED (2) Diabetes type 2, controlled Code(s): E11.9 - TYPE 2 DIABETES MELLITUS WITHOUT COMPLICATIONS (3) Electrolyte abnormality Code(s): E87.8 - OTH DISORDERS OF ELECTROLYTE AND FLUID BALANCE, NEC (4) Hypernatremia Code(s): E87.0 - HYPEROSMOLALITY AND HYPERNATREMIA (5) PNA (pneumonia) Code(s): J18.9 - PNEUMONIA, UNSPECIFIED ORGANISM (6) Sepsis Code(s): A41.9 - SEPSIS, UNSPECIFIED ORGANISM Assessment/Plan 62 year old gentleman with hx of CVA, Dementia, Hx of ETOH abuse, HLD who presented with AMS, Fevers and poor oral intake with encephlopathy/MRSA PNA/ Persistent fevers and Hypernatremia. #Hypernatremia ...trending towards normal. Will monitor periodically. #AMS/Encephlopathy. Seems at his baseline now. #Renal functions normal at this point. Serum Na now improved. Today it is 142 mEq/L Continue free water with NGT as needed. Antibiotics as ordered Will monitor the Renal functions with you. Thanks again. Sarai Gusman MD
[2018-09-10] MEDS: SCOPOLAMINE HYDROBROMIDE 1 PATCH PATCH.TD72 TD SCH (12:39)
--- NOTE | 2018-09-10 13:34 | PN ---
Progress Note, Physician - Current Medication List Current Medications: Active Medications Acetaminophen (Tylenol Oral Solution -) 650 mg GT Q6H PRN PRN Reason: FEVER Last Admin: 09/06/18 17:23 Dose: 650 mg Amino Acids (Prosource No Carb Liquid Pkt) 30 ml PO DAILY [facility] Last Admin: 09/10/18 10:34 Dose: 30 ml Ascorbic Acid (Vitamin C -) 500 mg GT DAILY ART Last Admin: 09/10/18 10:34 Dose: 500 mg Aspirin (Asa -) 81 mg PEG DAILY ART Last Admin: 09/10/18 10:34 Dose: 81 mg Collagenase (Santyl -) 1 applic TP DAILY [facility]; Protocol Last Admin: 09/10/18 10:35 Dose: 1 applic Donepezil HCl (Aricept -) 10 mg GT HS [facility] Last Admin: 09/09/18 22:10 Dose: 10 mg Heparin Sodium (Porcine) (Heparin -) 5,000 unit SQ TID ART Last Admin: 09/10/18 06:07 Dose: 5,000 unit Metronidazole (Flagyl 500mg Premixed Ivpb -) 500 mg in 100 mls @ 100 mls/hr IVPB Q8H-IV ART Last Admin: 09/10/18 10:31 Dose: 100 mls/hr Piperacillin Sod/Tazobactam (Sod 3.375 gm/ Dextrose) 50 mls @ 100 mls/hr IVPB Q8H-IV [facility]; Protocol Last Admin: 09/10/18 10:32 Dose: 100 mls/hr Insulin Aspart (Novolog Vial Sliding Scale -) 1 vial SQ ACHS [facility]; Protocol Last Admin: 09/10/18 11:26 Dose: Not Given Lactobacillus Acidophilus (Bacid -) 1 tab PO DAILY ART Last Admin: 09/10/18 10:34 Dose: 1 tab Loratadine (Claritin -) 10 mg PO DAILY ART Last Admin: 09/10/18 10:34 Dose: 10 mg Pantoprazole Sodium (Protonix Iv) 40 mg IVPUSH DAILY [facility] Last Admin: 09/10/18 10:32 Dose: 40 mg Scopolamine HBr (Transderm-Scop -) 1 patch TD Q72H ART Last Admin: 09/10/18 12:39 Dose: 1 patch Thiamine HCl (Vitamin B1 -) 100 mg PO HS [facility] Last Admin: 09/09/18 21:58 Dose: 100 mg Trihexyphenidyl HCl (Artane -) 1 mg PO BID [facility] Last Admin: 09/10/18 10:35 Dose: 1 mg Valproate Sodium (Depakene -) 250 mg GT BID [facility] Last Admin: 09/10/18 10:34 Dose: 250 mg Zinc Sulfate (Orazinc -) 220 mg GT DAILY@0800 [facility] Last Admin: 09/10/18 08:54 Dose: 220 mg - Objective Vital Signs: Vital Signs Temperature 98.4 F 09/10/18 06:00 Pulse Rate 86 09/10/18 06:00 Respiratory Rate 09/10/18 06:00 Blood Pressure 134/83 09/10/18 06:00 O2 Sat by Pulse Oximetry (%) 100 09/09/18 21:00 Labs: CBC, BMP 09/07/18 11:20 09/10/18 06:00 INR, PTT INR 1.21 (0.83-1.09) H 09/02/18 07:45
[2018-09-10] MEDS: DONEPEZIL HCL 10 MG TABLET (FP) GT SCH (23:17)
[2018-09-10] MEDS: THIAMINE HCL 100 MG TABLET (FP) PO SCH (23:18)
[2018-09-11] MEDS ORDERED: DEXTROSE 5%-WATER - 50 ML IVPB ONE ×3 (01:29→15:29)
[2018-09-11] MEDS ORDERED: PIPERACILLIN/TAZOBACTAM 3.375 GM VIAL IVPB ONE ×3 (01:29→15:28)
[2018-09-11] MEDS: PIPERACILLIN/TAZOB 3.375 GM 3.375 GM in DEXTROSE 5%-WATER - 50 ML IVPB SCH ×3 (02:38→17:43)
[2018-09-11] MEDS: HEPARIN NA (PORCINE) 5,000 UNITS/ML 1ML VIAL SQ SCH ×3 (06:27→22:56)
[2018-09-11] MEDS: INSULIN SLIDING SCALE (NOVOLOG) 1 VIAL SQ SCH ×4 (06:27→22:55)
[2018-09-11] MEDS: ZINC SULFATE 220 MG CAPSULE (FP) GT SCH (09:04)
[2018-09-11 10:05] LABS: BASO % 0.3 % (0-2.0); EOS % 0.8 % (0-4.5); HEMATOCRIT 24.8 % (35.4-49); HEMOGLOBIN 8.6 GM/dL (11.7-16.9); MCH 32.7 pg (25.7-33.7); MCHC 34.6 g/dl (32.0-35.9); MEAN CELL VOLUME 94.7 fl (80-96); MEAN PLT VOLUME 9.6 fl (7.5-11.1); MONO % 8.3 % (3.8-10.2); NEUT % 77.6 % (42.8-82.8); PLATELET COUNT 324 K/MM3 (134-434); RBC 2.62 M/mm3 (4.00-5.60); RDW 22.3 % (11.9-15.9); WHITE BLOOD COUNT 8.4 K/mm3 (4.0-10.0)
[2018-09-11] MEDS: LACTOBACILLUS ACIDOPHILUS 1 TABLET PO SCH (10:05)
--- NOTE | 2018-09-11 10:07 | PN ---
Progress Note, Physician History of Present Illness: patient doing well no new issues looks much better awake and alert - Current Medication List Current Medications: Active Medications Acetaminophen (Tylenol Oral Solution -) 650 mg GT Q6H PRN PRN Reason: FEVER Last Admin: 09/06/18 17:23 Dose: 650 mg Amino Acids (Prosource No Carb Liquid Pkt) 30 ml PO DAILY [facility] Last Admin: 09/10/18 10:34 Dose: 30 ml Ascorbic Acid (Vitamin C -) 500 mg GT DAILY ART Last Admin: 09/10/18 10:34 Dose: 500 mg Aspirin (Asa -) 81 mg PEG DAILY [facility] Last Admin: 09/10/18 10:34 Dose: 81 mg Collagenase (Santyl -) 1 applic TP DAILY [facility]; Protocol Last Admin: 09/10/18 10:35 Dose: 1 applic Donepezil HCl (Aricept -) 10 mg GT HS [facility] Last Admin: 09/10/18 23:17 Dose: 10 mg Heparin Sodium (Porcine) (Heparin -) 5,000 unit SQ TID [facility] Last Admin: 09/11/18 06:27 Dose: 5,000 unit Metronidazole (Flagyl 500mg Premixed Ivpb -) 500 mg in 100 mls @ 100 mls/hr IVPB Q8H-IV [facility] Last Admin: 09/11/18 01:33 Dose: 100 mls/hr Piperacillin Sod/Tazobactam (Sod 3.375 gm/ Dextrose) 50 mls @ 100 mls/hr IVPB Q8H-IV [facility]; Protocol Last Admin: 09/11/18 02:38 Dose: 100 mls/hr Insulin Aspart (Novolog Vial Sliding Scale -) 1 vial SQ ACHS [facility]; Protocol Last Admin: 09/11/18 06:27 Dose: Not Given Lactobacillus Acidophilus (Bacid -) 1 tab PO DAILY [facility] Last Admin: 09/10/18 10:34 Dose: 1 tab Loratadine (Claritin -) 10 mg PO DAILY [facility] Last Admin: 09/10/18 10:34 Dose: 10 mg Pantoprazole Sodium (Protonix Iv) 40 mg IVPUSH DAILY [facility] Last Admin: 09/10/18 10:32 Dose: 40 mg Scopolamine HBr (Transderm-Scop -) 1 patch TD Q72H [facility] Last Admin: 09/10/18 12:39 Dose: 1 patch Thiamine HCl (Vitamin B1 -) 100 mg PO HS [facility] Last Admin: 09/10/18 23:18 Dose: 100 mg Trihexyphenidyl HCl (Artane -) 1 mg PO BID [facility] Last Admin: 09/10/18 23:18 Dose: 1 mg Valproate Sodium (Depakene -) 250 mg GT BID [facility] Last Admin: 09/10/18 23:17 Dose: 250 mg Zinc Sulfate (Orazinc -) 220 mg GT DAILY@0800 [facility] Last Admin: 09/10/18 08:54 Dose: 220 mg - Objective Vital Signs: Vital Signs Temperature 98.4 F 09/11/18 06:00 Pulse Rate 113 H 09/11/18 06:00 Respiratory Rate 18 09/11/18 06:00 Blood Pressure 128/71 09/11/18 06:00 O2 Sat by Pulse Oximetry (%) 100 09/10/18 21:00 Constitutional: Yes: No Distress, Calm Cardiovascular: Yes: S1, S2 Respiratory: Yes: Regular, CTA Bilaterally Gastrointestinal: Yes: Other (g tube in place) Musculoskeletal: Yes: WNL Extremities: Yes: WNL Neurological: Yes: Alert, Other Psychiatric: Yes: Other Labs: INR, PTT INR 1.21 (0.83-1.09) H 09/02/18 07:45 Assessment/Plan also now patient is coughing and producing sputum Altered Mental Status r/o Neuroleptic Malignant Syndrome r/o Seizures Seizure Disorder h/o CVA Schizophrenia Alzheimer's Dementia drug reaction mrsa pneumonia gm negative bactermia plan patient stable no new issues rest as per the team nutrition
[2018-09-11 10:27] LABS: ALBUMIN 2.2 g/dl (3.4-5.0); ALK PHOS 90 U/L (45-117); ANION GAP 4 MMOL/L (8-16); BILIRUBIN,TOTAL 0.2 mg/dL (0.2-1); BLOOD UREA NITROGEN 8 mg/dL (7-18); CALCIUM 8.6 mg/dL (8.5-10.1); CHLORIDE 107 mmol/L (98-107); CO2 30 mmol/L (21-32); CREATININE 0.5 mg/dL (0.55-1.3); GLUCOSE,RANDOM 101 mg/dL (74-106); POTASSIUM 4.4 mmol/L (3.5-5.1); SGOT/AST 20 U/L (15-37); SGPT/ALT 21 U/L (13-61); SODIUM 141 mmol/L (136-145); TOT PROT 5.7 g/dl (6.4-8.2)
--- NOTE | 2018-09-11 10:30 | PN ---
Physical Exam: SUBJECTIVE: Patient seen and examined at the bedside. awake, alert. attempting to ambulate. patient for discharge, awaiting bed offer. OBJECTIVE: discharge planning. awaiting bed offer Vital Signs Period Temp Pulse Resp BP Sys/Cortes Pulse Ox Last 24 Hr 97.8 F-98.4 F 79-113 18-19 93-150/71-82 100 GENERAL: awake, opens eyes intermittently. mumbles a few words HEAD: Normal with no signs of trauma. has increased temporal wasting. EYES: PERRL, extraocular movements intact, sclera anicteric, conjunctiva clear. No ptosis. ENT: Ears normal, nares patent, oropharynx clear without exudates, moist mucous membranes - ngt feeds NECK: Trachea midline, full range of motion, supple. LUNGS: mild congestion anteriorly HEART: Regular rate and rhythm ABDOMEN: +peg tube EXTREMITIES: foot edema bilaterally. right hip with evidence of deep tissue injury, left hip with large 6cm x 8cm pressure ulcer unstageable. healing unstegeable left heel pressure ulcer. NEUROLOGICAL: awake, alert Laboratory Results - last 24 hr 09/10/18 09/10/18 09/10/18 11:23 17:03 23:16 WBC RBC Hgb Hct MCV MCH MCHC RDW Plt Count MPV Absolute Neuts (auto) Neutrophils % Lymphocytes % Monocytes % Eosinophils % Basophils % Nucleated RBC % Sodium Potassium Chloride Carbon Dioxide Anion Gap BUN Creatinine Creat Clearance w eGFR POC Glucometer 126 106 107 Random Glucose Calcium Magnesium Total Bilirubin AST ALT Alkaline Phosphatase Total Protein Albumin 09/11/18 09/11/18 09/11/18 06:25 09:30 09:30 WBC 8.4 RBC 2.62 L Hgb 8.6 L Hct 24.8 L MCV 94.7 MCH 32.7 MCHC 34.6 RDW 22.3 H Plt Count 324 MPV 9.6 Absolute Neuts (auto) 6.5 Neutrophils % 77.6 Lymphocytes % 13.0 Monocytes % 8.3 Eosinophils % 0.8 Basophils % 0.3 Nucleated RBC % 0 Sodium 141 Potassium 4.4 Chloride 107 Carbon Dioxide 30 Anion Gap 4 L BUN 8 Creatinine 0.5 L Creat Clearance w eGFR > 60 POC Glucometer 128 Random Glucose 101 Calcium 8.6 Magnesium 2.0 Total Bilirubin 0.2 AST 20 ALT 21 Alkaline Phosphatase 90 Total Protein 5.7 L Albumin 2.2 L Active Medications Generic Name Dose Route Start Last Admin Trade Name Reginoq PRN Reason Stop Dose Admin Acetaminophen 650 mg 09/02/18 20:56 09/06/18 17:23 Tylenol Oral Solution - GT 650 mg Q6H PRN Administration FEVER Amino Acids 30 ml 09/06/18 10:00 09/10/18 10:34 Prosource No Carb Liquid Pkt PO 30 ml DAILY ART Administration Ascorbic Acid 500 mg 08/18/18 14:59 09/10/18 10:34 Vitamin C - GT 500 mg DAILY ART Administration Aspirin 81 mg 09/06/18 11:30 09/10/18 10:34 Asa - PEG 81 mg DAILY ART Administration Collagenase 1 applic 08/27/18 15:55 09/10/18 10:35 Santyl - TP 1 applic DAILY ART Administration Protocol Donepezil HCl 10 mg 08/18/18 14:59 09/10/18 23:17 Aricept - GT 10 mg HS ART Administration Heparin Sodium (Porcine) 5,000 unit 09/06/18 14:00 09/11/18 06:27 Heparin - SQ 5,000 unit TID ART Administration Metronidazole 500 mg in 100 mls @ 100 mls/hr 09/04/18 10:00 09/11/18 01:33 Flagyl 500mg Premixed Ivpb - IVPB 100 mls/hr Q8H-IV ART Administration Piperacillin Sod/Tazobactam 50 mls @ 100 mls/hr 09/07/18 18:00 09/11/18 02:38 Sod 3.375 gm/ Dextrose IVPB 100 mls/hr Q8H-IV ART Administration Protocol Insulin Aspart 1 vial 08/13/18 11:00 09/11/18 06:27 Novolog Vial Sliding Scale - SQ Not Given ACHS ART Protocol Lactobacillus Acidophilus 1 tab 09/06/18 10:00 09/10/18 10:34 Bacid - PO 1 tab DAILY ART Administration Loratadine 10 mg 08/22/18 13:45 09/10/18 10:34 Claritin - PO 10 mg DAILY ART Administration Pantoprazole Sodium 40 mg 08/29/18 11:15 09/10/18 10:32 Protonix Iv IVPUSH 40 mg DAILY ART Administration Scopolamine HBr 1 patch 08/23/18 12:00 09/10/18 12:39 Transderm-Scop - TD 1 patch Q72H ART Administration Thiamine HCl 100 mg 08/07/18 22:00 09/10/18 23:18 Vitamin B1 - PO 100 mg HS ART Administration Trihexyphenidyl HCl 1 mg 08/28/18 22:00 09/10/18 23:18 Artane - PO 1 mg BID ART Administration Valproate Sodium 250 mg 08/18/18 22:00 09/10/18 23:17 Depakene - GT 250 mg BID ART Administration Zinc Sulfate 220 mg 08/18/18 15:00 09/10/18 08:54 Orazinc - GT 220 mg DAILY@0800 ART Administration ASSESSMENT/PLAN: Patient is a 62 year old male with history of dementia, prior alcohol abuse, CVA 's, and hyperlipidemia. He presented to the ED with an altered mental status, poor oral intake of oral foods and fluids. Patient was reportedly on haldol and seroquel and has been more lethargic with increased muscle rigidity from NH. ID: Sepsis/Bacteremia/mrsa pneumonia, resolved. WBC normalized. on Zosyn, Vanco, Flagyl. ID following. Neuro: Acute metabolic encephalopathy. resolved mental status back to baseline. Neuroleptic malignant syndrome/fevers On artane bid Advanced dementia. mental status waxes and wanes. At times alert, at times lethargic Vascular Large unstageable left hip wound and Large left heel wound. continue Santyl. Neuro: Seizure Disorder h/o CVA Schizophrenia Alzheimer's Dementia Advanced Dementia Shingles history On ASA 81mg On Valproate 250mg IV BID, Donepezil 10mg PO hs. on Artane bid GI elevated ast/alt, resolved fen monitor electrolytes jevity 1.5 feeds full code. Disposition. awaiting placement. discharge planning. Visit type - Emergency Visit Emergency Visit: Yes ED Registration Date: 07/28/18 Care time: The patient presented to the Emergency Department on the above date and was hospitalized for further evaluation of their emergent condition. - New Patient This patient is new to me today: No - Critical Care Critical Care patient: No - Discharge Referral Referred to [facility] Med P.C.: No
[2018-09-11] MEDS: AMINO ACIDS/PROTEIN HYDROLYS 30 ML LIQUID.PKT PO SCH (11:02)
[2018-09-11] MEDS: LORATADINE 10 MG TABLET PO SCH (11:03)
[2018-09-11] MEDS: ASCORBIC ACID 500 MG TABLET (FP) GT SCH (11:04)
[2018-09-11] MEDS: ASPIRIN 81 MG CHEWABLE TABLETS PEG SCH (11:04)
[2018-09-11] MEDS: VALPROATE SODIUM 250 MG/5 ML UNIT DOSE CUP GT SCH ×2 (11:05→22:55)
[2018-09-11] MEDS: PANTOPRAZOLE SODIUM 40 MG VIAL IVPUSH SCH (11:05)
[2018-09-11] MEDS: TRIHEXYPHENIDYL HCL 2 MG TABLET PO SCH ×2 (11:07→22:55)
[2018-09-11] MEDS: COLLAGENASE CLOSTRIDIUM HIST. 30 GRAMS TUBE TP SCH (12:06)
[2018-09-11 15:04] LABS: ANISOCYTOSIS 1+; MACROCYTOSIS 1+; PLATELET ESTIMATE NORMAL
--- NOTE | 2018-09-11 15:45 | PN ---
Progress Note, Physician Chief Complaint: The patient examined in his bed. Nonverbal. Seems comfortable. Clinical status unchanged. Tube feeding well tolerated. Awake. Overall much better. History of Present Illness: 62 year old gentleman with hx of CVA, Dementia, Hx of ETOH abuse, HLD who presented with AMS, Fevers and poor oral intake with encephlopathy/MRSA Pneumonia/Persistent fevers and Hypernatremia. Still on IV Antibiotics. Renal/Electrolyte profile improving and near his baseline. - Current Medication List Current Medications: Active Medications Acetaminophen (Tylenol Oral Solution -) 650 mg GT Q6H PRN PRN Reason: FEVER Last Admin: 09/06/18 17:23 Dose: 650 mg Amino Acids (Prosource No Carb Liquid Pkt) 30 ml PO DAILY [facility] Last Admin: 09/11/18 11:02 Dose: 30 ml Ascorbic Acid (Vitamin C -) 500 mg GT DAILY ART Last Admin: 09/11/18 11:04 Dose: 500 mg Aspirin (Asa -) 81 mg PEG DAILY ART Last Admin: 09/11/18 11:04 Dose: 81 mg Collagenase (Santyl -) 1 applic TP DAILY ART; Protocol Last Admin: 09/11/18 12:06 Dose: 1 applic Donepezil HCl (Aricept -) 10 mg GT HS ART Last Admin: 09/10/18 23:17 Dose: 10 mg Heparin Sodium (Porcine) (Heparin -) 5,000 unit SQ TID ART Last Admin: 09/11/18 06:27 Dose: 5,000 unit Metronidazole (Flagyl 500mg Premixed Ivpb -) 500 mg in 100 mls @ 100 mls/hr IVPB Q8H-IV ART Last Admin: 09/11/18 11:06 Dose: 100 mls/hr Piperacillin Sod/Tazobactam (Sod 3.375 gm/ Dextrose) 50 mls @ 100 mls/hr IVPB Q8H-IV ART; Protocol Last Admin: 09/11/18 12:00 Dose: 100 mls/hr Insulin Aspart (Novolog Vial Sliding Scale -) 1 vial SQ ACHS ART; Protocol Last Admin: 09/11/18 12:10 Dose: Not Given Lactobacillus Acidophilus (Bacid -) 1 tab PO DAILY ART Last Admin: 09/11/18 10:05 Dose: 1 tab Loratadine (Claritin -) 10 mg PO DAILY ART Last Admin: 09/11/18 11:03 Dose: 10 mg Pantoprazole Sodium (Protonix Iv) 40 mg IVPUSH DAILY [facility] Last Admin: 09/11/18 11:05 Dose: 40 mg Scopolamine HBr (Transderm-Scop -) 1 patch TD Q72H [facility] Last Admin: 09/10/18 12:39 Dose: 1 patch Thiamine HCl (Vitamin B1 -) 100 mg PO HS [facility] Last Admin: 09/10/18 23:18 Dose: 100 mg Trihexyphenidyl HCl (Artane -) 1 mg PO BID [facility] Last Admin: 09/11/18 11:07 Dose: 1 mg Valproate Sodium (Depakene -) 250 mg GT BID [facility] Last Admin: 09/11/18 11:05 Dose: 250 mg Zinc Sulfate (Orazinc -) 220 mg GT DAILY@0800 [facility] Last Admin: 09/11/18 09:04 Dose: 220 mg - Objective Vital Signs: Vital Signs Temperature 97.8 F 09/11/18 15:08 Pulse Rate 102 H 09/11/18 15:08 Respiratory Rate 09/11/18 15:08 Blood Pressure 141/77 09/11/18 15:08 O2 Sat by Pulse Oximetry (%) 100 09/10/18 21:00 Constitutional: Yes: No Distress, Calm HENT: Yes: Atraumatic, Normocephalic Neck: Yes: Supple Cardiovascular: Yes: Pulse Irregular, S1, S2 Respiratory: Yes: CTA Bilaterally Gastrointestinal: Yes: Normal Bowel Sounds, Soft, Other (Gtube in place.) Edema: No Labs: CBC, BMP 09/11/18 09:30 09/11/18 09:30 INR, PTT INR 1.21 (0.83-1.09) H 09/02/18 07:45 Problem List - Problems (1) MEE (acute kidney injury) Code(s): N17.9 - ACUTE KIDNEY FAILURE, UNSPECIFIED (2) Diabetes type 2, controlled Code(s): E11.9 - TYPE 2 DIABETES MELLITUS WITHOUT COMPLICATIONS (3) Electrolyte abnormality Code(s): E87.8 - OTH DISORDERS OF ELECTROLYTE AND FLUID BALANCE, NEC (4) Hypernatremia Code(s): E87.0 - HYPEROSMOLALITY AND HYPERNATREMIA (5) PNA (pneumonia) Code(s): J18.9 - PNEUMONIA, UNSPECIFIED ORGANISM (6) Sepsis Code(s): A41.9 - SEPSIS, UNSPECIFIED ORGANISM Assessment/Plan 62 year old gentleman with hx of CVA, Dementia, Hx of ETOH abuse, HLD who presented with AMS, Fevers and poor oral intake with encephlopathy/MRSA PNA/ Persistent fevers and Hypernatremia. #Hypernatremia ...Almost normal. #AMS/Encephlopathy. Seems at his baseline now. #Renal functions normal at this point. Serum Na now improved. Continue free water with NGT as needed. Antibiotics as ordered Will monitor the Renal functions with you. Thanks again. Sarai Gusman MD
[2018-09-11] MEDS ORDERED: PT OWN MED DRAWER 7, Y5N ONE (22:51)
[2018-09-11] MEDS: DONEPEZIL HCL 10 MG TABLET (FP) GT SCH (22:55)
[2018-09-11] MEDS: THIAMINE HCL 100 MG TABLET (FP) PO SCH (22:55)
[2018-09-12] MEDS ORDERED: DEXTROSE 5%-WATER - 50 ML IVPB ONE ×3 (01:52→17:16)
[2018-09-12] MEDS ORDERED: PIPERACILLIN/TAZOBACTAM 3.375 GM VIAL IVPB ONE ×3 (01:52→17:15)
[2018-09-12] MEDS: PIPERACILLIN/TAZOB 3.375 GM 3.375 GM in DEXTROSE 5%-WATER - 50 ML IVPB SCH ×3 (02:42→17:20)
[2018-09-12] MEDS: HEPARIN NA (PORCINE) 5,000 UNITS/ML 1ML VIAL SQ SCH ×3 (06:05→22:18)
[2018-09-12] MEDS: INSULIN SLIDING SCALE (NOVOLOG) 1 VIAL SQ SCH ×4 (06:05→22:26)
[2018-09-12] MEDS ORDERED: PT OWN MED DRAWER 7, Y5N ONE (09:11)
[2018-09-12] MEDS: PANTOPRAZOLE SODIUM 40 MG VIAL IVPUSH SCH (09:15)
[2018-09-12] MEDS: LORATADINE 10 MG TABLET PO SCH (09:15)
[2018-09-12] MEDS: AMINO ACIDS/PROTEIN HYDROLYS 30 ML LIQUID.PKT PO SCH (09:15)
[2018-09-12] MEDS: LACTOBACILLUS ACIDOPHILUS 1 TABLET PO SCH (09:16)
[2018-09-12] MEDS: ZINC SULFATE 220 MG CAPSULE (FP) GT SCH (09:16)
[2018-09-12] MEDS: TRIHEXYPHENIDYL HCL 2 MG TABLET PO SCH ×2 (09:16→22:17)
[2018-09-12] MEDS: ASPIRIN 81 MG CHEWABLE TABLETS PEG SCH (09:16)
[2018-09-12] MEDS: ASCORBIC ACID 500 MG TABLET (FP) GT SCH (09:16)
[2018-09-12] MEDS: VALPROATE SODIUM 250 MG/5 ML UNIT DOSE CUP GT SCH (09:18)
--- NOTE | 2018-09-12 09:34 | PN ---
Progress Note, Physician Chief Complaint: The patient seen and examined in his bed. Nonverbal. Seems comfortable. Clinical status unchanged. Tube feeding well tolerated. Awake. History of Present Illness: 62 year old gentleman with hx of CVA, Dementia, Hx of ETOH abuse, HLD who presented with AMS, Fevers and poor oral intake with encephlopathy/MRSA Pneumonia/Persistent fevers and Hypernatremia. Still on IV Antibiotics. Renal/Electrolyte profile improving and near his baseline. - Current Medication List Current Medications: Active Medications Acetaminophen (Tylenol Oral Solution -) 650 mg GT Q6H PRN PRN Reason: FEVER Last Admin: 09/06/18 17:23 Dose: 650 mg Amino Acids (Prosource No Carb Liquid Pkt) 30 ml PO DAILY ART Last Admin: 09/12/18 09:15 Dose: 30 ml Ascorbic Acid (Vitamin C -) 500 mg GT DAILY ART Last Admin: 09/12/18 09:16 Dose: 500 mg Aspirin (Asa -) 81 mg PEG DAILY ART Last Admin: 09/12/18 09:16 Dose: 81 mg Collagenase (Santyl -) 1 applic TP DAILY ART; Protocol Last Admin: 09/11/18 12:06 Dose: 1 applic Donepezil HCl (Aricept -) 10 mg GT HS ART Last Admin: 09/11/18 22:55 Dose: 10 mg Heparin Sodium (Porcine) (Heparin -) 5,000 unit SQ TID ART Last Admin: 09/12/18 06:05 Dose: 5,000 unit Metronidazole (Flagyl 500mg Premixed Ivpb -) 500 mg in 100 mls @ 100 mls/hr IVPB Q8H-IV ART Last Admin: 09/12/18 02:00 Dose: 100 mls/hr Piperacillin Sod/Tazobactam (Sod 3.375 gm/ Dextrose) 50 mls @ 100 mls/hr IVPB Q8H-IV ART; Protocol Last Admin: 09/12/18 09:14 Dose: 100 mls/hr Insulin Aspart (Novolog Vial Sliding Scale -) 1 vial SQ ACHS ART; Protocol Last Admin: 09/12/18 06:05 Dose: Not Given Lactobacillus Acidophilus (Bacid -) 1 tab PO DAILY ART Last Admin: 09/12/18 09:16 Dose: 1 tab Loratadine (Claritin -) 10 mg PO DAILY ART Last Admin: 09/12/18 09:15 Dose: 10 mg Pantoprazole Sodium (Protonix Iv) 40 mg IVPUSH DAILY [facility] Last Admin: 09/12/18 09:15 Dose: 40 mg Scopolamine HBr (Transderm-Scop -) 1 patch TD Q72H [facility] Last Admin: 09/10/18 12:39 Dose: 1 patch Thiamine HCl (Vitamin B1 -) 100 mg PO HS [facility] Last Admin: 09/11/18 22:55 Dose: 100 mg Trihexyphenidyl HCl (Artane -) 1 mg PO BID [facility] Last Admin: 09/12/18 09:16 Dose: 1 mg Valproate Sodium (Depakene -) 250 mg GT BID [facility] Last Admin: 09/12/18 09:18 Dose: 250 mg Zinc Sulfate (Orazinc -) 220 mg GT DAILY@0800 [facility] Last Admin: 09/12/18 09:16 Dose: 220 mg - Objective Vital Signs: Vital Signs Temperature 98.4 F 09/12/18 05:41 Pulse Rate 86 09/12/18 05:41 Respiratory Rate 18 09/12/18 05:41 Blood Pressure 115/66 09/12/18 05:41 O2 Sat by Pulse Oximetry (%) 100 09/11/18 21:00 Constitutional: Yes: Well Nourished, Calm Eyes: Yes: Conjunctiva Clear HENT: Yes: Normocephalic Cardiovascular: Yes: Regular Rate and Rhythm, S1, S2 Respiratory: Yes: CTA Bilaterally, Diminished Gastrointestinal: Yes: Normal Bowel Sounds, Soft, Other (G-tube in place) Genitourinary: No: Bladder Distention Edema: No Neurological: Yes: Alert Labs: CBC, BMP 09/11/18 09:30 09/11/18 09:30 INR, PTT INR 1.21 (0.83-1.09) H 09/02/18 07:45 Problem List - Problems (1) MEE (acute kidney injury) Code(s): N17.9 - ACUTE KIDNEY FAILURE, UNSPECIFIED (2) Diabetes type 2, controlled Code(s): E11.9 - TYPE 2 DIABETES MELLITUS WITHOUT COMPLICATIONS (3) Electrolyte abnormality Code(s): E87.8 - OTH DISORDERS OF ELECTROLYTE AND FLUID BALANCE, NEC (4) Hypernatremia Code(s): E87.0 - HYPEROSMOLALITY AND HYPERNATREMIA (5) PNA (pneumonia) Code(s): J18.9 - PNEUMONIA, UNSPECIFIED ORGANISM (6) Sepsis Code(s): A41.9 - SEPSIS, UNSPECIFIED ORGANISM Assessment/Plan 62 year old gentleman with hx of CVA, Dementia, Hx of ETOH abuse, HLD who presented with AMS, Fevers and poor oral intake with encephlopathy/MRSA PNA/ Persistent fevers and Hypernatremia. #Hypernatremia ...Almost normal. #AMS/Encephlopathy. Seems to be at his baseline now. #Renal functions normal at this point. Serum Na now improved. Continue free water with NGT as needed. Antibiotics as ordered Will monitor the Renal functions with you. Thanks again. Sarai Gusman MD
--- NOTE | 2018-09-12 11:32 | PN ---
Progress Note, Physician - Current Medication List Current Medications: Active Medications Acetaminophen (Tylenol Oral Solution -) 650 mg GT Q6H PRN PRN Reason: FEVER Last Admin: 09/06/18 17:23 Dose: 650 mg Amino Acids (Prosource No Carb Liquid Pkt) 30 ml PO DAILY [facility] Last Admin: 09/12/18 09:15 Dose: 30 ml Ascorbic Acid (Vitamin C -) 500 mg GT DAILY ART Last Admin: 09/12/18 09:16 Dose: 500 mg Aspirin (Asa -) 81 mg PEG DAILY ART Last Admin: 09/12/18 09:16 Dose: 81 mg Collagenase (Santyl -) 1 applic TP DAILY [facility]; Protocol Last Admin: 09/11/18 12:06 Dose: 1 applic Donepezil HCl (Aricept -) 10 mg GT HS [facility] Last Admin: 09/11/18 22:55 Dose: 10 mg Heparin Sodium (Porcine) (Heparin -) 5,000 unit SQ TID ART Last Admin: 09/12/18 06:05 Dose: 5,000 unit Metronidazole (Flagyl 500mg Premixed Ivpb -) 500 mg in 100 mls @ 100 mls/hr IVPB Q8H-IV ART Last Admin: 09/12/18 10:00 Dose: 100 mls/hr Piperacillin Sod/Tazobactam (Sod 3.375 gm/ Dextrose) 50 mls @ 100 mls/hr IVPB Q8H-IV [facility]; Protocol Last Admin: 09/12/18 09:14 Dose: 100 mls/hr Insulin Aspart (Novolog Vial Sliding Scale -) 1 vial SQ ACHS [facility]; Protocol Last Admin: 09/12/18 06:05 Dose: Not Given Lactobacillus Acidophilus (Bacid -) 1 tab PO DAILY ART Last Admin: 09/12/18 09:16 Dose: 1 tab Loratadine (Claritin -) 10 mg PO DAILY ART Last Admin: 09/12/18 09:15 Dose: 10 mg Pantoprazole Sodium (Protonix Iv) 40 mg IVPUSH DAILY [facility] Last Admin: 09/12/18 09:15 Dose: 40 mg Scopolamine HBr (Transderm-Scop -) 1 patch TD Q72H ART Last Admin: 09/10/18 12:39 Dose: 1 patch Thiamine HCl (Vitamin B1 -) 100 mg PO HS [facility] Last Admin: 09/11/18 22:55 Dose: 100 mg Trihexyphenidyl HCl (Artane -) 1 mg PO BID [facility] Last Admin: 09/12/18 09:16 Dose: 1 mg Valproate Sodium (Depakene -) 250 mg GT BID [facility] Last Admin: 09/12/18 09:18 Dose: 250 mg Zinc Sulfate (Orazinc -) 220 mg GT DAILY@0800 [facility] Last Admin: 09/12/18 09:16 Dose: 220 mg - Objective Vital Signs: Vital Signs Temperature 98.3 F 09/12/18 09:59 Pulse Rate 91 H 09/12/18 09:59 Respiratory Rate 18 09/12/18 09:59 Blood Pressure 127/71 09/12/18 09:59 O2 Sat by Pulse Oximetry (%) 100 09/11/18 21:00 Labs: CBC, BMP 09/11/18 09:30 09/11/18 09:30 INR, PTT INR 1.21 (0.83-1.09) H 09/02/18 07:45
[2018-09-12 11:51] LABS: BASO % 0.4 % (0-2.0); EOS % 0.8 % (0-4.5); HEMATOCRIT 24.5 % (35.4-49); HEMOGLOBIN 8.4 GM/dL (11.7-16.9); LYMPH % 15.6 % (8-40); MCH 32.6 pg (25.7-33.7); MCHC 34.2 g/dl (32.0-35.9); MEAN CELL VOLUME 95.4 fl (80-96); MEAN PLT VOLUME 9.4 fl (7.5-11.1); MONO % 10.9 % (3.8-10.2); NEUT % 72.3 % (42.8-82.8); PLATELET COUNT 310 K/MM3 (134-434); RBC 2.57 M/mm3 (4.00-5.60); RDW 22.1 % (11.9-15.9); WHITE BLOOD COUNT 7.5 K/mm3 (4.0-10.0)
[2018-09-12] MEDS: COLLAGENASE CLOSTRIDIUM HIST. 30 GRAMS TUBE TP SCH (12:15)
[2018-09-12 12:24] LABS: ALBUMIN 2.2 g/dl (3.4-5.0); ALK PHOS 83 U/L (45-117); ANION GAP 4 MMOL/L (8-16); BILIRUBIN,TOTAL 0.2 mg/dL (0.2-1); BLOOD UREA NITROGEN 9 mg/dL (7-18); CHLORIDE 105 mmol/L (98-107); CO2 29 mmol/L (21-32); CREATININE 0.5 mg/dL (0.55-1.3); GLUCOSE,RANDOM 116 mg/dL (74-106); POTASSIUM 4.3 mmol/L (3.5-5.1); SGOT/AST 25 U/L (15-37); SGPT/ALT 19 U/L (13-61); SODIUM 138 mmol/L (136-145); TOT PROT 5.5 g/dl (6.4-8.2)
[2018-09-12] MEDS ORDERED: ACETAMINOPHEN 650 MG/20.3 ML ORAL SOLUTION (CUPS) PEG PRN (13:31)
[2018-09-12] MEDS ORDERED: LACTOBACILLUS ACIDOPHILUS 1 TABLET PEG SCH (13:45)
[2018-09-12] MEDS ORDERED: THIAMINE HCL 100 MG TABLET (FP) NGT SCH ×2 (13:45→22:00)
[2018-09-12] MEDS ORDERED: AMINO ACIDS/PROTEIN HYDROLYS 30 ML LIQUID.PKT PEG SCH (13:45)
[2018-09-12] MEDS ORDERED: DONEPEZIL HCL 10 MG TABLET (FP) PEG SCH ×2 (13:45→22:00)
[2018-09-12] MEDS ORDERED: ZINC SULFATE 220 MG CAPSULE (FP) PEG SCH (13:45)
[2018-09-12] MEDS ORDERED: LORATADINE 10 MG TABLET NR SCH (14:46)
[2018-09-12] MEDS: VALPROATE SODIUM 250 MG/5 ML UNIT DOSE CUP PEG SCH ×2 (14:55→22:18)
--- NOTE | 2018-09-12 15:57 | PN ---
Physical Exam: SUBJECTIVE: Patient seen and examined at the bedside. in no acute distress. mentation appears close to his baseline. awake and alert. mumbled speech. OBJECTIVE: awaiting bed offer. discharge planning. Vital Signs Period Temp Pulse Resp BP Sys/Cortes Pulse Ox Last 24 Hr 98.3 F-99.3 F 86-95 18-19 115-140/66-78 100 GENERAL: awake, opens eyes intermittently. mumbles a few words HEAD: Normal with no signs of trauma. has increased temporal wasting. EYES: PERRL, extraocular movements intact, sclera anicteric, conjunctiva clear. No ptosis. ENT: Ears normal, nares patent, oropharynx clear without exudates, moist mucous membranes - ngt feeds NECK: Trachea midline, full range of motion, supple. LUNGS: mild congestion anteriorly HEART: Regular rate and rhythm ABDOMEN: +peg tube EXTREMITIES: foot edema bilaterally. right hip with evidence of deep tissue injury, left hip with large 6cm x 8cm pressure ulcer unstageable. healing unstegeable left heel pressure ulcer, healed. NEUROLOGICAL: awake, alert Laboratory Results - last 24 hr 09/11/18 09/11/18 09/12/18 16:51 23:00 06:04 WBC RBC Hgb Hct MCV MCH MCHC RDW Plt Count MPV Absolute Neuts (auto) Neutrophils % Lymphocytes % Monocytes % Eosinophils % Basophils % Nucleated RBC % Sodium Potassium Chloride Carbon Dioxide Anion Gap BUN Creatinine Creat Clearance w eGFR POC Glucometer 110 108 110 Random Glucose Calcium Total Bilirubin AST ALT Alkaline Phosphatase Total Protein Albumin 09/12/18 09/12/18 09/12/18 11:30 11:30 12:13 WBC 7.5 RBC 2.57 L Hgb 8.4 L Hct 24.5 L MCV 95.4 MCH 32.6 MCHC 34.2 RDW 22.1 H Plt Count 310 MPV 9.4 Absolute Neuts (auto) 5.4 Neutrophils % 72.3 Lymphocytes % 15.6 Monocytes % 10.9 H Eosinophils % 0.8 Basophils % 0.4 Nucleated RBC % 0 Sodium 138 Potassium 4.3 Chloride 105 Carbon Dioxide 29 Anion Gap 4 L BUN 9 Creatinine 0.5 L Creat Clearance w eGFR > 60 POC Glucometer 115 Random Glucose 116 H Calcium 8.0 L Total Bilirubin 0.2 AST 25 ALT 19 Alkaline Phosphatase 83 Total Protein 5.5 L Albumin 2.2 L Active Medications Generic Name Dose Route Start Last Admin Trade Name Luz PRN Reason Stop Dose Admin Acetaminophen 650 mg 09/12/18 13:31 Tylenol Oral Solution - PEG Q6H PRN FEVER Amino Acids 30 ml 09/13/18 10:00 Prosource No Carb Liquid Pkt PEG DAILY ART Ascorbic Acid 500 mg 08/18/18 14:59 09/12/18 09:16 Vitamin C - GT 500 mg DAILY ART Administration Aspirin 81 mg 09/06/18 11:30 09/12/18 09:16 Asa - PEG 81 mg DAILY ART Administration Collagenase 1 applic 08/27/18 15:55 09/12/18 12:15 Santyl - TP 1 applic DAILY ART Administration Protocol Donepezil HCl 10 mg 09/12/18 22:00 Aricept - PEG HS ART Heparin Sodium (Porcine) 5,000 unit 09/06/18 14:00 09/12/18 15:02 Heparin - SQ 5,000 unit TID ART Administration Metronidazole 500 mg in 100 mls @ 100 mls/hr 09/04/18 10:00 09/12/18 10:00 Flagyl 500mg Premixed Ivpb - IVPB 100 mls/hr Q8H-IV ART Administration Piperacillin Sod/Tazobactam 50 mls @ 100 mls/hr 09/07/18 18:00 09/12/18 09:14 Sod 3.375 gm/ Dextrose IVPB 100 mls/hr Q8H-IV ART Administration Protocol Insulin Aspart 1 vial 08/13/18 11:00 09/12/18 12:14 Novolog Vial Sliding Scale - SQ Not Given ACHS [facility] Protocol Lactobacillus Acidophilus 1 tab 09/13/18 10:00 Bacid - PEG DAILY ART Loratadine 10 mg 09/12/18 14:46 Claritin - NR DAILY ART Pantoprazole Sodium 40 mg 08/29/18 11:15 09/12/18 09:15 Protonix Iv IVPUSH 40 mg DAILY ART Administration Scopolamine HBr 1 patch 08/23/18 12:00 09/10/18 12:39 Transderm-Scop - TD 1 patch Q72H ART Administration Thiamine HCl 100 mg 09/12/18 22:00 Vitamin B1 - NGT HS ART Trihexyphenidyl HCl 1 mg 08/28/18 22:00 09/12/18 09:16 Artane - PO 1 mg BID ART Administration Valproate Sodium 250 mg 09/12/18 13:45 09/12/18 14:55 Depakene - PEG Not Given BID [facility] Zinc Sulfate 220 mg 09/13/18 08:00 Orazinc - PEG DAILY@0800 [facility] ASSESSMENT/PLAN: Patient is a 62 year old male with history of dementia, prior alcohol abuse, CVA 's, and hyperlipidemia. He presented to the ED with an altered mental status, poor oral intake of oral foods and fluids. Patient was reportedly on haldol and seroquel and has been more lethargic with increased muscle rigidity from NH. ID: Sepsis/Bacteremia/mrsa pneumonia, resolved. WBC normalized. on Zosyn, Vanco, Flagyl. ID following. Neuro: Acute metabolic encephalopathy. resolved mental status back to baseline. Neuroleptic malignant syndrome/fevers On artane bid Advanced dementia. mental status waxes and wanes. At times alert, at times lethargic Vascular Large unstageable left hip wound and Large left heel wound. continue Santyl. Neuro: Seizure Disorder h/o CVA Schizophrenia Alzheimer's Dementia Advanced Dementia Shingles history On ASA 81mg On Valproate 250mg IV BID, Donepezil 10mg PO hs. on Artane bid GI elevated ast/alt, resolved fen monitor electrolytes jevity 1.5 feeds, tolerating full code. Disposition. awaiting placement. discharge planning. Visit type - Emergency Visit Emergency Visit: Yes ED Registration Date: 07/28/18 Care time: The patient presented to the Emergency Department on the above date and was hospitalized for further evaluation of their emergent condition. - New Patient This patient is new to me today: No - Critical Care Critical Care patient: No - Discharge Referral Referred to [facility] Med P.C.: No
[2018-09-13] MEDS ORDERED: DEXTROSE 5%-WATER - 50 ML IVPB ONE (01:14)
[2018-09-13] MEDS ORDERED: PIPERACILLIN/TAZOBACTAM 3.375 GM VIAL IVPB ONE (01:14)
[2018-09-13] MEDS: PIPERACILLIN/TAZOB 3.375 GM 3.375 GM in DEXTROSE 5%-WATER - 50 ML IVPB SCH ×2 (01:51→13:21)
[2018-09-13] MEDS: INSULIN SLIDING SCALE (NOVOLOG) 1 VIAL SQ SCH ×3 (06:05→18:06)
[2018-09-13] MEDS: HEPARIN NA (PORCINE) 5,000 UNITS/ML 1ML VIAL SQ SCH ×2 (06:05→13:20)
[2018-09-13] MEDS ORDERED: ZINC SULFATE 220 MG CAPSULE (FP) PEG SCH (08:00)
[2018-09-13 08:11] LABS: ALBUMIN 2.3 g/dl (3.4-5.0); ALK PHOS 85 U/L (45-117); ANION GAP 7 MMOL/L (8-16); BILIRUBIN,TOTAL 0.1 mg/dL (0.2-1); BLOOD UREA NITROGEN 8 mg/dL (7-18); CALCIUM 8.1 mg/dL (8.5-10.1); CHLORIDE 104 mmol/L (98-107); CO2 27 mmol/L (21-32); CREATININE 0.6 mg/dL (0.55-1.3); GLUCOSE,RANDOM 110 mg/dL (74-106); POTASSIUM 4.6 mmol/L (3.5-5.1); SGOT/AST 20 U/L (15-37); SGPT/ALT 20 U/L (13-61); SODIUM 138 mmol/L (136-145); TOT PROT 5.8 g/dl (6.4-8.2)
[2018-09-13] MEDS ORDERED: LACTOBACILLUS ACIDOPHILUS 1 TABLET PEG SCH (10:00)
[2018-09-13] MEDS ORDERED: AMINO ACIDS/PROTEIN HYDROLYS 30 ML LIQUID.PKT PEG SCH (10:00)
[2018-09-13] MEDS: TRIHEXYPHENIDYL HCL 2 MG TABLET PO SCH (10:22)
--- NOTE | 2018-09-13 10:25 | PN ---
Progress Note, Physician Chief Complaint: The patient seen and examined in his bed. Nonverbal. Seems comfortable. Clinical status unchanged. Tube feeding well tolerated.Alert. Awake. Maintains good urine output. History of Present Illness: 62 year old gentleman with hx of CVA, Dementia, Hx of ETOH abuse, HLD who presented with AMS, Fevers and poor oral intake with encephlopathy/MRSA Pneumonia/Persistent fevers and Hypernatremia. Still on IV Antibiotics. Renal/Electrolyte profile improving and at his baseline. - Current Medication List Current Medications: Active Medications Acetaminophen (Tylenol Oral Solution -) 650 mg PEG Q6H PRN PRN Reason: FEVER Amino Acids (Prosource No Carb Liquid Pkt) 30 ml PEG DAILY [facility] Ascorbic Acid (Vitamin C -) 500 mg GT DAILY [facility] Last Admin: 09/12/18 09:16 Dose: 500 mg Aspirin (Asa -) 81 mg PEG DAILY [facility] Last Admin: 09/12/18 09:16 Dose: 81 mg Collagenase (Santyl -) 1 applic TP DAILY [facility]; Protocol Last Admin: 09/12/18 12:15 Dose: 1 applic Donepezil HCl (Aricept -) 10 mg PEG HS [facility] Last Admin: 09/12/18 22:16 Dose: 10 mg Heparin Sodium (Porcine) (Heparin -) 5,000 unit SQ TID ART Last Admin: 09/13/18 06:05 Dose: 5,000 unit Metronidazole (Flagyl 500mg Premixed Ivpb -) 500 mg in 100 mls @ 100 mls/hr IVPB Q8H-IV ART Last Admin: 09/13/18 02:14 Dose: 100 mls/hr Piperacillin Sod/Tazobactam (Sod 3.375 gm/ Dextrose) 50 mls @ 100 mls/hr IVPB Q8H-IV [facility]; Protocol Last Admin: 09/13/18 01:51 Dose: 100 mls/hr Insulin Aspart (Novolog Vial Sliding Scale -) 1 vial SQ ACHS [facility]; Protocol Last Admin: 09/13/18 06:05 Dose: Not Given Lactobacillus Acidophilus (Bacid -) 1 tab PEG DAILY [facility] Loratadine (Claritin -) 10 mg NR DAILY [facility] Pantoprazole Sodium (Protonix Iv) 40 mg IVPUSH DAILY [facility] Last Admin: 09/12/18 09:15 Dose: 40 mg Scopolamine HBr (Transderm-Scop -) 1 patch TD Q72H [facility] Last Admin: 09/10/18 12:39 Dose: 1 patch Thiamine HCl (Vitamin B1 -) 100 mg NGT HS [facility] Last Admin: 09/12/18 22:17 Dose: 100 mg Trihexyphenidyl HCl (Artane -) 1 mg PO BID [facility] Last Admin: 09/12/18 22:17 Dose: 1 mg Valproate Sodium (Depakene -) 250 mg PEG BID [facility] Last Admin: 09/12/18 22:18 Dose: 250 mg Zinc Sulfate (Orazinc -) 220 mg PEG DAILY@0800 [facility] - Objective Vital Signs: Vital Signs Temperature 98.6 F 09/13/18 06:06 Pulse Rate 91 H 09/13/18 06:06 Respiratory Rate 18 09/13/18 06:06 Blood Pressure 108/63 09/13/18 06:06 O2 Sat by Pulse Oximetry (%) 98 09/12/18 21:00 Constitutional: Yes: No Distress, Calm Eyes: Yes: Conjunctiva Clear HENT: Yes: Normocephalic Cardiovascular: Yes: Regular Rate and Rhythm, S1, S2 Respiratory: Yes: CTA Bilaterally Gastrointestinal: Yes: Normal Bowel Sounds, Soft, Other (G Tube in place) Genitourinary: No: Bladder Distention, CVA Tenderness - Left, CVA Tenderness - Right, Hematuria Labs: CBC, BMP 09/12/18 11:30 09/13/18 06:00 INR, PTT INR 1.21 (0.83-1.09) H 09/02/18 07:45 Problem List - Problems (1) MEE (acute kidney injury) Code(s): N17.9 - ACUTE KIDNEY FAILURE, UNSPECIFIED (2) Diabetes type 2, controlled Code(s): E11.9 - TYPE 2 DIABETES MELLITUS WITHOUT COMPLICATIONS (3) Electrolyte abnormality Code(s): E87.8 - OTH DISORDERS OF ELECTROLYTE AND FLUID BALANCE, NEC (4) Hypernatremia Code(s): E87.0 - HYPEROSMOLALITY AND HYPERNATREMIA (5) PNA (pneumonia) Code(s): J18.9 - PNEUMONIA, UNSPECIFIED ORGANISM (6) Sepsis Code(s): A41.9 - SEPSIS, UNSPECIFIED ORGANISM Assessment/Plan 62 year old gentleman with hx of CVA, Dementia, Hx of ETOH abuse, HLD who presented with AMS, Fevers and poor oral intake with encephlopathy/MRSA PNA/ Persistent fevers and Hypernatremia. #Hypernatremia ...normal and stable #AMS/Encephlopathy. Seems to be at his baseline now. #Renal functions normal at this point. Serum Na normalized. Continue free water as needed with NGT. Antibiotics as ordered Will monitor the Renal functions with you. Thanks again. Sarai Gusman MD
--- NOTE | 2018-09-13 10:40 | PN ---
Physical Exam: SUBJECTIVE: Patient seen and examined OBJECTIVE: Vital Signs Period Temp Pulse Resp BP Sys/Cortes Pulse Ox Last 24 Hr 98.3 F-99.3 F 91-98 18-18 108-141/63-84 98 GENERAL: awake, opens eyes intermittently. mumbles a few words HEAD: Normal with no signs of trauma. has increased temporal wasting. EYES: PERRL, extraocular movements intact, sclera anicteric, conjunctiva clear. No ptosis. ENT: Ears normal, nares patent, oropharynx clear without exudates, moist mucous membranes - ngt feeds NECK: Trachea midline, full range of motion, supple. LUNGS: mild congestion anteriorly HEART: Regular rate and rhythm ABDOMEN: +peg tube EXTREMITIES: foot edema bilaterally. right hip with evidence of deep tissue injury, left hip with large 6cm x 8cm pressure ulcer unstageable. healing unstegeable left heel pressure ulcer, healed. NEUROLOGICAL: awake, alert Laboratory Results - last 24 hr 09/12/18 09/12/18 09/12/18 11:30 11:30 12:13 WBC 7.5 RBC 2.57 L Hgb 8.4 L Hct 24.5 L MCV 95.4 MCH 32.6 MCHC 34.2 RDW 22.1 H Plt Count 310 MPV 9.4 Absolute Neuts (auto) 5.4 Neutrophils % 72.3 Lymphocytes % 15.6 Monocytes % 10.9 H Eosinophils % 0.8 Basophils % 0.4 Nucleated RBC % 0 Sodium 138 Potassium 4.3 Chloride 105 Carbon Dioxide 29 Anion Gap 4 L BUN 9 Creatinine 0.5 L Creat Clearance w eGFR > 60 POC Glucometer 115 Random Glucose 116 H Calcium 8.0 L Total Bilirubin 0.2 AST 25 ALT 19 Alkaline Phosphatase 83 Total Protein 5.5 L Albumin 2.2 L 09/12/18 09/12/18 09/13/18 16:58 22:25 06:00 WBC RBC Hgb Hct MCV MCH MCHC RDW Plt Count MPV Absolute Neuts (auto) Neutrophils % Lymphocytes % Monocytes % Eosinophils % Basophils % Nucleated RBC % Sodium 138 Potassium 4.6 Chloride 104 Carbon Dioxide 27 Anion Gap 7 L BUN 8 Creatinine 0.6 Creat Clearance w eGFR > 60 POC Glucometer 90 132 Random Glucose 110 H Calcium 8.1 L Total Bilirubin 0.1 L AST 20 ALT 20 Alkaline Phosphatase 85 Total Protein 5.8 L Albumin 2.3 L 09/13/18 06:03 WBC RBC Hgb Hct MCV MCH MCHC RDW Plt Count MPV Absolute Neuts (auto) Neutrophils % Lymphocytes % Monocytes % Eosinophils % Basophils % Nucleated RBC % Sodium Potassium Chloride Carbon Dioxide Anion Gap BUN Creatinine Creat Clearance w eGFR POC Glucometer 104 Random Glucose Calcium Total Bilirubin AST ALT Alkaline Phosphatase Total Protein Albumin Active Medications Generic Name Dose Route Start Last Admin Trade Name Freq PRN Reason Stop Dose Admin Acetaminophen 650 mg 09/12/18 13:31 Tylenol Oral Solution - PEG Q6H PRN FEVER Amino Acids 30 ml 09/13/18 10:00 Prosource No Carb Liquid Pkt PEG DAILY [facility] Ascorbic Acid 500 mg 08/18/18 14:59 09/12/18 09:16 Vitamin C - GT 500 mg DAILY ART Administration Aspirin 81 mg 09/06/18 11:30 09/12/18 09:16 Asa - PEG 81 mg DAILY ART Administration Collagenase 1 applic 08/27/18 15:55 09/12/18 12:15 Santyl - TP 1 applic DAILY ART Administration Protocol Donepezil HCl 10 mg 09/12/18 22:00 09/12/18 22:16 Aricept - PEG 10 mg HS ART Administration Heparin Sodium (Porcine) 5,000 unit 09/06/18 14:00 09/13/18 06:05 Heparin - SQ 5,000 unit TID ART Administration Metronidazole 500 mg in 100 mls @ 100 mls/hr 09/04/18 10:00 09/13/18 02:14 Flagyl 500mg Premixed Ivpb - IVPB 100 mls/hr Q8H-IV ART Administration Piperacillin Sod/Tazobactam 50 mls @ 100 mls/hr 09/07/18 18:00 09/13/18 01:51 Sod 3.375 gm/ Dextrose IVPB 100 mls/hr Q8H-IV ART Administration Protocol Insulin Aspart 1 vial 08/13/18 11:00 09/13/18 06:05 Novolog Vial Sliding Scale - SQ Not Given ACHS ART Protocol Lactobacillus Acidophilus 1 tab 09/13/18 10:00 Bacid - PEG DAILY [facility] Loratadine 10 mg 09/12/18 14:46 Claritin - NR DAILY [facility] Pantoprazole Sodium 40 mg 08/29/18 11:15 09/12/18 09:15 Protonix Iv IVPUSH 40 mg DAILY ART Administration Scopolamine HBr 1 patch 08/23/18 12:00 09/10/18 12:39 Transderm-Scop - TD 1 patch Q72H ART Administration Thiamine HCl 100 mg 09/12/18 22:00 09/12/18 22:17 Vitamin B1 - NGT 100 mg HS ART Administration Trihexyphenidyl HCl 1 mg 08/28/18 22:00 09/12/18 22:17 Artane - PO 1 mg BID ART Administration Valproate Sodium 250 mg 09/12/18 13:45 09/12/18 22:18 Depakene - PEG 250 mg BID ART Administration Zinc Sulfate 220 mg 09/13/18 08:00 Orazinc - PEG DAILY@0800 [facility] ASSESSMENT/PLAN: Patient is a 62 year old male with history of dementia, prior alcohol abuse, CVA 's, and hyperlipidemia. He presented to the ED with an altered mental status, poor oral intake of oral foods and fluids. Patient was reportedly on haldol and seroquel and has been more lethargic with increased muscle rigidity from [place]. ID: Sepsis/Bacteremia/mrsa pneumonia, resolved. WBC normalized. on Zosyn, Vanco, Flagyl. ID following. Neuro: Acute metabolic encephalopathy. resolved mental status back to baseline. Neuroleptic malignant syndrome/fevers On artane bid Advanced dementia. mental status waxes and wanes. At times alert, at times lethargic Vascular Large unstageable left hip wound and Large left heel wound. continue Santyl. Neuro: Seizure Disorder h/o CVA Schizophrenia Alzheimer's Dementia Advanced Dementia Shingles history On ASA 81mg On Valproate 250mg IV BID, Donepezil 10mg PO hs. on Artane bid GI elevated ast/alt, resolved fen monitor electrolytes jevity 1.5 feeds, tolerating full code. Disposition. awaiting placement. discharge planning. Visit type - Emergency Visit Emergency Visit: Yes ED Registration Date: 07/28/18 Care time: The patient presented to the Emergency Department on the above date and was hospitalized for further evaluation of their emergent condition. - New Patient This patient is new to me today: No - Critical Care Critical Care patient: No - Discharge Referral Referred to [facility] Med P.C.: No
[2018-09-13] MEDS: VALPROATE SODIUM 250 MG/5 ML UNIT DOSE CUP PEG SCH (11:17)
[2018-09-13] MEDS: ASPIRIN 81 MG CHEWABLE TABLETS PEG SCH (11:18)
[2018-09-13] MEDS: PANTOPRAZOLE SODIUM 40 MG VIAL IVPUSH SCH (11:18)
--- NOTE | 2018-09-13 11:37 | PN ---
Progress Note, Physician - Current Medication List Current Medications: Active Medications Acetaminophen (Tylenol Oral Solution -) 650 mg PEG Q6H PRN PRN Reason: FEVER Amino Acids (Prosource No Carb Liquid Pkt) 30 ml PEG DAILY [facility] Ascorbic Acid (Vitamin C -) 500 mg GT DAILY [facility] Last Admin: 09/12/18 09:16 Dose: 500 mg Aspirin (Asa -) 81 mg PEG DAILY [facility] Last Admin: 09/12/18 09:16 Dose: 81 mg Collagenase (Santyl -) 1 applic TP DAILY [facility]; Protocol Last Admin: 09/12/18 12:15 Dose: 1 applic Donepezil HCl (Aricept -) 10 mg PEG HS [facility] Last Admin: 09/12/18 22:16 Dose: 10 mg Heparin Sodium (Porcine) (Heparin -) 5,000 unit SQ TID [facility] Last Admin: 09/13/18 06:05 Dose: 5,000 unit Metronidazole (Flagyl 500mg Premixed Ivpb -) 500 mg in 100 mls @ 100 mls/hr IVPB Q8H-IV [facility] Last Admin: 09/13/18 02:14 Dose: 100 mls/hr Piperacillin Sod/Tazobactam (Sod 3.375 gm/ Dextrose) 50 mls @ 100 mls/hr IVPB Q8H-IV [facility]; Protocol Last Admin: 09/13/18 01:51 Dose: 100 mls/hr Insulin Aspart (Novolog Vial Sliding Scale -) 1 vial SQ ACHS [facility]; Protocol Last Admin: 09/13/18 06:05 Dose: Not Given Lactobacillus Acidophilus (Bacid -) 1 tab PEG DAILY [facility] Loratadine (Claritin -) 10 mg NR DAILY [facility] Pantoprazole Sodium (Protonix Iv) 40 mg IVPUSH DAILY [facility] Last Admin: 09/12/18 09:15 Dose: 40 mg Scopolamine HBr (Transderm-Scop -) 1 patch TD Q72H [facility] Last Admin: 09/10/18 12:39 Dose: 1 patch Thiamine HCl (Vitamin B1 -) 100 mg NGT HS [facility] Last Admin: 09/12/18 22:17 Dose: 100 mg Trihexyphenidyl HCl (Artane -) 1 mg PO BID [facility] Last Admin: 09/12/18 22:17 Dose: 1 mg Valproate Sodium (Depakene -) 250 mg PEG BID [facility] Last Admin: 09/12/18 22:18 Dose: 250 mg Zinc Sulfate (Orazinc -) 220 mg PEG DAILY@0800 [facility] - Objective Vital Signs: Vital Signs Temperature 98.6 F 09/13/18 06:06 Pulse Rate 91 H 09/13/18 06:06 Respiratory Rate 18 09/13/18 06:06 Blood Pressure 108/63 09/13/18 06:06 O2 Sat by Pulse Oximetry (%) 98 09/12/18 21:00 Labs: CBC, BMP 09/12/18 11:30 09/13/18 06:00 INR, PTT INR 1.21 (0.83-1.09) H 09/02/18 07:45
[2018-09-13] MEDS: ASCORBIC ACID 500 MG TABLET (FP) GT SCH (13:17)
[2018-09-13] MEDS: COLLAGENASE CLOSTRIDIUM HIST. 30 GRAMS TUBE TP SCH (13:20)
[2018-09-13] MEDS: SCOPOLAMINE HYDROBROMIDE 1 PATCH PATCH.TD72 TD SCH (13:21)
--- NOTE | 2018-09-13 14:40 | DS ---
Physical Exam: SUBJECTIVE: Patient seen and examined at the bedside. stable. He is for discharge to [place] today. OBJECTIVE: Vital Signs Period Temp Pulse Resp BP Sys/Cortes Pulse Ox Last 24 Hr 98.3 F-98.8 F 91-98 18-18 108-141/63-84 98 PHYSICAL EXAM GENERAL: awake, opens eyes intermittently. mumbles a few words - awake and alert today. attempting to communicate. HEAD: Normal with no signs of trauma. has increased temporal wasting. EYES: PERRL, extraocular movements intact, sclera anicteric, conjunctiva clear. No ptosis. ENT: Ears normal, nares patent, oropharynx clear without exudates, moist mucous membranes - ngt feeds NECK: Trachea midline, full range of motion, supple. LUNGS: mild congestion anteriorly HEART: Regular rate and rhythm ABDOMEN: +peg tube EXTREMITIES: foot edema bilaterally. right hip with evidence of deep tissue injury, left hip with large 6cm x 8cm pressure ulcer unstageable. healing unstegeable left heel pressure ulcer, healed. NEUROLOGICAL: awake, alert LABS Laboratory Results - last 24 hr 09/12/18 09/12/18 09/13/18 16:58 22:25 06:00 Sodium 138 Potassium 4.6 Chloride 104 Carbon Dioxide 27 Anion Gap 7 L BUN 8 Creatinine 0.6 Creat Clearance w eGFR > 60 POC Glucometer 90 132 Random Glucose 110 H Calcium 8.1 L Total Bilirubin 0.1 L AST 20 ALT 20 Alkaline Phosphatase 85 Total Protein 5.8 L Albumin 2.3 L 09/13/18 06:03 Sodium Potassium Chloride Carbon Dioxide Anion Gap BUN Creatinine Creat Clearance w eGFR POC Glucometer 104 Random Glucose Calcium Total Bilirubin AST ALT Alkaline Phosphatase Total Protein Albumin HOSPITAL COURSE: Date of Admission:07/28/18 Date of Discharge: 09/13/18 Patient is a 62 year old male with history of dementia, prior alcohol abuse, CVA 's, and hyperlipidemia. He presented to the ED on 07/28/2018 with an altered mental status, poor oral intake of oral foods and fluids. Patient was reportedly on haldol and seroquel and has been more lethargic with increased muscle rigidity from [place]. ID: Sepsis/Bacteremia/mrsa pneumonia, resolved. Has been treated with IV antibiotics for his prolonged hospital stay and no longer septic. His has completed a full course of antibiotics. He has been followed by Dr. Fontanez (ID specialist) during hospitalization. Neuro: Acute metabolic encephalopathy. resolved mental status back to baseline. Neuroleptic malignant syndrome/fevers - resolved On Artane twice per day. Advanced dementia. mental status waxes and wanes. At times alert, at times lethargic. but overall mental status has improved. Vascular Large unstageable left hip wound and Large left heel wound. continue Santyl and monitor. On Prosource BID. Neuro: Seizure Disorder/h/o CVA/Schizophrenia/Alzheimer's Dementia/Advanced Dementia/ Shingles history - chronic On ASA 81mg, On Valproate 250mg IV BID, Donepezil 10mg PO hs. on Artane bid GI elevated ast/alt, resolved fen monitor electrolytes jevity 1.5 feeds, tolerating. at goal rated. full code. Disposition. awaiting placement. discharge to [facility]. Minutes to complete discharge: 60 Discharge Summary Reason For Visit: NEUROLEPTIC MALIGNANT SYND, FEVER OF UNKNOWN ORIGI Current Active Problems MEE (acute kidney injury) (Acute) Abnormal liver function tests (Acute) Diabetes type 2, controlled (Acute) Diarrhea (Acute) Electrolyte abnormality (Acute) Excessive mucus secretion (Acute) Fever of unknown origin (Acute) Hypernatremia (Acute) Hypokalemia (Acute) Low hemoglobin and low hematocrit (Acute) Neuroleptic malignant syndrome (Acute) PNA (pneumonia) (Acute) S/P percutaneous endoscopic gastrostomy (PEG) tube placement (Acute) Schizophrenia (Acute) Seizure disorder (Acute) Seizures (Acute) Sepsis (Acute) Toxic metabolic encephalopathy (Acute) Condition: Stable - Instructions Diet, Activity, Other Instructions: Mr Alejandre: You were admitted to [facility] for altered mental status and will be discharged to [facility]. Here are our recommendations. Infection: During your hospitalization, you developed fevers and had an infection that went into your blood stream. We have treated you with antibiotics for your entire hospital stay and will be discharging you without antibiotics. You have remained without a fever and are stable for discharge. You have been cleared by the infectious disease physician (Dr. Fontanez). Neuroleptic malignant syndrome/Advanced dementia: Continue the Artane twice daily per neurology recommendations. Wound: During your hospitalization, you developed a right hip deep tissue injury and a left hip with large 6cm x 8cm pressure ulcer that is unstageable. You were evaluated by a vascular physician who recommended that you continue Santyl daily to this wound. Keep your heels elevated at all times. Please continue the Prosource twice daily. Seizure Disorder/Alzheimer dementia/Advanced dementia/history of CVA/ Schizophrenia On Valproate 250mg IV BID, Donepezil 10mg PO hs. on Artane bid Continue statin therapy Please follow up with Dr. Heart (neurologist) Follow ups Please follow up with Dr. Nieto (Neurologist) within 2-4 weeks after discharge. Thank you for allowing us to care for you. Referrals: Toni Heart MD [Staff Physician] - 1 Month Davina Fontanez MD [Staff Physician] - 3 Weeks Theresa Estes MD [Primary Care Provider] - 2 Weeks Disposition: [facility]UST[facility]ACILITY - Home Medications Comprehensive Discharge Medication List: Ambulatory Orders Atorvastatin Calcium [Lipitor] 10 mg PO HS 07/28/18 Donepezil HCl 10 mg PO DAILY 07/28/18 Amino Acids/Protein Hydrolys [Prosource No Carb Liquid Pkt] 30 ml PEG DAILY packet 09/13/18 Ascorbic Acid [Vitamin C -] 500 mg GT DAILY tablet 09/13/18 Aspirin [ASA -] 81 mg PEG DAILY tab.chew 09/13/18 Collagenase Clostridium Hist. [Santyl -] 1 applic TP DAILY tube 09/13/18 Heparin - 5,000 unit SQ TID vial 09/13/18 Insulin Sliding Scale [Novolog Vial Sliding Scale -] 1 vial SQ ACHS units 09/13 Lactobacillus Acidophilus [Bacid -] 1 tab PEG DAILY tab 09/13/18 Loratadine [Claritin -] 10 mg NR DAILY tablet 09/13/18 Pantoprazole Sodium [Protonix IV] 40 mg IVPUSH DAILY vial 09/13/18 Scopolamine Hydrobromide [Transderm-Scop -] 1 patch TD Q72H patch.td72 Thiamine HCl [Vitamin B1 -] 100 mg NGT HS tablet 09/13/18 Trihexyphenidyl HCl [Artane -] 1 mg PO BID tablet 09/13/18 Valproate Sodium [Depakene -] 250 mg PEG BID cup 09/13/18 This patient is new to me today: No Emergency Visit: Yes ED Registration Date: 07/28/18 Care time: The patient presented to the Emergency Department on the above date and was hospitalized for further evaluation of their emergent condition. Critical Care patient: No - Discharge Referral Referred to [facility] Med P.C.: No
[2018-09-13 15:25] VITALS: BP 125/70; PULSE 95; TEMP 98.5
--- NOTE | 2018-09-14 22:12 | EKG ---
Test Reason : Blood Pressure : / mmHG Vent. Rate : 104 BPM Atrial Rate : 104 BPM P-R Int : 114 ms QRS Dur : 064 ms QT Int : 332 ms P-R-T Axes : 027 -15 -41 degrees QTc Int : 436 ms SINUS TACHYCARDIA BASELINE ARTIFACT WHEN COMPARED WITH ECG OF 04-SEP-2018 07:23, LIKELY NO SIGNIFICANT CHANGES Confirmed by RENE MENON MD ([id number]) on 09/14/2018 10:11:37 PM Referred By: Confirmed By:RENE MENON MD
== END 2018-09-13 18:10 | DRG 710 ==
LOC: JER 13:56 → JERBED 17:53 → UNDOADMIN 18:08 → JICU 20:44 → J5S 08-01 00:56
PROVIDERS: ADMIT Internal Medicine; ATTEND Nurse Practitioner Family
PROC: 0DH67UZ Insertion of Feeding Device into Stomach, Via Natural or Artificial Opening (ICD-10-PCS; 2018-07-31)
PROC: 009U3ZX Drainage of Spinal Canal, Percutaneous Approach, Diagnostic (ICD-10-PCS; 2018-08-19)
PROC: 0DH64UZ Insertion of Feeding Device into Stomach, Percutaneous Endoscopic Approach (ICD-10-PCS; principal; 2018-09-02)
PROC: 3E0G76Z Introduction of Nutritional Substance into Upper GI, Via Natural or Artificial Opening (ICD-10-PCS; 2018-09-02)
PROC: 0D163J4 Bypass Stomach to Cutaneous with Synthetic Substitute, Percutaneous Approach (ICD-10-PCS; 2018-09-02)
DX: A41.02 Sepsis due to Methicillin resistant Staphylococcus aureus (principal); J69.0 Pneumonitis due to inhalation of food and vomit; N17.9 Acute kidney failure, unspecified; L89.220 Pressure ulcer of left hip, unstageable; L89.151 Pressure ulcer of sacral region, stage 1; E46 Unspecified protein-calorie malnutrition; G21.0 Malignant neuroleptic syndrome; R13.10 Dysphagia, unspecified; L89.321 Pressure ulcer of left buttock, stage 1; L89.311 Pressure ulcer of right buttock, stage 1; E87.2 Acidosis; G92 Toxic encephalopathy; F02.81 Dementia in other diseases classified elsewhere, unspecified severity, with behavioral disturbance; E87.0 Hyperosmolality and hypernatremia; E88.09 Other disorders of plasma-protein metabolism, not elsewhere classified; R47.01 Aphasia; D69.6 Thrombocytopenia, unspecified; E83.42 Hypomagnesemia; E83.39 Other disorders of phosphorus metabolism; F20.0 Paranoid schizophrenia; L89.610 Pressure ulcer of right heel, unstageable; G30.9 Alzheimer's disease, unspecified; R65.20 Severe sepsis without septic shock; E53.8 Deficiency of other specified B group vitamins; H60.11 Cellulitis of right external ear; R74.8 Abnormal levels of other serum enzymes; Z68.23 Body mass index [BMI] 23.0-23.9, adult; G40.909 Epilepsy, unspecified, not intractable, without status epilepticus; Z86.73 Personal history of transient ischemic attack (TIA), and cerebral infarction without residual deficits; I25.10 Atherosclerotic heart disease of native coronary artery without angina pectoris; E53.9 Vitamin B deficiency, unspecified; E54 Ascorbic acid deficiency; F10.10 Alcohol abuse, uncomplicated; M62.49 Contracture of muscle, multiple sites; E87.6 Hypokalemia; R94.5 Abnormal results of liver function studies; R19.7 Diarrhea, unspecified; E86.0 Dehydration; D64.9 Anemia, unspecified
CPT/HCPCS: 36415; 36430; 36600; 49440; 70450-TC; 70486-TC; 70544-TC; 71045-TC-FY; 71250-TC; 71275-TC; 74018-TC-FY; 74176-TC; 76705-TC; 80048; 80053; 80076; 80164; 81003; 81015; 82172; 82550; 82552; 82553; 82607; 82746; 82803; 82945; 82962; 82977; 83010; 83036; 83605; 83735; 83880; 83883; 84100; 84157; 84295; 84439; 84443; 84460; 84484; 85025; 85027; 85379; 85610; 85651; 85730; 86140; 86480; 86663; 86664; 86665; 86694; 86704; 86706; 86708; 86735; 86765; 86787; 86788; 86789; 86850; 86900; 86901; 87040; 87070; 87077; 87086; 87186; 87205; 87324; 87340; 87449; 87529; 87804; 87807; 93005; 93010; 93306-TC; 93970-TC; 95816; 99285-25; G0480; J0131; J1100; J1644; J3480; J7030; P9034